=== PATIENT | male | born 1965 | race Caucasian/White ===

== ENCOUNTER 2023-01-31 12:06 | Emergency (ER) | payer MEDICAID, SELFPAY ==
[2023-01-31] VITALS (8 sets, daily range): BP systolic 113–144; BP diastolic 63–87; PULSE 52–79; RESP 17–18; TEMP 36.6–36.7; O2SAT 95–98; BMI 28.0
--- NOTE | 2023-01-31 12:46 | CT_ITS ---
FINAL REPORT TECHNIQUE: Axial CT images of the abdomen and pelvis were obtained after the administration of IV contrast. Coronal reformatted images were also obtained and reviewed. This study was performed with techniques to keep radiation doses as low as reasonably achievable (ALARA). Individualized dose reduction techniques using automated exposure control or adjustment of mA and/or kV according to the patient's size were employed. CLINICAL HISTORY: abd pain, distention COMPARISON: none FINDINGS: CT OF THE ABDOMEN AND PELVIS WITH CONTRAST Abdomen: The lung bases are clear. The heart is normal in size. There is fatty infiltration of the liver. The gallbladder is present. The spleen is unremarkable. No adrenal mass is present. The pancreas has an unremarkable appearance. There is mild bilateral hydronephrosis and hydroureter. The aorta is normal in caliber. There is no free fluid or adenopathy. No mass or abnormal fluid collection is seen. Pelvis: The appendix normal. The urinary bladder is diffusely distended and extends to the level of the umbilicus. There is diffuse bladder wall thickening, likely inflammatory. The prostate is diffusely enlarged measuring proximally 7 cm in transverse diameter. There is no evidence of mass or adenopathy. There is no evidence of bowel obstruction. There are small bilateral inguinal hernias containing fat. IMPRESSION: Prostate diffusely enlarged. Diffuse distention of the urinary bladder with bladder wall thickening which is likely inflammatory. Bilateral hydronephrosis and hydroureter. Fatty infiltration of the liver. Reviewed, Interpreted and Dictated by Neo Harmon III, MD Transcribed by Olga Conrad Authenticated and [facility]
[2023-01-31 13:18] LABS: Microscopic, Urine URINE MICROSCOPIC (MICROSCOPIC)
[2023-01-31 13:20] LABS: Appearance,Urine CLEAR (Clear); Bilirubin,Urine Negative (Negative); Blood, Urine 1+ (Negative); Color,Urine YELLOW (Yellow); Glucose,Urine (UA) 3+ (Negative); Ketones,Urine 1+ (Negative); Leukocyte Esterase,Urine Negative (Negative); Nitrate,Urine Negative (Negative); PH,Urine 5.5 (5.0-8.5); Protein,Urine Negative (Negative); Urobilinogen,Urine 0.2 EU/dl (0.2)
[2023-01-31 13:20] LABS: Basophils % 0.3 % (0.1-2.0); Eosinophils % 0.2 % (0.1-12.0); Hematocrit 46.3 % (42.0-52.0); Hemoglobin 15.1 g/dL (14.1-18.0); Lymphocytes # 0.9 K/mm3 (0.7-4.5); Lymphocytes % 9.7 % (10-50); Mean Corpuscular HGB Conc 32.7 g/dL (31.8-35.4); Mean Corpuscular Hemoglobin 29.7 pg (27.0-31.2); Mean Corpuscular Volume 90.8 fl (80-94); Mean Platelet Volume 10.9 fl (7.4-10.4); Monocytes # 0.5 K/mm3 (0.1-1.0); Monocytes % 4.9 % (1.7-9.3); Neutrophils # 8.1 K/mm3 (1.8-7.8); Neutrophils % 84.9 % (37.0-80.0); Platelet Count 205 K/mm3 (142-424); White Blood Count 9.5 K/mm3 (4.8-10.8)
[2023-01-31 13:25] LABS: Alanine Aminotransferase 41 U/L (12-78); Albumin Level 4.2 g/dl (3.5-5.0); Albumin/Globulin Ratio 1.3 (1.1-1.8); Alkaline Phosphatase 88 U/L (38-126); Anion Gap 19.5 mEq/L (5-15); Aspartate Amino Transferase 40 U/L (17-59); Bilirubin,Total 0.6 mg/dl (0.2-1.3); Blood Urea Nitrogen 26 mg/dl (9-20); Calcium 10.2 mg/dl (8.4-10.2); Carbon Dioxide 30 mmol/L (22.0-30.0); Chloride 89 mmol/L (98-107); Creatinine Clearance Estimated 79 mL/min (50-200); Estimated Glomerular Filt Rate 63 ml/min (>60); GFR (African American) 76 ML/MIN (>60); Globulin 3.3 g/dL (1.3-3.2); Potassium 4.5 mmoL/L (3.5-5.1); Sodium 134 mmol/L (136-145); Total Protein,Serum 7.5 g/dl (6.3-8.2)
[2023-01-31 13:26] LABS: Glucose 432 mg/dl (74-100)
--- NOTE | 2023-01-31 13:27 | PC.NURSE ---
MD & RN notified of critical lab results glucose [id number]
[2023-01-31 13:33] LABS: Bacteria,Urine Trace /lpf; Squamous Epithelial Cell,Urine Occasional #/hpf (0-5); WBC,Urine Occasional #/hpf (0-3)
[2023-01-31 13:37] LABS: Acetone, Serum (Rapid) None Detected (None Detect)
--- NOTE | 2023-01-31 13:57 | HMH.ITSTN ---
PATIENT INFORMED ME THAT HE HAD NOT BEEN GIVEN PO CONTRAST. I CALLED ER AND THEY TOLD ME TO GO AHEAD AND SCAN WITH IV ONLY
[2023-01-31 14:14] LABS: ABG HCO3 22.7 mmhg (22.0-26.0); ABG Oxygen Saturation 92 % (90-100); ABG PH 7.41 mmol/L (7.35-7.45); ABG PO2 63.7 mmhg (80-100); ABG TCO2 23.9 mmhg (23-27); Allen's Test Acceptable; Source Right Radial
--- NOTE | 2023-01-31 15:38 | HMH.EDGENADL ---
Discharge Plan Disposition Patient Disposition: Home, Self-Care Prescriptions Prescriptions: New ciprofloxacin HCl [Cipro] 500 mg tablet 500 mg PO BID Qty: 20 0RF No Action ciprofloxacin HCl [Cipro] 500 mg Tablet 500 mg PO BID tamsulosin [Flomax] 0.4 mg Capsule 0.4 mg PO HS atorvastatin 40 mg Tablet 40 mg PO HS lisinopril-hydrochlorothiazide 20-12.5 mg Tablet 2 tab PO DAILY metformin 1,000 mg Tablet 1,000 mg PO BID polyethylene glycol 3350 [Miralax] 17 gram/dose Powder 17 g PO DAILYP PRN (Reason: Constipation) Jardiance 25 mg Tablet 25 mg PO DAILY Referrals Follow up/Referrals: Kayla Monroy DO [Primary Care Provider] - See instructions Stan Daugherty [Referring] - See instructions Clinical Impressions Clinical Impression: Acute retention of urine, Hyperglycemia due to diabetes mellitus Instructions Patient Instructions: DI for Hyperglycemia -- Adult, DI for Urinary Retention in Men Print Language Print Language: Wallisian Discharge ED Provider: Matti Park Adult HPI General Chief complaint: Abdominal Pain Stated complaint: Possible prostate blockage Time Seen by Provider: 01/31/23 16:01 Mode of Arrival: Ambulatory Source of Information: Patient Limitations: No Limitations Description of Symptoms (Recalled from ER Triage Doc. by RN): c/o lower abdomen pain, nausea and no passing of gas that started yesterday, WAs seen at a physcian office last week for no BM for 2 weeks only passing gas, was given miralax, yesterday he had a large amout of diarrhea with no formed stool, after is when the symptoms started. History of Present Illness HPI narrative: Patient presents to the emergency department bilateral lower quadrant abdominal tenderness. Patient states that this has progressively worsened over the last week. He states that he is having decrease in bowel movements today. Denies any fever, chills, cough, congestion. Describes nausea without vomiting. States that he is having some difficulty urinating. Describes a history of enlarged prostate Related Data Home Medications Medication Instructions Recorded Confirmed atorvastatin 40 mg tablet 40 mg PO HS Cholesterol 01/31/23 01/31/23 ciprofloxacin HCl 500 mg tablet 500 mg PO BID UTI 01/31/23 01/31/23 (Cipro) empagliflozin 25 mg tablet 25 mg PO DAILY Diabetes 01/31/23 01/31/23 (Jardiance) lisinopril 20 2 tab PO DAILY High blood pressure 01/31/23 01/31/23 mg-hydrochlorothiazide 12.5 mg tablet metformin 1,000 mg tablet 1,000 mg PO BID Diabetes 01/31/23 01/31/23 polyethylene glycol 3350 17 17 g PO DAILYP PRN Constipation 01/31/23 01/31/23 gram/dose oral powder (Miralax) tamsulosin 0.4 mg capsule (Flomax) 0.4 mg PO HS Urinary retention 01/31/23 01/31/23 Previous Rx's Medication Instructions Recorded ciprofloxacin HCl 500 mg tablet 500 mg PO BID #20 tabs 01/31/23 (Cipro) Allergies Allergy/AdvReac Type Severity Reaction Status Date / Time codeine AdvReac Intermediate Rash Verified 01/31/23 13:08 [facility] Disclaimer: The information contained in this section may have been updated after the patient was seen, as this information can be updated by other users. Medical History Constipation Diabetes High cholesterol HTN (hypertension) Social History Smoking Status: Never smoker alcohol intake: never current occupational status: unemployed Travel in the last 8 weeks: None ROS Obtained: Yes All systems reviewed & no additional complaints except as documented Gastrointestinal Gastrointestingal: Reports abdominal pain and nausea Genitourinary Male Genitourinary: Reports difficulty urinating and Reports urinary urgency Physical Exam General General appearance: alert and in no apparent distress Head Head exam: atraumatic and normocephalic
[2023-01-31 15:52] LABS: POC Glucose,Bedside 371 (70-110)
--- NOTE | 2023-01-31 20:14 | PC.NURSE ---
received phone call from patient who stated he was concerned about the color of his urine since receiving his prescriptions earlier. discussed possible complications and advised patient to come in for re-evaluation if symptoms persisted and he was uncomfortable.
== END 2023-01-31 16:35 | disposition home or self-care (01) ==
PROVIDERS: Emergency Provider Emergency Medicine; PCP Family Medicine
DX: R33.9 Retention of urine, unspecified (principal); E11.65 Type 2 diabetes mellitus with hyperglycemia; R10.30 Lower abdominal pain, unspecified
CPT/HCPCS: 51702; 74177; 80053; 81001; 82009; 82803; 82962; 85025; 96361; 96374; 96375; 96376; 99285; J2405; Q9967

== ENCOUNTER 2023-02-20 02:07 | Emergency (ER) | payer MEDICAID, SELFPAY ==
[2023-02-20 02:09] VITALS: BP 155/73; PULSE 98; RESP 18; TEMP 36.4; O2SAT 99; BMI 28.2
--- NOTE | 2023-02-20 02:39 | HMH.EDUROGM ---
Discharge Plan Disposition Patient Disposition: Home, Self-Care Prescriptions Prescriptions: New ciprofloxacin HCl [Cipro] 500 mg tablet 500 mg PO BID Qty: 10 0RF No Action ciprofloxacin HCl [Cipro] 500 mg Tablet 500 mg PO BID tamsulosin [Flomax] 0.4 mg Capsule 0.4 mg PO HS atorvastatin 40 mg Tablet 40 mg PO HS lisinopril-hydrochlorothiazide 20-12.5 mg Tablet 2 tab PO DAILY metformin 1,000 mg Tablet 1,000 mg PO BID polyethylene glycol 3350 [Miralax] 17 gram/dose Powder 17 g PO DAILYP PRN (Reason: Constipation) Jardiance 25 mg Tablet 25 mg PO DAILY ciprofloxacin HCl [Cipro] 500 mg tablet 500 mg PO BID Qty: 20 0RF Referrals Follow up/Referrals: Kayla Monroy DO [Primary Care Provider] - See instructions Sarah (ED)Lonny MD [Emergency Provider] - See instructions Uche Velásquez MD [Referring] - See instructions Clinical Impressions Clinical Impression: Acute retention of urine Instructions Patient Instructions: How to Care for Your Martin Catheter -- Male Discharge ED Provider: Sarah (ED)Lonny Male Urogenital HPI General Chief complaint: Urogenital-Male Stated complaint: post op 02/15/23 unable to urinate Time Seen by Provider: 02/20/23 02:10 Mode of Arrival: Ambulatory Source of Information: Patient and Medical Record Limitations: No Limitations Description of Symptoms (Recalled from ER Triage Doc. by RN): pt reports recant bladder tumor removal procedure. yesterdday the pt was seen in the office and now pt is unable to void. pt requesrts a cath to relieve pressure in abdoman and lower back History of Present Illness HPI Narrative: recent urology procedure and saw dr velásquez today and martin removed but now unable to void Complaint: other (urinary retention) Onset (ago): hour(s) Duration: constant Severity: moderate recent surgery Reports denies other symptoms Related Data Home Medications Medication Instructions Recorded Confirmed atorvastatin 40 mg tablet 40 mg PO HS Cholesterol 01/31/23 01/31/23 ciprofloxacin HCl 500 mg tablet 500 mg PO BID UTI 01/31/23 01/31/23 (Cipro) empagliflozin 25 mg tablet 25 mg PO DAILY Diabetes 01/31/23 01/31/23 (Jardiance) lisinopril 20 2 tab PO DAILY High blood pressure 01/31/23 01/31/23 mg-hydrochlorothiazide 12.5 mg tablet metformin 1,000 mg tablet 1,000 mg PO BID Diabetes 01/31/23 01/31/23 polyethylene glycol 3350 17 17 g PO DAILYP PRN Constipation 01/31/23 01/31/23 gram/dose oral powder (Miralax) tamsulosin 0.4 mg capsule (Flomax) 0.4 mg PO HS Urinary retention 01/31/23 01/31/23 Previous Rx's Medication Instructions Recorded ciprofloxacin HCl 500 mg tablet 500 mg PO BID #20 tabs 01/31/23 (Cipro) ciprofloxacin HCl 500 mg tablet 500 mg PO BID #10 tabs 02/20/23 (Cipro) Allergies Allergy/AdvReac Type Severity Reaction Status Date / Time codeine AdvReac Intermediate Rash Verified 01/31/23 13:[address] [facility] Disclaimer: The information contained in this section may have been updated after the patient was seen, as this information can be updated by other users. Medical History Constipation Diabetes High cholesterol HTN (hypertension) Social History (Updated 01/31/23 @ 16:01 by Matti Park MD) Smoking Status: Never smoker alcohol intake: never current occupational status: unemployed Travel in the last 8 weeks: None ROS Obtained: Yes All systems reviewed & no additional complaints except as documented Physical Exam General General appearance: alert Head Head exam: normocephalic Eye Eye exam: Present PERRL and EOMI ENT ENT exam: Present mucous membranes moist Neck Neck exam: Present trachea midline Respiratory Respiratory exam: Absent respiratory distress Cardiovascular Cardiovascular exam: Present regular rate Abdominal Exam Abdominal exam: Present soft and other (distended
[2023-02-20 02:49] LABS: Microscopic, Urine URINE MICROSCOPIC (MICROSCOPIC)
[2023-02-20 02:50] LABS: Bilirubin,Urine Negative (Negative); Blood, Urine 3+ (Negative); Color,Urine YELLOW (Yellow); Glucose,Urine (UA) 3+ (Negative); Ketones,Urine 1+ (Negative); Leukocyte Esterase,Urine Negative (Negative); Nitrate,Urine Negative (Negative); Protein,Urine 2+ (Negative); Urobilinogen,Urine 0.2 EU/dl (0.2)
[2023-02-20 02:51] VITALS: BP 152/81; PULSE 87; RESP 16; TEMP 36.4; O2SAT 99
[2023-02-20 02:59] LABS: Appearance,Urine Slightly Cloudy (Clear)
[2023-02-20 03:07] LABS: Bacteria,Urine Trace /lpf
== END 2023-02-20 03:01 | disposition home or self-care (01) ==
PROVIDERS: Emergency Provider Emergency Medicine; PCP Family Medicine
DX: N99.89 Other postprocedural complications and disorders of genitourinary system (principal); R33.9 Retention of urine, unspecified; Y83.6 Removal of other organ (partial) (total) as the cause of abnormal reaction of the patient, or of later complication, without mention of misadventure at the time of the procedure; I10 Essential (primary) hypertension; E78.00 Pure hypercholesterolemia, unspecified; E11.9 Type 2 diabetes mellitus without complications
CPT/HCPCS: 51702; 81001; 99283; 99284

== ENCOUNTER 2023-02-25 15:58 | Emergency (ER) | payer MEDICAID, SELFPAY ==
[2023-02-25 16:00] VITALS: BP 114/75; PULSE 87; RESP 17; TEMP 36.7; O2SAT 97; BMI 28.2
[2023-02-25 16:33] LABS: Microscopic, Urine URINE MICROSCOPIC (MICROSCOPIC)
[2023-02-25 16:35] LABS: Appearance,Urine CLOUDY (Clear); Bilirubin,Urine Negative (Negative); Blood, Urine 3+ (Negative); Color,Urine RED (Yellow); Glucose,Urine (UA) 3+ (Negative); Ketones,Urine 1+ (Negative); Leukocyte Esterase,Urine 2+ (Negative); Nitrate,Urine POSITIVE (Negative); Protein,Urine 3+ (Negative)
[2023-02-25 16:48] LABS: Bacteria,Urine Trace /lpf; RBC,Urine TNTC #/hpf (0-3)
[2023-02-25 17:30] VITALS: BP 123/77; PULSE 76; RESP 18; O2SAT 97
--- NOTE | 2023-02-25 17:40 | PC.NURSE ---
Irrigated urinary catheter with 100 ml sterile water. Catheter draining to gravity. 200 ml of pink tinged urine emptied from catheter. Pt. tolerated procedure well. Instructed pt. to keep follow up with Dr. Velásquez on Saturday.
--- NOTE | 2023-02-25 17:45 | HMH.EDGENADL ---
Discharge Plan Disposition Patient Disposition: Home, Self-Care Condition: Fair Chief Complaint: Urogenital-Male Prescriptions Prescriptions: No Action tamsulosin [Flomax] 0.4 mg Capsule 0.4 mg PO HS atorvastatin 40 mg Tablet 40 mg PO HS lisinopril-hydrochlorothiazide 20-12.5 mg Tablet 2 tab PO DAILY metformin 1,000 mg Tablet 1,000 mg PO BID polyethylene glycol 3350 [Miralax] 17 gram/dose Powder 17 g PO DAILYP PRN (Reason: Constipation) Jardiance 25 mg Tablet 25 mg PO DAILY ciprofloxacin HCl [Cipro] 500 mg tablet 500 mg PO BID Referrals Follow up/Referrals: Kayla Monroy DO [Primary Care Provider] - See instructions Clinical Impressions Clinical Impression: Hematuria Instructions Patient Instructions: DI for Urinary Tract Infection (UTI) Discharge ED Provider: Quinton Agarwal General Adult HPI General Chief complaint: Urogenital-Male Stated complaint: passing blood through cathader, pain Time Seen by Provider: 02/25/23 17:49 Mode of Arrival: Ambulatory Source of Information: Patient Limitations: No Limitations Description of Symptoms (Recalled from ER Triage Doc. by RN): 57 M presents with burning, hematuria, and clots that are increasing in his catheter. He was seen here a few weeks ago with acute urinary retention, so a leg bag was placed and he was to follow-up with a urologist. He has had his catheter changed twice by urology and they are supposed to see them again on 02/27. Patient reports this new onset of burning and blood started this morning after he woke up. History of Present Illness HPI narrative: This is a 57-year-old white male who is 8 days status post urological procedure with a Fonseca catheter still in place patient said he got nervous today because he noticed there was blood clot coming from the catheter. No clots no abdominal pain no fevers or chills patient is on Cipro prophylactically. Patient denies any nausea or vomiting Related Data Home Medications Medication Instructions Recorded Confirmed atorvastatin 40 mg tablet 40 mg PO HS Cholesterol 01/31/23 02/25/23 empagliflozin 25 mg tablet 25 mg PO DAILY Diabetes 01/31/23 02/25/23 (Jardiance) lisinopril 20 2 tab PO DAILY High blood pressure 01/31/23 02/25/23 mg-hydrochlorothiazide 12.5 mg tablet metformin 1,000 mg tablet 1,000 mg PO BID Diabetes 01/31/23 02/25/23 polyethylene glycol 3350 17 17 g PO DAILYP PRN Constipation 01/31/23 02/25/23 gram/dose oral powder (Miralax) tamsulosin 0.4 mg capsule (Flomax) 0.4 mg PO HS Urinary retention 01/31/23 02/25/23 ciprofloxacin HCl 500 mg tablet 500 mg PO BID infection prevention 02/25/23 02/25/23 (Cipro) Allergies Allergy/AdvReac Type Severity Reaction Status Date / Time codeine AdvReac Intermediate Rash Verified 01/31/23 13:08 [facility] Disclaimer: The information contained in this section may have been updated after the patient was seen, as this information can be updated by other users. Medical History Constipation Diabetes High cholesterol HTN (hypertension) Social History (Updated 01/31/23 @ 16:01 by Matti Park MD) Smoking Status: Never smoker alcohol intake: never current occupational status: unemployed Travel in the last 8 weeks: None ROS Obtained: Yes All systems reviewed & no additional complaints except as documented Skin no rash or lesions HEENT no runny nose sore throat Pulmonary no cough or shortness of breath Cardiovascular no chest pain pressure heaviness GI no abdominal pain nausea or vomiting see HPI Musculoskeletal no neck or back pain Endocrine no polydipsia polyuria or polyphasia Psych no SI or HI The rest of the systems were reviewed and found to be negative Physical Exam Narrative Physical exam: Skin: Warm and dry HEENT: Normocephalic atraumatic extract muscles are intact pupils are equal and reactive to light
[2023-02-25 17:54] VITALS: BP 120/74; PULSE 76; RESP 16; TEMP 36.8; O2SAT 98
== END 2023-02-25 17:54 | disposition home or self-care (01) ==
LOC: ER 18:10
PROVIDERS: Emergency Provider Emergency Medicine; PCP Family Medicine
DX: R31.9 Hematuria, unspecified (principal); E11.9 Type 2 diabetes mellitus without complications; E78.00 Pure hypercholesterolemia, unspecified; I10 Essential (primary) hypertension; N99.89 Other postprocedural complications and disorders of genitourinary system
CPT/HCPCS: 81001; 87086; 99283

== ENCOUNTER 2023-02-27 19:45 | Emergency (ER) | payer MEDICAID, SELFPAY ==
[2023-02-27 19:46] VITALS: BP 151/92; PULSE 98; RESP 16; TEMP 37.1; O2SAT 98; BMI 27.4
--- NOTE | 2023-02-27 20:25 | HMH.EDUROGM ---
Discharge Plan Disposition Patient Disposition: Home, Self-Care Prescriptions Prescriptions: New phenazopyridine [Pyridium] 200 mg tablet 200 mg PO Q8H PRN (Reason: pain) Qty: 7 0RF No Action tamsulosin [Flomax] 0.4 mg Capsule 0.4 mg PO HS atorvastatin 40 mg Tablet 40 mg PO HS lisinopril-hydrochlorothiazide 20-12.5 mg Tablet 2 tab PO DAILY metformin 1,000 mg Tablet 1,000 mg PO BID polyethylene glycol 3350 [Miralax] 17 gram/dose Powder 17 g PO DAILYP PRN (Reason: Constipation) Jardiance 25 mg Tablet 25 mg PO DAILY ciprofloxacin HCl [Cipro] 500 mg tablet 500 mg PO BID Referrals Follow up/Referrals: Kayla Monroy DO [Primary Care Provider] - See instructions Clinical Impressions Clinical Impression: Urethral colic Instructions Patient Instructions: DI for Urinary Tract Infection (UTI), DI for Urinary Tract Infection in Children Discharge ED Provider: Sarah (ED)Lonny Male Urogenital HPI General Chief complaint: Urogenital-Male Stated complaint: pain after cathedar removal Time Seen by Provider: 02/27/23 20:26 Mode of Arrival: Ambulatory Source of Information: Patient, Spouse and Medical Record Limitations: No Limitations Description of Symptoms (Recalled from ER Triage Doc. by RN): pt had martin removed today at dr schneider office. pt c/o increasing uretha pain. pt states that he is voiding. History of Present Illness HPI Narrative: pt with pain after martin removed today - reports voiding - pt with reported pain with urination - no fever Complaint: other (post -martin pain) Onset (ago): hour(s) Duration: intermittent Severity: moderate Exacerbating factors: urination other (recent martin) Reports denies other symptoms Related Data Home Medications Medication Instructions Recorded Confirmed atorvastatin 40 mg tablet 40 mg PO HS Cholesterol 01/31/23 02/25/23 empagliflozin 25 mg tablet 25 mg PO DAILY Diabetes 01/31/23 02/25/23 (Jardiance) lisinopril 20 2 tab PO DAILY High blood pressure 01/31/23 02/25/23 mg-hydrochlorothiazide 12.5 mg tablet metformin 1,000 mg tablet 1,000 mg PO BID Diabetes 01/31/23 02/25/23 polyethylene glycol 3350 17 17 g PO DAILYP PRN Constipation 01/31/23 02/25/23 gram/dose oral powder (Miralax) tamsulosin 0.4 mg capsule (Flomax) 0.4 mg PO HS Urinary retention 01/31/23 02/25/23 ciprofloxacin HCl 500 mg tablet 500 mg PO BID infection prevention 02/25/23 02/25/23 (Cipro) Previous Rx's Medication Instructions Recorded phenazopyridine 200 mg tablet 200 mg PO Q8H PRN pain 6 doses #7 02/27/23 (Pyridium) tabs Allergies Allergy/AdvReac Type Severity Reaction Status Date / Time codeine AdvReac Intermediate Rash Verified 01/31/23 13:08 [facility] Disclaimer: The information contained in this section may have been updated after the patient was seen, as this information can be updated by other users. Medical History Constipation Diabetes High cholesterol HTN (hypertension) Social History (Updated 01/31/23 @ 16:01 by Matti Park MD) Smoking Status: Never smoker alcohol intake: never current occupational status: unemployed Travel in the last 8 weeks: None ROS Obtained: Yes All systems reviewed & no additional complaints except as documented Physical Exam General General appearance: alert Head Head exam: normocephalic Eye Eye exam: Present PERRL and EOMI ENT ENT exam: Present mucous membranes moist Neck Neck exam: Present trachea midline Respiratory Respiratory exam: Absent respiratory distress Cardiovascular Cardiovascular exam: Present regular rate Abdominal Exam Abdominal exam: Present soft Abdominal tenderness: Present suprapubic and mild Extremities Exam Extremities exam: Present full ROM Neurological Exam Neurological exam: Present alert and CN II-XII intact Skin Skin exam: Absent rash Medical Decision Ma
[2023-02-27 20:33] VITALS: BP 149/75; PULSE 89; RESP 16; TEMP 37.1; O2SAT 98
== END 2023-02-27 20:36 | disposition home or self-care (01) ==
PROVIDERS: Emergency Provider Emergency Medicine; PCP Family Medicine
DX: N36.9 Urethral disorder, unspecified (principal); R30.9 Painful micturition, unspecified; E11.9 Type 2 diabetes mellitus without complications; E78.00 Pure hypercholesterolemia, unspecified; I10 Essential (primary) hypertension
CPT/HCPCS: 99283; 99284

== ENCOUNTER 2023-03-02 13:40 | Observation (INO) | payer MEDICAID, SELFPAY ==
[2023-03-02] VITALS (7 sets, daily range): BP systolic 127–150; BP diastolic 71–85; PULSE 62–79; RESP 16–20; TEMP 36.4–36.7; O2SAT 97–98; BMI 27.4; BMI 26.5
--- NOTE | 2023-03-02 13:55 | XR_ITS ---
PROCEDURE INFORMATION: Exam: XR Complete Acute Abdomen Series Including Chest Exam date and time: 03/02/2023 1:54 PM Age: 57 years old Clinical indication: Constipation; Additional info: Constipation, eval for free air TECHNIQUE: Imaging protocol: Radiologic exam. Complete acute abdomen series, including 2 or more views of the abdomen and a single view chest. COMPARISON: CT ABDOMEN PELVIS W CON 01/31/2023 1:48 PM FINDINGS: Lungs: Normal. No consolidation. Pleural spaces: Normal. No pleural effusions. No pneumothorax. Heart/Mediastinum: Normal. No cardiomegaly. Gastrointestinal tract: Normal. No bowel dilation. No significant stool burden. Intraperitoneal space: Normal. No free air. No suspicous calcifications. Bones/joints: Normal. No acute fracture. Soft tissues: Normal. IMPRESSION: No acute findings.
--- NOTE | 2023-03-02 14:24 | HMH.EDGENADL ---
Discharge Plan Disposition Patient Disposition: Admitted Condition: Fair Chief Complaint: Abdominal Pain Prescriptions Prescriptions: No Action tamsulosin [Flomax] 0.4 mg Capsule 0.4 mg PO HS atorvastatin 40 mg Tablet 40 mg PO HS lisinopril-hydrochlorothiazide 20-12.5 mg Tablet 2 tab PO DAILY metformin 1,000 mg Tablet 1,000 mg PO BID polyethylene glycol 3350 [Miralax] 17 gram/dose Powder 17 g PO DAILYP PRN (Reason: Constipation) Jardiance 25 mg Tablet 25 mg PO DAILY phenazopyridine [Pyridium] 200 mg tablet 200 mg PO Q8H PRN (Reason: pain) Qty: 7 0RF ciprofloxacin HCl [Cipro] 500 mg tablet 500 mg PO BID Referrals Follow up/Referrals: Elsy Manuel PA [Primary Care Provider] - See instructions Clinical Impressions Clinical Impression: Constipation, Acute urinary retention, Diabetes mellitus with hyperglycemia Discharge ED Provider: Genesis Jane Adult HPI General Chief complaint: Abdominal Pain Stated complaint: constipated Time Seen by Provider: 03/02/23 13:42 Mode of Arrival: Ambulatory Source of Information: Patient Limitations: No Limitations Description of Symptoms (Recalled from ER Triage Doc. by RN): Presents to ED with complaints of constipation x4 days. OTC stool softer, miralax, and enema [employer] without any relief. Last BM Saturday morning. Patient reports he is able to pass gas. History of Present Illness HPI narrative: 57-year-old male presenting to the emergency department constipation. He has not had a bowel movement in 4 days. He feels the need to have a bowel movement, but is not able to. He denies any particular abdominal pain. He has occasional bloating, cramping. Constipation is quite atypical for him. He usually has a bowel movement daily. He has tried stool softeners and laxatives without relief. Constipation started after he received a dose of narcotic pain medication in the emergency department 5 days ago for bladder pain. He has a history of bladder cancer, had tumors removed by Dr. Velásquez. Currently does not need a urinary catheter. His urination has been normal for him. He is eating well, 3 meals daily. Drinking water to stay hydrated. Denies nausea or vomiting. Related Data Home Medications Medication Instructions Recorded Confirmed atorvastatin 40 mg tablet 40 mg PO HS Cholesterol 01/31/23 02/25/23 empagliflozin 25 mg tablet 25 mg PO DAILY Diabetes 01/31/23 02/25/23 (Jardiance) lisinopril 20 2 tab PO DAILY High blood pressure 01/31/23 02/25/23 mg-hydrochlorothiazide 12.5 mg tablet metformin 1,000 mg tablet 1,000 mg PO BID Diabetes 01/31/23 02/25/23 polyethylene glycol 3350 17 17 g PO DAILYP PRN Constipation 01/31/23 02/25/23 gram/dose oral powder (Miralax) tamsulosin 0.4 mg capsule (Flomax) 0.4 mg PO HS Urinary retention 01/31/23 02/25/23 ciprofloxacin HCl 500 mg tablet 500 mg PO BID infection prevention 02/25/23 02/25/23 (Cipro) Previous Rx's Medication Instructions Recorded phenazopyridine 200 mg tablet 200 mg PO Q8H PRN pain 6 doses #7 02/27/23 (Pyridium) tabs Allergies Allergy/AdvReac Type Severity Reaction Status Date / Time codeine AdvReac Intermediate Rash Verified 01/31/23 13:08 [facility] Disclaimer: The information contained in this section may have been updated after the patient was seen, as this information can be updated by other users. Medical History Constipation Diabetes High cholesterol HTN (hypertension) Social History (Updated 01/31/23 @ 16:01 by Matti Park MD) Smoking Status: Never smoker alcohol intake: never current occupational status: unemployed Travel in the last 8 weeks: None ROS Obtained: Yes All systems reviewed & no additional complaints except as documented Constitutional Constitutional: Denies anorexia, Denies fever(s) and Denies weakness Gastrointestinal Gastrointe
--- NOTE | 2023-03-02 14:57 | CT_ITS ---
PROCEDURE INFORMATION: Exam: CT Abdomen And Pelvis With Contrast Exam date and time: 03/02/2023 3:52 PM Age: 57 years old Clinical indication: Bloating and constipation; Additional info: Abd pain, constipation TECHNIQUE: Imaging protocol: Computed tomography of the abdomen and pelvis with contrast. Radiation optimization: All CT scans at this facility use at least one of these dose optimization techniques: automated exposure control; mA and/or kV adjustment per patient size (includes targeted exams where dose is matched to clinical indication); or iterative reconstruction. Contrast material: ISOVUE; Contrast volume: 75 ml; Contrast route: IV; REPORTING DATA: Count of CT and Cardiac NM exams in prior 12 months: This patient has received [address] and 0 known cardiac nuclear medicine studies in the 12 months prior to the current study. COMPARISON: CT ABDOMEN PELVIS W CON 01/31/2023 1:48 PM FINDINGS: Lungs: Lung bases are clear. Liver: There is fatty infiltration throughout the liver which is otherwise unremarkable. Gallbladder and bile ducts: Normal. No calcified stones. No ductal dilation. Pancreas: Unremarkable. Main pancreatic duct is not significantly dilated. Spleen: Normal. No splenomegaly. Adrenal glands: Normal. No mass. Kidneys and ureters: Normal. No hydronephrosis. Stomach and bowel: Majority the large bowel is mildly distended with stool likely reflecting some degree of constipation. Appendix: No evidence of acute appendicitis. Intraperitoneal space: Unremarkable. No free air. No significant fluid collection. Vasculature: Unremarkable. No abdominal aortic aneurysm. Lymph nodes: Unremarkable. No enlarged lymph nodes. Urinary bladder: See Reproductive finding. Reproductive: Mach prostate gland is moderately enlarged. Fonseca catheter balloon within the urinary bladder with mild diffuse thickening of the bladder wall on the current exam that should be correlated for possible cystitis. Bones/joints: Unremarkable. No acute fracture. Soft tissues: Unremarkable. IMPRESSION: 1. Large amount of stool throughout the colon likely reflecting some degree of constipation. 2. Moderate prostate enlargement. 3. Fonseca catheter balloon within the urinary bladder with mild thickening of the bladder wall. 4. Diffuse fatty infiltration of the liver.
--- NOTE | 2023-03-02 15:15 | PC.NURSE ---
Warm blanket and pillow provided. Pt updated on plan of care.
--- NOTE | 2023-03-02 15:19 | PC.NURSE ---
post void residual 1232ml. MD notified. MD to bedside. VO insertion of indwelling martin.
[2023-03-02 15:25] LABS: Basophils % 0.4 % (0.1-2.0); Eosinophils # 0.3 K/mm3 (0.0-0.4); Eosinophils % 2.7 % (0.1-12.0); Hematocrit 39.7 % (42.0-52.0); Lymphocytes # 1.2 K/mm3 (0.7-4.5); Lymphocytes % 12.8 % (10-50); Mean Corpuscular HGB Conc 32.8 g/dL (31.8-35.4); Mean Corpuscular Hemoglobin 29.4 pg (27.0-31.2); Mean Corpuscular Volume 89.4 fl (80-94); Mean Platelet Volume 11.9 fl (7.4-10.4); Monocytes # 0.6 K/mm3 (0.1-1.0); Monocytes % 6.8 % (1.7-9.3); Neutrophils % 77.2 % (37.0-80.0); Platelet Count 157 K/mm3 (142-424); Red Blood Count 4.44 M/mm3 (4.60-6.20); Red Cell Distribution Width 12.5 % (11.5-17.5)
[2023-03-02 15:27] LABS: Chloride 87 mmol/L (98-107); Sodium 127 mmol/L (136-145)
[2023-03-02 15:27] LABS: Microscopic, Urine URINE MICROSCOPIC (MICROSCOPIC)
[2023-03-02 15:28] LABS: Appearance,Urine CLEAR (Clear); Bilirubin,Urine Negative (Negative); Blood, Urine 3+ (Negative); Color,Urine ORANGE (Yellow); Glucose,Urine (UA) 3+ (Negative); Ketones,Urine Negative (Negative); Leukocyte Esterase,Urine Negative (Negative); Nitrate,Urine POSITIVE (Negative); PH,Urine 5.5 (5.0-8.5); Protein,Urine TRACE (Negative); Urobilinogen,Urine 0.2 EU/dl (0.2)
[2023-03-02 15:30] LABS: Blood Urea Nitrogen 55 mg/dl (9-20); Carbon Dioxide 28 mmol/L (22.0-30.0); Creatinine Clearance Estimated 64 mL/min (50-200); Estimated Glomerular Filt Rate 52 ml/min (>60); GFR (African American) 63 ML/MIN (>60)
[2023-03-02 15:31] LABS: Calcium 10.1 mg/dl (8.4-10.2); Lactic Acid 1.8 mmol/L (0.7-2.1)
[2023-03-02 15:35] LABS: Glucose 597 mg/dl (74-100)
[2023-03-02 15:51] LABS: RBC,Urine 20-50 #/hpf (0-3)
[2023-03-02 15:52] LABS: Bacteria,Urine 1+ /lpf
--- NOTE | 2023-03-02 16:14 | PC.NURSE ---
Fonseca dependent bag emptied
[2023-03-02 16:19] LABS: Acetone, Serum (Rapid) None Detected (None Detect)
--- NOTE | 2023-03-02 16:44 | PC.NURSE ---
Warm blanket provided.
[2023-03-02 17:01] LABS: VBG Base Excess 0.8 mmol/L (-2.4-2.3); VBG HCO3 26.3 mmol/L (23-30); VBG Oxygen Saturation 69.9 % (50-70); VBG PCO2 47.9 mmol/L (35-51); VBG PH 7.36 mmol/L (7.31-7.41); VBG Total CO2 27.7 mmol/L (23-27)
--- NOTE | 2023-03-02 17:54 | PC.NURSE ---
Pt passing flatus with small amount of stool (liquid). Pt ambulated back to room, no acute distress. Additional warm blankets provided. No further complaints. Friend at bedside.
[2023-03-02 18:10] LABS: Coronavirus 19, PCR Not Detected (NotDetected); Influenza A, PCR Not Detected (NotDetected); Influenza B, PCR Not Detected (NotDetected)
--- NOTE | 2023-03-02 18:10 | PC.NURSE ---
COVID SWAB OBTAINED AND SENT TO LAB
--- NOTE | 2023-03-02 18:40 | PC.NURSE ---
Addendum entered by Irina Styles RN 03/02/23 18:56: Correction LACEY ORDAZ Original Note: Report call to Wendy ORDAZ
--- NOTE | 2023-03-02 18:43 | PC.NURSE ---
Report received from ER. Clarification on orders for anion Gap and glucose of pt. ER MD stated that fluid resuscitation to be given then repeat labs.
--- NOTE | 2023-03-02 19:00 | EXP.HP ---
History of Present Illness *Admission Date: 03/02/23 *Reason for visit:: Urinary retention, abdominal discomfort *History of present illness: Patient with past medical history of bladder tumor status post cystoscopy/TURP 02/25/2023 presents with abdominal pain and distention. Patient states that urinary catheter was removed after surgery 02/25/2023. Denies intermittent caths at home. Patient had Fonseca catheter placed emergency with 1.4 L evacuated during ED visit. Patient states last bowel movement occurred on Saturday, was very little, and soft. present with patient and confirmed patient's story. States that Flomax stopped by urology after cystoscopy procedure at 02/25/2023. Denies fevers, chills, sick contacts, recent travel. Admits to [id number] diabetes and takes metformin at home at baseline. [facility] Disclaimer: The information contained in this section may have been updated after the patient was seen, as this information can be updated by other users. Medical History Constipation Diabetes High cholesterol HTN (hypertension) Social History (Updated 01/31/23 @ 16:01 by Matti Park MD) Smoking Status: Never smoker alcohol intake: never current occupational status: unemployed Travel in the last 8 weeks: None Review of Systems Constitutional Constitutional: Denies weakness *Musculoskeletal Musculoskeletal: Denies numbness and Denies tingling *Neurologic Neurologic: Denies numbness, Denies tingling and Denies weakness Meds Home Medications and Allergies Home Medications Medication Instructions Recorded Confirmed Type atorvastatin 40 mg tablet 40 mg PO HS Cholesterol 01/31/23 03/02/23 History empagliflozin 25 mg tablet 25 mg PO DAILY Diabetes 01/31/23 03/02/23 History (Jardiance) lisinopril 20 2 tab PO DAILY High blood pressure 01/31/23 03/02/23 History mg-hydrochlorothiazide 12.5 mg tablet metformin 1,000 mg tablet 1,000 mg PO BID Diabetes 01/31/23 03/02/23 History polyethylene glycol 3350 17 17 g PO DAILYP PRN Constipation 01/31/23 03/02/23 History gram/dose oral powder (Miralax) tamsulosin 0.4 mg capsule (Flomax) 0.4 mg PO HS Urinary retention 01/31/23 03/02/23 History phenazopyridine 200 mg tablet 200 mg PO Q8H PRN pain 6 doses #7 02/27/23 03/02/23 Rx (Pyridium) tabs New Prescriptions to Start Prescriptions: Allergies Allergy/AdvReac Type Severity Reaction Status Date / Time codeine AdvReac Intermediate Rash Verified 01/31/23 13:08 Exam Data for Last 24 hours Vital signs and Labs for Last 24 Hours: Temp Pulse Resp BP Pulse Ox 97.6 F 62 16 127/71 98 03/02/23 18:40 03/02/23 18:40 03/02/23 18:40 03/02/23 18:40 03/02/23 16:31 Laboratory Results - last 24 hr 03/02/23 13:13: Acetone Level None detected 03/02/23 14:11: Urine Color [place], Urine Appearance Clear, Urine pH 5.5, Ur Specific [place] 1.010, Urine Protein Trace, Urine Glucose (UA) 3+, Urine Ketones Negative, Urine Blood 3+, Urine Nitrate Positive, Urine Bilirubin Negative, Urine Urobilinogen 0.2, Ur Leukocyte Esterase Negative, Urine RBC 20-50, Urine WBC 3-5, Ur Squamous Epith Cells None, Urine Bacteria 1+ 03/02/23 15:20: WBC 9.0, RBC 4.44 L, Hgb 13.0 L, Hct 39.7 L, MCV 89.4, MCH 29.4, MCHC 32.8, RDW 12.5, Plt Count 157, MPV 11.9 H, Neut % (Auto) 77.2, Lymph % (Auto) 12.8, [place] % (Auto) 6.8, Eos % (Auto) 2.7, Baso % (Auto) 0.4, Neut # (Auto) 7.0, Lymph # (Auto) 1.2, [place] # (Auto) 0.6, Eos # (Auto) 0.3, Baso # (Auto) 0.0 03/02/23 15:20: Sodium 127 L, Potassium 4.0, Chloride 87 L, Carbon Dioxide 28, Anion Gap 16.0 H, BUN 55 H, Creatinine 1.40 H, Estimated Creat Clear 64, Estimated GFR 52 L, Est GFR ( Amer) 63, Glucose 597 H*, Calcium 10.1 03/02/23 15:20: Lactate 1.8 03/02/23 15:59: VBG pH 7.36, VBG pCO2 47.9, VBG pO2 38.0, VBG HCO3 26.3, VBG Total CO2 27.7 H, VBG O2 Saturation 69.9, VBG Base Excess 0.8 03/02/23 18:00: SARS-CoV-2
--- NOTE | 2023-03-02 19:19 | PC.NURSE ---
pt arrived to floor at this time
[2023-03-02 19:32] LABS: POC Glucose,Bedside 449 (70-110)
[2023-03-02 20:21] LABS: Chloride 92 mmol/L (98-107); Potassium 3.8 mmoL/L (3.5-5.1); Sodium 132 mmol/L (136-145)
[2023-03-02 20:24] LABS: Anion Gap 14.8 mEq/L (5-15); Blood Urea Nitrogen 45 mg/dl (9-20); Carbon Dioxide 29 mmol/L (22.0-30.0); Creatinine Clearance Estimated 75 mL/min (50-200); Estimated Glomerular Filt Rate 63 ml/min (>60); GFR (African American) 76 ML/MIN (>60); Glucose 383 mg/dl (74-100)
[2023-03-02 20:25] LABS: Calcium 9.9 mg/dl (8.4-10.2)
[2023-03-02 22:36] LABS: POC Glucose,Bedside 333 (70-110)
[2023-03-03 00:18] LABS: POC Glucose,Bedside 220 (70-110)
[2023-03-03 00:23] LABS: Anion Gap 12.1 mEq/L (5-15); Blood Urea Nitrogen 38 mg/dl (9-20); Carbon Dioxide 27 mmol/L (22.0-30.0); Chloride 99 mmol/L (98-107); Creatinine Clearance Estimated 97 mL/min (50-200); Potassium 3.1 mmoL/L (3.5-5.1); Sodium 135 mmol/L (136-145)
[2023-03-03 00:24] LABS: Calcium 9.7 mg/dl (8.4-10.2); Estimated Glomerular Filt Rate 87 ml/min (>60); GFR (African American) 106 ML/MIN (>60); Glucose 213 mg/dl (74-100)
--- NOTE | 2023-03-03 00:40 | PC.NURSE ---
AT 1900 RECEIVED VERBAL REPORT FROM Liam CORTEZ RN. 57 YO MALE TO BE ADMITTED FOR CONSTIPATION AND HYPERGLYCEMIA. PATIENT ARRIVED AT 1925 VIA STRETCHER. ORIENTED TO ROOM AND EQUIPEMENT. F/C TO [facility]. AT [place] BMP DRAWN AND POTASSIUM REPORT AT 0040 WAS 3.1. PATIENT ALSO C/O LEG CRAMPS. VASU MUSTAFA NOTIFIED AND AND TO ORDER ORAL POTASSIUM. PATIENT HAS HAD SEVERAL LIQUID STOOLS AFTER HIS INITIAL VERY LARGE FORMED BM.
[2023-03-03 00:46] LABS: Magnesium 1.8 mg/dl (1.6-2.3)
[2023-03-03 03:05] LABS: POC Glucose,Bedside 104 (70-110)
[2023-03-03 04:00] VITALS: BP 94/53; PULSE 77; RESP 20; TEMP 36.9; O2SAT 96; BMI 27.0
[2023-03-03 04:04] LABS: Chloride 98 mmol/L (98-107); Potassium 3.5 mmoL/L (3.5-5.1); Sodium 136 mmol/L (136-145)
[2023-03-03 04:07] LABS: Blood Urea Nitrogen 32 mg/dl (9-20); Creatinine Clearance Estimated 87 mL/min (50-200); Estimated Glomerular Filt Rate 77 ml/min (>60); GFR (African American) 94 ML/MIN (>60)
[2023-03-03 04:08] LABS: Calcium 9.5 mg/dl (8.4-10.2); Glucose 201 mg/dl (74-100)
[2023-03-03 04:51] LABS: Anion Gap 13.5 mEq/L (5-15); Carbon Dioxide 28 mmol/L (22.0-30.0)
[2023-03-03 05:59] LABS: POC Glucose,Bedside 305 (70-110)
[2023-03-03 06:53] LABS: Eosinophils # 0.2 K/mm3 (0.0-0.4); Platelet Count 151 K/mm3 (142-424); Red Cell Distribution Width 12.7 % (11.5-17.5)
[2023-03-03 07:07] LABS: Basophils % 0.5 % (0.1-2.0); Eosinophils % 3.5 % (0.1-12.0); Hematocrit 34.4 % (42.0-52.0); Lymphocytes # 0.9 K/mm3 (0.7-4.5); Lymphocytes % 15.6 % (10-50); Mean Corpuscular HGB Conc 33.2 g/dL (31.8-35.4); Mean Corpuscular Volume 87.4 fl (80-94); Mean Platelet Volume 11.6 fl (7.4-10.4); Monocytes # 0.3 K/mm3 (0.1-1.0); Neutrophils # 4.3 K/mm3 (1.8-7.8); Neutrophils % 74.5 % (37.0-80.0); Red Blood Count 3.93 M/mm3 (4.60-6.20); White Blood Count 5.8 K/mm3 (4.8-10.8)
[2023-03-03 07:08] LABS: Hemoglobin 11.4 g/dL (14.1-18.0)
[2023-03-03 07:17] LABS: Chloride 100 mmol/L (98-107)
[2023-03-03 07:18] LABS: Potassium 3.9 mmoL/L (3.5-5.1); Sodium 132 mmol/L (136-145)
[2023-03-03 07:21] LABS: Anion Gap 9.9 mEq/L (5-15); Blood Urea Nitrogen 31 mg/dl (9-20); Calcium 8.8 mg/dl (8.4-10.2); Carbon Dioxide 26 mmol/L (22.0-30.0); Creatinine Clearance Estimated 111 mL/min (50-200); Estimated Glomerular Filt Rate 100 ml/min (>60); GFR (African American) 121 ML/MIN (>60); Glucose 267 mg/dl (74-100)
[2023-03-03 07:53] VITALS: BP 114/62; PULSE 60; RESP 16; TEMP 36.7; O2SAT 96
[2023-03-03 08:21] LABS: Hemoglobin A1C 12.6 % (4.0-6.0)
--- NOTE | 2023-03-03 08:35 | XR_ITS ---
PROCEDURE INFORMATION: Exam: XR Abdomen Exam date and time: 03/03/2023 10:11 AM Age: 57 years old Clinical indication: Constipation; Additional info: Eval for resolved constipation and fecal impaction TECHNIQUE: Imaging protocol: Radiologic exam of the abdomen. Views: 2 Views. Upright and supine views. COMPARISON: CT ABDOMEN PELVIS W CON 03/02/2023 3:52 PM FINDINGS: Gastrointestinal tract: Some persistent fecal material in the right colon. No dilated bowel Intraperitoneal space: Normal. No free air. Bones/joints: Unremarkable for age. IMPRESSION: Some persistent fecal material in the right colon.
[2023-03-03 09:20] LABS: POC Glucose,Bedside 316 (70-110)
[2023-03-03 13:20] LABS: POC Glucose,Bedside 228 (70-110)
--- NOTE | 2023-03-03 14:01 | EXP.DC.SUM ---
General Admission date:: 03/02/23 Discharge date: 03/03/23 HPI HPI HPI: Patient with past medical history of bladder tumor status post cystoscopy/TURP 02/25/2023 presents with abdominal pain and distention. Patient states that urinary catheter was removed after surgery 02/25/2023. Denies intermittent caths at home. Patient had Fonseca catheter placed emergency with 1.4 L evacuated during ED visit. Patient states last bowel movement occurred on Saturday, was very little, and soft. present with patient and confirmed patient's story. States that Flomax stopped by urology after cystoscopy procedure at 02/25/2023. Denies fevers, chills, sick contacts, recent travel. Admits to [id number]-vgzlphhzh diabetes and takes metformin at home at baseline. Hospital Course Hospital Course Hospital Course: Patient with history of bladder cancer status post cystoscopy with biopsy and TURP 02/15/2023 presents with abdominal distention/pain. Patient rapidly diagnosed with abdominal distention secondary to constipation and urinary retention. Patient had Fonseca placed in emergency room, with over 3 L urine removed during hospitalization. Patient also had admission blood sugar 597 mg/dL, which was corrected by Dr. Howe over 19-hour interval during hospitalization. Patient given 8 units of regular IV insulin x1 after admission to medical floor, with blood sugars following from 597 to 104 over 7-hour interval. Patient also placed on high-dose sliding scale with every 4 hours Accu-Cheks. Patient admitted to being noncompliant with Jardiance medication as outpatient due to concerns about it worsening urinary retention. Patient states he was taking metformin as prescribed as outpatient. Admission hemoglobin A1c 12.6. Patient responded well to both long/short acting insulin given during hospitalization. Patient ultimately discharged on Lantus 20 units subcu every morning and sliding scale short acting insulin given 30 minutes before every meal and bedtime. Patient advised to follow-up with primary care physician, personal development educator, and guest relations coordinator closely as outpatient for improved glycemic control. Patient admitted to chronic Fonseca use prior to cystoscopy procedure 02/25/2023. Patient stated urologist was trying voiding trial explaining why Fonseca was removed after cystoscopy 02/15/2023 procedure. Patient ultimately discharged from hospital with Fonseca in place, and instructed to follow-up with urologist as outpatient to determine when Fonseca could be removed. Patient also restarted on Flomax therapy during hospitalization. Patient's constipation improved after enema x1, lactulose 20 g x 1, and MiraLAX 17 g by mouth twice daily given over 10-hour interval. Serial acute abdominal series showed resolving constipation pattern. Patient discharged home on as needed MiraLAX, and with instruction to follow-up with primary care physician for further constipation relief advised. Patient also discharged on FiberCon daily. Exam Data for Last 24 hours Vital signs and Labs for Last 24 Hours: Temp Pulse Resp BP Pulse Ox 98.0 F 60 16 114/62 96 03/03/23 07:53 03/03/23 07:53 03/03/23 07:53 03/03/23 07:53 03/03/23 07:53 Laboratory Results - last 24 hr 03/02/23 13:13: Acetone Level None detected 03/02/23 14:11: Urine Color [place], Urine Appearance Clear, Urine pH 5.5, Ur Specific [place] 1.010, Urine Protein Trace, Urine Glucose (UA) 3+, Urine Ketones Negative, Urine Blood 3+, Urine Nitrate Positive, Urine Bilirubin Negative, Urine Urobilinogen 0.2, Ur Leukocyte Esterase Negative, Urine RBC 20-50, Urine WBC 3-5, Ur Squamous Epith Cells None, Urine Bacteria 1+ 03/02/23 15:20: WBC 9.0, RBC 4.44 L, Hgb 13.0 L, Hct 39.7 L, MCV 89.4, MCH 29.4, MCHC 32.8, RDW 12.5, Plt Count 157, MPV 11.9 H, Neut % (Auto) 77.2, Lymph % (Auto) 12.8, [place] % (Auto) 6.8, Eos % (Auto) 2.7, Baso % (Auto) 0.4, Neut # (Auto) 7.0, Lymph # (Auto) 1.2, [place] # (Auto) 0.6, Eos # (Auto) 0.3, Baso # (Aut
[2023-03-03 20:34] LABS: POC Glucose,Bedside 247 (70-110)
--- NOTE | 2023-03-04 15:14 | CARE MANAGER ---
Contacted patient related to hospital discharge. He states he is doing well. He gets the rest of his medication today. He is aware of the changes and we clarified his insulin dosage. Patient has already made his follow up appointments.
== END 2023-03-03 15:46 | disposition home or self-care (01) ==
LOC: ER 18:10 → 2ND 18:41
PROVIDERS: Nurse Practitioner; Admitting Provider Internal Medicine; Emergency Provider Emergency Medicine; PCP Physician Assistant; Visit Provider Internal Medicine
DX: R33.8 Other retention of urine (principal); E11.65 Type 2 diabetes mellitus with hyperglycemia; K59.00 Constipation, unspecified; Z79.899 Other long term (current) drug therapy; Z79.84 Long term (current) use of oral hypoglycemic drugs; C67.9 Malignant neoplasm of bladder, unspecified
CPT/HCPCS: 36415; 51702; 74019; 74021; 74177; 80048; 81001; 82009; 82803; 82962; 83036; 83605; 83735; 85025; 87636; 99285; C9803; G0378; J3475; Q9967; U0003; U0005

== ENCOUNTER → 2023-03-07 12:00 | Outpatient (CLI) | payer MEDICAID, SELFPAY ==
[2023-03-07 12:44] LABS: Basophils % 0.7 % (0.1-2.0); Eosinophils # 0.3 K/mm3 (0.0-0.4); Eosinophils % 4.5 % (0.1-12.0); Hematocrit 40.9 % (42.0-52.0); Hemoglobin 13.6 g/dL (14.1-18.0); Lymphocytes # 1.4 K/mm3 (0.7-4.5); Lymphocytes % 23.5 % (10-50); Mean Corpuscular HGB Conc 33.2 g/dL (31.8-35.4); Mean Corpuscular Hemoglobin 29.3 pg (27.0-31.2); Mean Corpuscular Volume 88.4 fl (80-94); Monocytes # 0.5 K/mm3 (0.1-1.0); Monocytes % 8.5 % (1.7-9.3); Neutrophils # 3.7 K/mm3 (1.8-7.8); Neutrophils % 62.8 % (37.0-80.0); Platelet Count 205 K/mm3 (142-424); Red Blood Count 4.62 M/mm3 (4.60-6.20); Red Cell Distribution Width 12.5 % (11.5-17.5)
[2023-03-07 12:58] LABS: Alanine Aminotransferase 70 U/L (12-78); Albumin Level 3.9 g/dl (3.5-5.0); Albumin/Globulin Ratio 1.4 (1.1-1.8); Alkaline Phosphatase 142 U/L (38-126); Anion Gap 16.1 mEq/L (5-15); Aspartate Amino Transferase 58 U/L (17-59); Bilirubin,Total 0.4 mg/dl (0.2-1.3); Blood Urea Nitrogen 26 mg/dl (9-20); Calcium 9.3 mg/dl (8.4-10.2); Carbon Dioxide 27 mmol/L (22.0-30.0); Chloride 95 mmol/L (98-107); Chol/HDL Ratio 2.8 (1-3.5); Cholesterol 110 mg/dl (140-200); Estimated Glomerular Filt Rate 87 ml/min (>60); GFR (African American) 106 ML/MIN (>60); Globulin 2.8 g/dL (1.3-3.2); Glucose 358 mg/dl (74-100); HDL Cholesterol 40 mg/dl (40-60); Potassium 4.1 mmoL/L (3.5-5.1); Sodium 134 mmol/L (136-145); Total Protein,Serum 6.7 g/dl (6.3-8.2); Triglycerides 192 mg/dl (30-150); VLDL Cholesterol 38 mg/dL (0-40)
[2023-03-07 13:10] LABS: Direct LDL Cholesterol 48.42 mg/dL (100-129)
[2023-03-07 13:15] LABS: 25-OH Vitamin D, Total 35.5 ng/mL (30-100)
[2023-03-07 13:29] LABS: Prostate Specific Ag Screen 10.1 ng/ml (0.0-4.0); Thyroid Stimulating Hormone 2.36 uIU/mL (0.465-4.68)
[2023-03-07 13:42] LABS: Hemoglobin A1C 12.3 % (4.0-6.0)
== END ==
PROVIDERS: PCP Physician Assistant; Visit Provider Physician Assistant
DX: E11.65 Type 2 diabetes mellitus with hyperglycemia (principal); R33.8 Other retention of urine; Z79.4 Long term (current) use of insulin; Z85.51 Personal history of malignant neoplasm of bladder; Z12.5 Encounter for screening for malignant neoplasm of prostate; Z79.899 Other long term (current) drug therapy
CPT/HCPCS: 80053; 80061; 82306; 83036; 84443; 85025; G0103

== ENCOUNTER → 2023-03-11 23:38 | Outpatient (CLI) | payer MEDICAID, SELFPAY | PROVIDERS: PCP Physician Assistant; Visit Provider Physician Assistant | DX: R30.0 Dysuria (principal); B95.7 Other staphylococcus as the cause of diseases classified elsewhere | CPT/HCPCS: 87086; 87088; 87186 ==

== ENCOUNTER 2023-03-24 05:45 | Emergency (ER) | payer MEDICAID, SELFPAY ==
[2023-03-24 05:46] VITALS: BP 130/77; PULSE 61; RESP 19; TEMP 36.6; O2SAT 98; BMI 26.6
--- NOTE | 2023-03-24 06:35 | HMH.EDUROGM ---
Discharge Plan Disposition Patient Disposition: Home, Self-Care Chief Complaint: Urogenital-Male Prescriptions Prescriptions: No Action potassium chloride 20 mEq tablet,ER particles/crystals 20 meq PO DAILY Rx Instructions: x3 days phenazopyridine [Pyridium] 200 mg tablet 200 mg PO Q8H PRN (Reason: pain) Qty: 7 0RF atorvastatin 40 mg Tablet 40 mg PO HS lisinopril-hydrochlorothiazide 20-12.5 mg Tablet 2 tab PO DAILY insulin aspart U-100 [Novolog FlexPen U-100 Insulin] 100 unit/mL (3 mL) insulin pen 2 - 15 unit SQ ACHS Qty: 15 5RF Rx Instructions: Please check your blood sugar 30 minutes prior to eating 3 times a day. Please also check blood sugar before going to sleep. If blood sugar 151 to 200 mg/dL administer 2 units subcu short acting insulin If blood sugar 201 to 250 mg/dL administer 5 units subcu short acting insulin If blood sugar 251 to 300 mg/dL administer 8 units subcu short acting insulin If blood sugar 301 to 350 mg/dL administer 10 units subcu short acting insulin If blood sugar 351 to 400 mg/dL administer 12 units subcu short acting insulin If blood sugar over 400 mg/dL administer 12 units subcu short acting insulin and call doctor for further instructions. levofloxacin 500 mg tablet 500 mg PO DAILY tamsulosin [Flomax] 0.4 mg capsule 0.4 mg PO DAILY metformin 1,000 mg tablet 1,000 mg PO BID calcium polycarbophil [FiberCon] 625 mg tablet 625 mg PO DAILY insulin glargine [Lantus Solostar U-100 Insulin] 100 unit/mL (3 mL) insulin pen 20 unit SQ DAILY (DME) pen needle, diabetic [Comfort EZ Pen Flushing] 32 gauge x 3/16 needle See Rx Instructions .ROUTE Rx Instructions: As directed Linzess 145 mcg capsule 145 mcg PO DAILY Jardiance 25 mg tablet 25 mg PO DAILY Referrals Follow up/Referrals: Elsy Manuel PA [Primary Care Provider] - See instructions Uche Velásquez MD [Referring] - See instructions Clinical Impressions Clinical Impression: Complication of Martin catheter Instructions Patient Instructions: How to Care for Your Martin Catheter -- Male Discharge ED Provider: Sarah (ED)Lonny Male Urogenital HPI General Chief complaint: Urogenital-Male Stated complaint: Catheter issues Time Seen by Provider: 03/24/23 06:35 Mode of Arrival: Family Vehicle Source of Information: Patient Limitations: No Limitations Description of Symptoms (Recalled from ER Triage Doc. by RN): Pt c/o penile and uretheral pain from martin catheter. He had a TURP on Thursday 03/[address] Vel[facility]quez at [facility]. Reports he is supposed to keep the catheter in until his follow up to Tuesday 03/27. The martin cathether is patent of light pink urine. No clots present. Pt concerned that the pain is d/t the catheter begin too thick and not flexible . He has not attempted to call Dr. Velásquez or on-call Urology. History of Present Illness HPI Narrative: recent urology surg -pt has no vomiting and martin draining well MD Complaint: other (post -op martin ) Onset (ago): day(s) Severity: moderate Reports denies other symptoms Related Data Home Medications Medication Instructions Recorded Confirmed atorvastatin 40 mg tablet 40 mg PO HS Cholesterol 01/31/23 03/24/23 lisinopril 20 2 tab PO DAILY High blood pressure 01/31/23 03/24/23 mg-hydrochlorothiazide 12.5 mg tablet potassium chloride 20 mEq 20 meq PO DAILY Supplement 03/07/23 03/24/23 tablet,extended release(part/cryst) calcium polycarbophil 625 mg 625 mg PO DAILY Constipation 03/24/23 03/24/23 tablet (FiberCon) empagliflozin 25 mg tablet 25 mg PO DAILY Diabetes 03/24/23 03/24/23 (Jardiance) insulin glargine 100 unit/mL (3 20 unit SQ DAILY Diabetes 03/24/23 03/24/23 mL) subcutaneous pen (Lantus Solostar U-100 Insulin) levofloxacin 500 mg tablet 500 mg PO DAILY post op abx 03/24/23 03/24/23 linaclotide 145 mcg capsule 145 mcg PO DAILY jay
--- NOTE | 2023-03-24 06:37 | PC.NURSE ---
Dr. Smith at
[2023-03-24 06:57] VITALS: BP 128/78; PULSE 60; RESP 18; TEMP 36.7; O2SAT 98
== END 2023-03-24 07:10 | disposition home or self-care (01) ==
PROVIDERS: Emergency Provider Emergency Medicine; PCP Physician Assistant
DX: T83.84XA Pain due to genitourinary prosthetic devices, implants and grafts, initial encounter (principal); E11.9 Type 2 diabetes mellitus without complications; E78.00 Pure hypercholesterolemia, unspecified; I10 Essential (primary) hypertension; Z85.51 Personal history of malignant neoplasm of bladder
CPT/HCPCS: 99283

== ENCOUNTER → 2023-05-13 14:40 | Outpatient (CLI) | payer MEDICAID, SELFPAY ==
[2023-05-13 15:19] LABS: Hemoglobin A1C 11.9 % (4.0-6.0)
== END ==
PROVIDERS: PCP Physician Assistant; Visit Provider Physician Assistant
DX: E11.65 Type 2 diabetes mellitus with hyperglycemia (principal); Z79.4 Long term (current) use of insulin
CPT/HCPCS: 36415; 83036

== ENCOUNTER → 2023-08-27 18:17 | Outpatient (CLI) | payer MEDICAID, SELFPAY ==
[2023-08-27 15:06] LABS: Adenovirus,PCR Not Detected (NotDetected); Coronavirus 229E Not Detected (NotDetected); Coronavirus NL63 Not Detected (NotDetected); Coronavirus OC43 Not Detected (NotDetected); Coronovirus HKU1,PCR Not Detected (NotDetected); Human Metapneumovirus Not Detected (NotDetected); Influenza A, PCR Not Detected (NotDetected); Influenza AH1, 2009 Not Detected (NotDetected); Influenza AH1, PCR Not Detected (NotDetected); Influenza AH3,PCR Not Detected (NotDetected); Influenza B, PCR Not Detected (NotDetected); Parainfluenza 1, PCR Not Detected (NotDetected); Parainfluenza 2, PCR Not Detected (NotDetected); Parainfluenza 3, PCR Not Detected (NotDetected); Parainfluenza 4, PCR Not Detected (NotDetected); Respiratory Syncytial Virus Not Detected (NotDetected); Rhinovirus/Enterovirus Not Detected (NotDetected)
[2023-08-27 21:56] LABS: Coronavirus 19, PCR Detected (NotDetected)
== END ==
PROVIDERS: PCP Nurse Practitioner Family; Visit Provider Nurse Practitioner Family
DX: J06.9 Acute upper respiratory infection, unspecified (principal); U07.1 COVID-19
CPT/HCPCS: 87632; 87635

== ENCOUNTER 2023-09-19 08:12 | Day surgery (SDC) | payer MEDICAID, SELFPAY ==
[2023-09-17 14:24] VITALS: BMI 30.7
[2023-09-19] MEDS: LACTATED RINGERS 1000ML 1,000 ML 100 ML IV (08:18)
[2023-09-19 08:26] VITALS: BP 127/67; PULSE 74; RESP 20; TEMP 36.2; O2SAT 97
[2023-09-19 08:36] LABS: POC Glucose,Bedside 159 (70-110)
--- NOTE | 2023-09-19 09:21 | P.PNANES_ITS ---
[facility] Disclaimer: The information contained in this section may have been updated after the patient was seen, as this information can be updated by other users. Medical History Bladder CA in situ Bladder cancer Bladder cancer Constipation Constipation Diabetes Fonseca catheter in place High cholesterol HTN (hypertension) Surgical History History of prostate surgery Family History Grandmother Diabetes Family history of myocardial infarction Mother Diabetes Family history of myocardial infarction Father Diabetes Grandfather Diabetes Family history of myocardial infarction Social History Smoking Status: Never smoker alcohol intake: former substance use type: denies use current occupational status: unemployed and disabled Travel in the last 8 weeks: None caffeine: Yes [facility] Anesthesia Checklist Patient Identification Patient Identification: Arm Band Structural Data Admitted From: Home Planned Operative Procedure/s: EGD/Colonoscopy Consent for Planned Operative Procedure(s) Verified: Yes Verified Documents: Surgical Consent and History and Physical NPO Status Verified Time NPO: 00:00 Additional verifications Anesthesia Reactions: No Airway Assessment Mallampati Score:: Class II C-Spine Mobility Assessed: Yes TMJ Mobility Assessed: Yes Dentition: Good Dentition Neurological Assessment Level of Consciousness: Awake and Alert Anesthesia Plan Anesthesia Risk discussed: Yes Anesthesia Plan: Verified ASA Class: II Anesthesia Type: MAC
[2023-09-19 09:30] VITALS: O2SAT 98
--- NOTE | 2023-09-19 09:49 | HMH.SCOPE ---
Procedure: Date: 09/19/23 Patient Date of :: 1965 Procedure Performed:: EGD Indications:: Tarry Stools & GERD Performing Provider:: Suyapa Espinal MD Referring Provider:: Elma Espinal APRN Sedation:: Propofol Procedure:: The gastroscope was gently passed through the incisoral orifice into the oral cavity and under direct visualization the esophagus was intubated. The endoscope was passed down the esophagus, through the stomach, and into the duodenum. Color, texture, mucosa, and anatomy of the esophagus, stomach, and duodenum were carefully examined with the scope. Findings:: Oropharynx: normal Esophagus: normal EG Junction: intact at 40 cm Cardia: normal Fundus: normal Body: normal Antrum: normal Duodenal bulb: normal Duodenum (second and third portion): normal Impression: Normal EGD No evidence of ulcer disease or hiatus hernia Recommendations:: Follow up with PCP Complications:: None Estimated blood obtained (mL): 0 Colonoscopy Component Colonoscopy Component Was a colonoscopy performed during today's procedure?: No
[2023-09-19 09:50] VITALS: BP 84/52; PULSE 97; RESP 16; TEMP 36.1; O2SAT 99
--- NOTE | 2023-09-19 09:51 | HMH.SCOPE ---
Procedure: Date: 09/19/23 Patient Date of :: 1965 Procedure Performed:: Screening Colonoscopy Indications:: Screening and history of tarry stools Performing Provider:: Suyapa Espinal MD Referring Provider:: Elma Espinal APRN Sedation:: Propofol Procedure:: After placing the patient in the left lateral decubitus position, the colonoscopy was gently inserted into the rectum and under direct visualization advanced to the cecum which was identified by transillumination in the right lower quadrant, identification of the ileocecal valve, appendiceal orifice, and cecal strap. Color, texture, mucosa, and anatomy of the colon were carefully examined with the scope. Findings:: Anal canal: normal Rectum: normal Sigmoid colon: normal without polyps or inflammatory changes Descending colon: normal without polyps or inflammatory changes Splenic flexure: normal Transverse colon: normal without polyps or inflammatory changes Hepatic flexure: normal Ascending colon: normal without polyps or inflammatory changes Cecum: normal Terminal ileum: not visualized Impression: Normal colonoscopy Recommendations:: Follow up examination in about TEN years or so, sooner if clinically indicated. Complications:: None Estimated blood obtained (mL): 0 Colonoscopy Component Colonoscopy Component Was a colonoscopy performed during today's procedure?: Yes Recommended follow up colonoscopy of at least 10 years?: Yes
[2023-09-19 10:00] VITALS: BP 104/67; PULSE 75; RESP 16; O2SAT 96
[2023-09-19 10:10] VITALS: BP 128/51; PULSE 61; RESP 16; O2SAT 95
[2023-09-19 10:20] VITALS: BP 117/48; PULSE 61; RESP 16; TEMP 36.6; O2SAT 97
== END 2023-09-19 10:20 | disposition home or self-care (01) ==
PROVIDERS: PCP Nurse Practitioner Family; Visit Provider Internal Medicine Gastroenterology
PROC: 0DJ08ZZ Inspection of Upper Intestinal Tract, Via Natural or Artificial Opening Endoscopic (ICD-10-PCS; CPT 43235; principal; 2023-09-19 09:30)
DX: K21.9 Gastro-esophageal reflux disease without esophagitis (principal); K92.1 Melena; E11.9 Type 2 diabetes mellitus without complications
CPT/HCPCS: 43235; 45378; 82962

== ENCOUNTER 2023-12-11 12:43 | Outpatient (CLI) | payer MEDICAID, SELFPAY ==
[2023-12-12 10:59] LABS: PSA, Free 1.35 ng/mL; Prostate Specific Ag 6.9 ng/mL (0.0-4.0)
== END 2023-12-11 23:59 ==
LOC: LAB 12:44
PROVIDERS: PCP Physician Assistant; Visit Provider Urology
DX: Z85.51 Personal history of malignant neoplasm of bladder (principal)
CPT/HCPCS: 36415; 84153; 84154

== ENCOUNTER 2024-02-01 16:44 | Observation (INO) | payer MEDICAID, SELFPAY ==
[2024-02-01] VITALS (8 sets, daily range): BP systolic 104–138; BP diastolic 56–84; PULSE 80–112; RESP 20; TEMP 36.7–37.7; O2SAT 95–98; BMI 28.1
--- NOTE | 2024-02-01 17:03 | ECG_ITS ---
APPROVED REPORT Exam: Resting ECG HR:109 bpm ECG Measurements Heart Rate 109 AXES OR 152 P 31 QRSd 98 QRS -22 QT 301 T 1 QTc 365 Conclusion SINUS TACHYCARDIA INFERIOR MYOCARDIAL INFARCTION , PROBABLY OLD [40+ ms Q WAVE AND/OR ST/T ABNORMALITY IN II/aVF] ANTEROLATERAL MYOCARDIAL INFARCTION , OF INDETERMINATE AGE [40+ ms Q WAVE IN I/aVL/V3-V6] ABNORMAL ECG UNCONFIRMED REPORT Electronically signed by : ROSITA ZARATE, 02/02/2024 03:29:15
[2024-02-01 17:12] LABS: Coronavirus 19, PCR Not Detected (NotDetected); Influenza A, PCR Not Detected (NotDetected); Influenza B, PCR Not Detected (NotDetected)
[2024-02-01 17:12] LABS: Basophils % 0.8 % (0.1-2.0); Eosinophils # 0.1 K/mm3 (0.0-0.4); Eosinophils % 1.9 % (0.1-12.0); Hematocrit 48.7 % (42.0-52.0); Hemoglobin 15.9 g/dL (14.1-18.0); Lymphocytes # 0.4 K/mm3 (0.7-4.5); Lymphocytes % 7.7 % (10-50); Mean Corpuscular HGB Conc 32.6 g/dL (31.8-35.4); Mean Corpuscular Hemoglobin 30.1 pg (27.0-31.2); Mean Corpuscular Volume 92.4 fl (80-94); Mean Platelet Volume 11.5 fl (7.4-10.4); Monocytes # 0.3 K/mm3 (0.1-1.0); Monocytes % 6.3 % (1.7-9.3); Neutrophils # 3.8 K/mm3 (1.8-7.8); Neutrophils % 83.3 % (37.0-80.0); Platelet Count 111 K/mm3 (142-424); Red Blood Count 5.28 M/mm3 (4.60-6.20); Red Cell Distribution Width 13.5 % (11.5-17.5); White Blood Count 4.6 K/mm3 (4.8-10.8)
[2024-02-01 17:16] LABS: Chloride 96 mmol/L (98-107)
[2024-02-01 17:17] LABS: Potassium 3.7 mmoL/L (3.5-5.1); Sodium 132 mmol/L (136-145)
[2024-02-01 17:19] LABS: Alanine Aminotransferase 85 U/L (12-78); Albumin Level 4.6 g/dl (3.5-5.0); Albumin/Globulin Ratio 1.5 (1.1-1.8); Alkaline Phosphatase 97 U/L (38-126); Anion Gap 14.7 mEq/L (5-15); Aspartate Amino Transferase 76 U/L (17-59); Bilirubin,Total 0.6 mg/dl (0.2-1.3); Blood Urea Nitrogen 23 mg/dl (9-20); Carbon Dioxide 25 mmol/L (22.0-30.0); Creatinine Clearance Estimated 86 mL/min (50-200); Estimated Glomerular Filt Rate 69 ml/min (>60); GFR (African American) 83 ML/MIN (>60); Total Protein,Serum 7.6 g/dl (6.3-8.2)
[2024-02-01 17:20] LABS: Calcium 10.8 mg/dl (8.4-10.2); Glucose 333 mg/dl (74-100); Glucose,Fasting 333 mg/dl (74-100)
--- NOTE | 2024-02-01 17:22 | PC.NURSE ---
Dr. Bocanegra at [facility] for pt eval
--- NOTE | 2024-02-01 17:24 | CT_ITS ---
PROCEDURE INFORMATION: Exam: CT Abdomen And Pelvis With Contrast Exam date and time: 02/01/2024 5:51 PM Age: 58 years old Clinical indication: Abdominal pain; Additional info: Periumbilical abd pain, HX bladder cancer TECHNIQUE: Imaging protocol: Computed tomography of the abdomen and pelvis with contrast. 3D rendering (Not supervised by radiologist): MIP and/or 3D reconstructed images were created by the technologist. Radiation optimization: All CT scans at this facility use at least one of these dose optimization techniques: automated exposure control; mA and/or kV adjustment per patient size (includes targeted exams where dose is matched to clinical indication); or iterative reconstruction. Contrast material: ISOVUE; Contrast volume: 100 ml; Contrast route: IV; COMPARISON: CT ABDOMEN PELVIS W CON 02/03/2023 15:52 FINDINGS: Liver: Hepatic steatosis. Gallbladder and bile ducts: Normal. No calcified stones. No ductal dilation. Pancreas: Normal. No ductal dilation. Spleen: Normal. No splenomegaly. Adrenal glands: Normal. No mass. Kidneys and ureters: Low attenuation renal lesions measuring up to 7 mm in diameter are incompletely characterized, but are likely cysts. No followup imaging is warranted. Stomach and bowel: Nonspecific bowel wall thickening of portions of small bowel. Appendix: Unremarkable appendix. Intraperitoneal space: Unremarkable. No free air. No significant fluid collection. Vasculature: The arteries demonstrate mild atherosclerotic disease. Lymph nodes: Unremarkable. No enlarged lymph nodes. Urinary bladder: Mild nonspecific urinary bladder wall thickening. Reproductive: Moderate to marked prostate enlargement with a possible TURP defect. Bones/joints: Unremarkable. No acute fracture. Soft tissues: Unremarkable. Other findings: Please see separate report for CT chest. IMPRESSION: 1. Mild nonspecific urinary bladder wall thickening. Please exclude infection. 2. Nonspecific bowel wall thickening of portions of small bowel. Please exclude enteritis. 3. Hepatic steatosis. COMMENTS: Consistent with the [employer]'s Incidental Findings Committee white paper (J Am Denise Radiol 2018): Any incidental renal lesion less than 1 cm or classified as too small to characterize, or any incidental cystic renal lesion characterized as simple-appearing, is likely benign. No follow-up imaging is recommended for these lesions per consensus recommendations based on imaging criteria.
--- NOTE | 2024-02-01 17:24 | CT_ITS ---
PROCEDURE INFORMATION: Exam: CTA Chest With Contrast Exam date and time: 02/01/2024 5:51 PM Age: 58 years old Clinical indication: Other: Chest pain to back; Additional info: Cp to back, HX bladder cancer TECHNIQUE: Imaging protocol: Computed tomographic angiography of the chest with contrast. Exam focused on the arteries. 3D rendering (Not supervised by radiologist): MIP and/or 3D reconstructed images were created by the technologist. Radiation optimization: All CT scans at this facility use at least one of these dose optimization techniques: automated exposure control; mA and/or kV adjustment per patient size (includes targeted exams where dose is matched to clinical indication); or iterative reconstruction. Contrast material: ISOVUE; Contrast volume: 100 ml; Contrast route: INTRAVENOUS (IV); COMPARISON: CT ABDOMEN PELVIS W CON 01/02/2024 17:51 FINDINGS: Pulmonary arteries: Evaluation of the pulmonary arteries is limited to the segmental arterial level due to poor bolus timing and motion artifact. Aorta: Ectasia of the ascending aorta measuring 3.8 cm. The aorta demonstrates mild atherosclerotic disease. Lungs: There is a 9 mm left lower lobe pulmonary nodule on image 57 series 5. Pleural spaces: Unremarkable. No pneumothorax. No pleural effusion. Heart: Unremarkable. No cardiomegaly. No pericardial effusion. Lymph nodes: Unremarkable. No enlarged lymph nodes. Bones/joints: Unremarkable. No acute fracture. Soft tissues: Unremarkable. IMPRESSION: 1. Evaluation of the pulmonary arteries is limited to the segmental arterial level due to poor bolus timing and motion artifact. Within the limitations of the study, no large pulmonary emboli. Small and medium sized emboli cannot be excluded. 2. There is a 9 mm left lower lobe pulmonary nodule on image 57 series 5. For both low risk and high risk patients, consider CT Chest at 3 months, PET/CT, or biopsy. (Reference: Mandie) REFERENCES: Mandie Arvizu, et al. Guidelines for Management of Incidental Pulmonary Nodules Detected on CT Images: From the Fleischner Society 2017. Radiology. 2017;284(1):228-243.
[2024-02-01 17:26] LABS: Microscopic, Urine URINE MICROSCOPIC (MICROSCOPIC)
--- NOTE | 2024-02-01 17:26 | ED_ITS ---
Discharge Plan Disposition Patient Disposition: Admitted Prescriptions Prescriptions: No Action (DME) blood-glucose meter Kit See Rx Instructions .Route Qty: 1 0RF Rx Instructions: FS TID (DME) lancets [Acti-Drake Lancets] 28 gauge misc See Rx Instructions .Route Qty: 100 3RF Rx Instructions: FS TID metformin 1,000 mg tablet 1,000 mg PO BID Qty: 60 2RF triamcinolone acetonide 0.1 % cream 1 applic topical TID Qty: 80 0RF insulin glargine [Lantus Solostar U-100 Insulin] 100 unit/mL (3 mL) insulin pen 20 unit SQ DAILY Qty: 15 2RF lisinopril-hydrochlorothiazide 20-12.5 mg tablet 2 tab PO DAILY Qty: 90 2RF (DME) pen needle, diabetic [BD Millicent 2nd Gen Pen Needle] 32 gauge x 5/32 needle See Rx Instructions .ROUTE .COMPLEX Qty: 100 12RF Dose Instruction: USE DIRECTED Rx Instructions: USE DIRECTED atorvastatin 40 mg tablet See Rx Instructions .ROUTE .COMPLEX Qty: 90 1RF Dose Instruction: TAKE 1 TABLET BY MOUTH AT BEDTIME NIGHTLY FOR CHOLESTEROL Rx Instructions: TAKE 1 TABLET BY MOUTH AT BEDTIME NIGHTLY FOR CHOLESTEROL Referrals Follow up/Referrals: Elsy Manuel PA [Primary Care Provider] - See instructions Clinical Impressions Clinical Impression: Acute pancreatitis, Pulmonary nodule Discharge ED Provider: Nicolas Bocanegra General Adult HPI General Chief complaint: Weakness Stated complaint: upset stomach, h/a, weakness, dizzy, pain all over Time Seen by Provider: 02/01/24 16:48 Mode of Arrival: Ambulatory Source of Information: Patient Limitations: No Limitations Description of Symptoms (Recalled from ER Triage Doc. by RN): pt came in with several cc from dehydration, chest pain, and body aches History of Present Illness HPI narrative: Patient is a 58-year-old male with past medical history of BPH, bladder cancer status post surgical intervention and TURP x 3, hypertension, uncontrolled diabetes that is insulin-dependent who presents emergency department for evaluation of multiple complaints. Patient has global headache, body aches, chest pain radiating through to the back, abdominal discomfort over the last 24 hours. No gait difficulties, no focal weakness, no dysuria. No shortness of breath or cough. Due to persistent symptoms he presents here for continued evaluation. Related Data Previous Rx's Medication Instructions Recorded blood-glucose meter #1 ea 06/12/23 lancets 28 gauge (Acti-Drake #100 ea 06/12/23 Lancets) insulin glargine 100 unit/mL (3 20 unit (0.2 mL) SQ DAILY Diabetes 11/21/23 mL) subcutaneous pen (Lantus #15 mL Solostar U-100 Insulin) metformin 1,000 mg tablet 1,000 mg PO BID #60 tabs 01/03/24 triamcinolone acetonide 0.1 % 1 applic topical TID #80 grams 01/03/24 topical cream lisinopril 20 2 tab PO DAILY High blood pressure 01/13/24 mg-hydrochlorothiazide 12.5 mg #90 tabs tablet pen needle, diabetic 32 gauge x #100 ea 01/28/24 (BD Millicent 2nd Gen Pen Needle) atorvastatin 40 mg tablet See Rx Instructions .Route 01/29/24 .COMPLEX #90 tabs Allergies Allergy/AdvReac Type Severity Reaction Status Date / Time codeine AdvReac Intermediate Rash Verified 01/03/24 14:23 [facility] Disclaimer: The information contained in this section may have been updated after the patient was seen, as this information can be updated by other users. Medical History (Updated 02/01/24 @ 19:12 by Nicolas Bocanegra MD) Encounter for screening colonoscopy Viral upper respiratory tract infection Broken tooth Fonseca catheter in place Bladder cancer Bladder CA in situ Bladder cancer Constipation High cholesterol HTN (hypertension) Diabetes Constipation Surgical History History of prostate surgery Family History Grandmother Diabetes Family history of myocardial infarction Mother Diabetes Family history of myocardial infarction Father Diabetes Grandfather Diabetes Family history of myocardial infarction Social History Smoking Status: Never smoker alcohol intake: former substance use type: denies use current occupational status: unemployed and disabled Travel in the last 8 weeks: None caffeine: Yes ROS Obtained: Yes Systems reviewed as appropriate & no additional complaints except as documented Physical Exam General General appearance: alert and in no apparent distress Head Head exam: atraumatic and normocephalic Eye Eye exam: Present PERRL and EOMI ENT ENT exam: Present mucous membranes moist Neck Neck exam: Present normal inspection Chest Chest inspection: Present normal inspection and symmetric chest wall rise Respiratory Respiratory exam: Present normal lung sounds bilaterally; Absent respiratory distress Cardiovascular Cardiovascular exam: Present normal rhythm and tachycardia Abdominal Exam Abdominal exam: Present soft and tenderness (Mild, periumbilical) Extremities Exam Extremities exam: Present normal inspection Neurological Exam Neurological exam: Present alert; Absent motor sensory deficit Psychiatric Psychiatric exam: Present normal affect Skin Skin exam: Present warm and dry Medical Decision Making Eduardo Inquiry Pt receiving controlled substance: No Vital Signs: 02/01/24 16:45 02/01/24 17:00 02/01/24 17:30 Temperature 99.9 F H Temperature Source Oral Pulse Rate Pulse Rate [Right Radial] 112 H Respiratory Rate 20 Blood Pressure 129/73 116/69 Blood Pressure [Right Arm] 138/84 Blood Pressure Mean 91 84 Blood Pressure Mean [Right Arm] 102 02 Sat by Pulse Oximetry 95 Oxygen Delivery Method Room Air 02/01/24 18:00 02/01/24 18:30 02/01/24 19:00 Temperature Temperature Source Pulse Rate 91 H Pulse Rate [Right Radial] Respiratory Rate Blood Pressure 125/71 114/63 104/63 L Blood Pressure [Right Arm] Blood Pressure Mean 83 75 Blood Pressure Mean [Right Arm] 02 Sat by Pulse Oximetry 96 Oxygen Delivery Method 02/01/24 19:30 Temperature Temperature Source Pulse Rate 80 Pulse Rate [Right Radial] Respiratory Rate Blood Pressure 107/60 L Blood Pressure [Right Arm] Blood Pressure Mean Blood Pressure Mean [Right Arm] 02 Sat by Pulse Oximetry 96 Oxygen Delivery Method Lab Data Lab Results 02/01/24 16:20: Lipase 1709 H 02/01/24 17:01: SARS-CoV-2 (PCR) Not detected, Influenza A Untype (PCR) Not detected, Influenza Type B (PCR) Not detected 02/01/24 17:05: WBC 4.6 L, RBC 5.28, Hgb 15.9, Hct 48.7, MCV 92.4, MCH 30.1, MCHC 32.6, RDW 13.5, Plt Count 111 L, MPV 11.5 H, Neut % (Auto) 83.3 H, Lymph % (Auto) 7.7 L, [place] % (Auto) 6.3, Eos % (Auto) 1.9, Baso % (Auto) 0.8, Neut # (Auto) 3.8, Lymph # (Auto) 0.4 L, [place] # (Auto) 0.3, Eos # (Auto) 0.1, Baso # (Auto) 0.0, Sodium 132 L, Potassium 3.7, Chloride 96 L, Carbon Dioxide 25, Anion Gap 14.7, BUN 23 H, Creatinine 1.10, Estimated Creat Clear 86, Estimated GFR 69, Est GFR ( Amer) 83, Glucose 333 H, Fasting Glucose 333 H, Lactate 3.0 H, Calcium 10.8 H, Total Bilirubin 0.6, AST 76 H, ALT 85 H, Alkaline Phosphatase 97, Troponin I 0.02, Total Protein 7.6, Albumin 4.6, Globulin 3.0, Albumin/Globulin Ratio 1.5 02/01/24 17:20: Urine Color Yellow, Urine Appearance Clear, Urine pH 5.5, Ur Specific [place] 1.010, Urine Protein Negative, Urine Glucose (UA) 3+, Urine Ketones Trace, Urine Blood Negative, Urine Nitrate Negative, Urine Bilirubin Negative, Urine Urobilinogen 0.2, Ur Leukocyte Esterase Negative, Urine RBC None, Urine WBC None, Ur Squamous Epith Cells None, Urine Bacteria None 02/01/24 17:24: VBG pH 7.39, VBG pCO2 38.0, VBG pO2 40.8 H, VBG HCO3 22.5 L, VBG Total CO2 23.7, VBG O2 Saturation 74.8 H, VBG Base Excess -2.5 L, VBG Lactic Acid 2.9 H 02/01/24 17:05 02/01/24 17:05 Orders (Tests/Meds): ED MEDICATIONS Discontinued Medications Generic Name Dose Route Start Last Admin Trade Name Freq PRN Reason Stop Dose Admin Acetaminophen 1,000 mg 02/01/24 17:26 02/01/24 17:36 Acetaminophen 1,000mg/100ml Vial IV 02/01/24 17:27 1,000 mg ONCE ONE Administration Belladonna Alkaloids 60 ml 02/01/24 17:26 02/01/24 17:36 Belladonna Alkaloids 60 Ml Ml PO 02/01/24 17:27 60 ml ONCE ONE Administration Lactated Ringer's 1,980 mls @ 990 mls/hr 02/01/24 17:24 02/01/24 17:36 Lactated Ringer's 1000 Ml Bag 30 ml/kg infuse over 2 hr (1980 ml) 02/01/24 19:23 990 mls/hr IV Administration .Q2H ONE Iopamidol 100 ml 02/01/24 17:50 02/01/24 17:53 Iopamidol-370 (76%);100ml Bottle IV 02/01/24 17:51 100 ml ONCE ONE Administration Ondansetron HCl 4 mg 02/01/24 17:26 02/01/24 17:36 Ondansetron 4mg/2ml Vial IV 02/01/24 17:27 4 mg ONCE ONE Administration Sodium Chloride 50 ml 02/01/24 17:50 02/01/24 17:53 0.9 % Sodium Chloride 50 Ml Vial IV 02/01/24 17:51 50 ml ONCE ONE Administration Sodium Chloride 10 ml 02/01/24 17:50 02/01/24 17:53 Sodium Chloride 0.9% 10ml Syr (Rad Only) IV 02/01/24 17:51 10 ml ONCE ONE Administration ORDERS Category Date Time Status CT abdomen pelvis w con Stat Cat Scan 02/01/24 17:[address] angio chest - dissection Stat Cat Scan 02/01/24 17:24 Completed Complete Blood Count Auto Diff Stat Lab 02/01/24 17:05 Completed Comprehensive Metabolic Panel Stat Lab 02/01/24 17:05 Completed FBS [Glucose,Fasting] Stat Lab 02/01/24 17:05 Completed Lactic Acid Stat Lab 02/01/24 17:05 Completed Lipase Stat Lab 02/01/24 16:20 Completed Rapid PCR Covid and Flu A/B Stat Lab 02/01/24 17:01 Completed Troponin I Q3H Lab 02/01/24 20:15 Ordered Troponin I Q3H Lab 02/01/24 23:15 Ordered Troponin I Stat Lab 02/01/24 17:05 Completed UA [Urinalysis and Microscopic] Stat Lab 02/01/24 17:20 Completed Blood Culture Stat Micro 02/01/24 18:06 Received VBG [Venous Blood Gas] Stat RT 02/01/24 17:24 Completed ECG Data Tracing #1: Independently interpreted by me, rate is 109, rhythm is regular, no ST elevation in anatomical contiguous leads, QTc 365. Medical Decision Narrative: In summary patient is a 58-year-old male past medical history described above who presents to the emergency department for evaluation of multiple complaints including headache, chest pain, abdominal pain, body aches. Patient is hemodynamically stable nontoxic-appearing upon arrival, afebrile. Suspect headache patient has a nonfocal neurologic exam and it is global therefore workup with CT imaging was considered but will be deferred at this time. No concern for CVA currently. His history and physical is consistent with viral syndrome or systemic infection. Differential also includes ACS, recurrent malignancy in the abdomen and pelvis, among others. Will be conducted with broad hematologic labs, CTA chest, CT abdomen pelvis with IV contrast. Initial interventions include sepsis bolus fluids, IV Ofirmev. Initial workup reviewed by me, hematologic labs have compensated acid-base status with slightly elevated lactate, no critical electrolyte abnormality, glucose is 333 without evidence of diabetic ketoacidosis, mild transaminitis, normal bilirubin, lipase is 1709 consistent with pancreatitis, urinalysis interpreted by me and not consistent with infection, viral swab negative. CT imaging of abdomen pelvis shows no ductal dilatation, CTA chest no acute aortic disease, mild ectasia of aorta 3.8 cm, 9 mm incidental pulmonary nodule. Upon repeat evaluation patient was feeling well however has intermittent symptoms. Given this patient will benefit from slow progressive diet over the next 24 hours and observation for which the case was discussed with hospital medicine and they will admit the patient their service for continued evaluation at this time. Critical Care Critical Care Time Critical Care Time: No
[2024-02-01 17:31] LABS: Troponin I 0.02 ng/ml (0.00-0.034)
[2024-02-01 17:31] LABS: Appearance,Urine CLEAR (Clear); Bilirubin,Urine Negative (Negative); Blood, Urine Negative (Negative); Color,Urine YELLOW (Yellow); Glucose,Urine (UA) 3+ (Negative); Ketones,Urine TRACE (Negative); Leukocyte Esterase,Urine Negative (Negative); Nitrate,Urine Negative (Negative); PH,Urine 5.5 (5.0-8.5); Protein,Urine Negative (Negative); Urobilinogen,Urine 0.2 EU/dl (0.2)
[2024-02-01] MEDS: BELLADONNA ALKALOIDS 60 ML ML PO (17:36)
[2024-02-01] MEDS: LACTATED RINGERS 1000ML 1,980 ML 990 ML IV (17:36)
[2024-02-01] MEDS: ACETAMINOPHEN 1,000MG/100ML VIAL 1000 MG IV (17:36)
[2024-02-01] MEDS: ONDANSETRON 4MG/2ML VIAL 4 MG IV (17:36)
[2024-02-01 17:40] LABS: VBG Base Excess -2.5 mmol/L (-2.4-2.3); VBG HCO3 22.5 mmol/L (23-30); VBG Oxygen Saturation 74.8 % (50-70); VBG PH 7.39 mmol/L (7.31-7.41); VBG PO2 40.8 mmol/L (28-40); VBG Total CO2 23.7 mmol/L (23-27)
[2024-02-01 17:41] LABS: Lactate Venous 2.9 mmol/L (0.4-2.0)
[2024-02-01 17:46] LABS: Lipase 1709 U/L (23-300)
--- NOTE | 2024-02-01 17:46 | PC.NURSE ---
Avani from LAB called critical result of Lipase of 1708. Repeated and confirmed and Dr. Bocanegra notified.
[2024-02-01] MEDS: IOPAMIDOL-370 (76%);100ML BOTTLE 100 ML IV (17:53)
[2024-02-01] MEDS: 0.9 % SODIUM CHLORIDE 50 ML VIAL IV (17:53)
[2024-02-01] MEDS: SODIUM CHLORIDE 0.9% 10ML SYR (RAD ONLY) 10 ML IV (17:53)
--- NOTE | 2024-02-01 19:19 | PC.NURSE ---
gave pt water to drink per ER MD
--- NOTE | 2024-02-01 19:54 | EXP.HP ---
History of Present Illness *Admission Date: 02/01/24 *Reason for visit:: abd pain *History of present illness: This is a 58-year-old male with PMHx of BPH, bladder cancer status post surgical intervention and TURP x 3, hypertension, uncontrolled IDDM who presented emergency department for evaluation of multiple complaints. Patient has global headache, body aches, chest pain radiating through to the back, abdominal discomfort over the last 24 hours. Out the symptoms. abdominal pain to the upper quadrant with nauseas and food intolerance if the main complaint. No gait difficulties, no focal weakness, no dysuria. No shortness of breath or cough. Due to persistent symptoms he presents here for continued evaluation. Admitted for further management [facility] Disclaimer: The information contained in this section may have been updated after the patient was seen, as this information can be updated by other users. Medical History (Updated 02/02/24 @ 01:22 by Raman Maza APRN) Encounter for screening colonoscopy Viral upper respiratory tract infection Broken tooth Fonseca catheter in place Bladder cancer Bladder CA in situ Bladder cancer Constipation High cholesterol HTN (hypertension) Diabetes Constipation Surgical History History of prostate surgery Family History Grandmother Diabetes Family history of myocardial infarction Mother Diabetes Family history of myocardial infarction Father Diabetes Grandfather Diabetes Family history of myocardial infarction Social History (Updated 02/01/24 @ 22:01 by Kate Steve RN) Smoking Status: Never smoker alcohol intake: former substance use type: denies use current occupational status: employed Travel in the last 8 weeks: None caffeine: Yes Review of Systems Review of Systems Review of systems:: pertinent systems reviewed and negative unless documented below Meds Home Medications and Allergies Home Medications Medication Instructions Recorded Confirmed Type blood-glucose meter #1 ea 06/12/23 01/03/24 Rx lancets 28 gauge (Acti-Drake #100 ea 06/12/23 01/03/24 Rx Lancets) insulin glargine 100 unit/mL (3 20 unit (0.2 mL) SQ DAILY Diabetes 11/21/23 02/01/24 Rx mL) subcutaneous pen (Lantus #15 mL Solostar U-100 Insulin) metformin 1,000 mg tablet 1,000 mg PO BID #60 tabs 01/03/24 02/01/24 Rx lisinopril 20 2 tab PO DAILY High blood pressure 01/13/24 02/01/24 Rx mg-hydrochlorothiazide 12.5 mg #90 tabs tablet pen needle, diabetic 32 gauge x #100 ea 01/28/24 Rx 32 (BD Millicent 2nd Gen Pen Needle) atorvastatin 40 mg tablet 40 mg PO DAILY 02/01/24 02/01/24 History New Prescriptions to Start Prescriptions: Allergies Allergy/AdvReac Type Severity Reaction Status Date / Time codeine AdvReac Intermediate Rash Verified 01/03/24 14:23 Exam Data for Last 24 hours Vital signs and Labs for Last 24 Hours: Temp Pulse Resp BP Pulse Ox O2 Del Method 99.9 F H 80 20 107/60 L 96 Room Air 02/01/24 16:45 02/01/24 19:30 02/01/24 16:45 02/01/24 19:30 02/01/24 19:30 02/01/24 16:45 Laboratory Results - last 24 hr 02/01/24 16:20: Lipase 1709 H 02/01/24 17:01: SARS-CoV-2 (PCR) Not detected, Influenza A Untype (PCR) Not detected, Influenza Type B (PCR) Not detected 02/01/24 17:05: WBC 4.6 L, RBC 5.28, Hgb 15.9, Hct 48.7, MCV 92.4, MCH 30.1, MCHC 32.6, RDW 13.5, Plt Count 111 L, MPV 11.5 H, Neut % (Auto) 83.3 H, Lymph % (Auto) 7.7 L, [place] % (Auto) 6.3, Eos % (Auto) 1.9, Baso % (Auto) 0.8, Neut # (Auto) 3.8, Lymph # (Auto) 0.4 L, [place] # (Auto) 0.3, Eos # (Auto) 0.1, Baso # (Auto) 0.0, Sodium 132 L, Potassium 3.7, Chloride 96 L, Carbon Dioxide 25, Anion Gap 14.7, BUN 23 H, Creatinine 1.10, Estimated Creat Clear 86, Estimated GFR 69, Est GFR ( Amer) 83, Glucose 333 H, Fasting Glucose 333 H, Lactate 3.0 H, Calcium 10.8 H, Total Bilirubin 0.6, AST 76 H, ALT 85 H, Alkaline Phosphatase 97, Troponin I 0.02, Total Protein 7.6, Albumin 4.6, Globulin 3.0, Albumin/Globulin Ratio 1.5 02/01/24 17:20: Urine Color Yellow, Urine Appearance Clear, Urine pH 5.5, Ur Specific [place] 1.010, Urine Protein Negative, Urine Glucose (UA) 3+, Urine Ketones Trace, Urine Blood Negative, Urine Nitrate Negative, Urine Bilirubin Negative, Urine Urobilinogen 0.2, Ur Leukocyte Esterase Negative, Urine RBC None, Urine WBC None, Ur Squamous Epith Cells None, Urine Bacteria None 02/01/24 17:24: VBG pH 7.39, VBG pCO2 38.0, VBG pO2 40.8 H, VBG HCO3 22.5 L, VBG Total CO2 23.7, VBG O2 Saturation 74.8 H, VBG Base Excess -2.5 L, VBG Lactic Acid 2.9 H Temp Pulse Resp BP Pulse Ox 97.6 F 62 16 127/71 98 03/02/23 18:40 03/02/23 18:40 03/02/23 18:40 03/02/23 18:40 03/02/23 16:31 Laboratory Results - last 24 hr 03/02/23 13:13: Acetone Level None detected 03/02/23 14:11: Urine Color [facility], Urine Appearance Clear, Urine pH 5.5, Ur Specific [place] 1.010, Urine Protein Trace, Urine Glucose (UA) 3+, Urine Ketones Negative, Urine Blood 3+, Urine Nitrate Positive, Urine Bilirubin Negative, Urine Urobilinogen 0.2, Ur Leukocyte Esterase Negative, Urine RBC 20-50, Urine WBC 3-5, Ur Squamous Epith Cells None, Urine Bacteria 1+ 03/02/23 15:20: WBC 9.0, RBC 4.44 L, Hgb 13.0 L, Hct 39.7 L, MCV 89.4, MCH 29.4, MCHC 32.8, RDW 12.5, Plt Count 157, MPV 11.9 H, Neut % (Auto) 77.2, Lymph % (Auto) 12.8, [place] % (Auto) 6.8, Eos % (Auto) 2.7, Baso % (Auto) 0.4, Neut # (Auto) 7.0, Lymph # (Auto) 1.2, [place] # (Auto) 0.6, Eos # (Auto) 0.3, Baso # (Auto) 0.0 03/02/23 15:20: Sodium 127 L, Potassium 4.0, Chloride 87 L, Carbon Dioxide 28, Anion Gap 16.0 H, BUN 55 H, Creatinine 1.40 H, Estimated Creat Clear 64, Estimated GFR 52 L, Est GFR ( Amer) 63, Glucose 597 H*, Calcium 10.1 03/02/23 15:20: Lactate 1.8 03/02/23 15:59: VBG pH 7.36, VBG pCO2 47.9, VBG pO2 38.0, VBG HCO3 26.3, VBG Total CO2 27.7 H, VBG O2 Saturation 69.9, VBG Base Excess 0.8 03/02/23 18:00: SARS-CoV-2 (PCR) Not detected, Influenza A Untype (PCR) Not detected, Influenza Type B (PCR) Not detected I & O for Last 24 hours: Intake & Output 01/29/24 01/30/24 01/31/24 02/01/24 23:59 23:59 23:59 23:59 Weight 81.647 kg Intake & Output 02/27/23 02/28/23 03/01/23 03/02/23 23:59 23:59 23:59 23:59 Output Total 1500 / 1500 Balance -1500 / -1500 Weight 77.111 kg Constitutional Constitutional: mild distress and average body habitus *Routine HEENT Exam Head: Present normocephalic and atraumatic Eye: Present EOMI ENT: Present mucous membranes dry *Routine Respiratory Exam Respiratory: Present CTA bilaterally; Absent accessory muscle use *Routine Cardiovascular Exam Cardiovascular: Present RRR, Normal S1 and Normal S2 *Routine Abdominal Exam Abdominal: Present soft, distended and guarding; Absent rebound *Routine Rectal Exam Rectal:: deferred *Routine Genitalia Exam Genitalia:: deferred *Routine Extremities Exam Extremities: Present full ROM *Routine Skin Exam Skin: Present intact and normal turgor *Routine Neurological Exam Neurological: Present alert and oriented X3 H&P: Result Imaging and Cardiology EKG: Status: image reviewed by me, Preliminary report and final report CT scan - abdomen: Status: image reviewed by me, Preliminary report and final report CT scan - chest: Status: image reviewed by me, Preliminary report and final report Assessment and Plan *Assessment and plan (1) Acute pancreatitis: Status: Acute Qualifiers: Acute pancreatitis complication: no infection or necrosis Pancreatitis type: unspecified pancreatitis type Qualified Code(s): K85.90 - Acute pancreatitis without necrosis or infection, unspecified Category: Medical Code(s): K85.90 - Acute pancreatitis without necrosis or infection, unspecified (2) Uncontrolled diabetes mellitus: Status: Acute Qualifiers: Diabetes mellitus type: type 2 Glycemic state: with hyperglycemia Qualified Code(s): E11.65 - Type 2 diabetes mellitus with hyperglycemia Category: Medical (3) History of prostate surgery: Status: Acute Category: Surgical Code(s): Z98.890 - Other specified postprocedural states (4) HTN (hypertension): Status: Acute Qualifiers: Hypertension type: unspecified Qualified Code(s): I10 - Essential (primary) hypertension Category: Medical Code(s): I10 - Essential (primary) hypertension (5) BPH (benign prostatic hyperplasia): Status: Chronic Qualifiers: Lower urinary tract symptom detail: urinary retention Lower urinary tract symptom presence: symptoms present Qualified Code(s): N40.1 - Benign prostatic hyperplasia with lower urinary tract symptoms; R33.8 - Other retention of urine Category: Medical Code(s): N40.0 - Benign prostatic hyperplasia without lower urinary tract symptoms (6) Pulmonary nodule: Status: Acute Category: Medical Code(s): R91.1 - Solitary pulmonary nodule (7) History of bladder cancer: Status: Acute Category: Medical Code(s): Z85.51 - Personal history of malignant neoplasm of bladder Plan 58-year-old male with PMHx of BPH, bladder cancer status post surgical intervention and TURP x 3, hypertension, uncontrolled IDDM who presented emergency department for evaluation along with other generalized symptoms. Initial work up showed hematologic labs slightly elevated lactate, no critical electrolyte abnormality, glucose is 333 without evidence of diabetic ketoacidosis, mild transaminitis, normal bilirubin, lipase is 1709 consistent with pancreatitis. CTA of abd/pelvis and chest non conclusive. ED requested admission. case discussed. Agreed for admission. Plan as follow: -Acute pancreatitis likely secondary to uncontrolled insulin-dependent diabetes: CT of the abdomen reviewed. No obstruction or perforation Process picture of infection etiology. Admit patient for continued monitoring Continue IV hydration Repeat a.m. monitor daily CMP. Advance diet as tolerated Optimize insulin regimen On home Lantus 22 units Sliding scale Accu-Chek before meals Diabetes diet -Other findings: CT of the abdomen and chest revealed bronchial thickening. Clinical correlation from previous history of bladder cancer Does not seem to have urinary infection Pulmonary nodule. CT recommended for follow-up. Patient made aware. Recommended for outpatient follow-up -Other chronic conditions hypertension, hyperlipidemia, BPH Reconcile resume home meds Lovenox for DVT prophylaxis. On Protonix Full code
--- NOTE | 2024-02-01 20:22 | PC.NURSE ---
called report to [facility] on 2nd floor and answered all questions
[2024-02-01 21:06] LABS: Reflex Lactic Add Lactic Reflex
[2024-02-01] MEDS: 0.9 % SODIUM CHLORIDE 1000ML 1,000 ML 100 ML IV (21:36)
[2024-02-01] MEDS: ENOXAPARIN 40MG/0.4ML SYRINGE 40 MG SQ (21:36)
[2024-02-01] MEDS: PANTOPRAZOLE 40MG TABLET 40 MG PO (21:37)
[2024-02-01] MEDS: humaLOG 100 UNITS/ML 3ML VIAL (SSI) SQ (21:37)
[2024-02-01 21:38] LABS: Troponin I 0.02 ng/ml (0.00-0.034)
[2024-02-01 21:47] LABS: Lactic Acid Follow Up (RFLX 1) 2.7 mmol/L (0.7-2.1)
[2024-02-01 23:34] LABS: Reflex Lactic (2 hrs) Add Lactic Reflex
[2024-02-01 23:44] LABS: Troponin I 0.03 ng/ml (0.00-0.034)
[2024-02-01 23:47] LABS: Lactic Acid Follow up (RFLX 2) 2.3 mmol/L (0.7-2.1)
[2024-02-02 03:26] LABS: POC Glucose,Bedside 210 (70-110)
[2024-02-02 04:00] VITALS: BP 113/59; PULSE 71; RESP 18; TEMP 37.6; O2SAT 94; BMI 29.5
[2024-02-02] MEDS: humaLOG 100 UNITS/ML 3ML VIAL (SSI) SQ ×4 (05:34→21:03)
[2024-02-02 06:44] LABS: Basophils # 0.1 K/mm3 (0-0.2); Basophils % 1.8 % (0.1-2.0); Eosinophils % 0.7 % (0.1-12.0); Hematocrit 41.3 % (42.0-52.0); Lymphocytes # 0.4 K/mm3 (0.7-4.5); Lymphocytes % 11.6 % (10-50); Mean Corpuscular HGB Conc 33.3 g/dL (31.8-35.4); Mean Corpuscular Hemoglobin 30.4 pg (27.0-31.2); Mean Corpuscular Volume 91.2 fl (80-94); Mean Platelet Volume 11.8 fl (7.4-10.4); Monocytes # 0.4 K/mm3 (0.1-1.0); Monocytes % 13.2 % (1.7-9.3); Neutrophils # 2.2 K/mm3 (1.8-7.8); Neutrophils % 72.7 % (37.0-80.0); Platelet Count 87 K/mm3 (142-424); Red Blood Count 4.53 M/mm3 (4.60-6.20); Red Cell Distribution Width 13.3 % (11.5-17.5)
[2024-02-02 06:52] LABS: Alanine Aminotransferase 63 U/L (12-78); Albumin Level 3.4 g/dl (3.5-5.0); Albumin/Globulin Ratio 1.5 (1.1-1.8); Alkaline Phosphatase 53 U/L (38-126); Anion Gap 11.5 mEq/L (5-15); Aspartate Amino Transferase 59 U/L (17-59); Bilirubin,Total 0.6 mg/dl (0.2-1.3); Blood Urea Nitrogen 15 mg/dl (9-20); Carbon Dioxide 25 mmol/L (22.0-30.0); Chloride 98 mmol/L (98-107); Creatinine Clearance Estimated 109 mL/min (50-200); Estimated Glomerular Filt Rate 87 ml/min (>60); GFR (African American) 105 ML/MIN (>60); Globulin 2.3 g/dL (1.3-3.2); Glucose 176 mg/dl (74-100); Magnesium 1.4 mg/dl (1.6-2.3); Potassium 3.5 mmoL/L (3.5-5.1); Sodium 131 mmol/L (136-145); Total Protein,Serum 5.7 g/dl (6.3-8.2)
[2024-02-02 06:53] LABS: POC Glucose,Bedside 179 (70-110)
[2024-02-02 07:21] LABS: Hemoglobin 13.8 g/dL (14.1-18.0)
[2024-02-02 07:22] VITALS: BP 110/63; PULSE 69; RESP 17; TEMP 36.6; O2SAT 94
[2024-02-02] MEDS: hydroCHLOROthiazide 12.5MG CAPSULE 12.5 MG PO (09:36)
[2024-02-02] MEDS: ENOXAPARIN 40MG/0.4ML SYRINGE 40 MG SQ (09:36)
[2024-02-02] MEDS: LISINOPRIL 20MG TABLET 20 MG PO (09:37)
[2024-02-02] MEDS: PANTOPRAZOLE 40MG TABLET 40 MG PO (09:37)
[2024-02-02] MEDS: ACETAMINOPHEN 325MG TAB 650 MG PO ×2 (11:12→23:51)
[2024-02-02 11:25] LABS: POC Glucose,Bedside 161 (70-110)
[2024-02-02] MEDS: 0.9 % SODIUM CHLORIDE 1000ML 1,000 ML 100 ML IV ×2 (12:20→23:51)
[2024-02-02 16:00] VITALS: BP 108/63; PULSE 69; RESP 16; TEMP 36.6; O2SAT 96
--- NOTE | 2024-02-02 16:25 | EXP.PN ---
Subjective *Date: 02/02/24 *Time: 16:25 Interval history: seen at bedsidem denied abdominal pain, chest pain, SOB Exam Data for Last 24 hours Vital signs and Labs for Last 24 Hours: Temp Pulse Resp BP Pulse Ox O2 Del Method 98 F 69 16 108/63 L 96 Room Air 02/02/24 16:00 02/02/24 16:00 02/02/24 16:00 02/02/24 16:00 02/02/24 16:00 02/02/24 07:22 Laboratory Results - last 24 hr 02/01/24 16:20: Lipase 1709 H 02/01/24 17:01: SARS-CoV-2 (PCR) Not detected, Influenza A Untype (PCR) Not detected, Influenza Type B (PCR) Not detected 02/01/24 17:05: WBC 4.6 L, RBC 5.28, Hgb 15.9, Hct 48.7, MCV 92.4, MCH 30.1, MCHC 32.6, RDW 13.5, Plt Count 111 L, MPV 11.5 H, Neut % (Auto) 83.3 H, Lymph % (Auto) 7.7 L, [place] % (Auto) 6.3, Eos % (Auto) 1.9, Baso % (Auto) 0.8, Neut # (Auto) 3.8, Lymph # (Auto) 0.4 L, [place] # (Auto) 0.3, Eos # (Auto) 0.1, Baso # (Auto) 0.0, Sodium 132 L, Potassium 3.7, Chloride 96 L, Carbon Dioxide 25, Anion Gap 14.7, BUN 23 H, Creatinine 1.10, Estimated Creat Clear 86, Estimated GFR 69, Est GFR ( Amer) 83, Glucose 333 H, Fasting Glucose 333 H, Lactate 3.0 H, Calcium 10.8 H, Total Bilirubin 0.6, AST 76 H, ALT 85 H, Alkaline Phosphatase 97, Troponin I 0.02, Total Protein 7.6, Albumin 4.6, Globulin 3.0, Albumin/Globulin Ratio 1.5 02/01/24 17:20: Urine Color Yellow, Urine Appearance Clear, Urine pH 5.5, Ur Specific [place] 1.010, Urine Protein Negative, Urine Glucose (UA) 3+, Urine Ketones Trace, Urine Blood Negative, Urine Nitrate Negative, Urine Bilirubin Negative, Urine Urobilinogen 0.2, Ur Leukocyte Esterase Negative, Urine RBC None, Urine WBC None, Ur Squamous Epith Cells None, Urine Bacteria None 02/01/24 17:24: VBG pH 7.39, VBG pCO2 38.0, VBG pO2 40.8 H, VBG HCO3 22.5 L, VBG Total CO2 23.7, VBG O2 Saturation 74.8 H, VBG Base Excess -2.5 L, VBG Lactic Acid 2.9 H 02/01/24 20:50: Troponin I 0.02 02/01/24 21:25: Lactate 2.7 H 02/01/24 21:35: POC Glucose 210 H 02/01/24 23:15: Lactate 2.3 H, Troponin I 0.03 02/02/24 05:33: POC Glucose 179 H 02/02/24 06:25: WBC 3.0 L D, RBC 4.53 L, Hgb 13.8 L D, Hct 41.3 L, MCV 91.2, MCH 30.4, MCHC 33.3, RDW 13.3, Plt Count 87 L, MPV 11.8 H, Neut % (Auto) 72.7, Lymph % (Auto) 11.6, [place] % (Auto) 13.2 H, Eos % (Auto) 0.7, Baso % (Auto) 1.8, Neut # (Auto) 2.2, Lymph # (Auto) 0.4 L, [place] # (Auto) 0.4, Eos # (Auto) 0.0, Baso # (Auto) 0.1, Sodium 131 L, Potassium 3.5, Chloride 98, Carbon Dioxide 25, Anion Gap 11.5, BUN 15 D, Creatinine 0.90, Estimated Creat Clear 109, Estimated GFR 87, Est GFR ( Amer) 105 D, Glucose 176 H D, Calcium 9.0, Magnesium 1.4 L, Total Bilirubin 0.6, AST 59, ALT 63 D, Alkaline Phosphatase 53, Total Protein 5.7 L, Albumin 3.4 L D, Globulin 2.3, Albumin/Globulin Ratio 1.5 02/02/24 11:14: POC Glucose 161 H I & O for Last 24 hours: Intake & Output 01/30/24 01/31/24 02/01/24 02/02/24 23:59 23:59 23:59 23:59 Intake Total 813 / 813 Output Total 250 / 250 Balance 563 / 563 Weight 81.647 kg 85.185 kg Constitutional Constitutional: no acute distress *Routine HEENT Exam Head: Present normocephalic Eye: Present EOMI and PERRL ENT: Present mucous membranes moist *Routine Neck Exam Neck: Present supple; Absent lymphadenopathy *Routine Respiratory Exam Respiratory: Present CTA bilaterally *Routine Cardiovascular Exam Cardiovascular: Present RRR *Routine Abdominal Exam Abdominal: Present soft and normoactive bowel sounds; Absent tenderness *Routine Extremities Exam Extremities: Absent cyanosis, clubbing or edema *Routine Skin Exam Skin: Present warm; Absent rash *Routine Neurological Exam Neurological: Present alert and oriented X3 Assessment and Plan *Assessment and plan (1) Acute pancreatitis: Status: Acute Qualifiers: Acute pancreatitis complication: no infection or necrosis Pancreatitis type: unspecified pancreatitis type Qualified Code(s): K85.90 - Acute pancreatitis without necrosis or infection, unspecified Category: Medical Code(s): K85.90 - Acute pancreatitis without necrosis or infection, unspecified (2) Uncontrolled diabetes mellitus: Status: Acute Qualifiers: Diabetes mellitus type: type 2 Glycemic state: with hyperglycemia Qualified Code(s): E11.65 - Type 2 diabetes mellitus with hyperglycemia Category: Medical (3) History of prostate surgery: Status: Acute Category: Surgical Code(s): Z98.890 - Other specified postprocedural states (4) HTN (hypertension): Status: Acute Qualifiers: Hypertension type: unspecified Qualified Code(s): I10 - Essential (primary) hypertension Category: Medical Code(s): I10 - Essential (primary) hypertension (5) BPH (benign prostatic hyperplasia): Status: Chronic Qualifiers: Lower urinary tract symptom presence: symptoms present Lower urinary tract symptom detail: urinary retention Qualified Code(s): N40.1 - Benign prostatic hyperplasia with lower urinary tract symptoms; R33.8 - Other retention of urine Category: Medical Code(s): N40.0 - Benign prostatic hyperplasia without lower urinary tract symptoms (6) Pulmonary nodule: Status: Acute Category: Medical Code(s): R91.1 - Solitary pulmonary nodule (7) History of bladder cancer: Status: Acute Category: Medical Code(s): Z85.51 - Personal history of malignant neoplasm of bladder Plan 58-year-old male with PMHx of BPH, bladder cancer status post surgical intervention and TURP x 3, hypertension, uncontrolled IDDM who presented emergency department for evaluation along with other generalized symptoms. Initial work up showed hematologic labs slightly elevated lactate, no critical electrolyte abnormality, glucose is 333 without evidence of diabetic ketoacidosis, mild transaminitis, normal bilirubin, lipase is 1709 consistent with pancreatitis. CTA of abd/pelvis and chest non conclusive. ED requested admission. case discussed. Agreed for admission. Plan as follow: -Acute pancreatitis likely secondary to uncontrolled insulin-dependent diabetes: CT of the abdomen reviewed. No obstruction or perforation Continue IV hydration Advance diet as tolerated Optimize insulin regimen On home Lantus 22 units Sliding scale Accu-Chek before meals Diabetes diet -Other findings: CT of the abdomen and chest revealed bronchial thickening. Clinical correlation from previous history of bladder cancer Does not seem to have urinary infection Pulmonary nodule. CT recommended for follow-up. Patient made aware. Recommended for outpatient follow-up -Other chronic conditions hypertension, hyperlipidemia, BPH Reconcile resume home meds Lovenox for DVT prophylaxis. On Protonix Full code advance diet as tolerated, likely dc 1-2 days
[2024-02-02 17:00] LABS: POC Glucose,Bedside 256 (70-110)
--- NOTE | 2024-02-02 17:48 | PC.NURSE ---
pt a&ox4 and vss. Patient had 1 time c/o pain that was releived with tylenol. Patient tolerating a liquid diet at this time.
[2024-02-02 20:00] VITALS: BP 120/72; PULSE 54; RESP 18; TEMP 37; O2SAT 99
[2024-02-02] MEDS: INSULIN GLARGINE 100 UNITS/ML 3ML FLEXPEN 20 UNIT SQ (21:04)
[2024-02-03 04:00] VITALS: BP 99/52; PULSE 54; RESP 16; TEMP 37.1; O2SAT 97; BMI 29.7
[2024-02-03 06:02] VITALS: BP 96/56; PULSE 86
--- NOTE | 2024-02-03 06:07 | PC.NURSE ---
Alert and oriented. Pt has complained of headache one time, treated per mar. ACHS FS. Pt has had no other complaints. Independent in the room. Call light in reach.
[2024-02-03 07:31] VITALS: BP 109/61; PULSE 55; RESP 13; TEMP 36.4; O2SAT 98
[2024-02-03] MEDS: PANTOPRAZOLE 40MG TABLET 40 MG PO (09:47)
[2024-02-03] MEDS: hydroCHLOROthiazide 12.5MG CAPSULE 12.5 MG PO (09:47)
[2024-02-03] MEDS: LISINOPRIL 20MG TABLET 20 MG PO (09:47)
[2024-02-03] MEDS: ENOXAPARIN 40MG/0.4ML SYRINGE 40 MG SQ (09:47)
--- NOTE | 2024-02-03 10:23 | PC.NURSE ---
respiratory helped her to bedside commode
--- NOTE | 2024-02-03 11:01 | PC.NURSE ---
disregard note sent previously
--- NOTE | 2024-02-03 14:09 | PC.NURSE ---
Notified Dr Hough that patient tolerated a regular diet for lunch and would like to be discharged home
[2024-02-03 15:23] VITALS: BP 115/67; PULSE 60; RESP 20; TEMP 36.7; O2SAT 96
--- NOTE | 2024-02-03 15:42 | P.DS_ITS ---
General Admission date:: 02/01/24 Discharge date: 02/03/24 HPI HPI HPI: This is a 58-year-old male with PMHx of BPH, bladder cancer status post surgical intervention and TURP x 3, hypertension, uncontrolled IDDM who presented emergency department for evaluation of multiple complaints. Patient has global headache, body aches, chest pain radiating through to the back, abdominal discomfort over the last 24 hours. Out the symptoms. abdominal pain to the upper quadrant with nauseas and food intolerance if the main complaint. No gait difficulties, no focal weakness, no dysuria. No shortness of breath or cough. Due to persistent symptoms he presents here for continued evaluation. Admitted for further management Hospital Course Hospital Course Hospital Course: 58-year-old male with PMHx of BPH, bladder cancer status post surgical intervention and TURP x 3, hypertension, uncontrolled IDDM who presented e mergency department for evaluation along with other generalized symptoms. Initial work up showed hematologic labs slightly elevated lactate, no critical electrolyte abnormality, glucose is 333 without evidence of diabetic ketoacidosis, mild transaminitis, normal bilirubin, lipase is 1709 consistent with pancreatitis. CTA of abd/pelvis and chest non conclusive. ED requested admission. case discussed. Agreed for admission. Plan as follow: -Acute pancreatitis likely secondary to uncontrolled insulin-dependent diabetes: resolved, tolerating diet, no comaplains of pain at discharge, patient wishes to be dishcarged marlo. patient denied any needs for pain medications at dischrged, patient counselled on Dietary restrictions and follow up appointments. He agrees with the discharge plan total time spent 38 mins Exam Data for Last 24 hours Vital signs and Labs for Last 24 Hours: Temp Pulse Resp BP Pulse Ox O2 Del Method 98.0 F 60 20 115/67 96 Room Air 02/03/24 15:23 02/03/24 15:23 02/03/24 15:23 02/03/24 15:23 02/03/24 15:23 02/03/24 15:23 Laboratory Results - last 24 hr 02/02/24 16:53: POC Glucose 256 H I & O for Last 24 hours: Intake & Output 01/31/24 02/01/24 02/02/24 02/03/24 23:59 23:59 23:59 23:59 Intake Total 1053 / 1053 2247 / 2247 Output Total 251 / 251 1050 / 1050 Balance 802 / 802 1197 / 1197 Weight 81.647 kg 85.185 kg 85.91 kg Constitutional Constitutional: no acute distress *Routine HEENT Exam Head: Present normocephalic Eye: Present EOMI and PERRL ENT: Present mucous membranes moist *Routine Neck Exam Neck: Present supple; Absent lymphadenopathy *Routine Respiratory Exam Respiratory: Present CTA bilaterally *Routine Cardiovascular Exam Cardiovascular: Present RRR *Routine Abdominal Exam Abdominal: Present soft and normoactive bowel sounds; Absent tenderness *Routine Extremities Exam Extremities: Absent cyanosis, clubbing or edema *Routine Skin Exam Skin: Present warm; Absent rash *Routine Neurological Exam Neurological: Present alert and oriented X3 Results Data Completed and Pending Labs on day of discharge: Labs from last 24 hours 02/02/24 16:53 POC Glucose 256 H DS: Diagnosis Discharge Diagnosis (1) Acute pancreatitis: Status: Acute Code(s): K85.90 - Acute pancreatitis without necrosis or infection, unspecified Qualifiers: Acute pancreatitis complication: no infection or necrosis Pancreatitis type: unspecified pancreatitis type Qualified Code(s): K85.90 - Acute pancreatitis without necrosis or infection, unspecified (2) Uncontrolled diabetes mellitus: Status: Acute Qualifiers: Diabetes mellitus type: type 2 Glycemic state: with hyperglycemia Qualified Code(s): E11.65 - Type 2 diabetes mellitus with hyperglycemia (3) History of prostate surgery: Status: Acute Code(s): Z98.890 - Other specified postprocedural states (4) HTN (hypertension): Status: Acute Code(s): I10 - Essential (primary) hypertension Qualifiers: Hypertension type: unspecified Qualified Code(s): I10 - Essential (primary) hypertension (5) BPH (benign prostatic hyperplasia): Status: Chronic Code(s): N40.0 - Benign prostatic hyperplasia without lower urinary tract symptoms Qualifiers: Lower urinary tract symptom presence: symptoms present Lower urinary tract symptom detail: urinary retention Qualified Code(s): N40.1 - Benign prostatic hyperplasia with lower urinary tract symptoms; R33.8 - Other retention of urine (6) Pulmonary nodule: Status: Acute Code(s): R91.1 - Solitary pulmonary nodule (7) History of bladder cancer: Status: Acute Code(s): Z85.51 - Personal history of malignant neoplasm of bladder Meds Home Medications and Allergies Home Medications Medication Instructions Recorded Confirmed Type insulin glargine 100 unit/mL (3 20 unit (0.2 mL) SQ DAILY Diabetes 11/21/23 02/01/24 Rx mL) subcutaneous pen (Lantus #15 mL Solostar U-100 Insulin) metformin 1,000 mg tablet 1,000 mg PO BID #60 tabs 01/03/24 02/01/24 Rx lisinopril 20 2 tab PO DAILY High blood pressure 01/13/24 02/01/24 Rx mg-hydrochlorothiazide 12.5 mg #90 tabs tablet atorvastatin 40 mg tablet 40 mg PO HS 02/01/24 02/02/24 History New Prescriptions to Start Prescriptions: Allergies Allergy/AdvReac Type Severity Reaction Status Date / Time codeine AdvReac Intermediate Rash Verified 01/03/24 14:23 Discharge Plan Disposition Patient Disposition: Home, Self-Care Condition: Good Follow up Plan Follow up with: Elsy Manuel PA [Primary Care Provider] - 02/12/24 1:45 pm Prescriptions/Medication Reconciliation: Continued metformin 1,000 mg tablet 1,000 mg PO BID Qty: 60 2RF insulin glargine [Lantus Solostar U-100 Insulin] 100 unit/mL (3 mL) insulin pen 20 unit SQ DAILY Qty: 15 2RF lisinopril-hydrochlorothiazide 20-12.5 mg tablet 2 tab PO DAILY Qty: 90 2RF atorvastatin 40 mg tablet 40 mg PO HS Problem Reconciliation Problems Reviewed?: Yes Patient Discharge Instructions ACTIVITY: Ambulate as tolerated DIET: continue same diet Patient Instructions: Acute Pancreatitis, DI for Pancreatitis Providers Primary Care Provider: Elsy Manuel Admit Provider: Valerie Hough Attending Provider: Valerie Hough
--- NOTE | 2024-02-04 15:17 | CARE MANAGER ---
Contacted patient related to hospital discharge. He states that he is holding his Metformin because it upset his stomach. He discussed this with Elsy's office this morning. He does check his blood sugar and also uses insulin. We discussed an appropriate diet for pancreatitis and patient seems to be doing better. Denies any other questions or concerns at this time. ORLIN Das
== END 2024-02-03 16:10 | disposition home or self-care (01) ==
LOC: ER 19:12 → 2ND 20:29
PROVIDERS: Nurse Practitioner Family; Admitting Provider Internal Medicine; Emergency Provider Emergency Medicine; PCP Physician Assistant; Visit Provider Internal Medicine
DX: K85.90 Acute pancreatitis without necrosis or infection, unspecified (principal); Z79.84 Long term (current) use of oral hypoglycemic drugs; Z79.4 Long term (current) use of insulin; E11.65 Type 2 diabetes mellitus with hyperglycemia; I10 Essential (primary) hypertension; N40.1 Benign prostatic hyperplasia with lower urinary tract symptoms; R33.8 Other retention of urine; Z85.51 Personal history of malignant neoplasm of bladder; E78.00 Pure hypercholesterolemia, unspecified
CPT/HCPCS: 36415; 71275; 74177; 80053; 81001; 82803; 82947; 82962; 83605; 83690; 83735; 84484; 85025; 87040; 87636; 93005; 99285; G0378; J0131; J2405; Q9967

== ENCOUNTER 2024-04-01 21:14 | Emergency (ER) | payer MEDICAID, SELFPAY ==
[2024-04-01 21:16] VITALS: BP 128/77; PULSE 70; RESP 16; TEMP 36.4; O2SAT 96; BMI 29.0
--- NOTE | 2024-04-01 21:30 | PC.NURSE ---
in room for lac repair at this time.
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
[2024-04-01] MEDS: TET/DIPHTH/PERT-ADULT 0.5ML SYRINGE 0.5 ML IM (21:37)
[2024-04-01 21:54] VITALS: BP 116/69; PULSE 68; RESP 20; TEMP 36.6; O2SAT 96
== END 2024-04-01 21:57 | disposition home or self-care (01) ==
PROVIDERS: Emergency Provider Student in an Organized Health Care Education/Training Program; PCP Physician Assistant
DX: S01.112A Laceration without foreign body of left eyelid and periocular area, initial encounter (principal); W20.8XXA Other cause of strike by thrown, projected or falling object, initial encounter; Z23 Encounter for immunization
CPT/HCPCS: 12011; 90471; 90715; 99283

== ENCOUNTER 2024-06-30 16:30 | Outpatient (CLI) | payer MEDICAID, SELFPAY ==
--- OUTSIDE RECORDS SUMMARY | 2024-06-30 16:33 | XMS_ITS | Clinical Summary ---
Author Organization [facility] Address [address] [place] [address] Phone Care Team Providers Care Filler Shredder Helper Name Role Phone Julia KERR, Giovani Unavailable [phone] Reason for Visit and Chief Complaint The Chief Complaint is: left knee pain Problems Includes: Problems addressed during this encounter and other active Problems Current Visit Onset Date Resolved Date Provider Viviana anders Status Joint Pain in the Left Knee 05/19/2024 Giovani Dumont MD Active Last Documented On 9:52AM ; [facility] Plan of Treatment We discussed treatment patient we would like to try a steroid injection need to be careful about his blood sugar and we will check the carefully take extra medication if needed he would be a good candidate for Orthovisc or LAGUERRE injection we are going to obtain a pre authorization for this as well any understands that he likely we will need knee replacement in the future he is only 58 now but we can give him a couple of years of relief with nonsurgical treatment that would be great but not guaranteed he understands that these treatments are 100% predictable by think about 50% chance we would give him some relief for a period of time Risks and benefits of the injection were outlined to the patient. They wish to proceed. The left knee was prepped with alcohol. I injected 1 cc of Celestone and 4 cc of 1% lidocaine into the joint. He tolerated this well. The needle was withdrawn and a Band-Aid was placed inside of the injection. - Last Documented On 05/20/2024 7:14AM ; [facility] Future Appointments Date Time Location Provi lobo Follow Up 07/14/2024 10:15AM [facility] ZENA Dumont MD Last Documented On 4 1:08PM ; [facility] Instructions to patient Lose weight Last Documented On 4 9:54AM ; [facility] Assessments Includes: Assessments from this encounter Findings - Overweight - Last Documented On 05/20/2024 7:14AM ; [facility] Advanced osteoarthritis history of previous ACL tear left knee - Last Documented On 05/20/2024 7:14AM ; [facility] Instructions Includes: Instructions from this encounter Instructions to patient Lose weight Last Documented On 4 9:54AM ; [facility] Medical Equipment - Implanted Devices Includes: Current Devices No Medical Equipment Recorded Medications Includes: Medications discussed during this encounter and other current Medications Current Medications (continue as prescribed) Polyethylene Glycol 3350 17 GM/SCOOP Oral Powder 05/10/2024 Provider: Henna Baldwin APRN Diagnosis: Last Documented On 4 9:52AM By Kayla Vasquez ; [facility] Atorvastatin Calcium 40 MG Oral Tablet 05/04/2024 Pr ovider: William Zarate APRN Diagnosis: Last Documented On 4 9:52AM By Kayla Vasquez ; [facility] Atorvastatin Calcium 40 MG Oral Tablet 05/04/2024 Pr ovider: William Zarate APRN Diagnosis: Last Documented On 4 9:52AM By Kayla Vasquez ; [facility] Lantus SoloStar 100 UNIT/ML Subcutaneous Solutio n Pen-injector 05/04/2024 Provider: Diagnosis: Last Documented On 4 9:52AM By Kayla Vasquez ; [facility] Lantus SoloStar 100 UNIT/ML Subcutaneous Solutio n Pen-injector 05/04/2024 Provider: Diagnosis: Last Documented On 4 9:52AM By Kayla Vasquez ; [facility] OneTouch Delica Plus [id number] Miscellaneous Provider: Diagnosis: Last Documented On 4 9:52AM By Kayla Vasquez ; [facility] OneTouch Verio Flex System w/Device Kit 04/16/2024 Emi macder: Diagnosis: Last Documented On 4 9:52AM By Kayla Vasquez ; [facility] Lisinopril-hydroCHLOROthiazide 20-12.5 MG Oral Tablet 04/10/2024 Provider: Diagnosis: Last Documented On 4 9:52AM By Kayla Vasquez ; [facility] Lisinopril-hydroCHLOROthiazide 20-12.5 MG Oral Tablet 04/10/2024 Provider: Diagnosis: Last Documented On 4 9:52AM By Kayla Vasquez ; [facility] glipiZIDE ER 10 MG Oral Tablet Extended Release 24 Cherelle r 03/09/2024 Provider: Diagnosis: Last Documented On 4 9:52AM By Kayla Vasquez ; [facility] NovoLOG FlexPen ReliOn 100 U NIT/ML Subcutaneous Solution Pen-injector 03/09/2024 Provider: Diagnosis: Last Documented On 4 9:52AM By Kayla Vasquez ; [facility] NovoLOG FlexPen ReliOn 100 U NIT/ML Subcutaneous Solution Pen-injector 03/09/2024 Provider: Diagnosis: Last Documented On 4 9:52AM By Kayla Vasquez ; [facility] Medications Administered Includes: Administered Medications from this encounter No Administered Medications Recorded Vital Signs Includes: Vital Signs from this encounter Vital Name 05/19/2024 09:53A Height (in) 67 Weight (lb) 180 Body Mass Index 28.2 Body Surface Area 1.9 Note: bna Last Documented: On 05/19/2024 9:54AM ; [facility] Results Includes: Results discussed during this encounter No Results Recorded For Specified Dates History of Present Illness Includes: History of Present Illness from this encounter FRANCISCO J Goode is a 58 year old male. 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 he also likes to play basketball and exercise pain has been getting worse stiffness worse in the left knee and has been using [id number] medications but these are not really providing relief enough to continue his activity level he would desire he is interested in further treatment for the left knee today Social History Description 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 Last Documented On 4 7:14AM ; [facility] Smoking Status Unknown Procedures and Surgical History Includes: Procedures from this encounter Procedures Code Diagnosis Performing Provider Service Location Service Date DRAIN/INJECT, JOINT/BURSA (LEFT) Unilateral primary osteoarthritis, left knee [facility] 05/19/2024 Last Documented On 4 9:45PM ; [facility] Injection, betamethasone acetate 6mg per cc and betamethason [id number] Unilateral primary osteoarthritis, left knee Giovani Dumont MD [facility] 05/19/2024 Last Documented On 4 9:45PM ; [facility] Medical History Includes: Medical History addressed during this encounter Description Last Updated History of depression 05/19/2024 Last Documented On 4 7:14AM ; [facility] History of diabetes mellitus 05/19/2024 Last Documented On 4 7:14AM ; [facility] History of Fractures 05/19/2024 Last Documented On 4 7:14AM ; [facility] History of History of Cancer 05/19/2024 Last Documented On 4 7:14AM ; [facility] History of Irregular Heartbeat 4 Last Documented On 4 7:14AM ; [facility] Recent immunization for flu 05/19/2024 Last Documented On 4 7:14AM ; [facility] Family History Includes: Family History addressed during this encounter Description Last Updated Maternal grandfather's history of diabet es mellitus 05/19/2024 Last Documented On 4 7:14AM ; [facility] Maternal grandfather's history of family history of cancer 05/19/2024 Last Documented On 4 7:14AM ; [facility] Maternal grandfather's history of Stroke / Seizures 05/19/2024 Last Documented On 4 7:14AM ; [facility] Maternal grandmother's history of diabet es mellitus 05/19/2024 Last Documented On 4 7:14AM ; [facility] Maternal grandmother's history of family history of cancer 05/19/2024 Last Documented On 4 7:14AM ; [facility] Maternal grandmother's history of Stroke / Seizures 05/19/2024 Last Documented On 4 7:14AM ; [facility] Maternal history of diabetes mellitus Last Documented On 4 7:14AM ; [facility] Maternal history of family history of ca ncer 05/19/2024 Last Documented On 4 7:14AM ; [facility] Maternal history of Stroke / Seizures Last Documented On 4 7:14AM ; [facility] Paternal history of diabetes mellitus Last Documented On 4 7:14AM ; [facility] Paternal history of family history of ca ncer 05/19/2024 Last Documented On 4 7:14AM ; [facility] Review of Systems Includes: Review of Systems from this encounter Systemic: No symptoms. Otolaryngeal: Hearing loss. Psychological: Anxiety and depression. Mental Status Includes: Mental Status from this encounter Description Anxiety Functional Status Includes: Functional Status from this encounter No Functional Status Recorded Physical Exam Includes: Physical Exam from this encounter Allergies Includes: Active Allergies No Known Allergies Encounters Encounter Provider Location Date Check-In Time Check-Out Time Diagnosis Physician Specified Giovani Dumont MD [facility] 05/19/20 24 9:48AM 10:06AM Overweight Insurance Includes: Active Insurance Policies Plan Name Member ID Group # Subscriber Relationship Effect becca Dates 1 - Passport [facility] [id number] Hi Goode Self Clinical Notes Includes: Clinical Notes from this encounter * Progress note Date Encounter Last Documented by 05/19/2024 Physician Specified Last documen christina on 05/20/2024; 7:14 AM, Giovani Dumont MD; [facility] Active Problems & Conditions - Joint Pain in the Left Knee Chief Complaint The Chief Complaint is: Left knee pain. Referred Here Referred by. History of Present Illness Hi Goode is a 58 year old male. 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 he also likes to play basketball and exercise pain has been getting worse stiffness worse in the left knee and has been using [id number] medications but these are not really providing relief enough to continue his activity level he would desire he is interested in further treatment for the left knee today Current Medication - Atorvastatin Calcium 40 MG Oral Tablet 90 days, 0 refills - Atorvastatin Calcium 40 MG Oral Tablet 90 days, 0 refills - glipiZIDE ER 10 MG Oral Tablet Extended Release 24 Hour 90 days, 0 refills - Lantus SoloStar 100 UNIT/ML Subcutaneous Solution Pen-injector 75 days, 0 refills - Lantus SoloStar 100 UNIT/ML Subcutaneous Solution Pen-injector 75 days, 0 refills - Lisinopril-hydroCHLOROthiazide 20-12.5 MG Oral Tablet 45 days, 0 refills - Lisinopril-hydroCHLOROthiazide 20-12.5 MG Oral Tablet 45 days, 0 refills - NovoLOG FlexPen ReliOn 100 UNIT/ML Subcutaneous Solution Pen-injector 34 days, 0 refills - NovoLOG FlexPen ReliOn 100 UNIT/ML Subcutaneous Solution Pen-injector 34 days, 0 refills - OneTouch Delica Plus [id number] Miscellaneous 50 days, 0 refills - OneTouch Verio Flex System w/Device Kit w/Device 365 days, 0 refills - Polyethylene Glycol 3350 17 GM/SCOOP Oral Powder 30 days, 0 refills Past Medical/Surgical History Reported: History of Fractures. Immunization History: Recent immunization for flu. Diagnoses: History of Cancer Irregular Heartbeat. Diabetes mellitus. 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 Allergies - No Known Allergies Family History Paternal: Cancer Diabetes mellitus Maternal: Cancer Stroke / Seizures Diabetes mellitus Maternal grandfather's: Cancer Stroke / Seizures Diabetes mellitus Maternal grandmother's: Cancer Stroke / Seizures Diabetes mellitus Review Of Systems Systemic: No symptoms. Otolaryngeal: Hearing loss. Psychological: Anxiety and depression. Physical Findings - Vitals taken 05/19/2024 09:53 am bna Height 67 in 60 - 80 Weight 180 lbs 125 - 225 Body Mass Index 28.2 kg/m2 Body Surface Area 1.9 m2 Left knee shows mild valgus deformity with 10 degree flexion contracture flexion is 125 with good stability varus valgus anterior drawer testing trace effusion tenderness over the lateral joint line primarily mild crepitation of the patellofemoral joint as well Antalgic gait is present due to left knee pain Tests Patient brings an MRI for review shows advanced degenerative changes about the lateral compartment grade 3 and 4 with patellofemoral advanced changes relative sparing of the medial compartment degenerative meniscus tears noted about the lateral meniscus and ACL deficiency also noted left knee Assessment - Overweight Advanced osteoarthritis history of previous ACL tear left knee Counseling/Education - Tobacco non-user - Use of tobacco assessment performed - Lose weight Plan We discussed treatment patient we would like to try a steroid injection need to be careful about his blood sugar and we will check the carefully take extra medication if needed he would be a good candidate for Orthovisc or LAGUERRE injection we are going to obtain a pre authorization for this as well any understands that he likely we will need knee replacement in the future he is only 58 now but we can give him a couple of years of relief with nonsurgical treatment that would be great but not guaranteed he understands that these treatments are 100% predictable by think about 50% chance we would give him some relief for a period of time Risks and benefits of the injection were outlined to the patient. They wish to proceed. The left knee was prepped with alcohol. I injected 1 cc of Celestone and 4 cc of 1% lidocaine into the joint. He tolerated this well. The needle was withdrawn and a Band-Aid was placed inside of the injection.
--- OUTSIDE RECORDS SUMMARY | 2024-06-30 16:33 | XMS_ITS | Continuity of Care Document ---
Author Organization [facility] Phone Care Team Providers Care Railway Signalling Engineer Name Role Phone DECLINED, PCP Primary Care Unavailable CHAN ALLEN Unavailable Unavailable CHAN ALLEN Primary Attending Unavailabl e CHAN ALLEN Admitting Unavailable ALLERGIES AND ADVERSE REACTIONS ALLERGIES AND ADVERSE REACTIONS Code System Allergy Substance Adverse Reaction Date Reaction (Severity) Comment Status Reported By Updated By 2670 RXNorm CODEINE Rash (Severe) active TY [id number] on April 11, 2023 3:17:34 PM [facility] RESULTS Patient: JAMISON Contreras Date of : 1965 6 LABORATORY RESULTS Information is not available LABORATORY NARRATIVE RESULTS Information is not available RADIOLOGY RESULTS ORDER 100: MRI EXTREM LWR ANTHONY INT LT WO (LOINC: 13323-9) ORDER DATE: May 01, 2024 11:52:00 AM [facility] PERFORMING LAB: [address] [id number] Final Result Date: April 12:55:[address] [place] [address] Name: CHINA SWIFT Exam Date: 05/01/2024 : 1965 Age 58 years Gender: M Physician: CHAN ALLEN Facility: [facility] Facility HSV: Outpatient Exam: MRI EXTREM LWR JOINT LT WO MR LOWER EXTREMITY JOINT WITHOUT IV CONTRAST LEFT: 05/01/2024 7:55 AM CDT HISTORY: Pain. COMPARISON: None. TECHNIQUE: Axial, sagittal, and coronal images of the left knee were performed without contrast. FINDINGS: MENISCI: Advanced truncation and deformity of the body of the lateral meniscus. Less prominent truncation of the anterior posterior horns. Mild degenerative truncation of the medial meniscus without definitive tear. ACL: No intact fibers identified. PCL: Intact. MCL: Intact. LCL: Intact. EXTENSOR MECHANISM: Intact. ARTICULAR CARTILAGE: There complete erosion of the articular cartilage of much of the lateral knee, less prominent changes involving the medial knee and trochlea. OSSEOUS STRUCTURES: Mild subarticular degenerative changes involving the lateral knee and midline trochlea. JOINT: A small joint effusion is noted. Loose bodies involving the posterior lateral joint line largest measuring 1.4 cm. Few loose bodies involving the anterior lateral joint line as well, largest measuring 1 cm. SOFT TISSUES: A small popliteal cyst is seen in the semimembranosus/gastrocnemius bursa. There are loose bodies within the Lynch's cyst, largest measuring 1 cm. IMPRESSION: 1. Advanced degenerative changes involving the lateral knee and less prominent changes involving the medial knee and trochlea. 2. Advanced truncation and deformity of the body of the lateral meniscus. Less prominent truncation of the anterior and posterior horns. No defined tear. 3. Chronic ACL tear. 4. Joint effusion and loose bodies. 5. Lynch's cyst. Electronically signed by: August Daniels MD 05/03/2024 02:08 PM EDT Dictated By: August Daniels Transcribed By: Transcribed On: 05/01/2024 8:55 AM Electronically signed by: August Daniels 05/01/2024 Thank you for referring CHINA SWIFT to [facility]. Legally authenticated by CHARLENE ORDONEZ MD 2024-05-01 08:55:00 PATHOLOGY NARRATIVE RESULTS Information is not available MICROBIOLOGY RESULTS No Micro Labs/Results Exist for Patient BLOOD ADMIN RESULTS Information is not available MEDICATIONS HOME MEDICATIONS Status RXNORM NDC Medication Dose Route Frequency Dates Comments Reported By Updated By Drug Treatment Unknown DISCHARGE MEDICATIONS Status RXNORM NDC Medication Dose Route Frequency Dates Comments Physician Updated By No Discharge Medication Info rmation Available INPATIENT MEDICATIONS Status RXNORM NDC Medication Dose Route Frequency Rat e Quantity Dates Comments Physician Updated By No Inpatient Medication Info rmation Available SOCIAL HISTORY SOCIAL HISTORY SNOMED-CT Social History Element Description Effective Dates Offered Cessation Comment UpdatedBy [id number] Historical Tobacco smoking status Never Smoked [id number] on April 10, 2023 6:38:19 PM [facility] SOCIAL HISTORY - Gender Sex: Male SOCIAL HISTORY - Status : status i nformation is not available Intention in Next Year: intention information is not available SOCIAL HISTORY - Sexual Behavior Sexual Orientation Gender Identity SNOMED-CT Description SNO MED -CT Description Activity Level No of Partners Partner Type UpdatedBy Information is not available HEALTH CONCERNS Problems Concern Status Health Concern problem infor mation not available. Smoking Status Status Years Used Consumed packs p er day Health Concern smoking histo ry information not available. Family History Concern Status Health Concern family histor y information not available. ENCOUNTERS ENCOUNTER INFORMATION Reason for Visit Not Specified Admission May 01, 2024 11:38:[address] [address] Discharge May 01, 2024 11:38:00 AM [facility] DISCHARGED TO HOME OR SELF CARE ENCOUNTER DIAGNOSES Notes information is not lois ilable. Code System Diagnosis Onset Date Diagnosis information is not available. ABSTRACT DIAGNOSES Code System Diagnosis Updated By M25.562 ICD10 PAIN IN LEFT KNEE [id number] on May 05, 2024 6:31:20 AM [facility] S83.512A ICD10 SPRAIN OF ANTERI OR CRUCIATE LIGAMENT OF LEFT KNEE, INITIAL ENCOUNTER [id number] on May 05, 2024 6:31:20 AM [facility] M17.12 ICD10 UNILATERAL PRIMA RY OSTEOARTHRITIS, LEFT KNEE [id number] on May 05, 2024 6:31:20 AM [facility] M21.962 ICD10 UNSPECIFIED ACQU IRED DEFORMITY OF LEFT LOWER LEG [id number] on May 05, 2024 6:31:20 AM [facility] M25.462 ICD10 EFFUSION, LEFT KNEE [id number] on May 05, 2024 6:31:20 AM [facility] M71.22 ICD10 SYNOVIAL CYST OF POPLITEAL SPACE [LYNCH], LEFT KNEE [id number] on May 05, 2024 6:31:20 AM [facility] M25.562 ICD10 PAIN IN LEFT KNEE [id number] on May 05, 2024 6:31:20 AM [facility] X58.XXXA ICD10 EXPOSURE TO OTHE R SPECIFIED FACTORS, INITIAL ENCOUNTER [id number] on May 05, 2024 6:31:20 AM [facility] CARE TEAM Care Railway Signalling Engineer Role PCP DECLINED Primary Care CHAN ALLEN Referring CHAN ALLEN Primary Attending CHAN ALLEN Admitting CARE TEAM CARE regional account manager Role on Team Status Start Date End Date Update d By DECLINED PCP PCP normal April 28, 2024 6:01:37 PM UTC May 01, 2024 11:38:00 AM UTC [id number] on April 28, 2024 6:01:37 PM UTC ALEJANDRO CHAN S Referring normal April 6:01:37 PM UTC May 01, 2024 11:38:00 AM UTC [id number] on April 28, 2024 6:01:37 PM UTC ALEJANDRO CHAN S Attending normal April 6:01:37 PM UTC May 01, 2024 11:38:00 AM UTC [id number] on April 28, 2024 6:01:37 PM UTC ALEJANDRO CHAN S Admitting normal April 6:01:37 PM UTC May 01, 2024 11:38:00 AM UTC [id number] on April 28, 2024 6:01:37 PM UTC
--- OUTSIDE RECORDS SUMMARY | 2024-06-30 16:33 | XMS_ITS ---
Care Plan - [facility], [facility] Created on: June 30, 2024 Hi Goode : 1965 Sex: Male Author Organization [facility] Address [address] [place] [address] Phone Care Team Providers Care Manufacturing Engineer Machining Name Role Phone Giovani Dumont MD Unavailable [phone]
--- OUTSIDE RECORDS SUMMARY | 2024-06-30 16:33 | XMS_ITS | Continuity of Care Document ---
Author Organization [facility] Phone Care Team Providers Care Brand Attendant Name Role Phone DECLINED, PCP Primary Care Unavailable CHAN ALLEN S Unavailable Unavailable WOOLDANIA CASTLEITY S Primary Attending Unavailabl e WOOLCHAN CASTLE S Admitting Unavailable ALLERGIES AND ADVERSE REACTIONS ALLERGIES AND ADVERSE REACTIONS Code System Allergy Substance Adverse Reaction Date Reaction (Severity) Comment Status Reported By Updated By [id number] RXNorm CODEINE Rash (Severe) active TY [id number] on April 11, 2023 3:17:34 PM [facility] T[facility]MENT [facility] DISCHARGE MEDICATIONS Status RXNORM Medication Dose Route Frequency Dates Comments U pdated By Patient discharge medication information is not available. PATIENT OPEN ORDERS Code System Description Frequency Occurrences Priority [place] [id number] [facility] Lower extremity joint - left MRI WO contrast ONE TIME 0 Routine May 01, 2024 11:50:0 0 AM [facility] ALEJANDRO NAJERAITY S [id number] on May 01, 2024 11:52:00 AM [facility] SCHEDULED PROCEDURES Code System Description Status Scheduled Date Upd ated By Patient scheduled procedure information is not available. MEDICATIONS HOME MEDICATIONS Status RXNORM NDC Medication [...] Description Effective Dates Offered Cessation Comment UpdatedBy [id number] Historical Tobacco smoking status Never Smoked [id number] on April 10, 2023 6:38:19 PM [facility] SOCIAL HISTORY - Gender Sex: [...] Specified Ad[facility] May [facility] 11[facility]38[facility] [address] Discharge May 01, 2024 11:38:00 AM [facility] DISCHARGED TO HOME OR SELF CARE ENCOUNTER DIAGNOSES Notes information is not lois ilable. Code System Diagnosis Onset Date Diagnosis information is not available. ABSTRACT DIAGNOSES Code System Diagnosis Updated By M25.562 ICD10 PAIN IN LEFT KNEE [id number] on April 28, 2024 6:01:36 PM [facility] CARE TEAM Care Brand Attendant Role PCP DECLINED Primary Care CHAN ALLEN Referring CHAN ALLEN Primary Attending CHAN ALLEN Admitting CARE TEAM CARE talend etl developer Role on Team Status Start Date End Date Update d By DECLINED PCP PCP normal April 28, 2024 6:01:37 PM [place] May 01, 2024 11:38:00 AM [place] [id number] on April 28, 2024 6:01:37 PM [place] ALEJANDRO CHAN S Referring normal April 6:01:37 PM [place] May 01, 2024 11:38:00 AM [place] [id number] on April 28, 2024 6:01:37 PM [facility] WOOLUMS CHAN S Attending normal April 6:01:37 PM [place] May 01, 2024 11:38:00 AM [place] [id number] on April 28, 2024 6:01:37 PM [facility] KIRKUMS CHAN S Admitting normal April 6:01:37 PM [place] May 01, 2024 11:38:00 AM [place] [id number] on April 28, 2024 6:01:37 PM [place]
--- OUTSIDE RECORDS SUMMARY | 2024-06-30 16:33 | XMS_ITS ---
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 Instructions to patient Lose weight Last Documented On 4 9:54AM ; [facility] Assessments Includes: Assessments for all patient encounters Findings Encounter Date Overweight Physician Specified with Giovani Dumont MD 05/19/2024 Last Documented On 4 7:14AM ; [facility] Instructions Includes: Instructions for all patient encounters Instructions to patient Lose weight Last Documented On 4 9:54AM ; [facility] Medical Equipment - Implanted Devices Includes: Current and historical Devices No Medical Equipment Recorded Medications Includes: Current and historical Medications Current Medications (continue as prescribed) Polyethylene Glycol 3350 17 GM/SCOOP Oral Powder 05/10/2024 Provider: Henna Baldwin APRN Diagnosis: Last Documented On 4 9:52AM By Kayla Vasquez ; [facility] Atorvastatin Calcium 40 MG Oral Tablet 05/04/2024 Pr ovider: William Zarate APRN Diagnosis: Last Documented On 4 9:52AM By Kayla Vasquez ; [facility] Atorvastatin Calcium 40 MG Oral Tablet 05/04/2024 Pr ovider: William Zarate APRN Diagnosis: Last Documented On 4 9:52AM By Kayla Vasquez ; [facility] Lantus SoloStar 100 UNIT/ML Subcutaneous Solutio n Pen-injector 05/04/2024 Provider: Diagnosis: Last Documented On 4 9:52AM By Kayla Vasquez ; [facility] Lantus SoloStar 100 UNIT/ML Subcutaneous Solutio n Pen-injector 05/04/2024 Provider: Diagnosis: Last Documented On 4 9:52AM By Kayla Vasquez ; [facility] OneTouch Delica Plus [id number] Miscellaneous Provider: Diagnosis: Last Documented On 4 9:52AM By Kayla Vasquez ; [facility] OneTouch Verio Flex System w/Device Kit 04/16/2024 Emi macder: Diagnosis: Last Documented On 4 9:52AM By Kayla Vasquez ; [facility] Lisinopril-hydroCHLOROthiazide 20-12.5 MG Oral Tablet 04/10/2024 Provider: Diagnosis: Last Documented On 4 9:52AM By Kayla Vasquez ; [facility] Lisinopril-hydroCHLOROthiazide 20-12.5 MG Oral Tablet 04/10/2024 Provider: Diagnosis: Last Documented On 4 9:52AM By Kayla Vasquez ; [facility] glipiZIDE ER 10 MG Oral Tablet Extended Release 24 Cherelle r 03/09/2024 Provider: Diagnosis: Last Documented On 4 9:52AM By Kayla Vasquez ; [facility] NovoLOG FlexPen ReliOn 100 U NIT/ML Subcutaneous Solution Pen-injector 03/09/2024 Provider: Diagnosis: Last Documented On 4 9:52AM By Kayla Vasquez ; [facility] NovoLOG FlexPen ReliOn 100 U NIT/ML Subcutaneous Solution Pen-injector 03/09/2024 Provider: Diagnosis: Last Documented On 4 9:52AM By Kayla Vasquez ; [facility] Medications Administered Includes: Administered Medications in patient's chart No Administered Medications Recorded Vital Signs Includes: Vital Signs from 06/30/2023 through 06/30/2024 Vital Name 05/19/2024 09:53A Height (in) 67 Weight (lb) 180 Body Mass Index 28.2 Body Surface Area 1.9 Note: bna Last Documented: On 05/19/2024 9:54AM ; [facility] Results Includes: Results from 06/30/2023 through 06/30/2024 No Results Recorded For Specified Dates History of Present Illness History of Present Illness not supported for this document type No History of Present Illness Recorded 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 Last Documented On 4 7:14AM ; [facility] Smoking Status Unknown Procedures and Surgical History Includes: Procedures from 06/30/2023 through 06/30/2024 Procedures Code Diagnosis Performing Provider Service Location Service Date DRAIN/INJECT, JOINT/BURSA (LEFT) Unilateral primary oste[facility], [facility] Last Documented On 4 9:45PM ; [facility] Injection, betamethasone acetate 6mg per cc and betamethason [id number] Unilateral primary osteoarthritis, left [facility] Last Documented On 4 9:45PM ; [facility] Medical History Includes: Medical History in patient's chart Description Last Updated History of depression 05/19/2024 Last Documented On 4 7:14AM ; [facility] History of diabetes mellitus 05/19/2024 Last Documented On 4 7:14AM ; [facility] History of Fractures 05/19/2024 Last Documented On 4 7:14AM ; [facility] History of History of Cancer 05/19/2024 Last Documented On 4 7:14AM ; [facility] History of Irregular Heartbeat 4 Last Documented On 4 7:14AM ; [facility] Recent immunization for flu 05/19/2024 Last Documented On 4 7:14AM ; [facility] Family History Includes: Family History in patient's chart Description Last Updated Maternal grandfather's history of diabet es mellitus 05/19/2024 Last Documented On 4 7:14AM ; [facility] Maternal grandfather's history of family history of cancer 05/19/2024 Last Documented On 4 7:14AM ; [facility] Maternal grandfather's history of Stroke / Seizures 05/19/2024 Last Documented On 4 7:14AM ; [facility] Maternal grandmother's history of diabet es mellitus 05/19/2024 Last Documented On 4 7:14AM ; [facility] Maternal grandmother's history of family history of cancer 05/19/2024 Last Documented On 4 7:14AM ; [facility] Maternal grandmother's history of Stroke / Seizures 05/19/2024 Last Documented On 4 7:14AM ; [facility] Maternal history of diabetes mellitus Last Documented On 4 7:14AM ; [facility] Maternal history of family history of ca ncer 05/19/2024 Last Documented On 4 7:14AM ; [facility] Maternal history of Stroke / Seizures Last Documented On 4 7:14AM ; [facility] Paternal history of diabetes mellitus Last Documented On 4 7:14AM ; [facility] Paternal history of family history of ca ncer 05/19/2024 Last Documented On 4 7:14AM ; [facility] Review of Systems Review of Systems not supported for this document type No Review of Systems Recorded Mental Status Description Anxiety Functional Status No Functional Status Recorded Physical Exam Physical Exam not supported for this document type No Physical Exam Recorded Allergies Includes: Active, inactive, and resolved Allergies No Known Allergies Encounters Includes: Encounters from 06/30/2023 through 06/30/2024 Encounter Provider Location Date Check-In Time Check-Out Time Diagnosis Physician Specified Giovani Dumont MD [facility] 05/19/20 24 9:48AM 10:06AM Overweight Insurance Includes: Active Insurance Policies Plan Name Member ID Group # Subscriber Relationship Effect becca Dates 1 - [employer] [id number] [place] Self Clinical Notes Includes: Signed Clinical Notes starting from 08/30/2022 * Progress note Date Encounter Last Documented by 05/19/2024 Physician Specified Aakash juan manuelkathy vasquez on 05/20/2024; 7:14 AM, Giovani Dumont MD; [facility] Active Problems & Conditions - Joint Pain [...] the left knee and has been using [id number] medications but these are not really providing [...] days, 0 refills - OneTouch Delica Plus [id number] Miscellaneous 50 days, 0 refills - OneTouch Verio Flex System w/Device Kit w/Device 365 days, 0 refills - Polyethylene Glycol 3350 17 GM/SCOOP Oral Powder 30 days, 0 refills Past Medical/Surgical History Reported: History of Fractures. Immunization History: Recent immunization for flu. Diagnoses: History of Cancer Irregular Heartbeat. Diabetes mellitus. 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 Allergies - No Known Allergies Family History [...]
[2024-07-02 08:23] LABS: PSA, Free 1.34 ng/mL; Prostate Specific Ag 6.2 ng/mL (0.0-4.0)
== END 2024-06-30 23:59 | disposition home or self-care (01) ==
LOC: LAB 16:31
PROVIDERS: Physician Assistant Medical; PCP Family Medicine; Visit Provider Urology
DX: C60.1 Malignant neoplasm of glans penis (principal)
CPT/HCPCS: 36415; 84153; 84154

== ENCOUNTER 2024-11-15 04:55 | Emergency (ER) | payer MEDICAID, SELFPAY ==
[2024-11-15 04:57] VITALS: BP 133/80; PULSE 70; RESP 14; TEMP 36.6; O2SAT 95; BMI 29.0
--- NOTE | 2024-11-15 05:02 | HMH.EDGENADL ---
Discharge Plan Disposition Patient Disposition: Home, Self-Care Prescriptions Prescriptions: No Action bupropion HCl [Wellbutrin SR] 150 mg tablet sustained-release 12 hr 150 mg PO DAILY Qty: 30 2RF insulin glargine [Lantus Solostar U-100 Insulin] 100 unit/mL (3 mL) insulin pen 20 unit SQ DAILY Qty: 15 2RF insulin aspart U-100 [Novolog FlexPen U-100 Insulin] 100 unit/mL (3 mL) insulin pen 2 - 15 unit SQ ACHS Qty: 15 5RF Rx Instructions: Please check your blood sugar 30 minutes prior to eating 3 times a day. Please also check blood sugar before going to sleep. If blood sugar 151 to 200 mg/dL administer 2 units subcu short acting insulin If blood sugar 201 to 250 mg/dL administer 5 units subcu short acting insulin If blood sugar 251 to 300 mg/dL administer 8 units subcu short acting insulin If blood sugar 301 to 350 mg/dL administer 10 units subcu short acting insulin If blood sugar 351 to 400 mg/dL administer 12 units subcu short acting insulin If blood sugar over 400 mg/dL administer 12 units subcu short acting insulin and call doctor for further instructions. glipizide 10 mg tablet extended release 24hr 10 mg PO DAILY Qty: 90 3RF lisinopril-hydrochlorothiazide 20-12.5 mg tablet 2 tab PO DAILY Qty: 90 2RF (DME) Accu-Chek Guide test strips Strip See Rx Instructions .ROUTE .MEDSUPPLY Qty: 50 2RF Rx Instructions: Test blood sugar 2x a day. (DME) lancets [Accu-Chek Softclix Lancets] Misc See Rx Instructions .ROUTE .MEDSUPPLY Qty: 100 2RF Rx Instructions: As directed (DME) blood-glucose meter [Accu-Chek Guide Glucose Meter] Misc See Rx Instructions .ROUTE .MEDSUPPLY Qty: 1 0RF Rx Instructions: As directed atorvastatin 40 mg tablet 40 mg PO HS Qty: 90 1RF Referrals Follow up/Referrals: Iraida Reese APRN [Primary Care Provider] - See instructions Activity Restrictions/Add. Instructions Additional Instructions/Restrictions: Recommend following up with your urologist as discussed. If you develop signs of urinary retention, recommend repeat evaluation. We will call if your urine is positive for infection on culture. Clinical Impressions Clinical Impression: Hematuria, History of bladder cancer, History of prostate surgery Instructions Patient Instructions: DI for Urinary Tract Infection (UTI), DI for Urinary Tract Infection in Children Print Language Print Language: German Discharge ED Provider: Aba Garcia General Adult HPI General Chief complaint: Urogenital-Male Stated complaint: blood in urine Time Seen by Provider: 11/15/24 04:55 History of Present Illness HPI narrative: 59-year-old male with history of bladder cancer status postsurgical resection and multiple TURPs 2 years ago presents for hematuria. He has been noticing it for a few days on and off. He reports some spasmy pain in his bladder. He reports intermittently passing clots. He denies any urinary retention. Denies any fever at home. Denies any flank pain or other systemic symptoms. No history of urinary infections. Related Data Previous Rx's ?Medication ?Instructions ?Recorded glipizide 10 mg tablet, extended 10 mg PO DAILY #90 tabs 03/09/24 release 24 hr insulin aspart U-100 100 unit/mL 2 - 15 unit (0.02 - 0.15 mL) SQ 03/09/24 (3 mL) subcutaneous pen (Novolog ACHS hyperglycemia #15 mL FlexPen U-100 Insulin aspart) blood sugar diagnostic (Accu-Chek #50 ea 04/16/24 Guide test strips) blood-glucose meter (Accu-Chek #1 ea 04/16/24 Guide Glucose Meter) lancets (Accu-Chek Softclix #100 ea 04/16/24 Lancets) lisinopril 20 2 tab PO DAILY High blood pressure 08/04/24 mg-hydrochlorothiazide 12.5 mg #90 tabs tablet atorvastatin 40 mg tablet 40 mg PO HS #90 tabs 08/21/24 bupropion HCl 150 mg tablet,12 hr 150 mg PO DAILY #30 ea 09/04/24 sustained-release (Wellbutrin SR) insulin glargine 100 unit/mL (3 20 unit (0.2 mL) SQ DAILY Diabetes 09/04/24 mL) subcutaneous pen (Lantus #15 mL Solostar U-100 Insulin) Allergies Allergy/AdvReac Type Severity Reaction Status Date / Time codeine AdvReac Intermediate Rash Verified 09/04/24 10:20 PFSH [facility] Disclaimer: The information contained in this section may have been updated after the patient was seen, as this information can be updated by other users. Medical History Encounter for screening colonoscopy Viral upper respiratory tract infection Broken tooth Fonseca catheter in place Bladder cancer Bladder CA in situ Bladder cancer Constipation High cholesterol HTN (hypertension) Diabetes Constipation Surgical History History of prostate surgery Family History Grandmother Diabetes Family history of myocardial infarction Mother Diabetes Family history of myocardial infarction Father Diabetes Grandfather Diabetes Family history of myocardial infarction Social History Smoking Status: Never smoker alcohol intake: former substance use type: denies use current occupational status: employed Travel in the last 8 weeks: None caffeine: Yes Have you lived/traveled outside [place] in past 30 days?: No Contact w/someone who lives/traveled outside [place] past 30 days?: No Exposure to someone with infectious disease in past 14 days?: No Do you have a fever (greater than 100.4 F or 38 C)?: No Have you tested positive for COVID-19: No Exposed to someone with COVID-19 in past 14 days?: No Do you have a sore throat?: No Do you have a cough?: No Do you have any weakness?: No Do you have any diarrhea?: No Are you experiencing any unusual bleeding?: No Do you have any muscle aches/pain?: No Do you have any abdominal pain?: No Are you experiencing loss of taste or smell?: No Other Medical History Have you received the Flu Vaccine for this season: No Have you received the Pneumonia Vaccine: No ROS Obtained: Yes All systems reviewed & no additional complaints except as documented Physical Exam General General appearance: alert and in no apparent distress Head Head exam: atraumatic and normocephalic Eye Eye exam: Present normal appearance, PERRL and EOMI ENT ENT exam: Present normal oropharynx and normal external ear exam Neck Neck exam: Present normal inspection and full ROM Chest Chest inspection: Present normal inspection and symmetric chest wall rise; Absent tenderness Respiratory Respiratory exam: Present normal lung sounds bilaterally; Absent respiratory distress Cardiovascular Cardiovascular exam: Present regular rate and normal rhythm Abdominal Exam Abdominal exam: Present soft; Absent distention, tenderness or guarding Extremities Exam Extremities exam: Present normal inspection; Absent edema or joint swelling Back Exam Back exam: Present normal inspection; Absent tenderness Neurological Exam Neurological exam: Present alert and oriented X3; Absent motor sensory deficit Psychiatric Psychiatric exam: Present normal affect and normal mood Skin Skin exam: Present warm, dry and normal color Lymphatic Lymphatic Findings: no adenopathy Medical Decision Making Medical Records Medical records reviewed: Yes I reviewed the patient's medical records. Screening: Per USPSTF and CDC recommendations, given the prevalence of disease in our region, it is our hospital?s policy to screen for HIV and viral Hepatitis for all patients aged 18 and over and those with ongoing risk factors. Deuardo Inquiry Pt receiving controlled substance: No Eduardo was queried for this patient: No Vital Signs: 11/15/24 04:57 Temperature 98 F Temperature Source Oral Pulse Rate [Radial] 70 Respiratory Rate 14 Blood Pressure [Right Arm] 133/80 Blood Pressure Mean [Right Arm] 97 02 Sat by Pulse Oximetry 95 Oxygen Delivery Method Room Air Lab Data Lab results reviewed: Yes I reviewed the patient's lab results. Lab Results 11/15/24 05:08: Urine Color Other, Urine Appearance Sl cloudy, Urine pH 6.0, Ur Specific [place] 1.025, Urine Protein Trace, Urine Glucose (UA) 3+, Urine Ketones Negative, Urine Blood 3+ A, Urine Nitrate Negative, Urine Bilirubin Negative, Urine Urobilinogen 0.2, Ur Leukocyte Esterase Negative, Urine RBC 20-50, Urine WBC None, Ur Squamous Epith Cells Occasional, Urine Bacteria Trace Orders (Tests/Meds): ORDERS Category Date Time Status UA [Urinalysis and Microscopic] Stat Lab 11/15/24 05:08 Completed Medical Decision Narrative: 59-year-old male with history of bladder cancer status post surgery couple years ago presents for gross hematuria. History was obtained via interactive discussion with patient, chart review. On arrival, patient is [afebrile, hemodynamically stable, satting appropriately, alert, oriented x4, GCS 15], moving all extremities spontaneously. Full physical exam performed and significant for no flank tenderness, no significant pelvic tenderness or fullness Differential includes but is not limited to hemorrhagic cystitis, hematuria secondary to recurrent bladder cancer, kidney stone, urinary retention coagulopathy. Workup initiated including urinalysis. On re-evaluation, patient [remains afebrile, HD stable.] Laboratory workup independently interpreted by me and significant for 20-50 RBCs in the urine, and trace bacteria. No WBCs, negative nitrite. On my independent rotation does not appear consistent with acute urinary tract infection. Blood work and CT imaging was considered, but deemed unnecessary due to no flank pain or systemic symptoms. Given patient history, exam and workup, patient's presentation most likely represents gross hematuria, may be secondary to recurrent bladder cancer. Does not appear consistent with acute infection or urinary retention at this time. Interactive discussion was had with patient regarding his presentation. He he is going to call and follow-up with his urologist as soon as possible. Patient discharged in stable condition. We will call if his culture is positive. Procedures Risk/Benefits of Procedure(s) Were Explained: Yes Critical Care Critical Care Time Critical Care Time: No
[2024-11-15 05:08] VITALS: RESP 14; O2SAT 98
[2024-11-15 05:17] LABS: Microscopic, Urine URINE MICROSCOPIC (MICROSCOPIC)
[2024-11-15 05:24] LABS: Appearance,Urine SL CLOUDY (Clear); Bilirubin,Urine Negative (Negative); Blood, Urine 3+ (Negative); Color,Urine OTHER (Yellow); Glucose,Urine (UA) 3+ (Negative); Ketones,Urine Negative (Negative); Leukocyte Esterase,Urine Negative (Negative); Nitrate,Urine Negative (Negative); Protein,Urine TRACE (Negative); Specific Gravity, Urine 1.025 (1.005-1.030); Urobilinogen,Urine 0.2 EU/dl (0.2)
[2024-11-15 05:48] LABS: Bacteria,Urine Trace /lpf; RBC,Urine 20-50 #/hpf (0-3); Squamous Epithelial Cell,Urine Occasional #/hpf (0-5)
--- NOTE | 2024-11-15 05:57 | PC.NURSE ---
provider at the bedside.
[2024-11-15 06:02] VITALS: BP 111/62; PULSE 78; RESP 16; TEMP 36.6; O2SAT 98
== END 2024-11-15 06:04 | disposition home or self-care (01) ==
PROVIDERS: Emergency Provider Emergency Medicine; PCP Family Medicine
DX: R31.0 Gross hematuria (principal); R31.9 Hematuria, unspecified; N32.89 Other specified disorders of bladder; Z98.890 Other specified postprocedural states; Z85.51 Personal history of malignant neoplasm of bladder
CPT/HCPCS: 81001; 99283

== ENCOUNTER 2024-12-14 15:11 | Outpatient (CLI) | payer MEDICAID, SELFPAY ==
[2024-12-14 18:53] LABS: Creatinine,Urine Random 74 mg/dL (Not Estab.)
[2024-12-14 19:08] LABS: Microalbumin/Creatinine Ratio 150.1
[2024-12-14 19:09] LABS: Hemoglobin A1C 13.1 % (4.0-6.0)
[2024-12-14 19:10] LABS: Basophils # 0.1 K/mm3 (0-0.2); Basophils % 0.8 % (0.1-2.0); Eosinophils # 0.2 K/mm3 (0.0-0.4); Eosinophils % 2.8 % (0.1-12.0); Hematocrit 46.5 % (42.0-52.0); Hemoglobin 16.3 g/dL (14.1-18.0); Lymphocytes # 1.4 K/mm3 (0.7-4.5); Lymphocytes % 22.6 % (10-50); Mean Corpuscular HGB Conc 35.1 g/dL (31.8-35.4); Mean Corpuscular Hemoglobin 29.5 pg (27.0-31.2); Mean Corpuscular Volume 84.2 fl (80-94); Mean Platelet Volume 13.5 fl (7.4-10.4); Monocytes # 0.7 K/mm3 (0.1-1.0); Monocytes % 11.3 % (1.7-9.3); Neutrophils # 3.8 K/mm3 (1.8-7.8); Neutrophils % 62.5 % (37.0-80.0); Platelet Count 155 K/mm3 (142-424); Red Blood Count 5.52 M/mm3 (4.60-6.20); Red Cell Distribution Width 11.5 % (11.5-17.5); White Blood Count 6.1 K/mm3 (4.8-10.8)
[2024-12-14 20:56] LABS: Alanine Aminotransferase 74 U/L (12-78); Albumin Level 4.4 g/dl (3.5-5.0); Albumin/Globulin Ratio 1.6 (1.1-1.8); Alkaline Phosphatase 119 U/L (38-126); Anion Gap 17.2 mEq/L (5-15); Aspartate Amino Transferase 44 U/L (17-59); Bilirubin,Total 0.5 mg/dl (0.2-1.3); Blood Urea Nitrogen 30 mg/dl (9-20); Calcium 10.8 mg/dl (8.4-10.2); Carbon Dioxide 25 mmol/L (22.0-30.0); Chloride 97 mmol/L (98-107); Chol/HDL Ratio 3.2 (1-3.5); Cholesterol 156 mg/dl (140-200); Estimated Glomerular Filt Rate 77 ml/min (>60); GFR (African American) 93 ML/MIN (>60); Globulin 2.7 g/dL (1.3-3.2); Glucose 312 mg/dl (74-100); HDL Cholesterol 49 mg/dl (40-60); Potassium 4.2 mmoL/L (3.5-5.1); Sodium 135 mmol/L (136-145); Total Protein,Serum 7.1 g/dl (6.3-8.2); Triglycerides 296 mg/dl (30-150); VLDL Cholesterol 59 mg/dL (0-40)
[2024-12-14 21:08] LABS: Direct LDL Cholesterol 66.18 mg/dL (100-129)
[2024-12-14 21:12] LABS: 25-OH Vitamin D, Total 29.5 ng/mL (30-100)
[2024-12-14 21:29] LABS: Prostate Specific Ag Screen 5.7 ng/ml (0.0-4.0); Thyroid Stimulating Hormone 1.77 uIU/mL (0.465-4.68)
== END 2024-12-14 23:59 | disposition home or self-care (01) ==
LOC: LAB.DROPOF 12-15 13:33
PROVIDERS: PCP Family Medicine; Visit Provider Family Medicine
DX: E11.65 Type 2 diabetes mellitus with hyperglycemia (principal); I10 Essential (primary) hypertension; E78.00 Pure hypercholesterolemia, unspecified; Z98.890 Other specified postprocedural states
CPT/HCPCS: 80053; 80061; 82043; 82306; 82570; 83036; 84443; 85025; G0103

== ENCOUNTER 2025-01-29 13:36 | Outpatient (CLI) | payer MEDICAID, SELFPAY ==
[2025-01-29 19:07] LABS: Alanine Aminotransferase 56 U/L (12-78); Albumin Level 4.1 g/dl (3.5-5.0); Albumin/Globulin Ratio 1.9 (1.1-1.8); Alkaline Phosphatase 97 U/L (38-126); Anion Gap 9.8 mEq/L (5-15); Aspartate Amino Transferase 30 U/L (17-59); Bilirubin,Total 0.5 mg/dl (0.2-1.3); Blood Urea Nitrogen 27 mg/dl (9-20); Calcium 9.9 mg/dl (8.4-10.2); Carbon Dioxide 26 mmol/L (22.0-30.0); Chloride 102 mmol/L (98-107); Estimated Glomerular Filt Rate 77 ml/min (>60); GFR (African American) 93 ML/MIN (>60); Globulin 2.2 g/dL (1.3-3.2); Glucose 189 mg/dl (74-100); Potassium 3.8 mmoL/L (3.5-5.1); Sodium 134 mmol/L (136-145); Total Protein,Serum 6.3 g/dl (6.3-8.2)
--- OUTSIDE RECORDS SUMMARY | 2025-02-01 13:38 | XMS_ITS | Continuity of Care Document ---
Author Organization [facility] Address [address] [place] [address] Care Team Providers Care Computer Forwarding System Markup Clerk Name Role Phone AVERY MAYNARD Primary Care Provider [phone] Assessment No assessment recorded. Plan of Treatment Reminders Order Date Submit Date Provider Last Modified By Organization Details Last Modified Time Details Appointments PROC 025 09:45AM Uche Velásquez Jr, MD Not available Not available Not available Lab None record ed. Referral None record ed. Procedures None record ed. Surgeries None record ed. Imaging None record ed. Medication Orders None record ed. Patient TargetsNo targets recorded. Patient InstructionsNo instructions recorded. Reason for Referral None Reported. Problems Name Problem SNOMED Code Status Onset Date Resolution Date Notes Provider Name and Address Organization Details Recorded Time Hypertensive disorder 03849624 Active 2022 Not Available [facility] 3 14:10:26 Diabetes mellitus 58840334 Active 2022 Not Available [facility] 3 14:10:26 Hyperglycemia 89311267 Active 2022 Not Available [facility] 3 14:10:26 Arthritis 5434976 Active 2022 Not Available [facility] 3 14:10:26 Benign prostatic hyperplasia with outflow obstruction 251162331 [facility] [place] 3 09:53:36 Lesion of urinary bladder 637462798 Active Not Available [facility] 3 14:10:26 Problem Notes None recorded. Procedures Surgical History Date Name Laterality Status Provider Name and Address Organization Details Recorded Time 5 Bladder Irrigation completed Uche Velásquez Jr, MD [address], [address], [place], [address], [place] [facility] [place] & [place] 11/20/2024 10:15:28 5 Cystoscopy-Male completed Uche Velásquez Jr, MD [address] [place] [address] Drive, [address], [place], [address], [place] [facility] [place] 11/17/2024 09:44:31 4 Cystoscopy-Male completed Uche Velásquez Jr, MD [address] [place] [address] Drive, [address], [place], [address], [place] [facility] [place] & [place] 07/08/2024 12:17:31 4 Cystoscopy-Male completed Uche Velásquez Jr, MD [address] [place] [address] Drive, [address], [place], [address], [place] [facility] [place] 12/25/2023 13:37:32 4 Cystoscopy-Male completed Uche Velásquez Jr, MD [address] [place] [address] Drive, [address], [place], [address], [place] [facility] & [place] 11/14/2023 18:57:36 3 Cystoscopy-Male completed Uche Velásquez Jr, MD [address] [place] [address] Drive, [address], [place], [address], [place] [facility] & [place] 07/05/2023 15:30:28 3 Cystoscopy-Male completed Uche Velásquez Jr, MD [address] [place] [address] Drive, [address], [place], [address], [place] [facility] [place] & [place] 03/15/2023 12:36:52 3 Cystoscopy-Male completed Uche Velásquez Jr, MD [address] [place] [address] Drive, [address], [place], [address], [place] [facility] & [place] 02/07/2023 16:55:17 3 Cancer Surgery completed April Wylie [place] [facility] & [place] 2023 11:41:08 3 Prostate Surgery completed April Wylie [facility] & [place] 2023 11:41:08 3 [facility]ck [facility] [place] 2023 11:41:08 Imaging Results None recorded. Procedure Notes None recorded. Medical Equipment None Reported. Allergies Allergen ID Allergen Name Allergen Category Reaction Reaction Severity Criticality Documentation Date Start Date Code Code System Note Provider Name and Address Organization Details Recorded Time 64863 codeine medicatio n Not available Not available Not available 02/06/2023 2670 RxNorm Other react ions and sever ities : 'Adve rse react ion to subst ance' . Marti Head evelio [facility] & [place] 3 09:53:26 Medications Name Sig Start Date Stop Date Status Note LastModified by Organization Details LastModified Time acetaminoph en 500mg tab TAKE 1 TABLET BY MOUTH EVERY 6 HOURS FOR AT LEAST 3 DAYS active Not Available Not Available No t Available amoxicillin 500 mg capsule TAKE 1 CAPSULE BY MOUTH THREE TIMES DAILY FOR 10 DAYS active Not Available Not Available No t Available Flomax 0.4 mg capsule 0.4 mg by oral route. 04/22 completed Not Available Not Available Not Available cefazolin 1 gram solution for injection 1 g by injection route. 03/23 completed Not Available Not Available Not Available atorvastati n 40 mg tablet TAKE 1 TABLET BY MOUTH AT BEDTIME NIGHTLY active Not Available Not Available No t Available metformin 500 mg tablet 1000 mg by oral route. active Not Available Not Available No t Available Xylocaine-M PF 20 mg/mL (2 %) injection solution 5 mL by injection route. 02/15 completed Not Available Not Available Not Available bupropion HCl SR 150 mg tablet,12 hr sustained-r elease TAKE ONE TABLET BY MOUTH EVERY DAY active Not Available Not Available No t Available lisinopril 20 mg-hydrochl orothiazide 12.5 mg tablet TAKE TWO TABLETS BY MOUTH EVERY DAY FOR HIGH BLOOD PRESSURE active Not Available Not Available No t Available azithromyci n 250 mg tablet TAKE 2 TABLETS BY MOUTH ON DAY 1, AND THEN TAKE 1 TABLET BY MOUTH ONCE A DAY ON DAY 2 THROUGH DAY 5 active Not Available Not Available No t Available benzonatate 200 mg capsule TAKE 1 CAPSULE BY MOUTH THREE TIMES DAILY NEEDED FOR COUGH FOR 10 DAYS active Not Available Not Available No t Available hydrocodone 5 mg-acetamin ophen 325 mg tablet 1 tablet by oral route. 03/23 completed Not Available Not Available Not Available minocycline 100 mg capsule 1 capsule by oral route. 04/22 completed Not Available Not Available Not Available glipizide ER 10 mg tablet, extended release 24 hr TAKE 1 TABLET BY MOUTH ONCE DAILY active Not Available Not Available No t Available Diprivan 10 mg/mL intravenous emulsion 200 mg by intraven. route. 02/15 completed Not Available Not Available Not Available FreeStyle Lancets 28 gauge USE 1 LANCET TO CHECK GLUCOSE THREE TIMES DAILY active Not Available Not Available No t Available phenazopyri dine 200 mg tablet TAKE 1 TABLET BY MOUTH EVERY 8 HOURS NEEDED FOR PAIN 04/22 completed Not Available Not Available Not Available lisinopril 20 mg tablet 20 mg by oral route. 03/23 completed Not Available Not Available Not Available prednisone 20 mg tablet TAKE 1 TABLET BY MOUTH TWICE DAILY FOR 5 DAYS active Not Available Not Available No t Available sodium chloride 0.45 % intravenous solution 1000 mL by intraven. route. 03/23 completed Not Available Not Available Not Available ciprofloxac in 500 mg tablet 500 mg by oral route. 04/22 completed Not Available Not Available Not Available triamcinolo ne acetonide 0.1 % topical cream APPLY TOPICALLY TO THE AFFECTED AREA(S) THREE TIMES DAILY active Not Available Not Available No t Available ketorolac 30 mg/mL (1 mL) injection solution 30 mg by injection route. 02/15 completed Not Available Not Available Not Available hydralazine 20 mg/mL injection solution 10 mg by injection route. 02/16 completed Not Available Not Available Not Available oxycodone-a cetaminophe n 5 mg-325 mg tablet TAKE 1 TABLET BY MOUTH EVERY 8 HOURS NEEDED FOR 3 DAYS 04/22 completed Not Available Not Available Not Available alprazolam 0.5 mg tablet 0.5 mg by oral route. 02/16 completed Not Available Not Available Not Available potassium chloride ER 20 mEq tablet,exte nded release(par t/cryst) TAKE 2 TABLETS BY MOUTH DAILY FOR 3 DAYS 04/22 completed Not Available Not Available Not Available famotidine 20 mg tablet 20 mg by oral route. 02/16 completed Not Available Not Available Not Available levothyroxi ne 50 mcg tablet active Not Available Not Available Not Available hydrocodone 7.5 mg-acetamin ophen 325 mg tablet 1 tablet by oral route. 03/22 completed Not Available Not Available Not Available Humulin R Regular U-100 Insulin 100 unit/mL injection solution 1 unt by injection route. 03/22 completed Not Available Not Available Not Available metformin 1,000 mg tablet TAKE ONE TABLET BY MOUTH TWICE DAILY active Not Available Not Available No t Available promethazin e 25 mg/mL injection solution 12.5 mg by injection route. 02/16 completed Not Available Not Available Not Available Precedex 100 mcg/mL intravenous solution 200 microgram s by intraven. route. 02/15 completed Not Available Not Available Not Available fentanyl (PF) 50 mcg/mL injection solution 100 microgram s by injection route. 03/22 completed Not Available Not Available Not Available Mapap (acetaminop hen) 325 mg tablet 650 mg by oral route. 04/22 completed Not Available Not Available Not Available hydrochloro thiazide 25 mg tablet 12.5 mg by oral route. 03/23 completed Not Available Not Available Not Available mupirocin 2 % topical ointment APPLY SMALL AMOUNT OF OINTMENT TOPICALLY TWICE DAILY FOR 7 DAYS 04/22 completed Not Available Not Available Not Available sodium chloride 0.9 % intravenous solution 1000 mL by intraven. route. 02/16 completed Not Available Not Available Not Available dexamethaso ne sodium phosphate 4 mg/mL injection solution 4 mg by injection route. 02/15 completed Not Available Not Available Not Available ibuprofen 600 mg tablet TAKE 1 TABLET BY MOUTH EVERY 6 HOURS WITH FOOD FOR AT LEAST 3 DAYS active Not Available Not Available No t Available polyethylen e glycol 3350 17 gram/dose oral powder MIX 17 GRAMS OF POWDER IN 8 OUNCES OF LIQUID AND DRINK ONCE DAILY active Not Available Not Available No t Available levofloxaci n 500 mg tablet TAKE 1 TABLET BY MOUTH THE DAY BEFORE PROCEDURE , 1 TABLET THE DAY OF, AND 1 TABLET THE DAY AFTER active Not Available Not Available No t Available cefdinir 300 mg capsule TAKE 1 CAPSULE BY MOUTH TWICE DAILY active Not Available Not Available No t Available metformin ER 500 mg tablet,exte nded release 24 hr TAKE 2 TABLETS BY MOUTH ONCE DAILY ONCE DAILY active Not Available Not Available No t Available finasteride 5 mg tablet TAKE 1 TABLET BY MOUTH ONCE DAILY active Not Available Not Available No t Available buspirone 15 mg tablet Take 1 tablet twice a day by oral route. active Not Available Not Available No t Available midazolam 1 mg/mL injection solution 2 mg by injection route. 02/15 completed Not Available Not Available Not Available dextrose 50 % in water (D50W) intravenous syringe 25 mL by intraven. route. 03/23 completed Not Available Not Available Not Available sodium chloride 0.9 % (flush) injection syringe 10 mL by injection route. 03/23 completed Not Available Not Available Not Available hydromorpho ne 1 mg/mL injection syringe 1 mg by injection route. 02/15 completed Not Available Not Available Not Available Novolog FlexPen U-100 Insulin aspart 100 unit/mL (3 mL) subcutaneou s INJECT SUBCUTANE OUSLY DIRECTED active Not Available Not Available No t Available sodium chloride 0.9 % intravenous piggyback 100 mL by intraven. route. 03/23 completed Not Available Not Available Not Available Demerol (PF) 25 mg/mL injection syringe 12.5 mg by injection route. 02/16 completed Not Available Not Available Not Available Novolog FlexPen U-100 Insulin as needed up to 15 units 2022 active Not Available Not Available Not Avai lable Fiber Therapy active Not Available Not Available Not Available Januvia 100 mg tablet TAKE 1 TABLET BY MOUTH ONCE DAILY FOR 90 DAYS active Not Available Not Available No t Available ondansetron HCl (PF) 4 mg/2 mL injection solution 4 mg by injection route. 03/23 completed Not Available Not Available Not Available FreeStyle Lite Meter kit USE 1 TO CHECK GLUCOSE THREE TIMES DAILY active Not Available Not Available No t Available Lantus Solostar U-100 Insulin 100 unit/mL (3 mL) subcutaneou s pen INJECT 20 UNITS SUBCUTANE OUSLY EVERY DAY FOR diabetes active Not Available Not Available No t Available Lantus Solostar U-100 Insulin 1 once a day 20 units active Not Available Not Available No t Available Humalog KwikPen (U-100) Insulin 100 unit/mL subcutaneou s 1 unt by sub-q route. 03/23 completed Not Available Not Available Not Available lidocaine 2 % mucosal jelly in applicator 10 mL by mucous mem route. 02/15 completed Not Available Not Available Not Available BD Ultra-Fine Millicent Pen Needle 32 gauge x USE DIRECTED active Not Available Not Available No t Available OneTouch Verio test strips USE TO TEST BLOOD SUGAR TWICE DAILY FOR DIABETES active Not Available Not Available No t Available polyethylen e glycol (bulk) active Not Available Not Available Not Available Linzess 145 mcg capsule TAKE 1 CAPSULE BY MOUTH ONCE DAILY FOR DIARRHEA active Not Available Not Available No t Available morphine 10 mg/mL intravenous syringe 5 mg by intraven. route. 02/15 completed Not Available Not Available Not Available OneTouch Verio Flex Meter USE DIRECTED active Not Available Not Available No t Available hydromorpho ne 1 mg/mL injection solution 0.5 mg by injection route. 02/16 completed Not Available Not Available Not Available OneTouch Delica Plus Lancet 33 gauge USE DIRECTED TWICE DAILY active Not Available Not Available No t Available Tab-A-Radha 400 mcg tablet 1 tablet by oral route. 04/22 completed Not Available Not Available Not Available insulin glargine-yf gn (U-100) 100 unit/mL (3 mL) subcutaneou s pen 10 unts by sub-q route. 03/23 completed Not Available Not Available Not Available Ozempic 0.25 mg or 0.5 mg (2 mg/3 mL) subcutaneou s pen injector INJECT 0.25mg SUBCUTANE OUSLY WEEKLY FOR 4 WEEKS active Not Available Not Available No t Available Clenpiq 10 mg-3.5 gram-12 gram/175 mL oral solution TAKE 175ML BY MOUTH AT 5-9PM THE EVENING BEFORE COLONOSCO PY, TAKE THE 2ND DOSE OF 175ML THE NEXT DAY APPROXIMA TELY 5 HOURS BEFORE COLONOSCO PY active Not Available Not Available No t Available Vitals Date Recorded Body height Body mass index (BMI) Body weight Body temperature Provider Name and Address Organization Details Last Updated DateTime 12/22/2024 167.64 cm 24.2 kg/m2 18816.86 g 98.1 [degF] Matthew Neumann [facility] & [place] 12/22/2024 09:12:50 Social History Question Answer Notes LastModified by [email or web address] Details LastModified Time Tobacco Smoking Status Never Smoker Harriet Ho fraser, [facility] & [place] 02/06/2023 14:23:05 Do You Have An Advance Directive? No [email or web address] Information not available 05/02/2023 Are You Blind Or Do You Have Difficulty Seeing? Yes [email or web address] Information not available 05/02/2023 What Was The Date Of Your Most Recent Tobacco Screening? 11/20/2024 [email or web address] Information not available 11/20/2024 Are You Passively Exposed To Smoke? No Information not available 05/02/2023 How Much Tobacco Do You Smoke? No Information not available 05/02/2023 How Many Years Have You Smoked Tobacco? 0 [email or web address] Information not available 11/16/2024 Sex: Unknown Functional Status Question Answer Note LastModified by Organizat ion Details LastModified Time Do you use any illicit or recreational drugs? No [email or web address] Information not available 05/02/2023 What is your level of alcohol consumption? None Information not available 05/02/2023 Do you or have you ever used smokeless tobacco? Never used smokeless tobacco [email or web address] Information not available 05/02/2023 What is your exercise level? None [email or web address] Information not available 05/02/2023 Mental Status Question Answer Note LastModified by Organization D etails LastModified Time Do you feel stressed (tense, restless, nervous, or anxious, or unable to sleep at night)? [id number] [email or web address] Information not available 05/02/2023 Family History Relationship Description Onset Age of this Age Resolved Age Notes LastModified by Organization Details LastModified Time Mother Acute stroke [place] [id number] Not lois ilable 12/22/2024 09:03:09 Mother Disorder of endocrine system pt. added direct ly (04/22) [email or web address] Not available 04/22/2023 10:19:17 Mother Myocardial infarction pt. added direct ly (04/22) [email or web address] Not available 04/22/2023 10:19:35 Mother Hypertensive disorder pt. added direct ly (04/22) [email or web address] Not available 04/22/2023 10:20:01 Mother Cerebrovascu lar accident pt. added direct ly (04/22) [email or web address] Not available 04/22/2023 10:20:32 Mother Hypercholest erolemia pt. added direct ly (04/22) [email or web address] Not available 04/22/2023 10:20:52 Father Multiple organ failure [place] [id number] Not available 12/22 09:03:09 Father Disorder of endocrine system pt. added direct ly (04/22) [email or web address] Not available 04/22/2023 10:19:17 Father Hypertensive disorder pt. added direct ly (04/22) [email or web address] Not available 04/22/2023 10:20:01 Father Hypercholest erolemia pt. added direct ly (04/22) [email or web address] Not available 04/22/2023 10:20:52 Maternal Grandmother Disorder of endocrine system pt. added direct ly (04/22) [email or web address] Not available 04/22/2023 10:19:17 Maternal Grandmother Myocardial infarction pt. added direct ly (04/22) [email or web address] Not available 04/22/2023 10:19:35 Maternal Grandmother Hypertensive disorder pt. added direct ly (04/22) [email or web address] Not available 04/22/2023 10:20:01 Maternal Grandmother Cerebrovascu lar accident pt. added direct ly (04/22) [email or web address] Not available 04/22/2023 10:20:32 Maternal Grandmother Hypercholest erolemia pt. added direct ly (04/22) [email or web address] Not available 04/22/2023 10:20:52 Maternal Grandfather Hypertensive disorder pt. added direct ly (04/22) [email or web address] Not available 04/22/2023 10:20:01 Maternal Grandfather Cerebrovascu lar accident pt. added direct ly (04/22) [email or web address] Not available 04/22/2023 10:20:32 Medical History Condition Response Ear or Hearing Problems Y Kidney or Bladder Problems Y Diabetes Y Vision or Eye Problems Y Arthritis Y High Cholesterol Y Hypertension Y Past Encounters Encounter ID Performer Location Encounter Start Date Encounter Closed Date Diagnosis/Indication Diagnosis SNOMED-CT Code Diagnosis ICD10 Code Diagnosis Note [id number] Stan Daugherty M.D [facility] [address] [place] [address] 12/22/2024 09:03:05 12/22/2024 09:34:32 Yaya hematuria 535418858 R31.0 patient is doing well after his procedure 12/17/2024 .His catheter was removed and he voided successful ly.I have advised him to keep return to clinic in about 3-[address] Velásquez for surveillan ce cystoscopy . I have also advised him that I will be in the office until about 430 today if he is unable to void. Health Concerns Section Related Observation LastModified by Organization Detai ls LastModified Time None Recorded Concern Status LastModified by Organization Details LastModified Time None Recorded Payers Encounter Date Sequence Insurance Name Policy Number Policy Veloz Covered Member ID Veloz Member ID Guarantor Name 12/22/2024 1 [employer] (MEDICAID REPLACEMENT - HMO) Hi Goode [id number] Hi Goode Notes Date Note Type Note Provider Name and Address Organization Details Recorded Time 12/22/2024 text/html Patient presents today to have Fonseca catheter removed. He has a history of bladder cancer as well as prostate cancer for which he is currently undergoing active surveillance. 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 This was done 12/17/2024. Today he presents with a Fonseca catheter in place. He has no specific complaints. His bladder was filled with 200 mL of sterile water. His Fonseca catheter was removed. He voided spontaneously with blood-tinged Irrigation. Stan Daugherty M.D [address] [place] [address], [address], [place], [address], [place] - [facility] - [place] & [place] 12/22/2024 14:16:34
--- OUTSIDE RECORDS SUMMARY | 2025-02-01 13:38 | XMS_ITS | Data Portability ---
Author Organization [facility] [place] Address [address] [place] [address] Care Team Providers Care Regulatory Leader Name Role Phone AVERY MAYNARD Primary Care Provider Assessment No assessment recorded. Plan of Treatment Reminders Order Date Submit Date Provider Last Modified By Organization Details Last Modified Time Details Appointments PROC 15 2024 09:45A M Uche Velásquez Jr, MD Not available Not available Not available Lab PSA, total + free, serum or plasma 2024 025 [email or web address] [facility] (Laboratory), [address] [place], [address], 12/01/2024 14:05:59 urinalysi s, dipstick 2024 025 [email or web address] [facility], [address] [place] [address], [address], 11/20/2024 08:43:08 PSA, total + free, serum or plasma 2023 025 [email or web address] [facility] (Laboratory), [address] [place], [address], 12/28/2024 03:25:12 PSA, serum or plasma 2023 024 [facility] (Lab), [address] [place] [address]y [address], [place], [address], 01/01/2024 07:47:38 Referral None recorded. Procedures None recorded. Surgeries None recorded. Imaging None recorded. Medication Orders None recorded. Patient TargetsNo targets recorded. Patient InstructionsNo instructions recorded. Reason for Referral None Reported. Results Created Date Observation Date Name Description Value Unit Range Abnormal Flag Note LastModifiedBy Organization Detail LastModifiedTime 11/17/1911/16/2024 urina lysis , dipst ick Leukocytes (reference range) negati ve Not Available [address], [address], 11/16/2024 16:12:18 11/17/19 25 11/16/2024 urina lysis , dipst ick Nitrite (reference range:) negati ve Not Available [address], [address], 11/16/2024 16:12:18 11/17/19 25 11/16/2024 urina lysis , dipst ick Urobilinogen (reference range) 0.2 Not Available [address], [address], 11/16/2024 16:12:18 11/17/19 25 11/16/2024 urina lysis , dipst ick Protein (reference range) negati ve Not Available [address], [address], 11/16/2024 16:12:18 11/17/19 25 11/16/2024 urina lysis , dipst ick pH (reference range 5-8.5) 5.5 Not Available [address], [address], 11/16/2024 16:12:18 11/17/19 25 11/16/2024 urina lysis , dipst ick Blood (reference range:) large Not Available [address], [address], 11/16/2024 16:12:18 11/17/19 25 11/16/2024 urina lysis , dipst ick Specific Rozet (reference range) 1.015 Not Available [facility] [address] [place] [address], [address], 11/16/2024 16:12:18 11/17/19 25 11/16/2024 urina lysis , dipst ick Ketone (reference range) negati ve Not Available [facility] [address] [place] [address], [address], 11/16/2024 16:12:18 11/17/19 25 11/16/2024 urina lysis , dipst ick Bilirubin (reference range) negati ve Not Available [address], [address], 11/16/2024 16:12:18 11/17/19 25 11/16/2024 urina lysis , dipst ick Glucose (reference range) 1000 Not Available [address], [address], 11/16/2024 16:12:18 11/17/19 25 11/16/2024 urina lysis , dipst ick Color (reference range: yellow-brown ) Red Not Available [address], [address], 11/16/2024 16:12:18 11/21/19 25 11/20/2024 PSA, TOTAL (REFL EX TO FREE) note Unles s other owens noted testi ng perfo rmed at: [facility] [address] [place] [address] Mark mace MD Not Available [facility] (Pre-Op Clinic) [address] [place], [address], 11/22/2024 09:12:07 11/21/19 25 11/22/2024 PSA, TOTAL (REFL EX TO FREE) prostate specific Ag, serum 22.3 NG/mL 0.0-4. 0 high Rex ECLIA metho dolog y. . Accor ding to the Ameri can Urolo gical Assoc iatio n, Serum PSA shoul d decre ase and remai n at undet ectab le level s after radic al prost atect armando. The AUA defin es bioch emica l recur rence as an initi al PSA value 0.2 ng/mL or great er follo wed by a subse quent confi rmato ry PSA value 0.2 ng/mL or great er. Value s obtai nav with diffe rent assay metho ds or kits canno t be used inter alvarez eably . Resul ts canno t be inter prete d as absol dolores evide nce of the prese nce or absen ce of leidy gardner se. Not Available [facility] (Pre-Op Clinic) [address] [place] [address] [place], [address], 11/22/2024 09:12:07 11/21/1911/22/2024 PSA, TOTAL (REFL EX TO FREE) reflex criteria Commen t . The perce nt free PSA is perfo rmed on a refle x basis only when the total PSA is betwe en 4.0 and 10.0 ng/mL . Perfo rmed at: - [facility] [address] [place], [place] [id number] Lab Direc tor: Floyd otto PhD, Phone : [phone] Not Available [facility] (Pre-Op Clinic) [address] [place] [address] [place], [address], 11/22/2024 09:12:07 Result Notes None recorded. Problems Name Problem SNOMED Code Status Onset Date Resolution Date Notes Provider Name and Address Organization Details Recorded Time Hypertensive disorder 98589001 Active 2022 Not Available [facility] 3 14:10:26 Diabetes mellitus 28444477 Active 2022 Not Available [facility] 3 14:10:26 Hyperglycemia 54969610 Active 2022 Not Available [facility] 3 14:10:26 Arthritis 1101021 Active 2022 Not Available [facility] 3 14:10:26 Benign prostatic hyperplasia with outflow obstruction 932705228 Active Marti fraser, [place] - [facility] - [facility] [place] 3 09:53:36 Lesion of urinary bladder 991553928 Active Not Available [facility] 3 14:10:26 Problem Notes None recorded. Procedures Surgical History Date Name Laterality Status Provider Name and Address Organization Details Recorded Time 5 Bladder Irrigation completed Uche Velásquez Jr, MD [address], [address], [place], [address], [place] - [facility] - [facility] [place] 11/20/2024 10:15:28 5 Cystoscopy-Male completed Uche Velásquez Jr, MD [address], [address], [place], [address], [place] [facility] - [facility] & [place] 11/17/2024 09:44:31 4 Cystoscopy-Male completed Uche Velásquez Jr, MD [address], [address], [place], [address], [place] [facility] - [facility] [place] 07/08/2024 12:17:31 4 Cystoscopy-Male completed Uche Velásquez Jr, MD [address], [address], [place], [address], [place] [facility] - [facility] & [place] 12/25/2023 13:37:32 4 Cystoscopy-Male completed Uche Velásquez Jr, MD [address], [address], [place], [address], [place] [facility] - [facility] & [place] 11/14/2023 18:57:36 3 Cystoscopy-Male completed Uche Velásquez Jr, MD [address], [address], [place], [address], [place] [facility] - [facility] & [place] 07/05/2023 15:30:28 3 Cystoscopy-Male completed Uche Velásquez Jr, MD [address], [address], [place], [address], [facility] & [place] 03/15/2023 12:36:52 3 Cystoscopy-Male completed Uche Velásquez Jr, MD [address] [place] [address], [address], [place], [address], [facility] & [place] 02/07/2023 16:55:17 3 [facility] [place] 2023 11:41:08 [address] [facility] & [place] 2023 11:41:08 3 Head or Neck Surgery completed [facility] & [place] 2023 11:41:08 Imaging Results None recorded. Procedure Notes None recorded. Medical Equipment None Reported. Allergies Allergen ID Allergen Name Allergen Category Reaction Reaction Severity Criticality Documentation Date Start Date Code Code System Note Provider Name and Address Organization Details Recorded Time 95439 codeine medicatio n Not available Not available Not available 02/06/2023 2670 RxNorm Other react ions and sever ities : 'Adve rse react ion to subst ance' . Marti fraser, [facility] & [place] 3 09:53:26 Medications Name Sig Start Date [...] and Address Organization Details Last Updated DateTime 12/25/2023 167.64 cm 24.2 kg/m2 64906.86 g 97.5 [degF] Harrietsally Teague [place] - [facility] & [place] 12/25/2023 13:02:54 Date Recorded Body height Body mass index (BMI) Body weight Provider Name and Address Organization Details Last Updated DateTime 07/08/2024 167.64 cm 24.2 kg/m2 75233.86 g [facility] & [place] 07/08/2024 11:09:06 Date Recorded Body height Body mass index (BMI) Body weight Body temperature Provider Name and Address Organization Details Last Updated DateTime 11/16/2024 167.64 cm 24.2 kg/m2 23049.86 g 98.1 [degF] Matthew Neumann [place] - [place] [facility] & [place] 11/16/2024 14:39:00 Date Recorded Body height Body mass index (BMI) Body weight Body temperature Provider Name and Address Organization Details Last Updated DateTime 11/20/2024 167.64 cm 24.2 kg/m2 86563.86 g 98.1 [degF] Barbra Akbar [facility] & [place] 11/20/2024 08:39:01 Date Recorded Body height Body mass index (BMI) Body weight Body temperature Provider Name and Address Organization Details Last Updated DateTime 12/22/2024 167.64 cm 24.2 kg/m2 89074.86 g 98.1 [degF] Matthew Neumann [facility] & [place] 12/22/2024 09:12:50 Social History Question Answer Notes LastModified by [employer] Details LastModified Time Tobacco Smoking Status Never Smoker [email or web address] [place] 02/06/2023 14:23:05 Do You Have An Advance Directive? No Information not available 05/02/2023 Are You Blind Or Do You Have Difficulty Seeing? Yes [email or web address] Information not available 05/02/2023 What Was The Date Of Your Most Recent Tobacco Screening? 11/20/2024 [email or web address] Information not available 11/20/2024 Are You Passively Exposed To Smoke? No [email or web address] Information not available 05/02/2023 How Much Tobacco Do You Smoke? No [email or web address] Information not available 05/02/2023 How Many Years Have You Smoked Tobacco? 0 [email or web address] Information not available 11/16/2024 Sex: Unknown Functional Status Question Answer Note LastModified by Organizat ion Details LastModified Time Do you use any illicit or recreational drugs? No [email or web address] Information not available 05/02/2023 What is your level of alcohol consumption? None [email or web address] Information not available 05/02/2023 Do you or have you ever used smokeless tobacco? Never used smokeless tobacco [email or web address] Information not available 05/02/2023 What is your exercise level? None [email or web address] Information not available 05/02/2023 Mental Status Question Answer Note LastModified by Organization D etails LastModified Time Do you feel stressed (tense, restless, nervous, or anxious, or unable to sleep at night)? [id number] [email or web address] Information not available 05/02/2023 Family History Relationship Description Onset Age of this Age Resolved Age Notes LastModified by Organization Details LastModified Time Mother Acute stroke [email or web address] [id number] Not lois ilable 12/22/2024 09:03:09 Mother Disorder [...] available 04/22/2023 10:20:52 Father Multiple organ failure [email or web address] [address] Not available 12/22 09:03:09 Father Disorder of [...] available 04/22/2023 10:20:32 Medical History Condition Response Diabetes Y Vision or Eye Problems Y Arthritis Y Ear or Hearing Problems Y High Cholesterol Y Kidney or Bladder Problems Y Hypertension Y Past Encounters Encounter ID Performer Location Encounter Start Date Encounter Closed Date Diagnosis/Indication Diagnosis SNOMED-CT Code Diagnosis ICD10 Code Diagnosis Note [id number] Uche Velásquez Jr, MD [facility] [address] [address] 02/06/2023 14:02:19 02/06/2023 15:07:06 Incomplete emptying of urinary bladder due to benign prostatic hypertrophy 3188415378 51461 N40.1 patient with recent urinary retention. His risk factors include associated constipati on and cold and sinus medication s. His constipati on has resolved and he is weaning off of the cold and sinus medication s. Voiding trial was performed today and we were only able to get 100 cc into his bladder and he was able to void out about 20 cc. He was allowed to go home. I would like to see him back tomorrow in follow-up. He will continue the Flomax and antibiotic . Bilateral hydronephrosis 50409275 N13.30 patient with bilateral hydronephr osis and hydrourete r on recent CT scan. This is likely due to bladder outlet obstructio n. His creatinine was normal at 1.2. Prostate s pecific antigen above reference range 916760035 R97.20 PSA drawn during episode of retention was elevated at 11.2. This is not surprising repeat a CT scan once his current symptoms have resolved. [id number] Uche Velásquez Jr, MD [facility] [address] [place] [address] 02/07/2023 07:57:25 02/07/2023 08:58:04 Incomplete emptying of urinary bladder due to benign prostatic hypertrophy 3705364984 85326 N40.1 patient with recent urinary retention. His risk factors include associated constipati on and cold and sinus medication s. His constipati on has resolved and he is weaning off of the cold and sinus medication s. Voiding trial was performed today and we were only able to get 100 cc into his bladder and he was able to void out about 20 cc. He was allowed to go home. patient then returned to the emergency room last evening and [facility] Fonseca catheter was replaced. He returns today and cystoscopy was performed showing a large amount of bladder tumors as well as prostate enlargemen t. We discussed the findings and will proceed with TURBT. Malignant neoplasm of urinary bladder 714281011 C67.9 patient with recent urinary retention. Cystoscopy today shows large amount of multifocal bladder tumors present. Previous CT scan has shown prostate enlargemen t with bladder wall thickening well as bilateral hydrourete ronephrosi s. Bladder tumors may be causing the hydronephr osis as well as the bladder outlet obstructio n. We discussed trans urethral resection bladder tumors set this up at his earliest convenienc e. Patient has an extensive amount of tumor in his bladder. [id number] Uche Velásquez Jr, MD [facility] [address] [place] [address], [place] [address] 02/19/2023 11:33:32 02/19/2023 11:55:55 Malignant neoplasm of urinary bladder 595054407 C67.9 recent cystoscopy at the time of his TURBT showed that the bladder tumors were not as extensive as thought on his flexible cystoscopy . There was a lot bullous edematous changes around the bladder neck and these were resected. The pathology showed low-grade noninvasiv e cancer. Patient was reassured and we will set him up for surveillan ce cystoscopy in 3-4 months. Benign pro static hyperplasia with outflow obstruction 971168814 N40.1 patient with recent urinary retention. He underwent a TURP last week and a voiding trial was performed today. 250 cc of water placed into the bladder through the Fonseca and the catheter removed. Patient was able to void 100 cc with a decent stream. We discussed pushing fluids and restrictin g any strenuous activity. See back in 1 month with a bladder scan. Bilateral hydronephrosis 40814099 N13.30 patient with bilateral hydronephr osis and hydrourete r on recent CT scan. This is likely due to bladder outlet obstructio n. His creatinine was normal at 1.2. will repeat a scan at follow-up to determine improvemen t. [id number] Uche Velásquez Jr, MD [facility] [address] [address] 02/27/2023 09:45:40 02/27/2023 11:22:56 Benign prostatic hyperplasia with outflow obstruction 886554927 N40.1 patient with recent urinary retention. patient underwent a TURP 2 weeks ago. Voiding trial performed last week he was discharged home without his Fonseca but he had gross hematuria with clots that evening in his Fonseca catheter was replaced in the emergency room. His urine has cleared and another voiding trial was performed today. 250 cc placed into his bladder in the catheter removed. He was able to void 100 cc of clear urine. We will see him back in 2 weeks with a bladder scan. Malignant neoplasm of urinary bladder 202271816 C67.9 recent cystoscopy at the time of his TURBT showed that the bladder tumors were not as extensive as thought on his flexible cystoscopy . There was a lot bullous edematous changes around the bladder neck and these were resected. The pathology showed low-grade noninvasiv e cancer. Patient was reassured and we will set him up for surveillan ce cystoscopy in 3-4 months. Bilateral hydronephrosis 92765868 N13.30 patient with bilateral hydronephr osis and hydrourete r on recent CT scan. This is likely due to bladder outlet obstructio n. His creatinine was normal at 1.2. will repeat a scan in future to determine improvemen t. Yaya hematuria 37344070 5 R31.0 gross hematuria noted after his Fonseca catheter was removed last week. This necessitat ed an ER visit and Fonseca replacemen t. Urine is clear today and voiding trial performed. [id number] Uche Velásquez Jr, MD [facility] [address] [address] 03/15/2023 11:15:43 03/15/2023 12:17:48 Benign prostatic hyperplasia with outflow obstruction 601794053 N40.1 patient with recent urinary retention. patient underwent a TURP 4 weeks ago. He is had some recurrent urinary retention. Bladder scan today shows a residual of 673 cc. Cystoscopy was performed showing persistent bilobar hyperplasi a. His bladder was emptied and patient instructed on how to do intermitte nt self catheteriz ation. I recommende d proceeding with a TURP of residual tissue. We will set this up at his earliest convenien e. History of malignant neoplasm of bladder 685472186 Z85.51 patient with history of low-grade bladder cancer. Today cystoscopy showed no evidence of recurrence . Bilateral hydronephrosis 32640858 N13.30 patient with bilateral hydronephr osis and hydrourete r on previous CT scan. This is likely due to bladder outlet obstructio n. His creatinine was normal at 1.2. will repeat a scan in future to determine improvemen t. [id number] Giuliano Pereira MD [facility] [address] [place], [place] [address]y[place] [address] 03/11/2023 10:26:17 03/11/2023 14:03:19 Dermoid cyst of head 913002098 D36.7 [id number] Uche Velásquez Jr, MD [facility] [address] [address] 03/27/2023 09:09:49 03/27/2023 09:49:38 Benign prostatic hyperplasia with outflow obstruction 872936561 N40.1 patient with recent urinary retention. patient underwent a re-resecti on of his prostatic adenoma last week. Voiding trial was performed today and 350 cc was instilled into his bladder and he was able to void 200. Is to push fluids at home and restrict any strenuous activities . We will see him back in 1 month with a bladder scan. TUR specimen showed 3 of 81 chips with Dominic's 3+4 prostate cancer. Carcinoma of prostate 25 6178366 C61 TURP specimen shows 3 of 81 chips present with Wingo's 3+4=7 prostate cancer. We discussed that this is a low percentage of prostate cancer and watchful waiting recommende d for now. I will see him back with a PSA after his prostate has healed from the TURP. History of malignant neoplasm of bladder 635718010 Z85.51 patient with history of bladder cancer is low-grade. Repeat cystoscopy in 3 months. [id number] Giuliano Pereira MD [facility] [address] [place], [place] [address] [address] 04/25/2023 08:51:19 04/29/2023 15:52:17 [id number] Uche Vel[facility]quez Jr[facility] MD [facility] [address] [address] 2023 11:35:36 2023 12:04:26 Benign prostatic hyperplasia with outflow obstruction 440115017 N40.1 Patient is status post TURP is now voiding much better. He is happy with his current state of urination. He is off of Flomax. His bladder scan today shows a residual of 81 cc. Carcinoma of prostate 25 4056829 C61 TURP specimen shows 3 of 81 chips present with Wingo's 3+4=7 prostate cancer. We discussed that this is a low percentage of prostate cancer and watchful waiting recommende d for now. I will see him back with a PSA after his prostate has healed from the TURP. we will consider prostate biopsy if PSA is elevated. History of malignant neoplasm of bladder 190247866 Z85.51 patient with history of bladder cancer is low-grade. Repeat cystoscopy in 1 months. [id number] Giuliano Pereira MD [facility] [address] [place] [address] 8 05/02/2023 08:53:56 05/03/2023 11:02:43 Postoperative visit [id number] Z09 [id number] Giuliano Pereira MD [facility] [place] [address] 8 05/16/2023 09:27:20 05/16/2023 20:32:34 Postoperative visit 857302123 Z09 [id number] Uche Velásquez Jr, MD [address] [address] 07/05/2023 12:51:34 07/05/2023 13:30:22 Carcinoma of prostate 721323174 C61 TURP specimen shows 3 of 81 chips present with Wingo's 3+4=7 prostate cancer. PSA to be performed today. If it is significan tly elevated we discussed prostate biopsy. History of malignant neoplasm of bladder 160896765 Z85.51 patient with history of bladder cancer is low-grade. surveillan ce cystoscopy today showed no recurrence s. We will repeat in 3 months. [id number] Uche Velásquez Jr, MD [facility] [address] [address] 10/09/2023 13:27:50 10/09/2023 14:07:02 History of malignant neoplasm of bladder 049925186 Z85.51 patient with history of bladder cancer is low-grade. surveillan ce cystoscopy today showed no recurrence s. We will repeat in 3 months. Carcinoma of prostate 25 2579579 C61 TURP specimen shows 3 of 81 chips present with Dominic's 3+4=7 prostate cancer. Prostate bx 08/06 showed no cancer. PSA in 3 months. Benign pro static hyperplasia with outflow obstruction 306738139 N40.1 Patient is status post TURP is now voiding much better. He is happy with his current state of urination. He is off of Flomax. [id number] Uche Velásquez Jr, MD [facility] [address] [address] 12/25/2023 12:58:40 12/25/2023 13:36:08 Carcinoma of prostate 348099289 C61 TURP specimen shows 3 of 81 chips present with Wingo's 3+4=7 prostate cancer. Prostate bx 07/2023 showed no cancer. PSA in 3 months. Benign pro static hyperplasia without outflow obstruction 844574626 N40.0 patient with history of BPH with obstructio n. He underwent a TURP in February 2023 and is voiding well. History of malignant neoplasm of bladder 264990997 Z85.51 patient with history of bladder cancer is low-grade. surveillan ce cystoscopy today showed no recurrence s. We will repeat in 6 months. Prostate s pecific antigen above reference range 056331340 R97.20 patient is recent PSA was 6.9 with a free PSA putting him at a 23% chance of prostate cancer. Previous PSAs were 8.2, 10.1 and 12. PSA continues to decrease. Does have a history of stage TA 1 prostate cancer. Prostate biopsy in July 2023 showed no cancer. We will continue to monitor. [id number] Uche Velásquez Jr, MD [facility] [address] [address] 07/08/2024 11:00:54 07/08/2024 11:22:35 Prostate specific antigen above reference range 260659321 R97.20 Patient with history of elevated PSA. His most recent PSA was 6.2. Previous PSAs of 6.23 November 2023 10.1 in January 2023. Patient does have history of stage T1a prostate cancer. We continue to monitor. Biopsy after his TURP showed no evidence of cancer. Benign pro static hyperplasia without outflow obstruction 284155488 N40.0 patient with history of BPH with obstructio n. He underwent a TURP in February 2023 and is voiding well. History of malignant neoplasm of bladder 949758143 Z85.51 patient with history of bladder cancer is low-grade. surveillan ce cystoscopy today showed no recurrence s. We will repeat in 6 months. Carcinoma of prostate 25 8329802 C61 TURP specimen shows 3 of 81 chips present with Dominic's 3+4=7 prostate cancer. Prostate bx 07/2023 showed no cancer. PSA last week was 6.2. This is lower than previous PSAs. His prostate is large and likely cause with elevation. Will continue to monitor. [id number] Uche Velásquez Jr, MD [facility] [address] [place] [address] 11/16/2024 14:33:27 11/16/2024 16:25:10 Blood in urine [id number] R31.9 59-year-ol d white male with one-week history of gross hematuria. Cystoscopy today reveals a bleeding vessel at 9:00 a.m. position in the prostatic urethra neck. Fonseca catheter was placed to tamponade the bleeding. Discussed proceeding with cystoscopy and fulguratio n under general anesthesia . Cause of the bleeding likely from increased Valsalva from recent workouts. Prostate s pecific antigen above reference range [id number] R97.20 Patient with history of elevated PSA. His most recent PSA was 6.2. Previous PSAs of 6.23 November 2023 10.1 in January 2023. Patient does have history of stage T1a prostate cancer. We continue to monitor. Biopsy after his TURP showed no evidence of cancer. Benign pro static hyperplasia without outflow obstruction [id number] N40.0 patient with history of BPH with obstructio n. He underwent a TURP in February 2023 and is voiding well. Carcinoma of prostate 25 [id number] C61 TURP specimen shows 3 of 81 chips present with Dominic's 3+4=7 prostate cancer. Prostate bx 07/2023 showed no cancer. PSA in June was 6.2. This is lower than previous PSAs. His prostate is large and likely cause of the elevation. Will continue to monitor. History of malignant neoplasm of bladder [id number] Z85.51 patient with history of bladder cancer is low-grade. surveillan ce cystoscopy today showed no recurrence s. We will repeat in 6 months. [id number] Uche Velásquez Jr, MD [facility] [address] [facility] [place], [place] [address] 11/20/2024 08:27:39 11/20/2024 09:53:00 Prostate specific antigen above reference range [id number] R97.20 Patient with history of elevated PSA. His most recent PSA was 6.2 on 06/2024. Previous PSAs of 6.23 November 2023 10.1 in January 2023. Patient does have history of stage T1a prostate cancer. We continue to monitor. Biopsy after his TURP showed no evidence of cancer. We will repeat PSA today. Yaya hematuria [id number] R31.0 patient with recent gross hematuria noted to have a bleeding blood vessel with the 9 o'clock position near the bladder neck. He underwent cystoscopy and fulguratio n of that vessel as well as other friable prostatic vessels. He returns today for a voiding trial he was able void very well after his bladder was filled and the catheter removed. Patient is to refrain from strenuous activities for awhile. His job does require some heavy lifting and he was also been working out with heavy weights. Benign pro static hyperplasia without outflow obstruction [id number] N40.0 patient with history of BPH with obstructio n. He underwent a TURP in February 2023 and is voiding well. Carcinoma of prostate 25 [id number] C61 TURP specimen shows 3 of 81 chips present with Dominic's 3+4=7 prostate cancer. Prostate bx 07/2023 showed no cancer. PSA in June was 6.2. This is lower than previous PSAs. His prostate is large and likely cause of the elevation. recheck PSA today History of malignant neoplasm of bladder [id number] Z85.51 patient with history of bladder cancer is low-grade. recent cystoscopy showed no recurrence s. We will repeat in 6 months. [id number] Stan Daugherty M.D [facility] [address] [facility] [place] [address] 12/22/2024 09:03:05 12/22/2024 09:34:32 Yaya hematuria [id number] R31.0 patient is doing well after his [...] by Organization Details LastModified Time None Recorded Advance Directives Directive N: Payers Insurance Date Sequence Insurance Name Policy Number Policy Veloz Covered Member ID Veloz Member ID Guarantor Name 11/20/2024 2 [place]ID-[facility] [id number] - FFS/TRADITION AL [place] [id number] 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 02/07/2023 1 [facility]SE[facility] PA[facility]* [facility] 03/04/2023 1 [employer] ([place]MO) Hi Goode [id number] [facility] 11/20/2024 [place] [id number] - FFS/TRADITION [place] Hi Goode [id number] [facility] Notes Date Note Type Note Provider Name and Address Organization Details Recorded Time 12/25/2023 text/html patient is a 58-year-old white male with history of BPH, stage TA 1 prostate cancer, history of bladder cancer and elevated PSA. He returns today for routine surveillance cystoscopy. He denies any lower urinary tract symptoms or gross hematuria. He underwent a TURP in February 2023. Feels like he is voiding well. Prostate cancer grade 3 +4 was found at the time his TURP. His PSA was 10.1 at the time of his TURP. He would decreased to 8.2 in June and is down to 6.9 as of November 2023. His free PSA is 19.6 which puts him at a 17% risk of prostate cancer. He did undergo a secondary prostate biopsy in July 2023 when his gland measured 67 cc. Biopsy showed no evidence of cancer. Uche Velásquez Jr, MD [address], [address], [place], [address], [facility] & [place] 12/25/2023 13:40:45 07/08/2024 text/html Patient is a 59-year-old white male with a history of stage T1 a prostate cancer found at the time of TURP In February 2023. Patient also with history of bladder cancer status post TURBT in February 2023. Patient returns today in routine follow-up for surveillance cystoscopy. States he is voiding well denies any hematuria. At time of his TURP there were 3 of 81 chips that were positive for Wingo grade 3 + 4 prostate cancer. His PSA was 10.1 at the time of his TURP. Most recent PSA was 6.2 in June 2024. Patient did undergo a 2nd prostate biopsy July 2023 which showed no evidence of cancer. His prostate was measured at 67 cc at that time. Uche Velásquez Jr, MD [address], [address], [place], [address], [facility] & [place] 07/08/2024 12:20:21 11/16/2024 text/html 59-year-old whit e male with a history of low-grade bladder cancer as well as T1 A prostate cancer returns today with recurrent gross hematuria. States some intermittent blood in his urine the past couple weeks. States he has began a workout routine and has increased his workouts torque with pretty heavy weights in the last few weeks. Patient had a TURP in February 2023 with 3 of 81 chips positive for Dominic grade 3 + 4 prostate cancer. PSA was 10.1 at the time of his TURP in his most recent was 6.2 in June 2024.His most recent cystoscopy for surveillance was in June 2024 and showed no evidence of recurrent bladder cancer at that time. Uche Velásquez Jr, MD [address], [address], [place], [address], [facility] & [place] 01/13/2025 11:23:24 11/20/2024 text/html 59-year-old whit e male with recent gross hematuria noted to have a bleeding blood vessel at the 9 o'clock position near the bladder neck. He underwent cystoscopy with fulguration of the bleeding blood vessel as well as other friable vessels in the prostatic urethra. His Fonseca catheter was replaced and returns today for a voiding trial. He denies any hematuria at home.Patient also with a history of elevated PSA and stage T1a prostate cancer found at the time of the TURP. Three of 81 chips were involved. His last PSA was 6.2 in June 2024.Patient also with history of bladder cancer and no evidence of recurrent bladder cancer noted recent cystoscopy. Uche Velásquez Jr, MD [address] [place] [address], [address], [place], [address], [facility] & [place] 11/20/2024 10:19:39 12/22/2024 text/html Patient presents today to have [...] spontaneously with blood-tinged Irrigation. Stan Daugherty M.D [address] [place] [address], [address], [place], [address], [facility] & [place] 12/22/2024 14:16:34
== END 2025-01-29 23:59 | disposition home or self-care (01) ==
LOC: LAB.DROPOF 02-01 13:37
PROVIDERS: PCP Family Medicine; Visit Provider Family Medicine
DX: Z00.00 Encounter for general adult medical examination without abnormal findings (principal)
CPT/HCPCS: 80053

== ENCOUNTER 2025-03-08 02:19 | Emergency (ER) | payer MEDICAID, SELFPAY ==
--- NOTE | 2025-03-08 02:37 | CT_ITS ---
PROCEDURE INFORMATION: Exam: CT Abdomen And Pelvis With Contrast Exam date and time: 03/08/2025 3:18 AM Age: 59 years old Clinical indication: Abdominal pain; Other: Lower; Additional info: Acute lower abd pain, HX prostate cancer TECHNIQUE: Imaging protocol: Computed tomography of the abdomen and pelvis with contrast. Radiation optimization: All CT scans at this facility use at least one of these dose optimization techniques: automated exposure control; mA and/or kV adjustment per patient size (includes targeted exams where dose is matched to clinical indication); or iterative reconstruction. Contrast material: ISOVUE; Contrast volume: 75 ml; Contrast route: IV; COMPARISON: CT ABDOMEN PELVIS W CON 02/01/2024 5:51 PM FINDINGS: Liver: Normal. No mass. Gallbladder and biliary ducts: Normal. No calcified stones. No ductal dilation. Pancreas: Normal. No ductal dilation. Spleen: Normal. No splenomegaly. Adrenal glands: Normal. No mass. Kidneys and ureters: Normal. No hydronephrosis. Stomach and bowel: Fluid-filled colon and to a lesser extent small bowel suggesting enteritis. Appendix: No evidence of appendicitis. Intraperitoneal space: Unremarkable. No free air. No significant fluid collection. Vasculature: Unremarkable. No abdominal aortic aneurysm. Lymph nodes: Unremarkable. No enlarged lymph nodes. Urinary bladder: Unremarkable as visualized. Reproductive: Enlarged prostate gland presumably status post TURP. Bones/joints: Unremarkable. No acute fracture. Soft tissues: Unremarkable. IMPRESSION: Fluid-filled colon and to a lesser extent small bowel suggesting enteritis.
--- NOTE | 2025-03-08 02:39 | ED_ITS ---
Discharge Plan Disposition Patient Disposition: Home, Self-Care Prescriptions Prescriptions: No Action atorvastatin 40 mg tablet 40 mg PO HS Qty: 90 1RF insulin aspart U-100 [Novolog FlexPen U-100 Insulin] 100 unit/mL (3 mL) insulin pen 2 - 15 unit SQ ACHS Qty: 15 5RF Rx Instructions: Please check your blood sugar 30 minutes prior to eating 3 times a day. Please also check blood sugar before going to sleep. If blood sugar 151 to 200 mg/dL administer 2 units subcu short acting insulin If blood sugar 201 to 250 mg/dL administer 5 units subcu short acting insulin If blood sugar 251 to 300 mg/dL administer 8 units subcu short acting insulin If blood sugar 301 to 350 mg/dL administer 10 units subcu short acting insulin If blood sugar 351 to 400 mg/dL administer 12 units subcu short acting insulin If blood sugar over 400 mg/dL administer 12 units subcu short acting insulin and call doctor for further instructions. insulin glargine [Lantus Solostar U-100 Insulin] 100 unit/mL (3 mL) insulin pen 20 unit SQ DAILY Qty: 15 2RF lisinopril-hydrochlorothiazide 20-12.5 mg tablet 2 tab PO DAILY Qty: 90 2RF finasteride 5 mg tablet 5 mg PO Patient Comments: TAKE 1 TABLET BY MOUTH ONCE DAILY bupropion HCl 150 mg tablet sustained-release 12 hr 150 mg .ROUTE BID Qty: 60 2RF Rx Instructions: 150 mg twice a day; glipizide 10 mg tablet extended release 24hr See Rx Instructions .ROUTE BID Qty: 60 2RF Dose Instruction: Take 1 tablet by mouth once daily Rx Instructions: Take 1 tablet by mouth once daily twice a day; Ozempic 0.25 mg or 0.5 mg (2 mg/3 mL) pen injector 0.5 mg SQ WEEKLY Qty: 3 4RF Rx Instructions: for 4 weeks (DME) lancets [Accu-Chek Softclix Lancets] Misc See Rx Instructions .ROUTE .MEDSUPPLY Qty: 100 2RF Rx Instructions: As directed (DME) blood-glucose meter [Accu-Chek Guide Glucose Meter] Misc See Rx Instructions .ROUTE .MEDSUPPLY Qty: 1 0RF Rx Instructions: As directed (DME) Accu-Chek Guide test strips Strip See Rx Instructions .ROUTE .MEDSUPPLY Qty: 50 2RF Rx Instructions: Test blood sugar 2x a day. (DME) pen needle, diabetic 32 gauge x /32 needle See Rx Instructions .ROUTE .MEDSUPPLY Qty: 1200 0RF Rx Instructions: As directed Referrals Follow up/Referrals: Iraida Reese APRN [Primary Care Provider, Family Practice] - See instructions Activity Restrictions/Add. Instructions Additional Instructions/Restrictions: Please follow-up with your primary care provider. Please return to the emergency department if you develop any new or worsening symptoms or become concerned for your health. Consider using suppositories, enemas and zrgz-dyy-ohtgyjw MiraLAX to maintain daily soft stools. Clinical Impressions Clinical Impression: Constipation, History of prostate surgery, Abdominal pain Instructions Patient Instructions: DI for Acute Abdominal Pain Print Language Print Language: Turkish Discharge ED Provider: Aba Garcia General Adult HPI General Chief complaint: Abdominal Pain Stated complaint: Unable to pee and painful,vomitino bowel movements Time Seen by Provider: 03/08/25 02:25 History of Present Illness HPI narrative: 59-year-old male with history of diabetes, prostate surgery status post multiple TURPs and bladder surgery in presents for lower abdominal pain. He reports this started suddenly about an hour and a half ago. Reports his last bowel movement was a couple of days ago but he does not feel constipated. Reports no dysuria but reports that he is only peeing a little bit at a time. Denies any recent fever or illness. Reports vomiting as well. Nuys abdominal pain chest pain shortness of breath. Denies any intra-abdominal surgeries. Related Data Home Medications ?Medication ?Instructions ?Recorded ?Confirmed finasteride 5 mg tablet 5 mg PO 01/29/25 03/05/25 Previous Rx's ?Medication ?Instructions ?Recorded blood-glucose meter (Accu-Chek #1 ea 04/16/24 Guide Glucose Meter) lancets (Accu-Chek Softclix #100 ea 04/16/24 Lancets) atorvastatin 40 mg tablet 40 mg PO HS #90 tabs 5 insulin aspart U-100 100 unit/mL 2 - 15 unit (0.02 - 0 .15 mL) SQ 12/14/24 (3 mL) subcutaneous pen (Novolog ACHS hyperglycemia #1 5 mL FlexPen U-100 Insulin aspart) insulin glargine 100 unit/mL (3 20 unit (0.2 mL) SQ DA DASHAWN Diabetes 12/14/24 mL) subcutaneous pen (Lantus #15 mL Solostar U-100 Insulin) lisinopril 20 2 tab PO DAILY High blood pr essure 12/14/24 mg-hydrochlorothiazide 12.5 mg #90 tabs tablet blood sugar diagnostic (Accu-Chek #50 ea 12/25/24 Guide test strips) pen needle, diabetic 32 gauge x #1,200 ea 01/28/25 bupropion HCl 150 mg tablet,12 hr 150 mg .Route BID #6 0 ea 03/05/25 sustained-release glipizide 10 mg tablet, extended See Rx Instructions . Route BID #60 03/05/25 release 24 hr tabs semaglutide 0.25 mg or 0.5 mg (2 0.5 mg (0.736 mL) SQ WEEKLY #3 mL 03/05/25 mg/3 mL) subcutaneous pen injector (Ozempic) Allergies Allergy/AdvReac Type Severity Reaction Status Date / Time codeine AdvReac Intermediate Rash Verified 03/05/25 13:07 [facility] Disclaimer: The information contained in this section may have been updated after the patient was seen, as this information can be updated by other users. Medical History Contact dermatitis and eczema Acute pancreatitis Eyelid laceration, left Encounter for screening colonoscopy Viral upper respiratory tract infection Broken tooth Fonseca catheter in place Bladder cancer Bladder CA in situ Bladder cancer Constipation High cholesterol HTN (hypertension) Diabetes Constipation Surgical History History of prostate surgery Family History Grandmother Diabetes Family history of myocardial infarction Mother Diabetes Family history of myocardial infarction Father Diabetes Grandfather Diabetes Family history of myocardial infarction Social History Smoking Status: Never smoker alcohol intake: former substance use type: denies use current occupational status: employed Travel in the last 8 weeks?: None caffeine: Yes Have you lived/traveled outside US in past 30 days?: No Contact w/someone who lives/traveled outside US past 30 days?: No Exposure to someone with infectious disease in past 14 days?: No Do you have a fever (greater than 100.4 F or 38 C)?: No Have you tested positive for COVID-19?: No Exposed to someone with COVID-19 in past 14 days?: No Do you have a sore throat?: No Do you have a cough?: No Do you have any weakness?: No Do you have any diarrhea?: No Are you experiencing any unusual bleeding?: No Do you have any muscle aches/pain?: Yes Do you have any abdominal pain?: No Are you experiencing loss of taste or smell?: No Other Medical History Have you received the Flu Vaccine for this season: No Have you received the Pneumonia Vaccine: No ROS Obtained: Yes All systems reviewed & no additional complaints except as documented Physical Exam General General appearance: alert and in no apparent distress Head Head exam: atraumatic and normocephalic Eye Eye exam: Present normal appearance, PERRL and EOMI ENT ENT exam: Present normal oropharynx and normal external ear exam Neck Neck exam: Present normal inspection and full ROM Chest Chest inspection: Present normal inspection and symmetric chest wall rise; Absent tenderness Respiratory Respiratory exam: Present normal lung sounds bilaterally; Absent respiratory distress Cardiovascular Cardiovascular exam: Present regular rate and normal rhythm Abdominal Exam Abdominal exam: Present soft; Absent distention, tenderness or guarding Extremities Exam Extremities exam: Present normal inspection; Absent edema or joint swelling Back Exam Back exam: Present normal inspection; Absent tenderness Neurological Exam Neurological exam: Present alert and oriented X3; Absent motor sensory deficit Psychiatric Psychiatric exam: Present normal affect and normal mood Skin Skin exam: Present warm, dry and normal color Lymphatic Lymphatic Findings: no adenopathy Medical Decision Making Medical Records Medical records reviewed: Yes I reviewed the patient's medical records. Screening: Per USPSTF and CDC recommendations, given the prevalence of disease in our region, it is our hospital?s policy to screen for HIV and viral Hepatitis for all patients aged 18 and over and those with ongoing risk factors. Eduardo Inquiry Pt receiving controlled substance: No Eduardo was queried for this patient: No Vital Signs: 03/08/25 02:45 03/08/25 04:05 Temperature 98.0 F 98.0 F Temperature Source Oral Oral Pulse Rate 57 L Pulse Rate [Right Radial] 65 Respiratory Rate 20 15 Blood Pressure 117/73 Blood Pressure [Right Arm] 104/74 L Blood Pressure Mean [Right Arm] 84 Blood Pressure Source Automatic Cuff Blood Pressure Source [Right Arm] Automatic Cuff Blood Pressure Position Sitting Blood Pressure Position [Right Arm] Sitting 02 Sat by Pulse Oximetry 97 Oxygen Delivery Method Room Air Room Air Lab Data Lab results reviewed: Yes I reviewed the patient's lab results. Lab Results 03/08/25 02:41: WBC 11.8 H, RBC 5.34, Hgb 15.9, Hct 46.3, MCV 86.7, MCH 29.8, MCHC 34.3, RDW 12.3, Plt Count 176, MPV 13.1 H, Neut % (Auto) 62.7, Lymph % (Auto) 23.8, [place] % (Auto) 11.2 H, Eos % (Auto) 1.4, Baso % (Auto) 0.6, Neut # (Auto) 7.4, Lymph # (Auto) 2.8, [place] # (Auto) 1.3 H, Eos # (Auto) 0.2, Baso # (Auto) 0.1, Sodium 135 L, Potassium 4.0, Chloride 100, Carbon Dioxide 20 L, A nion Gap 19.0 H, BUN 22 H, Creatinine 1.10, Estimated Creat Clear 92, Estimated GFR 69, Est GFR ( Amer) 83, Glucose 201 H, Calcium 10.8 H, Total Bilirubin 0.4, AST 46, ALT 56, Alkaline Phosphatase 96, Total Protein 7.5, Albumin 4.7, Globulin 2.8, Albumin/Globulin Ratio 1.7, Lipase 144, HCV Ab FLACO w/Rflx PCR Qn Negative, HIV Ag/Ab Combo Qual Negative 03/08/25 02:41 03/08/25 02:41 Orders (Tests/Meds): ED MEDICATIONS Discontinued Medications Generic Name Dose Route Start Last Admin Trade Name Freq PRN Reason Stop Dose Admin Acetaminophen 1,000 mg 03/08/25 02:37 03/08/25 02:40 Acetaminophen 1,000mg/100ml Vial IV 03/08/25 02:38 1,000 mg ONCE ONE Administration Lactated Ringer's 1,000 mls @ 999 mls/hr 03/08/25 02:45 03/08/25 02:49 Lactated Ringer's 1000 Ml Bag IV 03/08/25 03:45 999 mls/hr .Q1H1M YUMI Administration Iopamidol 75 ml 03/08/25 03:17 03/08/25 03:20 Iopamidol-370 (76%);100ml Bottle IV 03/08/25 03:18 75 ml ONCE ONE Administration Ketorolac Tromethamine 30 mg 03/08/25 02:38 03/08/25 02:40 Ketorolac 30mg/Ml Vial IV 03/08/25 02:39 30 mg ONCE ONE Administration Ondansetron HCl 4 mg 03/08/25 02:38 03/08/25 02:40 Ondansetron 4mg/2ml Vial IV 03/08/25 02:39 4 mg ONCE ONE Administration Sodium Chloride 10 ml 03/08/25 03:17 03/08/25 03:20 Sodium Chloride 0.9% 10ml Syr (Rad Only) IV 03/08/25 03:18 10 ml ONCE ONE Administration ORDERS Category Date Time Status CT abdomen pelvis w con Stat Cat Scan 03/08/25 02:37 Completed CBC w/Auto Diff [Complete Blood Count Auto Diff] Stat Lab 03/08/25 02:41 Completed CMP [Comprehensive Metabolic Panel] Stat Lab 03/08/25 02:41 Completed HIV Combo Stat Lab 03/08/25 02:41 Completed Hepatitis C Ab Qual. W/ RFX Stat Lab 03/08/25 02:41 Completed Lipase Stat Lab 03/08/25 02:41 Completed Medical Decision Narrative: 59-year-old male with history of prostate cancer presents for acute severe lower abdominal pain, vomiting. History was obtained via interactive discussion with patient, chart review. On arrival, patient is [afebrile, hemodynamically stable, satting appropriately, alert, oriented x4, GCS 15], moving all extremities spontaneously. Full physical exam performed and significant for significant lower abdominal tenderness Differential includes but is not limited to UTI, kidney stone colitis, diverticulitis, bowel perforation, complication of prostate cancer, constipation. Patient was given Tylenol Toradol Zofran fluids for symptomatic management and correction of underlying abnormalities. Workup initiated including CBC CMP lipase UA CT abdomen pelvis with IV contrast.. On re-evaluation, patient [remains afebrile, HD stable.] Laboratory workup independently interpreted by me and significant for minimal leukocytosis, mildly elevated anion gap.. Imaging independently interpreted by me and significant for large sigmoid colonic stool burden with fluid in the colon. See radiology read for full review of final results. On reassessment, patient had a very large bowel movement and reports essentially complete resolution in symptoms. Given patient history, exam and workup, patient's presentation most likely represents constipation, likely secondary to Ozempic use. After discussion was had with patient regarding his presentation. Patient was discharged in stable condition with return precautions. Procedures Risk/Benefits of Procedure(s) Were Explained: Yes Critical Care Critical Care Time Critical Care Time: No
[2025-03-08] MEDS: KETOROLAC 30MG/ML VIAL 30 MG IV (02:40)
[2025-03-08] MEDS: ONDANSETRON 4MG/2ML VIAL 4 MG IV (02:40)
[2025-03-08] MEDS: ACETAMINOPHEN 1,000MG/100ML VIAL 1000 MG IV (02:40)
--- OUTSIDE RECORDS SUMMARY | 2025-03-08 02:41 | XMS_ITS | Clinical Summary ---
Author Organization Healthcare Address [facility] [place] [address] Care Team Providers Care Drywall Foreman Name Role Phone Justin Morales MD Primary Care Provider [phone] Social History Tobacco Use Types Packs/Day Years Used Date Smoking Tobacco: Never Alcohol Use Standard Drinks/Week Comments No 0 (1 standard drink = 0.6 oz pur e alcohol) Sex and Gender Information Value Date Recorded Sex Assigned at Not on file Legal Sex Male 6:50 PM EDT Gender Identity Not on file Sexual Orientation Not on file Last Filed Vital Signs Vital Sign Reading Time Taken Comments Blood Pressure 139/91 12/05/2017 3:02 PM EDT Pulse 61 12/05/2017 3:02 PM EDT Temperature - - Respiratory Rate - - Oxygen Saturation - - Inhaled Oxygen Concentration - - Weight 93 kg (205 lb 0.1 oz) 12/05/2017 3:02 PM EDT Height 167.6 cm (5' 6 ) 12/05/2017 3:02 PM EDT Body Mass Index 33.09 12/05/2017 3:02 PM EDT Plan of Treatment Health Maintenance Due Date Last Done Comments [facility]-Depression Screening 1966 [facility]-Infant/Child/Adol SDOH Screenings 1966 [facility]- SDOH Screenings 1984 [facility]-Adult SDOH Screenings 1984 CT Colonography 2011 Colonoscopy 2011 FIT-DNA 2011 FIT 2011 FOBT 2011 Sigmoidoscopy 2011 [facility]-Colorectal Cancer Screening 2011 [facility]-Hepatitis B Vaccines (3 of 3 - Hep B Twinrix 3-dose series) 08/02/2018 03/02/2018, 12/31/2017 [facility]-Pneumococcal Vaccine: 50 + Years (2 of 2 - PCV) 09/07/2021 09/07/2020 [id number] Vaccine (3 - season) 2024 07/21/2021, 06/22/2021 [facility]-Influenza Vaccine (Seaso n Ended) 2025 06/22/2021, 09/19/2020, 06/23/2019 [facility]-DTaP,Tdap,and Td Vaccine s (3 - Td or Tdap) 09/07/2030 09/07/2020, 08/29/2016 [facility]-Hepatitis A Vaccines Aged Out 018, 12/31/2017 No longer eligible based on patient's age to complete this topic [facility]-Zoster Vaccines Completed 03/02/2018, 12/31/2017 HPV Vaccines Aged Out No longer eligi ble based on patient's age to complete this topic [facility]-HIB Vaccines Aged Out No longer e ligible based on patient's age to complete this topic [facility]-IPV Vaccines Aged Out No longer e ligible based on patient's age to complete this topic [facility]-Rotavirus Vaccines Aged Out No lo nger eligible based on patient's age to complete this topic Care Teams Drywall Foreman Relationship Specialty Start Date End Date Justin Morales MD [address] [place] [address] PCP - General 01/27/21
--- OUTSIDE RECORDS SUMMARY | 2025-03-08 02:41 | XMS_ITS | Encounter Summary ---
Author Organization Healthcare Address [address] [place] [address] Care Team Providers Care Fruit Harvester Name Role Phone Justin Morales MD Primary Care Provider Encounter Details Date Type Department Care Team (Late st Contact Info) Description 01/31/2023 Community [facility] [address] [place] [address] Kayla Monroy DO [address] [place] [address] Increased prostate specific antigen (PSA) velocity (Primary Dx) Social History Tobacco Use Types Packs/Day Years Used Date Smoking Tobacco: Never Alcohol Use Standard Drinks/Week Comments No 0 (1 standard drink = 0.6 oz pur e alcohol) Sex and Gender Information Value Date Recorded Sex Assigned at Not on file Legal Sex Male 6:50 PM EDT Gender Identity Not on file Sexual Orientation Not on file documented as of this encounter Plan of Treatment Not on file documented as of this encounter Visit Diagnoses Diagnosis Increased prostate specific antigen (PSA) velocity- Primary documented in this encounter Care Teams Fruit Harvester Relationship Specialty Start Date End Date Justin Morales MD [address] [place] [address] PCP - General 01/27/21 documented as of this encounter
--- OUTSIDE RECORDS SUMMARY | 2025-03-08 02:41 | XMS_ITS | Data Portability ---
Author Organization [facility] & [facility] Medicine and Peds [place] Address [address] [place] [address] Care Team Providers Care Clay Modeler Name Role Phone AVERY MAYNARD Primary Care Provider [phone] Assessment No assessment recorded. Plan of Treatment Reminders Order Date Submit Date Provider Last Modified By Organization Details Last Modified Time Details Appointments PROC 2024 09:45A M Uche Velásquez Jr, MD Not available Not available Not available Lab PSA, total + free, serum or plasma 2024 025 [email or web address] [facility] (Laboratory), [address] [place], [address], 12/01/2024 14:05:59 urinalysi s, dipstick 2024 025 [email or web address] [facility], [address] [place] [address], [address], 11/20/2024 08:43:08 PSA, total + free, serum or plasma 2023 025 [facility] [address] [place], [address], 12/28/2024 03:25:12 PSA, serum or plasma 2023 024 [email or web address] [facility] (Lab), [address] [place], [place] [address]y [address], [place], [address], 01/01/2024 07:47:38 Referral None recorded. Procedures None recorded. Surgeries None recorded. Imaging None recorded. Medication Orders None recorded. Patient TargetsNo targets recorded. Patient InstructionsNo instructions recorded. Reason for Referral None Reported. Results Created Date Observation Date Name Description Value Unit Range Abnormal Flag Note LastModifiedBy Organization Detail LastModifiedTime 11/17/1911/16/2024 urina lysis , dipst ick Leukocytes (reference range) negati ve Not Available [facility] [address] [place] [address], [address], 11/16/2024 16:12:18 11/17/19 25 11/16/2024 urina lysis , dipst ick Nitrite (reference range:) negati ve Not Available [address], [address], 11/16/2024 16:12:18 11/17/19 25 11/16/2024 urina lysis , dipst ick Urobilinogen (reference range) 0.2 Not Available [address], [address], 11/16/2024 16:12:18 11/17/19 25 11/16/2024 urina lysis , dipst ick Protein (reference range) negati ve Not Available [address], [address], 11/16/2024 16:12:18 11/17/19 25 11/16/2024 urina lysis , dipst ick pH (reference range 5-8.5) 5.5 Not Available [address], [address], 11/16/2024 16:12:18 11/17/19 25 11/16/2024 urina lysis , dipst ick Blood (reference range:) large Not Available [address], [address], 11/16/2024 16:12:18 11/17/19 25 11/16/2024 urina lysis , dipst ick Specific [place] (reference range) 1.015 Not Available [facility] [address] [place] [address], [address], 11/16/2024 16:12:18 11/17/19 25 11/16/2024 urina lysis , dipst ick Ketone (reference range) negati ve Not Available [facility] [address] [place] [address], [address], 11/16/2024 16:12:18 11/17/19 25 11/16/2024 urina lysis , dipst ick Bilirubin (reference range) negati ve Not Available [address], [address], 11/16/2024 16:12:18 11/17/19 25 11/16/2024 urina lysis , dipst ick Glucose (reference range) 1000 Not Available [address], [address], 11/16/2024 16:12:18 11/17/19 25 11/16/2024 urina lysis , dipst ick Color (reference range: yellow-brown ) Red Not Available [address], [address], 11/16/2024 16:12:18 11/21/19 25 11/20/2024 PSA, TOTAL (REFL EX TO FREE) note Unles s other owens noted testi ng perfo [facility]med at: [facility] [address] [place] [address] Mark mace MD Not Available [facility] (Pre-Op Clinic) [address] [place] [address] [place], [address], 11/22/2024 09:12:07 11/21/19 25 11/22/2024 PSA, TOTAL [...] ce of leidy gardner se. Not Available [facility] (Pre-Op Clinic) [address] [place] [address] [place], [address], 11/22/2024 09:12:07 11/21/1911/22/2024 PSA, TOTAL (REFL EX TO FREE) reflex criteria Commen t . The perce nt free PSA is perfo rmed on a refle x basis only when the total PSA is betwe en 4.0 and 10.0 ng/mL . Perfo rmed at: - [facility] [address] [id number] [facility] Lab Direc tor: Floyd otto PhD, Phone : [phone] Not Available [facility] (Pre-Op Clinic) [address] [place] [address] [place], [address], 11/22/2024 09:12:07 Result Notes None recorded. Problems Name Problem SNOMED Code Status Onset Date Resolution Date Notes Provider Name and Address Organization Details Recorded Time Hypertensive disorder 19891315 Active 2022 Not Available [facility] 3 14:10:26 Diabetes mellitus 50961369 Active 2022 Not Available [facility] 14:10:26 Hyperglycemia 54727233 Active 2022 Not Available [facility] 3 14:10:26 Arthritis 5692472 Active 2022 Not Available [facility] 3 14:10:26 Benign prostatic hyperplasia with outflow obstruction 897590284 Active Marti fraser, [place] - [facility] - [place] & [place] 3 09:53:36 Lesion of urinary bladder 120454531 Active Not Available [facility] 3 14:10:26 Problem Notes None recorded. Procedures Surgical History Date Name Laterality Status Provider Name and Address Organization Details Recorded Time 5 Bladder Irrigation completed Uche Velásquez Jr, MD [address], [address], [place], [address], [place] [facility] [place] 11/20/2024 10:15:28 5 Cystoscopy-Male completed Uche Velásquez Jr, MD [address], [address], [place], [address], [place] [facility] [place] 11/17/2024 09:44:31 4 Cystoscopy-Male completed Uche Velásquez Jr, MD [address], [address], [place], [address], [place] [facility] [place] 07/08/2024 12:17:31 4 Cystoscopy-Male completed Uche Velásquez Jr, MD [address], [address], [place], [address], [place] [facility] [place] 12/25/2023 13:37:32 4 Cystoscopy-Male completed Uche Velásquez Jr, MD [address], [address], [place], [address], [place] [facility] [place] 11/14/2023 18:57:36 3 Cystoscopy-Male completed Uche Velásquez Jr, MD [address], [address], [place], [address], [place] [facility] [place] 07/05/2023 15:30:28 3 Cystoscopy-Male completed Uche Velásquez Jr, MD [address], [address], [place], [address], [facility] & [place] 03/15/2023 12:36:52 3 Cystoscopy-Male completed Uche Velásquez Jr, MD [address], [address], [place], [address], [facility] & [place] 02/07/2023 16:55:17 3 Cancer [facility] [place] [facility] [place] 2023 11:41:08 3 Prostate Surgery completed [facility] & [place] 2023 11:41:08 3 Head or Neck Surgery completed [facility] & [place] 2023 11:41:08 Imaging Results None recorded. Procedure Notes None recorded. Medical Equipment None Reported. Allergies Allergen ID Allergen Name Allergen Category Reaction Reaction Severity Criticality Documentation Date Start Date Code Code System Note Provider Name and Address Organization Details Recorded Time 24762 codeine medicatio n Not available Not available Not available 02/06/2023 2670 RxNorm Other react ions and sever ities : 'Adve rse react ion to subst ance' . Marti fraser, [facility] & [place] 3 09:53:26 Medications Name Sig Start Date [...] Ultra-Fine Millicent Pen Needle 32 gauge x /32 USE DIRECTED active Not Available Not Available [...] Updated DateTime 11/16/2024 167.64 cm 24.2 kg/m2 73529.86 g 98.1 [degF] Matthew OLSON [facility] 11/16/2024 14:39:00 Date Recorded Body height Body mass index (BMI) Body weight Body temperature Provider Name and Address Organization Details Last Updated DateTime 11/20/2024 167.64 cm 24.2 kg/m2 94323.86 g 98.1 [degF] Barbra Sipple RAFAEL - W[facility] & [place] 11/20/2024 08:39:01 Date Recorded Body height Body mass index (BMI) Body weight Body temperature Provider Name and Address Organization Details Last Updated DateTime 12/22/2024 167.64 cm 24.2 kg/m2 40317.86 g 98.1 [degF] Matthew Bennett [facility] & [place] 12/22/2024 09:12:50 Date Recorded Body height Body mass index (BMI) Body weight Body temperature Provider Name and Address Organization Details Last Updated DateTime 12/25/2023 167.64 cm 24.2 kg/m2 40229.86 g 97.5 [degF] Harriet Teague [facility] & [place] 12/25/2023 13:02:54 Date Recorded Body height Body mass index (BMI) Body weight Provider Name and Address Organization Details Last Updated DateTime 07/08/2024 167.64 cm 24.2 kg/m2 36945.86 g April Wylie [facility] & [place] 07/08/2024 11:09:06 Social History Question Answer Notes LastModified by Organizat ion Details LastModified Time Tobacco Smoking Status [facility]oker [facility] [place] 02/06/2023 14:23:05 Do You Have An Advance Directive? No [email or web address] Information not available 05/02/2023 Are You Blind Or Do You Have Difficulty Seeing? Yes [email or web address] Information not available 05/02/2023 What Was The Date Of Your Most Recent Tobacco Screening? 11/20/2024 [email or web address] Information not available 11/20/2024 Are You Passively Exposed To Smoke? No [email or web address] Information not available 05/02/2023 How Much Tobacco Do You Smoke? No [email or web address] Information not available 05/02/2023 How Many Years Have You Smoked Tobacco? 0 [email or web address] Information not available 11/16/2024 Sex: Unknown Functional Status Question Answer Note LastModified by Organizat ion Details LastModified Time Do you use any illicit or recreational drugs? No [email or web address] Information not available 05/02/2023 What is your level of alcohol consumption? None [email or web address] Information not available 05/02/2023 Do you or have you ever used smokeless tobacco? Never used smokeless tobacco [email or web address] Information not available 05/02/2023 What is your exercise level? None [email or web address] Information not available 05/02/2023 Mental Status Question Answer Note LastModified by Organization D etails LastModified Time Do you feel stressed (tense, restless, nervous, or anxious, or unable to sleep at night)? [id number] [email or web address] Information not available 05/02/2023 Family History Relationship Description Onset Age of this Age Resolved Age Notes LastModified by Organization Details LastModified Time Mother Acute stroke [place] [id number] Not lois ilable 12/22/2024 09:03:09 Mother Disorder [...] available 04/22/2023 10:20:52 Father Multiple organ failure [place] [id number] Not available 12/22 09:03:09 Father Disorder of [...] SNOMED-CT Code Diagnosis ICD10 Code Diagnosis Note [id number] Uche Velásquez Jr, MD [facility] [address] [address] 02/06/2023 14:02:19 02/06/2023 15:07:06 Incomplete emptying of urinary bladder due to benign prostatic hypertrophy 2531113517 15339 N40.1 patient with recent urinary retention. His [...] the Flomax and antibiotic . Bilateral hydronephrosis 22270059 N13.30 patient with bilateral hydronephr osis and hydrourete r on recent CT scan. This is likely due to bladder outlet obstructio n. His creatinine was normal at 1.2. Prostate s pecific antigen above reference range 882943028 R97.20 PSA drawn during episode of retention was elevated at 11.2. This is not surprising repeat a CT scan once his current symptoms have resolved. [id number] Uche Velásquez Jr, MD [facility] [address] [place] [address] 02/07/2023 07:57:25 02/07/2023 08:58:04 Incomplete emptying of urinary bladder due to benign prostatic hypertrophy 3723561836 67683 N40.1 patient with recent urinary retention. His [...] to the emergency room last evening and [facility] Fonseca catheter was replaced. He returns today and cystoscopy was performed showing a large amount of bladder tumors as well as prostate enlargemen t. We discussed the findings and will proceed with TURBT. Malignant neoplasm of urinary bladder 765825687 C67.9 patient with recent urinary retention. Cystoscopy [...] extensive amount of tumor in his bladder. [id number] Uche Velásquez Jr, MD [facility] [address] [place] [address] 02/19/2023 11:33:32 02/19/2023 11:55:55 Malignant neoplasm of urinary bladder 829341649 C67.9 recent cystoscopy at the time of [...] Benign pro static hyperplasia with outflow obstruction 587785061 N40.1 patient with recent urinary retention. He [...] month with a bladder scan. Bilateral hydronephrosis 31389668 N13.30 patient with bilateral hydronephr osis and hydrourete r on recent CT scan. This is likely due to bladder outlet obstructio n. His creatinine was normal at 1.2. will repeat a scan at follow-up to determine improvemen t. [id number] Uche Velásquez Jr, MD [facility] [address] [address] 02/27/2023 09:45:40 02/27/2023 11:22:56 Benign prostatic hyperplasia with outflow obstruction 690038835 N40.1 patient with recent urinary retention. patient [...] bladder scan. Malignant neoplasm of urinary bladder 331304021 C67.9 recent cystoscopy at the time of [...] ce cystoscopy in 3-4 months. Bilateral hydronephrosis 68454615 N13.30 patient with bilateral hydronephr osis and hydrourete r on recent CT scan. This is likely due to bladder outlet obstructio n. His creatinine was normal at 1.2. will repeat a scan in future to determine improvemen t. Yaya hematuria 59760299 5 R31.0 gross hematuria noted after his Fonseca catheter was removed last week. This necessitat ed an ER visit and Fonseca replacemen t. Urine is clear today and voiding trial performed. [id number] Uche Velásquez Jr, MD [facility] [address] [address] 03/15/2023 11:15:43 03/15/2023 12:17:48 Benign prostatic hyperplasia with outflow obstruction 447016234 N40.1 patient with recent urinary retention. patient [...] will set this up at his earliest convenienc e. History of malignant neoplasm of bladder 063347149 Z85.51 patient with history of low-grade bladder cancer. Today cystoscopy showed no evidence of recurrence . Bilateral hydronephrosis 79499238 N13.30 patient with bilateral hydronephr osis and hydrourete r on previous CT scan. This is likely due to bladder outlet obstructio n. His creatinine was normal at 1.2. will repeat a scan in future to determine improvemen t. [id number] Giuliano Pereira MD [facility] [address] [place] [address] [place] [address] 03/11/2023 10:26:17 03/11/2023 14:03:19 Dermoid cyst of head 786707780 D36.7 [id number] Uche Velásquez Jr, MD [facility] [address] [address] 03/27/2023 09:09:49 03/27/2023 09:49:38 Benign prostatic hyperplasia with outflow obstruction 706905862 N40.1 patient with recent urinary retention. patient [...] 3+4 prostate cancer. Carcinoma of prostate 25 4087545 C61 TURP specimen shows 3 of 81 chips present with Weir's 3+4=7 prostate cancer. We discussed that this is a low percentage of prostate cancer and watchful waiting recommende d for now. I will see him back with a PSA after his prostate has healed from the TURP. History of malignant neoplasm of bladder 718082449 Z85.51 patient with history of bladder cancer is low-grade. Repeat cystoscopy in 3 months. [id number] Giuliano Pereira MD [facility] [address] [place], [place] [address]y[place] [address] 04/25/2023 08:51:19 04/29/2023 15:52:17 [id number] Uche Velásquez Jr, MD [facility] [address] [address] 2023 11:35:36 2023 12:04:26 Benign prostatic hyperplasia with outflow obstruction 121787819 N40.1 Patient is status post TURP is now voiding much better. He is happy with his current state of urination. He is off of Flomax. His bladder scan today shows a residual of 81 cc. Carcinoma of prostate 25 4821630 C61 TURP specimen shows 3 of 81 chips present with Weir's 3+4=7 prostate cancer. We discussed that this is a low percentage of prostate cancer and watchful waiting recommende d for now. I will see him back with a PSA after his prostate has healed from the TURP. we will consider prostate biopsy if PSA is elevated. History of malignant neoplasm of bladder 562466577 Z85.51 patient with history of bladder cancer is low-grade. Repeat cystoscopy in 1 months. [id number] Giuliano Pereira MD [facility] [address] [place] [address] 05/02/2023 08:53:56 05/03/2023 11:02:43 Postoperative visit 255960006 Z09 [id number] [place] [address] 05/16/2023 09:27:20 05/16/2023 20:32:34 Postoperative visit 124656375 Z09 [id number] Uche Velásquez Jr, MD [address] [address] 07/05/2023 12:51:34 07/05/2023 13:30:22 Carcinoma of prostate 600394525 C61 TURP specimen shows 3 of 81 chips present with Dominic's 3+4=7 prostate cancer. PSA to be performed today. If it is significan tly elevated we discussed prostate biopsy. History of malignant neoplasm of bladder 000228652 Z85.51 patient with history of bladder cancer is low-grade. surveillan ce cystoscopy today showed no recurrence s. We will repeat in 3 months. [id number] Uche Velásquez Jr, MD [facility] [address] [address] 10/09/2023 13:27:50 10/09/2023 14:07:02 History of malignant neoplasm of bladder 983168269 Z85.51 patient with history of bladder cancer is low-grade. surveillan ce cystoscopy today showed no recurrence s. We will repeat in 3 months. Carcinoma of prostate 25 4319428 C61 TURP specimen shows 3 of 81 chips present with Weir's 3+4=7 prostate cancer. Prostate bx 08/06 showed no cancer. PSA in 3 months. Benign pro static hyperplasia with outflow obstruction 616651514 N40.1 Patient is status post TURP is now voiding much better. He is happy with his current state of urination. He is off of Flomax. [id number] Uche Velásquez Jr, MD [facility] [address] [address] 12/25/2023 12:58:40 12/25/2023 13:36:08 Carcinoma of prostate 365207983 C61 TURP specimen shows 3 of 81 chips present with Dominic's 3+4=7 prostate cancer. Prostate bx 07/2023 showed no cancer. PSA in 3 months. Benign pro static hyperplasia without outflow obstruction 207870346 N40.0 patient with history of BPH with obstructio n. He underwent a TURP in February 2023 and is voiding well. History of malignant neoplasm of bladder 908566505 Z85.51 patient with history of bladder cancer is low-grade. surveillan ce cystoscopy today showed no recurrence s. We will repeat in 6 months. Prostate s pecific antigen above reference range 781978905 R97.20 patient is recent PSA was 6.9 with a free PSA putting him at a 23% chance of prostate cancer. Previous PSAs were 8.2, 10.1 and 12. PSA continues to decrease. Does have a history of stage TA 1 prostate cancer. Prostate biopsy in July 2023 showed no cancer. We will continue to monitor. [id number] Uche Velásquez Jr, MD [facility] [address] [address] 07/08/2024 11:00:54 07/08/2024 11:22:35 Prostate specific antigen above reference range 334240277 R97.20 Patient with history of elevated PSA. His most recent PSA was 6.2. Previous PSAs of 6.23 November 2023 10.1 in January 2023. Patient does have history of stage T1a prostate cancer. We continue to monitor. Biopsy after his TURP showed no evidence of cancer. Benign pro static hyperplasia without outflow obstruction 438289130 N40.0 patient with history of BPH with obstructio n. He underwent a TURP in February 2023 and is voiding well. History of malignant neoplasm of bladder 370750167 Z85.51 patient with history of bladder cancer is low-grade. surveillan ce cystoscopy today showed no recurrence s. We will repeat in 6 months. Carcinoma of prostate 25 1013383 C61 TURP specimen shows 3 of 81 chips present with Dominic's 3+4=7 prostate cancer. Prostate bx 07/2023 showed no cancer. PSA last week was 6.2. This is lower than previous PSAs. His prostate is large and likely cause with elevation. Will continue to monitor. [id number] Uche Velásquez Jr, MD [facility] [place] [address] 11/16/2024 14:33:27 11/16/2024 16:25:10 Blood in urine 57316512 R31.9 59-year-ol d white male with one-week history of gross hematuria. Cystoscopy today reveals a bleeding vessel at 9:00 a.m. position in the prostatic urethra neck. Fonseca catheter was placed to tamponade the bleeding. Discussed proceeding with cystoscopy and fulguratio n under general anesthesia . Cause of the bleeding likely from increased Valsalva from recent workouts. Prostate s pecific antigen above reference range 100402873 R97.20 Patient with history of elevated PSA. His most recent PSA was 6.2. Previous PSAs of 6.23 November 2023 10.1 in January 2023. Patient does have history of stage T1a prostate cancer. We continue to monitor. Biopsy after his TURP showed no evidence of cancer. Benign pro static hyperplasia without outflow obstruction 598614185 N40.0 patient with history of BPH with obstructio n. He underwent a TURP in February 2023 and is voiding well. Carcinoma of prostate 25 4987018 C61 TURP specimen shows 3 of 81 chips present with Dominic's 3+4=7 prostate cancer. Prostate bx 07/2023 showed no cancer. PSA in June was 6.2. This is lower than previous PSAs. His prostate is large and likely cause of the elevation. Will continue to monitor. History of malignant neoplasm of bladder 090380606 Z85.51 patient with history of bladder cancer is low-grade. surveillan ce cystoscopy today showed no recurrence s. We will repeat in 6 months. [id number] Uche Velásquez Jr, MD [facility] [place] [address] 11/20/2024 08:27:39 11/20/2024 09:53:00 Prostate specific antigen above reference range 427483602 R97.20 Patient with history of elevated PSA. His most recent PSA was 6.2 on 06/2024. Previous PSAs of 6.23 November 2023 10.1 in January 2023. Patient does have history of stage T1a prostate cancer. We continue to monitor. Biopsy after his TURP showed no evidence of cancer. We will repeat PSA today. Yaya hematuria 33312468 5 R31.0 patient with recent gross hematuria [...] Benign pro static hyperplasia without outflow obstruction 533641868 N40.0 patient with history of BPH with obstructio n. He underwent a TURP in February 2023 and is voiding well. Carcinoma of prostate 25 5201440 C61 TURP specimen shows 3 of 81 chips present with Dominic's 3+4=7 prostate cancer. Prostate bx 07/2023 showed no cancer. PSA in June was 6.2. This is lower than previous PSAs. His prostate is large and likely cause of the elevation. recheck PSA today History of malignant neoplasm of bladder 202353110 Z85.51 patient with history of bladder cancer is low-grade. recent cystoscopy showed no recurrence s. We will repeat in 6 months. 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 Uche Velásquez Jr, MD [address], [address], [place], [address], [facility] & [place] 12/25/2023 13:40:45 07/08/2024 text/html Patient is a [...] of 81 chips that were positive for Dominic grade 3 + 4 prostate cancer. His PSA was 10.1 at the time of his TURP. Most recent PSA was 6.2 in June 2024. Patient did undergo a 2nd prostate biopsy July 2023 which showed no evidence of cancer. His prostate was measured at 67 cc at that time. Uche Velásquez Jr, MD [address], [address], [place], [address], [facility] [place] 07/08/2024 12:20:21 11/16/2024 text/html 59-year-old whit e [...] Jr, MD [address], [address], [place], [address], [facility] [place] 01/13/2025 11:23:24 11/20/2024 text/html 59-year-old whit e [...] noted recent cystoscopy. Uche Velásquez Jr, MD [address] [place] [address], [address], [place], [address], [facility] [place] 11/20/2024 10:19:39 12/22/2024 text/html Patient presents today [...] spontaneously with blood-tinged Irrigation. Stan Daugherty M.D [address] [place] [address], [address], [place], [address], [facility] [place] 12/22/2024 14:16:34
[2025-03-08 02:45] VITALS: BP 104/74; PULSE 65; RESP 20; TEMP 36.7; O2SAT 97; BMI 31.4
[2025-03-08] MEDS: LACTATED RINGERS 1000ML 1,000 ML 999 ML IV (02:49)
[2025-03-08 03:03] LABS: Albumin Level 4.7 g/dl (3.5-5.0); Chloride 100 mmol/L (98-107); Sodium 135 mmol/L (136-145)
[2025-03-08 03:06] LABS: Alanine Aminotransferase 56 U/L (12-78); Albumin/Globulin Ratio 1.7 (1.1-1.8); Alkaline Phosphatase 96 U/L (38-126); Aspartate Amino Transferase 46 U/L (17-59); Bilirubin,Total 0.4 mg/dl (0.2-1.3); Blood Urea Nitrogen 22 mg/dl (9-20); Calcium 10.8 mg/dl (8.4-10.2); Carbon Dioxide 20 mmol/L (22.0-30.0); Creatinine Clearance Estimated 92 mL/min (50-200); Estimated Glomerular Filt Rate 69 ml/min (>60); GFR (African American) 83 ML/MIN (>60); Globulin 2.8 g/dL (1.3-3.2); Glucose 201 mg/dl (74-100); Lipase 144 U/L (23-300); Total Protein,Serum 7.5 g/dl (6.3-8.2)
--- NOTE | 2025-03-08 03:12 | PC.NURSE ---
PT transported to CT via wheelchair by radiology staff.
[2025-03-08] MEDS: IOPAMIDOL-370 (76%);100ML BOTTLE 75 ML IV (03:20)
[2025-03-08] MEDS: SODIUM CHLORIDE 0.9% 10ML SYR (RAD ONLY) 10 ML IV (03:20)
[2025-03-08 03:42] LABS: Basophils # 0.1 K/mm3 (0-0.2); Basophils % 0.6 % (0.1-2.0); Eosinophils # 0.2 Kmm3 (0.0-0.4); Eosinophils % 1.4 % (0.1-12.0); Hematocrit 46.3 % (42.0-52.0); Hemoglobin 15.9 g/dL (14.1-18.0); Immature Granulocytes # 0.04 10^3uL; Immature Granulocytes % 0.3 %; Lymphocytes # 2.8 K/mm3 (0.7-4.5); Lymphocytes % 23.8 % (10-50); Mean Corpuscular HGB Conc 34.3 g/dL (31.8-35.4); Mean Corpuscular Hemoglobin 29.8 pg (27.0-31.2); Mean Corpuscular Volume 86.7 fl (80-94); Mean Platelet Volume 13.1 fl (7.4-10.4); Monocytes # 1.3 K/mm3 (0.1-1.0); Monocytes % 11.2 % (1.7-9.3); Neutrophils # 7.4 K/mm3 (1.8-7.8); Neutrophils % 62.7 % (37.0-80.0); Nucleated Red Blood Cells # 0 10^3/uL; Nucleated Red Blood Cells % 0 %; Platelet Count 176 K/mm3 (142-424); Red Blood Count 5.34 M/mm3 (4.60-6.20); Red Cell Distribution Width 12.3 % (11.5-17.5); Red Cell Distribution Width-SD 38.2 fL; White Blood Count 11.8 K/mm3 (4.8-10.8)
[2025-03-08 03:47] LABS: HIV Combo NEGATIVE (Negative)
[2025-03-08 03:55] LABS: Hepatitis C Ab Qual. W/ RFX NEGATIVE (Negative)
[2025-03-08 04:05] VITALS: BP 117/73; PULSE 57; RESP 15; TEMP 36.7; O2SAT 98
== END 2025-03-08 04:06 | disposition home or self-care (01) ==
PROVIDERS: Emergency Provider Emergency Medicine; PCP Family Medicine
DX: R10.30 Lower abdominal pain, unspecified (principal); K59.00 Constipation, unspecified; Z98.890 Other specified postprocedural states
CPT/HCPCS: 74177; 80053; 83690; 85025; 86803; 87389; 96361; 96374; 96375; 99284; J0131; J1885; J2405; J7120; Q9967

== ENCOUNTER 2025-03-09 14:52 | Emergency (ER) | payer MEDICAID, SELFPAY ==
[2025-03-09 15:26] VITALS: BP 121/61; PULSE 90; RESP 20; TEMP 37; O2SAT 98; BMI 31.4
--- OUTSIDE RECORDS SUMMARY | 2025-03-09 15:32 | XMS_ITS | Clinical Summary ---
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
--- OUTSIDE RECORDS SUMMARY | 2025-03-09 15:32 | XMS_ITS | Encounter Summary ---
Author Organization Healthcare Address [address] [place] [address] Care Team Providers Care Rebeamer Name Role Phone Justin Morales MD Primary Care Provider [phone] Encounter Details Date Type Department Care Team (Late st Contact Info) Description 01/31/2023 [facility] [address] [place] [address] Kayla Monroy DO [address] [place] [address] Increased prostate specific antigen (PSA) velocity (Primary [...] Primary documented in this encounter Care Teams Rebeamer Relationship Specialty Start Date End Date Justin Morales MD [address] [address] PCP - General 01/27/21 documented as of this encounter
--- OUTSIDE RECORDS SUMMARY | 2025-03-09 15:32 | XMS_ITS | Data Portability ---
Author Organization [facility] & [facility] [place] Address [address] [place] [address] Care Team Providers Care Roll Finisher Name Role Phone AVERY MAYNARD Primary Care Provider [phone] Assessment No assessment recorded. Plan of Treatment Reminders Order Date Submit Date Provider Last Modified By Organization Details Last Modified Time Details Appointments PROC 2024 09:45A M Uche Velásquez Jr, MD Not available Not available Not available Lab PSA, total + free, serum or plasma 2024 025 [email or web address] [facility] (Laboratory), [address] [place], [address], 12/01/2024 14:05:59 [email or web address] s, dipstick 2024 025 [email or web address] [facility], [address] [place] [address], [address], 11/20/2024 08:43:08 PSA, total + free, serum or plasma 2023 025 [facility] [address] [place], [address], 12/28/2024 03:25:12 PSA, serum or plasma 2023 024 [email or web address] [facility] (Lab), [address] [place] [address]y [address], [place], [address], 01/01/2024 07:47:38 Referral None recorded. Procedures None recorded. Surgeries None recorded. Imaging None recorded. Medication Orders None recorded. Patient TargetsNo targets recorded. Patient InstructionsNo instructions recorded. Reason for Referral None Reported. Results Created Date Observation Date Name Description Value Unit Range Abnormal Flag Note LastModifiedBy Organization Detail LastModifiedTime 11/17/1911/16/2024 urina lysis , dipst ick Leukocytes (reference range) negati ve Not Available [facility] [address] [place] [address], [address], 11/16/2024 16:12:18 11/17/19 25 11/16/2024 urina lysis , dipst ick Nitrite (reference range:) negati ve Not Available [address], [address], 11/16/2024 16:12:18 11/17/19 25 11/16/2024 urina lysis , dipst ick Urobilinogen (reference range) 0.2 Not Available [address], [address], 11/16/2024 16:12:18 11/17/19 25 11/16/2024 urina lysis , dipst ick Protein (reference range) negati ve Not Available [address], [address], 11/16/2024 16:12:18 11/17/19 25 11/16/2024 urina lysis , dipst ick pH (reference range 5-8.5) 5.5 Not Available [address], [address], 11/16/2024 16:12:18 11/17/19 25 11/16/2024 urina lysis , dipst ick Blood (reference range:) large Not Available [address], [address], 11/16/2024 16:12:18 11/17/19 25 11/16/2024 urina lysis , dipst ick Specific [place] (reference range) 1.015 Not Available [facility] [address] [place] [address], [address], 11/16/2024 16:12:18 11/17/19 25 11/16/2024 urina lysis , dipst ick Ketone (reference range) negati ve Not Available [facility] [address] [place] [address], [address], 11/16/2024 16:12:18 11/17/19 25 11/16/2024 urina lysis , dipst ick Bilirubin (reference range) negati ve Not Available [address], [address], 11/16/2024 16:12:18 11/17/19 25 11/16/2024 urina lysis , dipst ick Glucose (reference range) 1000 Not Available [address], [address], 11/16/2024 16:12:18 11/17/19 25 11/16/2024 urina lysis , dipst ick Color (reference range: yellow-brown ) Red Not Available [address], [address], 11/16/2024 16:12:18 11/21/19 25 11/20/2024 PSA, TOTAL (REFL EX TO FREE) note Unles s other owens noted testi ng perfo rmed at: [facility] [address] [place] [address] Mark mace MD Not Available [facility] (Pre-Op Clinic) [address] [place] [address] [place], [address], 11/22/2024 09:12:07 11/21/19 25 11/22/2024 PSA, TOTAL [...] ce of leidy gardner se. Not Available [facility] (Pre-Op Clinic) [address] [place] [address] [place], [address], 11/22/2024 09:12:07 11/21/1911/22/2024 PSA, TOTAL (REFL EX TO FREE) reflex criteria Commen t . The perce nt free PSA is perfo rmed on a refle x basis only when the total PSA is betwe en 4.0 and 10.0 ng/mL . Perfo rmed at: - [facility] [address] [id number] [facility] Lab Direc tor: Floyd otto PhD, Phone : [phone] Not Available [facility] (Pre-Op Clinic) [address] [place] [address] [place], [address], 11/22/2024 09:12:07 Result Notes None recorded. Problems Name Problem SNOMED Code Status Onset Date Resolution Date Notes Provider Name and Address Organization Details Recorded Time Hypertensive disorder 68506540 Active 2022 Not Available [facility] 3 14:10:26 Diabetes mellitus 28012989 Active 2022 Not Available [facility] 3 14:10:26 Hyperglycemia 49835103 Active 2022 Not Available [facility] 3 14:10:26 Arthritis 5419437 Active 2022 Not Available [facility] 3 14:10:26 Benign prostatic hyperplasia with outflow obstruction 712051096 Active Marti fraser, [place] - [facility] - [place] & [place] 3 09:53:36 Lesion of urinary bladder 569503049 Active Not Available [facility] 3 14:10:26 Problem Notes None recorded. Procedures Surgical History Date Name Laterality Status Provider Name and Address Organization Details Recorded Time 5 Bladder Irrigation completed Uche Velásquez Jr, MD [address], [address], [place], [address], [place] - [facility] [place] & [place] 11/20/2024 10:15:28 5 Cystoscopy-Male completed Uche Velásquez Jr, MD [address], [address], [place], [address], [place] [facility] [place] & [place] 11/17/2024 09:44:31 4 Cystoscopy-Male completed Uche Velásquez Jr, MD [address], [address], [place], [address], [place] [facility] [place] & [place] 07/08/2024 12:17:31 4 Cystoscopy-Male completed Uche Velásquez Jr, MD [address], [address], [place], [address], [place] [facility] [place] & [place] 12/25/2023 13:37:32 4 Cystoscopy-Male completed Uche Velásquez Jr, MD [address], [address], [place], [address], [place] [facility] [place] & [place] 11/14/2023 18:57:36 3 Cystoscopy-Male completed Uche Velásquez Jr, MD [address], [address], [place], [address], [place] [facility] [place] & [place] 07/05/2023 15:30:28 3 Cystoscopy-Male completed Uche Velásquez Jr, MD [address], [address], [place], [address], [facility] & [place] 03/15/2023 12:36:52 3 Cystoscopy-Male completed Uche Velásquez Jr, MD [address], [address], [place], [address], [facility] & [place] 02/07/2023 16:55:17 3 [facility] [place] 2023 11:41:08 3 Prostate Surgery completed [facility] & [place] 2023 11:41:08 3 Head or Neck Surgery completed [facility] & [place] 2023 11:41:08 Imaging Results None recorded. Procedure Notes None recorded. Medical Equipment None Reported. Allergies Allergen ID Allergen Name Allergen Category Reaction Reaction Severity Criticality Documentation Date Start Date Code Code System Note Provider Name and Address Organization Details Recorded Time 28246 codeine medicatio n Not available Not available Not available 02/06/2023 2670 RxNorm Other react ions and sever ities : 'Adve rse react ion to subst ance' . Marti fraser, [facility] & [place] 3 09:53:26 Medications Name Sig Start Date [...] Updated DateTime 11/16/2024 167.64 cm 24.2 kg/m2 84620.86 g 98.1 [degF] Matthew OLSON [facility] 11/16/2024 14:39:00 Date Recorded Body height Body mass index (BMI) Body weight Body temperature Provider Name and Address Organization Details Last Updated DateTime 11/20/2024 167.64 cm 24.2 kg/m2 78122.86 g 98.1 [degF] Barbra Sipple RAFAEL - W[facility] & [place] 11/20/2024 08:39:01 Date Recorded Body height Body mass index (BMI) Body weight Body temperature Provider Name and Address Organization Details Last Updated DateTime 12/22/2024 167.64 cm 24.2 kg/m2 73655.86 g 98.1 [degF] Matthew Bennett [facility] & [place] 12/22/2024 09:12:50 Date Recorded Body height Body mass index (BMI) Body weight Body temperature Provider Name and Address Organization Details Last Updated DateTime 12/25/2023 167.64 cm 24.2 kg/m2 61920.86 g 97.5 [degF] Harriet Teague [facility] & [place] 12/25/2023 13:02:54 Date Recorded Body height Body mass index (BMI) Body weight Provider Name and Address Organization Details Last Updated DateTime 07/08/2024 167.64 cm 24.2 kg/m2 63208.86 g April Wylie [facility] & [place] 07/08/2024 11:09:06 Social History Question Answer Notes LastModified by Organizat ion Details LastModified Time Tobacco Smoking Status Never [facility]oker [facility] [place] 02/06/2023 14:23:05 Do You Have An Advance Directive? No [email or web address] Information not available 05/02/2023 Are You Blind Or Do You Have Difficulty Seeing? Yes [email or web address] Information not available 05/02/2023 What Was The Date Of Your Most Recent Tobacco Screening? 11/20/2024 [email or web address] Information not available 11/20/2024 Are You Passively Exposed To Smoke? No [email or web address] Information not available 05/02/2023 How Much Tobacco Do You Smoke? No [email or web address] Information not available 05/02/2023 How Many Years Have You Smoked Tobacco? 0 [email or web address] Information not available 11/16/2024 Sex: Unknown Functional Status Question Answer Note LastModified by Organizat ion Details LastModified Time Do you use any illicit or recreational drugs? No [email or web address] Information not available 05/02/2023 What is your level of alcohol consumption? None [email or web address] Information not available 05/02/2023 Do you or have you ever used smokeless tobacco? Never used smokeless tobacco [email or web address] Information not available 05/02/2023 What is your exercise level? None [email or web address] Information not available 05/02/2023 Mental Status Question Answer Note LastModified by Organization D etails LastModified Time Do you feel stressed (tense, restless, nervous, or anxious, or unable to sleep at night)? [id number] [email or web address] Information not available 05/02/2023 Family History Relationship Description Onset Age of this Age Resolved Age Notes LastModified by Organization Details LastModified Time Mother Acute stroke [email or web address] Not lois ilable 12/22/2024 09:03:09 Mother Disorder [...] available 04/22/2023 10:20:52 Father Multiple organ failure [email or web address] Not available 12/22 09:03:09 Father Disorder of [...] available 04/22/2023 10:20:32 Medical History Condition Response Vision or Eye Problems Y Arthritis Y High Cholesterol Y Ear or Hearing Problems Y Kidney or Bladder Problems Y Diabetes Y Hypertension Y Past Encounters Encounter ID Performer Location Encounter Start Date Encounter Closed Date Diagnosis/Indication Diagnosis SNOMED-CT Code Diagnosis ICD10 Code Diagnosis Note [id number] Uche Velásquez Jr, MD [facility] [address] [address] 02/06/2023 14:02:19 02/06/2023 15:07:06 Incomplete emptying of urinary bladder due to benign prostatic hypertrophy 3157364277 74868 N40.1 patient with recent urinary retention. His [...] the Flomax and antibiotic . Bilateral hydronephrosis 56503937 N13.30 patient with bilateral hydronephr osis and hydrourete r on recent CT scan. This is likely due to bladder outlet obstructio n. His creatinine was normal at 1.2. Prostate s pecific antigen above reference range 314452040 R97.20 PSA drawn during episode of retention was elevated at 11.2. This is not surprising repeat a CT scan once his current symptoms have resolved. [id number] Uche Velásquez Jr, MD [facility] [address] [place] [address] 02/07/2023 07:57:25 02/07/2023 08:58:04 Incomplete emptying of urinary bladder due to benign prostatic hypertrophy 7944114001 68886 N40.1 patient with recent urinary retention. His [...] to the emergency room last evening and [facility] Fonseca catheter was replaced. He returns today and cystoscopy was performed showing a large amount of bladder tumors as well as prostate enlargemen t. We discussed the findings and will proceed with TURBT. Malignant neoplasm of urinary bladder 654804635 C67.9 patient with recent urinary retention. Cystoscopy [...] extensive amount of tumor in his bladder. [id number] Uche Velásquez Jr, MD [facility] [address] [place] [address] 02/19/2023 11:33:32 02/19/2023 11:55:55 Malignant neoplasm of urinary bladder 104571569 C67.9 recent cystoscopy at the time of [...] Benign pro static hyperplasia with outflow obstruction 041573980 N40.1 patient with recent urinary retention. He [...] month with a bladder scan. Bilateral hydronephrosis 91575635 N13.30 patient with bilateral hydronephr osis and hydrourete r on recent CT scan. This is likely due to bladder outlet obstructio n. His creatinine was normal at 1.2. will repeat a scan at follow-up to determine improvemen t. [id number] Uche Velásquez Jr, MD [facility] [address] [address] 02/27/2023 09:45:40 02/27/2023 11:22:56 Benign prostatic hyperplasia with outflow obstruction 897407038 N40.1 patient with recent urinary retention. patient [...] bladder scan. Malignant neoplasm of urinary bladder 445797249 C67.9 recent cystoscopy at the time of [...] ce cystoscopy in 3-4 months. Bilateral hydronephrosis 85844388 N13.30 patient with bilateral hydronephr osis and hydrourete r on recent CT scan. This is likely due to bladder outlet obstructio n. His creatinine was normal at 1.2. will repeat a scan in future to determine improvemen t. Yaya hematuria 78563419 5 R31.0 gross hematuria noted after his Fonseca catheter was removed last week. This necessitat ed an ER visit and Fonseca replacemen t. Urine is clear today and voiding trial performed. [id number] Uche Velásquez Jr, MD [facility] [address] [address] 03/15/2023 11:15:43 03/15/2023 12:17:48 Benign prostatic hyperplasia with outflow obstruction 801624091 N40.1 patient with recent urinary retention. patient [...] e. History of malignant neoplasm of bladder 748080458 Z85.51 patient with history of low-grade bladder cancer. Today cystoscopy showed no evidence of recurrence . Bilateral hydronephrosis 65259112 N13.30 patient with bilateral hydronephr osis and hydrourete r on previous CT scan. This is likely due to bladder outlet obstructio n. His creatinine was normal at 1.2. will repeat a scan in future to determine improvemen t. [id number] Giuliano Pereira MD [facility] [address] [place] [address] [place] [address] 03/11/2023 10:26:17 03/11/2023 14:03:19 Dermoid cyst of head 988571707 D36.7 [id number] Uche Velásquez Jr, MD [facility] [address] [address] 03/27/2023 09:09:49 03/27/2023 09:49:38 Benign prostatic hyperplasia with outflow obstruction 401522950 N40.1 patient with recent urinary retention. patient [...] 3+4 prostate cancer. Carcinoma of prostate 25 0263198 C61 TURP specimen shows 3 of 81 chips present with [place]'s 3+4=7 prostate cancer. We discussed that this is a low percentage of prostate cancer and watchful waiting recommende d for now. I will see him back with a PSA after his prostate has healed from the TURP. History of malignant neoplasm of bladder 211496095 Z85.51 patient with history of bladder cancer is low-grade. Repeat cystoscopy in 3 months. [id number] Giuliano Pereira MD [facility] [address] [place], [place] [address]y[place] [address] 04/25/2023 08:51:19 04/29/2023 15:52:17 [id number] Uche Velásquez Jr, MD [facility] [address] [address] 2023 11:35:36 2023 12:04:26 Benign prostatic hyperplasia with outflow obstruction 651217518 N40.1 Patient is status post TURP is now voiding much better. He is happy with his current state of urination. He is off of Flomax. His bladder scan today shows a residual of 81 cc. Carcinoma of prostate 25 6759035 C61 TURP specimen shows 3 of 81 chips present with [place]'s 3+4=7 prostate cancer. We discussed that this is a low percentage of prostate cancer and watchful waiting recommende d for now. I will see him back with a PSA after his prostate has healed from the TURP. we will consider prostate biopsy if PSA is elevated. History of malignant neoplasm of bladder 294001108 Z85.51 patient with history of bladder cancer is low-grade. Repeat cystoscopy in 1 months. [id number] Giuliano Pereira MD [facility] [address] [place] [address] 05/02/2023 08:53:56 05/03/2023 11:02:43 Postoperative visit [id number] Z09 [id number] [place] [address] 05/16/2023 09:27:20 05/16/2023 20:32:34 Postoperative visit 036275195 Z09 [id number] Uche Velásquez Jr, MD [address] [address] 07/05/2023 12:51:34 07/05/2023 13:30:22 Carcinoma of prostate 273379038 C61 TURP specimen shows 3 of 81 chips present with [place]'s 3+4=7 prostate cancer. PSA to be performed today. If it is significan tly elevated we discussed prostate biopsy. History of malignant neoplasm of bladder 226423998 Z85.51 patient with history of bladder cancer is low-grade. surveillan ce cystoscopy today showed no recurrence s. We will repeat in 3 months. [id number] Uche Velásquez Jr, MD [facility] [address] [address] 10/09/2023 13:27:50 10/09/2023 14:07:02 History of malignant neoplasm of bladder 398100859 Z85.51 patient with history of bladder cancer is low-grade. surveillan ce cystoscopy today showed no recurrence s. We will repeat in 3 months. Carcinoma of prostate 25 3223032 C61 TURP specimen shows 3 of 81 chips present with [place]'s 3+4=7 prostate cancer. Prostate bx 08/06 showed no cancer. PSA in 3 months. Benign pro static hyperplasia with outflow obstruction 326890664 N40.1 Patient is status post TURP is now voiding much better. He is happy with his current state of urination. He is off of Flomax. [id number] Uche Velásquez Jr, MD [facility] [address] [address] 12/25/2023 12:58:40 12/25/2023 13:36:08 Carcinoma of prostate 281241633 C61 TURP specimen shows 3 of 81 chips present with Dominic's 3+4=7 prostate cancer. Prostate bx 07/2023 showed no cancer. PSA in 3 months. Benign pro static hyperplasia without outflow obstruction 728035411 N40.0 patient with history of BPH with obstructio n. He underwent a TURP in February 2023 and is voiding well. History of malignant neoplasm of bladder 471860532 Z85.51 patient with history of bladder cancer is low-grade. surveillan ce cystoscopy today showed no recurrence s. We will repeat in 6 months. Prostate s pecific antigen above reference range 562505539 R97.20 patient is recent PSA was 6.9 with a free PSA putting him at a 23% chance of prostate cancer. Previous PSAs were 8.2, 10.1 and 12. PSA continues to decrease. Does have a history of stage TA 1 prostate cancer. Prostate biopsy in July 2023 showed no cancer. We will continue to monitor. [id number] Uche Velásquez Jr, MD [facility] [address] [address] 07/08/2024 11:00:54 07/08/2024 11:22:35 Prostate specific antigen above reference range 739154779 R97.20 Patient with history of elevated PSA. His most recent PSA was 6.2. Previous PSAs of 6.23 November 2023 10.1 in January 2023. Patient does have history of stage T1a prostate cancer. We continue to monitor. Biopsy after his TURP showed no evidence of cancer. Benign pro static hyperplasia without outflow obstruction 766560693 N40.0 patient with history of BPH with obstructio n. He underwent a TURP in February 2023 and is voiding well. History of malignant neoplasm of bladder 061024961 Z85.51 patient with history of bladder cancer is low-grade. surveillan ce cystoscopy today showed no recurrence s. We will repeat in 6 months. Carcinoma of prostate 25 8909170 C61 TURP specimen shows 3 of 81 chips present with [place]'s 3+4=7 prostate cancer. Prostate bx 07/2023 showed no cancer. PSA last week was 6.2. This is lower than previous PSAs. His prostate is large and likely cause with elevation. Will continue to monitor. [id number] Uche Velásquez Jr, MD [facility] [place] [address] 11/16/2024 14:33:27 11/16/2024 16:25:10 Blood in urine 82942017 R31.9 59-year-ol d white male with one-week history of gross hematuria. Cystoscopy today reveals a bleeding vessel at 9:00 a.m. position in the prostatic urethra neck. Fonseca catheter was placed to tamponade the bleeding. Discussed proceeding with cystoscopy and fulguratio n under general anesthesia . Cause of the bleeding likely from increased Valsalva from recent workouts. Prostate s pecific antigen above reference range 822132802 R97.20 Patient with history of elevated PSA. His most recent PSA was 6.2. Previous PSAs of 6.23 November 2023 10.1 in January 2023. Patient does have history of stage T1a prostate cancer. We continue to monitor. Biopsy after his TURP showed no evidence of cancer. Benign pro static hyperplasia without outflow obstruction 568192127 N40.0 patient with history of BPH with obstructio n. He underwent a TURP in February 2023 and is voiding well. Carcinoma of prostate 25 6793360 C61 TURP specimen shows 3 of 81 chips present with [place]ic's 3+4=7 prostate cancer. Prostate bx 07/2023 showed no cancer. PSA in June was 6.2. This is lower than previous PSAs. His prostate is large and likely cause of the elevation. Will continue to monitor. History of malignant neoplasm of bladder 766567762 Z85.51 patient with history of bladder cancer is low-grade. surveillan ce cystoscopy today showed no recurrence s. We will repeat in 6 months. [id number] Uche Velásquez Jr, MD [facility] [place] [address] 11/20/2024 08:27:39 11/20/2024 09:53:00 Prostate specific antigen above reference range 008677871 R97.20 Patient with history of elevated PSA. His most recent PSA was 6.2 on 06/2024. Previous PSAs of 6.23 November 2023 10.1 in January 2023. Patient does have history of stage T1a prostate cancer. We continue to monitor. Biopsy after his TURP showed no evidence of cancer. We will repeat PSA today. Yaya hematuria 46234459 5 R31.0 patient with recent gross hematuria [...] Benign pro static hyperplasia without outflow obstruction 694628502 N40.0 patient with history of BPH with obstructio n. He underwent a TURP in February 2023 and is voiding well. Carcinoma of prostate 25 4163870 C61 TURP specimen shows 3 of 81 chips present with [place]'s 3+4=7 prostate cancer. Prostate bx 07/2023 showed no cancer. PSA in June was 6.2. This is lower than previous PSAs. His prostate is large and likely cause of the elevation. recheck PSA today History of malignant neoplasm of bladder 319334038 Z85.51 patient with history of bladder cancer is low-grade. recent cystoscopy showed no recurrence s. We will repeat in 6 months. [id number] Stan Daugherty M.D [facility] [address] 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 Uche Velásquez Jr, MD [address], [address], [place], [address], [facility] & [place] 12/25/2023 13:40:45 07/08/2024 text/html Patient is a [...] that time. Uche Velásquez Jr, MD [address], [address], [place], [address], [facility] & [place] 07/08/2024 12:20:21 11/16/2024 text/html 59-year-old whit e [...] Jr, MD [address], [address], [place], [address], [facility] & [place] 01/13/2025 11:23:24 11/20/2024 text/html 59-year-old whit e [...] noted recent cystoscopy. Uche Velásquez Jr, MD [address] [place] [address], [address], [place], [address], [facility] & [place] 11/20/2024 10:19:39 12/22/2024 text/html Patient presents today [...] spontaneously with blood-tinged Irrigation. Stan Daugherty M.D [address] [place] [address], [address], [place], [address], [facility] & [place] 12/22/2024 14:16:34
--- NOTE | 2025-03-09 15:42 | ED_ITS ---
<Statement entered by Nicolas Bocanegra MD - 03/09/25 19:09> I was consulted by the BANG, and we discussed the complexity of the problems being addressed. I approved the treatment and management plan for this patient's care in the emergency department, thus performing a substantive portion of the medical decision making. Nicolas Bocanegra MD Discharge Plan Disposition Patient Disposition: Home, Self-Care Condition: Good Prescriptions Prescriptions: No Action atorvastatin 40 mg tablet 40 mg PO HS Qty: 90 1RF insulin aspart U-100 [Novolog FlexPen U-100 Insulin] 100 unit/mL (3 mL) insulin pen 2 - 15 unit SQ ACHS Qty: 15 5RF Rx Instructions: Please check your blood sugar 30 minutes prior to eating 3 times a day. Please also check blood sugar before going to sleep. If blood sugar 151 to 200 mg/dL administer 2 units subcu short acting insulin If blood sugar 201 to 250 mg/dL administer 5 units subcu short acting insulin If blood sugar 251 to 300 mg/dL administer 8 units subcu short acting insulin If blood sugar 301 to 350 mg/dL administer 10 units subcu short acting insulin If blood sugar 351 to 400 mg/dL administer 12 units subcu short acting i nsulin If blood sugar over 400 mg/dL administer 12 units subcu short acting insulin and call doctor for further instructions. insulin glargine [Lantus Solostar U-100 Insulin] 100 unit/mL (3 mL) insulin pen 20 unit SQ DAILY Qty: 15 2RF lisinopril-hydrochlorothiazide 20-12.5 mg tablet 2 tab PO DAILY Qty: 90 2RF finasteride 5 mg tablet 5 mg PO Patient Comments: TAKE 1 TABLET BY MOUTH ONCE DAILY bupropion HCl 150 mg tablet sustained-release 12 hr 150 mg .ROUTE BID Qty: 60 2RF Rx Instructions: 150 mg twice a day; glipizide 10 mg tablet extended release 24hr See Rx Instructions .ROUTE BID Qty: 60 2RF Dose Instruction: Take 1 tablet by mouth once daily Rx Instructions: Take 1 tablet by mouth once daily twice a day; Ozempic 0.25 mg or 0.5 mg (2 mg/3 mL) pen injector 0.5 mg SQ WEEKLY Qty: 3 4RF Rx Instructions: for 4 weeks (DME) lancets [Accu-Chek Softclix Lancets] Misc See Rx Instructions .ROUTE .MEDSUPPLY Qty: 100 2RF Rx Instructions: As directed (DME) blood-glucose meter [Accu-Chek Guide Glucose Meter] Misc See Rx Instructions .ROUTE .MEDSUPPLY Qty: 1 0RF Rx Instructions: As directed (DME) Accu-Chek Guide test strips Strip See Rx Instructions .ROUTE .MEDSUPPLY Qty: 50 2RF Rx Instructions: Test blood sugar 2x a day. (DME) pen needle, diabetic 32 gauge x 5/32 needle See Rx Instructions .ROUTE .MEDSUPPLY Qty: 1200 0RF Rx Instructions: As directed Referrals Follow up/Referrals: Iraida Reese APRN [Primary Care Provider, Family Practice] - See instructions Diego Guevara II, MD [Staff Physician, Gastroenterology] - See instructions Activity Restrictions/Add. Instructions Additional Instructions/Restrictions: As we discussed you need to take 10 capfuls of MiraLAX in 32 ounce of water and/or Gatorade per the sheet that I gave you. If you do not have success with that you may try 1 at home enema. If you have any increasing pain intractable nausea vomiting return to the emergency department. I am referring you to gastroenterology for ongoing management care. Clinical Impressions Clinical Impression: Constipation Instructions Patient Instructions: DI for Acute Abdominal Pain Print Language Print Language: [place] Discharge ED Provider: Nicolas Bocanegra General Adult HPI General Chief complaint: Abdominal Pain Stated complaint: constipation Time Seen by Provider: 03/09/25 15:42 Mode of Arrival: Ambulatory Source of Information: Patient Description of Symptoms (Recalled from ER Triage Doc. by RN): Patient presents to ED with lower left abd pain that started 03/08/25 morning. Patient was seen in the ED 03/08 around 02:00am for constipation. Patient was able to have x1 bowel movement. patient states pain has increased and unable to have another bowel movement. Patient denies fevers at home. History of Present Illness HPI narrative: Patient presents for abdominal discomfort. Patient was seen and examined yesterday for this and was found to have a fairly large sigmoid stool burden with liquid stool in the remainder of his colon. No other acute processes were found. Patient has been on Ozempic for approximately 2 months as well as having type 2 diabetes mellitus. Patient's Ozempic dose as well as his diabetic medications were all recently increased. Patient was deemed safe to go home with instructions for MiraLAX disimpaction. Patient had a bowel movement in the emergency department prior to discharge. He denies inability to tolerate oral intake he reports some nausea but no vomiting diarrhea fever chills hemoptysis hematochezia melena hematemesis hematuria dysuria. Related Data Home Medications ?Medication ?Instructions ?Recorded ?Confirmed finasteride 5 mg tablet 5 mg PO 01/29/25 03/05/25 Previous Rx's ?Medication ?Instructions ?Recorded blood-glucose meter (Accu-Chek #1 ea 04/16/24 Guide Glucose Meter) lancets (Accu-Chek Softclix #100 ea 04/16/24 Lancets) atorvastatin 40 mg tablet 40 mg PO HS #90 tabs 5 insulin aspart U-100 100 unit/mL 2 - 15 unit (0.02 - 0 .15 mL) SQ 12/14/24 (3 mL) subcutaneous pen (Novolog ACHS hyperglycemia #1 5 mL FlexPen U-100 Insulin aspart) insulin glargine 100 unit/mL (3 20 unit (0.2 mL) SQ DA DASHAWN Diabetes 12/14/24 mL) subcutaneous pen (Lantus #15 mL Solostar U-100 Insulin) lisinopril 20 2 tab PO DAILY High blood pr essure 12/14/24 mg-hydrochlorothiazide 12.5 mg #90 tabs tablet blood sugar diagnostic (Accu-Chek #50 ea 12/25/24 Guide test strips) pen needle, diabetic 32 gauge x #1,200 ea 01/28/25/32 bupropion HCl 150 mg tablet,12 hr 150 mg .Route BID #6 0 ea 03/05/25 sustained-release glipizide 10 mg tablet, extended See Rx Instructions . Route BID #60 03/05/25 release 24 hr tabs semaglutide 0.25 mg or 0.5 mg (2 0.5 mg (0.736 mL) SQ WEEKLY #3 mL 03/05/25 mg/3 mL) subcutaneous pen injector (Ozempic) Allergies Allergy/AdvReac Type Severity Reaction Status Date / Time codeine AdvReac Intermediate Rash Verified 03/05/25 13:07 [facility] Disclaimer: The information contained in this section may have been updated after the patient was seen, as this information can be updated by other users. Medical History Contact dermatitis and eczema Acute pancreatitis Eyelid laceration, left Encounter for screening colonoscopy Viral upper respiratory tract infection Broken tooth Fonseca catheter in place Bladder cancer Bladder CA in situ Bladder cancer Constipation High cholesterol HTN (hypertension) Diabetes Constipation Surgical History History of prostate surgery Family History Grandmother Diabetes Family history of myocardial infarction Mother Diabetes Family history of myocardial infarction Father Diabetes Grandfather Diabetes Family history of myocardial infarction Social History Smoking Status: Never smoker alcohol intake: former substance use type: denies use current occupational status: employed Travel in the last 8 weeks?: None caffeine: Yes Have you lived/traveled outside US in past 30 days?: No Contact w/someone who lives/traveled outside US past 30 days?: No Exposure to someone with infectious disease in past 14 days?: No Do you have a fever (greater than 100.4 F or 38 C)?: No Have you tested positive for COVID-19?: No Exposed to someone with COVID-19 in past 14 days?: No Do you have a sore throat?: No Do you have a cough?: No Do you have any weakness?: No Do you have any diarrhea?: No Are you experiencing any unusual bleeding?: No Do you have any muscle aches/pain?: No Do you have any abdominal pain?: No Are you experiencing loss of taste or smell?: No Other Medical History Have you received the Flu Vaccine for this season: No Have you received the Pneumonia Vaccine: No ROS Obtained: Yes Systems reviewed as appropriate & no additional complaints except as documented Physical Exam General General appearance: alert and in no apparent distress Respiratory Respiratory exam: Present normal lung sounds bilaterally Cardiovascular Cardiovascular exam: Present regular rate Neurological Exam Neurological exam: Present alert and oriented X3 Medical Decision Making Medical Records Medical records reviewed: Yes I reviewed the patient's medical records. Screening: Per USPSTF and CDC recommendations, given the prevalence of disease in our region, it is our hospital?s policy to screen for HIV and viral Hepatitis for all patients aged 18 and over and those with ongoing risk factors. Eduardo Inquiry Pt receiving controlled substance: No Vital Signs: 03/09/25 15:26 03/09/25 16:14 Temperature 98.6 F 98.7 F Temperature Source Oral Oral Pulse Rate 84 Pulse Rate [Right Brachial] 90 Respiratory Rate 20 20 Blood Pressure 118/64 Blood Pressure [Right Arm] 121/61 Blood Pressure Mean [Right Arm] 81 Blood Pressure Source Automatic Cuff Blood Pressure Source [Right Arm] Automatic Cuff Blood Pressure Position Sitting Blood Pressure Position [Right Arm] Sitting 02 Sat by Pulse Oximetry 98 Oxygen Delivery Method Room Air Room Air Lab Data Lab results reviewed: Yes I reviewed the patient's lab results. Medical Decision Narrative: In summary patient is a 59-year-old male who presents to the emergency department for evaluation of abdominal pain/cramping. Patient is hemodynamically stable with blood pressure 121/61 pulse 90 respiratory rate 20 temperature is 98.6 O2 sats 90% on room air upon arrival. Physical exam is remarkable for mild abdominal discomfort on palpation but there is no rebound or guarding or rigidity. Bowel sounds normal active.. Differential diagnosis includes constipation versus gastroenteritis etc. Initial workup was considered however patient had a full extensive workup less than 24 hours ago and he has no new symptoms thus further workup deferred. Initial interventions were considered however patient has no nausea no vomiting no fever thus interventions are deferred. I had an interactive and shared decision-making discussion with the patient regarding what he did in the 24 hours and attempts to follow the disimpaction instructions. Patient states that he drank 216 ounce bottles of water that had 1 cap of MiraLAX split between the 2. He did not have any further bowel movements since going home. I have been gave him the disimpaction sheet and went over the actual procedure to drink 10 capfuls of MiraLAX in 32 ounces of water all at 1 time. I have instructed the patient that should that not be successful that he may need to see gastroenterology for further workup. Via patient directed decision making discharge patient was comfortable with no further ALVARADO and going home to try the disimpaction method with close follow-up with his PCP and referral to GI if necessary. Patient was given strict return precautions and patient verbalized understanding. Critical Care Critical Care Time Critical Care Time: No
[2025-03-09 16:14] VITALS: BP 118/64; PULSE 84; RESP 20; TEMP 37.1; O2SAT 99
== END 2025-03-09 16:16 | disposition home or self-care (01) ==
PROVIDERS: Emergency Provider Emergency Medicine; PCP Family Medicine
DX: R10.32 Left lower quadrant pain (principal); K59.00 Constipation, unspecified
CPT/HCPCS: 99283

== ENCOUNTER 2025-04-30 10:33 | Emergency (ER) | payer MEDICAID, SELFPAY ==
[2025-04-30] VITALS (8 sets, daily range): BP systolic 98–156; BP diastolic 57–81; PULSE 67–85; RESP 15–20; TEMP 36.4–36.7; O2SAT 96–98; BMI 29.8
--- OUTSIDE RECORDS SUMMARY | 2025-04-30 10:41 | XMS_ITS | Encounter Summary ---
Author Organization Healthcare Address [address] [facility] [facility] [place] [address] Care Team Providers Care Pelt Dropper Name Role Phone Justin Morales MD Primary Care Provider [phone] Encounter Details Date Type Department Care Team (Late st Contact Info) Description 01/31/2023 Community [facility] [address] [place] [address] Kayla Monroy DO [address] [place] [address] Increased prostate specific antigen (PSA) velocity (Primary [...] Primary documented in this encounter Care Teams Pelt Dropper Relationship Specialty Start Date End Date Justin Morales MD [address] [facility] [place] [address] PCP - General 01/27/21 documented as of this encounter
--- OUTSIDE RECORDS SUMMARY | 2025-04-30 10:41 | XMS_ITS | Clinical Summary ---
Author Organization Healthcare Address [facility] [place] [address] Care Team Providers Care Face Boss Name Role Phone Justin Morales MD Primary Care Provider [phone] Social History Tobacco Use Types Packs/Day Years [...] (2 of 2 - PCV) 09/07/2021 09/07/2020 [id number] Vaccine (3 - season) 2024 07/21/2021, 06/22/2021 [facility]-Influenza Vaccine (#1) 05/17/202506/22, 09/19/2020, 06/23/2019 [facility]-DTaP,Tdap,and Td Vaccine s (3 [...] age to complete this topic Care Teams Face Boss Relationship Specialty Start Date End Date Justin Morales MD [address] [place] [address] PCP - General 01/27/21
--- NOTE | 2025-04-30 10:42 | ECG_ITS ---
APPROVED REPORT Exam: Resting ECG HR:80 bpm ECG Measurements Heart Rate 80 AXES AZ 186 P 49 QRSd 96 QRS -40 QT 367 T 16 QTc 403 Conclusion SINUS RHYTHM LEFT AXIS DEVIATION [QRS AXIS < -30] INFERIOR MYOCARDIAL INFARCTION , PROBABLY OLD [40+ ms Q WAVE AND/OR ST/T ABNORMALITY IN II/aVF] ANTEROLATERAL MYOCARDIAL INFARCTION , OF INDETERMINATE AGE [40+ ms Q WAVE IN I/aVL/V3-V6] ABNORMAL ECG UNCONFIRMED REPORT Electronically signed by : ROSITA ZARATE, 05/01/2025 06:55:24
[2025-04-30 11:17] LABS: Hematocrit 41.9 % (42.0-52.0); Hemoglobin 14.4 g/dL (14.1-18.0); Immature Granulocytes % 0.3 %; Mean Corpuscular HGB Conc 34.4 g/dL (31.8-35.4); Mean Corpuscular Hemoglobin 30.4 pg (27.0-31.2); Mean Corpuscular Volume 88.4 fl (80-94); Nucleated Red Blood Cells % 0 %; Platelet Count 192 K/mm3 (142-424); Red Blood Count 4.74 M/mm3 (4.60-6.20); Red Cell Distribution Width-SD 42.0 fL; White Blood Count 6.3 K/mm3 (4.8-10.8)
[2025-04-30 11:18] LABS: Albumin Level 4.6 g/dl (3.5-5.0); Chloride 104 mmol/L (98-107)
[2025-04-30 11:19] LABS: Potassium 3.7 mmoL/L (3.5-5.1); Sodium 134 mmol/L (136-145)
[2025-04-30 11:21] LABS: Alanine Aminotransferase 42 U/L (12-78); Aspartate Amino Transferase 45 U/L (17-59); Blood Urea Nitrogen 40 mg/dl (9-20); Creatinine Clearance Estimated 64 mL/min (50-200); Creatinine,Serum 1.50 mg/dl (0.66-1.25); Estimated Glomerular Filt Rate 48 ml/min (>60); GFR (African American) 58 ML/MIN (>60)
[2025-04-30 11:22] LABS: Albumin/Globulin Ratio 1.8 (1.1-1.8); Alkaline Phosphatase 75 U/L (38-126); Anion Gap 16.7 mEq/L (5-15); Bilirubin,Total 0.8 mg/dl (0.2-1.3); Calcium 9.4 mg/dl (8.4-10.2); Carbon Dioxide 17 mmol/L (22.0-30.0); Globulin 2.6 g/dL (1.3-3.2); Glucose 199 mg/dl (74-100); Magnesium 1.6 mg/dl (1.6-2.3); Total Protein,Serum 7.2 g/dl (6.3-8.2)
[2025-04-30 11:36] LABS: Troponin I < 0.01 ng/ml (0.00-0.034)
[2025-04-30] MEDS: 0.9 % SODIUM CHLORIDE 1000ML 1,000 ML 999 ML IV (11:39)
[2025-04-30] MEDS: ONDANSETRON 4MG/2ML VIAL 4 MG IV (11:39)
[2025-04-30 11:53] LABS: Thyroid Stimulating Hormone 0.53 uIU/mL (0.465-4.68)
--- NOTE | 2025-04-30 13:00 | HMH.EDGENADL ---
Discharge Plan Disposition Patient Disposition: Home, Self-Care Condition: Good Prescriptions Prescriptions: No Action bupropion HCl 150 mg tablet sustained-release 12 hr 150 mg .ROUTE BID Qty: 60 2RF Rx Instructions: 150 mg twice a day; insulin glargine [Lantus Solostar U-100 Insulin] 100 unit/mL (3 mL) insulin pen 25 unit SQ DAILY Qty: 15 2RF (DME) lancets [Accu-Chek Softclix Lancets] Misc See Rx Instructions .ROUTE .MEDSUPPLY Qty: 100 2RF Rx Instructions: As directed (DME) blood-glucose meter [Accu-Chek Guide Glucose Meter] Misc See Rx Instructions .ROUTE .MEDSUPPLY Qty: 1 0RF Rx Instructions: As directed (DME) Accu-Chek Guide test strips Strip See Rx Instructions .ROUTE .MEDSUPPLY Qty: 50 2RF Rx Instructions: Test blood sugar 2x a day. (DME) pen needle, diabetic 32 gauge x 5/32 needle See Rx Instructions .ROUTE .MEDSUPPLY Qty: 1200 0RF Rx Instructions: As directed glipizide 10 mg tablet extended release 24hr See Rx Instructions .ROUTE BID Qty: 60 2RF Dose Instruction: Take 1 tablet by mouth once daily Rx Instructions: Take 1 tablet by mouth once daily twice a day; lisinopril-hydrochlorothiazide 20-12.5 mg tablet See Rx Instructions .ROUTE .COMPLEX Qty: 90 2RF Dose Instruction: TAKE TWO TABLETS BY MOUTH EVERY DAY FOR HIGH BLOOD PRESSURE Rx Instructions: TAKE TWO TABLETS BY MOUTH EVERY DAY FOR HIGH BLOOD PRESSURE finasteride 5 mg tablet 5 mg PO DAILY Qty: 90 1RF atorvastatin 40 mg tablet 40 mg PO HS Qty: 90 1RF Ozempic 0.25 mg or 0.5 mg (2 mg/3 mL) pen injector 0.5 mg SQ WEEKLY Qty: 3 4RF Rx Instructions: for 4 weeks insulin aspart U-100 [Novolog FlexPen U-100 Insulin] 100 unit/mL (3 mL) insulin pen 2 - 15 unit SQ ACHS Qty: 15 5RF Rx Instructions: Please check your blood sugar 30 minutes prior to eating 3 times a day. Please also check blood sugar before going to sleep. If blood sugar 151 to 200 mg/dL administer 2 units subcu short acting insulin If blood sugar 201 to 250 mg/dL administer 5 units subcu short acting insulin If blood sugar 251 to 300 mg/dL administer 8 units subcu short acting insulin If blood sugar 301 to 350 mg/dL administer 10 units subcu short acting insulin If blood sugar 351 to 400 mg/dL administer 15 units subcu short acting insulin If blood sugar over 400 mg/dL administer 15 units subcu short acting insulin and call doctor for further instructions. max daily 45 units Referrals Follow up/Referrals: Iraida Reese APRN [Primary Care Provider, Family Practice] - See instructions Activity Restrictions/Add. Instructions Additional Instructions/Restrictions: Follow-up with your primary care provider in 1 week to get repeat labs drawn to evaluate and make sure that your creatinine improves. Return to the emergency department for any acute worsening chest pain, weakness, lightheadedness or if you have any other acute concerns. Clinical Impressions Clinical Impression: Light-headedness, WU (acute kidney injury) Stand Alone Forms Stand Alone Forms: Work/School Release Instructions Patient Instructions: DI for Dizziness-Nonvertigo, DI for Acute Kidney Injury Print Language Print Language: [place] Discharge ED Provider: Amisha German Adult HPI General Chief complaint: Dizziness Stated complaint: dizzy,heart racing,diarrhea,nauseated Time Seen by Provider: 04/30/25 11:04 Mode of Arrival: Ambulatory Source of Information: Patient Description of Symptoms (Recalled from ER Triage Doc. by RN): pt presents to the ED with dizziness x2 days. pt reports that he was helping his friend move stuff yesterday when he started to have heart racing and shortness of breath that lasted for a few minutes. pt has had a loss of appeite over the past week. pt has had nausea everytime he tries to eat. pt states that he has had watery diarrhea that started this morning. History of Present Illness HPI narrative: Patient is a 69-year-old gentleman with a past medical history of diabetes who presented to the emergency department with prerenal state 2 days. Patient reports his dizziness as lightheadedness. Patient states that he had a moment of heart racing which only lasted for a few minutes. Patient states he never had chest pain. Patient denies any shortness of breath. Patient is a report having some diarrhea that started today. Patient has not had any recent admissions to the hospital. Patient has not been on any recent antibiotics. Patient denies any abdominal pain. Patient denies any fevers. Related Data Previous Rx's ?Medication ?Instructions ?Recorded blood-glucose meter (Accu-Chek #1 ea 04/16/24 Guide Glucose Meter) lancets (Accu-Chek Softclix #100 ea 04/16/24 Lancets) blood sugar diagnostic (Accu-Chek #50 ea 12/25/24 Guide test strips) pen needle, diabetic 32 gauge x #1,200 ea 01/28/25 bupropion HCl 150 mg tablet,12 hr 150 mg .Route BID #60 ea 03/05/25 sustained-release insulin glargine 100 unit/mL (3 25 unit (0.25 mL) SQ DAILY 03/17/25 mL) subcutaneous pen (Lantus Diabetes #15 mL Solostar U-100 Insulin) glipizide 10 mg tablet, extended See Rx Instructions .Route BID #60 04/15/25 release 24 hr tabs atorvastatin 40 mg tablet 40 mg PO HS #90 tabs 04/26/25 finasteride 5 mg tablet 5 mg PO DAILY #90 tabs 04/26/25 insulin aspart U-100 100 unit/mL 2 - 15 unit (0.02 - 0.15 mL) SQ 04/26/25 (3 mL) subcutaneous pen (Novolog ACHS hyperglycemia #15 mL FlexPen U-100 Insulin aspart) lisinopril 20 See Rx Instructions .Route 04/26/25 mg-hydrochlorothiazide 12.5 mg .COMPLEX #90 tabs tablet semaglutide 0.25 mg or 0.5 mg (2 0.5 mg (0.736 mL) SQ WEEKLY #3 mL 04/26/25 mg/3 mL) subcutaneous pen injector (Ozempic) Allergies Allergy/AdvReac Type Severity Reaction Status Date / Time codeine AdvReac Intermediate Rash Verified 03/17/25 13:38 [facility] Disclaimer: The information contained in this section may have been updated after the patient was seen, as this information can be updated by other users. Medical History Contact dermatitis and eczema Acute pancreatitis Eyelid laceration, left Encounter for screening colonoscopy Viral upper respiratory tract infection Broken tooth Fonseca catheter in place Bladder cancer Bladder CA in situ Bladder cancer Constipation High cholesterol HTN (hypertension) Diabetes Constipation Surgical History History of prostate surgery Family History Grandmother Diabetes Family history of myocardial infarction Mother Diabetes Family history of myocardial infarction Father Diabetes Grandfather Diabetes Family history of myocardial infarction Social History Smoking Status: Never smoker alcohol intake: former substance use type: denies use current occupational status: employed Travel in the last 8 weeks?: None caffeine: Yes Have you lived/traveled outside US in past 30 days?: No Contact w/someone who lives/traveled outside US past 30 days?: No Exposure to someone with infectious disease in past 14 days?: No Do you have a fever (greater than 100.4 F or 38 C)?: No Have you tested positive for COVID-19?: No Exposed to someone with COVID-19 in past 14 days?: No Do you have a sore throat?: No Do you have a cough?: No Do you have any weakness?: No Do you have any diarrhea?: No Are you experiencing any unusual bleeding?: No Do you have any muscle aches/pain?: No Do you have any abdominal pain?: No Are you experiencing loss of taste or smell?: No Other Medical History Have you received the Flu Vaccine for this season: No Have you received the Pneumonia Vaccine: No ROS Obtained: Yes All systems reviewed & no additional complaints except as documented and Yes Systems reviewed as appropriate & no additional complaints except as documented Physical Exam General General appearance: alert and in no apparent distress Head Head exam: atraumatic, normocephalic and normal inspection Eye Eye exam: Present normal appearance, PERRL and EOMI; Absent scleral icterus ENT ENT exam: Present normal exam and normal external ear exam Neck Neck exam: Present normal inspection and full ROM Chest Chest inspection: Present normal inspection and symmetric chest wall rise Respiratory Respiratory exam: Present normal lung sounds bilaterally; Absent respiratory distress or wheezes Cardiovascular Cardiovascular exam: Present regular rate, normal rhythm and normal heart sounds Abdominal Exam Abdominal exam: Present soft and distention; Absent tenderness, guarding or rebound Extremities Exam Extremities exam: Present normal inspection and full ROM Back Exam Back exam: Present normal inspection and full ROM Neurological Exam Neurological exam: Present alert and oriented X3 Psychiatric Psychiatric exam: Present normal affect and normal mood Skin Skin exam: Present warm and dry Medical Decision Making Medical Records Screening: Per USPSTF and CDC recommendations, given the prevalence of disease in our region, it is our hospital?s policy to screen for HIV and viral Hepatitis for all patients aged 18 and over and those with ongoing risk factors. Eduardo Inquiry Pt receiving controlled substance: No Vital Signs: 04/30/25 10:44 04/30/25 10:53 04/30/25 11:01 Temperature 97.6 F 97.6 F Temperature Source Oral Oral Pulse Rate 85 74 Pulse Rate [Right] 85 Respiratory Rate 16 16 18 Blood Pressure 156/81 H 108/60 L Blood Pressure [Right Arm] 156/81 H Blood Pressure Mean [Right Arm] 106 Blood Pressure Source Automatic Cuff Blood Pressure Source [Right Arm] Automatic Cuff Blood Pressure Position Supine Blood Pressure Position [Right Arm] Supine 02 Sat by Pulse Oximetry 97 97 96 Oxygen Delivery Method Room Air Room Air 04/30/25 11:30 04/30/25 12:01 04/30/25 12:30 Temperature Temperature Source Pulse Rate 70 Pulse Rate [Right] Respiratory Rate 15 20 20 Blood Pressure 98/67 L 125/57 L 109/61 L Blood Pressure [Right Arm] Blood Pressure Mean [Right Arm] Blood Pressure Source Blood Pressure Source [Right Arm] Blood Pressure Position Blood Pressure Position [Right Arm] 02 Sat by Pulse Oximetry 96 96 Oxygen Delivery Method 04/30/25 13:00 04/30/25 14:58 Temperature 98.0 F Temperature Source Oral Pulse Rate 67 Pulse Rate [Right] Respiratory Rate 18 16 Blood Pressure 100/58 L 103/68 L Blood Pressure [Right Arm] Blood Pressure Mean [Right Arm] Blood Pressure Source Automatic Cuff Blood Pressure Source [Right Arm] Blood Pressure Position Blood Pressure Position [Right Arm] 02 Sat by Pulse Oximetry Oxygen Delivery Method Room Air Lab Data Lab results reviewed: Yes I reviewed the patient's lab results. Lab Results 04/30/25 10:46: WBC 6.3, RBC 4.74, Hgb 14.4, Hct 41.9 L, MCV 88.4, MCH 30.4, MCHC 34.4, RDW 12.9, Plt Count 192, MPV 12.7 H, Neut % (Auto) 69.2, Lymph % (Auto) 16.0, [place] % (Auto) 11.8 H, Eos % (Auto) 2.5, Baso % (Auto) 0.2, Neut # (Auto) 4.4, Lymph # (Auto) 1.0, [place] # (Auto) 0.8, Eos # (Auto) 0.2, Baso # (Auto) 0.0, Sodium 134 L, Potassium 3.7, Chloride 104, Carbon Dioxide 17 L, Anion Gap 16.7 H, BUN 40 H, Creatinine 1.50 H, Estimated Creat Clear 64, Estimated GFR 48 L, Est GFR ( Amer) 58 L, Glucose 199 H, Calcium 9.4, Magnesium 1.6, Total Bilirubin 0.8, AST 45, ALT 42, Alkaline Phosphatase 75, Troponin I < 0.01, Total Protein 7.2, Albumin 4.6, Globulin 2.6, Albumin/Globulin Ratio 1.8, Lipase 117, TSH 0.53, Free T4 1.18 04/30/25 13:49: Troponin I 0.01 04/30/25 10:46 04/30/25 10:46 Orders (Tests/Meds): ED MEDICATIONS Discontinued Medications Generic Name Dose Route Start Last Admin Trade Name Freq PRN Reason Stop Dose Admin Sodium Chloride 1,000 mls @ 999 mls/hr 04/30/25 11:11 04/30/25 11:39 Sod Chlor 0.9% 1000ml Bag IV 04/30/25 12:11 999 mls/hr .Q1H1M ONE Administration Ondansetron HCl 4 mg 04/30/25 11:11 04/30/25 11:39 Ondansetron 4mg/2ml Vial IV 04/30/25 11:12 4 mg ONCE ONE Administration ORDERS Category Date Time Status CBC w/Auto Diff [Complete Blood Count Auto Diff] Stat Lab 04/30/25 10:46 Completed CMP [Comprehensive Metabolic Panel] Stat Lab 04/30/25 10:46 Completed Free T4 (Free Thyroxine) Stat Lab 04/30/25 10:46 Completed Lipase Stat Lab 04/30/25 10:46 Completed MAG [Magnesium] Stat Lab 04/30/25 10:46 Completed TSH [Thyroid Stimulating Hormone] Stat Lab 04/30/25 10:46 Completed Trop I [Troponin I] Stat Lab 04/30/25 10:46 Completed Troponin I Q3H Lab 04/30/25 13:49 Completed Medical Decision Narrative: Patient is an otherwise healthy 59-year-old gentleman with a past medical history of diabetes referred to the emergency department with lightheadedness for 2 days. On arrival, patient was hemodynamically stable with unremarkable vital signs. Differential includes but not limited to: Dehydration, electrolyte abnormalities, ACS/PA, arrhythmia, amonst others. Patient's labs were reviewed and interpreted by myself: CBC showed mild leukocytosis, hemoglobin stable. CMP showed mildly elevated creatinine of 1.5 from baseline of 1.0. Patient had a mild anion gap elevation at 16. Patient's thyroid studies were unremarkable. Initial troponin less than 0.01, second troponin 0.01. Patient's EKG was reviewed and interpreted by myself and showed normal sinus rhythm at [address] or T wave changes concerning for ischemia. Patient was given IV fluids in the emergency department, and on repeat evaluation, patient was able to ambulate without difficulties. Patient reported no further lightheadedness at this time. Given patient's otherwise unremarkable workup I felt the patient was appropriate for discharge home. Return precautions were discussed. Patient was recommended to follow-up with his pharmacy provider to get repeat labs given his elevated creatinine today. Critical Care Critical Care Time Critical Care Time: No
[2025-04-30 13:12] LABS: Lipase 117 U/L (23-300)
[2025-04-30 13:27] LABS: Free T4 (Free Thyroxine) 1.18 ng/dl (0.78-2.19)
[2025-04-30 14:33] LABS: Troponin I 0.01 ng/ml (0.00-0.034)
== END 2025-04-30 15:07 | disposition home or self-care (01) ==
PROVIDERS: Emergency Provider Student in an Organized Health Care Education/Training Program; PCP Family Medicine
DX: R42 Dizziness and giddiness (principal); R11.0 Nausea; N17.9 Acute kidney failure, unspecified
CPT/HCPCS: 80053; 83690; 83735; 84439; 84443; 84484; 85025; 93005; 96361; 96374; 99284; J2405; J7030

== ENCOUNTER 2025-05-13 09:44 | Outpatient (CLI) | payer MEDICAID, SELFPAY ==
--- OUTSIDE RECORDS SUMMARY | 2025-05-13 09:51 | XMS_ITS | Encounter Summary ---
Author Organization Healthcare Address [address] [place] [address] Care Team Providers Care Batch Freezer Operator Name Role Phone Justin Morales MD Primary Care Provider [phone] Encounter Details Date Type Department Care Team (Late st Contact Info) Description 01/31/2023 Community [facility] [address] [place] [address] Kayla Monroy DO [address] [place] [address] Increased prostate specific antigen (PSA) velocity (Primary [...] Primary documented in this encounter Care Teams Batch Freezer Operator Relationship Specialty Start Date End Date Justin Morales MD [address] [facility] [place] [address] PCP - General 01/27/21 documented as of this encounter
--- OUTSIDE RECORDS SUMMARY | 2025-05-13 09:51 | XMS_ITS | Clinical Summary ---
Author Organization Healthcare Address [facility] [place] [address] Care Team Providers Care Programmer Analyst Consultant Name Role Phone Justin Morales MD Primary Care Provider [phone] Social History Tobacco Use Types Packs/Day Years [...] (2 of 2 - PCV) 09/07/2021 09/07/2020 [id number] Vaccine (3 - season) 2024 07/21/2021, 06/22/2021 [...] age to complete this topic Care Teams Programmer Analyst Consultant Relationship Specialty Start Date End Date Justin Morales MD [address] [place] [address] PCP - General 01/27/21
[2025-05-13 11:06] LABS: Chloride 103 mmol/L (98-107); Sodium 138 mmol/L (136-145)
[2025-05-13 11:07] LABS: Potassium 3.3 mmoL/L (3.5-5.1)
[2025-05-13 11:09] LABS: Anion Gap 8.3 mEq/L (5-15); Blood Urea Nitrogen 20 mg/dl (9-20); Carbon Dioxide 30 mmol/L (22.0-30.0); Creatinine,Serum 1.10 mg/dl (0.66-1.25); Estimated Glomerular Filt Rate 69 ml/min (>60); GFR (African American) 83 ML/MIN (>60)
[2025-05-13 11:10] LABS: Calcium 9.2 mg/dl (8.4-10.2); Glucose 216 mg/dl (74-100)
== END 2025-05-13 23:59 | disposition home or self-care (01) ==
LOC: LAB 09:44
PROVIDERS: PCP Family Medicine; Visit Provider Family Medicine
DX: N17.9 Acute kidney failure, unspecified (principal)
CPT/HCPCS: 36415; 80048

== ENCOUNTER 2025-07-08 20:05 | Emergency (ER) | payer MEDICAID, SELFPAY ==
--- OUTSIDE RECORDS SUMMARY | 2025-07-08 07:02 | XMS_ITS | Continuity of Care Document ---
Author Organization [facility] Phone Care Team Providers Care Sap Payroll Consultant Name Role Phone TAMICA KHAN JR Unavailable [phone] DECLINED, PCP Primary Care Unavailable TAMICA KHAN JR Primary Attending TAMICA KHAN JR Admitting ALLERGIES AND ADVERSE REACTIONS ALLERGIES AND ADVERSE REACTIONS Code System Allergy Substance Adverse Reaction Date Reaction (Severity) Comment Status Reported By Updated By [id number] RXNorm CODEINE Rash (Severe) active TY [id number] on April 11, 2023 3:17:34 PM [facility] RESULTS Patient: JAMISON Contreras Date of : 1965 5 LABORATORY RESULTS ORDER 100: PROSTATE SPECIFIC AG PSA (LOINC: 2857-1) ORDER DATE: July 07, 2025 7:36:00 PM [facility] Specimen Source: Serum/Plasm a Specimen Type: Acellular blo od (serum or plasma) specimen PERFORMING LAB: [address] [id number] Result Comment: Final Result Date: July 07, 2025 8:15:00 PM [facility] (TECH: [facility]) LOINC TEST FLAG RESULT REFERENCE RANGE UPDA JOHN BY [id number] Prostate specific Ag [Mass/volume] in Serum or Plasma H 4.51 ng/mL 0.0 ng/mL - 4.0 ng/mL June 8:15:00 PM [facility] (TECH: [facility]) LABORATORY NARRATIVE RESULTS Information is not available RADIOLOGY RESULTS Information is not available PATHOLOGY NARRATIVE RESULTS Information is not available MICROBIOLOGY RESULTS No Micro Labs/Results Exist for Patient BLOOD ADMIN RESULTS Information is not available MEDICATIONS HOME MEDICATIONS Status RXNORM NDC Medication Dose Route Frequency Dates Comments Reported By Updated By Drug Treatment Unknown DISCHARGE MEDICATIONS Status RXNORM NDC Medication Dose Route Frequency Dates Dis pense Data Comments Physician Updated By No Discharge Medication Info rmation Available INPATIENT MEDICATIONS Status RXNORM NDC Medication Dose Route Frequency Rat e Quantity Dates Indication Dispense Data Comments Physician Updated By No Inpatient Medication Info rmation Available SOCIAL HISTORY SOCIAL HISTORY - Smoking Status SNOMED-CT Social History Element Description Effective Dates Offered Cessation Comment Updated By [id number] Historical Tobacco smoking status Never Smoked [id number] on April 10, 2023 6:38:19 PM [facility] SOCIAL HISTORY - Gender Sex: Male SOCIAL HISTORY - Status : status i nformation is not available Intention in Next Year: intention information is not available SOCIAL HISTORY - Assessments Code System Description Status Date Value of Assessment Updated By Comment Assessment Information is no t available SOCIAL HISTORY - [place] Affiliation [place] information is not av ailable SOCIAL HISTORY - Legal Sex Legal Sex information is not available SOCIAL HISTORY - Sexual Behavior Sexual Orientation Gender Identity SNOMED-CT Description SNO MED -CT Description Activity Level No of Partners Partner Type UpdatedBy Information is not available SOCIAL HISTORY - Occupation Occupation information is no t available HEALTH CONCERNS Problems Concern Status Health Concern problem infor mation not available. Smoking Status Status Years Used Consumed packs p er day Health Concern smoking histo ry information not available. Family History Concern Status Health Concern family histor y information not available. ENCOUNTERS ENCOUNTER INFORMATION Reason for Visit R97.20 Admission July 07, 2025 7:35:[address] [address] Discharge July 07, 2025 8:35:00 PM [facility] DISCHARGED TO HOME OR SELF CARE ENCOUNTER DIAGNOSES Notes information is not lois ilable. Code System Diagnosis Onset Date Diagnosis information is not available. ABSTRACT DIAGNOSES Code System Diagnosis Updated By Abatement Date Abstract Diagnosis informati on is not available. CARE TEAM Care Sap Payroll Consultant Role TAMICA KHAN Referring PCP DECLINED Primary Care TAMICA KHAN Primary Attending TAMICA KHAN Admitting CARE TEAM CARE cooker syrup Role on Team Location Telecom Status Start Date End Michi e Updated By BILL Arriola JR, MD Referring normal July 07, 2025 4:00:00 AM [facility] July 07, 2025 8:35:00 PM [facility] [id number] on July 08, 2025 10:15:02 AM [facility] BILL Arriola JR, MD Attending normal July 07, 2025 4:00:00 AM [facility] July 07, 2025 8:35:00 PM [facility] [id number] on July 08, 2025 10:15:02 AM [facility] BILL Arriola JR, MD Admitting normal July 07, 2025 4:00:00 AM [facility] July 07, 2025 8:35:00 PM [facility] [id number] on July 08, 2025 10:15:02 AM [facility] DECLINED PCP PCP normal July 07, 2025 7:36:04 PM [facility] July 07, 2025 8:35:00 PM [facility] [id number] on July 08, 2025 10:15:02 AM [facility]
[2025-07-08 20:15] VITALS: BP 155/85; PULSE 75; RESP 16; TEMP 36.7; O2SAT 95; BMI 30.7
--- OUTSIDE RECORDS SUMMARY | 2025-07-08 20:17 | XMS_ITS | Data Portability ---
Author Organization [facility] [place] Address [address] [place] [address] Care Team Providers Care Freezer Operator Name Role Phone AVERY MAYNARD Primary Care Provider [phone] Assessment No assessment recorded. Plan of Treatment Reminders Order Date Submit Date Provider Last Modified By Organization Details Last Modified Time Details Appointments PROC 15 2025 10:00A M Uche Velásquez Jr, MD Not available Not available Not available Lab urinalysi s, dipstick [address] [address], [address], 07/08/2025 13:11:38 PSA, total + free, serum or plasma [address] (Laboratory), [address], [place], [address], 07/08/2025 13:11:38 PSA, total + free, serum or plasma [address] (Laboratory), [address], [place], [address], 12/01/2024 14:05:59 urinalysi s, dipstick [address] Urology, [address] [place], [address], 11/20/2024 08:43:08 PSA, total + free, serum or plasma 2023 025 [facility] (Laboratory), [address] [facility], [place], [address], 12/28/2024 03:25:12 Referral None recorded. Procedures None recorded. Surgeries None recorded. Imaging None recorded. Medication Orders finasteri de 5 mg tablet 2024 0[address] [facility] [place] [address] Pharmacy 591, [address], [address], 07/07/2025 13:25:48 Patient TargetsNo targets recorded. Patient InstructionsNo instructions recorded. Reason for Referral None Reported. Results Created Date Observation Date Name Description Value Unit Range Abnormal Flag Note LastModifiedBy Organization Detail LastModifiedTime 11/17/1911/16/2024 urina lysis , dipst ick Leukocytes (reference range) negati ve Not Available [facility] [address] [place] [address], [address], 11/16/2024 16:12:18 11/17/19 25 11/16/2024 urina lysis , dipst ick Nitrite (reference range:) negati ve Not Available [facility] [address] [place] [address], [address], 11/16/2024 16:12:18 11/17/19 25 11/16/2024 urina lysis , dipst ick Urobilinogen (reference range) 0.2 Not Available [facility] [address] [place] [address], [address], 11/16/2024 16:12:18 11/17/19 25 11/16/2024 urina lysis , dipst ick Protein (reference range) negati ve Not Available [facility] [address] [place] [address], [address], 11/16/2024 16:12:18 11/17/19 25 11/16/2024 urina lysis , dipst ick pH (reference range 5-8.5) 5.5 Not Available [address], [address], 11/16/2024 16:12:18 11/17/19 25 11/16/2024 urina lysis , dipst ick Blood (reference range:) large Not Available [address], [address], 11/16/2024 16:12:18 11/17/19 25 11/16/2024 urina lysis , dipst ick Specific Lincoln (reference range) 1.015 Not Available [address], [address], 11/16/2024 16:12:18 11/17/19 25 11/16/2024 urina lysis , dipst ick Ketone (reference range) negati ve Not Available [address], [address], 11/16/2024 16:12:18 11/17/19 25 11/16/2024 urina lysis , dipst ick Bilirubin (reference range) negati ve Not Available [address], [address], 11/16/2024 16:12:18 11/17/19 25 11/16/2024 urina lysis , dipst ick Glucose (reference range) 1000 Not Available [address], [address], 11/16/2024 16:12:18 11/17/19 25 11/16/2024 urina lysis , dipst ick Color (reference range: yellow-brown ) Red Not Available [address], [address], 11/16/2024 16:12:18 11/21/19 25 11/20/2024 PSA, TOTAL (REFL EX TO FREE) note Unles s other owens noted testi ng [facility] at: [facility] [address] [place] [address] Mark mace MD Not Available [facility] (Pre-Op [facility]) [address] [place] [address] [place], [address], 11/22/2024 09:12:07 11/21/1911/22/2024 PSA, TOTAL (REFL EX TO FREE) prostate [...] or kits canno t be used inter alvraez so . Resul ts canno t be inter prete d as absol dolores evide nce of the prese nce or absen ce of leidy gardner se. Not Available [place] [facility] (Pre-Op Clinic) [address] [place] [address] [place], [address], 11/22/2024 09:12:07 11/21/1911/22/2024 PSA, TOTAL (REFL EX TO FREE) reflex criteria Commen t . The perce nt free PSA is perfo rmed on a refle x basis only when the total PSA is betwe en 4.0 and 10.0 ng/mL . Perfo rmed at: [facility] [address], [place] [address] [facility] Lab Direc tor: Floyd otto PhD, Phone : [phone] Not Available [place] [facility] (Pre-Op Clinic) [address] [place] [address] [place], [address], 11/22/2024 09:12:07 07/07/2007/07/2025 urina lysis , dipst ick Leukocytes (reference range) negati ve Not Available [address], [address], 07/07/2025 11:08:28 07/07/2007/07/2025 urina lysis , dipst ick Nitrite (reference range:) negati ve Not Available [address], [address], 07/07/2025 11:08:28 07/07/2007/07/2025 urina lysis , dipst ick Urobilinogen (reference range) 0.2 Not Available [address], [address], 07/07/2025 11:08:28 07/07/2007/07/2025 urina lysis , dipst ick Protein (reference range) negati ve Not Available [address], [address], 07/07/2025 11:08:28 07/07/2007/07/2025 urina lysis , dipst ick pH (reference range 5-8.5) 5.5 Not Available [address], [address], 07/07/2025 11:08:28 07/07/2007/07/2025 urina lysis , dipst ick Blood (reference range:) negati ve Not Available [address], [address], 07/07/2025 11:08:28 07/07/20 25 07/07/2025 urina lysis , dipst ick Specific Lincoln (reference range) 1.025 Not Available [address], [address], 07/07/2025 11:08:28 07/07/2007/07/2025 urina lysis , dipst ick Ketone (reference range) trace Not Available [address], [address], 07/07/2025 11:08:28 07/07/2007/07/2025 urina lysis , dipst ick Bilirubin (reference range) negati ve Not Available [address], [address], 07/07/2025 11:08:28 07/07/2007/07/2025 urina lysis , dipst ick Glucose (reference range) 250 Not Available [address], [address], 07/07/2025 11:08:28 Result Notes None recorded. Problems Name Problem SNOMED Code Status Onset Date Resolution Date Notes Provider Name and Address Organization Details Recorded Time Benign prostatic hyperplasia with outflow obstruction 409284863 Active Marti fraser [facility] 3 09:53:36 Lesion of urinary bladder 090166412 Active Not Available [facility] 3 14:10:26 Hypertensive disorder 79978072 Active 2022 Not Available [facility] 3 14:10:26 Diabetes mellitus 04876773 Active 2022 Not Available [facility] 3 14:10:26 Hyperglycemia 64309114 Active 2022 Not Available [facility] 14:10:26 Arthritis 8100401 Active 2022 Not Available [facility] 14:10:26 Problem Notes None recorded. Procedures Surgical History Date Name Laterality Status Provider Name and Address Organization Details Recorded Time 5 Cystoscopy-Male completed Uche Velásquez Jr, MD [address], [address], [place], [address], [place] [facility] [place] & [place] 07/07/2025 13:21:33 5 Bladder Irrigation completed Uche Velásquez Jr, MD [address], [address], [place], [address], [place] [facility] [place] 11/20/2024 10:15:28 5 Cystoscopy-Male completed Uche Velásquez Jr, MD [facility] [address], [address], [place], [address], [place] [facility] [place] 11/17/2024 09:44:31 4 Cystoscopy-Male completed Uche Velásquez Jr, MD [address] [place] [address] Drive, [address], [place], [address], [place] [facility] [place] 07/08/2024 12:17:31 4 Cystoscopy-Male completed Uche Velásquez Jr, MD [facility] [address], [address], [place], [address], [place] [facility] [place] 12/25/2023 13:37:32 4 Cystoscopy-Male completed Uche Velásquez Jr, MD [address] [place] [address] Drive, [address], [place], [address], [place] [facility] [place] 11/14/2023 18:57:36 3 Cystoscopy-Male completed Uche Velásquez Jr, MD [facility] [address], [address], [place], [address], [place] [facility] [place] 07/05/2023 15:30:28 3 Cystoscopy-Male completed Uche Velásquez Jr, MD [facility] [address], [address], [place], [address], [place] [facility] [place] 03/15/2023 12:36:52 3 Cystoscopy-Male completed Uche Velásquez Jr, MD [address] [place] [address] Drive, [address], [place], [address], [place] [facility] [place] 02/07/2023 16:55:17 3 Cancer Surgery completed April Arellanot RAFAEL [facility] & [place] 2023 11:41:08 3 Prostate Surgery completed April Arellanot RAFA[facility] & [place] 2023 11:41:08 3 Head or Neck Surgery completed April Bardalesgett [facility]FA[facility] & [place] 2023 11:41:08 Imaging Results None recorded. Procedure Notes None recorded. Medical Equipment None Reported. Allergies Allergen ID Allergen Name Allergen Category Reaction Reaction Severity Criticality Documentation Date Start Date Code Code System Note Provider Name and Address Organization Details Recorded Time 16780 codeine medicatio n Not available Not available Not available 02/06/2023 2670 RxNorm Other react ions and sever ities : 'Adve rse react ion to subst ance' . [facility] Medications Name Sig Start Date Stop Date Status Note LastModified by Organization Details LastModified Time acetaminoph en 500mg tab TAKE 1 TABLET BY MOUTH EVERY 6 HOURS FOR AT LEAST 3 DAYS 07/07 completed Not Available Not Available Not Available amoxicillin 500 mg capsule TAKE 1 CAPSULE BY MOUTH THREE TIMES DAILY FOR 10 DAYS 07/07 completed Not Available Not Available Not Available Flomax 0.4 mg capsule 0.4 mg by oral route. 04/22 completed Not Available Not Available Not Available cefazolin 1 gram solution for injection 1 g by injection route. 03/23 completed Not Available Not Available Not Available atorvastati n 40 mg tablet TAKE ONE TABLET BY MOUTH EVERY DAY AT BEDTIME active Not Available Not Available No t Available metformin 500 mg tablet Take 1000 mg by oral route. 07/07 completed Not Available Not Available Not Available Xylocaine-M PF 20 mg/mL (2 %) injection solution 5 mL by injection route. 02/15 completed Not Available Not Available Not Available bupropion HCl SR 150 mg tablet,12 hr sustained-r elease TAKE ONE TABLET BY MOUTH TWICE DAILY [...] DAY ON DAY 2 THROUGH DAY 5 07/07 completed Not Available Not Available Not Available benzonatate 200 mg capsule TAKE 1 [...] mg tablet, extended release 24 hr TAKE ONE TABLET BY MOUTH TWICE DAILY [...] BY MOUTH TWICE DAILY FOR 5 DAYS 07/07 completed Not Available Not Available Not Available sodium chloride 0.45 % intravenous solution 1000 mL by intraven. route. 03/23 completed Not Available Not Available Not Available ciprofloxac in 500 mg tablet 500 mg by oral route. 04/22 completed Not Available Not Available Not Available Wellbutrin SR 100 mg tablet, 12 hr sustained-r elease Take 1 tablet every day by oral route. active Not Available Not Available No t Available triamcinolo ne acetonide 0.1 % topical cream APPLY TOPICALLY TO THE AFFECTED AREA(S) THREE TIMES DAILY 07/07 completed Not Available Not Available Not Available ketorolac 30 mg/mL (1 mL) injection [...] TAKE ONE TABLET BY MOUTH TWICE DAILY 07/07 completed Not Available Not Available Not Available promethazin e 25 mg/mL injection solution [...] OUNCES OF LIQUID AND DRINK ONCE DAILY 07/07 completed Not Available Not Available Not Available levofloxaci n 500 mg tablet TAKE 1 TABLET BY MOUTH THE DAY BEFORE PROCEDURE , 1 TABLET THE DAY OF, AND 1 TABLET THE DAY AFTER 07/07 completed Not Available Not Available Not Available cefdinir 300 mg capsule TAKE 1 CAPSULE BY MOUTH TWICE DAILY 07/07 completed Not Available Not Available Not Available metformin ER 500 mg tablet,exte nded release 24 hr TAKE 2 TABLETS BY MOUTH ONCE DAILY ONCE DAILY 07/07 completed Not Available Not Available Not Available finasteride 5 mg tablet Take 1 tablet every day by oral route. 2024 active Not Available Not Available Not Avai lable buspirone 15 mg tablet Take 1 tablet [...] Not Available Not Available Not Available insulin aspart (U-100) 100 unit/mL (3 mL) subcutaneou s pen INJECT SUBCUTANE OUSLY PER SLIDING SCALE DIRECTION S BEFORE MEALS AND AT BEDTIME MAX DAILY DOSE 45 UNITS active Not Available Not Available No t [...] BY MOUTH ONCE DAILY FOR 90 DAYS 07/07 completed Not Available Not Available Not Available ondansetron HCl (PF) 4 mg/2 mL injection solution 4 mg by injection route. 03/23 completed Not Available Not Available Not Available FreeStyle Lite Meter kit USE 1 TO CHECK GLUCOSE THREE TIMES DAILY active Not Available Not Available No t Available Lantus Solostar U-100 Insulin 100 unit/mL (3 mL) subcutaneou s pen INJECT 25 UNITS SUBCUTANE OUSLY EVERY DAY FOR DIABETES active Not Available Not Available [...] Available Not Available Not Available OneTouch Verio test strips USE TO TEST BLOOD SUGAR TWICE DAILY FOR DIABETES active Not Available Not Available No t Available polyethylen e glycol (bulk) 07/07 completed Not Available Not Available Not Available Linzess [...] mg/3 mL) subcutaneou s pen injector INJECT 0.5mg SUBCUTANE OUSLY ONCE WEEKLY 07/07 completed Not Available Not Available Not Available Clenpiq 10 mg-3.5 gram-12 gram/175 mL oral solution TAKE 175ML BY MOUTH AT 5-9PM THE EVENING BEFORE COLONOSCO PY, TAKE THE 2ND DOSE OF 175ML THE NEXT DAY APPROXIMA TELY 5 HOURS BEFORE COLONOSCO PY active Not Available Not Available No t Available Millicent Pen Needle 32 gauge x 32 USE DIRECTED active Not Available Not Available No t Available Vitals Date Recorded Body height Body mass index (BMI) Body weight Body temperature Provider Name and Address Organization Details Last Updated DateTime 11/16/2024 167.64 cm 24.2 kg/m2 04158.86 g 98.1 [degF] Matthew Neumann [facility] & [place] 11/16/2024 14:39:00 Date Recorded Body height Body mass index (BMI) Body weight Body temperature Provider Name and Address Organization Details Last Updated DateTime 11/20/2024 167.64 cm 24.2 kg/m2 00062.86 g 98.1 [degF] Barbra Patiñosara [place] - [facility] & [place] 11/20/2024 08:39:01 Date Recorded Body height Body mass index (BMI) Body weight Body temperature Provider Name and Address Organization Details Last Updated DateTime 12/22/2024 167.64 cm 24.2 kg/m2 29986.86 g 98.1 [degF] Matthew Neumann [place] - [facility] & [place] 12/22/2024 09:12:50 Date Recorded Body height Body mass index (BMI) Body weight Provider Name and Address Organization Details Last Updated DateTime 07/07/2025 167.64 cm 24.2 kg/m2 99003.86 g Laurita Rubin [place] - [facility] & [place] 07/07/2025 10:55:40 Date Recorded Body height Body mass index (BMI) Body weight Provider Name and Address Organization Details Last Updated DateTime 07/08/2024 167.64 cm 24.2 kg/m2 18305.86 g April Wylie [facility] & [place] 07/08/2024 11:09:06 Social History Question Answer Notes LastModified by [employer] Details LastModified Time Tobacco Smoking Status Never Smoker Harriet Ho evelio, [facility] & [place] 02/06/2023 14:23:05 Do You Have An Advance Directive? No [email or web address] Information not available 05/02/2023 Are You Blind Or Do You Have Difficulty Seeing? Yes [email or web address] Information not available 05/02/2023 What Was The Date Of Your Most Recent Tobacco Screening? 11/20/2024 [email or web address] Information not available 11/20/2024 Are You Passively Exposed To Smoke? No [email or web address] Information not available 05/02/2023 How Much Tobacco Do You Smoke? No [email or web address] Information not available 05/02/2023 How Many Years Have You Smoked Tobacco? 0 [email or web address] Information not available 11/16/2024 Sex: Unknown Functional Status Question Answer Note LastModified by Organizat ion Details LastModified Time Do you use any illicit or recreational drugs? No Information not available 05/02/2023 What is your level of alcohol consumption? None [email or web address] Information not available 05/02/2023 Do you or have you ever used smokeless tobacco? Never used smokeless tobacco [email or web address] Information not available 05/02/2023 What is your exercise level? None [email or web address] Information not available 05/02/2023 Mental Status Question Answer Note LastModified by Organization D etails LastModified Time Do you feel stressed (tense, restless, nervous, or anxious, or unable to sleep at night)? [id number] [email or web address] Information not available 05/02/2023 Family History Relationship Description Onset Age of this Age Resolved Age Notes LastModified by Organization Details LastModified Time Mother [email or web address] Not lois ilable 12/22/2024 09:03:09 Mother Disorder [...] available 04/22/2023 10:20:52 Father Multiple organ failure [email or web address] Not available 12/22 09:03:09 Father Disorder of [...] Diagnosis SNOMED-CT Code Diagnosis ICD10 Code Diagnosis IMO Codes Diagnosis Note [id number] Uche Velásquez Jr, MD [facility] [address] [address] 02/06/2023 14:02:19 02/06/2023 15:07:06 Incomplete emptying of urinary bladder due to benign prostatic hypertrophy 0389811982 73161 N40.1 patient with recent urinary retention. His [...] the Flomax and antibiotic . Bilateral hydronephrosis 92078433 N13.30 patient with bilateral hydronephr osis and hydrourete r on recent CT scan. This is likely due to bladder outlet obstructio n. His creatinine was normal at 1.2. Prostate s pecific antigen above reference range 335644782 R97.20 PSA drawn during episode of retention was elevated at 11.2. This is not surprising repeat a CT scan once his current symptoms have resolved. [id number] Uche Velásquez Jr, MD [facility] [place] [address] 02/07/2023 07:57:25 02/07/2023 08:58:04 Incomplete emptying of urinary bladder due to benign prostatic hypertrophy 0289668032 51577 N40.1 patient with recent urinary retention. His [...] to the emergency room last evening and [employer] Fonseca catheter was replaced. He returns today and cystoscopy was performed showing a large amount of bladder tumors as well as prostate enlargemen t. We discussed the findings and will proceed with TURBT. Malignant neoplasm of urinary bladder 788220387 C67.9 patient with recent urinary retention. Cystoscopy [...] extensive amount of tumor in his bladder. [id number] Uche Velásquez Jr, MD [facility] [address] [place] [address] 02/19/2023 11:33:32 02/19/2023 11:55:55 Malignant neoplasm of urinary bladder 512457897 C67.9 recent cystoscopy at the time of [...] Benign pro static hyperplasia with outflow obstruction 541542454 N40.1 patient with recent urinary retention. He [...] month with a bladder scan. Bilateral hydronephrosis 75171436 N13.30 patient with bilateral hydronephr osis and hydrourete r on recent CT scan. This is likely due to bladder outlet obstructio n. His creatinine was normal at 1.2. will repeat a scan at follow-up to determine improvemen t. [id number] Uche Velásquez Jr, MD [facility] [address] [address] 02/27/2023 09:45:40 02/27/2023 11:22:56 Benign prostatic hyperplasia with outflow obstruction 329110867 N40.1 patient with recent urinary retention. patient [...] bladder scan. Malignant neoplasm of urinary bladder 145703873 C67.9 recent cystoscopy at the time of [...] ce cystoscopy in 3-4 months. Bilateral hydronephrosis 04247446 N13.30 patient with bilateral hydronephr osis and hydrourete r on recent CT scan. This is likely due to bladder outlet obstructio n. His creatinine was normal at 1.2. will repeat a scan in future to determine improvemen t. Yaya hematuria 98585976 5 R31.0 gross hematuria noted after his Fonseca catheter was removed last week. This necessitat ed an ER visit and Fonseca replacemen t. Urine is clear today and voiding trial performed. [id number] Uche Velásquez Jr, MD [facility] [address] [address] 03/15/2023 11:15:43 03/15/2023 12:17:48 Benign prostatic hyperplasia with outflow obstruction 388867634 N40.1 patient with recent urinary retention. patient [...] at his earliest convenien e. History of primary malignant neoplasm of urinary bladder 039260755 Z85.51 patient with history of low-grade bladder cancer. Today cystoscopy showed no evidence of recurrence . Bilateral hydronephrosis 46286503 N13.30 patient with bilateral hydronephr osis and hydrourete r on previous CT scan. This is likely due to bladder outlet obstructio n. His creatinine was normal at 1.2. will repeat a scan in future to determine improvemen t. [id number] Giuliano Pereira MD [address] [address] 03/11/2023 10:26:17 03/11/2023 14:03:19 Dermoid cyst of head 066291958 D36.7 [id number] Uche Velásquez Jr, MD [facility] [place] [address] [place] [address] 03/27/2023 09:09:49 03/27/2023 09:49:38 Benign prostatic hyperplasia with outflow obstruction 560300366 N40.1 patient with recent urinary retention. patient [...] specimen showed 3 of 81 chips with Panaca's 3+4 prostate cancer. Carcinoma of prostate 25 1951676 C61 TURP specimen shows 3 of 81 chips present with Panaca's 3+4=7 prostate cancer. We discussed that this is a low percentage of prostate cancer and watchful waiting recommende d for now. I will see him back with a PSA after his prostate has healed from the TURP. History of primary malignant neoplasm of urinary bladder 239999431 Z85.51 patient with history of bladder cancer is low-grade. Repeat cystoscopy in 3 months. [id number] Giuliano Pereira MD [facility] [address] [place], [place] [address] [address] 04/25/2023 08:51:19 04/29/2023 15:52:17 [id number] Uche Velásquez Jr, MD [facility] [address] [address] 2023 11:35:36 2023 12:04:26 Benign prostatic hyperplasia with outflow obstruction 403650073 N40.1 Patient is status post TURP is now voiding much better. He is happy with his current state of urination. He is off of Flomax. His bladder scan today shows a residual of 81 cc. Carcinoma of prostate 25 2025691 C61 TURP specimen shows 3 of 81 chips present with Panaca's 3+4=7 prostate cancer. We discussed that this is a low percentage of prostate cancer and watchful waiting recommende d for now. I will see him back with a PSA after his prostate has healed from the TURP. we will consider prostate biopsy if PSA is elevated. History of primary malignant neoplasm of urinary bladder 802891445 Z85.51 patient with history of bladder cancer is low-grade. Repeat cystoscopy in 1 months. [id number] Giuliano Pereira MD [facility] [address] [place], [place] [address]ani [place] [address] 05/02/2023 08:53:56 05/03/2023 11:02:43 Postoperative visit 147635639 Z09 [id number] Giuliano Pereira MD [facility] [address] [place], [place] [address] [address] 05/16/2023 09:27:20 05/16/2023 20:32:34 Postoperative visit 237906427 Z09 [id number] Uche Velásquez Jr, MD [facility] [address] [address] 07/05/2023 12:51:34 07/05/2023 13:30:22 Carcinoma of prostate 246876377 C61 TURP specimen shows 3 of 81 chips present with Dominic's 3+4=7 prostate cancer. PSA to be performed today. If it is significan tly elevated we discussed prostate biopsy. History of primary malignant neoplasm of urinary bladder 969236316 Z85.51 patient with history of bladder cancer is low-grade. surveillan ce cystoscopy today showed no recurrence s. We will repeat in 3 months. [id number] Uhce Velásquez Jr, MD [facility] [address] [address] 10/09/2023 13:27:50 10/09/2023 14:07:02 History of primary malignant neoplasm of urinary bladder 022112198 Z85.51 patient with history of bladder cancer is low-grade. surveillan ce cystoscopy today showed no recurrence s. We will repeat in 3 months. Carcinoma of prostate 25 2210558 C61 TURP specimen shows 3 of 81 chips present with Panaca's 3+4=7 prostate cancer. Prostate bx 08/06 showed no cancer. PSA in 3 months. Benign pro static hyperplasia with outflow obstruction [id number] N40.1 Patient is status post TURP is now voiding much better. He is happy with his current state of urination. He is off of Flomax. [id number] Uche Velásquez Jr, MD [address] [address] 12/25/2023 12:58:40 12/25/2023 13:36:08 Carcinoma of prostate 642133668 C61 TURP specimen shows 3 of 81 chips present with Panaca's 3+4=7 prostate cancer. Prostate bx 07/2023 showed no cancer. PSA in 3 months. Benign pro static hyperplasia without outflow obstruction 506304310 N40.0 patient with history of BPH with obstructio n. He underwent a TURP in February 2023 and is voiding well. History of primary malignant neoplasm of urinary bladder 019153777 Z85.51 patient with history of bladder cancer is low-grade. surveillan ce cystoscopy today showed no recurrence s. We will repeat in 6 months. Prostate s pecific antigen above reference range 873442690 R97.20 patient is recent PSA was 6.9 with a free PSA putting him at a 23% chance of prostate cancer. Previous PSAs were 8.2, 10.1 and 12. PSA continues to decrease. Does have a history of stage TA 1 prostate cancer. Prostate biopsy in July 2023 showed no cancer. We will continue to monitor. [id number] Uche Velásquez Jr, MD [facility] [address] [address] 07/08/2024 11:00:54 07/08/2024 11:22:35 Prostate specific antigen above reference range 289918538 R97.20 Patient with history of elevated PSA. His most recent PSA was 6.2. Previous PSAs of 6.23 November 2023 10.1 in January 2023. Patient does have history of stage T1a prostate cancer. We continue to monitor. Biopsy after his TURP showed no evidence of cancer. Benign pro static hyperplasia without outflow obstruction 488950356 N40.0 patient with history of BPH with obstructio n. He underwent a TURP in February 2023 and is voiding well. History of primary malignant neoplasm of urinary bladder 187742620 Z85.51 patient with history of bladder cancer is low-grade. surveillan ce cystoscopy today showed no recurrence s. We will repeat in 6 months. Carcinoma of prostate 25 7850586 C61 TURP specimen shows 3 of 81 chips present with Panaca's 3+4=7 prostate cancer. Prostate bx 07/2023 showed no cancer. PSA last week was 6.2. This is lower than previous PSAs. His prostate is large and likely cause with elevation. Will continue to monitor. [id number] Uche Velásquez Jr, MD [facility] [place] [address] 11/16/2024 14:33:27 11/16/2024 16:25:10 Blood in urine 50031814 R31.9 59-year-ol d white male with one-week history of gross hematuria. Cystoscopy today reveals a bleeding vessel at 9:00 a.m. position in the prostatic urethra neck. Fonseca catheter was placed to tamponade the bleeding. Discussed proceeding with cystoscopy and fulguratio n under general anesthesia . Cause of the bleeding likely from increased Valsalva from recent workouts. Prostate s pecific antigen above reference range 624172406 R97.20 Patient with history of elevated PSA. His most recent PSA was 6.2. Previous PSAs of 6.23 November 2023 10.1 in January 2023. Patient does have history of stage T1a prostate cancer. We continue to monitor. Biopsy after his TURP showed no evidence of cancer. Benign pro static hyperplasia without outflow obstruction 912149286 N40.0 patient with history of BPH with obstructio n. He underwent a TURP in February 2023 and is voiding well. Carcinoma of prostate 25 2815572 C61 TURP specimen shows 3 of 81 chips present with Panaca's 3+4=7 prostate cancer. Prostate bx 07/2023 showed no cancer. PSA in June was 6.2. This is lower than previous PSAs. His prostate is large and likely cause of the elevation. Will continue to monitor. History of primary malignant neoplasm of urinary bladder 311001902 Z85.51 patient with history of bladder cancer is low-grade. surveillan ce cystoscopy today showed no recurrence s. We will repeat in 6 months. [id number] Uche Velásquez Jr, MD [facility] [address] [place] [address] 11/20/2024 08:27:39 11/20/2024 09:53:00 Prostate specific antigen above reference range 327879593 R97.20 Patient with history of elevated PSA. His most recent PSA was 6.2 on 06/2024. Previous PSAs of 6.23 November 2023 10.1 in January 2023. Patient does have history of stage T1a prostate cancer. We continue to monitor. Biopsy after his TURP showed no evidence of cancer. We will repeat PSA today. Yaya hematuria 89850372 5 R31.0 patient with recent gross hematuria [...] Benign pro static hyperplasia without outflow obstruction 408145113 N40.0 patient with history of BPH with obstructio n. He underwent a TURP in February 2023 and is voiding well. Carcinoma of prostate 25 0136674 C61 TURP specimen shows 3 of 81 chips present with Dominic's 3+4=7 prostate cancer. Prostate bx 07/2023 showed no cancer. PSA in June was 6.2. This is lower than previous PSAs. His prostate is large and likely cause of the elevation. recheck PSA today History of primary malignant neoplasm of urinary bladder [id number] Z85.51 patient with history of bladder cancer is low-grade. recent cystoscopy showed no recurrence s. We will repeat in 6 months. [id number] Stan Daugherty M.D [facility] [place] [address] 12/22/2024 09:03:05 12/22/2024 09:34:32 Yaya hematuria 786313896 R31.0 [id number] patient is doing well after his procedure 12/17/2024 .His catheter was removed and he voided successful ly.I have advised him to keep return to clinic in about 3-[address] Velásquez for surveillan ce cystoscopy . I have also advised him that I will be in the office until about 430 today if he is unable to void. [id number] Uche Velásquez Jr, MD [facility] [place] [address] [place] [address] 07/07/2025 10:40:06 07/07/2025 11:09:20 Prostate specific antigen above reference range 183657693 R97.20 [id number] Patient with history of elevated PSA. His most recent PSA was 22 in November 2024. This was thought to be due to some prostatic irritation at the. He did undergo 2 cystoscopi es and fulguratio n of prostate after that. Previous PSAs of 6.23 November 2023 10.1 in January 2023. Patient does have history of stage T1a prostate cancer. We continue to monitor. Biopsy after his TURP showed no evidence of cancer. We will repeat PSA today. History of malignant neoplasm 393054372 Z85.51 [id number] patient with history of bladder cancer is low-grade. recent cystoscopy showed no recurrence s. We will repeat in 6 months. Cystoscopy today shows no evidence of recurrent bladder tumors. Patient reassured and we will repeat in 6 months. Benign pro static hyperplasia with outflow obstruction 588716972 N40.1 N13.8 [id number] Patient is status post TURP is now voiding much better. He is happy with his current state of urination. He is off of Flomax. Cystoscopy today showed evidence of a very large prostate. There was a TUR defect present. There is still some bilobar hyperplasi a present. The prostatic varices have resolved. Yaya hematuria 5 R31.0 [id number] patient with recent gross hematuria noted to have a bleeding blood vessel with the 9 o'clock position near the bladder neck. He underwent cystoscopy and fulguratio n of that vessel as well as other friable prostatic vessels. No further bleeding is noted. He is now on finasterid e. Cystoscopy today shows resolution of the previously noted friability of prostate. Health Concerns Section Related Observation LastModified by Organization Detai ls LastModified Time None Recorded Concern Status LastModified by Organization Details LastModified Time None Recorded Advance Directives Directive N: Payers Insurance Date Sequence Insurance Name Policy Number Policy Veloz Covered Member ID Veloz Member ID Guarantor Name 11/20/2024 2 MEDICAID-[facility] [employer] CHOICES - FFS/TRADITION AL Hi Goode [id number] Hi Goode 07/04/2025 1 [employer] (MEDICAID REPLACEMENT - HMO) Hi Goode [id number] Hi Goode 02/07/2023 1 *SELF PAY* Da mary ellen Goode 03/04/2023 1 [employer] (HMO[place] Hi Goode [id number] Hi Goode 11/20/2024 MED[place]ID-[place] [facility] [employer] CHOICES - FFS/TRADITION [place] Hi Goode [id number] Hi Goode Notes Date Note Type Note Provider Name and Address Organization Details Recorded Time 07/08/2024 text/html ROS as noted in the HPI Patient is a 59-year-old white male with [...] at that time. Uche Velásquez Jr, MD [address] [place] [address], [address], [place], [address], [facility] & [place] 07/08/2024 12:20:21 11/16/2024 text/html [facility] 59-year-old white male with a history of low-grade bladder [...] with 3 of 81 chips positive for Panaca grade 3 + 4 prostate cancer. PSA was 10.1 at the time of his TURP in his most recent was 6.2 in June 2024.His most recent cystoscopy for surveillance was in June 2024 and showed no evidence of recurrent bladder cancer at that time. Uche Velásquez Jr, MD [address] [place] [address], [address], [place], [address], [facility] & [place] 01/13/2025 11:23:24 11/20/2024 text/html [facility] 59-year-old white male with recent gross hematuria noted to [...] noted recent cystoscopy. Uche Velásquez Jr, MD [address], [address], [place], [address], [facility] & [place] 11/20/2024 10:19:39 12/22/2024 text/html Patient presents today [...] spontaneously with blood-tinged Irrigation. Stan Daugherty M.D [address] [place] [address], [address], [place], [address], [facility] & [place] 12/22/2024 14:16:34 07/07/2025 text/html ROS as noted in the HPI Patient is 60-year-old white male with history of prostate cancer and bladder cancer. His prostate cancer was found at the time of his TURP. He was found to have a very large prostate and underwent resection. Earlier this year he underwent fulguration of a very friable prostatic mucosa was placed on finasteride at that time. He denies any further hematuria. His urinalysis today shows no evidence of microscopic hematuria. His PSA has been elevated in the past in his most recent 1 was 22. Previous PSAs were around 6. The recent elevation is thought to be secondary to some prostatic irritation.Patholog y from his bladder cancer has been low-grade noninvasive. He returns today for surveillance cystoscopy. He denies any hematuria. Uche Velásquez Jr, MD [address] [place] [address], [address], [place], [address], [facility] & [place] 07/07/2025 13:26:48
--- OUTSIDE RECORDS SUMMARY | 2025-07-08 20:17 | XMS_ITS | Continuity of Care Document ---
Author Organization [place] - NT [facility] Address [address] [place] [address] Care Team Providers Care Lawn Caretaker Name Role Phone AVERY MAYNARD Primary Care Provider Assessment No assessment recorded. Plan of Treatment Reminders Order Date Submit Date Provider Last Modified By Organization Details Last Modified Time Details Appointments PROC 15 2025 10:00A M Uche Velásquez Jr, MD Not available Not available Not available Lab urinalysi s, dipstick [address], [address] [place] [address], [address], 07/08/2025 13:11:38 PSA, total + free, serum or plasma [address] (Laboratory), [address] [place] [address], [address], 07/08/2025 13:11:38 Referral None recorded. Procedures None recorded. Surgeries None recorded. Imaging None recorded. Medication Orders finasteri de 5 mg tablet [address] [facility], [address] [place] [address], [address], 07/07/2025 13:25:48 Patient TargetsNo targets recorded. Patient InstructionsNo instructions recorded. Reason for Referral None Reported. Results Created Date Observation Date Name Description Value Unit Range Abnormal Flag Note LastModifiedBy Organization Detail LastModifiedTime 07/07/2007/07/2025 urina lysis , dipst ick Leukocytes (reference range) negati ve Not Available [address], [address], 07/07/2025 11:08:28 07/07/2007/07/2025 urina lysis , dipst ick Nitrite (reference range:) negati ve Not Available [address], [address], 07/07/2025 11:08:28 07/07/2007/07/2025 urina lysis , dipst ick Urobilinogen (reference range) 0.2 Not Available [address], [address], 07/07/2025 11:08:28 07/07/2007/07/2025 urina lysis , dipst ick Protein (reference range) negati ve Not Available [address], [address], 07/07/2025 11:08:28 07/07/2007/07/2025 urina lysis , dipst ick pH (reference range 5-8.5) 5.5 Not Available [address], [address], 07/07/2025 11:08:28 07/07/2007/07/2025 urina lysis , dipst ick Blood (reference range:) negati ve Not Available [address], [address], 07/07/2025 11:08:28 07/07/2007/07/2025 urina lysis , dipst ick Specific [place] (reference range) 1.025 Not Available [address], [address], 07/07/2025 11:08:28 07/07/20 25 07/07/2025 urina lysis , dipst ick Ketone (reference range) trace Not Available [address], [address], 07/07/2025 11:08:28 07/07/20 25 07/07/2025 urina lysis , dipst ick Bilirubin (reference range) negati ve Not Available [facility] [address], [address], 07/07/2025 11:08:28 07/07/2007/07/2025 urina lysis , dipst ick Glucose (reference range) 250 Not Available [address], [address], 07/07/2025 11:08:28 Result Notes None recorded. Problems Name Problem SNOMED Code Status Onset Date Resolution Date Notes Provider Name and Address Organization Details Recorded Time Benign prostatic hyperplasia with outflow obstruction 959339528 Active Marti fraser, [place] - [place] [facility] & [place] 3 09:53:36 Lesion of urinary bladder 270039374 Active Not Available [facility] 3 14:10:26 Hypertensive disorder 71017436 Active 2022 Not Available [facility] 3 14:10:26 Diabetes mellitus 89709507 Active 2022 Not Available [facility] 3 14:10:26 Hyperglycemia 84773757 Active 2022 Not Available [facility] 3 14:10:26 Arthritis 3911783 Active 2022 Not Available [facility] 3 14:10:26 Problem Notes None recorded. Procedures Surgical History Date Name Laterality Status Provider Name and Address Organization Details Recorded Time 5 Cystoscopy-Male completed Uche Velásquez Jr, MD [address] [place] [address] Drive, [address], [place], [address], [facility] - NT [facility] & [place] 07/07/2025 13:21:33 5 Bladder Irrigation completed Uche Velásquez Jr, MD [address], [address], [place], [address], [place] - [facility] & [place] 11/20/2024 10:15:28 5 Cystoscopy-Male completed Uche Velásquez Jr, MD [address], [address], [place], [address], [place] - [facility] & [place] 11/17/2024 09:44:31 4 Cystoscopy-Male completed Uche Velásquez Jr, MD [address], [address], [place], [address], [place] - [facility] & [place] 07/08/2024 12:17:31 4 Cystoscopy-Male completed Uche Velásquez Jr, MD [facility] [address], [address], [place], [address], [place] - [facility] & [place] 12/25/2023 13:37:32 4 Cystoscopy-Male completed Uche Velásquez Jr, MD [address], [address], [place], [address], [place] - [facility] - [facility] & [place] 11/14/2023 18:57:36 3 Cystoscopy-Male completed Uche Velásquez Jr, MD [address], [address], [place], [address], [place] - [facility] & [place] 07/05/2023 15:30:28 3 Cystoscopy-Male completed Uche Velásquez Jr, MD [facility] [address], [address], [place], [address], [place] - [facility] & [place] 03/15/2023 12:36:52 3 Cystoscopy-Male completed Uche Vleásquez Jr, MD [address], [address], [place], [address], [place] - [facility] & [place] 02/07/2023 16:55:17 3 Cancer Surgery completed April Wylie [place] - [facility] - [place] & [place] 2023 11:41:08 3 Prostate Surgery completed April HALL [facility] & [place] 2023 11:41:08 3 Head or Neck Surgery completed April HALL [facility] & [place] 2023 11:41:08 Imaging Results None recorded. Procedure Notes None recorded. Medical Equipment None Reported. Allergies Allergen ID Allergen Name Allergen Category Reaction Reaction Severity Criticality Documentation Date Start Date Code Code System Note Provider Name and Address Organization Details Recorded Time 04723 codeine medicatio n Not available Not available Not available 02/06/2023 2670 RxNorm Other react ions and sever ities : 'Adve rse react ion to subst ance' . Marti fraser, [facility] & [place] 3 09:53:26 Medications Name Sig Start Date [...] Updated DateTime 07/07/2025 167.64 cm 24.2 kg/m2 54842.86 g Laurita Rubin [facility] & [place] 07/07/2025 10:55:40 Social History Question Answer Notes LastModified by Organizat ion Details LastModified Time Tobacco Smoking Status Never Smoker Harriet Ho fraser, [facility] & [place] 02/06/2023 14:23:05 Do You Have An Advance Directive? No [email or web address] Information not available 05/02/2023 Are You Blind Or Do You Have Difficulty Seeing? Yes [email or web address] Information not available 05/02/2023 What Was The Date Of Your Most Recent Tobacco Screening? 11/20/2024 [email or web address] Information not available 11/20/2024 Are You Passively Exposed To Smoke? No [email or web address] Information not available 05/02/2023 How Much Tobacco Do You Smoke? No Information not available 05/02/2023 How Many Years Have You Smoked Tobacco? 0 [email or web address] Information not available 11/16/2024 Sex: Unknown Functional Status Question Answer Note LastModified by Organizat ion Details LastModified Time Do you use any illicit or recreational drugs? No [email or web address] Information not available 05/02/2023 What is your level of alcohol consumption? None Information not available 05/02/2023 Do you or have you ever used smokeless tobacco? Never used smokeless tobacco [email or web address] Information not available 05/02/2023 What is your exercise level? None [email or web address] Information not available 05/02/2023 Mental Status Question Answer Note LastModified by Organization D etails LastModified Time Do you feel stressed (tense, restless, nervous, or anxious, or unable to sleep at night)? [id number] [email or web address] Information not available 05/02/2023 Family History Relationship Description Onset Age of this Age Resolved Age Notes LastModified by Organization Details LastModified Time Mother Acute stroke [place] [id number] Not lois ilable 12/22/2024 09:03:09 Mother Disorder [...] available 04/22/2023 10:20:52 Father Multiple organ failure [email or web address] Not available 12/22 09:03:09 Father Disorder [...] ICD10 Code Diagnosis IMO Codes Diagnosis Note [id number] Uche Velásquez Jr, MD [facility] [address] [address] 07/07/2025 10:40:06 07/07/2025 11:09:20 Prostate specific antigen above reference range 466623388 R97.20 25107 Patient with history of elevated PSA. His [...] repeat PSA today. History of malignant neoplasm 329221787 Z85.51 [id number] patient with history of bladder cancer is low-grade. recent cystoscopy showed no recurrence s. We will repeat in 6 months. Cystoscopy today shows no evidence of recurrent bladder tumors. Patient reassured and we will repeat in 6 months. Benign pro static hyperplasia with outflow obstruction 166528017 N40.1 N13.8 [id number] Patient is status post TURP is now voiding much better. He is happy with his current state of urination. He is off of Flomax. Cystoscopy today showed evidence of a very large prostate. There was a TUR defect present. There is still some bilobar hyperplasi a present. The prostatic varices have resolved. Yaya hematuria 13422077 5 R31.0 467658 patient with recent gross hematuria noted to [...] Member ID Veloz Member ID Guarantor Name 07/07/2025 1 [employer] (MEDICAID REPLACEMENT - HMO) Hi Goode [id number] Hi Goode Notes Date Note Type Note Provider Name and Address Organization Details Recorded Time 07/07/2025 text/html ROS as noted in the [...] past in his most recent 1 was . Previous PSAs were around 6. The recent elevation is thought to be secondary to some prostatic irritation.Patholo gy from his bladder cancer has been low-grade noninvasive. He returns today for surveillance cystoscopy. He denies any hematuria. Uche Velásquez Jr, MD [address] [place] [address], [address], [place], [address], [facility] - [place] & [place] 07/07/2025 13:26:48
--- OUTSIDE RECORDS SUMMARY | 2025-07-08 20:18 | XMS_ITS | Encounter Summary ---
Author Organization Healthcare Address [address] [place] [address] Care Team Providers Care Net Application Support Specialist Name Role Phone Justin Morales MD Primary Care Provider [phone] Encounter Details Date Type Department Care Team (Late st Contact Info) Description 01/31/2023 [facility] [address] [place] [address] Kayla Monroy DO [address] [place] [address] Increased prostate specific antigen (PSA) velocity (Primary [...] Primary documented in this encounter Care Teams Net Application Support Specialist Relationship Specialty Start Date End Date Justin Morales MD [address] [facility] [place] [address] PCP - General 01/27/21 documented as of this encounter
--- OUTSIDE RECORDS SUMMARY | 2025-07-08 20:18 | XMS_ITS | Clinical Summary ---
Author Organization Healthcare Address [facility] [place] [address] Care Team Providers Care Glass Designer Name Role Phone Justin Morales MD Primary Care Provider [phone] Social History Tobacco Use Types Packs/Day Years [...] Date Last Done Comments [facility]-Depression Screening 1966 [facility]-/Child/Adol SDOH Screenings 1966 [facility]- SDOH Screenings 1984 [facility]-Adult SDOH Screenings 1984 CT Colonography 2011 Colonoscopy 2011 FIT-DNA 2011 FIT 2011 FOBT 2011 Sigmoidoscopy 2011 [facility]-Colorectal Cancer Screening 2011 [facility]-Hepatitis B Vaccines (3 of 3 - Hep B Twinrix 3-dose series) 08/02/2018 03/02/2018, 12/31/2017 [facility]-Pneumococcal Vaccine: 50 + Years (2 of 2 - PCV) 09/07/2021 09/07/2020 [id number] Vaccine (3 - season) 2025 07/21/2021, 06/22/2021 [facility]-Influenza Vaccine (#1) 05/17/202506/22, 09/19/2020, [...] age to complete this topic Care Teams Glass Designer Relationship Specialty Start Date End Date Justin Morales MD [address] [place] [address] PCP - General 01/27/21
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
--- NOTE | 2025-07-08 20:53 | CT_ITS ---
PROCEDURE INFORMATION: Exam: CT Cervical Spine Without Contrast Exam date and time: 07/08/2025 9:14 PM Age: 60 years old Clinical indication: Neck pain; Additional info: Midline spinal tenderness TECHNIQUE: Imaging protocol: Computed tomography of the cervical spine without contrast. Radiation optimization: All CT scans at this facility use at least one of these dose optimization techniques: automated exposure control; mA and/or kV adjustment per patient size (includes targeted exams where dose is matched to clinical indication); or iterative reconstruction. COMPARISON: CT CERVICAL SPINE WO CON 07/08/2025 9:14 PM FINDINGS: Bones: Cervical vertebrae normal in height. No acute fracture. Mild levoconvex curvature. Maintained craniocervical junction. Multilevel degenerative changes. No severe neural foraminal narrowing or spinal canal stenosis. Lungs: Lung apices are normal. Soft tissues: Unremarkable. IMPRESSION: No acute osseous findings.
--- NOTE | 2025-07-08 20:55 | XR_ITS ---
PROCEDURE INFORMATION: Exam: XR Chest Exam date and time: 07/08/2025 9:14 PM Age: 60 years old Clinical indication: Pain; Chest pressure; Additional info: Tenderness TECHNIQUE: Imaging protocol: Radiologic exam of the chest. Views: 1 view. COMPARISON: CT ANGIO CHEST 02/01/2024 5:51 PM FINDINGS: Lungs: Unremarkable. No consolidation. Pleural spaces: Unremarkable. No pleural effusion. No pneumothorax. Heart/Mediastinum: Unremarkable. No cardiomegaly. Bones/joints: Unremarkable. IMPRESSION: No acute findings.
--- NOTE | 2025-07-08 20:55 | XR_ITS ---
PROCEDURE INFORMATION: Exam: XR Left Shoulder Exam date and time: 07/08/2025 9:14 PM Age: 60 years old Clinical indication: Pain; Shoulder; Left; Additional info: Left shoulder tenderness TECHNIQUE: Imaging protocol: Radiologic exam of the left shoulder. Views: 2 or more views. COMPARISON: CR XR SHOULDER LT MIN 2V 07/08/2025 9:14 PM FINDINGS: Bones/joints: Calcific tendinitis in the bicipital groove. Soft tissues: Normal. IMPRESSION: Calcific tendinitis in the bicipital groove.
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
[2025-07-08 21:00] VITALS: BP 121/60; PULSE 71; O2SAT 96
[2025-07-08 21:30] VITALS: BP 129/70; PULSE 65; O2SAT 96
[2025-07-08] MEDS: ACETAMINOPHEN 500MG TAB 1000 MG PO (22:01)
[2025-07-08] MEDS: IBUPROFEN 400 MG TABLET 800 MG PO (22:01)
--- NOTE | 2025-07-08 22:04 | PC.NURSE ---
pt refusing muscle relaxer that was ordered stating I'm afraid I wont be able to wake up in the morning
[2025-07-08 23:22] VITALS: BP 135/64; PULSE 67; RESP 16; TEMP 36.6; O2SAT 100
== END 2025-07-08 23:23 | disposition home or self-care (01) ==
PROVIDERS: Emergency Provider Student in an Organized Health Care Education/Training Program; PCP Family Medicine
DX: M25.512 Pain in left shoulder (principal); S40.012A Contusion of left shoulder, initial encounter; M54.2 Cervicalgia; M25.531 Pain in right wrist; M25.532 Pain in left wrist; Y04.8XXA Assault by other bodily force, initial encounter
CPT/HCPCS: 70450; 71045; 72125; 73030; 99283; 99285

== ENCOUNTER 2025-07-20 06:09 | Day surgery (SDC) | payer MEDICAID, SELFPAY ==
[2025-07-19 14:07] VITALS: BMI 29.7
[2025-07-20 06:36] VITALS: BP 104/61; PULSE 66; RESP 16; TEMP 36.8; O2SAT 94
[2025-07-20 06:38] LABS: POC Glucose,Bedside 332 gm/dL (70-110)
[2025-07-20] MEDS: LIDOCAINE 1% 20ML MDV 20 ML (07:12)
--- NOTE | 2025-07-20 07:27 | EXP.OP.NOTE ---
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 His left anterior shoulder region was prepped and draped in a sterile fashion. After infiltration with local anesthetic an elliptical incision was made around the lesion. The lesion was excised in toto and passed off for pathologic evaluation. Thermal cautery was utilized to achieve hemostasis. Skin was reapproximated with interrupted 4-0 nylon in an interrupted mattress fashion. Dressings were applied and the patient was discharged home in stable condition. Condition: stable Disposition: no change Specimens:: Left anterior shoulder skin neoplasm Complications:: No immediate
[2025-07-20 07:28] VITALS: BP 130/70; PULSE 65; RESP 16; TEMP 36.3; O2SAT 99
[2025-07-20 07:42] VITALS: BP 130/70; PULSE 65; RESP 16; TEMP 36.3; O2SAT 99
== END 2025-07-20 07:34 | disposition home or self-care (01) ==
PROVIDERS: PCP Family Medicine; Visit Provider Surgery
PROC: (CPT 11401; principal; 2025-07-20 07:00)
DX: L82.0 Inflamed seborrheic keratosis (principal); I10 Essential (primary) hypertension; E78.5 Hyperlipidemia, unspecified; E11.9 Type 2 diabetes mellitus without complications; Z79.84 Long term (current) use of oral hypoglycemic drugs; Z79.4 Long term (current) use of insulin; Z88.6 Allergy status to analgesic agent
CPT/HCPCS: 11401; 82962; J2003

== ENCOUNTER 2025-08-06 21:36 | Emergency (ER) | payer MEDICAID, SELFPAY ==
--- OUTSIDE RECORDS SUMMARY | 2025-08-06 21:50 | XMS_ITS | Clinical Summary ---
Author Organization Healthcare Address [facility] [place] [address] Care Team Providers Care Traffic Operations Engineer Name Role Phone Justin Morales MD Primary Care Provider [phone] Social History Tobacco Use Types Packs/Day Years [...] (2 of 2 - PCV) 09/07/2021 09/07/2020 [id number] Vaccine (3 - season) 2025 07/21/2021, 06/22/2021 [...] age to complete this topic Care Teams Traffic Operations Engineer Relationship Specialty Start Date End Date Justin Morales MD [address] [place] [address] PCP - General 01/27/21
--- OUTSIDE RECORDS SUMMARY | 2025-08-06 21:50 | XMS_ITS | Encounter Summary ---
Author Organization Healthcare Address [address] [place] [address] Care Team Providers Care Environmental Technical Officer Name Role Phone Justin Morales MD Primary Care Provider [phone] Encounter Details Date Type Department Care Team (Late st Contact Info) Description 01/31/2023 Community [facility] [address] [place] [address] Kayla Monroy DO [address] [place] [address] Increased prostate specific antigen (PSA) velocity (Primary [...] Primary documented in this encounter Care Teams Environmental Technical Officer Relationship Specialty Start Date End Date Justin Morales MD [address] [place] [address] PCP - General 01/27/21 documented as of this encounter
[2025-08-06 22:00] VITALS: BP 117/78; PULSE 76; RESP 18; TEMP 36.4; O2SAT 98; BMI 29.7
[2025-08-06 22:08] VITALS: BP 117/78; PULSE 76; RESP 18; TEMP 36.5; O2SAT 98
--- NOTE | 2025-08-06 22:17 | XR_ITS ---
PROCEDURE INFORMATION: Exam: XR Left Foot Exam date and time: 08/06/2025 10:21 PM Age: 60 years old Clinical indication: Injury or trauma; Other: Stepped on a nail; Other: Pain TECHNIQUE: Imaging protocol: Radiologic exam of the left foot. Views: 3 or more views. COMPARISON: No relevant prior studies available. FINDINGS: Bones/joints: No acute fracture identified. No radiopaque foreign body visible. Soft tissues: See Bones/joints finding. IMPRESSION: No acute findings.
[2025-08-06] MEDS: TET/DIPHTH/PERT-ADULT 0.5ML SYRINGE 0.5 ML IM (22:36)
--- NOTE | 2025-08-06 22:54 | ED_ITS ---
Discharge Plan Disposition Patient Disposition: Xfer Short-Term Hosp Condition: Fair Prescriptions Prescriptions: No Action insulin glargine [Lantus Solostar U-100 Insulin] 100 unit/mL (3 mL) insulin pen 25 unit SQ DAILY Qty: 15 2RF bupropion HCl 150 mg tablet sustained-release 12 hr 150 mg .ROUTE ONCE Rx Instructions: 150 mg once; (DME) lancets [Accu-Chek Softclix Lancets] Misc See Rx Instructions .ROUTE .MEDSUPPLY Qty: 100 2RF Rx Instructions: As directed (DME) blood-glucose meter [Accu-Chek Guide Glucose Meter] Misc See Rx Instructions .ROUTE .MEDSUPPLY Qty: 1 0RF Rx Instructions: As directed (DME) Accu-Chek Guide test strips Strip See Rx Instructions .ROUTE .MEDSUPPLY Qty: 50 2RF Rx Instructions: Test blood sugar 2x a day. (DME) pen needle, diabetic 32 gauge x 5/32 needle See Rx Instructions .ROUTE .MEDSUPPLY Qty: 1200 0RF Rx Instructions: As directed glipizide 10 mg tablet extended release 24hr See Rx Instructions .ROUTE BID Qty: 60 2RF Dose Instruction: Take 1 tablet by mouth once daily Rx Instructions: Take 1 tablet by mouth once daily twice a day; lisinopril-hydrochlorothiazide 20-12.5 mg tablet See Rx Instructions .ROUTE .COMPLEX Qty: 90 2RF Dose Instruction: TAKE TWO TABLETS BY MOUTH EVERY DAY FOR HIGH BLOOD PRESSURE Rx Instructions: TAKE TWO TABLETS BY MOUTH EVERY DAY FOR HIGH BLOOD PRESSURE insulin aspart U-100 [Novolog FlexPen U-100 Insulin] 100 unit/mL (3 mL) insulin pen 2 - 15 unit SQ ACHS Qty: 15 5RF Rx Instructions: Please check your blood sugar 30 minutes prior to eating 3 times a day. Please also check blood sugar before going to sleep. If blood sugar 151 to 200 mg/dL administer 2 units subcu short acting insulin If blood sugar 201 to 250 mg/dL administer 5 units subcu short acting insulin If blood sugar 251 to 300 mg/dL administer 8 units subcu short acting insulin If blood sugar 301 to 350 mg/dL administer 10 units subcu short acting insulin If blood sugar 351 to 400 mg/dL administer 15 units subcu short acting insulin If blood sugar over 400 mg/dL administer 15 units subcu short acting insulin and call doctor for further instructions. max daily 45 units atorvastatin 40 mg tablet 40 mg PO HS Qty: 90 1RF Referrals Follow up/Referrals: Iraida Reese APRN [Primary Care Provider, Family Practice] - See instructions Clinical Impressions Clinical Impression: Puncture wound of fourth toe of left foot, Cellulitis, Osteomyelitis Print Language Print Language: [place]raini Discharge ED Provider: Cayden Feldman General Adult HPI <Cayden Feldman DO - Last Filed: 08/07/25 01:44> General Chief complaint: Extremity Injury, Lower Stated complaint: AO 08/05 Stepped on nail/Left Foot Time Seen by Provider: 08/06/25 22:42 Mode of Arrival: Ambulatory Source of Information: Patient Description of Symptoms (Recalled from ER Triage Doc. by RN): Patient states yestrday he stepped on a nichole nail, states about a quarter inch was stuck in his fourth toe. states he just pulled it out, states he got the bleeding controlled and has been washing it. wound covered by bandaid. states he cannot take the pain, so he came to the ER. on examination, patient has a approxamitly 15mm hole, with vtissue showing on the fourth toe, patient has redness and swelling on the affected area, as well as the top of the foot. History of Present Illness HPI narrative: This is a 60-year-old male patient, with past medical history of hypertension, hyperlipidemia, and diabetes, who is presenting to the emergency department today for evaluation of left foot pain. Patient states that yesterday he was walking and a nail went through the bottom of his shoe and into the fourth toe of his left foot. He states that this morning he woke up with diffuse erythema of the fourth toe with erythema extending up the dorsal aspect of the midfoot and up to the proximal aspect of the lower leg to the level of the knee. He states that he has had chills throughout the day but he has not had any overt fevers. Related Data Home Medications ?Medication ?Instructions ?Recorded ?Confirmed bupropion HCl 150 mg tablet,12 hr 150 mg .Route ONCE 1 07/28/25 sustained-release Previous Rx's ?Medication ?Instructions ?Recorded blood-glucose meter (Accu-Chek #1 ea 04/16/24 Guide Glucose Meter) lancets (Accu-Chek Softclix #100 ea 04/16/24 Lancets) blood sugar diagnostic (Accu-Chek #50 ea 12/25/24 Guide test strips) pen needle, diabetic 32 gauge x #1,200 ea 01/28/25 insulin glargine 100 unit/mL (3 25 unit (0.25 mL) SQ D AILY 03/17/25 mL) subcutaneous pen (Lantus Diabetes #15 mL Solostar U-100 Insulin) glipizide 10 mg tablet, extended See Rx Instructions . Route BID #60 04/15/25 release 24 hr tabs insulin aspart U-100 100 unit/mL 2 - 15 unit (0.02 - 0 .15 mL) SQ 04/26/25 (3 mL) subcutaneous pen (Novolog ACHS hyperglycemia #1 5 mL FlexPen U-100 Insulin aspart) lisinopril 20 See Rx Instructions .Route 0 04/26/25 mg-hydrochlorothiazide 12.5 mg .COMPLEX #90 tabs tablet atorvastatin 40 mg tablet 40 mg PO HS #90 tabs 5 Allergies Allergy/AdvReac Type Severity Reaction Status Date / Time codeine AdvReac Intermediate Rash Verified 07/28/25 13:38 [facility] <Cayden Feldman DO - Last Filed: 08/07/25 01:44> [facility] Disclaimer: The information contained in this section may have been updated after the patient was seen, as this information can be updated by other users. Medical History Contact dermatitis and eczema Acute pancreatitis Eyelid laceration, left Encounter for screening colonoscopy Viral upper respiratory tract infection Broken tooth Fonseca catheter in place Bladder cancer Bladder CA in situ Bladder cancer Constipation High cholesterol HTN (hypertension) Diabetes Constipation Surgical History History of colonoscopy History of prostate surgery Family History Grandmother Diabetes Family history of myocardial infarction Mother Diabetes Family history of myocardial infarction Father Diabetes Grandfather Diabetes Family history of myocardial infarction Social History Smoking Status: Never smoker alcohol intake: never substance use type: denies use current occupational status: employed Travel in the last 8 weeks?: None caffeine: Yes Have you lived/traveled outside [place] in past 30 days?: No Contact w/someone who lives/traveled outside US past 30 days?: No Exposure to someone with infectious disease in past 14 days?: No Do you have a fever (greater than 100.4 F or 38 C)?: No Have you tested positive for COVID-19?: No Exposed to someone with COVID-19 in past 14 days?: No Do you have a sore throat?: No Do you have a cough?: No Do you have any weakness?: No Do you have any diarrhea?: No Are you experiencing any unusual bleeding?: No Do you have any muscle aches/pain?: No Do you have any abdominal pain?: No Are you experiencing loss of taste or smell?: No Other Medical History Have you received the Flu Vaccine for this season: No Have you received the Pneumonia Vaccine: Yes <Cayden Feldman DO - Last Filed: 08/07/25 01:44> ROS Obtained: Yes Systems reviewed as appropriate & no additional complaints except as documented Physical Exam <Cayden Feldman DO - Last Filed: 08/07/25 01:44> General General appearance: other (See MDM) Respiratory Respiratory exam: Present other (See MDM) Cardiovascular Cardiovascular exam: Present other (See MDM) Neurological Exam Neurological exam: Present other (See MDM) Medical Decision Making <Cayden Feldman DO - Last Filed: 08/07/25 01:44> Medical Records Medical records reviewed: Yes I reviewed the patient's medical records. Screening: Per USPSTF and CDC recommendations, given the prevalence of disease in our region, it is our hospital?s policy to screen for HIV and viral Hepatitis for all patients aged 18 and over and those with ongoing risk factors. Eduardo Inquiry Pt receiving controlled substance: No Eduardo was queried for this patient: No Vital Signs: 08/06/25 22:00 08/06/25 22:08 Temperature 97.6 F 97.7 F Temperature Source Oral Oral Pulse Rate 76 Pulse Rate [Left] 76 Respiratory Rate 18 18 Blood Pressure 117/78 Blood Pressure [Right Arm] 117/78 Blood Pressure Mean [Right Arm] 91 02 Sat by Pulse Oximetry 98 98 Oxygen Delivery Method Room Air Room Air Lab Data Lab Results 08/06/25 23:11: WBC 10.0, RBC 4.90, Hgb 14.4, Hct 42.3, MCV 86.3, MCH 29.4, MCHC 34.0, RDW 11.6, Plt Count 142, MPV 12.8 H, Neut % (Auto) 77.9, Lymph % (Auto) 10.2, [place] % (Auto) 11.0 H, Eos % (Auto) 0.5, Baso % (Auto) 0.2, Neut # (Auto) 7.8, Lymph # (Auto) 1.0, [place] # (Auto) 1.1 H, Eos # (Auto) 0.1, Baso # (Auto) 0.0, ESR 22 H, Sodium 128 L, Potassium 4.0, Chloride 96 L, Carbon Dioxide 25, Anion Gap 11.0, BUN 20, Creatinine 1.20, Estimated Creat Clear 81, Estimated GFR 62, Est GFR ( Amer) 75, Glucose 319 H, Calcium 10.1, Total Bilirubin 0.8, AST 35, ALT 51, Alkaline Phosphatase 80, C-Reactive Protein 110.1 H, Total Protein 7.3, Albumin 4.4, Globulin 2.9, Albumin/Globulin Ratio 1.5 08/06/25 23:11 08/06/25 23:11 Orders (Tests/Meds): ED MEDICATIONS Generic Name Dose Route Start Last Admin Trade Name Freq PRN Reason Stop Dose Admin Levofloxacin/Dextrose 750 mg in 150 mls @ 100 mls/hr 08/06/25 23:15 08/07/25 02:03 Levofloxacin 750mg/150ml Premix IV 08/16/25 23:14 Infused Q24H YUMI Infusion Clindamycin Phosphate 900 mg in 50 mls @ 100 mls/hr 08/07/25 02:30 08/07/25 02:04 Clindamycin 900mg/50ml D5w Premix IV 08/17/25 02:29 100 mls/hr Q8H YUMI Administration Sodium Chloride 10 ml 08/06/25 23:55 08/06/25 23:56 Sodium Chloride 0.9% 10ml Syr (Rad Only) IV 09/05/25 23:54 10 ml NEEDED PRN Administration Maintain IV Site Discontinued Medications Generic Name Dose Route Start Last Admin Trade Name Freq PRN Reason Stop Dose Admin Iopamidol 120 ml 08/06/25 23:55 08/06/25 23:56 Iopamidol-370 (76%);100ml Bottle IV 08/06/25 23:56 120 ml ONCE ONE Administration Tetanus/Reduced Diphtheria/Acell Pertussis 0.5 ml 08/06/25 22:18 08/06/25 22:36 Tet/Diphth/Pert-Adult 0.5ml Syringe IM 08/06/25 22:19 0.5 ml .ONCE ONE Administration ORDERS Category Date Time Status CT LLE w/ con Stat Cat Scan 08/06/25 23:02 Completed Foot XR left minimum 3 views [XR foot LT min 3V] Stat Exams 08/06/25 22:17 Completed CBC w/Auto Diff [Complete Blood Count Auto Diff] Stat Lab 08/06/25 23:11 Completed CMP [Comprehensive Metabolic Panel] Stat Lab 08/06/25 23:11 Completed CRP [C-Reactive Protein] Stat Lab 08/06/25 23:11 Completed ESR [Erythrocyte Sedimentation Rate] Stat Lab 08/06/25 23:11 Completed Lactate Venous Stat Lab 08/06/25 23:15 Ordered Blood Culture Stat Micro 08/06/25 23:23 Received Medical Decision Narrative: In summary, this a 60-year-old male patient who is presenting to the emergency department today for evaluation of his foot after stepping on a nail yesterday and having the nail penetrate the sole of the shoe and the plantar aspect of the fourth toe of the left foot. The patient's comorbidities include hypertension, high cholesterol, and diabetes. On initial evaluation of the patient they were resting comfortably in no acute distress and nontoxic in appearance. They are hemodynamically stable, saturating well room air, and are neurologically intact. On physical examination the patient has an open wound to the plantar aspect of the fourth toe of the left foot. The fourth toe is diffusely edematous and erythematous. There is erythema extending from the toe throughout the entirety of the dorsal aspect of the left foot. This erythema streaks in a spiraling fashion up the left leg to the level of the knee. There is diffuse warmth throughout the leg and the foot. Differential diagnosis includes cellulitis, deep space infection, tenosynovitis, necrotizing fasciitis, among others Workup was initiated with hematologic labs as well as blood cultures, lactate, CRP and sed rate. We have also obtained a CT scan of the entire left leg. Labs were personally interpreted by me and demonstrate no evidence of leukocytosis. No anemia. He is hyponatremic with a sodium of 128 and is also hypochloremic with a chloride of 96. His CRP is elevated markedly at 110. I have empirically treated the patient with Levaquin given that this nail penetrated the bottom of his shoe making him at risk for Pseudomonas in the setting of his diabetes. At the time of shift change CT scan of the left lower extremity was pending. This case was handed off to the oncoming provider who will follow-up on this and disposition the patient appropriately <Bria Coy MD - Last Filed: 08/07/25 02:24> Vital Signs: 08/06/25 22:00 08/06/25 22:08 Temperature 97.6 F 97.7 F Temperature Source Oral Oral Pulse Rate 76 Pulse Rate [Left] 76 Respiratory Rate 18 18 Blood Pressure 117/78 Blood Pressure [Right Arm] 117/78 Blood Pressure Mean [Right Arm] 91 02 Sat by Pulse Oximetry 98 98 Oxygen Delivery Method Room Air Room Air Lab Data Lab Results 08/06/25 23:11: WBC 10.0, RBC 4.90, Hgb 14.4, Hct 42.3, MCV 86.3, MCH 29.4, MCHC 34.0, RDW 11.6, Plt Count 142, MPV 12.8 H, Neut % (Auto) 77.9, Lymph % (Auto) 10.2, [place] % (Auto) 11.0 H, Eos % (Auto) 0.5, Baso % (Auto) 0.2, Neut # (Auto) 7.8, Lymph # (Auto) 1.0, [place] # (Auto) 1.1 H, Eos # (Auto) 0.1, Baso # (Auto) 0.0, ESR 22 H, Sodium 128 L, Potassium 4.0, Chloride 96 L, Carbon Dioxide 25, Anion Gap 11.0, BUN 20, Creatinine 1.20, Estimated Creat Clear 81, Estimated GFR 62, Est GFR ( Amer) 75, Glucose 319 H, Calcium 10.1, Total Bilirubin 0.8, AST 35, ALT 51, Alkaline Phosphatase 80, C-Reactive Protein 110.1 H, Total Protein 7.3, Albumin 4.4, Globulin 2.9, Albumin/Globulin Ratio 1.5 Orders (Tests/Meds): ED MEDICATIONS Generic Name Dose Route Start Last Admin Trade Name Freq PRN Reason Stop Dose Admin Levofloxacin/Dextrose 750 mg in 150 mls @ 100 mls/hr 08/06/25 23:15 08/07/25 02:03 Levofloxacin 750mg/150ml Premix IV 08/16/25 23:14 Infused Q24H [facility]UMI Infusion Clindamycin Phosphate 900 mg in 50 mls @ 100 mls/hr 08/07/25 02:30 08/07/25 02:04 Clindamycin 900mg/50ml D5w Premix IV 08/17/25 02:29 100 mls/hr Q8H YUMI Administration Sodium Chloride 10 ml 08/06/25 23:55 08/06/25 23:56 Sodium Chloride 0.9% 10ml Syr (Rad Only) IV 09/05/25 23:54 10 ml NEEDED PRN Administration Maintain IV Site Discontinued Medications Generic Name Dose Route Start Last Admin Trade Name Freq PRN Reason Stop Dose Admin Iopamidol 120 ml 08/06/25 23:55 08/06/25 23:56 Iopamidol-370 (76%);100ml Bottle IV 08/06/25 23:56 120 ml ONCE ONE Administration Tetanus/Reduced Diphtheria/Acell Pertussis 0.5 ml 08/06/25 22:18 08/06/25 22:36 Tet/Diphth/Pert-Adult 0.5ml Syringe IM 08/06/25 22:19 0.5 ml .ONCE ONE Administration ORDERS Category Date Time Status CT LLE w/ con Stat Cat Scan 08/06/25 23:02 Completed Foot XR left minimum 3 views [XR foot LT min 3V] Stat Exams 08/06/25 22:17 Completed CBC w/Auto Diff [Complete Blood Count Auto Diff] Stat Lab 08/06/25 23:11 Completed CMP [Comprehensive Metabolic Panel] Stat Lab 08/06/25 23:11 Completed CRP [C-Reactive Protein] Stat Lab 08/06/25 23:11 Completed ESR [Erythrocyte Sedimentation Rate] Stat Lab 08/06/25 23:11 Completed Lactate Venous Stat Lab 08/06/25 23:15 Ordered Blood Culture Stat Micro 08/06/25 23:23 Received Medical Decision Narrative: In summary, this a 60-year-old male patient who is presenting to the emergency department today for evaluation of his foot after stepping on a nail yesterday and having the nail penetrate the sole of the shoe and the plantar aspect of the fourth toe of the left foot. The patient's comorbidities include hypertension, high cholesterol, and diabetes. On initial evaluation of the patient they were resting comfortably in no acute distress and nontoxic in appearance. They are hemodynamically stable, saturating well room air, and are neurologically intact. On physical examination the patient has an open wound to the plantar aspect of the fourth toe of the left foot. The fourth toe is diffusely edematous and erythematous. There is erythema extending from the toe throughout the entirety of the dorsal aspect of the left foot. This erythema streaks in a spiraling fashion up the left leg to the level of the knee. There is diffuse warmth throughout the leg and the foot. Differential diagnosis includes cellulitis, deep space infection, tenosynovitis, necrotizing fasciitis, among others Workup was initiated with hematologic labs as well as blood cultures, lactate, CRP and sed rate. We have also obtained a CT scan of the entire left leg. Labs were personally interpreted by me and demonstrate no evidence of leukocytosis. No anemia. He is hyponatremic with a sodium of 128 and is also hypochloremic with a chloride of 96. His CRP is elevated markedly at 110. I have empirically treated the patient with Levaquin given that this nail penetrated the bottom of his shoe making him at risk for Pseudomonas in the setting of his diabetes. At the time of shift change CT scan of the left lower extremity was pending. This case was handed off to the oncoming provider who will follow-up on this and disposition the patient appropriately Coy: Upon my assumption of care patient is stable and resting comfortably. I agree with the assessment and plan from Dr. Feldman. CT left lower extremity was personally interpreted and I do not appreciate extensive gas in the tissue, but I received a phone call from the reading radiologist that there is a foci of likely osteomyelitis in the left fourth toe and she also reports there are a few small foci of air more proximally in the toe. She reports that necrotizing infection cannot be ruled out and recommends MRI. With this read, we called pharmacy and added clindamycin to the patient's antibiotic regimen for toxin coverage. He has already received levofloxacin. I recommended transfer to higher level of care to the patient and he is agreeable to this. I reached out to and spoke with Dr. Ma in the transfer center. We reviewed this case including patient's history, presentation, the rapid progression of streaking up the leg, and the concern for possible foci of air, possible necrotizing infection. She graciously accepted this patient for ER to ER transfer to [facility]. Patient was reassessed immediately prior to transfer, he remains GCS 15, hemodynamically stable, afebrile. He is appropriate for transfer and was transferred in stable condition by ambulance Critical Care <Cayden Feldman DO - Last Filed: 08/07/25 01:44> Critical Care Time Critical Care Time: No
--- NOTE | 2025-08-06 23:02 | CT_ITS ---
PROCEDURE INFORMATION: Exam: CT Left Lower Extremity With Contrast, Leg Exam date and time: 08/06/2025 11:51 PM Age: 60 years old Clinical indication: Injury or trauma; Other: Stepped on nail; Other: Expanding infection 4th toe up to knee; Puncture; Toes; Left fourth toe; Foreign body involvement not specified TECHNIQUE: Imaging protocol: CT of the left lower extremity with intravenous contrast was performed. Exam focused on the lower leg. Radiation optimization: All CT scans at this facility use at least one of these dose optimization techniques: automated exposure control; mA and/or kV adjustment per patient size (includes targeted exams where dose is matched to clinical indication); or iterative reconstruction. Contrast material: ISO 370; Contrast volume: 120 ml; Contrast route: INTRAVENOUS (IV); COMPARISON: CT LLE W/ CON 08/06/2025 11:51 PM FINDINGS: Bones/joints: There is a small suprapatellar joint effusion which shows mild wall thickening suggesting mildly complex fluid. Correlate clinically. Can not entirely exclude infection in the appropriate clinical setting. [id number] osteoarthritic degenerative changes involving the knee with marginal osteophytes involving the patellofemoral joint space. There is mild narrowing of the lateral femorotibial joint space with subchondral sclerosis and marginal osteophytes. There is sharpening of the tibial spines. A few small well corticated ossific densities adjacent to the lateral femoral tibial joint space likely reflect sequela of remote injury. [id number] marginal osteophytes also involve the medial femorotibial joint space. Mild subchondral cystic degenerative changes are present in the tibial plateau. No evidence of acute fracture or dislocation. Mild osteoarthritic degenerative changes involve the tibiotalar joint with mild joint space narrowing and marginal osteophytes. There are a few small well corticated ossific densities adjacent to the distal fibula which may reflect sequela of remote injury. Best seen on thin collimation series 12 images [id number] is suggestion of a subtle rounded ovoid lucency measuring approximately 3.7 mm involving the 4th middle phalanx. Findings are suspicious for a possible subtle area of bony erosive change/osteomyelitis given the clinical history. There are few small linear and punctate lucencies involving the slightly more proximal adjacent soft tissues of the 4th digit seen on series 12, images [id number] suspicious for small areas of subcutaneous emphysema. No additional areas of subcutaneous emphysema identified. No additional areas of osseous erosion. Soft tissues: There is soft tissue thickening and increased density involving the 4th digit likely reflecting edema/inflammation/cellulitis, and consistent with the clinical history. There is mild fat stranding involving the soft tissues of the plantar hindfoot which may reflect edema/inflammation/cellulitis. There is low-density soft tissue thickening involving the lateral aspect of the midfoot which may reflect soft tissue edema. No large focal fluid collections are identified to indicate abscess Vasculature: There are a few benign phleboliths in the pelvis. Other findings: Study quality is limited due to the large [id number]. IMPRESSION: 1. Subtle rounded ovoid lucency measuring approximately 3.7 mm involving the 4th middle phalanx suspicious for an area of bony erosive change/osteomyelitis given the clinical history. Recommend dedicated MR for further evaluation. 2. Soft tissue thickening and heterogeneity involving the soft tissues of the 4th digit suggesting edema/inflammation/cellulitis. A few small linear and rounded lucencies involving the slightly more proximal soft tissues of the 4th digit suggest tiny areas of subcutaneous emphysema and raise the question of cellulitis/necrotizing fasciitis in the correct clinical setting. Recommend dedicated MR for further evaluation. Fragment prompt orthopedic consultation. 3. Small mildly complex suprapatellar joint effusion. 4. [id number] osteoarthritis involving the knee and ankle. THIS REPORT CONTAINS FINDINGS THAT MAY BE CRITICAL TO PATIENT CARE. The findings were verbally communicated via telephone conference with DR COLMENARES at 1:54 AM EST on 08/07/2025. The findings were acknowledged and understood.
[2025-08-06] MEDS: LEVOFLOXACIN/D5W 750 MG/150 ML 750 MG/150 ML PIGGYBACK 100 MG IV (23:24)
[2025-08-06 23:32] LABS: Hematocrit 42.3 % (42.0-52.0); Hemoglobin 14.4 g/dL (14.1-18.0); Immature Granulocytes % 0.2 %; Mean Corpuscular HGB Conc 34.0 g/dL (31.8-35.4); Mean Corpuscular Hemoglobin 29.4 pg (27.0-31.2); Mean Corpuscular Volume 86.3 fl (80-94); Nucleated Red Blood Cells % 0 %; Platelet Count 142 K/mm3 (142-424); Red Blood Count 4.90 M/mm3 (4.60-6.20); Red Cell Distribution Width-SD 36.0 fL; White Blood Count 10.0 K/mm3 (4.8-10.8)
[2025-08-06 23:34] LABS: Alanine Aminotransferase 51 U/L (12-78); Albumin Level 4.4 g/dl (3.5-5.0); Albumin/Globulin Ratio 1.5 (1.1-1.8); Alkaline Phosphatase 80 U/L (38-126); Anion Gap 11.0 mEq/L (5-15); Aspartate Amino Transferase 35 U/L (17-59); Bilirubin,Total 0.8 mg/dl (0.2-1.3); Blood Urea Nitrogen 20 mg/dl (9-20); Calcium 10.1 mg/dl (8.4-10.2); Carbon Dioxide 25 mmol/L (22.0-30.0); Chloride 96 mmol/L (98-107); Creatinine Clearance Estimated 81 mL/min (50-200); Creatinine,Serum 1.20 mg/dl (0.66-1.25); Estimated Glomerular Filt Rate 62 ml/min (>60); GFR (African American) 75 ML/MIN (>60); Globulin 2.9 g/dL (1.3-3.2); Glucose 319 mg/dl (74-100); Potassium 4.0 mmoL/L (3.5-5.1); Sodium 128 mmol/L (136-145); Total Protein,Serum 7.3 g/dl (6.3-8.2)
[2025-08-06 23:39] LABS: C-Reactive Protein 110.1 mg/L (0-4)
[2025-08-06] MEDS: SODIUM CHLORIDE 0.9% 10ML SYR (RAD ONLY) 10 ML IV (23:56)
[2025-08-06] MEDS: IOPAMIDOL-370 (76%);100ML BOTTLE 120 ML IV (23:56)
[2025-08-07] MEDS: CLINDAMYCIN PHOSPHATE/D5W 900 MG/50 ML PIGGYBACK 100 MG IV (02:04)
[2025-08-07 04:11] VITALS: BP 134/78; PULSE 71; RESP 20; TEMP 36.6; O2SAT 98
== END 2025-08-07 04:11 | disposition short-term general hospital (02) ==
PROVIDERS: Emergency Provider Student in an Organized Health Care Education/Training Program; PCP Family Medicine
DX: M86.172 Other acute osteomyelitis, left ankle and foot (principal); L03.116 Cellulitis of left lower limb; S91.135A Puncture wound without foreign body of left lesser toe(s) without damage to nail, initial encounter; E11.65 Type 2 diabetes mellitus with hyperglycemia; E87.1 Hypo-osmolality and hyponatremia; I10 Essential (primary) hypertension; E78.5 Hyperlipidemia, unspecified; W45.0XXA Nail entering through skin, initial encounter; Z79.4 Long term (current) use of insulin
CPT/HCPCS: 73630; 73701; 80053; 85025; 85651; 86140; 87040; 90471; 90715; 96365; 96366; 99285; J0736; J1956; Q9967

== ENCOUNTER 2025-08-23 20:07 | Emergency (ER) | payer MEDICAID, SELFPAY ==
--- OUTSIDE RECORDS SUMMARY | 2025-08-07 05:18 | XMS_ITS | Encounter Summary ---
Author Organization Healthcare Address [address] [place] [address] Care Team Providers Care Tail Sawyer Name Role Phone Iraida Reese APRN Primary Care Provider [phone] Reason for Referral * Consultation (Routine) - Authorized Specialty Diagnoses / Procedures Referred By Contact Referred To Contact Vascular Surgery / [facility] Diagnoses Cellulitis and abscess of toe of left foot Andie Moyer MD [address] [address] Phone: tel: fax: Andie Moyer MD [address] [address] Phone: tel: fax: Referral ID Status Reason Start Date Expiration Date Visits Requested Visits Authorized [id number] Authorized Specialty Services Required 08/16/2025 02/15/2027 1 1 Reason for Visit * Reason Comments Foot Infection * Auth/Cert (Routine) Specialty Diagnoses / Procedures Referred By Contibis t Referred To Contact Diagnoses Cellulitis and abscess of toe of left foot necrotizing fasciitis of left foot Oriana Castelan MD [address] [place] [address] Phone: tel: fax: [facility] Inpatient [address] [place] [address] Referral ID Status Reason Start Date Expiration Date Visits Re quested Visits Authorized [id number] 1 1 Encounter Details Date Type Department Care Team (Latest Contact Info) Description 08/07/2025 5:18 AM EST - 08/16/2025 5:03 PM [facility] Hospital Encounter [facility] Inpatient [address] [place] [address] Zay Dave MD [address] [place] [address] Oriana Castelan MD [address] [place] [address] Fabienne Palm MD [address] [place] [address] Uche Fonseca MD [address] [place] [address] Cellulitis and abscess of toe [...] any time in the past 12 [facility], were you homeless or living in a retirement (including now)? No 08/09/[address] [facility] Utilities Answer Date Recorded In the [...] 11:10 AM EST Respiratory Rate 18 08/16/2025 3:1 6 AM EST Oxygen Saturation 96% 08/16/2025 11: 10 AM EST Inhaled Oxygen Concentration - - Weight 80.2 kg (176 lb 12.9 oz) 08/16/2025 5:38 AM EST Height 170.2 cm (5' 7 ) 08/07/2025 5:18 AM EST Body Mass Index 27.69 08/08/2025 8:19 AM EST documented in this encounter Functional Status * Question Answer Date of Assessment Author Precautions Environmental surveillance 08/16/2025 8:0 0 AM EST Marina Madison RN * Are you deaf or do you have serious difficulty hearing? Answer Date of Assessment Author No 08/16/2025 2:53 PM EST Marina Madison RN * Are you blind or do [...] 08/16/2025 2:53 PM Marina Velázquez RN * Question Answer Date of Assessment Author Precautions Environmental surveillance 08/16/2025 8:0 0 AM Marina Velázquez RN * Calculated C-SSRS Risk Score (Lifetime/Recent) Answer Date of Assessment Author No Risk Indicated 08/16/2025 8:00 AM Marina Velázquez RN * Question Answer Date of Assessment Author 1. Wish to be (Past 1 Month) No 025 8:00 AM Marina Velázquez RN 2. Non-Specific Active Suici ramsey Thoughts (Past 1 Month) No 08/16/2025 8:00 AM Madisyn Velázquez RN 6. Suicidal Behavior (Lifetime) No 8:00 AM Marina Velázquez RN documented as of this encounter Mental Status * Question Answer Entry Date Author Precautions Environmental surveillance 08/16/2025 8:0 0 AM Marina Velázquez RN * Because of a physical, mental, or emotional condition, do you have serious difficulty concentrating, remembering, or making decisions? (5 years old or older) Answer Entry Date Author No 08/16/2025 2:53 PM Marina Velázquez RN documented in this encounter Medications at Time [...] three times daily 300 each 11 08/16/2025 lisinopril-hydro CHLOROthiazide 20-12.5 MG tablet Take 2 tablets by mouth daily. multivitamin (Theragran-M) tablet Take 1 tablet by mouth daily. pen needle, diabetic 31G X 5 MM misc Use as directed with insulin pen. 100 each 11 08/16/2025 pen needle, diabetic 31G X 5 MM misc Use as directed with insulin pen. 100 each 11 08/16/2025 cefadroxil (Duricef) 500 MG capsuleIndicatio ns:Cellulitis and abscess of toe of left foot Take 1 capsule by mouth 2 times a day for 2 days. 4 capsule 08/16/2025 5 ibuprofen 400 MG tablet Take 1 tablet by mouth every 8 hours as needed for moderate pain for up to 5 days. 08/16/2025 5 documented as of this encounter Miscellaneous Notes * Progress Notes - Consuelo Solano RN [...] Activity Management: activity adjusted per tolerance Taken 08/15/2025 2220 by Amisha Velásquez RN Pressure Reduction Techniques: frequent weight shift encouraged * Progress Notes - Amisha Chang RN - 08/16/2025 2:10 PM EST Case Management Discharge Note Hi Goode 60 y.o. male CSN: [id number] Admission: 08/07/2025 5:18 AM Primary Problem: Cellulitis and abscess of toe of left foot Patient medically ready for discharge. Patient to discharge home with family to transport. Patient to follow up with wound care clinic. Primary Cook Boat: Primary Caregiver: Self Assistance Available at Discharge: [...] insurance) Follow-up: Andie Moyer MD [address] [facility] [address] [facility] [id number] Iraida Reese, CHAKA [address] [facility] [address] Schedule an appointment as soon as possible for a visit Bria Coy MD [address] [phone] All follow up provided in AVS. Discharge [...] PCP name and Address: Iraida Reese APRN [address] [place] [address] / [place] [address] Referring provider name and address: Bria Coy MD [address] [place] [address] Chief Concern, Brief History of Present Illness, [...] Your Medications These medications were sent to [facility] [place], [place] - [address] [facility] [address] Alcoh-Wipe sheet Blood Glucose Monitoring Suppl device [...] Center 08/31/2025 11:20 AM Renea Li PA [facility] Test Results Pending At Discharge [...] to 7 days of antibiotics after amputation. Vasc surgery rec'd: - Recommend WTD dressing changes [...] Proscar 5 mg daily Monitor UOP Notify of hematuria or no UOP for 6 hrs * Consults - Margaret Steve, RN - 08/16/2025 12:00 PM ESTAssociated Order(s): IP CONSULT TO DIABETIC EDUCATION Adult Diabetes Education Team Note Hi Goode 60 y.o. male CSN: [id number] This is a 60 y.o. male patient was admitted to [facility] with the diagnosis of Cellulitis, Dm education [...] Images were obtained for surgical purposes. See Xenos Elebill S's surgical note in the patient's chart for the findings. Micro: 08/07/25: Blood culture: no growth at day 3 08/07/2025 HIV fay negative 08/07/2025 HCV fay negative Antibiotics: Vancomycin:08/08/25-present Zosyn:08/07/25-present Assessment: Hi Goode is a 60 y.o. male with history of insulin-dependent T2DM, HTN, and HLD who presented to [facility] on 08/07/25 as a transfer from [facility] with a left 4th toe puncture wound of two days duration. 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 Pt reports he removed nail andcleaned wound. He developed pain/swelling of L 4th toe 08/06/2025 and seen at [facility] where he was given Levofloxacin and Clindamycin, [...] Oral q6h PRN Mery Garcia PA 1,000 mgat 08/14/252015 atorvastatin (Lipitor) tablet 40 mg 40 mg Oral Nightly Mery Garcia PA 40 mg at 08/15/252111 buPROPion SR (Wellbutrin SR) 12 hr tablet 150 mg 150 mg Oral Daily Mery Garcia PA 150 mg at 08/15/25 08 ceFAZolin (Ancef) injection 2 g 2 g Intravenous q8h Uche Fonseca MD 2 g at 08/16/25 0551 cholecalciferol (Vitamin D-3) tablet 1,000 Units 1,000 Units Oral Daily Mery Garcia PA1,000 Units at 08/15/25 0803 glucose (Glutose) 40 % oral gel 15-30 [...] Daily Fabienne Palm MD 250 mg at 08/15/25 08 finasteride (Proscar) tablet 5 mg 5 mg Oral Daily Mery Garcia PA 5 mg at 08/15/25 08 hydroCHLOROthiazide (HYDRODiuril) tablet 25 mg 25 mg Oral Daily Mery Garcia PA 25 mg at 08/15/25 08 ibuprofen tablet 400 mg 400 mg Oral [...] Daily Fabienne Palm MD 17 g at 804 sodium chloride [...] Fall Risk Flowsheets (Taken 08/14/20252103 by Tamara Lou, ORLIN) Safety Promotion/Fall Prevention: activity supervised fall prevention [...] Care Review Outcome: Ongoing, Progressing Flowsheets (Taken 08/14/2025703 by Matilde Ornelas, RN) Progress: improving Plan of Care Reviewed With: [...] to 7 days of antibiotics after amputation. [facility] surgery rec'd: - Recommend WTD dressing changes [...] Intervention: Maintain Blood Pressure Management Flowsheets (Taken 08/14/2025 07) Medication Review/Management: medications reviewed Goal: Maintenance of Osteoarthritis Symptom Control Outcome: Ongoing, Progressing Intervention: Maintain Osteoarthritis Symptom Control Flowsheets (Taken 08/14/2025 07) Activity Management: up ad jw Adaptive Equipment Use: used independently Assistive Device Utilized: crutches Medication Review/Management: medications reviewed Goal: Bariatric Home Regimen Maintained Outcome: Ongoing, Progressing Intervention: Maintain and Manage Postbariatric Surgery Care Flowsheets (Taken 08/14/2025 07) Medication Review/Management: medications reviewed Goal: Maintenance of [...] and vancomycin and starting cefazolin. PT/OT consulted Vasc surgery rec'd: - Recommend WTD dressing changes [...] Care Review Outcome: Ongoing, Progressing Flowsheets (Taken 08/13/2025 1035) Progress: improving Plan of Care Reviewed With: patient Goal: Patient-Specific Goal (Individualized) Outcome: Ongoing, Progressing Flowsheets (Taken 08/13/2025 0800) Patient/Family-Specific Goals (Include Timeframe): Pt will be [...] maintained Intervention: Prevent Skin Injury Flowsheets (Taken 08/13/2025 103) Body Position: heels elevated Skin Protection: protective footwear used transparent dressing maintained Intervention: Prevent and Manage VTE (Venous Thromboembolism) Risk Flowsheets (Taken 08/13/2025 1035) VTE Prevention/Management: previous patient education reinforced Intervention: Prevent Infection Flowsheets (Taken 08/13/2025 103) Infection Prevention: cohorting utilized environmental surveillance performed equipment surfaces disinfected hand hygiene promoted personal protective equipment utilized rest/sleep promoted single patient room provided Goal: Optimal Comfort and Wellbeing Outcome: Ongoing, Progressing Problem: Pain Acute Goal: Optimal Pain Control and Function Outcome: Ongoing, Progressing Intervention: Optimize Psychosocial Wellbeing Flowsheets (Taken 08/13/2025 103) Supportive Measures: active listening utilized counseling provided decision-making supported goal-setting facilitated guided imagery facilitated mindfulness techniques promoted positive reinforcement provided problem-solving facilitated relaxation techniques promoted self-care encouraged self-reflection promoted self-responsibility promoted verbalization of feelings encouraged Diversional Activities: television Spiritual Activities Assistance: affirmation provided personal rituals encouraged spiritual support provided Intervention: Prevent or Manage Pain Flowsheets (Taken 08/13/2025 103) Sensory Stimulation Regulation: television on quiet environment promoted Bowel Elimination Promotion: adequate fluid intake promoted Sleep/Rest Enhancement: consistent schedule promoted natural light exposure provided regular sleep/rest pattern promoted relaxation techniques promoted Medication Review/Management: medications reviewed Problem: Skin or Soft Tissue Infection Goal: Absence of Infection Signs and Symptoms Outcome: Ongoing, Progressing Intervention: Minimize and Manage Infection Progression Flowsheets (Taken 08/13/2025 1035) Infection Management: aseptic technique maintained Infection Prevention: cohorting utilized environmental surveillance performed equipment surfaces disinfected hand hygiene promoted personal protective equipment utilized rest/sleep promoted single patient room provided Isolation Precautions: precautions maintained protective Problem: Wound Goal: Optimal Wound Healing Outcome: Ongoing, Progressing Intervention: Promote Wound Healing Flowsheets (Taken 08/13/2025 1035) Sleep/Rest Enhancement: consistent schedule promoted natural light [...] Identify and Manage Contributors Flowsheets (Taken 08/13/2025 1035) Medication Review/Management: medications reviewed Self-Care Promotion: independence [...] Care Review Outcome: Ongoing, Progressing Flowsheets (Taken 08/13/2025 0450) Progress: improving Outcome Evaluation: Patient will ambute [...] Monitor Pain and Promote Comfort Flowsheets (Taken 08/13/2025 0450) Pain Management Interventions: medication (see MAR) care clustered diversional activity provided pain management plan reviewed with patient/caregiver pillow support provided Intervention: Provide Person-Centered Care Flowsheets (Taken 08/13/2025 045) Trust Relationship/Rapport: care explained choices provided questions [...] admission Level of Mobility: Ambulatory- community Mobility [place]: Independent gait without device History of Falls: [...] Mobility Exam: Supine to Sit Level of [place]: Modified [place] Physical/Nonphysical Assist: HOB elevated Bed Mobility Exam: Sit to Supine Level of [place]: Modified independence Physical/Nonphysical Assist: HOB elevated Transfers Transfer Exam: Sit to stand Level of [place]: Stand-by assist Physical/Nonphysical Assist: Verbal Cues, Minimal cues Assistive Device: Crutches, axillary Transfer Exam: Stand to Sit Level of [place]: Stand-by assist Physical/Nonphysical Assist: Verbal Cues, Minimal [...] provided. Standardized Assessments Standardized Assessments Standardized Assessments: [facility] 6-Clicks Mobility Assessment [facility] 6-Clicks Mobility Assessment Difficulty patient has turning [...] 3-5 steps with a railing?: A little [facility] 6-Clicks Mobility Assessment Total : 23 No [...] from the original note were not included. [facility] Department of Surgery Division of Vascular Surgery [...] 1859 08/11/25 1900 - 08/12/25 0659 08/12/25 0700 - 08/12/25 1323 Patient has no LDAs [...] (in remission), and depression who presented to [facility] with left fourth toe wound after stepping [...] (Individualized) Outcome: Ongoing, Progressing Flowsheets (Taken 08/12/2025 0858) Patient/Family-Specific Goals (Include Timeframe): pt will remain [...] Monitor Pain and Promote Comfort Flowsheets (Taken 08/12/2025 0904) Pain Management Interventions: medication (see MAR) position [...] Review Outcome: Ongoing, Progressing Flowsheets (Taken 08/12/2025 0401) Progress: improving Outcome Evaluation: PT A&Ox4, VSS [...] and Manage Fall Risk Flowsheets (Taken 08/12/2025 040) Safety Promotion/Fall Prevention: safety round/check completed Intervention: [...] Progressing Intervention: Optimize Psychosocial Wellbeing Flowsheets (Taken 08/12/2025400) Supportive Measures: active listening utilized Diversional Activities: television Spiritual Activities Assistance: affirmation provided Intervention: Develop Pain Management Plan Flowsheets (Taken 08/12/2025400) Pain Management Interventions: pain management plan reviewed [...] Minimize and Manage Infection Progression Flowsheets (Taken 08/12/2025400) Infection Management: aseptic technique maintained Fever Reduction/Comfort [...] PM EST Operative Note Date: 08/11/25 Location: [place] Name: Hi Goode, : 1965, Diagnoses: Pre-op Diagnosis Cellulitis and abscess of toe of left foot Post-op Diagnosis Cellulitis and abscess of toe of left foot Procedure(s): Left 4th toe amputation. Attending Surgeon(s): * Andie Moyer - Primary Order Tracer(s): * Aakash Frausto MD - Resident - [...] [facility] on 08/07/25 as a transfer from [facility] with a left 4th toe puncture wound of two days duration. 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 Pt reports he removed nail andcleaned wound. He developed pain/swelling of L 4th toe 08/06/2025 and seen at [facility] where he was given Levofloxacin and Clindamycin, [...] Mery Garcia PA 5 mg at 08/11/25 0824 hydroCHLOROthiazide (HYDRODiuril) tablet 25 mg 25 mg Oral Daily Mery Garcia PA 25 mg at 08/11/25 0824 ibuprofen tablet 400 mg 400 mg Oral [...] Daily Mery Garcia PA 40 mg at 08/11/25 08 melatonin tablet 3 mg 3 mg Oral Nightly PRN Mery Garcia PA meropenem (Merrem) 2 g in sodium chloride 0.9 % 100 mL IVPB 2 g Intravenous q8h Uche Fonseca MD 50 mL/hr at 08/11/25 0845 2 g at 08/11/25 0845 multivitamin (Theragran-M) tablet 1 tablet 1 tablet Oral Daily Mery Garcia PA 1 tabletat 08/11/25 0824 polyethylene glycol (Miralax) packet 17 g 17 g Oral Daily Fabienne Palm MD 17 g at 824 sodium chloride [...] 08/11/25 1227 ondansetron (Zofran) injection Intravenous PRN uLcia Reed CRNA, DNP 4 mg at 08/11/25 1301 phenylephrine in NS (Ric-Synephrine) 100 mcg/mL prefilled syringe Intravenous PRN Lucia Reed CRNA, DNP 100 mcg at 08/11/25 1303 propofol [...] injury was at suburban construction site in [facility]. Also has cats at home, potential for [...] Note Hi Goode 60 y.o. male CSN: [id number] Admission: 08/07/2025 5:18 AM Primary Problem: Cellulitis [...] VTE (Venous Thromboembolism) Risk Flowsheets (Taken 08/11/2025 1101) VTE Prevention/Management: education provided Intervention: Prevent Infection Flowsheets (Taken 08/11/2025 1101) Infection Prevention: rest/sleep promoted single patient room provided hand hygiene promoted Goal: Optimal Comfort and Wellbeing Outcome: Ongoing, Progressing Intervention: Monitor Pain and Promote Comfort Flowsheets (Taken 08/11/2025 08) Pain Management Interventions: declines diversional activity provided emotional support position adjusted pillow support provided Intervention: Provide Person-Centered Care Flowsheets (Taken 08/11/2025 1101) Trust Relationship/Rapport: care explained choices provided emotional [...] Prevent or Manage Pain Flowsheets (Taken 08/11/2025 1101) Sensory Stimulation Regulation: quiet environment promoted care clustered Bowel Elimination Promotion: privacy promoted ambulation promoted Sleep/Rest Enhancement: relaxation techniques promoted consistent schedule promoted Medication Review/Management: medications reviewed Problem: Skin or Soft Tissue Infection Goal: Absence of Infection Signs and Symptoms Outcome: Ongoing, Progressing Intervention: Minimize and Manage Infection Progression Flowsheets Taken 08/11/2025 110 Infection Management: aseptic technique maintained Fever Reduction/Comfort Measures: lightweight bedding lightweight clothing Infection Prevention: rest/sleep promoted single patient room provided hand hygiene promoted Taken 08/11/2025 0800 Isolation Precautions: protective precautions maintained Intervention: Provide Meticulous Infection Site Care Flowsheets (Taken 08/11/2025 110) Topical Inflammation Care: (Site assessed) other (see [...] Note Hi Goode 60 y.o. male CSN: [id number] Room/Bed OR/- Nutrition evaluation type: screen Reason [...] (98.6 ??F) Oxygen Therapy: None (Room air) [place] Coma Scale Score: 15 Garry Scale Score: [...] (Calculated): 27.65 Weight Evaluation: Overweight (BMI 25-29.9) Lynn Body Weight (kg): 67.2 Percent Lynn Body Weight: 118 Estimated Needs: Metabolic Cart Study Results: Current Nutrition Intake: Diet Order: Adult Diet Diet Texture: Regular Adult Carbohydrate Restriction: Consistent CHO 2 (3720-5756 Mundo, 80 g/meal) Percent Meals Eaten (%): 100% 08/11: Pt NPO today Diet Experience and Nutrition History: Diet Education Provided: Will monitor Pertinent home medications: atorvastatin, bupropion, vitamin D3, finasteride, glipizide, insulin, lisinopril-hydrochlorothiazide, MVI Lutheran needs: Nutrition Focused Physical Exam: Unable to [...] from the original note were not included. [facility] Department of Surgery Division of Vascular Surgery [...] remission), and depression who presented to the [facility] on 08/07/2025 with left fourth toe [...] History Administered Date(s) Administered Moderna COVID-19 Vaccine (Psychiatric Rn) 12+ years 06/22/2021, 07/21/2021, 01/25/2022 Moderna COVID-19 [...] (in remission), and depression who presented to [facility] with left fourth toe wound after stepping [...] meals Fabienne Palm MD 4 Units at 08/10/251634 insulin lispro (Admelog) injection - Correction - [...] Illicits: denies Lives: RAFAEL Pollock 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 REVIEW OF SYSTEMS 14 point review of [...] off Cody Ledezma MD PGY-3, Orthopaedic Surgery [facility] Orthopaedic Trauma Service Pager: [phone] Orthopaedic Recon/Spine/Foot and Ankle Service Pager: [phone] [1] Past Medical History: Diagnosis Date Essential [...] Oral, Daily, Mery Garcia PA,150 mg at 08/10/25835 cholecalciferol (Vitamin D-3) tablet 1,000 Units, 1,000 Units, Oral, Daily, Mery Garcia PA, 1,000 Units at 08/10/25835 glucose (Glutose) 40 % [...] Daily, Mery Garcia PA, 5 mg at 6 hydroCHLOROthiazide (HYDRODiuril) tablet 25 mg, 25 mg, Oral, Daily, Mery Garcia PA, 25mg at 08/10/25835 ibuprofen tablet 400 mg, 400 mg, Oral, q6h PRN, Mery Garcia PA insulin glargine-yfgn 100 UNIT/ML injection 20 Units, 20 Units, Subcutaneous, BID, Fabienne Palm MD, 20 Units at 08/10/25829 insulin lispro (Admelog) 100 units/mL injection - Correction - Resistant Dose, 0-10 Units, Subcutaneous, TID with meals, Fabienne Palm MD, 4 Units at 08/10/25 163 insulin lispro (Admelog) injection - Correction - Nighttime Dose, 0-3 Units, Subcutaneous, Twice atnight, Fabienne Palm MD, 1 Units at 08/09/25 2118 Insulin Lispro [...] at 08/10/25 1714, 1,250 mg at 08/10/25 171 [3] Allergies Allergen Reactions Codeine Itching [4] [...] with who does not drive. Cousin, Sabina ([phone]) who can provide with transportation to hospital for OPAT evaluation on Saturday 12/ PM. OPAT NN will continue to follow. Consuelo Solano RN 08/10/2025 * Progress Notes - Raymond Morris MD - 08/10/2025 4:43 PM EST Images from the original note were not included. [facility] Department of Surgery Division of Acute Care [...] Edited by: Raymond Morris MD at 08/10/2025 3813 Review of Systems: Relevant review of systems [...] 7 days Lab Units 08/09/25 0230 08/08/25 01108/07/25 0642 HEMOGLOBIN g/dL 14.4 13.4* 14.3 HEMATOCRIT % 43.0 39.8* 41.2 INR Results from last 7 days Lab Units 08/07/25 0642 INR 1.1 Cr Results from last 7 days Lab Units 08/09/2522908/08/2511408/07/25 0642 CREATININE mg/dL 1.18 1.45* 1.04 Lactate [...] Edited by: Raymond Morris MD at 08/10/2025 0838 Dispo: The EGS team is available for questions or concerns Ralph Morris MD General Surgery, PGY 2 Pager: [phone] Cosigned by Carli Murrell MD at 08/16/2025 [...] Monitor Pain and Promote Comfort Flowsheets (Taken 08/10/2025 153) Pain Management Interventions: rest Intervention: Provide Person-Centered Care Flowsheets (Taken 08/10/2025 153) Trust Relationship/Rapport: care explained choices provided emotional support provided empathic listening provided questions answered thoughts/feelings acknowledged reassurance provided questions encouraged Problem: Pain Acute Goal: Optimal Pain Control and Function Outcome: Ongoing, Progressing Intervention: Optimize Psychosocial Wellbeing Flowsheets (Taken 08/10/20251536) Supportive Measures: active listening utilized relaxation techniques promoted verbalization of feelings encouraged Diversional Activities: smartphone tablet Spiritual Activities Assistance: affirmation provided hope instilled Intervention: Develop Pain Management Plan Flowsheets (Taken 08/10/2025 1537) Pain Management Interventions: rest Intervention: Prevent or Manage Pain Flowsheets (Taken 08/10/2025 1537) Sensory Stimulation Regulation: quiet environment promoted Complementary Therapy: other (see comments) Bowel Elimination Promotion: adequate fluid intake promoted ambulation promoted Sleep/Rest Enhancement: relaxation techniques promoted consistent schedule promoted Medication Review/Management: medications reviewed dosing adjusted Problem: Skin or Soft Tissue Infection Goal: Absence of Infection Signs and Symptoms Outcome: Ongoing, Progressing Intervention: Minimize and Manage Infection Progression Flowsheets (Taken 08/10/2025 153) Infection Management: aseptic technique maintained cultures obtained [...] Meticulous Infection Site Care Flowsheets (Taken 08/10/2025 153) Topical Inflammation Care: other (see comments) Note: [...] fay negative Antibiotics: Vancomycin:08/08/25-present Zosyn:08/07/25-present Assessment: Hi oGode is a 60 y.o. male with history of insulin-dependent T2DM, HTN, and HLD who presented to [facility] on 08/07/25 as a transfer from [facility] with a left 4th toe puncture wound of two days duration. 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 Pt reports he removed nail andcleaned wound. He developed pain/swelling of L 4th toe 08/06/2025 and seen at [facility] where he was given Levofloxacin and Clindamycin, [...] mL 250 mL Intravenous q15 min PRN eMry Garcia PA Or glucagon (human recombinant) injection [...] Daily Fabienne Palm MD 17 g at 0 sodium chloride 0.9 % flush 10 mL [...] injury was at suburban construction site in [facility]. Also has cats at home, potential for [...] Review Outcome: Ongoing, Progressing Flowsheets (Taken 08/10/2025 0537) Progress: improving Outcome Evaluation: POC reviewed with [...] completed Intervention: Prevent Skin Injury Flowsheets (Taken 08/10/2025536) Body Position: weight shifting Skin Protection: transparent dressing maintained Intervention: Prevent and Manage VTE (Venous Thromboembolism) Risk Flowsheets (Taken 08/10/2025536) VTE Prevention/Management: education provided Intervention: Prevent Infection [...] - 08/09/2025 5:45 PM EST LATE ENTRY [facility] [...] meals, Fabienne Palm MD, 10 Units at 08/09/251244 insulin lispro (Admelog) injection - Correction - [...] Garcia PA, Last Rate: 36.7 mL/hr at 08/09/251245, 3.375 g at 08/09/251245 polyethylene glycol (Miralax) packet 17 g, 17 g, Oral, Daily, Fabienne Palm MD, 17 g at 08/09/25 09 [COMPLETED] Insert peripheral IV, , , Once [...] L 4th toe 08/06/2025 and seen at [facility]. Pt rx'ed on Levofloxacin and Clindamycin, tetanus [...] Re: antibiotics: For now, while inpatient at [facility], pending the above: Continue empiric, broad spectrum [...] Note Hi Goode 60 y.o. male CSN: [id number] Admission: 08/07/2025 5:18 AM Primary Problem: Cellulitis and abscess of toe of left foot Vise Hand reviewed chart and spoke with patient at bedside to complete this Initial Case Management Assessment. PCP: Iraida Reese APRN Emergency Contact: No emergency contact information on file. Insurance: Primary Visit Coverage Payer Plan Sponsor Code Group Number Group Name [employer]ICA[employer] MOLINA [employer]ICAID Primary Visit Coverage Subscriber Subscriber ID Subscriber Name Subscriber SSN Subscriber Address [id number] Hi Goode [id number] [address] [place] [address] Patient information: Primary Caregiver: Self Support System: Immediate family Daily Living Activities: Functional Status: Independent Living Arrangements: Spouse/Significant other Type of Residence: Private residence, Multi Level ([address]) [address] [address] Smoker in the Home?: No Current DME: [...] Dialysis Services: None Living Will/Advance Directive/Power of Electrical Calibrator /Guardian: Advance Directive: Patient does not have [...] Psychosocial Wellbeing Flowsheets (Taken 08/08/20252210 by Maximo Escamilla RN) Supportive Measures: active listening utilized decision-making supported [...] emergency contact information on file. [facility] Palm [facility] This dictation was prepared using voice [...] Oral, Daily, Mery Garcia PA,150 mg at 11/24/25 0917 cholecalciferol (Vitamin D-3) tablet 1,000 Units, 1,000 [...] meals, Mery Garcia PA, 5 Units at 08/09/25 1818 lisinopril tablet 40 mg, 40 mg, Oral, Daily, Mery Garcia PA, 40 mg at 08/09/25 0917 melatonin tablet 3 mg, 3 mg, Oral, [...] at 08/09/25 1853, 1,250 mg at 08/09/25 185 [2] Allergies Allergen Reactions Codeine Itching * Care Plan - Maximo Escamilla RN - 08/08/2025 10:14 PM EST Problem: Adult Inpatient Plan of Care Goal: Plan of Care Review Outcome: Ongoing, Progressing Flowsheets (Taken 08/08/20252210) Progress: improving Plan of Care Reviewed With: [...] Intervention: Prevent Skin Injury Flowsheets (Taken 08/08/2025 151) Skin Protection: protective footwear used Intervention: Prevent [...] Intervention: Provide Person-Centered Care Flowsheets (Taken 08/08/2025 151) Trust Relationship/Rapport: care explained choices provided reassurance [...] Intervention: Develop Pain Management Plan Flowsheets (Taken 08/08/20251514) Pain Management Interventions: quiet environment facilitated relaxation techniques promoted Intervention: Prevent or Manage Pain Flowsheets Taken 08/08/20251514 by Olga Tomlin, RN Sensory Stimulation Regulation: [...] Daily, Mery Garcia PA, 40 mg at 08/08/25 0805 melatonin tablet 3 mg, 3 mg, Oral, Nightly PRN, Mery Garcia PA multivitamin (Theragran-M) tablet 1 tablet, 1 tablet, Oral, Daily, Mery Garcia PA, 1 tablet at 08/08/25 0805 piperacillin-tazobactam (Zosyn) 3.375 g in sodium chloride 0.9% 100 mL IVPB (vial adapter required), 3.375 g, Intravenous, q6h, Mery Garcia PA, Last Rate: 36.7 mL/hr at 08/08/25 0801, 3.375 g at 08/08/25 0801 polyethylene glycol (Miralax) packet 17 g, 17 [...] will continue to follow. Submitted by: Amada Escobar PharmD 08/07/2025 7:14 PM * Consults - Yuliet [...] T2DM, HTN, and HLD who presented to [facility] on 08/07/25 as a transfer from [facility] with a left 4th toe puncture wound of two days duration. ID team were consulted to provide recommendations on antibiotics andfurther workup for puncture wound. Mr. Goode presented to [facility] on the evening of 08/06/25 after stepping on a nail that went through his left shoe on 08/05/25 while helping a friend replace windows. He removed the nail and washed out the wound with peroxide but soon developed worsened pain and chills with streaking on Saturday, 08/06. At [facility] he was started on levaquin and clindamycin, [...] above history. 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 The following complex inpatient infectious disease services were performed today: Complex antimicrobial therapy counseling and treatment * H&P - Mery Garcia PA - 08/07/2025 1:34 PM ESTAssociated Order(s): Consult to [facility] Images from the original note were not included. Consult to [facility] Consult performed by: Mery Garcia PA Consult ordered by: Zay Dave MD Reason for consult: Admission Subjective Chief complaint Left foot pain after stepping on a nail two days ago. History Of Present Illness Hi Gooed is a 60 y.o. male with PMH of insulin-dependent DM type II, HTN, and HLD, who presented 08/07/25 in transfer from [facility] with a left 4th toe puncture wound [...] Linked Group Acknowledged MERY GARCIA 08/07/25 1332 Sequential compression device Until discontinued Comments: SCDs must be in place and turned on EXCEPT when ACTIVELY ambulating. Acknowledged MERY GARCIA 08/07/25 1332 Okay To Give Nicotine Replacement Until discontinued Acknowledged MERY GARCIA T 08/07/25 1332 Adult diet Diet texture: Regular; Carbohydrate restriction: Consistent Carb 2 (80 gm max/meal) Diet effective now Acknowledged MERY GARCIA 08/07/25 1332 Full code Continuous Acknowledged MERY GRACIA 08/07/25 1332 Admit to inpatient Once Completed MERY GARCIA 08/07/25 1332 Mobility Orders Until discontinued Acknowledged MERY GARCIA 08/07/25 1332 Notify physician (specify parameters) Until discontinued Acknowledged MERY GARCIA 08/07/25 1332 Insert peripheral IV Once Placed in And Linked Group Completed MERY GARCIA 08/07/25 1332 Saline lock IV Once Placed in And Linked Group Completed MERY GARCIA 08/07/25 1002 Consult to [facility] Medicine [facility] Once Specialty: Internal Medicine Provider: (Not yet assigned) ALIS Montague 08/07/25 1002 ED to floor bed request Once Completed ALIS REILLY 08/07/25 0810 Consult to Emergency General Surgery Once Provider: (Not yet assigned) ALIS Montague 08/07/25 0626 Hepatitis C Antibody - ED Once Final result ALIS REILLY 08/07/25 06 ED Protocol - HIV 1/2 Antibody/Antigen Screen Once Final result ALIS REILLY 08/07/25 06 ED HIV 1/2 Antibody/Antigen Screen w/Reflex to HIV 1/2 Differentiation PROCEDURE ONCE Final result ALIS REILLY 08/07/25 06 CBC w/diff STAT Final result ALIS REILLY [...] 08/07/25625 Sed rate, automated STAT Final result ALIS REILLY ED Course as of 08/07/251827 Sat Aug [...] None Disposition Admit Admitting/Attending Physician: ORIANA CASTELAN [[id number]] Provider Care Team: EZE MINER 7 [[id number]] Are they the primary team?: [...] AM EST Patient arrives via EMS from [facility] for possible nec fasc in left 4th toe. Patient stepped on nail on . A&Ox4 on arrival. documented in this encounter Plan of Treatment Upcoming Encounters Date Type Department Care Team (Late st Contact Info) Description 08/31/2025 11:20 AM EST Office Visit [facility] [address] [place] [address] Renea Li, ILEANA [address] [place] [address] Pending Results Name Type Priority Associated Diagnoses Date /Time AFB Culture, Non Respiratory Source and Acid Fast Stain Microbiology Routine Cellulitis and abscess of toe of left foot 08/11/2025 1:00 PM EST Fungal Culture, Tissue and BACILIO Microbiology Routine Cellulitis and abscess of toe of left foot 08/11/2025 1:00 PM EST AFB Culture, Non Respiratory Source and Acid Fast Stain Microbiology Routine Cellulitis and abscess of toe of left foot 08/11/2025 1:02 PM EST Fungal Culture, Tissue and BACILIO Microbiology Routine Cellulitis and abscess of toe [...] - 99 mg/dL 08/16/2025 4:20 PM EST [facility] Comment:Accuracy of a glucos e result [...] for testing. Comment 08/16/2025 4:20 PM EST [facility] Contract Sheltered Workshop Supervisor ID Carmen Reyes 4:20 PM EST [facility] Device ID [id number] 08/16/2025 4:20 PM EST [facility] Specimen Type POC Capillary 08/16/2025 4:20 PM EST [facility] Blood Capillary blood specimen / Unknown 08/16/2025 4:18 PM EST 08/16/2025 4:20 PM EST Uche Fonseca MD LAB POINT OF CARE TE ST DOCKED DEVICE UNSOLICITED RESULTS Final Result Performing Organization Address [facility] Co de Phone Number [facility] [address] [place] [address] * (ABNORMAL) POCT glucose meter (08/16/2025 11:12 AM EST) [facility] POCT Glucose 269(H) 74 - 99 mg/dL [...] 08/16/2025 11:13 AM EST [facility] Contract Sheltered Workshop Supervisor ID Carmen Reyes 11:13 AM EST [facility] Device ID [id number] 08/16/2025 11:13 AM EST [facility] Specimen Type POC Capillary 08/16/2025 11:13 AM EST [facility] Blood Capillary blood specimen / Unknown 08/16/2025 11:12 AM EST 08/16/2025 11:13 AM EST Uche Fonseca MD LAB POINT OF CARE TE ST DOCKED DEVICE UNSOLICITED RESULTS Final Result Performing Organization Address [facility] Co de Phone Number [facility] [address] [place] [address] * (ABNORMAL) POCT glucose meter (08/16/2025 8:02 AM EST) [facility] POCT Glucose 182(H) 74 - 99 mg/dL [...] 08/16/2025 8:03 AM EST [facility] Contract Sheltered Workshop Supervisor ID Carmen Reyes 8:03 AM EST [facility] Device ID [id number] 08/16/2025 8:03 AM EST [facility] Specimen Type POC Capillary 08/16/2025 8:03 AM EST [facility] Blood Capillary blood specimen / Unknown 08/16/2025 8:02 AM EST 08/16/2025 8:03 AM EST Uche Fonseca MD LAB POINT OF CARE TE ST DOCKED DEVICE UNSOLICITED RESULTS Final [facility] [address] [place] [address] * Phosphorus, Plasma (08/16/2025 2:57 AM EST) Phosphorus, Plasma 2.6 2.5 - 4.5 mg/dL 08/16/2025 3:36 AM EST [facility] Blood Venous blood specimen / Unknown Venipuncture / Unknown 08/16/2025 2:57 AM EST 08/16/2025 3:05 AM EST Fabienne Palm MD LAB BLOOD ORDERABLES [place] [address] * Magnesium, Plasma (08/16/2025 2:57 AM EST) Magnesium, Plasma 2.1 1.9 - 2.4 mg/dL 08/16/2025 3:36 AM EST [facility] Blood Venous blood specimen / Unknown Venipuncture / Unknown 08/16/2025 2:57 AM EST 08/16/2025 3:05 AM EST us Fabienne Palm MD LAB BLOOD ORDERABLES [place] [address] * (ABNORMAL) Comprehensive metabolic panel (08/16/2025 2:57 AM EST) Glucose, Plasma 198(H) 74 - 99 mg/dL 08/16/2025 3:36 AM [facility] BUN, Plasma 30(H) 7 - 21 mg/dL 08/16/2025 3:36 AM [facility] Creatinine, Plasma 1.03 0.70 - 1.20 mg/dL 08/16/2025 3:36 AM [facility] BUN/Creatinine Ratio 29 08/16/2025 3:36 AM [facility] Sodium, Plasma 133(L) 136 - 145 mmol/L 08/16/2025 3:36 AM [facility] Potassium, Plasma 4.1 3.6 - 4.9 mmol/L 08/16/2025 3:36 AM [facility] Chloride, Plasma 100 97 - 107 mmol/L 08/16/2025 3:36 AM [facility] CO2, Plasma 22 22 - 29 mmol/L 08/16/2025 3:36 AM [facility] Anion Gap 11 6 - 16 mmol/L 08/16/2025 3:36 AM [facility] Total Calcium, Plasma 9.5 8.9 - 10.2 mg/dL 08/16/2025 3:36 AM [facility] Total Protein 6.4 6.3 - 7.9 g/dL 08/16/2025 3:36 AM [facility] Albumin, Plasma 3.3(L) 3.5 - 5.2 g/dL 08/16/2025 3:36 AM [facility] AST, Plasma 57(H) 10 - 50 U/L 08/16/2025 3:36 AM [facility] ALT, Plasma 55(H) 10 - 50 U/L 08/16/2025 3:36 AM [facility] Alkaline Phosphatase, Plasma 90 40 - 115 U/L 08/16/2025 3:36 AM [facility] Total Bilirubin, Plasma <0.2(L) 0.2 - 1.1 mg/dL 08/16/2025 3:36 AM [facility] eGFRcr 83.7 mL/min/1.7 3m*2 08/16/2025 3:36 AM [facility] Comment:Reported eGFRcr in m L/min/1.73m2 is based the CKD-EPI 2020 equation that does not use a race coefficient. Blood Venous blood specimen / Unknown Venipuncture / Unknown 08/16/2025 2:57 AM EST 08/16/2025 3:05 AM EST Mery TEJEDA LAB BLOOD ORDERABLES F inal Result [facility] [address] [place] [address] * (ABNORMAL) CBC and differential (08/16/2025 2:57 AM EST) WBC Count 6.91 3.70 - 10.30 10*3/uL LAB HEMATOLOGY METHOD 08/16/2025 3:17 AM EST [facility] RBC Count 4.69 4.60 - 6.10 10*6/uL LAB HEMATOLOGY METHOD 08/16/2025 3:17 AM EST [facility] HGB 13.7 13.7 - 17.5 g/dL LAB HEMATOLOGY METHOD 08/16/2025 3:17 AM EST [facility] HCT 40.1 40.0 - 51.0 % LAB HEMATOLOGY METHOD 08/16/2025 3:17 AM EST [facility] Platelet Count 214 155 - 369 10*3/uL LAB HEMATOLOGY METHOD 08/16/2025 3:17 AM EST [facility] MCV 86 79 - 98 fL LAB HEMATOLOGY METHOD 08/16/2025 3:17 AM EST [facility] MCH 29.2 26.0 - 32.0 pg LAB HEMATOLOGY METHOD 08/16/2025 3:17 AM EST [facility] MCHC 34.2 30.7 - 35.5 g/dL LAB HEMATOLOGY METHOD 08/16/2025 3:17 AM EST [facility] RDW 11.4(L) 11.5 - 14.5 % LAB HEMATOLOGY METHOD 08/16/2025 3:17 AM EST [facility] MPV 11.8 8.8 - 12.5 fL LAB HEMATOLOGY METHOD 08/16/2025 3:17 AM EST [facility] nRBC 0.0 <=0.0 per 100 WBCs LAB HEMATOLOGY METHOD 08/16/2025 3:17 AM EST [facility] Differential Type Automated LAB HEMATOLOGY METHOD 08/16/2025 3:17 AM EST [facility] Neutrophils % 59 % LAB HEMATOLOGY METHOD 08/16/2025 3:17 AM EST [facility] Lymphocytes % 24 % LAB HEMATOLOGY METHOD 08/16/2025 3:17 AM EST [facility] Monocytes % 11 % LAB HEMATOLOGY METHOD 08/16/2025 3:17 AM EST [facility] Eosinophils % 4 % LAB HEMATOLOGY METHOD 08/16/2025 3:17 AM EST [facility] Basophils % 1 % LAB HEMATOLOGY METHOD 08/16/2025 3:17 AM EST [facility] Immature Granulocytes % 1 % LAB HEMATOLOGY METHOD 08/16/2025 3:17 AM EST [facility] Neutrophils Absolute 4.13 1.60 - 6.10 10*3/uL LAB HEMATOLOGY METHOD 08/16/2025 3:17 AM EST [facility] Lymphocytes Absolute 1.66 1.20 - 3.90 10*3/uL LAB HEMATOLOGY METHOD 08/16/2025 3:17 AM EST [facility] Monocytes Absolute 0.75 0.30 - 0.90 10*3/uL LAB HEMATOLOGY METHOD 08/16/2025 3:17 AM EST [facility] Eosinophils Absolute 0.25 0.00 - 0.50 10*3/uL LAB HEMATOLOGY METHOD 08/16/2025 3:17 AM EST [facility] Basophils Absolute 0.08 0.00 - 0.10 10*3/uL LAB HEMATOLOGY METHOD 08/16/2025 3:17 AM EST [facility] Immature Granulocytes Absolute 0.04 0.00 - 0.06 10*3/uL LAB HEMATOLOGY METHOD 08/16/2025 3:17 AM EST [facility] Blood Venous blood specimen / Unknown Venipuncture / Unknown 08/16/2025 2:57 AM EST 08/16/2025 3:06 AM EST [facility] - 08/16/2025 3:17 AM EST Therapeutic decision making should be based on absolute values, rather than percentages. us Mery TEJEDA LAB BLOOD ORDERABLES F inal Result [facility] [address] [place] [address] * (ABNORMAL) C-Reactive Protein, Plasma (08/16/2025 2:57 AM EST) [facility] CRP, Plasma 8.6(H) <=8.0 mg/L 08/16/2025 3:36 AM EST [facility] Blood Venous blood specimen / Unknown Venipuncture / Unknown 08/16/2025 2:57 AM EST 08/16/2025 3:05 AM EST Narrative [facility] - 08/16/2025 3:36 AM EST This CRP test is appropriate for assessment of infection, systemic inflammation and/or tissue injury. To assess cardiovascular disease risk order high sensitivity CRP (CRPH). us Mery TEJEDA LAB BLOOD ORDERABLES F inal Result [facility] [address] [place] [address] * (ABNORMAL) POCT glucose meter (08/15/2025 7:29 PM EST) [facility] POCT Glucose 260(H) 74 - 99 mg/dL 08/15/2025 7:30 PM EST [facility] Comment:Accuracy of a glucos e result [...] for testing. Comment 08/15/2025 7:30 PM EST [facility] Contract Sheltered Workshop Supervisor ID Carmen 08/15/2025 7:30 PM EST [facility] Device ID [id number] 08/15/2025 7:30 PM EST [facility] Specimen Type POC Capillary 08/15/2025 7:30 PM EST [facility] Blood Capillary blood specimen / Unknown 08/15/2025 7:29 PM EST 08/15/2025 7:30 PM EST us Uche Fonseca MD LAB POINT OF CARE TE ST DOCKED DEVICE UNSOLICITED RESULTS Final Result Performing Organization Address City/[facility]/ZIP Co de Phone Number [facility] [address] [place] [address] * (ABNORMAL) POCT glucose meter (08/15/2025 4:03 PM EST) [facility] POCT Glucose 195(H) 74 - 99 mg/dL [...] testing. Comment 08/15/2025 4:05 PM EST [facility] Contract Sheltered Workshop Supervisor ID Mare Dunne 08/15/2025 4:05 PM EST [facility] Device ID [id number] 08/15/2025 4:05 PM EST [facility] Specimen Type POC Capillary 08/15/2025 4:05 PM EST [facility] Blood Capillary blood specimen / Unknown 08/15/2025 4:03 PM EST 08/15/2025 4:05 PM EST Uche Fonseca MD LAB POINT OF CARE TE ST DOCKED DEVICE UNSOLICITED RESULTS Final Result Performing Organization Address [facility] Co de Phone Number [facility] [address] [place] [address] * (ABNORMAL) POCT glucose meter (08/15/2025 11:00 AM EST) [facility] POCT Glucose 224(H) 74 - 99 mg/dL [...] 08/15/2025 11:01 AM EST [facility] Contract Sheltered Workshop Supervisor ID Mare Dunne 08/15/2025 11:01 AM EST [facility] Device ID [id number] 08/15/2025 11:01 AM EST [facility] Specimen Type POC Capillary 08/15/2025 11:01 AM EST [facility] Blood Capillary blood specimen / Unknown 08/15/2025 11:00 AM EST 08/15/2025 11:01 AM EST Uche Fonseca MD LAB POINT OF CARE TE ST DOCKED DEVICE UNSOLICITED RESULTS Final Result Performing Organization Address City/[facility] de Phone Number [facility] [address] [place] [address] * (ABNORMAL) POCT glucose meter (08/15/2025 7:14 [...] testing. Comment 08/15/2025 7:16 AM EST [facility] Contract Sheltered Workshop Supervisor ID Mare Dunne 08/15/2025 7:16 AM EST [facility] Device ID [id number] 08/15/2025 7:16 AM EST [facility] Specimen Type POC Capillary 08/15/2025 7:16 AM EST [facility] Blood Capillary blood specimen / Unknown 08/15/2025 7:14 AM EST 08/15/2025 7:16 AM EST Uche Fonseca MD LAB POINT OF CARE TE ST DOCKED DEVICE UNSOLICITED RESULTS Final Result Performing Organization Address [facility] Phone Number [facility] [address] [place] [address] * (ABNORMAL) POCT glucose meter (08/15/2025 3:10 [...] for testing. Comment 08/15/2025 3:12 AM EST [facility] Contract Sheltered Workshop Supervisor ID Willian Hicks 3:12 AM EST [facility] Device ID [id number] 08/15/2025 3:12 AM EST [facility] Specimen Type POC Capillary 08/15/2025 3:12 AM EST [facility] Blood Capillary blood specimen / Unknown 08/15/2025 3:10 AM EST 08/15/2025 3:12 AM EST Uche Fonseca MD LAB POINT OF CARE TE ST DOCKED DEVICE UNSOLICITED RESULTS Final Result Performing Organization Address City/[facility]/ZIP Co de Phone Number [facility] [address] [place] [address] * Phosphorus, Plasma (08/15/2025 1:24 AM EST) Phosphorus, Plasma 3.2 2.5 - 4.5 mg/dL 08/15/2025 1:57 AM EST [facility] Blood Venous blood specimen / Unknown Venipuncture / Unknown 08/15/2025 1:24 AM EST 08/15/2025 1:28 AM EST Fabienne Palm MD LAB BLOOD ORDERABLES Coleen l Result [facility] [address] [place] [address] * Magnesium, Plasma (08/15/2025 1:24 AM EST) Magnesium, Plasma 2.0 1.9 - 2.4 mg/dL 08/15/2025 1:57 AM EST [facility] Blood Venous blood specimen / Unknown Venipuncture / Unknown 08/15/2025 1:24 AM EST 08/15/2025 1:28 AM EST us Fabienne Palm MD LAB BLOOD ORDERABLES Coleen santizo Result [facility] [address] [place] [address] * (ABNORMAL) Basic metabolic panel (08/15/2025 1:24 AM EST) Glucose, Plasma 255(H) 74 - 99 mg/dL 08/15/2025 1:57 AM EST [facility] BUN, Plasma 35(H) 7 - 21 mg/dL 08/15/2025 1:57 AM EST [facility] Creatinine, Plasma 1.21(H) 0.70 - 1.20 mg/dL 08/15/2025 1:57 AM EST [facility] BUN/Creatinine Ratio 29 08/15/2025 1:57 AM EST [facility] Sodium, Plasma 134(L) 136 - 145 mmol/L 08/15/2025 1:57 AM EST [facility] Potassium, Plasma 4.6 3.6 - 4.9 mmol/L 08/15/2025 1:57 AM EST [facility] Chloride, Plasma 99 97 - 107 mmol/L 08/15/2025 1:57 AM EST [facility] CO2, Plasma 22 22 - 29 mmol/L 08/15/2025 1:57 AM EST [facility] Anion Gap 13 6 - 16 mmol/L 08/15/2025 1:57 AM EST [facility] Total Calcium, Plasma 9.3 8.9 - 10.2 mg/dL 08/15/2025 1:57 AM EST [facility] eGFRcr 69.0 mL/min/1.7 3m*2 08/15/2025 1:57 AM EST [facility] Comment:Reported eGFRcr in m L/min/1.73m2 is based the CKD-EPI 2020 equation that does not use a race coefficient. Blood Venous blood specimen / Unknown Venipuncture / Unknown 08/15/2025 1:24 AM EST 08/15/2025 1:28 AM EST us Uche Fonseca MD LAB BLOOD ORDERABLES Final Re sult [facility] [address] [place] [address] * (ABNORMAL) POCT glucose meter (08/14/2025 7:54 PM EST) Pathologist [facility] POCT Glucose 310(H) 74 - 99 mg/dL [...] for testing. Comment 08/14/2025 7:55 PM EST [facility] [employer] Supervisor ID Willian Hicks 7:55 PM EST [facility] Device ID [id number] 08/14/2025 7:55 PM EST [facility] Specimen Type POC Capillary 08/14/2025 7:55 PM EST [facility] Blood Capillary blood specimen / Unknown 08/14/2025 7:54 PM EST 08/14/2025 7:55 PM EST Uche Fonseca MD LAB POINT OF CARE TE ST DOCKED DEVICE UNSOLICITED RESULTS Final Result Performing Organization Address [facility]/ZIP Co de Phone Number [facility] [address] [place] [address] * (ABNORMAL) POCT glucose meter (08/14/2025 4:06 PM EST) [facility] POCT Glucose 284(H) 74 - 99 mg/dL [...] 08/14/2025 4:08 PM EST [facility] Contract Shel[employer] Supervisor ID Joey Rutledge 08/14/2025 4:08 PM EST [facility] Device ID [id number] 08/14/2025 4:08 PM EST [facility] Specimen Type POC Capillary 08/14/2025 4:08 PM EST [facility] Blood Capillary blood specimen / Unknown 08/14/2025 4:06 PM EST 08/14/2025 4:08 PM EST Uche Fonseca MD LAB POINT OF CARE TE ST DOCKED DEVICE UNSOLICITED RESULTS Final Result Performing Organization Address City/[facility] Co de Phone Number [facility] [address] [place] [address] * (ABNORMAL) POCT glucose meter (08/14/2025 11:10 AM EST) POCT Glucose 245(H) 74 - 99 mg/dL 08/14/2025 11:12 AM EST [facility] Comment:Accuracy of a glucos e result [...] for testing. Comment 08/14/2025 11:12 AM EST [facility] [employer] Supervisor ID Joey Rutledge 08/14/2025 11:12 AM EST [facility] Device ID [id number] 08/14/2025 11:12 AM EST [facility] Specimen Type POC Capillary 08/14/2025 11:12 AM EST [facility] Blood Capillary blood specimen / Unknown 08/14/2025 11:10 AM EST 08/14/2025 11:12 AM EST Uche Fonseca MD LAB POINT OF CARE TE ST DOCKED DEVICE UNSOLICITED RESULTS Final Result Performing Organization Address City/[facility] Co de Phone Number [facility] [address] [place] [address] * (ABNORMAL) POCT glucose meter (08/14/2025 7:13 AM EST) POCT Glucose 206(H) 74 - 99 mg/dL 08/14/2025 7:15 AM EST [facility] Comment:Accuracy of [...] Comment 08/14/2025 7:15 AM EST [facility] Contract Sheltered Workshop Supervisor ID Joey Rutledge 08/14/2025 7:15 AM EST [facility] Device ID [id number] 08/14/2025 7:15 AM EST [facility] Specimen Type POC Capillary 08/14/2025 7:15 AM EST [facility] Blood Capillary blood specimen / Unknown 08/14/2025 7:13 AM EST 08/14/2025 7:15 AM EST Uche Fonseca MD LAB POINT OF CARE TE ST DOCKED DEVICE UNSOLICITED RESULTS Final Result Performing Organization Address City/[facility]/ZIP Co de Phone Number [facility] [address] [place] [address] * (ABNORMAL) Phosphorus, Plasma (08/14/2025 3:18 AM EST) Phosphorus, Plasma 2.4(L) 2.5 - 4.5 mg/dL 08/14/2025 3:53 AM EST [facility] Blood Venous blood specimen / Unknown Venipuncture / Unknown 08/14/2025 3:18 AM EST 08/14/2025 3:23 AM EST Fabienne Palm MD LAB BLOOD ORDERABLES Coleen l Result [facility] [address] [place] [address] * Magnesium, Plasma (08/14/2025 3:18 AM EST) Magnesium, Plasma 2.0 1.9 - 2.4 mg/dL 08/14/2025 3:53 AM EST [facility] Blood Venous blood specimen / Unknown Venipuncture / Unknown 08/14/2025 3:18 AM EST 08/14/2025 3:23 AM EST us Fabienne Palm MD LAB BLOOD ORDERABLES Coleen santizo Result [facility] [address] [place] [address] * (ABNORMAL) Basic metabolic panel (08/14/2025 3:18 AM EST) Glucose, Plasma 195(H) 74 - 99 mg/dL 08/14/2025 3:53 AM EST [facility] BUN, Plasma 24(H) 7 - 21 mg/dL 08/14/2025 3:53 AM EST [facility] Creatinine, Plasma 1.15 0.70 - 1.20 mg/dL 08/14/2025 3:53 AM EST [facility] BUN/Creatinine Ratio 21 08/14/2025 3:53 AM EST [facility] Sodium, Plasma 133(L) 136 - 145 mmol/L 08/14/2025 3:53 AM EST [facility] Potassium, Plasma 4.1 3.6 - 4.9 mmol/L 08/14/2025 3:53 AM EST [facility] Chloride, Plasma 99 97 - 107 mmol/L 08/14/2025 3:53 AM EST [facility] CO2, Plasma 23 22 - 29 mmol/L 08/14/2025 3:53 AM EST [facility] Anion Gap 11 6 - 16 mmol/L 08/14/2025 3:53 AM EST [facility] Total Calcium, Plasma 9.8 8.9 - 10.2 mg/dL 08/14/2025 3:53 AM EST [facility] eGFRcr 73.3 mL/min/1.7 3m*2 08/14/2025 3:53 AM EST [facility] Comment:Reported eGFRcr in m L/min/1.73m2 is based the CKD-EPI 2020 equation that does not use a race coefficient. Blood Venous blood specimen / Unknown Venipuncture / Unknown 08/14/2025 3:18 AM EST 08/14/2025 3:23 AM EST Uche Fonseca MD LAB BLOOD ORDERABLES Final Re sult [facility] [address] [place] [address] * (ABNORMAL) POCT glucose meter (08/14/2025 3:09 AM EST) POCT Glucose 215(H) 74 - 99 mg/dL 08/14/2025 3:21 AM EST [facility] Comment:Accuracy of a glucos e [...] for testing. Comment 08/14/2025 3:21 AM EST [facility] [employer] Supervisor ID Garry Gonzales 08/14/2025 3:21 AM EST [facility] Device ID [id number] 08/14/2025 3:21 AM EST [facility] Specimen Type POC Capillary 08/14/2025 3:21 AM EST [facility] Blood Capillary blood specimen / Unknown 08/14/2025 3:09 AM EST 08/14/2025 3:21 AM EST Uche Fonseca MD LAB POINT OF CARE TE ST DOCKED DEVICE UNSOLICITED RESULTS Final Result Performing Organization Address City/[facility]/ZIP Co de Phone Number [facility] [address] [place] [address] * (ABNORMAL) POCT glucose meter (08/13/2025 8:10 PM EST) POCT Glucose 257(H) 74 - 99 mg/dL 08/13/2025 8:16 PM EST [facility] Comment:Accuracy of [...] Comment 08/13/2025 8:16 PM EST [facility] Contract Sheltered Workshop Supervisor ID Garry Gonzales 08/13/2025 8:16 PM EST [facility] Device ID [id number] 08/13/2025 8:16 PM EST [facility] Specimen Type POC Capillary 08/13/2025 8:16 PM EST [facility] Blood Capillary blood specimen / Unknown 08/13/2025 8:10 PM EST 08/13/2025 8:16 PM EST Uche Fonseca MD LAB POINT OF CARE TE ST DOCKED DEVICE UNSOLICITED RESULTS Final Result Performing Organization Address City/[facility] Co de Phone Number [facility] [address] [place] [address] * (ABNORMAL) POCT glucose meter (08/13/2025 4:05 [...] Comment 08/13/2025 4:06 PM EST [facility] Contract Sheltered Workshop Supervisor ID Amisha Lomas 08/13/2025 4:06 PM EST [facility] Device ID [id number] 08/13/2025 4:06 PM EST [facility] Specimen Type POC Capillary 08/13/2025 4:06 PM EST [facility] Blood Capillary blood specimen / Unknown 08/13/2025 4:05 PM EST 08/13/2025 4:06 PM EST Uche Fonseca MD LAB POINT OF CARE TE ST DOCKED DEVICE UNSOLICITED RESULTS Final Result Performing Organization Address City/[facility] Co de Phone Number [facility] [address] [place] [address] * (ABNORMAL) POCT glucose meter (08/13/2025 11:50 AM EST) POCT Glucose 252(H) 74 - 99 mg/dL 08/13/2025 11:52 AM EST [facility] Comment:Accuracy of a glucos e [...] for testing. Comment 08/13/2025 11:52 AM EST [facility] Contract [employer]tered [employer] Supervisor ID Amisha Lomas 08/13/2025 11:52 AM EST [facility] Device ID [id number] 08/13/2025 11:52 AM EST [facility] Specimen Type POC Capillary 08/13/2025 11:52 AM EST [facility] Blood Capillary blood specimen / Unknown 08/13/2025 11:50 AM EST 08/13/2025 11:52 AM EST Uche Fonseca MD LAB POINT OF CARE TE ST DOCKED DEVICE UNSOLICITED RESULTS Final Result Performing Organization Address [facility] de Phone Number [facility] [address] [place] [address] * Vancomycin, Peak, Plasma Please draw ~2 hours after 0600 dose of vancomycin finishes infusing. Consider obtaining level via peripheral stick. If peripheral stick is not feasible, please ensure that line is flushed well prior to drawing level. Than... (08/13/2025 9:12 AM EST) Vancomycin, Peak, Plasma 33.3 20.0 - 40.0 ug/mL 08/13/2025 9:44 AM EST [facility] Blood Venous blood specimen / Unknown Venipuncture / Unknown 08/13/2025 9:12 AM EST 08/13/2025 9:16 AM EST Narrative [facility] - 08/13/2025 9:44 AM EST Therapeutic Peak level: 20-40ug/mL Supra-therapeutic Peak level: >40 ug/mL Uche Fonseca MD LAB BLOOD ORDERABLES Final Re sult Performing Organization Address [facility]/ZIP Co de Phone Number [facility] [address] [place] [address] * (ABNORMAL) POCT glucose meter (08/13/2025 7:29 AM EST) [facility] POCT Glucose 218(H) 74 - 99 mg/dL 08/13/2025 7:30 AM EST [facility] Comment:Accuracy of a glucos e [...] Comment 08/13/2025 7:30 AM EST [facility] Contract Sheltered Workshop Supervisor ID Amisha Lomas 08/13/2025 7:30 AM EST [facility] Device ID [id number] 08/13/2025 7:30 AM EST [facility] Specimen Type POC Capillary 08/13/2025 7:30 AM EST [facility] Blood Capillary blood specimen / Unknown 08/13/2025 7:29 AM EST 08/13/2025 7:30 AM EST Uche Fonseca MD LAB POINT OF CARE TE ST DOCKED DEVICE UNSOLICITED RESULTS Final Result Performing Organization Address City/[facility]/ZIP Co de Phone Number [facility] [address] [place] [address] * Lavender Top (08/13/2025 5:39 AM EST) [facility] Extra Hold for add-ons 08/13/2025 8:01 AM EST [facility] Comment:Auto resulted. Blood Venous blood specimen / Unknown 08/13/2025 5:39 AM EST 08/13/2025 5:44 AM EST Uche Fonseca MD LAB BLOOD ORDERABLES Final Re sult [facility] [address] [place] [address] * (ABNORMAL) Phosphorus, Plasma (08/13/2025 5:39 AM EST) [facility] Phosphorus, Plasma 2.0(L) 2.5 - 4.5 mg/dL 08/13/2025 6:15 AM EST [facility] Blood Venous blood specimen / Unknown Venipuncture / Unknown 08/13/2025 5:39 AM EST 08/13/2025 5:46 AM EST us Fabienne Palm MD LAB BLOOD ORDERABLES Coleen l Result Performing Organization Address City/[facility]/ZIP Co de Phone Number [facility] [address] [place] [address] * Magnesium, Plasma (08/13/2025 5:39 AM EST) Magnesium, Plasma 2.1 1.9 - 2.4 mg/dL 08/13/2025 6:15 AM EST [facility] Blood Venous blood specimen / Unknown Venipuncture / Unknown 08/13/2025 5:39 AM EST 08/13/2025 5:46 AM EST us Fabienne Palm MD LAB BLOOD ORDERABLES Coleen l Result Performing Organization Address City/[facility] Co de Phone Number [facility] [address] [place] [address] * Vancomycin, Trough, Plasma Please draw ~30 minutes prior to dose due at 0600 on 08/13. Please do NOT hold dose awaiting level to return. Consider obtaining level via peripheral stick. If peripheral stick is not feasible, please ensure that line i... (08/13/2025 5:39 AM EST) Vancomycin, Trough, Plasma 13.7 10.0 - 20.0 ug/mL 08/13/2025 6:15 AM EST [facility] Blood Venous blood specimen / Unknown Venipuncture / Unknown 08/13/2025 5:39 AM EST 08/13/2025 5:46 AM EST Narrative [facility] - 08/13/2025 6:15 AM EST Therapeutic Trough level: 10-20ug/mL Supra-therapeutic Trough level: >20 ug/mL us Uche Fonseca MD LAB BLOOD ORDERABLES Final Re sult Performing Organization Address City/[facility]/ZIP Co de Phone Number [facility] [address] [place] [address] * (ABNORMAL) Basic metabolic panel (08/13/2025 5:39 AM EST) Glucose, Plasma 188(H) 74 - 99 mg/dL 08/13/2025 6:15 AM EST [facility] BUN, Plasma 22(H) 7 - 21 mg/dL 08/13/2025 6:15 AM EST [facility] Creatinine, Plasma 1.08 0.70 - 1.20 mg/dL 08/13/2025 6:15 AM EST [facility] BUN/Creatinine Ratio 20 08/13/2025 6:15 AM EST [facility] Sodium, Plasma 136 136 - 145 mmol/L 08/13/2025 6:15 AM EST [facility] Potassium, Plasma 4.7 3.6 - 4.9 mmol/L 08/13/2025 6:15 AM EST [facility] Chloride, Plasma 102 97 - 107 mmol/L 08/13/2025 6:15 AM EST [facility] CO2, Plasma 24 22 - 29 mmol/L 08/13/2025 6:15 AM EST [facility] Anion Gap 10 6 - 16 mmol/L 08/13/2025 6:15 AM EST [facility] Total Calcium, Plasma 9.7 8.9 - 10.2 mg/dL 08/13/2025 6:15 AM EST [facility] eGFRcr 79.1 mL/min/1.7 3m*2 08/13/2025 6:15 AM EST [facility] Comment:Reported eGFRcr in m L/min/1.73m2 is based the CKD-EPI 2020 equation that does not use a race coefficient. Blood Venous blood specimen / Unknown Venipuncture / Unknown 08/13/2025 5:39 AM EST 08/13/2025 5:46 AM EST Uche Fonseca MD LAB BLOOD ORDERABLES Final Re sult Performing Organization Address City/[facility]/ZIP Co de Phone Number [facility] [address] [place] [address] * (ABNORMAL) POCT glucose meter (08/12/2025 7:44 PM EST) [facility] POCT Glucose 195(H) 74 - 99 mg/dL [...] for testing. Comment 08/12/2025 7:46 PM EST [facility] [employer] Supervisor ID Ana Ramirez [phone] 7:46 PM EST [facility] Device ID [id number] 08/12/2025 7:46 PM EST [facility] Specimen Type POC Capillary 08/12/2025 7:46 PM EST [facility] Blood Capillary blood specimen / Unknown 08/12/2025 7:44 PM EST 08/12/2025 7:46 PM EST Uche Fonseca MD LAB POINT OF CARE TE ST DOCKED DEVICE UNSOLICITED RESULTS Final Result [facility] [address] [place] [address] * (ABNORMAL) POCT glucose meter (08/12/2025 4:06 PM EST) [facility] POCT Glucose 236(H) 74 - 99 mg/dL [...] 08/12/2025 4:07 PM EST [facility] Contract Sheltered Workshop Supervisor ID Solo Boyd 08/12/2025 4:07 PM EST [facility] Device ID [id number] 08/12/2025 4:07 PM EST [facility] Specimen Type POC Capillary 08/12/2025 4:07 PM EST [facility] Blood Capillary blood specimen / Unknown 08/12/2025 4:06 PM EST 08/12/2025 4:07 PM EST Uche Fonseca MD LAB POINT OF CARE TE ST DOCKED DEVICE UNSOLICITED RESULTS Final Result Performing Organization Address City/[facility]/ZIP Co de Phone Number [facility] [address] [place] [address] * (ABNORMAL) POCT glucose meter (08/12/2025 11:02 [...] 08/12/2025 11:03 AM EST [facility] Contract Sheltered Workshop Supervisor ID Boyd, Taha 08/12/2025 11:03 AM EST [facility] Device ID [id number] 08/12/2025 11:03 AM EST [facility] Specimen Type POC Capillary 08/12/2025 11:03 AM EST [facility] Blood Capillary blood specimen / Unknown 08/12/2025 11:02 AM EST 08/12/2025 11:03 AM EST Uche Fonseca MD LAB POINT OF CARE TE ST DOCKED DEVICE UNSOLICITED RESULTS Final Result [facility] [address] [place] [address] * (ABNORMAL) POCT glucose meter (08/12/2025 7:14 [...] Comment 08/12/2025 7:16 AM EST [facility] Contract Sheltered Workshop Supervisor ID Solo Boyd 08/12/2025 7:16 AM EST [facility] Device ID [id number] 08/12/2025 7:16 AM EST [facility] Specimen Type POC Capillary 08/12/2025 7:16 AM EST [facility] Blood Capillary blood specimen / Unknown 08/12/2025 7:14 AM EST 08/12/2025 7:16 AM EST us Uche Fonseca MD LAB POINT OF CARE TE ST DOCKED DEVICE UNSOLICITED RESULTS Final Result Performing Organization Address City/[facility] Co de Phone Number [facility] [address] [place] [address] * Phosphorus, Plasma (08/12/2025 3:09 AM EST) Phosphorus, Plasma 2.7 2.5 - 4.5 mg/dL 08/12/2025 3:45 AM EST [facility] Blood Venous blood specimen / Unknown Venipuncture / Unknown 08/12/2025 3:09 AM EST 08/12/2025 3:15 AM EST us Fabienne Palm MD LAB BLOOD ORDERABLES Coleen l Result [facility] [address] [place] [address] * Magnesium, Plasma (08/12/2025 3:09 AM EST) Magnesium, Plasma 2.0 1.9 - 2.4 mg/dL 08/12/2025 3:45 AM EST [facility] Blood Venous blood specimen / Unknown Venipuncture / Unknown 08/12/2025 3:09 AM EST 08/12/2025 3:15 AM EST us Fabienne Palm MD LAB BLOOD ORDERABLES Coleen santizo Result [facility] [address] [place] [address] * (ABNORMAL) Comprehensive metabolic panel (08/12/2025 3:09 AM EST) Glucose, Plasma 231(H) 74 - 99 mg/dL 08/12/2025 3:45 AM EST [facility] BUN, Plasma 24(H) 7 - 21 mg/dL 08/12/2025 3:45 AM EST [facility] Creatinine, Plasma 1.21(H) 0.70 - 1.20 mg/dL 08/12/2025 3:45 AM EST [facility] BUN/Creatinine Ratio 20 08/12/2025 3:45 AM EST [facility] Sodium, Plasma 135(L) 136 - 145 mmol/L 08/12/2025 3:45 AM EST [facility] Potassium, Plasma 4.3 3.6 - 4.9 mmol/L 08/12/2025 3:45 AM EST [facility] Chloride, Plasma 102 97 - 107 mmol/L 08/12/2025 3:45 AM EST [facility] CO2, Plasma 22 22 - 29 mmol/L 08/12/2025 3:45 AM EST [facility] Anion Gap 11 6 - 16 mmol/L 08/12/2025 3:45 AM EST [facility] Total Calcium, Plasma 9.1 8.9 - 10.2 mg/dL 08/12/2025 3:45 AM EST [facility] Total Protein 6.1(L) 6.3 - 7.9 g/dL 08/12/2025 3:45 AM EST [facility] Albumin, Plasma 3.1(L) 3.5 - 5.2 g/dL 08/12/2025 3:45 AM EST [facility] AST, Plasma 17 10 - 50 U/L 08/12/2025 3:45 AM EST [facility] ALT, Plasma 28 10 - 50 U/L 08/12/2025 3:45 AM EST [facility] Alkaline Phosphatase, Plasma 66 40 - 115 U/L 08/12/2025 3:45 AM EST [facility] Total Bilirubin, Plasma 0.3 0.2 - 1.1 mg/dL 08/12/2025 3:45 AM EST [facility] eGFRcr 69.0 mL/min/1.7 3m*2 08/12/2025 3:45 AM EST [facility] Comment:Reported eGFRcr in m L/min/1.73m2 is based the CKD-EPI 2020 equation that does not use a race coefficient. Blood Venous blood specimen / Unknown Venipuncture / Unknown 08/12/2025 3:09 AM EST 08/12/2025 3:15 AM EST us Mery TEJEDA LAB BLOOD ORDERABLES F inal Result [facility] [address] [place] [address] * (ABNORMAL) CBC and differential (08/12/2025 3:09 AM EST) WBC Count 6.41 3.70 - 10.30 10*3/uL LAB HEMATOLOGY METHOD 08/12/2025 3:36 AM EST [facility] RBC Count 4.48(L) 4.60 - 6.10 10*6/uL LAB HEMATOLOGY METHOD 08/12/2025 3:36 AM EST [facility] HGB 13.1(L) 13.7 - 17.5 g/dL LAB HEMATOLOGY METHOD 08/12/2025 3:36 AM EST [facility] HCT 38.6(L) 40.0 - 51.0 % LAB HEMATOLOGY METHOD 08/12/2025 3:36 AM EST [facility] Platelet Count 171 155 - 369 10*3/uL LAB HEMATOLOGY METHOD 08/12/2025 3:36 AM EST [facility] MCV 86 79 - 98 fL LAB HEMATOLOGY METHOD 08/12/2025 3:36 AM EST [facility] MCH 29.2 26.0 - 32.0 pg LAB HEMATOLOGY METHOD 08/12/2025 3:36 AM EST [facility] MCHC 33.9 30.7 - 35.5 g/dL LAB HEMATOLOGY METHOD 08/12/2025 3:36 AM EST [facility] RDW 11.5 11.5 - 14.5 % LAB HEMATOLOGY METHOD 08/12/2025 3:36 AM [facility] MPV 11.9 8.8 - 12.5 fL LAB HEMATOLOGY METHOD 08/12/2025 3:36 AM [facility] nRBC 0.0 <=0.0 per 100 WBCs LAB HEMATOLOGY METHOD 08/12/2025 3:36 AM [facility] Differential Type Automated LAB HEMATOLOGY METHOD 08/12/2025 3:36 AM [facility] Neutrophils % 62 % LAB HEMATOLOGY METHOD 08/12/2025 3:36 AM [facility] Lymphocytes % 21 % LAB HEMATOLOGY METHOD 08/12/2025 3:36 AM [facility] Monocytes % 13 % LAB HEMATOLOGY METHOD 08/12/2025 3:36 AM [facility] Eosinophils % 3 % LAB HEMATOLOGY METHOD 08/12/2025 3:36 AM [facility] Basophils % 1 % LAB HEMATOLOGY METHOD 08/12/2025 3:36 AM [facility] Immature Granulocytes % 0 % LAB HEMATOLOGY METHOD 08/12/2025 3:36 AM [facility] Neutrophils Absolute 3.97 1.60 - 6.10 10*3/uL LAB HEMATOLOGY METHOD 08/12/2025 3:36 AM [facility] Lymphocytes Absolute 1.33 1.20 - 3.90 10*3/uL LAB HEMATOLOGY METHOD 08/12/2025 3:36 AM [facility] Monocytes Absolute 0.83 0.30 - 0.90 10*3/uL LAB HEMATOLOGY METHOD 08/12/2025 3:36 AM [facility] Eosinophils Absolute 0.21 0.00 - 0.50 10*3/uL LAB HEMATOLOGY METHOD 08/12/2025 3:36 AM [facility] Basophils Absolute 0.05 0.00 - 0.10 10*3/uL LAB HEMATOLOGY METHOD 08/12/2025 3:36 AM [facility] Immature Granulocytes Absolute 0.02 0.00 - 0.06 10*3/uL LAB HEMATOLOGY METHOD 08/12/2025 3:36 AM [facility] Blood Venous blood specimen / Unknown Venipuncture / Unknown 08/12/2025 3:09 AM EST 08/12/2025 3:15 AM EST Narrative [facility] - 08/12/2025 3:36 AM EST Therapeutic decision making should be based on absolute values, rather than percentages. us Mery TEJEDA LAB BLOOD ORDERABLES F inal Result Performing Organization Address City/[facility]/ZIP Co de Phone Number [facility] [address] [place] [address] * (ABNORMAL) POCT glucose meter (08/11/2025 9:41 [...] for testing. Comment 08/11/2025 9:43 PM EST [facility] Contract Sheltered Workshop Supervisor ID Coreen Buckley 08/11/2025 9:43 PM EST [facility] Device ID [id number] 08/11/2025 9:43 PM EST [facility] Specimen Type POC Capillary 08/11/2025 9:43 PM EST [facility] Blood Capillary blood specimen / Unknown 08/11/2025 9:41 PM EST 08/11/2025 9:43 PM EST us Uche Fonseca MD LAB POINT OF CARE TE ST DOCKED DEVICE UNSOLICITED RESULTS Final Result Performing Organization Address City/[facility]/ZIP Co de Phone Number [facility] [address] [place] [address] * (ABNORMAL) POCT glucose meter (08/11/2025 7:37 PM EST) POCT Glucose 240(H) 74 - 99 mg/dL 08/11/2025 7:38 PM EST [facility] Comment:Accuracy of [...] for testing. Comment 08/11/2025 7:38 PM EST [facility] Contract Sheltered Workshop Supervisor ID Coreen Buckley 08/11/2025 7:38 PM EST [facility] Device ID [id number] 08/11/2025 7:38 PM EST [facility] Specimen Type POC Capillary 08/11/2025 7:38 PM EST [facility] Blood Capillary blood specimen / Unknown 08/11/2025 7:37 PM EST 08/11/2025 7:38 PM EST Uche Fonseca MD LAB POINT OF CARE TE ST DOCKED DEVICE UNSOLICITED RESULTS Final Result Performing Organization Address City/[facility]/ZIP Co de Phone Number HEALTHCARE LAB [address] [place] [address] * (ABNORMAL) POCT glucose meter (08/11/2025 4:03 PM EST) [facility] POCT Glucose 195(H) 74 - 99 mg/dL 08/11/2025 4:05 PM EST [facility] Comment:Accuracy [...] for testing. Comment 08/11/2025 4:05 PM EST [facility] Contract Sheltered Workshop Supervisor ID Joey Rutledge 08/11/2025 4:05 PM EST [facility] Device ID [id number] 08/11/2025 4:05 PM EST [facility] Specimen Type POC Capillary 08/11/2025 4:05 PM EST [facility] Blood Capillary blood specimen / Unknown 08/11/2025 4:03 PM EST 08/11/2025 4:05 PM EST us Uche Fonseca MD LAB POINT OF CARE TE ST DOCKED DEVICE UNSOLICITED RESULTS Final Result [facility] [address] [place] [address] * [place] Less than 1 Hour Intraoperative (08/11/2025 1:30 PM EST) Narrative IMAGING - 08/11/2025 8:16 PM EST Images were obtained for surgical purposes. See Andie Moyer's surgical note in the patient's chart for the findings. Andie Moyer MD IMG FLUOROSCOPY PROCEDURE S Final Result Performing Organization Address City/[facility] Co de Phone Number IMAGING * [...] Comment 08/11/2025 1:19 PM EST [facility]ALTHCARE LAB Contract Sheltered Workshop Supervisor ID AhMaritza bey 08/11/2025 1:19 PM EST [facility]ALTH[facility]ARE LAB Device ID [id number] 08/11/2025 1:19 PM EST [facility]ALTH[facility]ARE LAB Specimen Type POC Capillary 08/11/2025 1:19 PM EST [facility] Blood Capillary blood specimen / Unknown 08/11/2025 1:17 PM EST 08/11/2025 1:19 PM EST us Uche Fonseca MD LAB POINT OF CARE TE ST DOCKED DEVICE UNSOLICITED RESULTS Final Result Performing Organization Address City/[facility]/ZIP Co de Phone Number [facility] [address] [place] [address] * (ABNORMAL) Bone Culture and Gram Stain (08/11/2025 1:02 PM EST) Culture Light Growth 08/13/2025 1:45 PM EST [facility] Culture Staphylococcus aureus(A) 08/13/2025 1:45 PM EST [facility] Comment: For susceptibility results refer to: - [facility]-[id number] The organism value for this result has been updated. These results have been appended to the previously preliminary verified report. Gram Stain Result No polymorphonuclear leukocytes seen 08/13/2025 1:45 PM EST [facility] Gram Stain Result No organisms seen 08/13/2025 1:45 PM EST [facility] Bone Structure of toe of left foot / Unknown 08/11/2025 1:02 PM EST 08/11/2025 1:38 PM EST Comment:Pre-op diagnosis: Cellulitis and abscess of toe of left foot [L03.032, L02.612] Andie Moyer MD LAB MICROBIOLOGY - GENERA L ORDERABLES Final Result Performing Organization Address [facility] Co de Phone Number [facility] [address] [place] [address] * Anaerobic Culture (08/11/2025 1:02 PM EST) Culture No anaerobes isolated 08/15/2025 11:08 AM EST [facility] Bone Structure of toe of left foot / Unknown 08/11/2025 1:02 PM EST 08/11/2025 1:38 PM EST Comment:Pre-op diagnosis: Cellulitis and abscess of toe of left foot [L03.032, L02.612] [employer]combill Moyer MD LAB MICROBIOLOGY - GENERA L ORDERABLES Final Result Performing Organization Address City/[facility]/ZIP Co de Phone Number [facility] [address] [place] [address] * (ABNORMAL) Bone Culture and Gram Stain (08/11/2025 1:00 PM EST) Culture Moderate Growth 12:51 PM EST [facility] Culture Staphylococcus aureus(A) TOMMIE 08/14/2025 12:51 PM EST [facility] Comment:The organism value f or this result has been updated. These results have been appended to the previously preliminary verified report. Gram Stain Result Few Polymorphonuclear leukocytes(A) 08/14/2025 12:51 PM EST [facility] Gram Stain Result Few Gram positive cocci in pairs(A) 08/14/2025 12:51 PM EST [facility] Bone Structure of toe of left [...] Staphylococcus aureus Vancomycin TOMMIE <=0.5 ug/ml: Susceptible us Andie Moyer MD LAB MICROBIOLOGY - GENERA L ORDERABLES Final Result [facility] [address] [place] [address] * Anaerobic Culture (08/11/2025 1:00 PM EST) Culture Mixed aerobic and anaerobic carmine 08/15/2025 11:08 AM EST [facility] Bone Structure of toe of left foot / Unknown 08/11/2025 1:00 PM EST 08/11/2025 1:39 PM EST Comment:Pre-op diagnosis: Cellulitis and abscess of toe of left foot [L03.032, L02.612] us Andie Moyer MD LAB MICROBIOLOGY - GENERA L ORDERABLES Final Result [facility] [address] [place] [address] * Surgical Pathology Exam (08/11/2025 12:57 PM EST) Case Report Surgical Pathology Case: [id number] Authorizing Provider: Andie Moyer MD Collected: 08/11/2025 1257 Ordering Location: [facility] OPERATING ROOM Received: 08/11/2025 1317 Pathologist: Diana King MD Specimen: Toe, Left, 4th Left Toe 08/16/2025 12:51 PM EST [facility] Final Diagnosis A. 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 - NO ACUTE OSTEOMYELITIS IDENTIFIED 08/16/2025 12:51 PM EST [facility] at 1251 EST Clinical Information Cellulitis and abscess of toe of left foot [L03.032, L02.612] 08/16/2025 12:51 PM EST [facility] Gross Description A. 4TH LEFT TOE [...] resection margin is a roughened cut surface. [employer] Specialist sections are submitted in cassettes A1-A3 as follows: A1: Skin resection margin. A2: Roughened bone resection margin, submitted for decal. A3: Full-thickness cross section of ulceration with underlying bone, submitted for decal. Amisha Awad Jose Alberto 08/16/2025 12:51 PM EST [facility] Bone Structure of toe of left foot / Unknown 08/11/2025 12:57 PM EST 08/11/2025 1:17 PM EST Comment:Pre-op diagnosis: Cellulitis and abscess of toe of left foot [L03.032, L02.612] us Andie Moyer MD LAB PATHOLOGY ORDERABLES Final Result [facility] [address] [place] [address] * (ABNORMAL) POCT glucose meter (08/11/2025 11:42 AM EST) Pathologist [facility] POCT Glucose 177(H) 74 - 99 mg/dL 08/11/2025 11:44 AM EST [facility] Comment:Accuracy of [...] for testing. Comment 08/11/2025 11:44 AM EST [facility] Contract Sheltered Workshop Supervisor ID DavidNidia Amber 025 11:44 AM EST [facility] Device ID [id number] 08/11/2025 11:44 AM EST [facility] Specimen Type POC Capillary 08/11/2025 11:44 AM EST [facility] Blood Capillary blood specimen / Unknown 08/11/2025 11:42 AM EST 08/11/2025 11:44 AM EST Uche Fonseca MD LAB POINT OF CARE TE ST DOCKED DEVICE UNSOLICITED RESULTS Final Result Performing Organization Address [facility] Co de Phone Number [facility] [address] [place] [address] * (ABNORMAL) POCT glucose meter (08/11/2025 7:39 AM EST) [facility] POCT Glucose 226(H) 74 - 99 mg/dL 08/11/2025 7:41 AM EST [facility] Comment:Accuracy of [...] for testing. Comment 08/11/2025 7:41 AM EST [facility] Contract Sheltered Workshop Supervisor ID Joey Rutledge 08/11/2025 7:41 AM EST [facility] Device ID [id number] 08/11/2025 7:41 AM EST [facility]ALTHCARE LAB Specimen Type POC Capillary 08/11/2025 7:41 AM EST [facility] Blood Capillary blood specimen / Unknown 08/11/2025 7:39 AM EST 08/11/2025 7:41 AM EST Uche Fonseca MD LAB POINT OF CARE TE ST DOCKED DEVICE UNSOLICITED RESULTS Final Result Performing Organization Address City/[facility]/ZIP Co de Phone Number [facility] [address] [place] [address] * (ABNORMAL) Sedimentation Rate, Automated (08/11/2025 3:30 AM EST) Sedimentation Rate 58(H) <20 mm/hr 2024 4:54 AM EST [facility] Blood Venous blood specimen / Unknown Venipuncture / Unknown 08/11/2025 3:30 AM EST 08/11/2025 4:19 AM EST Uche Fonseca MD LAB BLOOD ORDERABLES Final Re sult Performing Organization Address City/[facility]/[place] [address] * Phosphorus, Plasma (08/11/2025 3:30 AM EST) Phosphorus, Plasma 2.7 2.5 - 4.5 mg/dL 08/11/2025 4:58 AM EST [facility] Blood Venous blood specimen / Unknown Venipuncture / Unknown 08/11/2025 3:30 AM EST 08/11/2025 4:17 AM EST Fabienne Palm MD LAB BLOOD ORDERABLES Coleen l Result Performing Organization Address City/[facility]/[place] [address] * (ABNORMAL) Magnesium, Plasma (08/11/2025 3:30 AM EST) Magnesium, Plasma 1.8(L) 1.9 - 2.4 mg/dL 08/11/2025 4:58 AM EST [facility] Blood Venous blood specimen / Unknown Venipuncture / Unknown 08/11/2025 3:30 AM EST 08/11/2025 4:17 AM EST us Fabienne Palm MD LAB BLOOD ORDERABLES oCleen santizo Result [facility] [address] [place] [address] * CBC and differential (08/11/2025 3:30 AM EST) WBC Count 8.04 3.70 - 10.30 10*3/uL LAB HEMATOLOGY METHOD 08/11/2025 4:27 AM EST [facility] RBC Count 4.75 4.60 - 6.10 10*6/uL LAB HEMATOLOGY METHOD 08/11/2025 4:27 AM EST [facility] HGB 14.0 13.7 - 17.5 g/dL LAB HEMATOLOGY METHOD 08/11/2025 4:27 AM EST [facility] HCT 40.7 40.0 - 51.0 % LAB HEMATOLOGY METHOD 08/11/2025 4:27 AM EST [facility] Platelet Count 176 155 - 369 10*3/uL LAB HEMATOLOGY METHOD 08/11/2025 4:27 AM EST [facility] MCV 86 79 - 98 fL LAB HEMATOLOGY METHOD 08/11/2025 4:27 AM EST [facility] MCH 29.5 26.0 - 32.0 pg LAB HEMATOLOGY METHOD 08/11/2025 4:27 AM EST [facility] MCHC 34.4 30.7 - 35.5 g/dL LAB HEMATOLOGY METHOD 08/11/2025 4:27 AM EST [facility] RDW 11.6 11.5 - 14.5 % LAB HEMATOLOGY METHOD 08/11/2025 4:27 AM EST [facility] MPV 12.5 8.8 - 12.5 fL LAB HEMATOLOGY METHOD 08/11/2025 4:27 AM EST [facility] nRBC 0.0 <=0.0 per 100 WBCs LAB HEMATOLOGY METHOD 08/11/2025 4:27 AM EST [facility] Differential Type Automated LAB HEMATOLOGY METHOD 08/11/2025 4:27 AM EST [facility] Neutrophils % 69 % LAB HEMATOLOGY METHOD 08/11/2025 4:27 AM EST [facility] Lymphocytes % 15 % LAB HEMATOLOGY METHOD 08/11/2025 4:27 AM EST [facility] Monocytes % 10 % LAB HEMATOLOGY METHOD 08/11/2025 4:27 AM EST [facility] Eosinophils % 4 % LAB HEMATOLOGY METHOD 08/11/2025 4:27 AM EST [facility] Basophils % 1 % LAB HEMATOLOGY METHOD 08/11/2025 4:27 AM EST [facility] Immature Granulocytes % 1 % LAB HEMATOLOGY METHOD 08/11/2025 4:27 AM EST [facility] Neutrophils Absolute 5.60 1.60 - 6.10 10*3/uL LAB HEMATOLOGY METHOD 08/11/2025 4:27 AM EST [facility] Lymphocytes Absolute 1.22 1.20 - 3.90 10*3/uL LAB HEMATOLOGY METHOD 08/11/2025 4:27 AM EST [facility] Monocytes Absolute 0.84 0.30 - 0.90 10*3/uL LAB HEMATOLOGY METHOD 08/11/2025 4:27 AM EST [facility] Eosinophils Absolute 0.29 0.00 - 0.50 10*3/uL LAB HEMATOLOGY METHOD 08/11/2025 4:27 AM EST [facility] Basophils Absolute 0.05 0.00 - 0.10 10*3/uL LAB HEMATOLOGY METHOD 08/11/2025 4:27 AM EST [facility] Immature Granulocytes Absolute 0.04 0.00 - 0.06 10*3/uL LAB HEMATOLOGY METHOD 08/11/2025 4:27 AM EST [facility] Blood Venous blood specimen / Unknown Venipuncture / Unknown 08/11/2025 3:30 AM EST 08/11/2025 4:19 AM EST [facility] - 08/11/2025 4:27 AM EST Therapeutic decision making should be based on absolute values, rather than percentages. us Uche Fonseca MD LAB BLOOD ORDERABLES Final Re sult [facility] [address] [place] [address] * (ABNORMAL) Basic metabolic panel (08/11/2025 3:30 AM EST) Glucose, Plasma 205(H) 74 - 99 mg/dL 08/11/2025 4:58 AM EST [facility] BUN, Plasma 19 7 - 21 mg/dL 08/11/2025 4:58 AM EST [facility] Creatinine, Plasma 1.03 0.70 - 1.20 mg/dL 08/11/2025 4:58 AM EST [facility] BUN/Creatinine Ratio 18 08/11/2025 4:58 AM EST [facility] Sodium, Plasma 134(L) 136 - 145 mmol/L 08/11/2025 4:58 AM EST [facility] Potassium, Plasma 4.1 3.6 - 4.9 mmol/L 08/11/2025 4:58 AM EST [facility] Chloride, Plasma 100 97 - 107 mmol/L 08/11/2025 4:58 AM EST [facility] CO2, Plasma 22 22 - 29 mmol/L 08/11/2025 4:58 AM EST [facility] Anion Gap 12 6 - 16 mmol/L 08/11/2025 4:58 AM EST [facility] Total Calcium, Plasma 9.5 8.9 - 10.2 mg/dL 08/11/2025 4:58 AM EST [facility] eGFRcr 83.7 mL/min/1.7 3m*2 08/11/2025 4:58 AM EST [facility] Comment:Reported eGFRcr in m L/min/1.73m2 is based the CKD-EPI 2020 equation that does not use a race coefficient. Blood Venous blood specimen / Unknown Venipuncture / Unknown 08/11/2025 3:30 AM EST 08/11/2025 4:17 AM EST Uche Fonseca MD LAB BLOOD ORDERABLES Final Re sult [facility] [address] [place] [address] * (ABNORMAL) POCT glucose meter (08/10/2025 7:27 PM EST) [facility] POCT Glucose 215(H) 74 - 99 mg/dL 08/10/2025 7:33 PM EST [facility] Comment:Accuracy of [...] 08/10/2025 7:33 PM EST [facility] Contract Sheltered Workshop Supervisor ID Chapin Steve 08/10/2025 7:33 PM EST [facility] LAB Device ID [id number] 08/10/2025 7:33 PM EST [facility] Specimen Type POC Capillary 08/10/2025 7:33 PM EST [facility] Blood Capillary blood specimen / Unknown 08/10/2025 7:27 PM EST 08/10/2025 7:33 PM EST Uche Fonseca MD LAB POINT OF CARE TE ST DOCKED DEVICE UNSOLICITED RESULTS Final Result Performing Organization Address City/State/[facility] Co de Phone Number [facility] [address] [place] [address] * (ABNORMAL) POCT glucose meter (08/10/2025 4:15 PM EST) [facility] POCT Glucose 237(H) 74 - 99 mg/dL [...] 08/10/2025 4:18 PM EST [facility] Contract Sheltered Workshop Supervisor ID Chapin Steve 08/10/2025 4:18 PM EST [facility] Device ID [id number] 08/10/2025 4:18 PM EST [facility] Specimen Type POC Capillary 08/10/2025 4:18 PM EST [facility] Blood Capillary blood specimen / Unknown 08/10/2025 4:15 PM EST 08/10/2025 4:18 PM EST Uche Fonseca MD LAB POINT OF CARE TE ST DOCKED DEVICE UNSOLICITED RESULTS Final Result Performing Organization Address [facility] de Phone Number [facility] [address] [place] [address] * (ABNORMAL) POCT glucose meter (08/10/2025 11:13 AM EST) POCT Glucose 323(H) 74 - 99 mg/dL 08/10/2025 11:18 AM EST [facility] Comment:Accuracy of [...] for testing. Comment 08/10/2025 11:18 AM EST [facility] Contract Sheltered Workshop Supervisor ID Alba Doan 08/10/2025 11:18 AM EST [facility] Device ID [id number] 08/10/2025 11:18 AM EST [facility] Specimen Type POC Capillary 08/10/2025 11:18 AM EST [facility] Blood Capillary blood specimen / Unknown 08/10/2025 11:13 AM EST 08/10/2025 11:18 AM EST Uche Fonseca MD LAB POINT OF CARE TE ST DOCKED DEVICE UNSOLICITED RESULTS Final Result Performing Organization Address [facility] de Phone Number [facility] [address] [place] [address] * (ABNORMAL) POCT glucose meter (08/10/2025 7:34 AM EST) POCT Glucose 176(H) 74 - 99 mg/dL [...] for testing. Comment 08/10/2025 7:39 AM EST [facility] Contract Sheltered Workshop Supervisor ID Alba Doan 08/10/2025 7:39 AM EST [facility] Device ID [id number] 08/10/2025 7:39 AM EST [facility] Specimen Type POC Capillary 08/10/2025 7:39 AM EST [facility] Blood Capillary blood specimen / Unknown 08/10/2025 7:34 AM EST 08/10/2025 7:39 AM EST Uche Fonseca MD LAB POINT OF CARE TE ST DOCKED DEVICE UNSOLICITED RESULTS Final Result Performing Organization Address City/[facility] Co de Phone Number [facility] [address] [place] [address] * (ABNORMAL) C-reactive protein (08/10/2025 3:22 AM EST) Pathologist [facility] CRP, Plasma 52.4(H) <=8.0 mg/L 08/11/2025 3:21 AM EST [facility] Blood Venous blood specimen / Unknown Venipuncture / Unknown 08/10/2025 3:22 AM EST 08/10/2025 3:29 AM EST Narrative [facility] - 08/11/2025 3:21 AM EST This CRP test is appropriate for assessment of infection, systemic inflammation and/or tissue injury. To assess cardiovascular disease risk order high sensitivity CRP (CRPH). Uche Fonseca MD LAB BLOOD ORDERABLES Final Re sult [facility] [address] [place] [address] * Vitamin D 25 Hydroxy (08/10/2025 3:22 AM EST) Vitamin D 25 Hydroxy 78.2 20.0 - 80.0 ng/mL 08/10/2025 8:08 AM EST [facility] Blood Venous blood specimen / Unknown Venipuncture / Unknown 08/10/2025 3:22 AM EST 08/10/2025 3:29 AM EST Narrative [facility] - 08/10/2025 8:08 AM EST Testing performed on [employer], standardized against NIST SRM [id number]. When testing [...] ORDERABLES Coleen l Result Performing Organization Address City/[facility]/ZIP Co de Phone Number [facility] [address] [place] [address] * Phosphorus, Plasma (08/10/2025 3:22 AM EST) Phosphorus, Plasma 3.4 2.5 - 4.5 mg/dL 08/10/2025 3:55 AM EST [facility] Blood Venous blood specimen / Unknown Venipuncture / Unknown 08/10/2025 3:22 AM EST 08/10/2025 3:29 AM EST us Fabienne Palm MD LAB BLOOD ORDERABLES Coleen l Result Performing Organization Address City/[facility]/ZIP Co de Phone Number [facility] [address] [place] [address] * Magnesium, Plasma (08/10/2025 3:22 AM EST) Magnesium, Plasma 1.9 1.9 - 2.4 mg/dL 08/10/2025 3:55 AM EST [facility] Blood Venous blood specimen / Unknown Venipuncture / Unknown 08/10/2025 3:22 AM EST 08/10/2025 3:29 AM EST us Fabienne Palm MD LAB BLOOD ORDERABLES Coleen l Result [facility] [address] [place] [address] * (ABNORMAL) POCT glucose meter (08/10/2025 3:13 AM EST) [facility] POCT Glucose 173(H) 74 - 99 mg/dL 08/10/2025 3:15 AM EST [facility] Comment:Accuracy of [...] for testing. Comment 08/10/2025 3:15 AM EST [facility] Contract Sheltered Workshop Supervisor ID ManasYobany alves 08/10/2025 3:15 AM EST [facility] Device ID [id number] 08/10/2025 3:15 AM EST [facility] Specimen Type POC Capillary 08/10/2025 3:15 AM EST [facility] Blood Capillary blood specimen / Unknown 08/10/2025 3:13 AM EST 08/10/2025 3:15 AM EST Fabienne Palm MD LAB POINT OF CARE TEST DOCKED DEVICE UNSOLICITED RESULTS Final Result Performing Organization Address [facility] Co de Phone Number [facility] [address] [place] [address] * (ABNORMAL) POCT glucose meter (08/09/2025 9:11 PM EST) [facility] POCT Glucose 251(H) 74 - 99 mg/dL 08/09/2025 9:12 PM EST [facility] Comment:Accuracy of [...] for testing. Comment 08/09/2025 9:12 PM EST [facility] Contract Sheltered Workshop Supervisor ID Yobany Carr 08/09/2025 9:12 PM EST [facility] Device ID [id number] 08/09/2025 9:12 PM EST [facility] Specimen Type POC Capillary 08/09/2025 9:12 PM EST [facility] Blood Capillary blood specimen / Unknown 08/09/2025 9:11 PM EST 08/09/2025 9:12 PM EST us Fabienne Palm MD LAB POINT OF CARE TEST DOCKED DEVICE UNSOLICITED RESULTS Final Result Performing Organization Address City/[facility] Co de Phone Number [facility] [address] [place] [address] * (ABNORMAL) POCT glucose meter (08/09/2025 5:01 PM EST) POCT Glucose 272(H) 74 - 99 mg/dL 08/09/2025 5:03 PM EST [facility] Comment:Accuracy of a [...] for testing. Comment 08/09/2025 5:03 PM EST [facility] Contract Sheltered Workshop Supervisor ID Winnie Stringer 08/09/2025 5:03 PM EST [facility] Device ID [id number] 08/09/2025 5:03 PM EST [facility] Specimen Type POC Capillary 08/09/2025 5:03 PM EST [facility] Blood Capillary blood specimen / Unknown 08/09/2025 5:01 PM EST 08/09/2025 5:03 PM EST us Fabienne Palm MD LAB POINT OF CARE TEST DOCKED DEVICE UNSOLICITED RESULTS Final Result Performing Organization Address City/[facility] Co de Phone Number [facility] [address] [place] [address] * Vancomycin, Peak, Plasma Please draw ~2 hours after 0900 08/09 dose of vancomycin finishes infusing. Consider obtaining level via peripheral stick. If peripheral stick is not feasible, please ensure that line is flushed well prior to drawing level... (08/09/2025 12:49 PM EST) Pathologist [facility] Vancomycin, Peak, Plasma 20.0 20.0 - 40.0 ug/mL 08/09/2025 1:46 PM EST [facility] Blood Venous blood specimen / Unknown Venipuncture / Unknown 08/09/2025 12:49 PM EST 08/09/2025 1:11 PM EST Narrative [facility] - 08/09/2025 1:46 PM EST Therapeutic Peak level: 20-40ug/mL Supra-therapeutic Peak level: >40 ug/mL us Oriana Castelan MD LAB BLOOD ORDERABLES Final R esult Performing Organization Address City/[facility]/ZIP Co de Phone Number [address] [address] * (ABNORMAL) POCT glucose meter (08/09/2025 11:54 AM EST) [facility] POCT Glucose 395(H) 74 - 99 mg/dL 08/09/2025 11:56 AM EST [facility] Comment:Accuracy of a glucos e result [...] for testing. Comment 08/09/2025 11:56 AM EST [facility] Contract Sheltered Workshop Supervisor ID Winnie Stringer 08/09/2025 11:56 AM EST [facility] Device ID [id number] 08/09/2025 11:56 AM EST [facility] Specimen Type POC Capillary 08/09/2025 11:56 AM EST [facility] Blood Capillary blood specimen / Unknown 08/09/2025 11:54 AM EST 08/09/2025 11:56 AM EST us Fabienne Palm MD LAB POINT OF CARE TEST DOCKED DEVICE UNSOLICITED RESULTS Final Result Performing Organization Address City/[facility]/ZIP Co de Phone Number [facility] [address] [place] [address] * (ABNORMAL) Vancomycin, Trough, Plasma Please draw ~30 minutes prior to dose due at 0830 on 08/09. Please do NOT hold dose awaiting level to return. Consider obtaining level via peripheral stick. If peripheral stick is not feasible, please ensure that line i... (08/09/2025 8:30 AM EST) Vancomycin, Trough, Plasma 8.2(L) 10.0 - 20.0 ug/mL 08/09/2025 10:45 AM EST [facility] Blood Venous blood specimen / Unknown Venipuncture / Unknown 08/09/2025 8:30 AM EST 08/09/2025 10:15 AM EST Narrative [facility] - 08/09/2025 10:45 AM EST Therapeutic Trough level: 10-20ug/mL Supra-therapeutic Trough level: >20 ug/mL us Oriana Castelan MD LAB BLOOD ORDERABLES Final R esult [facility] [address] [place] [address] * (ABNORMAL) POCT glucose meter (08/09/2025 7:38 AM EST) [facility] POCT Glucose 245(H) 74 - 99 mg/dL 08/09/2025 7:39 AM EST [facility] Comment:Accuracy [...] for testing. Comment 08/09/2025 7:39 AM EST [facility] Contract Sheltered [employer] Supervisor ID Winnie Stringer 08/09/2025 7:39 AM EST [facility] Device ID [id number] 08/09/2025 7:39 AM EST [facility] Specimen Type POC Capillary 08/09/2025 7:39 AM EST [facility] Blood Capillary blood specimen / Unknown 08/09/2025 7:38 AM EST 08/09/2025 7:39 AM EST us Oriana Castelan MD LAB POINT OF CARE TE ST DOCKED DEVICE UNSOLICITED RESULTS Final Result Performing Organization Address City/[facility] Co de Phone Number [facility] [address] [place] [address] * (ABNORMAL) POCT glucose meter (08/09/2025 3:42 AM EST) POCT Glucose 232(H) 74 - 99 mg/dL 08/09/2025 3:45 AM EST [facility] Comment:Accuracy of a glucos e [...] for testing. Comment 08/09/2025 3:45 AM EST [facility] Contract Sheltered Workshop Supervisor ID Janene Bush 3:45 AM EST [facility] Device ID [id number] 08/09/2025 3:45 AM EST [facility] Specimen Type POC Capillary 08/09/2025 3:45 AM EST [facility] Blood Capillary blood specimen / Unknown 08/09/2025 3:42 AM EST 08/09/2025 3:45 AM EST Oriana Castelan MD LAB POINT OF CARE TE ST DOCKED DEVICE UNSOLICITED RESULTS Final Result Performing Organization Address [facility] Co de Phone Number [facility] [address] [place] [address] * Phosphorus, Plasma (08/09/2025 2:30 AM EST) [facility] Phosphorus, Plasma 3.2 2.5 - 4.5 mg/dL 08/09/2025 3:14 AM EST [facility] Blood Venous blood specimen / Unknown Venipuncture / Unknown 08/09/2025 2:30 AM EST 08/09/2025 2:44 AM EST Fabienne Palm MD LAB BLOOD ORDERABLES Coleen l Result [facility] [address] [place] [address] * (ABNORMAL) Magnesium, Plasma (08/09/2025 2:30 AM EST) Magnesium, Plasma 1.8(L) 1.9 - 2.4 mg/dL 08/09/2025 3:14 AM EST [facility] Blood Venous blood specimen / Unknown Venipuncture / Unknown 08/09/2025 2:30 AM EST 08/09/2025 2:44 AM EST us Fabienne Palm MD LAB BLOOD ORDERABLES Coleen l Result [facility] [address] [place] [address] * (ABNORMAL) Comprehensive metabolic panel (08/09/2025 2:30 AM EST) Glucose, Plasma 226(H) 74 - 99 mg/dL 08/09/2025 3:14 AM EST [facility] BUN, Plasma 22(H) 7 - 21 mg/dL 08/09/2025 3:14 AM EST [facility] Creatinine, Plasma 1.18 0.70 - 1.20 mg/dL 08/09/2025 3:14 AM EST [facility] BUN/Creatinine Ratio 19 08/09/2025 3:14 AM EST [facility] Sodium, Plasma 133(L) 136 - 145 mmol/L 08/09/2025 3:14 AM EST [facility] Potassium, Plasma 4.5 3.6 - 4.9 mmol/L 08/09/2025 3:14 AM EST [facility] Chloride, Plasma 99 97 - 107 mmol/L 08/09/2025 3:14 AM EST [facility] CO2, Plasma 24 22 - 29 mmol/L 08/09/2025 3:14 AM EST [facility] Anion Gap 10 6 - 16 mmol/L 08/09/2025 3:14 AM EST [facility] Total Calcium, Plasma 9.9 8.9 - 10.2 mg/dL 08/09/2025 3:14 AM EST [facility] Total Protein 7.1 6.3 - 7.9 g/dL 08/09/2025 3:14 AM EST [facility] Albumin, Plasma 3.6 3.5 - 5.2 g/dL 08/09/2025 3:14 AM EST [facility] AST, Plasma 29 10 - 50 U/L 08/09/2025 3:14 AM EST [facility] Comment:Hemolyzed, result ma y be falsely increased. ALT, Plasma 37 10 - 50 U/L 08/09/2025 3:14 AM EST [facility] Alkaline Phosphatase, Plasma 75 40 - 115 U/L 08/09/2025 3:14 AM EST [facility] Total Bilirubin, Plasma 0.4 0.2 - 1.1 mg/dL 08/09/2025 3:14 AM EST [facility] eGFRcr 71.1 mL/min/1.7 3m*2 08/09/2025 3:14 AM EST [facility] Comment:Reported eGFRcr in m L/min/1.73m2 is based the CKD-EPI 2020 equation that does not use a race coefficient. Blood Venous blood specimen / Unknown Venipuncture / Unknown 08/09/2025 2:30 AM EST 08/09/2025 2:44 AM EST Mery TEJEDA LAB BLOOD ORDERABLES F inal Result [facility] [address] [place] [address] * (ABNORMAL) CBC and differential (08/09/2025 2:30 AM EST) WBC Count 8.34 3.70 - 10.30 10*3/uL LAB HEMATOLOGY METHOD 08/09/2025 2:50 AM EST [facility] RBC Count 4.90 4.60 - 6.10 10*6/uL LAB HEMATOLOGY METHOD 08/09/2025 2:50 AM EST [facility] HGB 14.4 13.7 - 17.5 g/dL LAB HEMATOLOGY METHOD 08/09/2025 2:50 AM EST [facility] HCT 43.0 40.0 - 51.0 % LAB HEMATOLOGY METHOD 08/09/2025 2:50 AM EST [facility] Platelet Count 159 155 - 369 10*3/uL LAB HEMATOLOGY METHOD 08/09/2025 2:50 AM EST [facility] MCV 88 79 - 98 fL LAB HEMATOLOGY METHOD 08/09/2025 2:50 AM EST [facility] MCH 29.4 26.0 - 32.0 pg LAB HEMATOLOGY METHOD 08/09/2025 2:50 AM EST [facility] MCHC 33.5 30.7 - 35.5 g/dL LAB HEMATOLOGY METHOD 08/09/2025 2:50 AM EST [facility] RDW 11.7 11.5 - 14.5 % LAB HEMATOLOGY METHOD 08/09/2025 2:50 AM EST [facility] MPV 12.7(H) 8.8 - 12.5 fL LAB HEMATOLOGY METHOD 08/09/2025 2:50 AM EST [facility] nRBC 0.0 <=0.0 per 100 WBCs LAB HEMATOLOGY METHOD 08/09/2025 2:50 AM EST [facility] Differential Type Automated LAB HEMATOLOGY METHOD 08/09/2025 2:50 AM [facility] Neutrophils % 72 % LAB HEMATOLOGY METHOD 08/09/2025 2:50 AM [facility] Lymphocytes % 13 % LAB HEMATOLOGY METHOD 08/09/2025 2:50 AM [facility] Monocytes % 10 % LAB HEMATOLOGY METHOD 08/09/2025 2:50 AM [facility] Eosinophils % 3 % LAB HEMATOLOGY METHOD 08/09/2025 2:50 AM EST [facility] Basophils % 1 % LAB HEMATOLOGY METHOD 08/09/2025 2:50 AM EST [facility] Immature Granulocytes % 1 % LAB HEMATOLOGY METHOD 08/09/2025 2:50 AM [facility] Neutrophils Absolute 6.04 1.60 - 6.10 10*3/uL LAB HEMATOLOGY METHOD 08/09/2025 2:50 AM EST [facility] Lymphocytes Absolute 1.06(L) 1.20 - 3.90 10*3/uL LAB HEMATOLOGY METHOD 08/09/2025 2:50 AM EST [facility] Monocytes Absolute 0.87 0.30 - 0.90 10*3/uL LAB HEMATOLOGY METHOD 08/09/2025 2:50 AM EST [facility] Eosinophils Absolute 0.28 0.00 - 0.50 10*3/uL LAB HEMATOLOGY METHOD 08/09/2025 2:50 AM EST [facility] Basophils Absolute 0.05 0.00 - 0.10 10*3/uL LAB HEMATOLOGY METHOD 08/09/2025 2:50 AM EST [facility] Immature Granulocytes Absolute 0.04 0.00 - 0.06 10*3/uL LAB HEMATOLOGY METHOD 08/09/2025 2:50 AM EST [facility] Blood Venous blood specimen / Unknown Venipuncture / Unknown 08/09/2025 2:30 AM EST 08/09/2025 2:44 AM EST Narrative [facility] - 08/09/2025 2:50 AM EST Therapeutic decision making should be based on absolute values, rather than percentages. Mery Garcia LA LAB BLOOD ORDERABLES F inal Result Performing Organization Address [facility] Co de Phone Number [facility] [address] [place] [address] * (ABNORMAL) C-Reactive Protein, Plasma (08/09/2025 2:30 AM EST) CRP, Plasma 91.2(H) <=8.0 mg/L 08/09/2025 3:14 AM EST [facility] Blood Venous blood specimen / Unknown Venipuncture / Unknown 08/09/2025 2:30 AM EST 08/09/2025 2:44 AM EST Narrative [facility] - 08/09/2025 3:14 AM EST This CRP test is appropriate for assessment of infection, systemic inflammation and/or tissue injury. To assess cardiovascular disease risk order high sensitivity CRP (CRPH). Mery Garcia LA LAB BLOOD ORDERABLES F inal Result Performing Organization Address City/[facility]/ZIP Co de Phone Number [facility] [address] [place] [address] * Vitamin D 1,25 dihydroxy (08/09/2025 2:30 AM EST) VITAMIN D, 1, 25-DIHYDROXY 44.9 19.9 - 79.3 pg/mL 08/12/2025 8:43 AM EST [facility] Blood Venous blood specimen / Unknown Venipuncture / Unknown 08/09/2025 2:30 AM EST 08/09/2025 2:44 AM EST us Fabienne Palm MD LAB BLOOD ORDERABLES Coleen sukhdev Result Performing Organization Address City/State/[facility] Co de Phone Number [facility] [address] [place] [address] * MR Foot Left w and wo [...] multiecho sequences were obtained utilizing T1 and [id number] with and without the administration of intravenous [...] POCT glucose meter (08/08/2025 8:32 PM EST) POCT Glucose 286(H) 74 - 99 mg/dL 08/08/2025 8:34 PM EST [facility] Comment:Accuracy of a glucos e result [...] for testing. Comment 08/08/2025 8:34 PM EST [facility] Contract Sheltered Workshop Supervisor ID Janene Bush 8:34 PM EST [facility] Device ID [id number] 08/08/2025 8:34 PM EST [facility] Specimen Type POC Capillary 08/08/2025 8:34 PM EST [facility] Blood Capillary blood specimen / Unknown 08/08/2025 8:32 PM EST 08/08/2025 8:34 PM EST us Oriana Castelan MD LAB POINT OF CARE TE ST DOCKED DEVICE UNSOLICITED RESULTS Final Result [facility] [address] [place] [address] * (ABNORMAL) POCT glucose meter (08/08/2025 4:11 PM EST) POCT Glucose 211(H) 74 - 99 mg/dL 08/08/2025 4:13 PM EST [facility] Comment:Accuracy of a glucos e result [...] for testing. Comment 08/08/2025 4:13 PM EST [facility] Contract Sheltered Workshop Supervisor ID Veronica Red 025 4:13 PM EST [facility] Device ID [id number] 08/08/2025 4:13 PM EST [facility] Specimen Type POC Capillary 08/08/2025 4:13 PM EST [facility] Blood Capillary blood specimen / Unknown 08/08/2025 4:11 PM EST 08/08/2025 4:13 PM EST us Oriana Castelan MD LAB POINT OF CARE TE ST DOCKED DEVICE UNSOLICITED RESULTS Final Result Performing Organization Address City/State/[facility] Co de Phone Number [facility] [address] [place] [address] * (ABNORMAL) POCT glucose meter (08/08/2025 11:21 AM EST) POCT Glucose 242(H) 74 - 99 mg/dL 08/08/2025 11:24 AM EST [facility] Comment:Accuracy of a glucos e [...] for testing. Comment 08/08/2025 11:24 AM EST [facility] Contract Sheltered Workshop Supervisor ID Veronica Red 025 11:24 AM EST [facility] Device ID [id number] 08/08/2025 11:24 AM EST [facility] Specimen Type POC Capillary 08/08/2025 11:24 AM EST [facility] Blood Capillary blood specimen / Unknown 08/08/2025 11:21 AM EST 08/08/2025 11:24 AM EST us Oriana Castelan MD LAB POINT OF CARE TE ST DOCKED DEVICE UNSOLICITED RESULTS Final Result Performing Organization Address City/[facility] Co de Phone Number [facility] [address] [place] [address] * (ABNORMAL) POCT glucose meter (08/08/2025 8:07 AM EST) Pathologist [facility] POCT Glucose 359(H) 74 - 99 mg/dL 08/08/2025 8:08 AM EST [facility] Comment:Accuracy of [...] for testing. Comment 08/08/2025 8:08 AM EST [facility] Contract Sheltered Workshop Supervisor ID Veronica Red 025 8:08 AM EST [facility] Device ID [id number] 08/08/2025 8:08 AM EST [facility] Specimen Type POC Capillary 08/08/2025 8:08 AM EST [facility] Blood Capillary blood specimen / Unknown 08/08/2025 8:07 AM EST 08/08/2025 8:08 AM EST Oriana Castelan MD LAB POINT OF CARE TE ST DOCKED DEVICE UNSOLICITED RESULTS Final Result Performing Organization Address [facility] Co de Phone Number [facility] [address] [place] [address] * (ABNORMAL) POCT glucose meter (08/08/2025 3:48 AM EST) Pathologist [facility] POCT Glucose 277(H) 74 - 99 mg/dL 08/08/2025 3:50 AM EST [facility] Comment:Accuracy of [...] 08/08/2025 3:50 AM EST [facility] Contract Sheltered Workshop Supervisor ID Marilu Hernandez 3:50 AM EST [facility] Device ID [id number] 08/08/2025 3:50 AM EST [facility] Specimen Type POC Capillary 08/08/2025 3:50 AM EST [facility] Blood Capillary blood specimen / Unknown 08/08/2025 3:48 AM EST 08/08/2025 3:50 AM EST Oriana Castelan MD LAB POINT OF CARE TE ST DOCKED DEVICE UNSOLICITED RESULTS Final Result [facility] [address] [place] [address] * (ABNORMAL) Basic metabolic panel (08/08/2025 1:15 AM EST) Glucose, Plasma 268(H) 74 - 99 mg/dL 08/08/2025 1:54 AM EST [facility] BUN, Plasma 27(H) 7 - 21 mg/dL 08/08/2025 1:54 AM EST [facility] Creatinine, Plasma 1.45(H) 0.70 - 1.20 mg/dL 08/08/2025 1:54 AM EST [facility] BUN/Creatinine Ratio 19 08/08/2025 1:54 AM EST [facility] Sodium, Plasma 133(L) 136 - 145 mmol/L 08/08/2025 1:54 AM EST [facility] Potassium, Plasma 4.3 3.6 - 4.9 mmol/L 08/08/2025 1:54 AM EST [facility] Chloride, Plasma 99 97 - 107 mmol/L 08/08/2025 1:54 AM EST [facility] CO2, Plasma 25 22 - 29 mmol/L 08/08/2025 1:54 AM EST [facility] Anion Gap 9 6 - 16 mmol/L 08/08/2025 1:54 AM EST [facility] Total Calcium, Plasma 9.3 8.9 - 10.2 mg/dL 08/08/2025 1:54 AM EST [facility] eGFRcr 55.5 mL/min/1.7 3m*2 08/08/2025 1:54 AM EST [facility] Comment:Reported eGFRcr in m L/min/1.73m2 is based the CKD-EPI 2020 equation that does not use a race coefficient. Blood Venous blood specimen / Unknown Venipuncture / Unknown 08/08/2025 1:15 AM EST 08/08/2025 1:23 AM EST us Mery TEJEDA LAB BLOOD ORDERABLES F inal Result [facility] [address] [place] [address] * (ABNORMAL) CBC and Differential (08/08/2025 1:15 AM EST) WBC Count 9.46 3.70 - 10.30 10*3/uL LAB HEMATOLOGY METHOD 08/08/2025 1:30 AM EST [facility] RBC Count 4.49(L) 4.60 - 6.10 10*6/uL LAB HEMATOLOGY METHOD 08/08/2025 1:30 AM EST [facility] HGB 13.4(L) 13.7 - 17.5 g/dL LAB HEMATOLOGY METHOD 08/08/2025 1:30 AM EST [facility] HCT 39.8(L) 40.0 - 51.0 % LAB HEMATOLOGY METHOD 08/08/2025 1:30 AM EST [facility] Platelet Count 138(L) 155 - 369 10*3/uL LAB HEMATOLOGY METHOD 08/08/2025 1:30 AM EST [facility] MCV 89 79 - 98 fL LAB HEMATOLOGY METHOD 08/08/2025 1:30 AM EST [facility] MCH 29.8 26.0 - 32.0 pg LAB HEMATOLOGY METHOD 08/08/2025 1:30 AM EST [facility] MCHC 33.7 30.7 - 35.5 g/dL LAB HEMATOLOGY METHOD 08/08/2025 1:30 AM EST [facility] RDW 11.7 11.5 - 14.5 % LAB HEMATOLOGY METHOD 08/08/2025 1:30 AM EST [facility] MPV 12.6(H) 8.8 - 12.5 fL LAB HEMATOLOGY METHOD 08/08/2025 1:30 AM EST [facility] nRBC 0.0 <=0.0 per 100 WBCs LAB HEMATOLOGY METHOD 08/08/2025 1:30 AM EST [facility] Differential Type Automated LAB HEMATOLOGY METHOD 08/08/2025 1:30 AM [facility] Neutrophils % 79 % LAB HEMATOLOGY METHOD 08/08/2025 1:30 AM [facility] Lymphocytes % 9 % LAB HEMATOLOGY METHOD 08/08/2025 1:30 AM EST [facility] Monocytes % 10 % LAB HEMATOLOGY METHOD 08/08/2025 1:30 AM EST [facility] Eosinophils % 2 % LAB HEMATOLOGY METHOD 08/08/2025 1:30 AM EST [facility] Basophils % 0 % LAB HEMATOLOGY METHOD 08/08/2025 1:30 AM EST [facility] Immature Granulocytes % 0 % LAB HEMATOLOGY METHOD 08/08/2025 1:30 AM EST [facility] Neutrophils Absolute 7.42(H) 1.60 - 6.10 10*3/uL LAB HEMATOLOGY METHOD 08/08/2025 1:30 AM EST [facility] Lymphocytes Absolute 0.80(L) 1.20 - 3.90 10*3/uL LAB HEMATOLOGY METHOD 08/08/2025 1:30 AM EST [facility] Monocytes Absolute 0.96(H) 0.30 - 0.90 10*3/uL LAB HEMATOLOGY METHOD 08/08/2025 1:30 AM [facility] Eosinophils Absolute 0.21 0.00 - 0.50 10*3/uL LAB HEMATOLOGY METHOD 08/08/2025 1:30 AM EST [facility] Basophils Absolute 0.04 0.00 - 0.10 10*3/uL LAB HEMATOLOGY METHOD 08/08/2025 1:30 AM EST [facility] Immature Granulocytes Absolute 0.03 0.00 - 0.06 10*3/uL LAB HEMATOLOGY METHOD 08/08/2025 1:30 AM [facility] Blood Venous blood specimen / Unknown Venipuncture / Unknown 08/08/2025 1:15 AM EST 08/08/2025 1:23 AM EST [facility] - 08/08/2025 1:30 AM EST Therapeutic decision making should be based on absolute values, rather than percentages. us Mery TEJEDA LAB BLOOD ORDERABLES F inal Result [facility] [address] [place] [address] * (ABNORMAL) POCT glucose meter (08/07/2025 8:55 PM EST) POCT Glucose 305(H) 74 - 99 mg/dL 08/07/2025 8:56 PM EST [facility] Comment:Accuracy of a [...] for testing. Comment 08/07/2025 8:56 PM EST [facility] Contract Sheltered Workshop Supervisor ID Marilu Hernandez 8:56 PM EST [facility] Device ID [id number] 08/07/2025 8:56 PM EST [facility] Specimen Type POC Capillary 08/07/2025 8:56 PM EST [facility] Blood Capillary blood specimen / Unknown 08/07/2025 8:55 PM EST 08/07/2025 8:56 PM EST Oriana Castelan MD LAB POINT OF CARE TE ST DOCKED DEVICE UNSOLICITED RESULTS Final Result Performing Organization Address City/[facility]/ZIP Co de Phone Number [facility] [address] [place] [address] * (ABNORMAL) POCT glucose meter (08/07/2025 4:34 PM EST) POCT Glucose 357(H) 74 - 99 mg/dL 08/07/2025 4:37 PM EST [facility] Comment:Accuracy of a [...] for testing. Comment 08/07/2025 4:37 PM EST [facility] Contract Sheltered Workshop Supervisor ID Avani Alicia 4:37 PM EST [facility] Device ID [id number] 08/07/2025 4:37 PM EST [facility] Specimen Type POC Capillary 08/07/2025 4:37 PM EST [facility] Blood Capillary blood specimen / Unknown 08/07/2025 4:34 PM EST 08/07/2025 4:37 PM EST us Oriana Castelan MD LAB POINT OF CARE TE ST DOCKED DEVICE UNSOLICITED RESULTS Final Result [facility] [address] [place] [address] * Blood Culture (Aerobic/Anaerobet Set) (08/07/2025 7:16 AM EST) Culture No growth at day 5 08/12/2025 9:01 AM EST [facility] Blood Structure of part of right upper limb / Unknown Venipuncture / Unknown 08/07/2025 7:16 AM EST 08/07/2025 8:30 AM EST Narrative [facility] - 08/12/2025 9:01 AM EST Low blood volume submitted, results may be compromised us Luis Cody MD LAB MICROBIOLOGY - [facility] Final Result [facility] [address] [place] [address] * (ABNORMAL) Hemoglobin A1c (08/07/2025 6:42 AM EST) Hemoglobin A1c 9.5(H) <5.7 % 08/07/2025 3:41 PM EST [facility] Blood Venous blood specimen / Unknown Venipuncture / Unknown 08/07/2025 6:42 AM EST 08/07/2025 7:06 AM EST Narrative [facility] - 08/07/2025 3:41 PM EST [facility] Interpretive Data: Diagnosis of Diabetes: Diabetic > or = 6.5% Pre-diabetic 5.7 to 6.4% Non-diabetic < or = 5.6% Glycemic Targets for Type I and Type II Diabetics: Non- Adults <7.0% Adults <6.0% Children and Adolescents <7.5% Source: [place] [employer]. Standards of medical care in diabetes,2017. Diabetes Care.2017:40 (suppl 1):S1-S135. Mery TEJEDA LAB BLOOD ORDERABLES F inal Result Performing Organization Address City/[facility]/ZIP Co de Phone Number [facility] [address] [place] [address] * ED HIV 1/2 Antibody/Antigen Screen w/Reflex to HIV 1/2 Differentiation (08/07/2025 6:42 AM EST) Pathologist [facility] HIV 1 & 2 Antibody/Antigen Screen Non Reactive Non Reactive 08/07/2025 7:42 AM EST [facility] Comment:Screening for HIV 1 & 2 antibodies, and P24 antigen is NONREACTIVE. No confirmatory testing is required. Blood Venous blood specimen / Unknown Venipuncture / Unknown 08/07/2025 6:42 AM EST 08/07/2025 7:03 AM EST Luis Cody MD LAB BLOOD ORDERABLES Final Resu lt Performing Organization Address [facility] Co de Phone Number [facility] [address] [place] [address] * Hepatitis C Antibody - ED (08/07/2025 6:42 AM EST) Pathologist [facility] Hepatitis C Antibody Negative Negative 08/07/2025 7:43 AM EST [facility] Blood Venous blood specimen / Unknown Venipuncture / Unknown 08/07/2025 6:42 AM EST 08/07/2025 7:03 AM EST Luis Cody MD LAB BLOOD ORDERABLES Final Resu lt Performing Organization Address City/[facility]/ZIP Co de Phone Number [facility] [address] [place] [address] * (ABNORMAL) Sed rate, automated (08/07/2025 6:42 AM EST) Sedimentation Rate 28(H) <20 mm/hr 2024 7:44 AM EST [facility] Blood Venous blood specimen / Unknown Venipuncture / Unknown 08/07/2025 6:42 AM EST 08/07/2025 7:06 AM EST us Luis Cody MD LAB BLOOD ORDERABLES Final Resu lt Performing Organization Address [facility] Co de Phone Number [facility] [address] [place] [address] * (ABNORMAL) C-Reactive protein (08/07/2025 6:42 AM EST) CRP, Plasma 178.0(H) <=8.0 mg/L 08/07/2025 7:29 AM EST [facility] Blood Venous blood specimen / Unknown Venipuncture / Unknown 08/07/2025 6:42 AM EST 08/07/2025 7:06 AM EST Narrative [facility] - 08/07/2025 7:29 AM EST This CRP test is appropriate for assessment of infection, systemic inflammation and/or tissue injury. To assess cardiovascular disease risk order high sensitivity CRP (CRPH). us Luis Cody MD LAB BLOOD ORDERABLES Final Resu lt Performing Organization Address [facility] Co de Phone Number [facility] [address] [place] [address] * Lactic acid, venous (08/07/2025 6:42 AM EST) Lactate, Venous, Whole Blood 1.0 0.5 - 2.2 mmol/L LAB HEMATOLOGY METHOD 08/07/2025 6:54 AM EST [facility] Blood Venous blood specimen / Unknown Venipuncture / Unknown 08/07/2025 6:42 AM EST 08/07/2025 6:53 AM EST us Luis Cody MD LAB BLOOD ORDERABLES Final Resu lt Performing Organization Address City/[facility] Co de Phone Number [facility] [address] [place] [address] * Type and screen (08/07/2025 6:42 AM EST) ABO/Rh O Positive 08/07/2025 6:54 AM EST [facility] Antibody Screen Negative 08/07/2025 6:54 AM EST [facility] Specimen Expiration 08/10/2025 23:59 08/07/2025 6:54 AM EST [facility] Blood Venous blood specimen / Unknown Venipuncture / Unknown 08/07/2025 6:42 AM EST 08/07/2025 6:54 AM EST us Luis Cody MD LAB BLOOD BANK TEST ORDERABLES Final Result Performing Organization Address City/[facility]/ZIP Co de Phone Number [facility] [address] [place] [address], * Blood Culture (Aerobic/Anaerobet Set) (08/07/2025 6:42 AM EST) Culture No growth at day 5 08/12/2025 8:01 AM EST [facility] Blood Venous blood specimen / Unknown Venipuncture / Unknown 08/07/2025 6:42 AM EST 08/07/2025 7:38 AM EST us Luis Cody MD LAB MICROBIOLOGY - [facility] Final Result [facility] [address] [place] [address] * (ABNORMAL) CMP (08/07/2025 6:42 AM EST) Glucose, Plasma 248(H) 74 - 99 mg/dL 08/07/2025 7:29 AM EST [facility] BUN, Plasma 17 7 - 21 mg/dL 08/07/2025 7:29 AM EST [facility] Creatinine, Plasma 1.04 0.70 - 1.20 mg/dL 08/07/2025 7:29 AM EST [facility] BUN/Creatinine Ratio 16 08/07/2025 7:29 AM EST [facility] Sodium, Plasma 131(L) 136 - 145 mmol/L 08/07/2025 7:29 AM EST [facility] Potassium, Plasma 4.3 3.6 - 4.9 mmol/L 08/07/2025 7:29 AM EST [facility] Chloride, Plasma 98 97 - 107 mmol/L 08/07/2025 7:29 AM EST [facility] CO2, Plasma 23 22 - 29 mmol/L 08/07/2025 7:29 AM EST [facility] Anion Gap 10 6 - 16 mmol/L 08/07/2025 7:29 AM EST [facility] Total Calcium, Plasma 10.0 8.9 - 10.2 mg/dL 08/07/2025 7:29 AM EST [facility] Total Protein 7.0 6.3 - 7.9 g/dL 08/07/2025 7:29 AM EST [facility] Albumin, Plasma 3.8 3.5 - 5.2 g/dL 08/07/2025 7:29 AM EST [facility] AST, Plasma 20 10 - 50 U/L 08/07/2025 7:29 AM EST [facility] ALT, Plasma 34 10 - 50 U/L 08/07/2025 7:29 AM EST [facility] Alkaline Phosphatase, Plasma 75 40 - 115 U/L 08/07/2025 7:29 AM EST [facility] Total Bilirubin, Plasma 0.7 0.2 - 1.1 mg/dL 08/07/2025 7:29 AM EST [facility] eGFRcr 82.7 mL/min/1.7 3m*2 08/07/2025 7:29 AM EST [facility] Comment:Reported eGFRcr in m L/min/1.73m2 is based the CKD-EPI 2020 equation that does not use a race coefficient. Blood Venous blood specimen / Unknown Venipuncture / Unknown 08/07/2025 6:42 AM EST 08/07/2025 7:06 AM EST us Luis Cody MD LAB BLOOD ORDERABLES Final Resu lt [facility] [address] [place] [address] * (ABNORMAL) PT-INR (08/07/2025 6:42 AM EST) Prothrombin Time 14.7(H) 12.0 - 14.3 sec LAB COAGULATION METHOD 08/07/2025 7:45 AM EST [facility] INR 1.1 0.9 - 1.1 LAB COAGULATION METHOD 08/07/2025 7:45 AM EST [facility] Blood Venous blood specimen / Unknown Venipuncture / Unknown 08/07/2025 6:42 AM EST 08/07/2025 7:02 AM EST Narrative [facility] - 08/07/2025 7:45 AM EST OPTIMAL INR RANGES FOR PATIENT ON ORAL ANTICOAGULANT THERAPY Prevention of venous thromboembolism INR 2.0 to 3.0 In patients with heart disease: Atrial fibrillation INR 2.0 to 3.0 Valvular heart disease INR 2.0 to 3.0 Tissue heart valves INR 2.0 to 3.0 Mechanical prosthetic valves INR 2.5 to 3.5 Prevention of recurrent [place] INR 2.5 to 3.5 us Luis Cody MD LAB BLOOD ORDERABLES Final Resu lt [facility] [address] [place] [address] * (ABNORMAL) CBC w/diff (08/07/2025 6:42 AM EST) WBC Count 10.01 3.70 - 10.30 10*3/uL LAB HEMATOLOGY METHOD 08/07/2025 7:22 AM EST [facility] RBC Count 4.81 4.60 - 6.10 10*6/uL LAB HEMATOLOGY METHOD 08/07/2025 7:22 AM EST [facility] HGB 14.3 13.7 - 17.5 g/dL LAB HEMATOLOGY METHOD 08/07/2025 7:22 AM EST [facility] HCT 41.2 40.0 - 51.0 % LAB HEMATOLOGY METHOD 08/07/2025 7:22 AM EST [facility] Platelet Count 132(L) 155 - 369 10*3/uL LAB HEMATOLOGY METHOD 08/07/2025 7:22 AM EST [facility] MCV 86 79 - 98 fL LAB HEMATOLOGY METHOD 08/07/2025 7:22 AM [facility] MCH 29.7 26.0 - 32.0 pg LAB HEMATOLOGY METHOD 08/07/2025 7:22 AM [facility] MCHC 34.7 30.7 - 35.5 g/dL LAB HEMATOLOGY METHOD 08/07/2025 7:22 AM [facility] RDW 11.9 11.5 - 14.5 % LAB HEMATOLOGY METHOD 08/07/2025 7:22 AM [facility] MPV 13.0(H) 8.8 - 12.5 fL LAB HEMATOLOGY METHOD 08/07/2025 7:22 AM [facility] nRBC 0.0 <=0.0 per 100 WBCs LAB HEMATOLOGY METHOD 08/07/2025 7:22 AM [facility] Differential Type Automated LAB HEMATOLOGY METHOD 08/07/2025 7:22 AM [facility] Neutrophils % 74 % LAB HEMATOLOGY METHOD 08/07/2025 7:22 AM [facility] Lymphocytes % 11 % LAB HEMATOLOGY METHOD 08/07/2025 7:22 AM [facility] Monocytes % 13 % LAB HEMATOLOGY METHOD 08/07/2025 7:22 AM [facility] Eosinophils % 1 % LAB HEMATOLOGY METHOD 08/07/2025 7:22 AM [facility] Basophils % 0 % LAB HEMATOLOGY METHOD 08/07/2025 7:22 AM [facility] Immature Granulocytes % 1 % LAB HEMATOLOGY METHOD 08/07/2025 7:22 AM [facility] Neutrophils Absolute 7.45(H) 1.60 - 6.10 10*3/uL LAB HEMATOLOGY METHOD 08/07/2025 7:22 AM [facility] Lymphocytes Absolute 1.14(L) 1.20 - 3.90 10*3/uL LAB HEMATOLOGY METHOD 08/07/2025 7:22 AM [facility] Monocytes Absolute 1.27(H) 0.30 - 0.90 10*3/uL LAB HEMATOLOGY METHOD 08/07/2025 7:22 AM [facility] Eosinophils Absolute 0.06 0.00 - 0.50 10*3/uL LAB HEMATOLOGY METHOD 08/07/2025 7:22 AM [facility] Basophils Absolute 0.04 0.00 - 0.10 10*3/uL LAB HEMATOLOGY METHOD 08/07/2025 7:22 AM EST [facility] Immature Granulocytes Absolute 0.05 0.00 - 0.06 10*3/uL LAB HEMATOLOGY METHOD 08/07/2025 7:22 AM EST [facility] Blood Venous blood specimen / Unknown Venipuncture / Unknown 08/07/2025 6:42 AM EST 08/07/2025 7:06 AM EST Narrative [facility] - 08/07/2025 7:22 AM EST Therapeutic decision making should be based on absolute values, rather than percentages. us Luis Cody MD LAB BLOOD ORDERABLES Final Resu lt [facility] [address] [place] [address] * EKG now - STAT (adult) (08/07/2025 6:35 AM EST) EKG DIAGNOSIS CLASS Abnormal MUSE ECG Ventricular Rate 72 BPM MUSE ECG Atrial Rate 72 BPM MUSE ECG MI Interval 178 ms MUSE ECG QRSD Interval 90 ms MUSE ECG QT Interval 358 ms MUSE ECG QTC Interval 392 ms MUSE ECG P [place] 31 degrees MUSE ECG R [place] -14 degrees MUSE ECG T Wave [place] 43 degrees MUSE ECG Diagnosis Normal sinus [...] Luis Cody MD ECG ORDERABLES Final Result MUSE ECG documented in this encounter Visit [...] 1329, Until 08/16/25 at 1903, Routine, Mild + Pain > or =1: CPOT, DVPRS, FLACC, PAINAD, NPASS, NRS, Gandhi-Lynch Faces; > or =2: NIPS , headaches, fever Given 08/14/2025 8:16 PM EST [...] dose, Starting on 08/09/25 at 0059, Until Sat08/09/25 at 0129, Routine, Imaging Protocol Orders Given [...] 1329, Until 08/16/25 at 1903, Routine, Mild + Pain > or =1: CPOT, DVPRS, FLACC, PAINAD, NPASS, NRS, Gandhi-Lynch Faces; > or =2: NIPS Given 08/14/2025 8:16 PM EST 400 mg Given 08/14/2025 10:33 AM EST 400 [...] 1330, Until Sat08/16/25 at 1903, Routine, sleep Given 08/14/2025 8:16 PM EST 3 mg Given 08/11/2025 8:53 PM EST 3 mg meropenem (Merrem) 2 g in sodium chloride 0.9 % 100 mL IVPB 2 g, Intravenous, Every 8 hours, First dose on Sat08/10/25 at 1645, Until Discontinued, at 50 mL/hr, [...] on Sat08/08/25 at 1215, Until Discontinued, Routine Given 08/16/2025 [...] Until Sat08/16/25 at 1903, Routine, line care sodium chloride 0.9 % flush 10 mL 10 mL, Intravenous, Every 12 hours, First dose on Sat08/11/25 at 1230, Until Discontinued, Routine, Holding - [...] Chou LPN) 1007 (Given - Provider: Marina Madison RN) ceFAZolin (Ancef) injection 2 g 2 g, Intravenous, Every 8 hours, First dose on Sat08/13/25 at 1400, Until Discontinued, Routine 0532 (Given - Provider: Gucci Abel RN)1419 (Given - Provider: Matilde Ornelas RN)2258 (Given - Provider: Tamara Lou RN) 0632 (Given - Provider: Tamara Lou RN)1346 (Given - Provider: Olga Tomlin RN)2112 (Given - Provider: Amisha Velásquez RN) 0551 (Given - Provider: Amisha Velásquez RN)1238 (Given - Provider: Marina Madison, ORLIN) cholecalciferol [...] 0802 (Given - Provider: Matilde Ornelas RN) 08 (Given - Provider: Meena Chou LPN) 1008 (Given - Provider: Marina Madison RN) hydroCHLOROthiazide (HYDRODiuril) tablet 25 mg 25 mg, Oral, Daily, First dose on 08/07/25 at 1455, Until Discontinued, Routine 0802 (Given - Provider: Matilde Ornelas RN) 08 (Given - Provider: Meena Chou LPN) 1008 (Given - Provider: Marina Madison RN) insulin glargine-yfgn 100 UNIT/ML injection 20 Units 20 Units, Subcutaneous, 2 times daily, First dose (after last modification) on 08/09/25 at 2100, Until Discontinued, Routine 0803 (Given - Provider: Matilde Ornelas RN)2010 (Given - Provider: Tamara Lou RN) 0801 (Given - Provider: Meena Chou LPN)2111 (Given - Provider: Amisha Velásquez RN) 1010 [...] nightly (2100 & 0300), First dose on Sat08/07/25 at 2100, Until Discontinued, Routine 031 (Not Given - Provider: Gucci Abel RN - Reason: Order parameters not met)2011 (Given - Provider: Tamara Lou RN) 301 (Given - Provider: Tamara Lou RN)2112 (Given - Provider: Amisha Velásquez, ORLIN) 356 (Not Given - Provider: Amisha Velásquez RN - Reason: Order parameters not met) Insulin Lispro (Admelog, HumaLOG) 100 UNIT/ML injection 8 Units 8 Units, Subcutaneous, 3 times daily with meals, First dose (after last modification) on Sat08/10/25 at 1730, Until Discontinued, Routine 0803 (Given - Provider: Matilde Onrelas RN)1154 (Given - Provider: Matilde Ornelas RN)1652 [...] 1008 (Given - Provider: Marina Madison, ORLIN) polyethylene glycol (Miralax) packet 17 g 17 g, Oral, Daily, First dose on 08/08/25 at 1215, Until Discontinued, Routine 0802 (Given - Provider: Matilde Ornelas RN) 0804 (Given - Provider: Meena Chou LPN) 1009 (Given - Provider: Marina Madison RN) senna (Senokot) tablet 17.2 mg (COMPLETED) 17.2 mg, Oral, Once, 1 dose, On 08/15/25 at 0145, Routine 0104 (Given - Provider: Tamara Lou RN) sodium chloride 0.9 % flush 10 mL(Linked Group 1) 10 mL, Intravenous, Every 12 hours, First dose on 08/07/25 at 1335, Until Discontinued, Routine 1249 (Given - Provider: Matilde Ornelas RN)2023 (Given - Provider: Tamara Lou RN) 0051 (Given - Provider: Tamara Lou RN)1402 (Given - Provider: Olga Tomlin RN) 0037 (Not Given - Provider: Amisha Velásquez RN - Reason: Order parameters not met)1238 (Given - Provider: Marina Madison RN) PRN Medication Order 08/14/2025 08/15/2025 08/16/2025 acetaminophen (Tylenol) tablet 1,000 mg 1,000 mg, Oral, Every 6 hours PRN, Starting on 08/07/25 at 1329, Until 08/16/25 at 1903, Routine, Mild + Pain > or =1: CPOT, DVPRS, FLACC, PAINAD, NPASS, NRS, Gandhi-Lynch Faces; > or =2: NIPS , headaches, fever 1035 (Canceled Entry - Provider: [...] 08/07/25 at 1449, Until Sat08/16/25 at 1903, Administer over 15 Minutes, Routine, PRN low blood sugar BG =/<50 mg/dL glucagon (human recombinant) injection 1 mg(Linked Group 2) 1 mg, Intramuscular, Every 15 min PRN, Starting on 08/07/25 at 1449, Until Sat08/16/25 at 1903, Routine, low blood sugar per [...] PRN, Starting on 08/07/25 at 1329, Until Sat08/16/25 at 1903, Routine, Mild + Pain > or =1: CPOT, DVPRS, FLACC, PAINAD, NPASS, NRS, Gandhi-Lynch Faces; > or =2: NIPS 1033 (Given - Provider: Klarissa Whitehead RN)2016 (Given - Provider: Tamara Lou, RN) melatonin tablet 3 mg 3 mg, Oral, [...] Until Sat08/16/25 at 1903, Routine, line care Group 2: [...] 08/07/25 at 1449, Until Sat08/16/25 at 1903, Administer over 15 Minutes, Routine, low blood sugar BG 51-89 mg/dL Or dextrose 10 % (D10W) bolus 250 mLJump to med 250 mL, Intravenous, Every 15 min PRN, Starting on 08/07/25 at 1449, Until Sat08/16/25 at 1903, Administer over 15 Minutes, Routine, PRN low blood sugar BG =/<50 mg/dL Or glucagon (human recombinant) injection 1 mgJump to med 1 mg, Intramuscular, Every 15 min PRN, Starting on 08/07/25 at 1449, Until Sat08/16/25 at 1903, Routine, low blood sugar per Hypoglycemia Prevention and Treatment protocol documented in this encounter Additional Health Concerns Assessment Noted Time A Body Mass Index follow-up plan has been documented for the patient 08/16/2025 2:54 PM EST documented as of this encounter Care Teams Tail Sawyer Relationship Specialty Start Date End Date Iraida Reese APRN [address] [place] [address] PCP - General 08/07/25 documented as of this encounter
--- OUTSIDE RECORDS SUMMARY | 2025-08-11 12:00 | XMS_ITS | Encounter Summary ---
Author Organization Healthcare Address [address] [place] [address] Care Team Providers Care Sales Order Specialist Name Role Phone Iraida Reese APRN Primary Care Provider [phone] Reason for Visit * Reason Comments Foot Infection * Auth/Cert (Routine) Specialty Diagnoses / Procedures Referred By Darrell lin Referred To Contact Diagnoses Cellulitis and abscess of toe of left foot necrotizing fasciitis of left foot Oriana Castelan MD [address] [place] [address] Phone: tel: fax: PAV A Inpatient [address] [place] [address] Referral ID Status Reason Start Date Expiration Date Visits Re quested Visits Authorized [id number] 1 1 Encounter Details Date Type Department Care Team (Late st Contact Info) Description 08/11/2025 12:00 PM EST - 08/11/2025 1:30 PM EST Surgery PAV A OPERATING ROOM [address] [place] [id number] Andie Moyer MD [address] [address] AMPUTATION,TOE Surgery Details Date/Time Status Location OR Service Patient Class Case Class Case Type Trauma Case? 08/11/2025 12:00 PM Posted BUZZ OR PAVA OR 16 Vascular Surgery Inpatient [...] any time in the past 12 m [facility], were you homeless or living in a group home (including now)? No 08/09/2025 [facility] Utilities Answer Date Recorded In the past [...] Answer Date of Assessment Author Precautions Environmental surveillance;Fall risk 08/11/2025 1:15 PM EST Vidhya Magdaleno RN * Are you deaf or do [...] 2:53 PM EST Marina Madison RN * Question Answer Date of Assessment Author Precautions Environmental surveillance;Fall risk 08/11/2025 1:15 PM EST Vidhya Magdaleno RN * Calculated C-SSRS Risk Score (Lifetime/Recent) Answer Date of Assessment Author No Risk Indicated 08/10/2025 8:00 PM EST Liam Vaz RN * Question Answer Date of Assessment Author 1. Wish to be (Past 1 Month) No 8:00 PM EST Kayla Vaz RN 2. Non-Specific Active Suici ramsey Thoughts (Past 1 Month) No 08/10/2025 8:00 PM Kayla Preston, RN 6. Suicidal Behavior (Lifetime) No 8:00 PM Kayla Preston, RN documented as of this encounter Mental Status * Question Answer Entry Date Author Precautions Environmental surveillance;Fall risk 08/11/2025 1:15 PM Vidhya Pino, RN * Because of a physical, mental, [...] Miscellaneous Notes * Progress Notes - Consuelo Solano, RN [...] Pain and Promote Comfort Flowsheets (Taken 08/16/2025 0803) Pain Management Interventions: medication (see MAR) Problem: [...] Healing Flowsheets (Taken 08/15/2025 2220 by Amisha Velásquez RN) Sleep/Rest Enhancement: awakenings [...] Note Hi Goode 60 y.o. male CSN: [id number] Admission: 08/07/2025 5:18 AM Primary Problem: Cellulitis and abscess of toe of left foot Patient medically ready for discharge. Patient to discharge home with family to transport. Patient to follow up with wound care clinic. Primary Spanish Speaking Babysitter: Primary Caregiver: Self Assistance Available at Discharge: [...] insurance) Follow-up: Andie Moyer MD [address] [facility] [address] [facility] [address] Iraida Reese APRN [address] [place], [place] [id number] Schedule an appointment as soon as possible for a visit Coy, Bria Clark MD [address] [place] [address] [place] [phone] All follow up provided in AVS. Discharge [...] PCP name and Address: Iraida Reese APRN [address] [place] [address] / [place] [address] Referring provider name and address: Bria Coy MD [address] [place] [address] [place] [address] Chief Concern, Brief History of Present Illness, [...] Your Medications These medications were sent to [facility] [place], [place] - [address] [facility] [address] Alcoh-Wipe sheet Blood Glucose Monitoring Suppl device [...] Center 08/31/2025 11:20 AM Renea Li PA [facility] Test Results Pending At Discharge Pending Labs [...] Note Hi Goode 60 y.o. male CSN: [id number] This is a 60 y.o. male patient was admitted to [facility] with the diagnosis of Cellulitis, Dm education [...] education completion. Education Time 60 minutes Margaret Steve, RN * Progress Notes - Jessica Dunne [...] Buzz on 08/07/25 as a transfer from [facility] with a left 4th toe puncture wound of two days duration. 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 Pt reports he removed nail andcleaned wound. He developed pain/swelling of L 4th toe 08/06/2025 and seen at [facility] where he was given Levofloxacin and [...] Daily Mery Garcia PA 40 mg at 08/15/25 08 melatonin tablet 3 mg 3 mg Oral Nightly PRN Mery Garcia PA 3 mg at 08/14/252015 multivitamin (Theragran-M) tablet 1 tablet 1 tablet Oral Daily Mery Garcia PA 1 tabletat 08/15/25 0801 polyethylene glycol (Miralax) packet 17 g [...] Progressing Intervention: Optimize Skin Protection Flowsheets (Taken 08/15/20250) Activity Management: activity adjusted per tolerance Pressure [...] Progressing Flowsheets (Taken 08/14/2025 07 by Matilde Ornelas RN) Progress: improving Plan [...] reach Intervention: Promote Injury-Free Environment Flowsheets (Taken 08/14/2025 0704) Safety Promotion/Fall Prevention: activity supervised * Care [...] and vancomycin and starting cefazolin. PT/OT consulted Vas surgery rec'd: - Recommend WTD dressing [...] Intervention: Prevent Skin Injury Flowsheets (Taken 08/13/2025 1035) Body Position: heels elevated Skin Protection: protective footwear used transparent dressing maintained Intervention: Prevent and Manage VTE (Venous Thromboembolism) Risk Flowsheets (Taken 08/13/2025 103) VTE Prevention/Management: previous patient education reinforced Intervention: [...] Intervention: Identify and Manage Contributors Flowsheets (Taken 08/13/20251034) Medication Review/Management: medications reviewed Self-Care Promotion: independence [...] Intervention: Provide Person-Centered Care Flowsheets (Taken 08/13/2025 0457) Trust Relationship/Rapport: care explained choices provided questions [...] admission Level of Mobility: Ambulatory- community Mobility [place]: Independent gait without device History of Falls: [...] Mobility Exam: Supine to Sit Level of Wellesley: Modified [place] Physical/Nonphysical Assist: [facility] elevated Bed Mobility Exam: Sit to Supine Level of [place]: Modified independence Physical/Nonphysical Assist: [facility] elevated Transfers Transfer Exam: Sit to stand Level of [place]: Stand-by assist Physical/Nonphysical Assist: Verbal Cues, Minimal cues Assistive Device: Crutches, axillary Transfer Exam: Stand to Sit Level of Wellesley: Stand-by assist Physical/Nonphysical Assist: Verbal Cues, Minimal [...] provided. Standardized Assessments Standardized Assessments Standardized Assessments: [facility] 6-Clicks Mobility Assessment [facility] 6-Clicks Mobility Assessment Difficulty patient has [...] 3-5 steps with a railing?: A little [facility] 6-Clicks Mobility Assessment Total : 23 [...] from the original note were not included. [facility] Department of Surgery Division of [...] (in remission), and depression who presented to [facility] with left fourth toe wound [...] PM EST Operative Note Date: 08/11/25 Location: [facility] OR Name: Hi Goode, : 1965, Diagnoses: Pre-op Diagnosis Cellulitis and abscess of toe of left foot Post-op Diagnosis Cellulitis and abscess of toe of left foot Procedure(s): Left 4th toe amputation. Attending Surgeon(s): * Andie Moyer - Primary Landfill Gas Collection Operator(s): * Aakash Frausto MD - Resident - [...] T2DM, HTN, and HLD who [facility] as a transfer from [facility] with a left 4th toe puncture wound of two days duration. 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 Pt reports he removed nail andcleaned wound. He developed pain/swelling of L 4th toe 08/06/2025 and seen at [facility] where he was given Levofloxacin and [...] meals Fabienne Palm MD 4 Units at 08/11/25 0825 insulin lispro (Admelog) injection - Correction - [...] injury was at suburban construction site in [facility]. Also has cats at home, [...] Note Hi Goode 60 y.o. male CSN: [id number] Admission: 08/07/2025 5:18 AM Primary Problem: Cellulitis [...] Minimize and Manage Infection Progression Flowsheets Taken 08/11/20251100 Infection Management: aseptic technique maintained Fever Reduction/Comfort [...] Note Hi Goode 60 y.o. male CSN: [id number] Room/Bed OR/- Nutrition evaluation type: screen Reason [...] (98.6 ??F) Oxygen Therapy: None (Room air) [place] Coma Scale Score: 15 Garry Scale Score: [...] (Calculated): 27.65 Weight Evaluation: Overweight (BMI 25-29.9) Wasta Body Weight (kg): 67.2 Percent Wasta Body Weight: 118 Estimated Needs: Metabolic Cart Study Results: Current Nutrition Intake: Diet Order: Adult Diet Diet Texture: Regular Adult Carbohydrate Restriction: Consistent CHO 2 (0977-2880 Mundo, 80 g/meal) Percent Meals Eaten (%): 100% 08/11: Pt NPO today Diet Experience and Nutrition History: Diet Education Provided: Will monitor Pertinent home medications: atorvastatin, bupropion, vitamin D3, finasteride, glipizide, insulin, lisinopril-hydrochlorothiazide, MVI Religion needs: Nutrition Focused Physical Exam: Unable to [...] and skin integrity. Acuity Level: 1 Mikki Poli Martin, RD, LD [1] Past Medical History: [...] from the original note were not included. [facility] Department of Surgery Division of Vascular Surgery [...] remission), and depression who [facility] on 08/07[facility]2025 with left fourth toe wound. [...] History Administered Date(s) Administered Moderna COVID-19 Vaccine (Nnp) 12+ years 06/22/2021, 07/21/2021, 01/25/2022 Moderna COVID-19 [...] (in remission), and depression who presented to [facility] with left fourth toe wound [...] Daily Mery Garcia PA 150 mg at 08/10/2536 cholecalciferol (Vitamin D-3) tablet 1,000 Units 1,000 [...] and plan as documented. 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 REVIEW OF SYSTEMS 14 point [...] off Cody Ledezma MD PGY-3, Orthopaedic Surgery [facility] Orthopaedic Trauma Service Pager: [phone] Orthopaedic Recon/Spine/Foot and Ankle Service Pager: [phone] [1] Past Medical History: Diagnosis Date Essential [...] Uche Fonseca MD, 8 Units at 08/10/25 163 lisinopril tablet 40 mg, 40 mg, Oral, Daily, Mery Garcia PA, 40 mg at 08/10/25829 melatonin tablet 3 mg, 3 mg, Oral, Nightly PRN, Mery Garcia PA meropenem (Merrem) 2 g in sodium chloride 0.9 % 100 mL IVPB, 2 g, Intravenous, q8h, Uche Fonseca MD, Last Rate: 50 mL/hr at 08/10/25 163, 2 g at 08/10/25 163 multivitamin (Theragran-M) tablet 1 tablet, 1 tablet, [...] with who does not drive. Cousin, Sabina ([phone]) who can provide with transportation to hospital for OPAT evaluation on Saturday 12/2 PM. OPAT NN will continue to follow. Consuelo Solano RN 08/10/2025 * Progress Notes - Raymond Morris MD - 08/10/2025 4:43 PM EST Images from the original note were not included. [facility] Department of Surgery Division of Acute Care [...] Edited by: Raymond Morris MD at 08/10/2025 2729 Review of Systems: Relevant review of systems [...] Edited by: Raymond Morris MD at 08/10/2025 2787 Dispo: The EGS team is available for questions or concerns Ralph Morris MD General Surgery, PGY 2 Pager: [phone] Cosigned by Carli Murrell MD at 08/16/2025 [...] Manage VTE (Venous Thromboembolism) Risk Flowsheets (Taken 08/10/20251536) VTE Prevention/Management: education provided medication Intervention: Prevent Infection Flowsheets (Taken 08/10/20251536) Infection Prevention: environmental surveillance performed equipment surfaces disinfected hand hygiene promoted single patient room provided rest/sleep promoted personal protective equipment utilized Goal: Optimal Comfort and Wellbeing Outcome: Ongoing, Progressing Intervention: Monitor Pain and Promote Comfort Flowsheets (Taken 08/10/20251536) Pain Management Interventions: rest Intervention: Provide Person-Centered Care Flowsheets (Taken 08/10/20251536) Trust Relationship/Rapport: care explained choices provided emotional [...] Intervention: Prevent or Manage Pain Flowsheets (Taken 08/10/20251536) Sensory Stimulation Regulation: quiet environment promoted Complementary [...] Buzz on 08/07/25 as a transfer from [facility] with a left 4th toe puncture wound of two days duration. 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 Pt reports he removed nail andcleaned wound. He developed pain/swelling of L 4th toe 08/06/2025 and seen at [facility] where he was given Levofloxacin and [...] mealsMery Garcia PA 5 Units at 08/10/25 114 lisinopril tablet 40 mg 40 mg Oral [...] injury was at suburban construction site in [facility]. Also has cats at home, [...] Develop Pain Management Plan Flowsheets (Taken 08/10/2025 05) Pain Management Interventions: medication (see MAR) Intervention: [...] Daily, Mery Garcia PA, 5 mg at 8 hydroCHLOROthiazide (HYDRODiuril) tablet 25 mg, 25 mg, [...] Mery Garcia PA, 5 Units at 08/09/25 124 lisinopril tablet 40 mg, 40 mg, Oral, [...] EHR 08/07/2025 BLD - NGTD 08/07/2025 HIV fya negative 08/07/2025 HCV fay negative STUDIES: STUDIES [...] including DM; peripheral neuropathy. Pt works delivering [employer], glass, and on 08/05/2025 stepped on nichole or homewrap nail, whichpunctured through shoe and LEFT 4th toe. Pt reports he removed nail and cleaned wound. Pt developedpain/swelling of L 4th toe 08/06/2025 and seen at [facility]. Pt rx'ed on Levofloxacin and Clindamycin, [...] Re: antibiotics: For now, while inpatient at [facility], pending the above: Continue empiric, [...] Note Hi Goode 60 y.o. male CSN: [id number] Admission: 08/07/2025 5:18 AM Primary Problem: Cellulitis and abscess of toe of left foot Chief Innovation Officer reviewed chart and spoke with patient at bedside to complete this Initial Case Management Assessment. PCP: Iraida Reese APRN Emergency Contact: No emergency contact information on file. Insurance: Primary Visit Coverage Payer Plan Sponsor Code Group Number Group Name PAS[employer]ORT MEDICAID MICHAEL PASSPORT MICHAEL MEDICAID Primary Visit Coverage Subscriber Subscriber ID Subscriber Name Subscriber SSN Subscriber Address [id number] Hi Goode [id number] [address] [place] [address] Patient information: Primary Caregiver: Self Support System: Immediate family Daily Living Activities: Functional Status: Independent Living Arrangements: Spouse/Significant other Type of Residence: Private residence, Multi Level ([address]) [address] [place] [address] Smoker in the Home?: No Current DME: [...] Dialysis Services: None Living Will/Advance Directive/Power of Dog Boarder /Guardian: Advance Directive: Patient does not have [...] Intervention: Prevent Skin Injury Flowsheets Taken 08/09/2025 08 by Mckenzie Ashford RN Body Position: weight [...] Manage Pain Flowsheets Taken 08/08/20252210 by Maximo Escamilla, RN Sensory Stimulation Regulation: care clustered quiet [...] Hi Goode PCP: Iraida Reese, CHAKA Date: 08/09/2025 Day of admission: 2 Subjective [...] emergency contact information on file. Fabienne Palm [facility] This dictation was prepared using voice [...] Daily, Fabienne Palm MD, 250 mg at 08/09/25 0917 finasteride (Proscar) tablet 5 mg, 5 mg, [...] 0-10 Units, Subcutaneous, TID with meals, Fabienne Plam MD, 6 Units at 08/09/251818 insulin lispro [...] at 08/09/25 1246, 3.375 g at 08/09/25 124 polyethylene glycol (Miralax) packet 17 g, 17 [...] Prevent or Manage Pain Flowsheets Taken 08/08/2025 151 by Olga Tomlin, RN Sensory Stimulation Regulation: [...] Mery Garcia PA, 40 mg at 08/08/25 08 melatonin tablet 3 mg, 3 mg, Oral, Nightly PRN, Mery Garcia PA multivitamin (Theragran-M) tablet 1 tablet, 1 tablet, Oral, Daily, Mery Garcia PA, 1 tablet at 08/08/25804 piperacillin-tazobactam (Zosyn) 3.375 g in sodium chloride 0.9% 100 mL IVPB (vial adapter required), 3.375 g, Intravenous, q6h, Mery Garcia PA, Last Rate: 36.7 mL/hr at 08/08/25 08, 3.375 g at 08/08/25 0801 polyethylene glycol [...] medications reviewed * Progress Notes - Amada Escobar PharmD - 08/07/2025 7:15 PM EST Pharmacokinetic [...] T2DM, HTN, and HLD who presented to [facility] on 08/07/25 as a transfer from [facility] with a left 4th toe puncture wound of two days duration. ID team were consulted to provide recommendations on antibiotics andfurther workup for puncture wound. Mr. Goode presented to [facility] on the evening of 08/06/25 after stepping on a nail that went through his left shoe on 08/05/25 while helping a friend replace windows. He removed the nail and washed out the wound with peroxide but soon developed worsened pain and chills with streaking on Saturday, 08/06. At [facility] he was started on levaquin and [...] above history. 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 The following complex inpatient infectious disease services were performed today: Complex antimicrobial therapy counseling and treatment * H&P - Mery Garcia PA - 08/07/2025 1:34 PM ESTAssociated Order(s): [facility] Images from the original note were not included. Consult to [facility] Consult performed by: Mery Garcia PA Consult ordered by: Zay Dave MD Reason for consult: Admission Subjective Chief complaint Left foot pain after stepping on a nail two days ago. History Of Present Illness Hi Goode is a 60 y.o. male with PMH of insulin-dependent DM type II, HTN, and HLD, who presented 08/07/25 in transfer from [facility] with a left 4th toe puncture [...] discussed with Dr. Conroy, Attending Physician Bernice Grmialdo MD [1] No family history on file. [...] Nicotine Replacement Until discontinued Acknowledged MERY GARCIA 08/07/25 1332 Adult diet Diet texture: Regular; [...] And Linked Group Completed MERY GARCIA 08/07/25 133 Saline lock IV Once Placed in And Linked Group Completed MERY GARCIA 08/07/25 1002 Consult to [facility] Once Specialty: Internal Medicine Provider: (Not yet [...] [facility] ED Course as of 08/07/25 182 Sat Aug 07, 2025 06 Upon initial [...] None Disposition Admit Admitting/Attending Physician: ORIANA CASTELAN [[id number]] Provider Care Team: BUZZ 7 [190] Are [...] AM EST Patient arrives via EMS from [facility] for possible nec fasc in left 4th toe. Patient stepped on nail on . A&Ox4 on arrival. documented in this encounter Plan of Treatment Upcoming Encounters Date Type Department Care Team (Late st Contact Info) Description 08/31/2025 11:20 AM EST Office Visit [facility] [address] [place] [address] Renea Li, [place] [address] [place] [address] Pending Results Name Type Priority Associated Diagnoses [...] POCT glucose meter (08/16/2025 4:18 PM EST) [facility] POCT Glucose 123(H) 74 - 99 mg/dL [...] for testing. Comment 08/16/2025 4:20 PM EST [facility] Personal Financial Representative ID Carmen Reyes 4:20 PM EST [facility] Device ID [id number] 08/16/2025 4:20 PM EST [facility] Specimen Type POC Capillary 08/16/2025 4:20 PM EST [facility] Blood Capillary blood specimen / Unknown 08/16/2025 4:18 PM EST 08/16/2025 4:20 PM EST Uche Fonseca MD LAB POINT OF CARE TE ST DOCKED DEVICE UNSOLICITED RESULTS Final Result Performing Organization Address City/State/[facility] Co de Phone Number [facility] [address] [place] [address] * (ABNORMAL) POCT glucose meter (08/16/2025 11:12 AM EST) [facility] POCT Glucose 269(H) 74 - 99 mg/dL 08/16/2025 11:13 AM EST [facility] Comment:Accuracy of a glucos e result [...] 08/16/2025 11:13 AM EST [facility] Personal Financial Representative ID Carmen Reyes 11:13 AM EST [facility] Device ID [id number] 08/16/2025 11:13 AM EST [facility] Specimen Type POC Capillary 08/16/2025 11:13 AM EST [facility] Blood Capillary blood specimen / Unknown 08/16/2025 11:12 AM EST 08/16/2025 11:13 AM EST Uche Fonseca MD LAB POINT OF CARE TE ST DOCKED DEVICE UNSOLICITED RESULTS Final Result Performing Organization Address [facility] Co de Phone Number [facility] [address] [place] [address] * (ABNORMAL) POCT glucose meter (08/16/2025 8:02 AM EST) POCT Glucose 182(H) 74 - 99 mg/dL 08/16/2025 8:03 AM EST [facility] Comment:Accuracy of a [...] for testing. Comment 08/16/2025 8:03 AM EST [facility] Personal Financial Representative ID Carmen eRyes 8:03 AM EST [facility] Device ID [id number] 08/16/2025 8:03 AM EST [facility] Specimen Type POC Capillary 08/16/2025 8:03 AM EST [facility] Blood Capillary blood specimen / Unknown 08/16/2025 8:02 AM EST 08/16/2025 8:03 AM EST Uche Fonseca MD LAB POINT OF CARE TE ST DOCKED DEVICE UNSOLICITED RESULTS Final Result Performing Organization Address City/[facility] Co de Phone Number [facility] [address] [place] [address] * Phosphorus, Plasma (08/16/2025 2:57 AM EST) Pathologist [facility] Phosphorus, Plasma 2.6 2.5 - 4.5 mg/dL 08/16/2025 3:36 AM EST [facility] Blood Venous blood specimen / Unknown Venipuncture / Unknown 08/16/2025 2:57 AM EST 08/16/2025 3:05 AM EST us Fabienne Palm MD LAB BLOOD ORDERABLES Coleen l Result [facility] [address] [place] [address] * Magnesium, Plasma (08/16/2025 2:57 AM EST) Magnesium, Plasma 2.1 1.9 - 2.4 mg/dL 08/16/2025 3:36 AM EST [facility] Blood Venous blood specimen / Unknown Venipuncture / Unknown 08/16/2025 2:57 AM EST 08/16/2025 3:05 AM EST us Fabienne Palm MD LAB BLOOD ORDERABLES Coleen l Result Performing Organization Address [facility]/ZIP Co de Phone Number [facility] [address] [place] [address] * (ABNORMAL) Comprehensive metabolic panel (08/16/2025 2:57 AM EST) Glucose, Plasma 198(H) 74 - 99 mg/dL 08/16/2025 3:36 AM EST [facility] BUN, Plasma 30(H) 7 - 21 mg/dL 08/16/2025 3:36 AM EST [facility] Creatinine, Plasma 1.03 0.70 - 1.20 mg/dL 08/16/2025 3:36 AM EST [facility] BUN/Creatinine Ratio 29 08/16/2025 3:36 AM EST [facility] Sodium, Plasma 133(L) 136 - 145 mmol/L 08/16/2025 3:36 AM EST [facility] Potassium, Plasma 4.1 3.6 - 4.9 mmol/L 08/16/2025 3:36 AM EST [facility] Chloride, Plasma 100 97 - 107 mmol/L 08/16/2025 3:36 AM EST [facility] CO2, Plasma 22 22 - 29 mmol/L 08/16/2025 3:36 AM EST [facility] Anion Gap 11 6 - 16 mmol/L 08/16/2025 3:36 AM EST [facility] Total Calcium, Plasma 9.5 8.9 - 10.2 mg/dL 08/16/2025 3:36 AM EST [facility] Total Protein 6.4 6.3 - 7.9 g/dL 08/16/2025 3:36 AM EST [facility] Albumin, Plasma 3.3(L) 3.5 - 5.2 g/dL 08/16/2025 3:36 AM EST [facility] AST, Plasma 57(H) 10 - 50 U/L 08/16/2025 3:36 AM EST [facility] ALT, Plasma 55(H) 10 - 50 U/L 08/16/2025 3:36 AM EST [facility] Alkaline Phosphatase, Plasma 90 40 - 115 U/L 08/16/2025 3:36 AM EST [facility] Total Bilirubin, Plasma <0.2(L) 0.2 - 1.1 mg/dL 08/16/2025 3:36 AM EST [facility] eGFRcr 83.7 mL/min/1.7 3m*2 08/16/2025 3:36 AM EST [facility] Comment:Reported eGFRcr in m L/min/1.73m2 is based the CKD-EPI 2020 equation that does not use a race coefficient. Blood Venous blood specimen / Unknown Venipuncture / Unknown 08/16/2025 2:57 AM EST 08/16/2025 3:05 AM EST us Mery TEJEDA LAB BLOOD ORDERABLES F inal Result [facility] [address] [place] [address] * (ABNORMAL) CBC and differential (08/16/2025 2:57 AM EST) WBC Count 6.91 3.70 - 10.30 10*3/uL LAB HEMATOLOGY METHOD 08/16/2025 3:17 AM EST [facility] RBC Count 4.69 4.60 - 6.10 10*6/uL LAB HEMATOLOGY METHOD 08/16/2025 3:17 AM EST [facility] HGB 13.7 13.7 - 17.5 g/dL LAB HEMATOLOGY METHOD 08/16/2025 3:17 AM [facility] HCT 40.1 40.0 - 51.0 % LAB HEMATOLOGY METHOD 08/16/2025 3:17 AM [facility] Platelet Count 214 155 - 369 10*3/uL LAB HEMATOLOGY METHOD 08/16/2025 3:17 AM [facility] MCV 86 79 - 98 fL LAB HEMATOLOGY METHOD 08/16/2025 3:17 AM [facility] MCH 29.2 26.0 - 32.0 pg LAB HEMATOLOGY METHOD 08/16/2025 3:17 AM [facility] MCHC 34.2 30.7 - 35.5 g/dL LAB HEMATOLOGY METHOD 08/16/2025 3:17 AM [facility] RDW 11.4(L) 11.5 - 14.5 % LAB HEMATOLOGY METHOD 08/16/2025 3:17 AM [facility] MPV 11.8 8.8 - 12.5 fL LAB HEMATOLOGY METHOD 08/16/2025 3:17 AM [facility] nRBC 0.0 <=0.0 per 100 WBCs LAB HEMATOLOGY METHOD 08/16/2025 3:17 AM [facility] Differential Type Automated LAB HEMATOLOGY METHOD 08/16/2025 3:17 AM [facility] Neutrophils % 59 % LAB HEMATOLOGY METHOD 08/16/2025 3:17 AM [facility] Lymphocytes % 24 % LAB HEMATOLOGY METHOD 08/16/2025 3:17 AM [facility] Monocytes % 11 % LAB HEMATOLOGY METHOD 08/16/2025 3:17 AM [facility] Eosinophils % 4 % LAB HEMATOLOGY METHOD 08/16/2025 3:17 AM [facility] Basophils % 1 % LAB HEMATOLOGY METHOD 08/16/2025 3:17 AM [facility] Immature Granulocytes % 1 % LAB HEMATOLOGY METHOD 08/16/2025 3:17 AM [facility] Neutrophils Absolute 4.13 1.60 - 6.10 10*3/uL LAB HEMATOLOGY METHOD 08/16/2025 3:17 AM [facility] Lymphocytes Absolute 1.66 1.20 - 3.90 10*3/uL LAB HEMATOLOGY METHOD 08/16/2025 3:17 AM [facility] Monocytes Absolute 0.75 0.30 - 0.90 10*3/uL LAB HEMATOLOGY METHOD 08/16/2025 3:17 AM EST [facility] Eosinophils Absolute 0.25 0.00 - 0.50 10*3/uL LAB HEMATOLOGY METHOD 08/16/2025 3:17 AM EST [facility] Basophils Absolute 0.08 0.00 - 0.10 10*3/uL LAB HEMATOLOGY METHOD 08/16/2025 3:17 AM EST [facility] Immature Granulocytes Absolute 0.04 0.00 - 0.06 10*3/uL LAB HEMATOLOGY METHOD 08/16/2025 3:17 AM EST [facility] Blood Venous blood specimen / Unknown Venipuncture / Unknown 08/16/2025 2:57 AM EST 08/16/2025 3:06 AM EST Narrative [facility] - 08/16/2025 3:17 AM EST Therapeutic decision making should be based on absolute values, rather than percentages. [employer] LAB BLOOD ORDERABLES F inal Result Performing Organization Address City/[facility]/ZIP Co de Phone Number [facility] [address] [place] [address] * (ABNORMAL) C-Reactive Protein, Plasma (08/16/2025 2:57 AM EST) CRP, Plasma 8.6(H) <=8.0 mg/L 08/16/2025 3:36 AM EST [facility] Blood Venous blood specimen / Unknown Venipuncture / Unknown 08/16/2025 2:57 AM EST 08/16/2025 3:05 AM EST Narrative [facility] - 08/16/2025 3:36 AM EST This CRP test is appropriate for assessment of infection, systemic inflammation and/or tissue injury. To assess cardiovascular disease risk order high sensitivity CRP (CRPH). [employer] LAB BLOOD ORDERABLES F inal Result Performing Organization Address City/[facility]/ZIP Co de Phone Number [facility] [address] [place] [address] * (ABNORMAL) POCT glucose meter (08/15/2025 7:29 PM EST) Pathologist [facility] [place] POCT Glucose 260(H) 74 - 99 mg/dL [...] for testing. Comment 08/15/2025 7:30 PM EST [facility] Personal Financial Representative ID Carmen 08/15/2025 7:30 PM EST [facility] Device ID [id number] 08/15/2025 7:30 PM EST [facility] Specimen Type POC Capillary 08/15/2025 7:30 PM EST [facility] Blood Capillary blood specimen / Unknown 08/15/2025 7:29 PM EST 08/15/2025 7:30 PM EST Uche Fonseca MD LAB POINT OF CARE TE ST DOCKED DEVICE UNSOLICITED RESULTS Final Result Performing Organization Address City/State/[facility] de Phone Number [facility] [address] [place] [address] * (ABNORMAL) POCT glucose meter (08/15/2025 4:03 PM EST) [facility] POCT Glucose 195(H) 74 - 99 [...] 08/15/2025 4:05 PM EST [facility] Personal Financial Representative ID Mare Dunne 08/15/2025 4:05 PM EST [facility] Device ID [id number] 08/15/2025 4:05 PM EST [facility] Specimen Type POC Capillary 08/15/2025 4:05 PM EST [facility] Blood Capillary blood specimen / Unknown 08/15/2025 4:03 PM EST 08/15/2025 4:05 PM EST Uche Fonseca MD LAB POINT OF CARE TE ST DOCKED DEVICE UNSOLICITED RESULTS Final Result Performing Organization Address [facility] de Phone Number [facility] [address] [place] [address] * (ABNORMAL) POCT glucose meter (08/15/2025 11:00 [...] 08/15/2025 11:01 AM EST [facility] Personal Financial Representative ID Mare Dunne 08/15/2025 11:01 AM EST [facility] Device ID [id number] 08/15/2025 11:01 AM EST [facility] Specimen Type POC Capillary 08/15/2025 11:01 AM EST [facility] Blood Capillary blood specimen / Unknown 08/15/2025 11:00 AM EST 08/15/2025 11:01 AM EST Uche Fonseca MD LAB POINT OF CARE TE ST DOCKED DEVICE UNSOLICITED RESULTS Final Result Performing Organization Address City/[facility] Co de Phone Number [facility] [address] [place] [address] * (ABNORMAL) POCT glucose meter (08/15/2025 7:14 [...] 08/15/2025 7:16 AM EST [facility] Personal Financial Representative ID Mare Dunne 08/15/2025 7:16 AM EST [facility] Device ID [id number] 08/15/2025 7:16 AM EST [facility] Specimen Type POC Capillary 08/15/2025 7:16 AM EST [facility] Blood Capillary blood specimen / Unknown 08/15/2025 7:14 AM EST 08/15/2025 7:16 AM EST us Uche Fonseca MD LAB POINT OF CARE TE ST DOCKED DEVICE UNSOLICITED RESULTS Final Result Performing Organization Address City/[facility] Co de Phone Number [facility] [address] [place] [address] * (ABNORMAL) POCT glucose meter (08/15/2025 3:10 AM EST) [facility] Signature POCT Glucose 242(H) 74 - 99 mg/dL 08/15/2025 3:12 AM EST [facility] Comment:Accuracy of a glucos e result [...] for testing. Comment 08/15/2025 3:12 AM EST [facility] Personal Financial Representative ID Willian Hicks 3:12 AM EST [facility] Device ID [id number] 08/15/2025 3:12 AM EST [facility] Specimen Type POC Capillary 08/15/2025 3:12 AM EST [facility] Blood Capillary blood specimen / Unknown 08/15/2025 3:10 AM EST 08/15/2025 3:12 AM EST us Uche Fonseca MD LAB POINT OF CARE TE ST DOCKED DEVICE UNSOLICITED RESULTS Final Result Performing Organization Address City/[facility]/ZIP Co de Phone Number [facility] [address] [place] [address] * Phosphorus, Plasma (08/15/2025 1:24 AM EST) Phosphorus, Plasma 3.2 2.5 - 4.5 mg/dL 08/15/2025 1:57 AM EST [facility] Blood Venous blood specimen / Unknown Venipuncture / Unknown 08/15/2025 1:24 AM EST 08/15/2025 1:28 AM EST us Fabienne Palm MD LAB BLOOD ORDERABLES Coleen l Result [facility] [address] [place] [address] * Magnesium, Plasma (08/15/2025 1:24 AM EST) Magnesium, Plasma 2.0 1.9 - 2.4 mg/dL 08/15/2025 1:57 AM EST [facility] Blood Venous blood specimen / Unknown Venipuncture / Unknown 08/15/2025 1:24 AM EST 08/15/2025 1:28 AM EST us Fabienne Palm MD LAB BLOOD ORDERABLES Coleen l Result [facility] [address] [place] [address] * (ABNORMAL) Basic metabolic panel (08/15/2025 1:24 AM EST) Glucose, Plasma 255(H) 74 - 99 mg/dL 08/15/2025 1:57 AM EST [facility] BUN, Plasma 35(H) 7 - 21 mg/dL 08/15/2025 1:57 AM EST [facility] Creatinine, Plasma 1.21(H) 0.70 - 1.20 mg/dL 08/15/2025 1:57 AM EST [facility] BUN/Creatinine Ratio 29 08/15/2025 1:57 AM EST [facility] Sodium, Plasma 134(L) 136 - 145 mmol/L 08/15/2025 1:57 AM EST [facility] Potassium, Plasma 4.6 3.6 - 4.9 mmol/L 08/15/2025 1:57 AM EST [facility] Chloride, Plasma 99 97 - 107 mmol/L 08/15/2025 1:57 AM EST [facility] CO2, Plasma 22 22 - 29 mmol/L 08/15/2025 1:57 AM EST [facility] Anion Gap 13 6 - 16 mmol/L 08/15/2025 1:57 AM EST [facility] Total Calcium, Plasma 9.3 8.9 - 10.2 mg/dL 08/15/2025 1:57 AM EST [facility] eGFRcr 69.0 mL/min/1.7 3m*2 08/15/2025 1:57 AM EST [facility] Comment:Reported eGFRcr in m L/min/1.73m2 is based the CKD-EPI 2020 equation that does not use a race coefficient. Blood Venous blood specimen / Unknown Venipuncture / Unknown 08/15/2025 1:24 AM EST 08/15/2025 1:28 AM EST Uche Fonseca MD LAB BLOOD ORDERABLES Final Re sult [facility] [address] [place] [id number] * (ABNORMAL) POCT glucose meter (08/14/2025 7:54 PM EST) POCT Glucose 310(H) 74 - 99 mg/dL 08/14/2025 7:55 PM EST [facility] Comment:Accuracy of a glucos e result [...] for testing. Comment 08/14/2025 7:55 PM EST [facility] Personal Financial Representative ID Willian Hicks 7:55 PM EST [facility] Device ID [id number] 08/14/2025 7:55 PM EST [facility] Specimen Type POC Capillary 08/14/2025 7:55 PM EST [facility] Blood Capillary blood specimen / Unknown 08/14/2025 7:54 PM EST 08/14/2025 7:55 PM EST Uche Fonseca MD LAB POINT OF CARE TE ST DOCKED DEVICE UNSOLICITED RESULTS Final Result Performing Organization Address [facility] Co de Phone Number [facility] [address] [place] [address] * (ABNORMAL) POCT glucose meter (08/14/2025 4:06 [...] for testing. Comment 08/14/2025 4:08 PM EST [facility] Personal Financial Representative ID Joey Rutledge 08/14/2025 4:08 PM EST [facility] Device ID [id number] 08/14/2025 4:08 PM EST [facility] Specimen Type POC Capillary 08/14/2025 4:08 PM EST [facility] Blood Capillary blood specimen / Unknown 08/14/2025 4:06 PM EST 08/14/2025 4:08 PM EST Uche Fonseca MD LAB POINT OF CARE TE ST DOCKED DEVICE UNSOLICITED RESULTS Final Result Performing Organization Address City/[facility]/ZIP Co de Phone Number [facility] [address] [place] [address] * (ABNORMAL) POCT glucose meter (08/14/2025 11:10 [...] 08/14/2025 11:12 AM EST [facility] Personal Financial Representative ID Joey Rutledge 08/14/2025 11:12 AM EST [facility] Device ID [id number] 08/14/2025 11:12 AM EST [facility] Specimen Type POC Capillary 08/14/2025 11:12 AM EST [facility] Blood Capillary blood specimen / Unknown 08/14/2025 11:10 AM EST 08/14/2025 11:12 AM EST us Uche Fonseca MD LAB POINT OF CARE TE ST DOCKED DEVICE UNSOLICITED RESULTS Final Result Performing Organization Address [facility] Co de Phone Number [facility] [address] [place] [address] * (ABNORMAL) POCT glucose meter (08/14/2025 7:13 AM EST) [facility] POCT Glucose 206(H) 74 - 99 mg/dL 08/14/2025 7:15 AM EST [facility] Comment:Accuracy of a glucos e result [...] 08/14/2025 7:15 AM EST [facility] Personal Financial Representative ID Joey Rutledge 08/14/2025 7:15 AM EST [facility] Device ID [id number] 08/14/2025 7:15 AM EST [facility] Specimen Type POC Capillary 08/14/2025 7:15 AM EST [facility] Blood Capillary blood specimen / Unknown 08/14/2025 7:13 AM EST 08/14/2025 7:15 AM EST us Uche Fonseca MD LAB POINT OF CARE TE ST DOCKED DEVICE UNSOLICITED RESULTS Final Result Performing Organization Address City/[facility]/ZIP Co de Phone Number [facility] [address] [place] [address] * (ABNORMAL) Phosphorus, Plasma (08/14/2025 3:18 AM EST) Phosphorus, Plasma 2.4(L) 2.5 - 4.5 mg/dL 08/14/2025 3:53 AM EST [facility] Blood Venous blood specimen / Unknown Venipuncture / Unknown 08/14/2025 3:18 AM EST 08/14/2025 3:23 AM EST us Fabienne Palm MD LAB BLOOD ORDERABLES Coleen l Result [facility] [address] [place] [address] * Magnesium, Plasma (08/14/2025 3:18 AM EST) Magnesium, Plasma 2.0 1.9 - 2.4 mg/dL 08/14/2025 3:53 AM EST [facility] Blood Venous blood specimen / Unknown Venipuncture / Unknown 08/14/2025 3:18 AM EST 08/14/2025 3:23 AM EST us Fabienne Palm MD LAB BLOOD ORDERABLES Coleen l Result [facility] [address] [place] [address] * (ABNORMAL) Basic metabolic panel (08/14/2025 3:18 AM EST) Glucose, Plasma 195(H) 74 - 99 mg/dL 08/14/2025 3:53 AM EST [facility] BUN, Plasma 24(H) 7 - 21 mg/dL 08/14/2025 3:53 AM EST [facility] Creatinine, Plasma 1.15 0.70 - 1.20 mg/dL 08/14/2025 3:53 AM EST [facility] BUN/Creatinine Ratio 21 08/14/2025 3:53 AM EST [facility] Sodium, Plasma 133(L) 136 - 145 mmol/L 08/14/2025 3:53 AM EST [facility] Potassium, Plasma 4.1 3.6 - 4.9 mmol/L 08/14/2025 3:53 AM EST [facility] Chloride, Plasma 99 97 - 107 mmol/L 08/14/2025 3:53 AM EST [facility] CO2, Plasma 23 22 - 29 mmol/L 08/14/2025 3:53 AM EST [facility] Anion Gap 11 6 - 16 mmol/L 08/14/2025 3:53 AM EST [facility] Total Calcium, Plasma 9.8 8.9 - 10.2 mg/dL 08/14/2025 3:53 AM EST [facility] eGFRcr 73.3 mL/min/1.7 3m*2 08/14/2025 3:53 AM EST [facility] Comment:Reported eGFRcr in m L/min/1.73m2 is based the CKD-EPI 2020 equation that does not use a race coefficient. Blood Venous blood specimen / Unknown Venipuncture / Unknown 08/14/2025 3:18 AM EST 08/14/2025 3:23 AM EST Uche Fonseca MD LAB BLOOD ORDERABLES Final Re sult [facility] [address] [place] [address] * (ABNORMAL) POCT glucose meter (08/14/2025 3:09 AM EST) POCT Glucose 215(H) 74 - 99 mg/dL 08/14/2025 3:21 AM EST [facility] Comment:Accuracy of a glucos e result [...] for testing. Comment 08/14/2025 3:21 AM EST [facility] Personal Financial Representative ID Garry Gonzales 08/14/2025 3:21 AM EST [facility] Device ID [id number] 08/14/2025 3:21 AM EST [facility] Specimen Type POC Capillary 08/14/2025 3:21 AM EST [facility] Blood Capillary blood specimen / Unknown 08/14/2025 3:09 AM EST 08/14/2025 3:21 AM EST Uche Fonseca MD LAB POINT OF CARE TE ST DOCKED DEVICE UNSOLICITED RESULTS Final Result Performing Organization Address City/[facility]/ZIP Co de Phone Number [facility] [address] [place] [address] * (ABNORMAL) POCT glucose meter (08/13/2025 8:10 [...] Comment 08/13/2025 8:16 PM EST [facility] Personal Financial Representative ID Garry Gonzales 08/13/2025 8:16 PM EST [facility] Device ID [id number] 08/13/2025 8:16 PM EST [facility] Specimen Type POC Capillary 08/13/2025 8:16 PM EST [facility] Blood Capillary blood specimen / Unknown 08/13/2025 8:10 PM EST 08/13/2025 8:16 PM EST Uche Fonseca MD LAB POINT OF CARE TE ST DOCKED DEVICE UNSOLICITED RESULTS Final Result [facility] [address] [place] [address] * (ABNORMAL) POCT glucose meter (08/13/2025 4:05 [...] 08/13/2025 4:06 PM EST [facility] Personal Financial Representative ID Amisha Lomas 08/13/2025 4:06 PM EST [facility] Device ID [id number] 08/13/2025 4:06 PM EST [facility] Specimen Type POC Capillary 08/13/2025 4:06 PM EST [facility] Blood Capillary blood specimen / Unknown 08/13/2025 4:05 PM EST 08/13/2025 4:06 PM EST Uche Fonseca MD LAB POINT OF CARE TE ST DOCKED DEVICE UNSOLICITED RESULTS Final Result Performing Organization Address City/[facility]/ZIP Co de Phone Number [facility] [address] [place] [address] * (ABNORMAL) POCT glucose meter (08/13/2025 11:50 AM EST) [facility] POCT Glucose 252(H) 74 - 99 mg/dL 08/13/2025 11:52 AM EST [facility] Comment:Accuracy of [...] 08/13/2025 11:52 AM EST [facility] Personal Financial Representative ID Amisha Lomas 08/13/2025 11:52 AM EST [facility] Device ID [id number] 08/13/2025 11:52 AM EST [facility] Specimen Type POC Capillary 08/13/2025 11:52 AM EST [facility] Blood Capillary blood specimen / Unknown 08/13/2025 11:50 AM EST 08/13/2025 11:52 AM EST us Uche Fonseca MD LAB POINT OF CARE TE ST DOCKED DEVICE UNSOLICITED RESULTS Final Result [facility] [address] [place] [address] * Vancomycin, Peak, Plasma Please draw ~2 hours after 0600 dose of vancomycin finishes infusing. Consider obtaining level via peripheral stick. If peripheral stick is not feasible, please ensure that line is flushed well prior to drawing level. Than... (08/13/2025 9:12 AM EST) [facility] Vancomycin, Peak, Plasma 33.3 20.0 - 40.0 ug/mL 08/13/2025 9:44 AM EST [facility] Blood Venous blood specimen / Unknown Venipuncture / Unknown 08/13/2025 9:12 AM EST 08/13/2025 9:16 AM EST Narrative [facility] - 08/13/2025 9:44 AM EST Therapeutic Peak level: 20-40ug/mL Supra-therapeutic Peak level: >40 ug/mL Uche Fonseca MD LAB BLOOD ORDERABLES Final Re sult Performing Organization Address [facility] Co de Phone Number [facility] [address] [place] [address] * (ABNORMAL) POCT glucose meter (08/13/2025 7:29 AM EST) [facility] POCT Glucose 218(H) 74 - 99 mg/dL 08/13/2025 7:30 AM EST [facility] Comment:Accuracy of a [...] Comment 08/13/2025 7:30 AM EST [facility] Personal Financial Representative ID Amisha Lomas 08/13/2025 7:30 AM EST [facility] Device ID [id number] 08/13/2025 7:30 AM EST [facility] Specimen Type POC Capillary 08/13/2025 7:30 AM EST [facility] Blood Capillary blood specimen / Unknown 08/13/2025 7:29 AM EST 08/13/2025 7:30 AM EST us Uche Fonseca MD LAB POINT OF CARE TE ST DOCKED DEVICE UNSOLICITED RESULTS Final Result Performing Organization Address City/[facility]/ZIP Co de Phone Number [facility] [address] [place] [address] * Lavender Top (08/13/2025 5:39 AM EST) Extra Hold for add-ons 08/13/2025 8:01 AM EST [facility] Comment:Auto resulted. Blood Venous blood specimen / Unknown 08/13/2025 5:39 AM EST 08/13/2025 5:44 AM EST us Uche Fonseca MD LAB BLOOD ORDERABLES Final Re sult Performing Organization Address [facility] Co de Phone Number [facility] [address] [place] [address] * (ABNORMAL) Phosphorus, Plasma (08/13/2025 5:39 AM EST) Phosphorus, Plasma 2.0(L) 2.5 - 4.5 mg/dL 08/13/2025 6:15 AM EST [facility] Blood Venous blood specimen / Unknown Venipuncture / Unknown 08/13/2025 5:39 AM EST 08/13/2025 5:46 AM EST us Fabienne Palm MD LAB BLOOD ORDERABLES Coleen l Result [facility] [address] [place] [address] * Magnesium, Plasma (08/13/2025 5:39 AM EST) Magnesium, Plasma 2.1 1.9 - 2.4 mg/dL 08/13/2025 6:15 AM EST [facility] Blood Venous blood specimen / Unknown Venipuncture / Unknown 08/13/2025 5:39 AM EST 08/13/2025 5:46 AM EST us Fabienne Palm MD LAB BLOOD ORDERABLES Coleen l Result [facility] [address] [place] [address] * Vancomycin, Trough, Plasma Please draw ~30 minutes prior to dose due at 0600 on 08/13. Please do NOT hold dose awaiting level to return. Consider obtaining level via peripheral stick. If peripheral stick is not feasible, please ensure that line i... (08/13/2025 5:39 AM EST) Pathologist [facility] [place] Vancomycin, Trough, Plasma 13.7 10.0 - 20.0 ug/mL 08/13/2025 6:15 AM EST [facility] Blood Venous blood specimen / Unknown Venipuncture / Unknown 08/13/2025 5:39 AM EST 08/13/2025 5:46 AM EST Narrative [facility] - 08/13/2025 6:15 AM EST Therapeutic Trough level: 10-20ug/mL Supra-therapeutic Trough level: >20 ug/mL Uche Fonseca MD LAB BLOOD ORDERABLES Final Re sult Performing Organization Address City/[facility]/ZIP Co de Phone Number [facility] [address] [place] [address] * (ABNORMAL) Basic metabolic panel (08/13/2025 5:39 AM EST) Pathologist [facility], [place] Glucose, Plasma 188(H) 74 - 99 mg/dL 08/13/2025 6:15 AM EST [facility] BUN, Plasma 22(H) 7 - 21 mg/dL 08/13/2025 6:15 AM EST [facility] Creatinine, Plasma 1.08 0.70 - 1.20 mg/dL 08/13/2025 6:15 AM EST [facility] BUN/Creatinine Ratio 20 08/13/2025 6:15 AM EST [facility] Sodium, Plasma 136 136 - 145 mmol/L 08/13/2025 6:15 AM EST [facility] Potassium, Plasma 4.7 3.6 - 4.9 mmol/L 08/13/2025 6:15 AM EST [facility] Chloride, Plasma 102 97 - 107 mmol/L 08/13/2025 6:15 AM EST [facility] CO2, Plasma 24 22 - 29 mmol/L 08/13/2025 6:15 AM EST [facility] Anion Gap 10 6 - 16 mmol/L 08/13/2025 6:15 AM EST [facility] Total Calcium, Plasma 9.7 8.9 - 10.2 mg/dL 08/13/2025 6:15 AM EST [facility] eGFRcr 79.1 mL/min/1.7 3m*2 08/13/2025 6:15 AM EST [facility] Comment:Reported eGFRcr in m L/min/1.73m2 is based the CKD-EPI 2020 equation that does not use a race coefficient. Blood Venous blood specimen / Unknown Venipuncture / Unknown 08/13/2025 5:39 AM EST 08/13/2025 5:46 AM EST Uche Fonseca MD LAB BLOOD ORDERABLES Final Re sult [facility] [address] [place] [address] * (ABNORMAL) POCT glucose meter (08/12/2025 7:44 [...] Comment 08/12/2025 7:46 PM EST [facility] Personal Financial Representative ID Ana Ramirez 025 7:46 PM EST [facility] Device ID [id number] 08/12/2025 7:46 PM EST [facility] Specimen Type POC Capillary 08/12/2025 7:46 PM EST [facility] Blood Capillary blood specimen / Unknown 08/12/2025 7:44 PM EST 08/12/2025 7:46 PM EST Uche Fonseca MD LAB POINT OF CARE TE ST DOCKED DEVICE UNSOLICITED RESULTS Final Result Performing Organization Address City/[facility] Co de Phone Number [facility] [address] [place] [address] * (ABNORMAL) POCT glucose meter (08/12/2025 4:06 [...] for testing. Comment 08/12/2025 4:07 PM EST [facility] Personal Financial Representative ID Solo Boyd 08/12/2025 4:07 PM EST [facility] Device ID [id number] 08/12/2025 4:07 PM EST [facility] Specimen Type POC Capillary 08/12/2025 4:07 PM EST [facility] Blood Capillary blood specimen / Unknown 08/12/2025 4:06 PM EST 08/12/2025 4:07 PM EST Uche Fonseca MD LAB POINT OF CARE TE ST DOCKED DEVICE UNSOLICITED RESULTS Final Result Performing Organization Address City/[facility] Co de Phone Number [facility] [address] [place] [address] * (ABNORMAL) POCT glucose meter (08/12/2025 11:02 [...] 08/12/2025 11:03 AM EST [facility] Personal Financial Representative ID Solo Boyd 08/12/2025 11:03 AM EST [facility] Device ID [id number] 08/12/2025 11:03 AM EST [facility] Specimen Type POC Capillary 08/12/2025 11:03 AM EST [facility] Blood Capillary blood specimen / Unknown 08/12/2025 11:02 AM EST 08/12/2025 11:03 AM EST Uche Fonseca MD LAB POINT OF CARE TE ST DOCKED DEVICE UNSOLICITED RESULTS Final Result Performing Organization Address City/[facility] Co de Phone Number [facility] [address] [place] [address] * (ABNORMAL) POCT glucose meter (08/12/2025 7:14 AM EST) POCT Glucose 185(H) 74 - 99 mg/dL 08/12/2025 7:16 AM EST [facility] Comment:Accuracy of a glucos e result [...] for testing. Comment 08/12/2025 7:16 AM EST [facility] Personal Financial Representative ID Solo Boyd 08/12/2025 7:16 AM EST [facility] Device ID [id number] 08/12/2025 7:16 AM EST [facility] Specimen Type POC Capillary 08/12/2025 7:16 AM EST [facility] Blood Capillary blood specimen / Unknown 08/12/2025 7:14 AM EST 08/12/2025 7:16 AM EST Uche Fonseca MD LAB POINT OF CARE TE ST DOCKED DEVICE UNSOLICITED RESULTS Final Result Performing Organization Address City/[facility]/ZIP Co de Phone Number [facility] [address] [place] [address] * Phosphorus, Plasma (08/12/2025 3:09 AM EST) Phosphorus, Plasma 2.7 2.5 - 4.5 mg/dL 08/12/2025 3:45 AM EST [facility] Blood Venous blood specimen / Unknown Venipuncture / Unknown 08/12/2025 3:09 AM EST 08/12/2025 3:15 AM EST us Fabienne Palm MD LAB BLOOD ORDERABLES Coleen l Result Performing Organization Address City/[facility]/ZIP Co de Phone Number [facility] [address] [place] [address] * Magnesium, Plasma (08/12/2025 3:09 AM EST) Magnesium, Plasma 2.0 1.9 - 2.4 mg/dL 08/12/2025 3:45 AM EST [facility] Blood Venous blood specimen / Unknown Venipuncture / Unknown 08/12/2025 3:09 AM EST 08/12/2025 3:15 AM EST us Fabienne Palm MD LAB BLOOD ORDERABLES Coleen l Result Performing Organization Address City/[facility] Co de Phone Number [facility] [address] [place] [address] * (ABNORMAL) Comprehensive metabolic panel (08/12/2025 3:09 AM EST) Glucose, Plasma 231(H) 74 - 99 mg/dL 08/12/2025 3:45 AM EST [facility] BUN, Plasma 24(H) 7 - 21 mg/dL 08/12/2025 3:45 AM EST [facility] Creatinine, Plasma 1.21(H) 0.70 - 1.20 mg/dL 08/12/2025 3:45 AM EST [facility] BUN/Creatinine Ratio 20 08/12/2025 3:45 AM EST [facility] Sodium, Plasma 135(L) 136 - 145 mmol/L 08/12/2025 3:45 AM EST [facility] Potassium, Plasma 4.3 3.6 - 4.9 mmol/L 08/12/2025 3:45 AM EST [facility] Chloride, Plasma 102 97 - 107 mmol/L 08/12/2025 3:45 AM EST [facility] CO2, Plasma 22 22 - 29 mmol/L 08/12/2025 3:45 AM EST [facility] Anion Gap 11 6 - 16 mmol/L 08/12/2025 3:45 AM EST [facility] Total Calcium, Plasma 9.1 8.9 - 10.2 mg/dL 08/12/2025 3:45 AM EST [facility] Total Protein 6.1(L) 6.3 - 7.9 g/dL 08/12/2025 3:45 AM EST [facility] Albumin, Plasma 3.1(L) 3.5 - 5.2 g/dL 08/12/2025 3:45 AM EST [facility] AST, Plasma 17 10 - 50 U/L 08/12/2025 3:45 AM EST [facility] ALT, Plasma 28 10 - 50 U/L 08/12/2025 3:45 AM EST [facility] Alkaline Phosphatase, Plasma 66 40 - 115 U/L 08/12/2025 3:45 AM EST [facility] Total Bilirubin, Plasma 0.3 0.2 - 1.1 mg/dL 08/12/2025 3:45 AM EST [facility] eGFRcr 69.0 mL/min/1.7 3m*2 08/12/2025 3:45 AM EST [facility] Comment:Reported eGFRcr in m L/min/1.73m2 is based the CKD-EPI 2020 equation that does not use a race coefficient. Blood Venous blood specimen / Unknown Venipuncture / Unknown 08/12/2025 3:09 AM EST 08/12/2025 3:15 AM EST us Mery TEJEDA LAB BLOOD ORDERABLES F inal Result [facility] [address] [place] [address] * (ABNORMAL) CBC and differential (08/12/2025 3:09 AM EST) WBC Count 6.41 3.70 - 10.30 10*3/uL LAB HEMATOLOGY METHOD 08/12/2025 3:36 AM EST [facility] RBC Count 4.48(L) 4.60 - 6.10 10*6/uL LAB HEMATOLOGY METHOD 08/12/2025 3:36 AM EST [facility] HGB 13.1(L) 13.7 - 17.5 g/dL LAB HEMATOLOGY METHOD 08/12/2025 3:36 AM EST [facility] HCT 38.6(L) 40.0 - 51.0 % LAB HEMATOLOGY METHOD 08/12/2025 3:36 AM EST [facility] Platelet Count 171 155 - 369 10*3/uL LAB HEMATOLOGY METHOD 08/12/2025 3:36 AM EST [facility] MCV 86 79 - 98 fL LAB HEMATOLOGY METHOD 08/12/2025 3:36 AM [facility] MCH 29.2 26.0 - 32.0 pg LAB HEMATOLOGY METHOD 08/12/2025 3:36 AM EST [facility] MCHC 33.9 30.7 - 35.5 g/dL LAB HEMATOLOGY METHOD 08/12/2025 3:36 AM [facility] RDW 11.5 11.5 - 14.5 % LAB HEMATOLOGY METHOD 08/12/2025 3:36 AM [facility] MPV 11.9 8.8 - 12.5 fL LAB HEMATOLOGY METHOD 08/12/2025 3:36 AM [facility] nRBC 0.0 <=0.0 per 100 WBCs LAB HEMATOLOGY METHOD 08/12/2025 3:36 AM EST [facility] Differential Type Automated LAB HEMATOLOGY METHOD 08/12/2025 3:36 AM [facility] Neutrophils % 62 % LAB HEMATOLOGY METHOD 08/12/2025 3:36 AM EST [facility] Lymphocytes % 21 % LAB HEMATOLOGY METHOD 08/12/2025 3:36 AM EST [facility] Monocytes % 13 % LAB HEMATOLOGY METHOD 08/12/2025 3:36 AM [facility] Eosinophils % 3 % LAB HEMATOLOGY METHOD 08/12/2025 3:36 AM EST [facility] Basophils % 1 % LAB HEMATOLOGY METHOD 08/12/2025 3:36 AM EST [facility] Immature Granulocytes % 0 % LAB HEMATOLOGY METHOD 08/12/2025 3:36 AM EST [facility] Neutrophils Absolute 3.97 1.60 - 6.10 10*3/uL LAB HEMATOLOGY METHOD 08/12/2025 3:36 AM EST [facility] Lymphocytes Absolute 1.33 1.20 - 3.90 10*3/uL LAB HEMATOLOGY METHOD 08/12/2025 3:36 AM EST [facility] Monocytes Absolute 0.83 0.30 - 0.90 10*3/uL LAB HEMATOLOGY METHOD 08/12/2025 3:36 AM EST [facility] Eosinophils Absolute 0.21 0.00 - 0.50 10*3/uL LAB HEMATOLOGY METHOD 08/12/2025 3:36 AM EST [facility] Basophils Absolute 0.05 0.00 - 0.10 10*3/uL LAB HEMATOLOGY METHOD 08/12/2025 3:36 AM EST [facility] Immature Granulocytes Absolute 0.02 0.00 - 0.06 10*3/uL LAB HEMATOLOGY METHOD 08/12/2025 3:36 AM EST [facility] Blood Venous blood specimen / Unknown Venipuncture / Unknown 08/12/2025 3:09 AM EST 08/12/2025 3:15 AM EST Narrative [facility] - 08/12/2025 3:36 AM EST Therapeutic decision making should be based on absolute values, rather than percentages. Mery TEJEDA LAB BLOOD ORDERABLES F inal Result [facility] [address] [place] [address] * (ABNORMAL) POCT glucose meter (08/11/2025 9:41 PM EST) POCT Glucose 230(H) 74 - 99 mg/dL 08/11/2025 9:43 PM EST [facility] Comment:Accuracy of a glucos e result [...] for testing. Comment 08/11/2025 9:43 PM EST [facility] Personal Financial Representative ID Coreen Buckley 08/11/2025 9:43 PM EST [facility] Device ID [id number] 08/11/2025 9:43 PM EST [facility] Specimen Type POC Capillary 08/11/2025 9:43 PM EST [facility] Blood Capillary blood specimen / Unknown 08/11/2025 9:41 PM EST 08/11/2025 9:43 PM EST Uche Fonseca MD LAB POINT OF CARE TE ST DOCKED DEVICE UNSOLICITED RESULTS Final Result Performing Organization Address City/[facility]/ZIP Co de Phone Number [facility] [address] [place] [address] * (ABNORMAL) POCT glucose meter (08/11/2025 7:37 PM EST) [facility] POCT Glucose 240(H) 74 - 99 mg/dL [...] Comment 08/11/2025 7:38 PM EST [facility] Personal Financial Representative ID Coreen Buckley 08/11/2025 7:38 PM EST [facility] Device ID [id number] 08/11/2025 7:38 PM EST [facility] Specimen Type POC Capillary 08/11/2025 7:38 PM EST [facility] Blood Capillary blood specimen / Unknown 08/11/2025 7:37 PM EST 08/11/2025 7:38 PM EST Uche Fonseca MD LAB POINT OF CARE TE ST DOCKED DEVICE UNSOLICITED RESULTS Final Result Performing Organization Address City/[facility]/ZIP Co de Phone Number [facility] [address] [place] [address] * (ABNORMAL) POCT glucose meter (08/11/2025 4:03 [...] Comment 08/11/2025 4:05 PM EST [facility] Personal Financial Representative ID Joey Rutledge 08/11/2025 4:05 PM EST [facility] Device ID [id number] 08/11/2025 4:05 PM EST [facility] Specimen Type POC Capillary 08/11/2025 4:05 PM EST [facility] Blood Capillary blood specimen / Unknown 08/11/2025 4:03 PM EST 08/11/2025 4:05 PM EST Uche Fonseca MD LAB POINT OF CARE TE ST DOCKED DEVICE UNSOLICITED RESULTS Final Result [facility] [address] [place] [address] * [place] Less than 1 Hour Intraoperative [...] for testing. Comment 08/11/2025 1:19 PM EST [facility] Personal Financial Representative ID Maritza Dominguez 08/11/2025 1:19 PM EST [facility] Device ID [id number] 08/11/2025 1:19 PM EST [facility] Specimen Type POC Capillary 08/11/2025 1:19 PM EST [facility] Blood Capillary blood specimen / Unknown 08/11/2025 1:17 PM EST 08/11/2025 1:19 PM EST Uche Fonseca MD LAB POINT OF CARE TE ST DOCKED DEVICE UNSOLICITED RESULTS Final Result Performing Organization Address [facility] Co de Phone Number [facility] [address] [place] [address] * (ABNORMAL) Bone Culture and Gram Stain (08/11/2025 1:02 PM EST) Culture Light Growth 08/13/2025 1:45 PM EST [facility] Culture Staphylococcus aureus(A) 08/13/2025 1:45 PM EST [facility] Comment: For susceptibility results refer to: - [facility]-[id number] The organism value for this result has been updated. These results have been appended to the previously preliminary verified report. Gram Stain Result No polymorphonuclear leukocytes seen 08/13/2025 1:45 PM EST [facility] Gram Stain Result No organisms seen 08/13/2025 1:45 PM EST [facility] Bone Structure of toe of left foot / Unknown 08/11/2025 1:02 PM EST 08/11/2025 1:38 PM EST Comment:Pre-op diagnosis: Cellulitis and abscess of toe of left foot [L03.032, L02.612] Andie Moyer MD LAB MICROBIOLOGY - GENERA L ORDERABLES Final Result Performing Organization Address City/[facility]/ZIP Co de Phone Number [facility] [address] [place] [address] * Anaerobic Culture (08/11/2025 1:02 PM EST) Culture No anaerobes isolated 08/15/2025 11:08 AM EST [facility] Bone Structure of toe of left foot / Unknown 08/11/2025 1:02 PM EST 08/11/2025 1:38 PM EST Comment:Pre-op diagnosis: Cellulitis and abscess of toe of left foot [L03.032, L02.612] Andie Moyer MD LAB MICROBIOLOGY - GENERA L ORDERABLES Final Result [facility] [address] [place] [address] * (ABNORMAL) Bone Culture and Gram Stain (08/11/2025 1:00 PM EST) Culture Moderate Growth 12:51 PM EST [facility] Culture Staphylococcus aureus(A) TOMMIE 08/14/2025 12:51 PM EST [facility] Comment:The organism value f or this result has been updated. These results have been appended to the previously preliminary verified report. Gram Stain Result Few Polymorphonuclear leukocytes(A) 08/14/2025 12:51 PM EST [facility] Gram Stain Result Few Gram positive cocci in pairs(A) 08/14/2025 12:51 PM EST [facility] Bone Structure of toe of left [...] Final Result Performing Organization Address [facility] Co de Phone Number [facility] [address] [place] [address] * Anaerobic Culture (08/11/2025 1:00 PM EST) Culture Mixed aerobic and anaerobic carmine 08/15/2025 11:08 AM EST [facility] Bone Structure of toe of left foot / Unknown 08/11/2025 1:00 PM EST 08/11/2025 1:39 PM EST Comment:Pre-op diagnosis: Cellulitis and abscess of toe of left foot [L03.032, L02.612] Andie Moyer MD LAB MICROBIOLOGY - GENERA L ORDERABLES Final Result Performing Organization Address [facility] Co de Phone Number [facility] [address] [place] [address] * Surgical Pathology Exam (08/11/2025 12:57 PM EST) Case Report Surgical Pathology Case: [id number] Authorizing Provider: Andie Moyer MD Collected: 08/11/2025 1257 Ordering Location: [facility] A OPERATING ROOM Received: 08/11/2025 1317 Pathologist: Diana King MD Specimen: Toe, Left, 4th Left Toe 08/16/2025 12:51 PM EST [facility] Final Diagnosis A. 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 - NO ACUTE OSTEOMYELITIS IDENTIFIED 08/16/2025 12:51 PM EST [facility] at 1251 EST Clinical Information Cellulitis and abscess of toe of left foot [L03.032, L02.612] 08/16/2025 12:51 PM EST [facility] Gross Description A. 4TH LEFT TOE [...] resection margin is a roughened cut surface. [employer] sections are submitted in cassettes A1-A3 as follows: A1: Skin resection margin. A2: Roughened bone resection margin, submitted for decal. A3: Full-thickness cross section of ulceration with underlying bone, submitted for decal. Amisha Awad Jose Alberto 08/16/2025 12:51 PM EST [facility] Bone Structure of toe of left foot / Unknown 08/11/2025 12:57 PM EST 08/11/2025 1:17 PM EST Comment:Pre-op diagnosis: Cellulitis and abscess of toe of left foot [L03.032, L02.612] Andie Moyer MD LAB PATHOLOGY ORDERABLES Final Result [facility] [address] [place] [address] * (ABNORMAL) POCT glucose meter (08/11/2025 11:42 AM EST) POCT Glucose 177(H) 74 - 99 mg/dL 08/11/2025 11:44 AM EST [facility] Comment:Accuracy of a glucos e result [...] for testing. Comment 08/11/2025 11:44 AM EST [facility] Personal Financial Representative ID Nidia Hernandez 025 11:44 AM EST [facility] Device ID [id number] 08/11/2025 11:44 AM EST [facility] Specimen Type POC Capillary 08/11/2025 11:44 AM EST [facility] Blood Capillary blood specimen / Unknown 08/11/2025 11:42 AM EST 08/11/2025 11:44 AM EST Uche Fonseca MD LAB POINT OF CARE TE ST DOCKED DEVICE UNSOLICITED RESULTS Final Result Performing Organization Address [facility] de Phone Number [facility] [address] [place] [address] * (ABNORMAL) POCT glucose meter (08/11/2025 7:39 AM EST) Pathologist [facility] [place] POCT Glucose 226(H) 74 - 99 mg/dL [...] Comment 08/11/2025 7:41 AM EST [facility] Personal Financial Representative ID Joey Rutledge 08/11/2025 7:41 AM EST [facility] Device ID [id number] 08/11/2025 7:41 AM EST [facility] Specimen Type POC Capillary 08/11/2025 7:41 AM EST [facility] Blood Capillary blood specimen / Unknown 08/11/2025 7:39 AM EST 08/11/2025 7:41 AM EST Uche Fonseca MD LAB POINT OF CARE TE ST DOCKED DEVICE UNSOLICITED RESULTS Final Result Performing Organization Address [facility] Co de Phone Number [facility] [address] [place] [address] * (ABNORMAL) Sedimentation Rate, Automated (08/11/2025 3:30 AM EST) Pathologist [facility] [place] Sedimentation Rate 58(H) <20 mm/hr 2024 4:54 AM EST [facility] Blood Venous blood specimen / Unknown Venipuncture / Unknown 08/11/2025 3:30 AM EST 08/11/2025 4:19 AM EST Uche Fonseca MD LAB BLOOD ORDERABLES Final Re sult Performing Organization Address City/[facility]/ZIP Co de Phone Number [facility] [address] [place] [address] * Phosphorus, Plasma (08/11/2025 3:30 AM EST) Phosphorus, Plasma 2.7 2.5 - 4.5 mg/dL 08/11/2025 4:58 AM EST [facility] Blood Venous blood specimen / Unknown Venipuncture / Unknown 08/11/2025 3:30 AM EST 08/11/2025 4:17 AM EST us Fabeinne Palm MD LAB BLOOD ORDERABLES Coleen l Result Performing Organization Address [facility] Co de Phone Number [facility] [address] [place] [address] * (ABNORMAL) Magnesium, Plasma (08/11/2025 3:30 AM EST) Magnesium, Plasma 1.8(L) 1.9 - 2.4 mg/dL 08/11/2025 4:58 AM EST [facility] Blood Venous blood specimen / Unknown Venipuncture / Unknown 08/11/2025 3:30 AM EST 08/11/2025 4:17 AM EST us Fabienne Palm MD LAB BLOOD ORDERABLES Coleen l Result Performing Organization Address City/[facility]/ZIP Co de Phone Number [facility] [address] [place] [address] * CBC and differential (08/11/2025 3:30 AM EST) WBC Count 8.04 3.70 - 10.30 10*3/uL LAB HEMATOLOGY METHOD 08/11/2025 4:27 AM EST [facility] RBC Count 4.75 4.60 - 6.10 10*6/uL LAB HEMATOLOGY METHOD 08/11/2025 4:27 AM EST [facility] HGB 14.0 13.7 - 17.5 g/dL LAB HEMATOLOGY METHOD 08/11/2025 4:27 AM [facility] HCT 40.7 40.0 - 51.0 % LAB HEMATOLOGY METHOD 08/11/2025 4:27 AM EST [facility] Platelet Count 176 155 - 369 10*3/uL LAB HEMATOLOGY METHOD 08/11/2025 4:27 AM [facility] MCV 86 79 - 98 fL LAB HEMATOLOGY METHOD 08/11/2025 4:27 AM EST [facility] MCH 29.5 26.0 - 32.0 pg LAB HEMATOLOGY METHOD 08/11/2025 4:27 AM EST [facility] MCHC 34.4 30.7 - 35.5 g/dL LAB HEMATOLOGY METHOD 08/11/2025 4:27 AM [facility] RDW 11.6 11.5 - 14.5 % LAB HEMATOLOGY METHOD 08/11/2025 4:27 AM [facility] MPV 12.5 8.8 - 12.5 fL LAB HEMATOLOGY METHOD 08/11/2025 4:27 AM [facility] nRBC 0.0 <=0.0 per 100 WBCs LAB HEMATOLOGY METHOD 08/11/2025 4:27 AM [facility] Differential Type Automated LAB HEMATOLOGY METHOD 08/11/2025 4:27 AM [facility] Neutrophils % 69 % LAB HEMATOLOGY METHOD 08/11/2025 4:27 AM [facility] Lymphocytes % 15 % LAB HEMATOLOGY METHOD 08/11/2025 4:27 AM [facility] Monocytes % 10 % LAB HEMATOLOGY METHOD 08/11/2025 4:27 AM [facility] Eosinophils % 4 % LAB HEMATOLOGY METHOD 08/11/2025 4:27 AM [facility] Basophils % 1 % LAB HEMATOLOGY METHOD 08/11/2025 4:27 AM [facility] Immature Granulocytes % 1 % LAB HEMATOLOGY METHOD 08/11/2025 4:27 AM [facility] Neutrophils Absolute 5.60 1.60 - 6.10 10*3/uL LAB HEMATOLOGY METHOD 08/11/2025 4:27 AM [facility] Lymphocytes Absolute 1.22 1.20 - 3.90 10*3/uL LAB HEMATOLOGY METHOD 08/11/2025 4:27 AM EST [facility] Monocytes Absolute 0.84 0.30 - 0.90 10*3/uL LAB HEMATOLOGY METHOD 08/11/2025 4:27 AM EST [facility] Eosinophils Absolute 0.29 0.00 - 0.50 10*3/uL LAB HEMATOLOGY METHOD 08/11/2025 4:27 AM EST [facility] Basophils Absolute 0.05 0.00 - 0.10 10*3/uL LAB HEMATOLOGY METHOD 08/11/2025 4:27 AM EST [facility] Immature Granulocytes Absolute 0.04 0.00 - 0.06 10*3/uL LAB HEMATOLOGY METHOD 08/11/2025 4:27 AM EST [facility] Blood Venous blood specimen / Unknown Venipuncture / Unknown 08/11/2025 3:30 AM EST 08/11/2025 4:19 AM EST Narrative [facility] - 08/11/2025 4:27 AM EST Therapeutic decision making should be based on absolute values, rather than percentages. Uche Fonseca MD LAB BLOOD ORDERABLES Final Re sult [facility] [address] [place] [address] * (ABNORMAL) Basic metabolic panel (08/11/2025 3:30 AM EST) Glucose, Plasma 205(H) 74 - 99 mg/dL 08/11/2025 4:58 AM EST [facility] BUN, Plasma 19 7 - 21 mg/dL 08/11/2025 4:58 AM EST [facility] Creatinine, Plasma 1.03 0.70 - 1.20 mg/dL 08/11/2025 4:58 AM EST [facility] BUN/Creatinine Ratio 18 08/11/2025 4:58 AM EST [facility] Sodium, Plasma 134(L) 136 - 145 mmol/L 08/11/2025 4:58 AM EST [facility] Potassium, Plasma 4.1 3.6 - 4.9 mmol/L 08/11/2025 4:58 AM EST [facility] Chloride, Plasma 100 97 - 107 mmol/L 08/11/2025 4:58 AM EST [facility] CO2, Plasma 22 22 - 29 mmol/L 08/11/2025 4:58 AM EST [facility] Anion Gap 12 6 - 16 mmol/L 08/11/2025 4:58 AM EST [facility] Total Calcium, Plasma 9.5 8.9 - 10.2 mg/dL 08/11/2025 4:58 AM EST [facility] eGFRcr 83.7 mL/min/1.7 3m*2 08/11/2025 4:58 AM EST [facility] Comment:Reported eGFRcr in m L/min/1.73m2 is based the CKD-EPI 2020 equation that does not use a race coefficient. Blood Venous blood specimen / Unknown Venipuncture / Unknown 08/11/2025 3:30 AM EST 08/11/2025 4:17 AM EST Uche Fonseca MD LAB BLOOD ORDERABLES Final Re sult [facility] [address] [place] [address] * (ABNORMAL) POCT glucose meter (08/10/2025 7:27 PM EST) POCT Glucose 215(H) 74 - 99 mg/dL 08/10/2025 7:33 PM EST [facility] Comment:Accuracy of a glucos e result [...] for testing. Comment 08/10/2025 7:33 PM EST [facility] Personal Financial Representative ID [employer] 08/10/2025 7:33 PM EST [facility] Device ID [id number] 08/10/2025 7:33 PM EST [facility] Specimen Type POC Capillary 08/10/2025 7:33 PM EST [facility] Blood Capillary blood specimen / Unknown 08/10/2025 7:27 PM EST 08/10/2025 7:33 PM EST Uche Fonseca MD LAB POINT OF CARE TE ST DOCKED DEVICE UNSOLICITED RESULTS Final Result Performing Organization Address City/[facility]/ZIP Co de Phone Number [facility] [address] [place] [address] * (ABNORMAL) POCT glucose meter (08/10/2025 4:15 PM EST) POCT Glucose 237(H) 74 - 99 mg/dL [...] for testing. Comment 08/10/2025 4:18 PM EST [facility] Personal Financial Representative ID Chapin Steve 08/10/2025 4:18 PM EST [facility] Device ID [id number] 08/10/2025 4:18 PM EST [facility] Specimen Type POC Capillary 08/10/2025 4:18 PM EST [facility] Blood Capillary blood specimen / Unknown 08/10/2025 4:15 PM EST 08/10/2025 4:18 PM EST Uche Fonseca MD LAB POINT OF CARE TE ST DOCKED DEVICE UNSOLICITED RESULTS Final Result Performing Organization Address [facility] de Phone Number [facility] [address] [place] [address] * (ABNORMAL) POCT glucose meter (08/10/2025 11:13 [...] 08/10/2025 11:18 AM EST [facility] Personal Financial Representative ID Alba Doan 08/10/2025 11:18 AM EST [facility] Device ID [id number] 08/10/2025 11:18 AM EST [facility] Specimen Type POC Capillary 08/10/2025 11:18 AM EST [facility] Blood Capillary blood specimen / Unknown 08/10/2025 11:13 AM EST 08/10/2025 11:18 AM EST Uche Fonseca MD LAB POINT OF CARE TE ST DOCKED DEVICE UNSOLICITED RESULTS Final Result Performing Organization Address City/[facility] Co de Phone Number [facility] [address] [place] [address] * (ABNORMAL) POCT glucose meter (08/10/2025 7:34 AM EST) [facility] POCT Glucose 176(H) 74 - 99 [...] 08/10/2025 7:39 AM EST [facility] Personal Financial Representative ID Alba Doan 08/10/2025 7:39 AM EST [facility] Device ID [id number] 08/10/2025 7:39 AM EST [facility] Specimen Type POC Capillary 08/10/2025 7:39 AM EST [facility] Blood Capillary blood specimen / Unknown 08/10/2025 7:34 AM EST 08/10/2025 7:39 AM EST Uche Fonseca MD LAB POINT OF CARE TE ST DOCKED DEVICE UNSOLICITED RESULTS Final Result Performing Organization Address City/[facility] Co de Phone Number [facility] [address] [place] [address] * (ABNORMAL) C-reactive protein (08/10/2025 3:22 AM EST) [facility] CRP, Plasma 52.4(H) <=8.0 mg/L 08/11/2025 3:21 AM EST [facility] Blood Venous blood specimen / Unknown Venipuncture / Unknown 08/10/2025 3:22 AM EST 08/10/2025 3:29 AM EST Narrative [facility] - 08/11/2025 3:21 AM EST This CRP test is appropriate for assessment of infection, systemic inflammation and/or tissue injury. To assess cardiovascular disease risk order high sensitivity CRP (CRPH). Uche Fonseca MD LAB BLOOD ORDERABLES Final Re sult Performing Organization Address [facility]/ZIP Co de Phone Number [facility] [address] [place] [address] * Vitamin D 25 Hydroxy (08/10/2025 3:22 AM EST) Vitamin D 25 Hydroxy 78.2 20.0 - 80.0 ng/mL 08/10/2025 8:08 AM EST [facility] Blood Venous blood specimen / Unknown Venipuncture / Unknown 08/10/2025 3:22 AM EST 08/10/2025 3:29 AM EST Narrative [facility] - 08/10/2025 8:08 AM EST Testing performed on [employer], standardized against NIST SRM 2972. When testing [...] to 80 ng/mL Possible toxicity: >100 ng/mL Fabienne Palm MD LAB BLOOD ORDERABLES Coleen l Result Performing Organization Address [facility]/ZIP Co de Phone Number [facility] [address] [place] [address] * Phosphorus, Plasma (08/10/2025 3:22 AM EST) Phosphorus, Plasma 3.4 2.5 - 4.5 mg/dL 08/10/2025 3:55 AM EST [facility] Blood Venous blood specimen / Unknown Venipuncture / Unknown 08/10/2025 3:22 AM EST 08/10/2025 3:29 AM EST us Fabienne Palm MD LAB BLOOD ORDERABLES Coleen l Result Performing Organization Address City/[facility]/ZIP Co de Phone Number [facility] [address] [place] [address] * Magnesium, Plasma (08/10/2025 3:22 AM EST) Pathologist [facility] [place] Magnesium, Plasma 1.9 1.9 - 2.4 mg/dL 08/10/2025 3:55 AM EST [facility] Blood Venous blood specimen / Unknown Venipuncture / Unknown 08/10/2025 3:22 AM EST 08/10/2025 3:29 AM EST us Fabienne Palm MD LAB BLOOD ORDERABLES Coleen l Result Performing Organization Address City/[facility] [place] [address] * (ABNORMAL) POCT glucose meter (08/10/2025 3:13 AM EST) [facility] POCT Glucose 173(H) 74 - 99 mg/dL 08/10/2025 3:15 AM EST [facility] Comment:Accuracy of a [...] 08/10/2025 3:15 AM EST [facility] Personal Financial Representative ID Manasgiselaraul Yobany 08/10/2025 3:15 AM EST [facility] Device ID [id number] 08/10/2025 3:15 AM EST [facility] Specimen Type POC Capillary 08/10/2025 3:15 AM EST [facility] Blood Capillary blood specimen / Unknown 08/10/2025 3:13 AM EST 08/10/2025 3:15 AM EST us Fabienne Palm MD LAB POINT OF CARE TEST DOCKED DEVICE UNSOLICITED RESULTS Final Result Performing Organization Address [facility] de Phone Number [facility] [address] [place] [address] * (ABNORMAL) POCT glucose meter (08/09/2025 9:11 PM EST) [facility] POCT Glucose 251(H) 74 - 99 [...] for testing. Comment 08/09/2025 9:12 PM EST [facility] Personal Financial Representative ID Yobany Carr 08/09/2025 9:12 PM EST [facility] Device ID [id number] 08/09/2025 9:12 PM EST [facility] Specimen Type POC Capillary 08/09/2025 9:12 PM EST [facility] Blood Capillary blood specimen / Unknown 08/09/2025 9:11 PM EST 08/09/2025 9:12 PM EST us Fabienne Palm MD LAB POINT OF CARE TEST DOCKED DEVICE UNSOLICITED RESULTS Final Result Performing Organization Address City/[facility] de Phone Number [facility] [address] [place] [address] * (ABNORMAL) POCT glucose meter (08/09/2025 5:01 PM EST) [facility] POCT Glucose 272(H) 74 - 99 [...] Comment 08/09/2025 5:03 PM EST [facility] Personal Financial Representative ID Winnie Stringer 08/09/2025 5:03 PM EST [facility] LAB Device ID [id number] 08/09/2025 5:03 PM EST [facility] Specimen Type POC Capillary 08/09/2025 5:03 PM EST [facility] Blood Capillary blood specimen / Unknown 08/09/2025 5:01 PM EST 08/09/2025 5:03 PM EST us Fabienne Palm MD LAB POINT OF CARE TEST DOCKED DEVICE UNSOLICITED RESULTS Final Result Performing Organization Address City/[facility]/ZIP Co de Phone Number [facility] [address] [place] [address] * Vancomycin, Peak, Plasma Please draw ~2 hours after 0900 08/09 dose of vancomycin finishes infusing. Consider obtaining level via peripheral stick. If peripheral stick is not feasible, please ensure that line is flushed well prior to drawing level... (08/09/2025 12:49 PM EST) Vancomycin, Peak, Plasma 20.0 20.0 - 40.0 ug/mL 08/09/2025 1:46 PM EST [facility] Blood Venous blood specimen / Unknown Venipuncture / Unknown 08/09/2025 12:49 PM EST 08/09/2025 1:11 PM EST Narrative [facility] - 08/09/2025 1:46 PM EST Therapeutic Peak level: 20-40ug/mL Supra-therapeutic Peak level: >40 ug/mL us Oriana Castelan MD LAB BLOOD ORDERABLES Final R esult [facility] [address] [place] [address] * (ABNORMAL) POCT glucose meter (08/09/2025 11:54 AM EST) POCT Glucose 395(H) 74 - 99 mg/dL 08/09/2025 11:56 AM EST [facility] Comment:Accuracy of [...] for testing. Comment 08/09/2025 11:56 AM EST [facility] Personal Financial Representative ID Winnie Stringer 08/09/2025 11:56 AM EST [facility] Device ID [id number] 08/09/2025 11:56 AM EST [facility] Specimen Type POC Capillary 08/09/2025 11:56 AM EST [facility] Blood Capillary blood specimen / Unknown 08/09/2025 11:54 AM EST 08/09/2025 11:56 AM EST Fabienne Palm MD LAB POINT OF CARE TEST DOCKED DEVICE UNSOLICITED RESULTS Final Result Performing Organization Address [facility] Co de Phone Number [facility] [address] [place] [address] * (ABNORMAL) Vancomycin, Trough, Plasma Please draw ~30 minutes prior to dose due at 0830 on 08/09. Please do NOT hold dose awaiting level to return. Consider obtaining level via peripheral stick. If peripheral stick is not feasible, please ensure that line i... (08/09/2025 8:30 AM EST) Vancomycin, Trough, Plasma 8.2(L) 10.0 - 20.0 ug/mL 08/09/2025 10:45 AM EST [facility] Blood Venous blood specimen / Unknown Venipuncture / Unknown 08/09/2025 8:30 AM EST 08/09/2025 10:15 AM EST Narrative [facility] - 08/09/2025 10:45 AM EST Therapeutic Trough level: 10-20ug/mL Supra-therapeutic Trough level: >20 ug/mL us Oriana Castelan MD LAB BLOOD ORDERABLES Final R esult Performing Organization Address [facility] Co de Phone Number [facility] [address] [place] [address] * (ABNORMAL) POCT glucose meter (08/09/2025 7:38 [...] for testing. Comment 08/09/2025 7:39 AM EST [facility] Personal Financial Representative ID Winnie Stringer 08/09/2025 7:39 AM EST [facility] Device ID [id number] 08/09/2025 7:39 AM EST [facility] Specimen Type POC Capillary 08/09/2025 7:39 AM EST [facility] Blood Capillary blood specimen / Unknown 08/09/2025 7:38 AM EST 08/09/2025 7:39 AM EST Oriana Castelan MD LAB POINT OF CARE TE ST DOCKED DEVICE UNSOLICITED RESULTS Final Result [facility] [address] [place] [address] * (ABNORMAL) POCT glucose meter (08/09/2025 3:42 AM EST) [facility] POCT Glucose 232(H) 74 - 99 mg/dL 08/09/2025 3:45 AM EST [facility] Comment:Accuracy of a glucos e result [...] for testing. Comment 08/09/2025 3:45 AM EST [facility] Personal Financial Representative ID Janene Bush 3:45 AM EST [facility] Device ID [id number] 08/09/2025 3:45 AM EST [facility] Specimen Type POC Capillary 08/09/2025 3:45 AM EST [facility] Blood Capillary blood specimen / Unknown 08/09/2025 3:42 AM EST 08/09/2025 3:45 AM EST us Oriana Castelan MD LAB POINT OF CARE TE ST DOCKED DEVICE UNSOLICITED RESULTS Final Result Performing Organization Address City/[facility]/ZIP Co de Phone Number [facility] [address] [place] [address] * Phosphorus, Plasma (08/09/2025 2:30 AM EST) Phosphorus, Plasma 3.2 2.5 - 4.5 mg/dL 08/09/2025 3:14 AM EST [facility] Blood Venous blood specimen / Unknown Venipuncture / Unknown 08/09/2025 2:30 AM EST 08/09/2025 2:44 AM EST us Fabienne Palm MD LAB BLOOD ORDERABLES Coleen l Result Performing Organization Address City/[facility]/ZIP Co de Phone Number [facility] [address] [place] [address] * (ABNORMAL) Magnesium, Plasma (08/09/2025 2:30 AM EST) Magnesium, Plasma 1.8(L) 1.9 - 2.4 mg/dL 08/09/2025 3:14 AM EST [facility] Blood Venous blood specimen / Unknown Venipuncture / Unknown 08/09/2025 2:30 AM EST 08/09/2025 2:44 AM EST us Fabienne Palm MD LAB BLOOD ORDERABLES Coleen l Result Performing Organization Address City/[facility]/ZIP Co de Phone Number [facility] [address] [place] [address] * (ABNORMAL) Comprehensive metabolic panel (08/09/2025 2:30 AM EST) Glucose, Plasma 226(H) 74 - 99 mg/dL 08/09/2025 3:14 AM EST [facility] BUN, Plasma 22(H) 7 - 21 mg/dL 08/09/2025 3:14 AM [facility] Creatinine, Plasma 1.18 0.70 - 1.20 mg/dL 08/09/2025 3:14 AM [facility] BUN/Creatinine Ratio 19 08/09/2025 3:14 AM [facility] Sodium, Plasma 133(L) 136 - 145 mmol/L 08/09/2025 3:14 AM [facility] Potassium, Plasma 4.5 3.6 - 4.9 mmol/L 08/09/2025 3:14 AM [facility] Chloride, Plasma 99 97 - 107 mmol/L 08/09/2025 3:14 AM [facility] CO2, Plasma 24 22 - 29 mmol/L 08/09/2025 3:14 AM [facility] Anion Gap 10 6 - 16 mmol/L 08/09/2025 3:14 AM [facility] Total Calcium, Plasma 9.9 8.9 - 10.2 mg/dL 08/09/2025 3:14 AM [facility] Total Protein 7.1 6.3 - 7.9 g/dL 08/09/2025 3:14 AM [facility] Albumin, Plasma 3.6 3.5 - 5.2 g/dL 08/09/2025 3:14 AM [facility] AST, Plasma 29 10 - 50 U/L 08/09/2025 3:14 AM [facility] Comment:Hemolyzed, result ma y be falsely increased. ALT, Plasma 37 10 - 50 U/L 08/09/2025 3:14 AM [facility] Alkaline Phosphatase, Plasma 75 40 - 115 U/L 08/09/2025 3:14 AM [facility] Total Bilirubin, Plasma 0.4 0.2 - 1.1 mg/dL 08/09/2025 3:14 AM [facility] eGFRcr 71.1 mL/min/1.7 3m*2 08/09/2025 3:14 AM [facility] Comment:Reported eGFRcr in m L/min/1.73m2 is based the CKD-EPI 2020 equation that does not use a race coefficient. Blood Venous blood specimen / Unknown Venipuncture / Unknown 08/09/2025 2:30 AM EST 08/09/2025 2:44 AM EST [facility] TEJEDA LAB BLOOD ORDERABLES F inal Result [facility] [address] [place] [address] * (ABNORMAL) CBC and differential (08/09/2025 2:30 AM EST) Pathologist [facility] [place] WBC Count 8.34 3.70 - 10.30 10*3/uL LAB HEMATOLOGY METHOD 08/09/2025 2:50 AM EST [facility] RBC Count 4.90 4.60 - 6.10 10*6/uL LAB HEMATOLOGY METHOD 08/09/2025 2:50 AM EST [facility] HGB 14.4 13.7 - 17.5 g/dL LAB HEMATOLOGY METHOD 08/09/2025 2:50 AM EST [facility] HCT 43.0 40.0 - 51.0 % LAB HEMATOLOGY METHOD 08/09/2025 2:50 AM EST [facility] Platelet Count 159 155 - 369 10*3/uL LAB HEMATOLOGY METHOD 08/09/2025 2:50 AM EST [facility] MCV 88 79 - 98 fL LAB HEMATOLOGY METHOD 08/09/2025 2:50 AM EST [facility] MCH 29.4 26.0 - 32.0 pg LAB HEMATOLOGY METHOD 08/09/2025 2:50 AM EST [facility] MCHC 33.5 30.7 - 35.5 g/dL LAB HEMATOLOGY METHOD 08/09/2025 2:50 AM EST [facility] RDW 11.7 11.5 - 14.5 % LAB HEMATOLOGY METHOD 08/09/2025 2:50 AM EST [facility] MPV 12.7(H) 8.8 - 12.5 fL LAB HEMATOLOGY METHOD 08/09/2025 2:50 AM EST [facility] nRBC 0.0 <=0.0 per 100 WBCs LAB HEMATOLOGY METHOD 08/09/2025 2:50 AM EST [facility] Differential Type Automated LAB HEMATOLOGY METHOD 08/09/2025 2:50 AM EST [facility] Neutrophils % 72 % LAB HEMATOLOGY METHOD 08/09/2025 2:50 AM EST [facility] Lymphocytes % 13 % LAB HEMATOLOGY METHOD 08/09/2025 2:50 AM EST [facility] Monocytes % 10 % LAB HEMATOLOGY METHOD 08/09/2025 2:50 AM EST [facility] Eosinophils % 3 % LAB HEMATOLOGY METHOD 08/09/2025 2:50 AM EST [facility] Basophils % 1 % LAB HEMATOLOGY METHOD 08/09/2025 2:50 AM EST [facility] Immature Granulocytes % 1 % LAB HEMATOLOGY METHOD 08/09/2025 2:50 AM EST [facility] Neutrophils Absolute 6.04 1.60 - 6.10 10*3/uL LAB HEMATOLOGY METHOD 08/09/2025 2:50 AM EST [facility] Lymphocytes Absolute 1.06(L) 1.20 - 3.90 10*3/uL LAB HEMATOLOGY METHOD 08/09/2025 2:50 AM EST [facility] Monocytes Absolute 0.87 0.30 - 0.90 10*3/uL LAB HEMATOLOGY METHOD 08/09/2025 2:50 AM EST [facility] Eosinophils Absolute 0.28 0.00 - 0.50 10*3/uL LAB HEMATOLOGY METHOD 08/09/2025 2:50 AM EST [facility] Basophils Absolute 0.05 0.00 - 0.10 10*3/uL LAB HEMATOLOGY METHOD 08/09/2025 2:50 AM EST [facility] Immature Granulocytes Absolute 0.04 0.00 - 0.06 10*3/uL LAB HEMATOLOGY METHOD 08/09/2025 2:50 AM EST [facility] Blood Venous blood specimen / Unknown Venipuncture / Unknown 08/09/2025 2:30 AM EST 08/09/2025 2:44 AM EST [facility] - 08/09/2025 2:50 AM EST Therapeutic decision making should be based on absolute values, rather than percentages. us Mery TEJEDA LAB BLOOD ORDERABLES F inal Result [facility] [address] [place] [address] * (ABNORMAL) C-Reactive Protein, Plasma (08/09/2025 2:30 AM EST) CRP, Plasma 91.2(H) <=8.0 mg/L 08/09/2025 3:14 AM EST [facility] Blood Venous blood specimen / Unknown Venipuncture / Unknown 08/09/2025 2:30 AM EST 08/09/2025 2:44 AM EST Narrative [facility] - 08/09/2025 3:14 AM EST This CRP test is appropriate for assessment of infection, systemic inflammation and/or tissue injury. To assess cardiovascular disease risk order high sensitivity CRP (CRPH). us Mery TEJEDA LAB BLOOD ORDERABLES F inal Result Performing Organization Address City/[facility]/ZIP Co de Phone Number [facility] [address] [place] [address] * Vitamin D 1,25 dihydroxy (08/09/2025 2:30 AM EST) VITAMIN D, 1, 25-DIHYDROXY 44.9 19.9 - 79.3 pg/mL 08/12/2025 8:43 AM EST [facility] Blood Venous blood specimen / Unknown Venipuncture / Unknown 08/09/2025 2:30 AM EST 08/09/2025 2:44 AM EST us Fabienne Palm MD LAB BLOOD ORDERABLES Coleen l Result Performing Organization Address City/[facility]/ZIP Co de Phone Number [facility] [address] [place] [address] * MR Foot Left w and wo [...] multiecho sequences were obtained utilizing T1 and [id number] with and without the administration of intravenous [...] - 99 mg/dL 08/08/2025 8:34 PM EST [facility] Comment:Accuracy of a glucos e result [...] for testing. Comment 08/08/2025 8:34 PM EST [facility] Personal Financial Representative ID Janene Bush 8:34 PM EST [facility]ALTH[facility]ARE LAB Device ID [id number] 08/08/2025 8:34 PM EST [facility] Specimen Type POC Capillary 08/08/2025 8:34 PM EST [facility] Blood Capillary blood specimen / Unknown 08/08/2025 8:32 PM EST 08/08/2025 8:34 PM EST Oriana Castelan MD LAB POINT OF CARE TE ST DOCKED DEVICE UNSOLICITED RESULTS Final Result Performing Organization Address City/[facility] Co de Phone Number [facility] [address] [place] [address] * (ABNORMAL) POCT glucose meter (08/08/2025 4:11 PM EST) POCT Glucose 211(H) 74 - 99 mg/dL 08/08/2025 4:13 PM EST [facility] Comment:Accuracy of a glucos e result [...] Comment 08/08/2025 4:13 PM EST [facility] Personal Financial Representative ID Veronica Red 025 4:13 PM EST [facility] LAB Device ID [id number] 08/08/2025 4:13 PM EST [facility] Specimen Type POC Capillary 08/08/2025 4:13 PM EST [facility] Blood Capillary blood specimen / Unknown 08/08/2025 4:11 PM EST 08/08/2025 4:13 PM EST us Oriana Castelan MD LAB POINT OF CARE TE ST DOCKED DEVICE UNSOLICITED RESULTS Final Result Performing Organization Address City/[facility]/ZIP Co de Phone Number [facility] [address] [place] [address] * (ABNORMAL) POCT glucose meter (08/08/2025 11:21 [...] for testing. Comment 08/08/2025 11:24 AM EST [facility] Personal Financial Representative ID Veronica Red 025 11:24 AM EST [facility] Device ID [id number] 08/08/2025 11:24 AM EST [facility] Specimen Type POC Capillary 08/08/2025 11:24 AM EST [facility] Blood Capillary blood specimen / Unknown 08/08/2025 11:21 AM EST 08/08/2025 11:24 AM EST Oriana Castelan MD LAB POINT OF CARE TE ST DOCKED DEVICE UNSOLICITED RESULTS Final Result Performing Organization Address City/State/[facility] de Phone Number [facility] [address] [place] [address] * (ABNORMAL) POCT glucose meter (08/08/2025 8:07 AM EST) Pathologist [facility] [place] POCT Glucose 359(H) 74 - 99 mg/dL 08/08/2025 8:08 AM EST [facility] Comment:Accuracy of a glucos e result [...] for testing. Comment 08/08/2025 8:08 AM EST [facility] Personal Financial Representative ID Veronica Red 025 8:08 AM EST [facility] Device ID [id number] 08/08/2025 8:08 AM EST [facility] Specimen Type POC Capillary 08/08/2025 8:08 AM EST [facility] Blood Capillary blood specimen / Unknown 08/08/2025 8:07 AM EST 08/08/2025 8:08 AM EST Oriana Castelan MD LAB POINT OF CARE TE ST DOCKED DEVICE UNSOLICITED RESULTS Final Result Performing Organization Address [facility] Co de Phone Number [facility] [address] [place] [address] * (ABNORMAL) POCT glucose meter (08/08/2025 3:48 AM EST) POCT Glucose 277(H) 74 - 99 mg/dL 08/08/2025 3:50 AM EST [facility] Comment:Accuracy of a glucos e result [...] for testing. Comment 08/08/2025 3:50 AM EST [facility] Personal Financial Representative ID Marilu Hernandez 3:50 AM EST [facility] Device ID [id number] 08/08/2025 3:50 AM EST [facility] Specimen Type POC Capillary 08/08/2025 3:50 AM EST [facility] Blood Capillary blood specimen / Unknown 08/08/2025 3:48 AM EST 08/08/2025 3:50 AM EST Oriana Castelan MD LAB POINT OF CARE TE ST DOCKED DEVICE UNSOLICITED RESULTS Final Result Performing Organization Address City/[facility] Co de Phone Number [facility] [address] [place] [address] * (ABNORMAL) Basic metabolic panel (08/08/2025 1:15 AM EST) Glucose, Plasma 268(H) 74 - 99 mg/dL 08/08/2025 1:54 AM EST [facility] BUN, Plasma 27(H) 7 - 21 mg/dL 08/08/2025 1:54 AM EST [facility] Creatinine, Plasma 1.45(H) 0.70 - 1.20 mg/dL 08/08/2025 1:54 AM EST [facility] BUN/Creatinine Ratio 19 08/08/2025 1:54 AM EST [facility] Sodium, Plasma 133(L) 136 - 145 mmol/L 08/08/2025 1:54 AM EST [facility] Potassium, Plasma 4.3 3.6 - 4.9 mmol/L 08/08/2025 1:54 AM EST [facility] Chloride, Plasma 99 97 - 107 mmol/L 08/08/2025 1:54 AM EST [facility] CO2, Plasma 25 22 - 29 mmol/L 08/08/2025 1:54 AM EST [facility] Anion Gap 9 6 - 16 mmol/L 08/08/2025 1:54 AM EST [facility] Total Calcium, Plasma 9.3 8.9 - 10.2 mg/dL 08/08/2025 1:54 AM EST [facility] eGFRcr 55.5 mL/min/1.7 3m*2 08/08/2025 1:54 AM EST [facility] Comment:Reported eGFRcr in m L/min/1.73m2 is based the CKD-EPI 2020 equation that does not use a race coefficient. Blood Venous blood specimen / Unknown Venipuncture / Unknown 08/08/2025 1:15 AM EST 08/08/2025 1:23 AM EST Mery TEJEDA LAB BLOOD ORDERABLES F inal Result [facility] [address] [place] [address] * (ABNORMAL) CBC and Differential (08/08/2025 1:15 AM EST) WBC Count 9.46 3.70 - 10.30 10*3/uL LAB HEMATOLOGY METHOD 08/08/2025 1:30 AM EST [facility] RBC Count 4.49(L) 4.60 - 6.10 10*6/uL LAB HEMATOLOGY METHOD 08/08/2025 1:30 AM EST [facility] HGB 13.4(L) 13.7 - 17.5 g/dL LAB HEMATOLOGY METHOD 08/08/2025 1:30 AM EST [facility] HCT 39.8(L) 40.0 - 51.0 % LAB HEMATOLOGY METHOD 08/08/2025 1:30 AM [facility] Platelet Count 138(L) 155 - 369 10*3/uL LAB HEMATOLOGY METHOD 08/08/2025 1:30 AM [facility] MCV 89 79 - 98 fL LAB HEMATOLOGY METHOD 08/08/2025 1:30 AM EST [facility] MCH 29.8 26.0 - 32.0 pg LAB HEMATOLOGY METHOD 08/08/2025 1:30 AM [facility] MCHC 33.7 30.7 - 35.5 g/dL LAB HEMATOLOGY METHOD 08/08/2025 1:30 AM [facility] RDW 11.7 11.5 - 14.5 % LAB HEMATOLOGY METHOD 08/08/2025 1:30 AM [facility] MPV 12.6(H) 8.8 - 12.5 fL LAB HEMATOLOGY METHOD 08/08/2025 1:30 AM [facility] nRBC 0.0 <=0.0 per 100 WBCs LAB HEMATOLOGY METHOD 08/08/2025 1:30 AM [facility] Differential Type Automated LAB HEMATOLOGY METHOD 08/08/2025 1:30 AM [facility] Neutrophils % 79 % LAB HEMATOLOGY METHOD 08/08/2025 1:30 AM [facility] Lymphocytes % 9 % LAB HEMATOLOGY METHOD 08/08/2025 1:30 AM [facility] Monocytes % 10 % LAB HEMATOLOGY METHOD 08/08/2025 1:30 AM [facility] Eosinophils % 2 % LAB HEMATOLOGY METHOD 08/08/2025 1:30 AM [facility] Basophils % 0 % LAB HEMATOLOGY METHOD 08/08/2025 1:30 AM [facility] Immature Granulocytes % 0 % LAB HEMATOLOGY METHOD 08/08/2025 1:30 AM [facility] Neutrophils Absolute 7.42(H) 1.60 - 6.10 10*3/uL LAB HEMATOLOGY METHOD 08/08/2025 1:30 AM [facility] Lymphocytes Absolute 0.80(L) 1.20 - 3.90 10*3/uL LAB HEMATOLOGY METHOD 08/08/2025 1:30 AM EST [facility] Monocytes Absolute 0.96(H) 0.30 - 0.90 10*3/uL LAB HEMATOLOGY METHOD 08/08/2025 1:30 AM EST [facility] Eosinophils Absolute 0.21 0.00 - 0.50 10*3/uL LAB HEMATOLOGY METHOD 08/08/2025 1:30 AM EST [facility] Basophils Absolute 0.04 0.00 - 0.10 10*3/uL LAB HEMATOLOGY METHOD 08/08/2025 1:30 AM EST [facility] Immature Granulocytes Absolute 0.03 0.00 - 0.06 10*3/uL LAB HEMATOLOGY METHOD 08/08/2025 1:30 AM EST [facility] Blood Venous blood specimen / Unknown Venipuncture / Unknown 08/08/2025 1:15 AM EST 08/08/2025 1:23 AM EST Narrative [facility] - 08/08/2025 1:30 AM EST Therapeutic decision making should be based on absolute values, rather than percentages. Mery TEJEDA LAB BLOOD ORDERABLES F inal Result [facility] [address] [place] [address] * (ABNORMAL) POCT glucose meter (08/07/2025 8:55 PM EST) POCT Glucose 305(H) 74 - 99 mg/dL 08/07/2025 8:56 PM EST [facility] Comment:Accuracy of a glucos e result [...] for testing. Comment 08/07/2025 8:56 PM EST [facility] Personal Financial Representative ID Marilu Hernandez 8:56 PM EST [facility] Device ID [id number] 08/07/2025 8:56 PM EST [facility] Specimen Type POC Capillary 08/07/2025 8:56 PM EST [facility] Blood Capillary blood specimen / Unknown 08/07/2025 8:55 PM EST 08/07/2025 8:56 PM EST Result [facility] Oriana Castelan MD LAB POINT OF CARE TE ST DOCKED DEVICE UNSOLICITED RESULTS Final Result Performing Organization Address City/[facility]/ZIP Co de Phone Number [facility] [address] [place] [address] * (ABNORMAL) POCT glucose meter (08/07/2025 4:34 PM EST) POCT Glucose 357(H) 74 - 99 mg/dL 08/07/2025 4:37 PM EST [facility] Comment:Accuracy of a glucos e result [...] Comment 08/07/2025 4:37 PM EST [facility] Personal Financial Representative ID Avani Alicia 4:37 PM EST [facility] Device ID [id number] 08/07/2025 4:37 PM EST [facility] Specimen Type POC Capillary 08/07/2025 4:37 PM EST [facility] Blood Capillary blood specimen / Unknown 08/07/2025 4:34 PM EST 08/07/2025 4:37 PM EST Oriana Castelan MD LAB POINT OF CARE TE ST DOCKED DEVICE UNSOLICITED RESULTS Final Result Performing Organization Address City/[facility]/ZIP Co de Phone Number [facility] [address] [place] [address] * Blood Culture (Aerobic/Anaerobet Set) (08/07/2025 7:16 AM EST) Culture No growth at day 5 08/12/2025 9:01 AM EST [facility] Blood Structure of part of right upper limb / Unknown Venipuncture / Unknown 08/07/2025 7:16 AM EST 08/07/2025 8:30 AM EST Narrative [facility] - 08/12/2025 9:01 AM EST Low blood volume submitted, results may be compromised us Luis Cody MD LAB MICROBIOLOGY - GENERAL ORDJunior MAURIBETH Final Result Performing Organization Address [facility]/ZIP Co de Phone Number [facility] [address] [place] [address] * (ABNORMAL) Hemoglobin A1c (08/07/2025 6:42 AM EST) Hemoglobin A1c 9.5(H) <5.7 % 08/07/2025 3:41 PM EST [facility] Blood Venous blood specimen / Unknown Venipuncture / Unknown 08/07/2025 6:42 AM EST 08/07/2025 7:06 AM EST Narrative [facility] - 08/07/2025 3:41 PM EST [facility] Interpretive Data: Diagnosis of Diabetes: Diabetic > or = 6.5% Pre-diabetic 5.7 to 6.4% Non-diabetic < or = 5.6% Glycemic Targets for Type I and Type II Diabetics: Non- Adults <7.0% Adults <6.0% Children and Adolescents <7.5% Source: [place] [employer]. Standards of medical care in diabetes,2017. Diabetes Care.2017:40 (suppl 1):S1-S135. us Mery TEJEDA LAB BLOOD ORDERABLES F inal Result Performing Organization Address City/[facility]/ZIP Co de Phone Number [facility] [address] [place] [address] * ED HIV 1/2 Antibody/Antigen Screen w/Reflex to HIV 1/2 Differentiation (08/07/2025 6:42 AM EST) HIV 1 & 2 Antibody/Antigen Screen Non Reactive Non Reactive 08/07/2025 7:42 AM EST [facility] Comment:Screening for HIV 1 & 2 antibodies, and P24 antigen is NONREACTIVE. No confirmatory testing is required. Blood Venous blood specimen / Unknown Venipuncture / Unknown 08/07/2025 6:42 AM EST 08/07/2025 7:03 AM EST us Luis Cody MD LAB BLOOD ORDERABLES Final Resu lt Performing Organization Address City/[facility]/ZIP Co de Phone Number [facility] [address] [place] [address] * Hepatitis C Antibody - ED (08/07/2025 6:42 AM EST) Hepatitis C Antibody Negative Negative 08/07/2025 7:43 AM EST [facility] Blood Venous blood specimen / Unknown Venipuncture / Unknown 08/07/2025 6:42 AM EST 08/07/2025 7:03 AM EST us Luis Cody MD LAB BLOOD ORDERABLES Final Resu lt Performing Organization Address City/[facility] Co de Phone Number [facility] [address] [place] [address] * (ABNORMAL) Sed rate, automated (08/07/2025 6:42 AM EST) Sedimentation Rate 28(H) <20 mm/hr 2024 7:44 AM EST [facility] Blood Venous blood specimen / Unknown Venipuncture / Unknown 08/07/2025 6:42 AM EST 08/07/2025 7:06 AM EST us Luis Cody MD LAB BLOOD ORDERABLES Final Resu lt Performing Organization Address City/[facility]/ZIP Co de Phone Number [facility] [address] [place] [address] * (ABNORMAL) C-Reactive protein (08/07/2025 6:42 AM EST) CRP, Plasma 178.0(H) <=8.0 mg/L 08/07/2025 7:29 AM EST [facility] Blood Venous blood specimen / Unknown Venipuncture / Unknown 08/07/2025 6:42 AM EST 08/07/2025 7:06 AM EST Narrative [facility] - 08/07/2025 7:29 AM EST This CRP test is appropriate for assessment of infection, systemic inflammation and/or tissue injury. To assess cardiovascular disease risk order high sensitivity CRP (CRPH). us Luis Cody MD LAB BLOOD ORDERABLES Final Resu lt Performing Organization Address City/[facility]/ZIP Co de Phone Number [facility] [address] [place] [address] * Lactic acid, venous (08/07/2025 6:42 AM EST) Lactate, Venous, Whole Blood 1.0 0.5 - 2.2 mmol/L LAB HEMATOLOGY METHOD 08/07/2025 6:54 AM EST [facility] Blood Venous blood specimen / Unknown Venipuncture / Unknown 08/07/2025 6:42 AM EST 08/07/2025 6:53 AM EST us Luis Cody MD LAB BLOOD ORDERABLES Final Resu lt Performing Organization Address [facility]/ZIP Co de Phone Number [facility] [address] [place] [address] * Type and screen (08/07/2025 6:42 AM [...] TEST ORDERABLES Final Result Performing Organization Address City/[facility]/ZIP Co de Phone Number BLOOD BANK [address] [place] [address], * Blood Culture (Aerobic/Anaerobet Set) (08/07/2025 6:42 AM EST) Culture No growth at day 5 08/12/2025 8:01 AM EST [facility] Blood Venous blood specimen / Unknown Venipuncture / Unknown 08/07/2025 6:42 AM EST 08/07/2025 7:38 AM EST us Luis Cody MD LAB MICROBIOLOGY - GENERAL ANITA PICHARDO Final Result [facility] [address] [place] [address] * (ABNORMAL) CMP (08/07/2025 6:42 AM EST) Glucose, Plasma 248(H) 74 - 99 mg/dL 08/07/2025 7:29 AM EST [facility] BUN, Plasma 17 7 - 21 mg/dL 08/07/2025 7:29 AM EST [facility] Creatinine, Plasma 1.04 0.70 - 1.20 mg/dL 08/07/2025 7:29 AM EST [facility] BUN/Creatinine Ratio 16 08/07/2025 7:29 AM EST [facility] Sodium, Plasma 131(L) 136 - 145 mmol/L 08/07/2025 7:29 AM EST [facility] Potassium, Plasma 4.3 3.6 - 4.9 mmol/L 08/07/2025 7:29 AM EST [facility] Chloride, Plasma 98 97 - 107 mmol/L 08/07/2025 7:29 AM EST [facility] CO2, Plasma 23 22 - 29 mmol/L 08/07/2025 7:29 AM EST [facility] Anion Gap 10 6 - 16 mmol/L 08/07/2025 7:29 AM EST [facility] Total Calcium, Plasma 10.0 8.9 - 10.2 mg/dL 08/07/2025 7:29 AM EST [facility] Total Protein 7.0 6.3 - 7.9 g/dL 08/07/2025 7:29 AM EST [facility] Albumin, Plasma 3.8 3.5 - 5.2 g/dL 08/07/2025 7:29 AM EST [facility] AST, Plasma 20 10 - 50 U/L 08/07/2025 7:29 AM EST [facility] ALT, Plasma 34 10 - 50 U/L 08/07/2025 7:29 AM EST [facility] Alkaline Phosphatase, Plasma 75 40 - 115 U/L 08/07/2025 7:29 AM EST [facility] Total Bilirubin, Plasma 0.7 0.2 - 1.1 mg/dL 08/07/2025 7:29 AM EST [facility] eGFRcr 82.7 mL/min/1.7 3m*2 08/07/2025 7:29 AM EST [facility] Comment:Reported eGFRcr in m L/min/1.73m2 is based the CKD-EPI 2020 equation that does not use a race coefficient. Blood Venous blood specimen / Unknown Venipuncture / Unknown 08/07/2025 6:42 AM EST 08/07/2025 7:06 AM EST us Lusi Cody MD LAB BLOOD ORDERABLES Final Resu lt [facility] [address] [place] [address] * (ABNORMAL) PT-INR (08/07/2025 6:42 AM EST) Prothrombin Time 14.7(H) 12.0 - 14.3 sec LAB COAGULATION METHOD 08/07/2025 7:45 AM EST [facility] INR 1.1 0.9 - 1.1 LAB COAGULATION METHOD 08/07/2025 7:45 AM EST [facility] Blood Venous blood specimen / Unknown Venipuncture / Unknown 08/07/2025 6:42 AM EST 08/07/2025 7:02 AM EST Narrative [facility] - 08/07/2025 7:45 AM EST OPTIMAL [...] MD LAB BLOOD ORDERABLES Final Resu lt [facility] [address] [place] [address] * (ABNORMAL) CBC w/diff (08/07/2025 6:42 AM EST) WBC Count 10.01 3.70 - 10.30 10*3/uL LAB HEMATOLOGY METHOD 08/07/2025 7:22 AM EST [facility] RBC Count 4.81 4.60 - 6.10 10*6/uL LAB HEMATOLOGY METHOD 08/07/2025 7:22 AM EST [facility] HGB 14.3 13.7 - 17.5 g/dL LAB HEMATOLOGY METHOD 08/07/2025 7:22 AM EST [facility] HCT 41.2 40.0 - 51.0 % LAB HEMATOLOGY METHOD 08/07/2025 7:22 AM EST [facility] Platelet Count 132(L) 155 - 369 10*3/uL LAB HEMATOLOGY METHOD 08/07/2025 7:22 AM EST [facility] MCV 86 79 - 98 fL LAB HEMATOLOGY METHOD 08/07/2025 7:22 AM EST [facility] MCH 29.7 26.0 - 32.0 pg LAB HEMATOLOGY METHOD 08/07/2025 7:22 AM EST [facility] MCHC 34.7 30.7 - 35.5 g/dL LAB HEMATOLOGY METHOD 08/07/2025 7:22 AM EST [facility] RDW 11.9 11.5 - 14.5 % LAB HEMATOLOGY METHOD 08/07/2025 7:22 AM EST [facility] MPV 13.0(H) 8.8 - 12.5 fL LAB HEMATOLOGY METHOD 08/07/2025 7:22 AM EST [facility] nRBC 0.0 <=0.0 per 100 WBCs LAB HEMATOLOGY METHOD 08/07/2025 7:22 AM EST [facility] Differential Type Automated LAB HEMATOLOGY METHOD 08/07/2025 7:22 AM EST [facility] Neutrophils % 74 % LAB HEMATOLOGY METHOD 08/07/2025 7:22 AM EST [facility] Lymphocytes % 11 % LAB HEMATOLOGY METHOD 08/07/2025 7:22 AM EST [facility] Monocytes % 13 % LAB HEMATOLOGY METHOD 08/07/2025 7:22 AM EST [facility] Eosinophils % 1 % LAB HEMATOLOGY METHOD 08/07/2025 7:22 AM EST [facility] Basophils % 0 % LAB HEMATOLOGY METHOD 08/07/2025 7:22 AM EST [facility] Immature Granulocytes % 1 % LAB HEMATOLOGY METHOD 08/07/2025 7:22 AM EST [facility] Neutrophils Absolute 7.45(H) 1.60 - 6.10 10*3/uL LAB HEMATOLOGY METHOD 08/07/2025 7:22 AM EST [facility] Lymphocytes Absolute 1.14(L) 1.20 - 3.90 10*3/uL LAB HEMATOLOGY METHOD 08/07/2025 7:22 AM EST [facility] Monocytes Absolute 1.27(H) 0.30 - 0.90 10*3/uL LAB HEMATOLOGY METHOD 08/07/2025 7:22 AM EST [facility] Eosinophils Absolute 0.06 0.00 - 0.50 10*3/uL LAB HEMATOLOGY METHOD 08/07/2025 7:22 AM EST [facility] Basophils Absolute 0.04 0.00 - 0.10 10*3/uL LAB HEMATOLOGY METHOD 08/07/2025 7:22 AM EST [facility] Immature Granulocytes Absolute 0.05 0.00 - 0.06 10*3/uL LAB HEMATOLOGY METHOD 08/07/2025 7:22 AM EST [facility] Blood Venous blood specimen / Unknown Venipuncture / Unknown 08/07/2025 6:42 AM EST 08/07/2025 7:06 AM EST Narrative [facility] - 08/07/2025 7:22 AM EST Therapeutic decision making should be based on absolute values, rather than percentages. us Luis Cody MD LAB BLOOD ORDERABLES Final Resu lt [facility] [address] [place] [address] * EKG now - STAT (adult) (08/07/2025 6:35 AM EST) EKG DIAGNOSIS CLASS Abnormal MUSE ECG Ventricular Rate 72 BPM MUSE ECG Atrial Rate 72 BPM MUSE ECG ND Interval 178 ms MUSE ECG QRSD Interval 90 ms MUSE ECG QT Interval 358 ms MUSE ECG QTC Interval 392 ms MUSE ECG P [place] 31 degrees MUSE ECG R [place] -14 degrees MUSE ECG T Wave [place] 43 degrees MUSE ECG Diagnosis Normal sinus rhythm MUSE ECG Diagnosis Cannot rule out Inferior infarct , age undetermined MUSE ECG Diagnosis Anterolateral infarct , age undetermined MUSE ECG Diagnosis Abnormal ECG MUSE ECG Diagnosis MUSE ECG Diagnosis Confirmed by Sherry Abreu ([id number]) on 08/07/2025 8:35:57 AM MUSE ECG 08/07/2025 [...] 250 mg, Oral, Daily, First dose on Sat08/08/25 at [...] meals, First dose (after last modification) on 08/10/25 at 1730, Until Discontinued, Routine Given 08/16/2025 [...] (Recothrom) topical solution As needed, Starting on 08/11/25 at 1256, Until Sat08/11/25 at 1313, Routine [...] on 08/07/25 at 1455, Until Discontinued, Routine 801 (Given - Provider: Matilde Ornelas RN) 08 (Given - Provider: Meena Chou LPN) 1007 (Given - Provider: Marina Madison RN) ceFAZolin (Ancef) injection 2 g 2 g, Intravenous, Every 8 hours, First dose on Sat08/13/25 at 1400, Until Discontinued, Routine 0532 (Given - Provider: Gucci Abel RN)1419 (Given - Provider: Matilde Ornelas RN)2258 (Given - Provider: Tamara Lou, RN) 0632 (Given - Provider: Tamara Lou RN)1346 (Given - Provider: Olga Tomlin RN)2112 (Given - Provider: Amisha Velásquez, RN) 0551 (Given - Provider: Amisha Velásquez, RN)1238 (Given - Provider: Marina Madison RN) cholecalciferol (Vitamin D-3) tablet 1,000 Units 1,000 Units, Oral, Daily, First dose on 08/07/25 at 1455, Until Discontinued 0802 (Given - Provider: Matilde Ornelas RN) 0803 (Given - Provider: Meena Chou LPN) 1008 (Given - Provider: Marina Madison RN) docusate sodium (Colace) capsule 250 mg 250 mg, Oral, Daily, First dose on Sat08/08/25 at [...] ORLIN) 035 (Not Given - Provider: Amisha Velásquez, ORLIN - Reason: Order parameters not met) Insulin [...] Discontinued, Routine 1249 (Given - Provider: Matilde Ornelas, RN)2022 (Given - Provider: Tamara Lou, RN) 005 (Given - Provider: Tamara Lou RN)1402 (Given - Provider: Olga Tomlin RN) 0037 (Not Given - Provider: Amisha Velásquez RN - Reason: Order parameters not met)1238 (Given - Provider: Marina Madison, RN) PRN Medication Order 08/14/2025 08/15/2025 08/16/2025 [...] =2: NIPS 1033 (Given - Provider: Klarissa Whitehead, ORLIN)2015 (Given - Provider: Tamara Lou, RN) melatonin [...] documented as of this encounter Care Teams Sales Order Specialist Relationship Specialty Start Date End Date Iraida Reese APRN [address] [place] [address] PCP - General 08/07/25 documented as of this encounter
--- OUTSIDE RECORDS SUMMARY | 2025-08-11 12:15 | XMS_ITS | Encounter Summary ---
Author Organization Healthcare Address [address] [place] [address] Care Team Providers Care Brick Extruder Operator Name Role Phone Iraida Reese APRN Primary Care Provider [phone] Reason for Visit * Auth/Cert (Routine) Specialty Diagnoses / Procedures Referred By Darrell t Referred To Contact Diagnoses Cellulitis and abscess of toe of left foot necrotizing fasciitis of left foot Oriana Castelan MD [address] [place] [phone] Phone: tel: fax: [facility] [address] [place] [phone] Referral ID Status Reason Start Date Expiration Date Visits Re quested Visits Authorized [id number] 1 1 Encounter Details Date Type Department Care Team (Late st Contact Info) Description 08/11/2025 12:15 PM EST Anesthesia Event [facility] [address] [place] [phone] Raymond Villela MD [address] [place] [phone] Vidhya Thompson MD [address] [place], [place] [id number] Anesthesia Record Procedure Summary Procedure Name Responsible Anesthesiologist Anesthesia Start Time Anesthesia Stop Time AMPUTATION,TOE (Left: Toes) Raymond Villela MD 08/11/25 1215 08/11/25 1318 Events Date Time Event Comment 08/11/2025 1215 An Start The patient was reevaluated immediately before sedation and remains eligible for anesthesia plan. 1215 An Start Data 1215 In Room 1227 An Induction The patient was reevaluated immediately before moderate or deep sedation use and before anesthesia induction. 1228 An Intubation 1229 Anesthesia Ready 1251 Proc Start 1306 An Extubation 1306 Proc Fin 1310 an stop data 1313 Out of Room 1318 Handoff to Receiving I compl eted my handoff to the receiving clinician during which we: 1. Identified the patient 2. Identified the responsible provider 3. Reviewed the pertinent medical history 4. Discussed the surgical course 5. Reviewed intra-op anesthesia management and issues during anesthesia 6. Set expectations for post-procedure period 7. Allowed opportunity for questions and acknowledgement of understanding. 1318 An Stop Meds Name Total 0.5% ropivacaine 35 mL fentaNYL (Sublimaze) injection 50 mcg midazolam (Versed) injection 2 mg lidocaine PF (Xylocaine-MPF) 2% 40 mg propofol (Diprivan) injection 10 mg/mL 1 50 mg ePHEDrine injection prefilled syringe 5 mg/mL 10 mg phenylephrine (Ric-Synephrine) prefilled syringe 1 mg/10 mL 400 mcg ondansetron (Zofran) injection 2 mg/mL 4 mg lactated Ringer's infusion 400 mL * Agents Name O2 N2O Air Sevoflurane Isoflurane Desflurane Inspired Desflurane Inspired Isoflurane Inspired Sevoflurane N2O Inspired N2O * Blood No blood administrations on file. Lines, Drains, and Airways Type Details Placement Removal Wound 08/11/25; 1252; N; Y es; Surgical; Toe (Comment which one); Anterior, Left 08/11/25 1252 by Eleno Gavin RN Peripheral IV Placement Date: 08/07/25; Placement Time: 0642; Catheter Size: 20 G; Orientation: Left, Posterior; Location: Forearm; Removal Date: 08/16/25; Removal Time: 1454 08/07/25 0642 by Carol Mayer RN 08/16/25 1454 by Marina Madison RN Wound 08/07/25; 2005; Y; Y es; Traumatic; Puncture; Toe (Comment which one) (4th); Left; 08/15/25; 0730; Converged 08/07/252004 by Janie Ma RN 08/15/25 0730 by Olga Tomlin RN Peripheral IV Placement Date: 08/11/25; Placement Time: 1225 (created via procedure documentation); Catheter Size: 20 G; Orientation: Right; Location: Hand; Local Anesth: None; Technique: Anatomical landmarks; Inserted by: Lucia Reed CRNA, DNP; Insertion Attempts: 1; Removal Date: 08/16/25; Removal Time: 1453 08/11/25 1225 by Lucia Reed CRNA, DNP 08/16/25 1453 by Marina Madison RN Supraglottic Airway Placement Date: 08/11/25; Placement Time: 1228 (created via procedure documentation); Mask Ventilation: 0; Comments: Atraumatic, dentition unchanged; Removal Date: 08/11/25; Removal Time: 1306 08/11/25 1228 by Lucia Reed CRNA, DNP 08/11/25 1306 by Lucia Reed CRNA, DNP documented in this encounter Social History Tobacco Use Types Packs/Day Years Used Date Smoking Tobacco: Never Smokeless Tobacco: Never Alcohol Use Standard Drinks/Week Comments [...] any time in the past 12 m onths, were you homeless or living in a skilled nursing (including now)? No 08/09/2025 [facility] Utilities Answer Date Recorded In the past 12 months has th e [employer], gas, oil, or water company threatened to shut off services in your home? No 08/09/2025 Sex and Gender Information Value Date Recorded Sex Assigned at Not on file Legal Sex Male 6:50 PM EDT Gender Identity Not on file Sexual Orientation Not on file documented as of this encounter Functional Status * Question Answer Date of Assessment Author Precautions None 08/14/2025 8:00 PM Tamara Anglin RN * Calculated C-SSRS Risk Score (Lifetime/Recent) Answer Date of Assessment Author No Risk Indicated 08/15/2025 4:00 PM EST Meena Chou LPN * Question Answer Date of Assessment Author 1. Wish to be (Past 1 Month) No 025 4:00 PM EST Meena Chou LPN 2. Non-Specific Active Suici ramsey Thoughts (Past 1 Month) No 08/15/2025 4:00 PM EST Meena Chou LPN 6. Suicidal Behavior (Lifetime) No 4:00 PM Meena Pascual LPN documented as of this encounter Mental Status * Question Answer Entry Date Author Precautions None 08/14/2025 8:00 PM Tamara Anglin RN documented in this encounter Miscellaneous Notes * Anesthesia Postprocedure Evaluation - Lucia Reed, KRISTIE, DNP - 08/11/2025 3:11 PM EST Patient: Hi Goode Anesthesia Type: general, regional Vitals Value Taken Time BP 102/60 08/11/25 13:18 Temp 36.5 ??C (97.7 ??F) 11/26/25 13:18 Pulse 65 08/11/25 13:18 Resp 18 08/11/25 13:18 SpO2 96 % 08/11/25 13:18 Vitals shown include unfiled device data. Anesthesia Post Evaluation Patient location during evaluation: PACU Patient participation: complete - patient cannot participate Level of consciousness: sedated Pain management: adequate (pain score 0-3) Airway patency: natural airway Cardiovascular status: acceptable and hemodynamically stable Respiratory status: acceptable, face mask, nonlabored ventilation, spontaneous ventilation, unassisted and oral airway Hydration status: acceptable Nausea/Vomiting: No No notable events documented. * Anesthesia Procedure Notes - Lucia Reed CRNA, DNP - 08/11/2025 12:39 PM ESTAssociated Order(s): Peripheral IV Peripheral IV Date/Time: 08/11/2025 12:25 PM Inserted by: Lucia Reed CRNA, DNP Placement Needle size: 20 G Location: hand Local anesthetic: none Site prep: alcohol Technique: anatomical landmarks Attempts: 1 * Anesthesia Procedure Notes - Lucia Reed CRNA, DNP - 08/11/2025 12:39 PM ESTAssociated Order(s): Airway Airway Date/Time: 08/11/2025 12:28 PM Reason: elective Airway not difficult General Information and Staff Patient location during procedure: OR TOOTH CUTTER PINION: Lucia Reed CRNA, DNP Performed: KRISTIE Patient Condition Indications for airway management: anesthesia Patient position: sniffing MILS maintained throughout Final Airway Details Final airway type: LMALMA Size: 4 LMA Type: normal Additional Comments Atraumatic, dentition unchanged * Anesthesia Procedure Notes - María Mars MD - 08/11/2025 12:11 PM EST Associated Order(s): Peripheral Block Peripheral Block Patient location during procedure: pre-op Start time: 08/11/2025 12:03 PM End time: 08/11/2025 12:09 PM Staffing Performed: Resident Anesthesiologist: Audelia Baig MD Resident: María Mars MD Preanesthetic Checklist Completed: patient identified, IV checked, site marked, risks and benefits discussed, surgical consent, monitors and equipment checked, pre-op evaluation and timeout performed Peripheral Block Patient position: supine Prep: ChloraPrep Patient monitoring: continuous pulse ox, heart rate and environmental monitoring technician Block type: popliteal and adductor canal Laterality: left Injection technique: single-shot Guidance: ultrasound guided Local infiltration: lidocaine Infiltration strength: 2 % Dose: 5 mL Ultrasound used for needle placement AND ultrasound image retained Needle Needle type: block needle Needle gauge: 20 G Needle length: 4 in Assessment Injection assessment: negative aspiration for heme, local visualized surrounding nerve on ultrasound, incremental injection, no paresthesia on injection and no apparent complications Paresthesia pain: none Heart rate change: no Slow fractionated injection: yes Additional Notes The patient was placed in supine position, with ipsilateral lower extremity suspended in the air with support of footrest. A linear ultrasound probe was placed in the transverse position at the popliteal crease. Ultrasound was used to identify the bifurcation of the sciatic n. into the common peroneal n. and tibial n. The ultrasound was then guided proximally to identify the sciatic n. proximal to the bifurcation. A large area of skin encompassing the intended needle insertion site was cleansed using chloraprep.The skin was anesthetized by creating a skin wheal with lidocaine. The block needle was inserted through anesthetized skin and advanced from lateral to medial using an in-plane technique with ultrasound guidance. Local anesthetic was injected in 5 mL aliquots with incremental aspiration negative for heme. Local anesthetic was injected to spread in the sheath that envelops the tibial n. and commonperoneal n. A total of 25cc of 0.50% Ropivacaine without adjunct was utilized for the block. The needle was removed from the patient. The patient tolerated the procedure well, with no obvious complication The patient was placed in supine position, with ipsilateral lower extremity in frog leg position. Alinear ultrasound probe was placed on anteromedial thigh, in the region distal to inguinal crease and proximal to mid-thigh. The relevant neurovascular and muscle anatomy was identified including thesartorius m., adductor longus m., vastus medialis m., femoral a., femoral v., and targeted branchesof the femoral n. A large area of skin encompassing the intended needle insertion site was cleansed using chloraprep.The skin was anesthetized by creating a skin wheal with lidocaine. The block needle was inserted through anesthetized skin and advanced from lateral to medial using an in-plane technique with ultrasound guidance. Local anesthetic was injected in 5 mL aliquots with incremental aspiration negative for heme. Local anesthetic injected adjacent to the femoral a. targeting the saphenous n. and in the intermuscular layer between the sartorius m. and vastus medialis m. to target the nerve to vastus medialis. A total of 10cc of 0.50% Ropivacaine without adjunct was utilized for the block. The needle was removed from the patient. The patient tolerated the procedure well, with no obvious complications. Reason for block: primary anesthetic Anxiolytics medication administered: fentaNYL (Sublimaze) injection - Intravenous 50 mcg - 08/11/2025 12:03:00 PM midazolam (Versed) injection - Intravenous 2 mg - 08/11/2025 12:03:00 PM Perineurial local anesthetics medication administered: 0.5% ropivacaine - Injection 10 mL - 08/11/2025 12:03:00 PM 25 mL - 08/11/2025 12:07:00 PM Cosigned by Audelia Baig MD at 08/11/2025 1:30 PM EST Associated attestation - Audelia Baig MD - 08/11/2025 1:30 PM EST I was present during all critical and clement portions of the procedure(s) and immediately available [facility] services the entire duration. See resident note for details. * Anesthesia Preprocedure Evaluation - Raymond Villela MD - 08/11/2025 11:49 AM EST Patient: Hi Goode is a 60 y.o. male with body mass index is 27.57 kg/m??. who presents with Cellulitis and abscess of toe of left foot, now for AMPUTATION,TOE (Left) Procedure Information Date/Time: 08/11/25 1200 Procedure: AMPUTATION,TOE (Left: Toes) Location: [facility] / [facility] Surgeons: Andie Moyer MD 60 yo M w/PMH of IDDM2, HLD, HTN, bladder ca (in remission) and depression who presents for 4th toeamputation after stepping on a nail. Relevant Problems Cardio (+) Essential (primary) hypertension Endo (+) Insulin dependent type 2 diabetes mellitus Other (+) Osteoarthritis ALLERGIES Allergies[1] NPO STATUS Date of Last Liquid: 08/11/25 Time of Last Liquid: 1000 Date of Last Solid: 08/10/25 Time of Last Solid: 1800 Past Medical History[2] AIRWAY HISTORY Airway Detailed Review Displaying the 20 most recent records No records found. MEDICATIONS Outpatient Current Outpatient Medications Medication Instructions atorvastatin (LIPITOR) 40 mg, Daily buPROPion SR (WELLBUTRIN SR) 150 mg, Daily cholecalciferol (VITAMIN D3) 1,000 Units, Daily finasteride (PROSCAR) 5 mg, Daily glipiZIDE XL (GLIPIZIDE XL) 10 mg, Daily Lantus SoloStar 20-25 Units, Nightly lisinopril-hydroCHLOROthiazide 20-12.5 MG tablet 2 tablets, Daily multivitamin (Theragran-M) tablet 1 tablet, Daily NovoLOG FLEXPEN 0-12 Units, 3 times daily before meals Scheduled Current Scheduled Medications[3] PRNs Current PRN Medications[4] SURGICAL HX: Surgical History[5] SOCIAL HX: Social History[6] OBJECTIVE DATA LABS Lab Results Component Value Date WBC 8.04 08/11/2025 HGB 14.0 08/11/2025 HCT 40.7 08/11/2025 MCV 86 08/11/2025 PLT 176 08/11/2025 Lab Results Component Value Date CALCIUM 9.5 08/11/2025 BUN 19 08/11/2025 CREATININE 1.03 08/11/2025 BCR 18 08/11/2025 NA 134 (L) 08/11/2025 K 4.1 08/11/2025 CL 100 08/11/2025 CO2 22 08/11/2025 Type and Screen No results found for: ABO Results from last 7 days Lab Units 08/07/25 0642 INR 1.1 Lab Results Component Value Date HGBA1C 9.5 (H) 08/07/2025 Lab Results Component Value Date PGLU 177 (H) 08/11/2025 GLUCOSE 205 (H) 08/11/2025 ABG No results found for: PHART , SWL0XQR , PO2ART , SO2ART , BEART , UTH6JUV , HCTART , SODIUMART , POTASSIUMART , POCTCL , POCGLU , IONCALART , LACTATE No results found for: PH , PCO2 , PO2 , Z6EXCADS , BASEEXC , HCTSYR , KSYR , CLSYR , GLUSYR , CAION , LACTATE ECHO No echocardiogram results found for the past 12 months PFTs No results found for: KCI8ONI , NTC6WPER , AJU1MAY , FVCPRED BP Readings from Last 5 Encounters: 08/11/25 126/80 12/05/17 (!) 139/91 Physical Exam Airway Mallampati: II Mouth opening: normal TM distance: >3 FB Neck ROM: full Cardiovascular Rhythm: regular Rate: normal Dental - normal exam Pulmonary Breath sounds clear to auscultation Neurological Oriented: normal to time, normal to place and normal to person and oriented to person, place and time Skin Skin: warm and dry Musculoskeletal Extremities Anesthesia Plan ASA 3 Plan was reviewed with: TOOTH CUTTER PINION Anesthesia technique(s) discussed with the patient/family: general and regional Anesthesia plan agreed upon was: general and regional Anesthetic plan and risks discussed with patient. ROS Anesthesia: history of previous anesthesia. Does not have a history of anesthetic complications. Cardiovascular: hypertension: Respiratory: Negative respiratory ROS. HEENT: Negative HEENT ROS. Neurological: Negative neuro ROS. Gastrointestinal: Negative GI ROS. Endocrine/Metabolic: diabetes mellitus type 2. [1] Allergies Allergen Reactions Codeine Itching [2] Past Medical History: Diagnosis Date Essential (primary) hypertension History of bladder cancer Hyperlipidemia, mixed Insulin dependent type 2 diabetes mellitus Major depressive disorder Osteoarthritis [3] [Transfer Hold] atorvastatin, 40 mg, Oral, Nightly [...] Intravenous, PRN vancomycin, 1,250 mg, Intravenous, q12h [4] PRN medications: [Transfer Hold] acetaminophen, ceFAZolin (Ancef) 1 g in sodium chloride 0.9 % 1,010 mL irrigation, [Transfer Hold] glucose OR [Transfer Hold] dextrose 10 % OR [Transfer Hold] dextrose 10 % OR [Transfer Hold] glucagon (human recombinant), [Transfer Hold] ibuprofen, [T ransfer Hold] melatonin, [COMPLETED] Insert peripheral IV AND [COMPLETED] Saline lock IV AND [Transfer Hold] sodium chloride AND [Transfer Hold] sodium chloride, Insert peripheral IV AND Saline lock IV AND sodium chloride AND sodium chloride [5] Past Surgical History: Procedure Laterality Date TRANSURETHRAL RESECTION OF PROSTATE N/A [6] Social History Tobacco Use Smoking status: Never Smokeless tobacco: Never Substance Use Topics Alcohol use: No Drug use: Never documented in this encounter Plan of Treatment Upcoming Encounters Date Type Department Care Team (Late st Contact Info) Description 08/31/2025 11:20 AM EST Office Visit [facility] [address] [place] [phone] Renea Li, ILEANA [address] [place] [phone] documented as of this encounter Procedures Procedure Name Priority Date/Time Associated Diagnosis Comments PB ANESTHESIA PLACEHOLDER Routine 08/11/2025 12:28 PM EST TN AN ELECTIVE SUPRAGLOTTIC AIRWAY Routine 08/11/2025 12:28 PM EST ANESTHESIA PERIPHERAL IV PLACEMENT Routine 08/11/2025 12:25 PM EST PB POINT OF CARE IMAGING PLACEHOLDER Routine 08/11/2025 12:03 PM EST documented in this encounter Results * TN AN ELECTIVE SUPRAGLOTTIC AIRWAY, PB ANESTHESIA PLACEHOLDER (08/11/2025 12:28 PM EST) Narrative Lucia Reed CRNA, DNP - 08/11/2025 12:28 PM EST Lucia Reed CRNA, DNP 08/11/2025 12:39 PM Airway Date/Time: 08/11/2025 12:28 PM Reason: elective Airway not difficult General Information and Staff Patient location during procedure: OR TOOTH CUTTER PINION: Lucia Reed CRNA, DNP Performed: TOOTH CUTTER PINION Patient Condition Indications for airway management: anesthesia Patient position: sniffing MILS maintained throughout Final Airway Details Final airway type: LMALMA Size: 4 LMA Type: normal Additional Comments Atraumatic, dentition unchanged Raymond Villela MD ANESTHESIA ORDERABLES Final R esult * Peripheral IV (08/11/2025 12:25 PM EST) Narrative Lucia Reed CRNA, DNP - 08/11/2025 12:25 PM EST Lucia Reed CRNA, DNP 08/11/2025 12:39 PM Peripheral IV Date/Time: 08/11/2025 12:25 PM Inserted by: Lucia Reed CRNA, DNP Placement Needle size: 20 G Location: hand Local anesthetic: none Site prep: alcohol Technique: anatomical landmarks Attempts: 1 us Raymond Villela MD ANESTHESIA ORDERABLES Final R esult * PB POINT OF CARE IMAGING PLACEHOLDER (08/11/2025 12:03 PM EST) Narrative Audelia Baig MD - 08/11/2025 12:03 PM EST Audelia Baig MD 08/11/2025 1:30 PM Peripheral Block Patient location during procedure: pre-op Start time: 08/11/2025 12:03 PM End time: 08/11/2025 12:09 PM Staffing Performed: Resident Anesthesiologist: Audelia Baig MD Resident: María Mars MD Preanesthetic Checklist Completed: patient identified, IV checked, site marked, risks and benefits discussed, surgical consent, monitors and equipment checked, pre-op evaluation and timeout performed Peripheral Block Patient position: supine Prep: ChloraPrep Patient monitoring: continuous pulse ox, heart rate and environmental monitoring technician Block type: popliteal and adductor canal Laterality: left Injection technique: single-shot Guidance: ultrasound guided Local infiltration: lidocaine Infiltration strength: 2 % Dose: 5 mL Ultrasound used for needle placement AND ultrasound image retained Needle Needle type: block needle Needle gauge: 20 G Needle length: 4 in Assessment Injection assessment: negative aspiration for heme, local visualized surrounding nerve on ultrasound, incremental injection, no paresthesia on injection and no apparent complications Paresthesia pain: none Heart rate change: no Slow fractionated injection: yes Additional Notes The patient was placed in supine position, with ipsilateral lower extremity suspended in the air with support of footrest. A linear ultrasound probe was placed in the transverse position at the popliteal crease. Ultrasound was used to identify the bifurcation of the sciatic n. into the common peroneal n. and tibial n. The ultrasound was then guided proximally to identify the sciatic n. proximal to the bifurcation. A large area of skin encompassing the intended needle insertion site was cleansed using chloraprep. The skin was anesthetized by creating a skin wheal with lidocaine. The block needle was inserted through anesthetized skin and advanced from lateral to medial using an in-plane technique with ultrasound guidance. Local anesthetic was injected in 5 mL aliquots with incremental aspiration negative for heme. Local anesthetic was injected to spread in the sheath that envelops the tibial n. and common peroneal n. A total of 25cc of 0.50% Ropivacaine without adjunct was utilized for the block. The needle was removed from the patient. The patient tolerated the procedure well, with no obvious complication The patient was placed in supine position, with ipsilateral lower extremity in frog leg position. A linear ultrasound probe was placed on anteromedial thigh, in the region distal to inguinal crease and proximal to mid-thigh. The relevant neurovascular and muscle anatomy was identified including the sartorius m., adductor longus m., vastus medialis m., femoral a., femoral v., and targeted branches of the femoral n. A large area of skin encompassing the intended needle insertion site was cleansed using chloraprep. The skin was anesthetized by creating a skin wheal with lidocaine. The block needle was inserted through anesthetized skin and advanced from lateral to medial using an in-plane technique with ultrasound guidance. Local anesthetic was injected in 5 mL aliquots with incremental aspiration negative for heme. Local anesthetic injected adjacent to the femoral a. targeting the saphenous n. and in the intermuscular layer between the sartorius m. and vastus medialis m. to target the nerve to vastus medialis. A total of 10cc of 0.50% Ropivacaine without adjunct was utilized for the block. The needle was removed from the patient. The patient tolerated the procedure well, with no obvious complications. Reason for block: primary anesthetic Anxiolytics medication administered: fentaNYL (Sublimaze) injection - Intravenous 50 mcg - 08/11/2025 12:03:00 PM midazolam (Versed) injection - Intravenous 2 mg - 08/11/2025 12:03:00 PM Perineurial local anesthetics medication administered: 0.5% ropivacaine - Injection 10 mL - 08/11/2025 12:03:00 PM 25 mL - 08/11/2025 12:07:00 PM Raymond Villela MD ANESTHESIA ORDERABLES Final R esult documented in this encounter Visit Diagnoses Not on filedocumented in this encounter Administered Medications Inactive Administered Medications - up to 3 most recent administrations Medication Order MAR Action Action Date Dose Rate Site ePHEDrine Sulfate (Akovaz) injection Intravenous, As needed, Starting on Sat08/11/25 at 1251, Until Sat08/11/25 at 1511, Routine, Anesthesia Intraprocedure Given 08/11/2025 1:03 PM EST 5 mg Given 08/11/2025 12:51 PM EST 5 mg fentaNYL (Sublimaze) injection Intravenous, Once PRN Procedure, Starting on Sat08/11/25 at 1203, Until Sat08/11/25 at 1203, Routine, Anesthesia Intraprocedure Given 08/11/2025 12:03 PM EST 50 mcg lactated Ringer's infusion Intravenous, Continuous PRN, Starting on Sat08/11/25 at 1227, Until Sat08/11/25 at 1511, Routine New Bag 08/11/2025 12:27 PM EST lidocaine PF (Xylocaine) 2 % injection Intravenous, As needed, Starting on Sat08/11/25 at 1227, Until Sat08/11/25 at 1511, Routine, Anesthesia Intraprocedure Given 08/11/2025 12:27 PM EST 40 mg midazolam (Versed) injection Intravenous, Once PRN Procedure, Starting on Sat08/11/25 at 1203, Until Sat08/11/25 at 1203, Routine, Anesthesia Intraprocedure Given 08/11/2025 12:03 PM EST 2 mg ondansetron (Zofran) injection Intravenous, As needed, Starting on Sat08/11/25 at 1301, Until Sat08/11/25 at 1511, Routine, Anesthesia Intraprocedure Given 08/11/2025 1:01 PM EST 4 m g phenylephrine in NS (Ric-Synephrine) 100 mcg/mL prefilled syringe Intravenous, As needed, Starting on Sat08/11/25 at 1231, Until Sat08/11/25 at 1511, Routine, Anesthesia Intraprocedure Given 08/11/2025 1:03 PM EST 100 mcg Given 08/11/2025 12:51 PM EST 100 mcg Given 08/11/2025 12:40 PM EST 100 mcg propofol (Diprivan) injection Intravenous, As needed, Starting on Sat08/11/25 at 1227, Until Sat08/11/25 at 1511, Routine, Anesthesia Intraprocedure Given 08/11/2025 12:27 PM EST 15 0 mg ropivacaine (Naropin) injection Injection, Once PRN Procedure, Starting on Sat08/11/25 at 1203, Until Sat08/11/25 at 1207, Routine, Anesthesia Intraprocedure Given 08/11/2025 12:07 PM EST 25 mL Given 08/11/2025 12:03 PM EST 10 mL documented in this encounter Additional Health Concerns Assessment Noted Time A Body Mass Index follow-up plan has been documented for the patient 08/16/2025 2:54 PM EST documented as of this encounter Care Teams Brick Extruder Operator Relationship Specialty Start Date End Date Iraida Reese APRN [address] [place] [address] PCP - General 08/07/25 documented as of this encounter
[2025-08-23 21:09] VITALS: BP 154/85; PULSE 67; RESP 17; TEMP 37.1; O2SAT 94; BMI 29.7
--- OUTSIDE RECORDS SUMMARY | 2025-08-23 21:25 | XMS_ITS | Encounter Summary ---
Author Organization Healthcare Address [address] [id number] Care Team Providers Care Grease Monkey Name Role Phone Iraida Reese APRN Primary Care Provider [phone] Harriet Bush LPN Unavailable Unavaila ble Reason for Visit * Reason Comments TCM Encounter Details Date Type Department Care Team (Late st Contact Info) Description 08/17/2025 Patient Outreach [facility] [address] [place] [address] Harriet Bush LPN VALUE-BASED TRANSFORMATION PROGRAM None TCM Social History Tobacco Use Types Packs/Day Years [...] any time in the past 12 m [facility], were you homeless or living in a group home (including now)? No 08/09/2025 [facility] Utilities Answer Date Recorded In the past [...] as of this encounter Functional Status * Are you deaf or do you [...] 08/16/2025 2:53 PM Marina Velázquez RN documented as of this encounter Mental Status * Because of a physical, mental, or emotional condition, do you have serious difficulty concentrating, remembering, or making decisions? (5 years old or older) Answer Entry Date Author No 08/16/2025 2:53 PM Marina Velázquez RN documented in this encounter Miscellaneous Notes * Progress Notes - Harriet Bush LPN - 08/17/2025 12:20 PM EST Admit Date: 08/07/2025 Discharge Date: 08/16/2025 Hospital Service: Hospital Medicine Discharge Diagnosis: Cellulitis and abscess of toe of left foot 08/17/2025 TCM call # [phone] Patient Reached: Yes Outcome: Spoke with patient for TCM nurse call. Patient plans to call PCP office today for a follow-up. Patient has a wound follow-up on the 08/31/25. Patient questioned bathing with the wound, no discharge instruction provided covering that information. This nurse and patient discussed patient will cover area with plastic to keep dry until instructions from wound care. Patient denies any pain and has not completed dressing change yet today. Action: Educated on need to schedule with PCP and endocrinology. Medication changes: per AVS STOP: glipiZIDE XL 10 MG 24 hr tablet START: Acetaminophen 1,000 mg Oral Every 8 hours PRN Cefadroxil 500 mg Oral 2 times daily Ibuprofen 400 mg Oral Every 8 hours PRN CHANGE: Lantus SoloStar (insulin glargine) NovoLOG FLEXPEN (insulin aspart) [facility] appointment: Needs scheduled. Items to address at [facility]AVE[facility]: -med changes -wound care documented in this encounter Plan of Treatment Upcoming Encounters Date Type Department Care Team (Late st Contact Info) Description 08/31/2025 11:20 AM EST Office Visit [facility] [address] [facility] 5th Floor Wing [address], [address] [place] [address] Renea Li PA [address] [facility] [address] [place] [address] documented as of this encounter Visit Diagnoses Not on filedocumented in this encounter Additional Health Concerns Assessment Noted Time A Body Mass Index follow-up plan has been documented for the patient 08/16/2025 2:54 PM EST documented as of this encounter Care Teams Grease Monkey Relationship Specialty Start Date End Date Iraida Reese APRN [address] [place] [address] PCP - General 08/07/25 Harriet Bush LPN VALUE-BASED TRANSFORMATION PROGRAM None Registered Nurse 08/17/25 documented as of this encounter
--- OUTSIDE RECORDS SUMMARY | 2025-08-23 21:26 | XMS_ITS | Encounter Summary ---
Author Organization Healthcare Address [address] [place] [address] Care Team Providers Care Air Pollution Control Engineer Name Role Phone Iraida Reese APRN Primary Care Provider [phone] Encounter Details Date Type Department Care Team (Latest Contact Info) Description 08/11/2025 Travel Social History Tobacco Use Types Packs/Day Years [...] any time in the past 12 m [facility], were you homeless or living in a long term (including now)? No 08/09/2025 [facility] Utilities Answer Date Recorded In the past 12 months has th e [employer], gas, oil, or water company threatened to shut off services in your home? No 08/09/2025 Sex and Gender Information Value Date Recorded Sex Assigned at Not on file Legal Sex Male 6:50 PM EDT Gender Identity Not on file Sexual Orientation Not on file documented as of this encounter Functional Status * Question Answer Date of Assessment Author Precautions Environmental surveillance 08/11/2025 10: 00 PM EST Coreen Buckley * Calculated C-SSRS Risk Score (Lifetime/Recent) Answer Date of Assessment Author No Risk Indicated 08/11/2025 8:00 PM EST Alicia Zhang RN * Question Answer Date of Assessment Author 1. Wish to be (Past 1 Month) No 08/11/2025 8:00 PM Bonny Lipscomb RN 2. Non-Specific Active Suicidal Thoughts (Past 1 Month) No 08/11/2025 8:00 PM Bonny Lipscomb RN 6. Suicidal Behavior (Lifetime) No 08/11/2025 8:00 PM Bonny Lipscomb RN documented as of this encounter Mental Status * Question Answer Entry Date Author Precautions Environmental surveillance 08/11/2025 10: 00 PM Coreen Palacio documented in this encounter Plan of Treatment Upcoming Encounters Date Type Department Care Team (Late st Contact Info) Description 08/31/2025 11:20 AM EST Office Visit [place] [facility] [address] [facility] 5th Floor [address], [address] [place] [address] Renea Li, PA [address] [place] [address] documented as of this encounter Visit Diagnoses Not on filedocumented in this encounter Additional Health Concerns Assessment Noted Time A Body Mass Index follow-up plan has been documented for the patient 08/16/2025 2:54 PM EST documented as of this encounter Care Teams Air Pollution Control Engineer Relationship Specialty Start Date End Date Iraida Reese APRN [address] [place] [address] PCP - General 08/07/25 documented as of this encounter
--- OUTSIDE RECORDS SUMMARY | 2025-08-23 21:30 | XMS_ITS ---
Author Organization [facility] Address [address] [place] [address] Care Team Providers Care County Superintendent Of Schools Name Role Phone Iraida Reese CHAKA Primary Care Provider [phone] Harriet Bush LPN Unavailable Unavaila ble Transitional Care Management Status:Active (Active) Program category:Transitional Care Management - [facility] Start date:08/17/2025 Enrollment date:08/17/2025 Enrollment reason:Identified using hospital discharge data Overview This episode type is for outpatient care managers enrolling patients in the [facility] Transitional Care Management program. Case Team Name Relationship Phone Harriet Bush LPN(Responsible Staff) Lindsey robles Nurse Continued Care and Services Coordination
--- OUTSIDE RECORDS SUMMARY | 2025-08-23 21:30 | XMS_ITS | Encounter Summary ---
Author Organization Healthcare Address [address] [place] [address] Care Team Providers Care Compliance Program Manager Name Role Phone Justin Morales MD Primary Care Provider [phone] Iraida Reese APRN Primary Care Provider [phone] Encounter Details Date Type Department Care Team (Late st Contact Info) Description 08/06/2025 Orders Only External Location [address] [phone] Cayden Feldman, [address] [place] [address] Social History Tobacco Use Types Packs/Day Years [...] time in the past 12 m [facility], were you homeless or living in a skilled nursing (including now)? No 08/09/2025 [facility] Utilities Answer Date Recorded In the [...] Answer Date of Assessment Author Precautions None 08/10/2025 6:00 AM Yobany Alas, ORLIN * Calculated C-SSRS Risk Score (Lifetime/Recent) Answer Date of Assessment Author No Risk Indicated 08/09/2025 8:00 PM Yobany Liao, ORLIN * Question Answer Date of Assessment Author 1. Wish to be (Past 1 Month) No 08/09/2025 8:00 PM Cholo Greene, ORLIN 2. Non-Specific Active Suicidal Thoughts (Past 1 Month) No 08/09/2025 8:00 PM Cholo Greene, RN 6. Suicidal Behavior (Lifetime) No 08/09/2025 8:00 PM Cholo Greene, RN documented as of this encounter Mental Status * Question Answer Entry Date Author Precautions None 08/10/2025 6:00 AM Yobany Alas, ORLIN documented in this encounter Plan of Treatment Upcoming Encounters Date Type Department Care Team (Late st Contact Info) Description 08/31/2025 11:20 AM EST Office Visit [place] [facility] [address] 5th Floor [address] [place] [address] Renea Li PA [address] [place] [address] documented as of this encounter Procedures Procedure Name Priority Date/Time Associated Diagnosis Comments XR MSK OUTSIDE IMAGES 08/06/2025 10:21 PM EST documented in this encounter Results * XR MSK OUTSIDE IMAGES (08/06/2025 10:21 PM EST) Anatomical Region Laterality Modality Radiographic Diana ging 08/06/2025 10:2 1 PM EST Cayden Feldman DO IMG XR PROCEDURES Edited Res ult - Final documented in this encounter Visit Diagnoses Not on filedocumented in this encounter Care Teams Compliance Program Manager Relationship Specialty Start Date End Date Justin Morales MD [address] [facility] [address] PCP - General 01/27/21 08/06/25 Iraida Reese APRN [address] [place] [address] PCP - General 08/07/25 documented as of this encounter
--- OUTSIDE RECORDS SUMMARY | 2025-08-23 21:31 | XMS_ITS | Encounter Summary ---
Author Organization Healthcare Address [address] [place] [address] Care Team Providers Care Perianesthesia Manager Name Role Phone Justin Morales MD Primary Care Provider [phone] Iraida Reese APRN Primary Care Provider [phone] Harriet Bush LPN Unavailable Unavaila ble Encounter Details Date Type Department Care Team (Late Contact Info) Description 01/31/2023 [facility] [address] [place] [address] Kayla Monroy DO [address] [place] [address] Increased prostate specific antigen (PSA) velocity (Primary [...] as of this encounter Plan of Treatment Upcoming Encounters Date Type Department Care Team (Late Contact Info) Description 08/31/2025 11:20 AM EST Office Visit [place] [facility] [address] [facility] 5th Floor [address], [address] [place] [address] Renea Li, ILEANA [address] [facility] [address] [place] [address] documented as of this encounter Visit Diagnoses Diagnosis Increased prostate specific antigen (PSA) velocity- Primary documented in this encounter Care Teams Perianesthesia Manager Relationship Specialty Start Date End Date Justin Morales MD [address] [facility] [place] [address] PCP - General 01/27/21 08/06/25 Iraida Reese APRN [address] [place] [address] PCP - General 08/07/25 Harriet Bush LPN VALUE-BASED TRANSFORMATION PROGRAM None Registered Nurse 08/17/25 documented as of this encounter
--- OUTSIDE RECORDS SUMMARY | 2025-08-23 21:33 | XMS_ITS | Encounter Summary ---
Author Organization Healthcare Address [address] [place] [address] Care Team Providers Care Curator Natural History Museum Name Role Phone Justin Morales MD Primary Care Provider [phone] Iraida Reese APRN Primary Care Provider [phone] Encounter Details Date Type Department Care Team (Late st Contact Info) Description 08/06/2025 Orders Only External Location [address] [place] [address] Provider, External Social History Tobacco Use Types Packs/Day Years [...] were you homeless or living in a senior living (including now)? No 08/09/2025 [facility] Utilities Answer Date Recorded In the [...] Precautions None 08/10/2025 6:00 AM Yobany Alas, RN documented in this encounter Plan of Treatment Upcoming Encounters Date Type Department Care Team (Late st Contact Info) Description 08/31/2025 11:20 AM EST Office Visit [facility] [address] [facility] 5th Floor [address], [address] [place] [address] Renea Li, PA [address] [place] [address] documented as of this encounter Procedures Procedure Name Priority Date/Time Associated Diagnosis Comments CT MSK OUTSIDE IMAGES 08/06/2025 11:51 PM EST documented in this encounter Results * CT MSK OUTSIDE IMAGES (08/06/2025 11:51 PM EST) Anatomical Region Laterality Modality Computed Tomogra phy 08/06/2025 11:5 1 PM EST us External Provider IMG CT PROCEDURES Final Result documented in this encounter Visit Diagnoses Not on filedocumented in this encounter Care Teams Curator Natural History Museum Relationship Specialty Start Date End Date Justin Morales MD [address] [place] [address] PCP - General 01/27/21 08/06/25 Iraida Reese APRN [address] [place] [address] PCP - General 08/07/25 documented as of this encounter
--- OUTSIDE RECORDS SUMMARY | 2025-08-23 21:33 | XMS_ITS | Encounter Summary ---
Author Organization Healthcare Address [address] [place] [address] Care Team Providers Care Dairy Management Specialist Name Role Phone Iraida Reese APRN Primary Care Provider [phone] Encounter Details Date Type Department Care Team (Latest Contact Info) Description 08/09/2025 Travel Social History Tobacco Use Types Packs/Day [...] any time in the past 12 m [facility], were you homeless or living in a retirement (including now)? No 08/09/2025 [facility] Utilities Answer Date Recorded In the past 12 months has th e [employer], gas, oil, or water [employer] threatened to shut off services in your home? No 08/09/2025 Sex and Gender Information Value Date Recorded Sex Assigned at Not on file Legal Sex Male 6:50 PM EDT Gender Identity Not on file Sexual Orientation Not on file documented as of this encounter Functional Status * Question Answer Date of Assessment Author Precautions None 08/09/2025 10:00 PM Yobany Zhao, ORLIN * Calculated C-SSRS Risk Score (Lifetime/Recent) Answer Date of Assessment Author No Risk Indicated 08/09/2025 8:00 PM Yobany Liao, ORLIN * Question Answer Date of Assessment Author 1. Wish to be (Past 1 Month) No 08/09/2025 8:00 PM Cholo Greene, ORLIN 2. Non-Specific Active Suicidal Thoughts (Past 1 Month) No 08/09/2025 8:00 PM Cholo Greene, ORLIN 6. Suicidal Behavior (Lifetime) No 08/09/2025 8:00 PM Cholo Greene, ORLIN documented as of this encounter Mental Status * Question Answer Entry Date Author Precautions None 08/09/2025 10:00 PM Yobany Zhao, ORLIN documented in this encounter Plan of Treatment Upcoming Encounters Date Type Department Care Team (Late st Contact Info) Description 08/31/2025 11:20 AM EST Office Visit [place] [facility] [address] [facility] 5th Floor [address] [place] [address] Renea Li, PA [address] [place] [address] documented as of this encounter Visit Diagnoses Not on filedocumented in this encounter Additional Health Concerns Assessment Noted Time A Body Mass Index follow-up plan has been documented for the patient 08/16/2025 2:54 PM EST documented as of this encounter Care Teams Dairy Management Specialist Relationship Specialty Start Date End Date Iraida Reese APRN [address] [place] [address] PCP - General 08/07/25 documented as of this encounter
--- OUTSIDE RECORDS SUMMARY | 2025-08-23 21:33 | XMS_ITS | Encounter Summary ---
Author Organization Healthcare Address [address] [place] [address] Care Team Providers Care Manager Landscape Name Role Phone Iraida Reese APRN Primary Care Provider [phone] Encounter Details Date Type Department Care Team (Latest Contact Info) Description 08/07/2025 Travel Social History Tobacco Use Types Packs/Day [...] as of this encounter Functional Status * Calculated C-SSRS Risk Score (Lifetime/Recent) Answer Date of Assessment Author No Risk Indicated 08/07/2025 4:15 PM EST Olivia Russell RN * Question Answer Date of Assessment Author 2. Non-Specific Active Suici ramsey Thoughts (Past 1 Month) No 08/07/2025 5:22 AM EST Saw Mayer RN * Question Answer Date of Assessment Author 1. Wish to be (Past 1 Month) No 025 4:15 PM EST Olivia Russell RN 6. Suicidal Behavior (Lifetime) No 5 4:15 PM EST Olivia Russell RN documented as of this encounter Plan of Treatment Upcoming Encounters Date Type Department Care Team (Late st Contact Info) Description 08/31/2025 11:20 AM EST Office Visit [place] [facility] [address] 5th [address] [place] [address] Renea Li, PA [address] [place] [address] documented as of this encounter Visit Diagnoses Not on filedocumented in this encounter Additional Health Concerns Assessment Noted Time A Body Mass Index follow-up plan has been documented for the patient 08/16/2025 2:54 PM EST documented as of this encounter Care Teams Manager Landscape Relationship Specialty Start Date End Date Iraida Reese APRN [address] [place] [address] PCP - General 08/07/25 documented as of this encounter
--- NOTE | 2025-08-23 22:02 | ED_ITS ---
Discharge Plan Disposition Patient Disposition: Home, Self-Care Condition: Good Prescriptions Prescriptions: No Action insulin glargine [Lantus Solostar U-100 Insulin] 100 unit/mL (3 mL) insulin pen 25 unit SQ DAILY Qty: 15 2RF bupropion HCl 150 mg tablet sustained-release 12 hr 150 mg .ROUTE ONCE Rx Instructions: 150 mg once; finasteride 5 mg tablet 5 mg PO DAILY (DME) lancets [Accu-Chek Softclix Lancets] Misc See Rx Instructions .ROUTE .MEDSUPPLY Qty: 100 2RF Rx Instructions: As directed (DME) blood-glucose meter [Accu-Chek Guide Glucose Meter] Misc See Rx Instructions .ROUTE .MEDSUPPLY Qty: 1 0RF Rx Instructions: As directed (DME) Accu-Chek Guide test strips Strip See Rx Instructions .ROUTE .MEDSUPPLY Qty: 50 2RF Rx Instructions: Test blood sugar 2x a day. (DME) pen needle, diabetic 32 gauge x 5/32 needle See Rx Instructions .ROUTE .MEDSUPPLY Qty: 1200 0RF Rx Instructions: As directed lisinopril-hydrochlorothiazide 20-12.5 mg tablet See Rx Instructions .ROUTE .COMPLEX Qty: 90 2RF Dose Instruction: TAKE TWO TABLETS BY MOUTH EVERY DAY FOR HIGH BLOOD PRESSURE Rx Instructions: TAKE TWO TABLETS BY MOUTH EVERY DAY FOR HIGH BLOOD PRESSURE insulin aspart U-100 [Novolog FlexPen U-100 Insulin] 100 unit/mL (3 mL) insulin pen 2 - 15 unit SQ ACHS Qty: 15 5RF Rx Instructions: Please check your blood sugar 30 minutes prior to eating 3 times a day. Please also check blood sugar before going to sleep. If blood sugar 151 to 200 mg/dL administer 2 units subcu short acting insulin If blood sugar 201 to 250 mg/dL administer 5 units subcu short acting insulin If blood sugar 251 to 300 mg/dL administer 8 units subcu short acting insulin If blood sugar 301 to 350 mg/dL administer 10 units subcu short acting insulin If blood sugar 351 to 400 mg/dL administer 15 units subcu short acting insulin If blood sugar over 400 mg/dL administer 15 units subcu short acting insulin and call doctor for further instructions. max daily 45 units atorvastatin 40 mg tablet 40 mg PO HS Qty: 90 1RF Referrals Follow up/Referrals: Iraida Reese APRN [Primary Care Provider, Family Practice] - See instructions Activity Restrictions/Add. Instructions Additional Instructions/Restrictions: Continue to dress your wounds as you are. Return for any signs of pus, severe redness, or severe pain. Clinical Impressions Clinical Impression: Visit for wound check Print Language Print Language: Belarusian Discharge ED Provider: Amisha German General Adult HPI General Chief complaint: Extremity Injury, Lower Stated complaint: Sore on left foot between toes Time Seen by Provider: 08/23/25 21:33 Mode of Arrival: Ambulatory Source of Information: Patient Description of Symptoms (Recalled from ER Triage Doc. by RN): Pt presents with concern for a white spot with loose skin where he got his 4th toe on L foot amputated at a couple weeks ago. Pt has known history of type 2 diabetes. Pt denies any pain or neuropathy on bilateral lower extremities. Pt states he was sent home with a 2 day antibiotic but is unsure of what antibiotic he was prescribed with History of Present Illness HPI narrative: Patient is a 60-year-old gentleman who came here to the emergency department for a wound check. Patient states that he had his fourth toe amputated and he has been doing wound checks at home. Patient was worried about some white skin between his toes. Patient denies any redness drainage acute pain or other associated symptoms. Patient states that he has been doing wet-to-dry dressings at home. Related Data Home Medications ?Medication ?Instructions ?Recorded ?Confirmed bupropion HCl 150 mg tablet,12 hr 150 mg .Route ONCE 1 08/23/25 sustained-release finasteride 5 mg tablet 5 mg PO DAILY 08/23/2508/23 Previous Rx's ?Medication ?Instructions ?Recorded blood-glucose meter (Accu-Chek #1 ea 04/16/24 Guide Glucose Meter) lancets (Accu-Chek Softclix #100 ea 04/16/24 Lancets) blood sugar diagnostic (Accu-Chek #50 ea 12/25/24 Guide test strips) pen needle, diabetic 32 gauge x #1,200 ea 01/28/25 insulin glargine 100 unit/mL (3 25 unit (0.25 mL) SQ D AILY 03/17/25 mL) subcutaneous pen (Lantus Diabetes #15 mL Solostar U-100 Insulin) insulin aspart U-100 100 unit/mL 2 - 15 unit (0.02 - 0 .15 mL) SQ 04/26/25 (3 mL) subcutaneous pen (Novolog ACHS hyperglycemia #1 5 mL FlexPen U-100 Insulin aspart) lisinopril 20 See Rx Instructions .Route 0 04/26/25 mg-hydrochlorothiazide 12.5 mg .COMPLEX #90 tabs tablet atorvastatin 40 mg tablet 40 mg PO HS #90 tabs 5 Allergies Allergy/AdvReac Type Severity Reaction Status Date / Time codeine AdvReac Intermediate Rash Verified 08/23/25 13:17 [facility] Disclaimer: The information contained in this section may have been updated after the patient was seen, as this information can be updated by other users. Medical History Contact dermatitis and eczema Acute pancreatitis Eyelid laceration, left Encounter for screening colonoscopy Viral upper respiratory tract infection Broken tooth Fonseca catheter in place Bladder cancer Bladder CA in situ Bladder cancer Constipation High cholesterol HTN (hypertension) Diabetes Constipation Surgical History History of colonoscopy History of prostate surgery Family History Grandmother Diabetes Family history of myocardial infarction Mother Diabetes Family history of myocardial infarction Father Diabetes Grandfather Diabetes Family history of myocardial infarction Social History Smoking Status: Never smoker alcohol intake: never substance use type: denies use current occupational status: employed Travel in the last 8 weeks?: None caffeine: Yes Have you lived/traveled outside [place] in past 30 days?: No Contact w/someone who lives/traveled outside [place] past 30 days?: No Exposure to someone with infectious disease in past 14 days?: No Do you have a fever (greater than 100.4 F or 38 C)?: No Have you tested positive for COVID-19?: No Exposed to someone with COVID-19 in past 14 days?: No Do you have a sore throat?: No Do you have a cough?: No Do you have any weakness?: No Do you have any diarrhea?: No Are you experiencing any unusual bleeding?: No Do you have any muscle aches/pain?: No Do you have any abdominal pain?: No Are you experiencing loss of taste or smell?: No Other Medical History Have you received the Flu Vaccine for this season: No Have you received the Pneumonia Vaccine: Yes ROS Obtained: Yes All systems reviewed & no additional complaints except as documented and Yes Systems reviewed as appropriate & no additional complaints except as documented Physical Exam General General appearance: alert and in no apparent distress Head Head exam: atraumatic, normocephalic and normal inspection Eye Eye exam: Present normal appearance, PERRL and EOMI; Absent scleral icterus ENT ENT exam: Present normal exam and normal external ear exam Neck Neck exam: Present normal inspection and full ROM Chest Chest inspection: Present normal inspection and symmetric chest wall rise Respiratory Respiratory exam: Present normal lung sounds bilaterally; Absent respiratory distress or wheezes Cardiovascular Cardiovascular exam: Present regular rate, normal rhythm and normal heart sounds Abdominal Exam Abdominal exam: Present soft and distention; Absent tenderness, guarding or rebound Extremities Exam Extremities exam: Present normal inspection and full ROM Back Exam Back exam: Present normal inspection and full ROM Neurological Exam Neurological exam: Present alert and oriented X3 Psychiatric Psychiatric exam: Present normal affect and normal mood Skin Skin exam: Present warm, dry and other (left foot with amputated 4th digit, small area of exposed healing skin, no drainage or redness, no swelling ) Medical Decision Making Medical Records Medical records reviewed: Yes I reviewed the patient's medical records. Screening: Per USPSTF and CDC recommendations, given the prevalence of disease in our region, it is our hospital?s policy to screen for HIV and viral Hepatitis for all patients aged 18 and over and those with ongoing risk factors. Eduardo Inquiry Pt receiving controlled substance: No Vital Signs: 08/23/25 21:09 08/23/25 22:21 Temperature 98.8 F 98.2 F Temperature Source Oral Oral Pulse Rate 62 Pulse Rate [Left Radial] 67 Respiratory Rate 17 16 Blood Pressure 163/82 H Blood Pressure [Right Arm] 154/85 H Blood Pressure Mean [Right Arm] 108 Blood Pressure Source Automatic Cuff Blood Pressure Source [Right Arm] Automatic Cuff Blood Pressure Position Sitting Blood Pressure Position [Right Arm] Sitting 02 Sat by Pulse Oximetry 94 L Oxygen Delivery Method Room Air Room Air Lab Data Lab results reviewed: Yes I reviewed the patient's lab results. Medical Decision Narrative: Patient is an otherwise healthy 60-year-old gentleman who presented to the emergency department with a wound check. Patient recently had his fourth left toe amputated. Patient is coming in with concern for some white skin. On arrival, patient is hemodynamically stable with unremarkable vital signs. Differential includes but not limited to cellulitis, postop infection, ap propriate wound healing, granulation tissue, amongst others On exam, patient's wound appears to be healing appropriately. There was no signs of infection including drainage redness severe swelling. Patient's wound had some new granulation tissue. Patient was advised to continue his dressings at home and follow-up with podiatry as needed. Patient was otherwise discharged home stable condition. No other workup was felt to be indicated at this time. Critical Care Critical Care Time Critical Care Time: No
[2025-08-23 22:21] VITALS: BP 163/82; PULSE 62; RESP 16; TEMP 36.8; O2SAT 95
== END 2025-08-23 22:22 | disposition home or self-care (01) ==
PROVIDERS: Emergency Provider Student in an Organized Health Care Education/Training Program; PCP Family Medicine
DX: Z48.89 Encounter for other specified surgical aftercare (principal)
CPT/HCPCS: 99282; 99283

== ENCOUNTER 2025-08-25 07:25 | Outpatient (CLI) | payer MEDICAID, SELFPAY ==
[2025-08-25 17:56] LABS: Hematocrit 40.1 % (42.0-52.0); Hemoglobin 13.5 g/dL (14.1-18.0); Immature Granulocytes % 0.2 %; Mean Corpuscular HGB Conc 33.7 g/dL (31.8-35.4); Mean Corpuscular Hemoglobin 29.5 pg (27.0-31.2); Mean Corpuscular Volume 87.6 fl (80-94); Nucleated Red Blood Cells % 0 %; Platelet Count 202 K/mm3 (142-424); Red Blood Count 4.58 M/mm3 (4.60-6.20); Red Cell Distribution Width-SD 37.8 fL; White Blood Count 5.6 K/mm3 (4.8-10.8)
[2025-08-25 18:34] LABS: Alanine Aminotransferase 35 U/L (12-78); Albumin Level 4.1 g/dl (3.5-5.0); Albumin/Globulin Ratio 1.4 (1.1-1.8); Alkaline Phosphatase 92 U/L (38-126); Anion Gap 17.0 mEq/L (5-15); Aspartate Amino Transferase 33 U/L (17-59); Bilirubin,Total 0.4 mg/dl (0.2-1.3); Blood Urea Nitrogen 30 mg/dl (9-20); Calcium 10.6 mg/dl (8.4-10.2); Carbon Dioxide 28 mmol/L (22.0-30.0); Chloride 102 mmol/L (98-107); Creatinine,Serum 1.30 mg/dl (0.66-1.25); Estimated Glomerular Filt Rate 57 ml/min (>60); GFR (African American) 68 ML/MIN (>60); Globulin 3.0 g/dL (1.3-3.2); Glucose 159 mg/dl (74-100); Potassium 5.0 mmoL/L (3.5-5.1); Sodium 142 mmol/L (136-145); Total Protein,Serum 7.1 g/dl (6.3-8.2)
[2025-08-25 20:25] LABS: Hemoglobin A1C 9.4 % (4.0-6.0)
== END 2025-08-25 23:59 ==
LOC: LAB.DROPOF 08-27 07:26
PROVIDERS: PCP Student in an Organized Health Care Education/Training Program; Visit Provider Family Medicine
DX: E11.65 Type 2 diabetes mellitus with hyperglycemia (principal)
CPT/HCPCS: 80053; 82043; 82570; 83036; 85025

== ENCOUNTER 2025-09-12 03:16 | Emergency (ER) | payer OTHER, SELFPAY ==
--- OUTSIDE RECORDS SUMMARY | 2025-08-07 05:18 | XMS_ITS | Encounter Summary ---
Author Organization [facility] Address [address] [id number] Care Team Providers Care Water Conservationist Name Role Phone Iraida Reese APRN Primary Care Provider [phone] Reason for Referral * Consultation (Routine) - Pending Review Specialty Diagnoses / Procedures Referred By Contact Referred To Contact Vascular Surgery / [facility] Diagnoses Cellulitis and abscess of toe of left foot Andie Moyer MD [address] [address] Phone: tel: fax: Andie Moyer MD [address] [address] Phone: tel: fax: Referral ID Status Reason Start Date Expiration Date Visits Requested Visits Authorized [id number] Pending Review Specialty Services Required 08/16/2025 02/15/2027 1 1 Reason for Visit * Reason Comments Foot Infection * Auth/Cert (Routine) Specialty Diagnoses / Procedures Referred By Contac t Referred To Contact Diagnoses Cellulitis and abscess of toe of left foot necrotizing fasciitis of left foot Oriana Castelan MD [address] [place] [address] Phone: tel: fax: [facility] Inpatient [address] [place] [address] Referral ID Status Reason Start Date Expiration Date Visits Re quested Visits Authorized [id number] 1 1 Encounter Details Date Type Department Care Team (Latest Contact Info) Description 08/07/2025 5:18 AM EST - 08/16/2025 5:03 PM [facility] Hospital Encounter [facility] Inpatient [address] [place] [address] Zay Dave MD [address] [place] [address] Oriana Castelan MD [address] [place] [address] Fabienne Palm MD [address] [place] [address] Uche Fonseca MD [address] [place] [address] Cellulitis and abscess of toe of left foot (Primary Dx); Insulin dependent type 2 diabetes mellitus Discharge Disposition: Home or Self Care Social History Tobacco Use Types Packs/Day Years Used Date Smoking Tobacco: Never Smokeless Tobacco: Never Tobacco Cessation:Counseling Given: Not Answered Alcohol Use Standard Drinks/Week Comments No 0 (1 standard drink = 0.6 oz pur e alcohol) Humiliation, Afraid, Rape, and Kick questionnair e Answer Date Recorded Within the last year, have y ou been afraid of your partner or ex-partner? No 08/09/2025 Within the last year, have y ou been humiliated or emotionally abused in other ways by your partner or ex-partner? No Within the last year, have y ou been kicked, hit, slapped, or otherwise physically hurt by your partner or ex-partner? No 08/09/2025 Within the last year, have y ou been raped or forced to have any kind of sexual activity by your partner or ex-partner? No 08/09/2025 Hunger Vital Sign Answer Date Recorded Within the past 12 months, y ou worried that your food would run out before you got the money to buy more. Never true 08/09/20 25 Within the past 12 months, t he food you bought just didn't last and you didn't have money to get more. Never true 08/09/2025 PRAPARE - Transportation Answer Date Re corded In the past 12 months, has l ack of transportation kept you from medical appointments or from getting medications? No 07/18 In the past 12 months, has l ack of transportation kept you from meetings, work, or from getting things needed for daily living? No 08/09/2025 Housing Stability Vital Sign Answer Michi e Recorded In the last 12 months, was t here a time when you were not able to pay the mortgage or rent on time? No 08/09/2025 In the past 12 months, how m any times have you moved where you were living? 0 08/09/2025 At any time in the past 12 m [facility] were you homeless or living in a assisted (including now)? No 08/09/2025 [facility] Utilities Answer Date Recorded In the past 12 months has th e electric, gas, oil, or water company threatened to shut off services in your home? No 08/09/2025 Sex and Gender Information Value Date Recorded Sex Assigned at Not on file Legal Sex Male 6:50 PM EDT Gender Identity Not on file Sexual Orientation Not on file documented as of this encounter Last Filed Vital Signs Vital Sign Reading Time Taken Comments Blood Pressure 127/76 08/16/2025 11:10 AM EST Pulse 71 08/16/2025 11:10 AM EST Temperature 36.4 C (97.5 F) 08/16/2025 11:10 AM EST Respiratory Rate 18 08/16/2025 3:16 AM EST Oxygen Saturation 96% 08/16/2025 11: 10 AM EST Inhaled Oxygen Concentration - - Weight 80.2 kg (176 lb 12.9 oz) 08/16/2025 5:38 AM EST Height 170.2 cm (5' 7 ) 08/07/2025 5:18 AM EST Body Mass Index 27.69 08/08/2025 8:19 AM EST documented in this encounter Functional Status * PT Therapeutic Procedures Time Entry Question Answer Date of Assessment Author Gait Training Time Entry 13 08/12/2025 3:25 PM EST Cayetano Tillman * HEENT Question Answer Date of Assessment Author JON (JUVE) JUVE 08/16/2025 8:00 AM Marina Mtz ra, RN * Presentation Question Answer Date of Assessment Author Lines and Tubes Intravenous access 08/12/2025 3:25 PM Cayetano Garcia Pre-Session Supine;Head of bed elevated;Lines intact 08/12/2025 3:25 PM Cayetano Garcia Post-Session Supine;Head of bed elevated;Lines intact;RN notified;Call light in reach 08/12/2025 3:25 PM Cayetano Garcia Post-Session Comments No alarm set. RN aware. 08/12/20 3:25 PM Cayetano Garcia * BMI (Calculated) Answer Date of Assessment Author 27.8 08/16/2025 5:38 AM Carmen Stanley * Percent Excess Weight Loss Answer Date of Assessment Author 0 08/07/2025 5:18 AM Amber Kilgore RN * Total Weight Change Percent Answer Date of Assessment Author 2222 08/16/2025 5:38 AM Carmen Stanley * Weight Change Since Preop Answer Date of Assessment Author 80.18 08/16/2025 5:38 AM Carmen Stanley * Initial Excess Weight Answer Date of Assessment Author -67.13 08/07/2025 5:18 AM Amber Kilgore RN * IBW in lbs (Bariatric) Answer Date of Assessment Author 148 08/07/2025 5:18 AM Amber Kilgore RN * Weight Change Since Last Visit Answer Date of Assessment Author 0.37 08/16/2025 5:38 AM Carmen Stanley * IBW in kg (Bariatric) Answer Date of Assessment Author 67.13 08/07/2025 5:18 AM Amber Kilgore RN * Percent of IBW Answer Date of Assessment Author 4,597.71 08/07/2025 5:18 AM Amber Kilgore RN * EBW (kg) Answer Date of Assessment Author 3,084.54 08/07/2025 5:18 AM Amber Kilgore RN * EBW (lbs) Answer Date of Assessment Author 3,077.19 08/07/2025 5:18 AM Amber Kilgore RN * Activity Management Answer Date of Assessment Author activity adjusted per tolerance 08/16/2025 2:43 PM Marina Velázquez RN * Progress Answer Date of Assessment Author improving 08/15/2025 10:20 PM Junior Canales RN * Infection Management Answer Date of Assessment Author aseptic technique maintained 08/16/2025 2:43 PM Marina Velázquez RN * Adaptive Equipment Use Answer Date of Assessment Author used independently 08/15/2025 10:20 AM Olga Prajapati RN * Supportive Measures Answer Date of Assessment Author active listening utilized;go al-setting facilitated;decision-making supported 08/15/2025 10:20 PM Amisha Canales RN * Oral Nutrition Promotion Answer Date of Assessment Author social interaction promoted 08/15/2025 10:20 AM Olga Schumacher RN * Pressure Reduction Techniques Answer Date of Assessment Author frequent weight shift encouraged 08/15/2025 10:2 0 PM Amisha Canales RN * Pain Management Interventions Answer Date of Assessment Author medication (see MAR) 08/16/2025 2:43 PM Marina Narvaez RN * Assistive Device Utilized Answer Date of Assessment Author crutches 08/15/2025 10:20 PM Junior Canales RN * Fever Reduction/Comfort Measures Answer Date of Assessment Author lightweight bedding 08/14/2025 9:04 PM Tamara Anglin RN * Sensory Stimulation Regulation Answer Date of Assessment Author quiet environment promoted;l ighting decreased;care clustered 08/15/2025 10:20 PM Amisha Canales RN * Complementary Therapy Answer Date of Assessment Author other (see comments) 08/12/2025 9:04 AM Klarissa Tapia RN * Trust Relationship/Rapport Answer Date of Assessment Author care explained;choices provi ded;emotional support provided;empathic listening provided;questions answered;questions encouraged;reassurance provided;thoughts/feelings acknowledged 08/15/2025 10:20 PM Amisha Canales RN * Pressure Reduction Devices Answer Date of Assessment Author pressure-redistributing mattress utilized 2024 10:20 AM Olga Schumacher RN * Elevated Risk Identified Answer Date of Assessment Author bleeding;fluid and electroly te imbalance;postoperative nausea and vomiting 08/11/2025 11:53 AM Nidia Polanco RN * Elevated Risk Identified Answer Date of Assessment Author infection;procedure-related injury;VTE (venous thromboembolism) 08/11/2025 11:53 AM Nidia Polanco RN * Diversional Activities Answer Date of Assessment Author television 08/15/2025 10:20 PM Junior Canales RN * Nutrition Interventions Answer Date of Assessment Author food preferences provided 08/15/2025 10:20 AM Olga Huerta RN * Infection Prevention Answer Date of Assessment Author environmental surveillance performed;equipment surfaces disinfected;hand hygiene promoted;personal protective equipment utilized;rest/sleep promoted;single patient room provided 08/15/2025 10:20 PM Aimsha Canales RN * Breathing Techniques/Airway Clearance Answer Date of Assessment Author other (see comments) 08/14/2025 7:04 AM Matilde Portillo RN * Outcome Evaluation Answer Date of Assessment Author Pt understands plan of care 08/13/2025 7:55 PM Gucci Fountain RN * Bowel Elimination Promotion Answer Date of Assessment Author adequate fluid intake promoted 08/15/2025 10:20 PM Amisha Canales RN * Spiritual Activities Assistance Answer Date of Assessment Author personal rituals encouraged 08/15/2025 10:20 PM Amisha Canales RN * Sleep/Rest Enhancement Answer Date of Assessment Author awakenings minimized;consist ent schedule promoted;regular sleep/rest pattern promoted;room darkened;noise level reduced 08/15/2025 10:20 PM Parviz Canales RN * Medication Review/Management Answer Date of Assessment Author medications reviewed 08/16/2025 2:43 PM Marina Narvaez RN * Seizure Precautions Answer Date of Assessment Author activity supervised 08/14/2025 7:04 AM Matilde Michael RN * Topical Inflammation Care Answer Date of Assessment Author other (see comments) 08/14/2025 7:04 AM Matilde Portillo RN * Self-Care Promotion Answer Date of Assessment Author BADL personal objects within reach;BADL personal routines maintained;adaptive equipment use encouraged;independence encouraged 08/15/2025 10:20 PM Amisha Canales RN * Safety Interventions Question Answer Date of Assessment Author Safety Precautions/Falls Reduction assistive device/personal items within reach 08/07/2025 5:22 AM Carol Kilgore RN * Goal: Anesthesia/Sedation Recovery Question Answer Date of Assessment Author Outcome Anesthesia/Sedation Recovery progressing 08/11/2025 1:20 PM Vidhya Pino RN * General Emergency Care CPG Interventions Question Answer Date of Assessment Author Coping Interventions care explained to patient/family prior to performing 08/09/2025 8:00 PM Yobany Greene, RN General Care Management calm environment promoted 08/09/2025 8:00 PM Yobany Greene, ORLIN * Discharge Needs Assessment Question Answer Date of Assessment Author Discharge Facility/Level of Care Needs 1-Home or Self Care 08/16/2025 2:00 PM Amisha López RN Equipment Needed After Discharge walker, rolling 08/16/2025 2:00 PM Amisha López RN Anticipated Changes Related to Illness none 08/16/2025 2:00 PM Amisha López RN Transportation Anticipated family or fri end will provide 08/09/2025 2:00 PM Amisha López RN Transportation Concerns none 08/09/20 2:00 PM Amisha López RN Concerns to be Addressed discharge planning 09/2024 2:00 PM Amsiha López RN Readmission Within the Last 30 Days no previous admission in last 30 days 08/16/2025 2:00 PM Amisha López RN Patient/Family Anticipated Services at Transition outpatient care 08/16/2025 2:00 PM Amisha López RN Patient/Family Anticipates Transition to home 08/09/2025 2:00 PM Amisha López RN Does the patient need discharge transport arranged? No 08/16/2025 2:00 PM Amisha López RN Has discharge transport been arranged? No 08/16/2025 2:00 PM Amisha López RN What day is the transport expected? [id number] 08/16/2025 2:00 PM Amisha López RN Who is requesting discharge planning? Provider 08/16/2025 2:00 PM EST Amisha Chang RN * Goal: Optimal Comfort and Wellbeing Question Answer Date of Assessment Author Problem Identified pain 08/11/2025 1:20 PM EST Vidhya Magdaleno RN Outcome Optimal Comfort and Wellbeing progressing 08/11/2025 1:20 PM Vidhya Pino RN Elevated Risk Identified pain 08/11/2025 1:20 PM Vidhya Pino, ORLIN * Goal: Minimized Risk/Safety Maintenance Question Answer Date of Assessment Author Outcome Minimized Risk and Safety progressing 08/11/2025 1:20 PM Vidhya Pino RN * Goal: Physiologic Homeostasis Question Answer Date of Assessment Author Outcome Physiologic Homeostasis progressing 08/11/2025 1:20 PM EST Vidhya Magdaleno RN * Acuity/Destination Question Answer Date of Assessment Author Patient Acuity 3 08/07/2025 5:21 AM EST Carol Garcia RN * PACU Interventions Question Answer Date of Assessment Author Warm Seiling Applied 08/11/2025 1:15 PM EST Vidhya Aleman RN Additional Comfort/Environmental Interventions Warm blanket 08/11/2025 1:15 PM Vidhya Pino RN * Weight Change 24 hrs Answer Date of Assessment Author .367 08/16/2025 5:38 AM EST Carmen Sun * Vital Signs Question Answer Date of Assessment Author Mean Arterial BP 93 08/11/2025 11:48 AM EST Nidia Hernandez RN * Precautions Question Answer Date of Assessment Author Left Lower Extremity Weight Bearing Status Protected weight-bearing as tolerated 08/12/2025 3:25 PM EST Cayetano Tillman Medical Precautions Fall precautions 08/12/2025 3:25 P M Cayetano Garcia * Sensation Question Answer Date of Assessment Author Light Touch: Right Upper Extremity Intact 2024 3:25 PM EST Cayetano Tillman * Sensation Question Answer Date of Assessment Author Light Touch: Left Upper Extremity Intact 025 3:25 PM Cayetano Garcia * Sensation Question Answer Date of Assessment Author Light Touch: Right Lower Extremity Intact 2024 3:25 PM Cayetano Garcia * Sensation Question Answer Date of Assessment Author Light Touch: Left Lower Extremity Mild impairment 08/12/2025 3:25 PM EST Cayetano Tillman * Bed Mobility Exam: Supine to Sit Question Answer Date of Assessment Author Level of Zapata Modified Zapata 08/12/2025 3:25 PM Cayetano Garcia Physical/Nonphysical Assist HOB elevated 08/12/2025 3:25 PM Cayetano Garcia * Bed Mobility Exam: Sit to Supine Question Answer Date of Assessment Author Level of Zapata Modified independence 08/12/2025 3:25 PM Cayetano Garcia Physical/Nonphysical Assist HOB elevated 08/12/2025 3:25 PM Cayetano Garcia * Transfer Exam: Sit to stand Question Answer Date of Assessment Author Level of Zapata Stand-by assist 08/12/2025 3:25 PM Cayetano Garcia Physical/Nonphysical Assist Verbal Cues;Minimal cues 08/12/2025 3:25 PM Cayetano Garcia Assistive Device Crutches, axillary 08/12/2025 3:25 PM Cayetano Garcia * Transfer Exam: Stand to Sit Question Answer Date of Assessment Author Level of Zapata Stand-by assist 08/12/2025 3:25 PM Cayetano Garcia Physical/Nonphysical Assist Verbal Cues;Minimal cues 08/12/2025 3:25 PM Cayetano Garcia Assistive Device Crutches, axillary 08/12/2025 3:25 PM Cayetano Garcia * Postural Appearance Question Answer Date of Assessment Author Posture WFL 08/12/2025 3:25 PM Cayetano Marquis * General Question Answer Date of Assessment Author Next PT Re-Assessment Date [id number] 08/12/2025 3:2 5 PM Cayetano Garcia Date of PT Session [id number] 08/12/2025 3:25 PM Cayetano Garcia Patient/Family Goals Statement Return home 08/12/2025 3:25 PM Cayetano Garcia * Plan Question Answer Date of Assessment Author Predicted Duration of Therapy 2 weeks 08/12/2025 3:25 PM Cayetano Garcia Discharge Recommendation Home with assistance 08/12/20 3:25 PM Cayetano Garcia Equipment Recommended Rolling walker;Crutches - provided 08/12/2025 3:25 PM Cayetano Garcia PT - OK to Discharge Yes 08/12/2025 3:25 PM Cayetano Esposito Planned PT Interventions Gait training;T ransfer training;Functional Mobility 08/12/2025 3:25 PM Cayetano Garcia Therapy Frequency 2 - 5 times per week 08/12/2025 3:25 PM Cayetano Garcia * PT Assessment Question Answer Date of Assessment Author Activity Limitations Inability to ambula te community distances 08/12/2025 3:25 PM Cayetano Garcia Participation Restrictions Home management;Community leisure;Self-care 08/12/2025 3:25 PM Cayetano Garcia History Profile 1 - 2 personal facto rs and/or comorbidities 08/12/2025 3:25 PM Cayetano Garcia Impairments Impaired gait dynamics/performance;Impai red sensation/sensory processing;Pain 08/12/2025 3:25 PM Cayetano Garcia Evaluation/Treatment Tolerance Other (Comment) 08/12/2025 3:25 PM Cayetano Garcia Diagnosis Gait deficits 08/12/2025 3:25 PM Cayetano Garcia Clinical Presentation Stable and/or uncomplicated characteristics 08/12/2025 3:25 PM Cayetano Garcia Clinical Decision Making Low complexity 025 3:25 PM Cayetano Garcia Rehab Potential Good, to achieve sta christina therapy goals 08/12/2025 3:25 PM Cayetano Garcia Activity Tolerance Endurance does not l imit participation in activity 08/12/2025 3:25 PM Cayetano Garcia * Ambulation Question Answer Date of Assessment Author Distance 50' + 150' 08/12/2025 3:25 PM Cayetano Marquis Device Rolling walker;Cheri riojasy crutches 08/12/2025 3:25 PM Cayetano Garcia Assistance Standby assist 08/12/2025 3:25 PM Cayetano Calderón Rid Ambulation Comments Pt ambulating 50' wi th RW and demonstrating good tolerance to mobility. Progressed to crutches and ambulated an additional 150' with SBA. See gait training for further details. 08/12/2025 3:25 PM Cayetano Garcia * BUNNY HL Score Question Answer Date of Assessment Author BUNNY GARCIA Daily Mobility Goal 7 08/16/2025 8:0 0 AM Marina Velázquez RN [facility] Daily Mobility Score 7 08/16/2025 8: 00 AM Marina Velázquez RN * Plan of Care Reviewed With Answer Date of Assessment Author patient 08/15/2025 10:20 PM Junior Canales RN * Pressure Injury Prevention (PIP) Interventions Question Answer Date of Assessment Author Pressure Reducing Devices Pillow 08/16/2025 8:00 AM Marina Velázquez RN Bed Type Acute Care Bed 08/16/2025 8:00 AM Marina Maya RN * Behavioral Expectations Question Answer Date of Assessment Author Behavioral Expectations revi ewed with patient/guardian and family/partner in care? Yes 08/07/2025 4:41 PM Judy Akhtar RN * Vital Signs Question Answer Date of Assessment Author BP 127/76 08/16/2025 11:10 AM Emiliano Silverman Flowsheet In Temp 97.5 08/16/2025 11:10 AM EST Quentin orr Doc Flowsheet In Pulse 71 08/16/2025 11:10 AM Emiliano Silverman Flowsheet In Resp 18 08/16/2025 3:16 AM Amisha Canales RN Heart Rate Source Monitor 08/11/2025 1:35 PM Vidhya Pino RN Cardiac Rhythm NSR 08/11/2025 1:15 PM Vidhya Poole RN MAP (mmHg) 93 08/16/2025 11:10 AM Emiliano Silverman Flowsheet In * Oxygen Therapy Question Answer Date of Assessment Author SpO2 96 08/16/2025 11:10 AM Emiliano Silverman Flowsheet In O2 Flow Rate (L/min) 6 08/11/2025 1:15 PM Vidhya Patel RN Oxygen Therapy None 08/15/2025 7:29 PM Amisha Mckeon Cro, RN O2 Delivery Method Face tent 08/11/2025 1:15 PM Vidhya Pino RN Oximetry Probe Site Location Right Digit 08/07/2025 2:09 PM Amada Galaviz * Patient Observation Question Answer Date of Assessment Author Patient Observations asked for signout a t this time 08/11/2025 1:35 PM Vidhya Pino RN * Neurological Question Answer Date of Assessment Author Neuro (WDL) WDL 08/11/2025 4:00 AM EST Kayla Vaz RN * Gastrointestinal Question Answer Date of Assessment Author Gastrointestinal ([facility] 08/16/2025 8:00 AM EST Marina Madison RN * Peripheral Vascular Question Answer Date of Assessment Author Peripheral Vascular ([facility] 08/16/2025 8:00 AM EST Marina Madison RN LLE Edema Non-pitting 08/13/2025 4:00 AM EST Amada Leger RN Capillary Refill Less than/equal to 2 seconds (All extremities) 08/15/2025 4:00 PM EST Hatfull, Meena L, FIBERGLASS 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 Pulses L pedal 08/15/2025 4:00 PM EST Hatfu ll, Meena L, F[employer]ERGLASS 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 Cyanosis None 08/15/2025 4:00 PM EST Hatfu ll, Meena L, FIBERGLASS 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 Edema Left lower extremity 08/14/2025 3:10 PM E Matilde Nick RN PVS Additional Assessments LLE 08/11/2025 1:15 PM EST Vidhya Magdaleno, RN * RUE Neurovascular Assessment Question Answer Date of Assessment Author R Radial Pulse +2 08/15/2025 4:00 PM EST Hat full, Meena L, [employer]ERGLASS 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 * LUE Neurovascular Assessment Question Answer Date of Assessment Author L Radial Pulse +2 08/15/2025 4:00 PM EST Hat full, Meena L, F[employer]ERGLASS 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 * RLE Neurovascular Assessment Question Answer Date of Assessment Author R Pedal Pulse +2 08/15/2025 4:00 PM EST Hatf ull, Meena L, [employer]ERGLASS 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 * LLE Neurovascular Assessment Question Answer Date of Assessment Author LLE Capillary Refill Less than/equal to 2 seconds 08/14/2025 3:10 PM EST Matilde Ornelas RN LLE Color Unable to assess 08/12/2025 4:41 PM EST Klarissa Stephens RN LLE Temperature/Moisture Warm 08/13/2025 4:00 PM EST Robert Chaidez RN L Pedal Pulse +2 08/15/2025 4:00 PM EST Hatf ull, Meena L, [employer]ERGLASS 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 LLE Movement Present 08/13/2025 8:00 AM Valerie Baez RN * Musculoskeletal Question Answer Date of Assessment Author RUE Full movement 08/11/2025 4:00 PM Garrett Jones RN RLE Full movement 08/11/2025 4:00 PM Garrett Jones RN LUE Full movement 08/11/2025 4:00 PM Garrett Jones RN LLE Surgery 08/16/2025 8:00 AM Marina Mtz ra, RN Musculoskeletal (WDL) X 08/16/2025 8:00 AM Marina Velázquez RN * Urine Assessment Question Answer Date of Assessment Author Urinary Incontinence No 08/15/2025 4:00 PM Meena Lynn LPN * Psychosocial Question Answer Date of Assessment Author Psychosocial (JUSTYNAL) WDL 08/16/2025 8:00 AM Marina Velázquez RN Length of Time/Family Visitation 0-5 min 08/11/20 4:00 AM Kayla Preston RN * Unmeasured Output Question Answer Date of Assessment Author Unmeasured Stool Occurrence (hourly total) 1 08/15/2025 12:33 AM Willian Heredia * Intake Question Answer Date of Assessment Author [address] 08/13/2025 8:20 AM Valerie Baez RN * Output (mL) Question Answer Date of Assessment Author Urine Color Yellow/straw 08/15/2025 7:29 PM EST Emers sarmad, Carmen Urine Appearance Clear 08/15/2025 7:29 PM EST Carmen Marin Urine Odor No odor 08/15/2025 7:29 PM EST Emers on, Carmen Stool Amount Small 08/15/2025 12:33 AM EST Willian Jones Bowel Incontinence No 08/15/2025 12:33 AM Willian Kerr * Pozo Fall Risk Question Answer Date of Assessment Author History of Falling, Immediat e or Within 3 Months 0 08/16/2025 8:00 AM Marina Velázquez RN Secondary Diagnosis 15 08/16/2025 8:00 AM Marina Wilson, jointer operator Aid 0 08/16/2025 8:00 AM Marina Maya RN Intravenous Therapy/Heparin Lock 0 08/16/20 8:00 AM Marina Velázquez RN Gait/Transferring 10 08/16/2025 8:00 AM Marina Velázquez RN Mental Status 0 08/16/2025 8:00 AM Marina Narvaez RN Pozo Fall Risk Score 25 08/16/2025 8:00 AM Marina Velázquez RN * Garry Scale Question Answer Date of Assessment Author Sensory Perceptions 3 08/16/2025 8:00 AM Marina Wilson RN Moisture 3 08/16/2025 8:00 AM Marina Mtz ra, RN Activity 3 08/16/2025 8:00 AM Marina Mtz ra, RN Mobility 3 08/16/2025 8:00 AM Marina Mtz ra, RN Nutrition 4 08/16/2025 8:00 AM Marina Mtz ra, RN Friction and Shear 3 08/16/2025 8:00 AM Marina Velázquez RN Garry Scale Score 19 08/16/2025 8:00 AM Marina Velázquez RN * BSA (Calculated - sq m) Answer Date of Assessment Author 1.95 08/16/2025 5:38 AM Carmen Stanley * BMI (Calculated) Answer Date of Assessment Author 27.69 08/16/2025 5:38 AM Carmen Stanley * Cardiac Question Answer Date of Assessment Author Cardiac ([facility] 08/16/2025 8:00 AM Marina Narvaez RN * Respiratory Question Answer Date of Assessment Author Respiratory ([facility]) [facility] 08/16/2025 8:00 AM Marina Velázquez RN * RLE ROM Assessment Question Answer Date of Assessment Author RLE Assessment [facility] 08/12/2025 3:25 PM EST Cayetano Davis * LLE ROM Assessment Question Answer Date of Assessment Author LLE Assessment [facility] 08/12/2025 3:25 PM EST Cayetano Davis * Vitals Question Answer Date of Assessment Author Temp src Oral 08/15/2025 7:29 PM Carmen Paulson Weight 2828.94 08/16/2025 5:38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 8:00 PM Alicia Lipscomb RN * Confusion Assessment Method (CAM) Question Answer Date of Assessment Author Acute Onset and Fluctuating Course (1A) No 08/16/2025 8:00 AM EST Mraina Madison RN * Confusion Assessment Method-ICU (CAM-ICU/PCAM-ICU) Question Answer Date of Assessment Author Feature 1: Acute Onset or Fl uctuating Course Negative 08/11/2025 4:00 AM Kayla Preston RN * Feature 3: Altered Level of Consciousness Answer Date of Assessment Author Negative 08/16/2025 8:00 AM EST Marina Madison RN * Overall CAM-ICU/PCAM-ICU Answer Date of Assessment Author Negative 08/11/2025 4:00 AM EST Grant Vaz RN * Critical-Care Pain Observation Tool Question Answer Date of Assessment Author Facial Expression 0 08/11/2025 1:15 PM EST Vidhya Magdaleno RN Body Movements 0 08/11/2025 1:15 PM EST Vidhya Baires RN Vocalization (Extubated Patients) 0 08/11/2025 1:15 PM EST Vidhya Magdaleno RN Muscle Tension 0 08/11/2025 1:15 PM EST Vidhya Baires RN Critical-Care Pain Observati on Score 0 08/11/2025 1:15 PM EST Vidhya Magdaleno RN * Sedation Scales Question Answer Date of Assessment Author Sedation Scale Used Morse Agitation Sedation Scale 08/16/2025 8:00 AM Marina Velázquez RN RASS 0 08/16/2025 8:00 AM EST Marina Jason ra, RN Pasero Opioid-Induced Sedation Scale (POSS) 1 08/16/2025 8:00 AM EST Yasmin Madison RN * Urine Output/Assessment Question Answer Date of Assessment Author Urine 300 08/16/2025 5:38 AM EST Amisha Velásquez RN Unmeasured Urine Occurrence 1 08/15/2025 6: 00 AM EST Tamara Lou RN Urine Amount Medium 08/11/2025 5:06 PM EST Garrett Hirsch RN * Stool Output/Assessment Question Answer Date of Assessment Author Most Recent BM Date [id number] 08/11/2025 9:30 AM Garrett Hall RN Stool Appearance Unable to assess 08/11/2025 9:30 Garrett Ruiz RN * ACS Disability Status Question Answer Date of Assessment Author Are you deaf or do you have serious difficulty hearing? No 08/16/2025 2:53 PM Marina Velázquez RN Are you blind or do you have serious difficulty seeing, even when wearing glasses? No 08/16/2025 2:53 PM Yasmin Velázquez RN Because of a physical, menta l, or emotional condition, do you have serious difficulty concentrating, remembering, or making decisions? (5 years old or older) No 08/16/2025 2:53 PM Carmelo Velázquez RN Do you have serious difficul ty walking or climbing stairs? No 08/16/2025 2:53 PM Marina Velázquez RN Do you have serious difficul ty dressing or bathing? No 08/16/2025 2:53 PM Marina Velázquez RN * Fall Risk Calculated Score Answer Date of Assessment Author Sánchez Mendenhall 08/16/2025 8:00 AM Marina Velázquez RN * Patient Specific Goals Question Answer Date of Assessment Author Patient/Family-Specific Goals (Include Timeframe) patient will remain free from falls/injury this shift. 08/16/2025 8:00 AM Marina Velázquez RN Individualized Care Needs safety 08/16/2025 8:00 AM Marina Velázquez RN Anxieties, Fears or Concerns none stated 08/16/2025 8:00 AM Marina Velázquez RN * Delirium Assessment Question Answer Date of Assessment Author Delirium Prevention & Management Yes 08/16/2025 8:00 AM Marina Velázquez RN Delirium Prevention & Management: Early Mobility Ambulate to extent of patient's ability;Up to chair for meals;Out of room if possible;Educate patient and family about the benfits of early mobility in the hospital 08/16/2025 8:00 AM Marina Velázquez RN Delirium Prevention & Management: Cognitive Engagement Familiar objects from home provided;Optimize pain and other medication management;Emotional support provided;Environmental consistency promoted;Delirium prevention education provided to patient and family 08/16/2025 8:00 AM Marina Velázquez RN Delirium Prevention & Management: Optimize Sleep/Wake Cycles Calming techniques provided;Natural light during the day;Lighting decreased at night;Environmental noise reduced at night;Encourage TV off at night;Bedtime routine promoted;Cluster care to decrease awakenings;Educate patient and family about optimizing sleep 08/16/2025 8:00 AM Marina Velázquez RN Delirium Scale Used Confusion Assessment Method 08/16/2025 8:00 AM Marina Velázquez RN * Unplanned Readmission Scores Question Answer Date of Assessment Author Unplanned Readmission Score 10.41 08/16/2025 4: 00 PM Amna Cespedes * F = Family/Partner in Care Engagement and Empowerment Question Answer Date of Assessment Author How did you engage the family/partner in care? No family/client care coordinator present at this time. Will reevaluate 08/11/2025 4:00 AM Kayla Preston RN How did the family/partner in care participate? No family/client care coordinator present at this time. Will reevaluate 08/11/2025 4:00 AM Kayla Preston RN * Joann Coma Scale Numeric Answer Date of Assessment Author 15 08/16/2025 8:00 AM Marina Velázquez RN * Elevate heels task - custom formula Answer Date of Assessment Author 1 08/16/2025 8:00 AM Marina Velázquez RN * Neurological Question Answer Date of Assessment Author Neuro Pertinent Negatives Alert and oriented x 4;Speech clear 08/07/2025 5:23 AM Carol Kilgore RN Neuro ([facility]) WDL 08/07/2025 5:23 AM Carol Poe RN * Skin Color/Condition Question Answer Date of Assessment Author Skin Comments See media 08/07/2025 8:00 AM Reina Parrish RN Skin Color/Condition (WD) X 08/07/2025 8:0 0 AM Reina Arredondo RN * Cardiac Question Answer Date of Assessment Author Cardiac Pertinent Negatives Heart rate regular 08/07/2025 5:23 AM Carol Kilgore R N Cardiac (WD) WDL 08/07/2025 5:23 AM Carol Marcelino RN * Respiratory Question Answer Date of Assessment Author Respiratory Pertinent Negatives Respirations regular/unlabored 08/07/2025 5:23 AM Carol Kilgore RN Respiratory (WDL) WDL 08/07/2025 5:2 3 AM Carol Kilgore RN * Musculoskeletal Question Answer Date of Assessment Author Musculoskeletal Pertinent Negatives Moves all extremities 08/07/2025 8:00 AM Reina Arredondo RN Musculoskeletal (WDL) X 08/07/2025 8:00 AM Reina Arredondo RN * Vitals Timer Question Answer Date of Assessment Author Update Vitals Alert Interval 240 08/07/2025 2 :09 PM EST Amada Mendenhall Restart Vitals Timer Yes 08/16/2025 3:16 AM E Amisha Rodríguez RN Restart Vitals Timer Yes 08/07/2025 2:09 PM E Amada Chino * Respiratory Assessment Question Answer Date of Assessment Author Respiratory (WDL) WDL 08/11/2025 1:15 PM EST Vidhya Magdaleno RN * Integumentary Question Answer Date of Assessment Author Integumentary (WD) X 08/11/2025 1:15 PM ES Vidhya Amaya, RN * Modified Ziyad Question Answer Date of Assessment Author Activity 2 08/11/2025 1:30 PM EST Vidhya Aleman RN Respiration 2 08/11/2025 1:30 PM EST Vidhya Aleman, RN Hemodynamic Stability 2 08/11/2025 1:30 PM EST Vidhya Magdaleno, RN Consciousness 1 08/11/2025 1:30 PM EST Vidhya Holder, RN Oxygen Saturation 2 08/11/2025 1:30 PM EST Vidhya Magdaleno RN Modified Ziyad Score 13 08/11/2025 1:30 PM EST Vidhya Magdaleno RN Pain 2 08/11/2025 1:30 PM EST Vidhya Aleman, RN Emetic Symptoms 2 08/11/2025 1:30 PM EST Vidhya Florez RN * Hourly Rounding Question Answer Date of Assessment Author Activity Assistance Stand by assist 08/16/2025 8:00 AM Marina Velázquez RN Toileting Independent 08/16/2025 8:00 AM Marina Mtz ra, RN Call Light Oriented to call light;Call light present and within reach 08/16/2025 8:00 AM Marina Velázquez RN Rest/ Sleep No problem identified 08/16/2025 8:00 AM Marina Velázquez RN Rest/ Sleep Enhancement Care clustered t o minimize awakenings 08/16/2025 8:00 AM Marina Velázquez RN Completed Hourly Rounding Yes 08/16/2025 8:00 AM Marina Velázquez RN Plan of Care Reviewed With Patient 08/16/2025 8:00 AM Marina Velázquez RN * Standardized Assessments Question Answer Date of Assessment Author Standardized Assessments [facility] 6-Clicks Mobility Assessment 08/12/2025 3:25 PM Cayetano Garcia * Jensen/Cubbin Scale Question Answer Date of Assessment Author Age (years) 3 08/10/2025 8:00 PM Kayla Preston RN Hemodynamics 4 08/10/2025 8:00 PM Kayla Preston RN Weight/Tissue Viability 3 08/10/2025 8:00 P M Kayla Pretson RN Respiration 4 08/10/2025 8:00 PM Kayla Preston RN Past Medical History 4 08/10/2025 8:00 PM Kayla Preston RN Oxygen Requirments 4 08/10/2025 8:00 PM Kayla Preston RN General Skin Condition 4 08/10/2025 8:00 PM Kayla Preston RN Nutrition 4 08/10/2025 8:00 PM Kayla Preston RN Medical Condition 4 08/10/2025 8:00 PM Kayla Preston RN Incontinence 4 08/10/2025 8:00 PM Kayla Preston RN Mobility 4 08/10/2025 8:00 PM Kayla Preston RN Hygiene 4 08/10/2025 8:00 PM Kayla Preston RN Deduction if patient has bee n in surgery or transported to CT, MRI, or HBOT during last 48 hours 0 08/10/2025 8:00 PM Kayla Preston RN Deduction if patient has req uired blood or clotting factors during last 24 hours 0 08/10/2025 8:00 PM Kayla Preston RN Deduction if patient has hyp othermia of 35 C or under (core temp) 0 08/10/2025 8:00 PM Kayla Preston R N Jackson/Jazmin Pressure Risk Score 45 2024 8:00 PM Kayla Preston RN * Elopement Risk Screen Question Answer Date of Assessment Author Does the patient exhibit any of the following behaviors? No 08/16/2025 8:00 AM Panda Velázquez RN Does the patient have a cour t ordered legal guardian? Yes 08/16/2025 8:00 AM Madisyn Velázquez RN * Manual Muscle Testing - LLE Question Answer Date of Assessment Author Manual Muscle Testing [facility] 08/12/2025 3:25 PM Cayetano Garcia * Manual Muscle Testing - RUE Question Answer Date of Assessment Author Manual Muscle Testing - RUE [facility] 08/12/2025 3: 25 PM Cayetano Garcia * Manual Muscle Testing - LUE Question Answer Date of Assessment Author Manual Muscle Testing - LUE [facility] 08/12/2025 3: 25 PM Cayetano Garcia * Participants in Care Question Answer Date of Assessment Author Family/Caregiver Present N 08/12/2025 3:25 PM Cayetano Garcia * Dynamic Sitting Balance Question Answer Date of Assessment Author Level of Assistance Independent 08/12/2025 3:25 PM Cayetano Mercedes Dynamic Sitting-Balance Support No upper extremity support;Feet supported 08/12/2025 3:25 PM Cayetano Garcia * Cognition Question Answer Date of Assessment Author Mood/Behavior Alert 08/12/2025 3:25 PM Cayetano Garcia Orientation Level Oriented X4 08/12/2025 3:2 5 PM Cayetano Garcia Overall Cognitive Status WFL 025 3:25 PM Cayetano Garcia Arousal/Alertness Appropriate response s to stimuli 08/12/2025 3:25 PM Cayetano Garcia Method of Communication Verbal 08/12/20 3:25 PM Cayetano Garcia Single Step Commands Consistently 08/12/2025 3:25 PM Cayetano Garcia Multi-Step Commands Consistently 08/12/2025 3 :25 PM Cayetano Garcia * Static Sitting Balance Question Answer Date of Assessment Author Static Sitting-Level of Assistance Independent 08/12/2025 3:25 PM Cayetano Garcia Static Sitting-Balance Support No upper extremity support;Feet supported 08/12/2025 3:25 PM Cayetano Garcia * Static Standing Balance Question Answer Date of Assessment Author Static Standing-Level of Assistance Supervision 08/12/2025 3:25 PM Cayetano Garcia Static Standing-Balance Support Right upper extremity support;Left upper extremity support 08/12/2025 3:25 PM Cayetano Garcia * C-SSRS (Frequent Screener) Question Answer Date of Assessment Author Is patient awake, alert, and able/willing to answer questions appropriately? Yes 08/16/2025 8:00 AM Marina Velázquez RN 1. Wish to be (Past 1 Month) No 8:00 AM Marina Velázquez RN 2. Non-Specific Active Suici ramsey Thoughts (Past 1 Month) No 08/16/2025 8:00 AM Madisyn Velázquez RN 6. Suicidal Behavior (Lifetime) No 8:00 AM Marina Velázquez RN * Discharge Planning Continued Question Answer Date of Assessment Author Transportation Home at Discharge Family/Friend will Provide 08/16/2025 2:00 PM Amisha López RN * [facility] 6-Clicks Mobility Assessment Question Answer Date of Assessment Author Difficulty patient has turni ng over in bed (including adjusting bedclothes, sheets, and blankets)? 4 08/12/2025 3:25 PM Cayetano Garcia Difficulty patient has sitti ng down on and standing up from a chair with arms (wheelchair, bedside commode, etc.)? 4 08/12/2025 3:25 PM Cayetano Garcia Difficulty patient has movin g from lying on back to sitting on the side of the bed? 4 08/12/2025 3:25 PM Cayetano Garcia How much help does the patie nt need moving to and from a bed to a chair (including a wheelchair)? 4 08/12/2025 3:25 PM Moni Garcia How much help does the patie nt need to walk in hospital room? 4 08/12/2025 3:25 PM Cayetano Garcia How much help does the patie nt need climbing 3-5 steps with a railing? 3 08/12/2025 3:25 PM [facility] Total 23 08/12/2025 3:25 PM Cayetano Garcia * Are you deaf or do you have serious difficulty hearing? Answer Date of Assessment Author No 08/16/2025 2:53 PM Marina Veláqzuez RN * Are you blind or do you have serious difficulty seeing, even when wearing glasses? Answer Date of Assessment Author No 08/16/2025 2:53 PM Marina Velázquez RN * Do you have serious difficulty walking or climbing stairs? Answer Date of Assessment Author No 08/16/2025 2:53 PM Marina Velázquez RN * Do you have serious difficulty dressing or bathing? Answer Date of Assessment Author No 08/16/2025 2:53 PM Marina Velázquez RN * PT Therapeutic Procedures Time Entry Question Answer Date of Assessment Author Gait Training Time Entry 13 08/12/2025 3:25 PM Cayetano Garcia * HEENT Question Answer Date of Assessment Author HEENT (WDL) WDL 08/16/2025 8:00 AM Marina Mtz ra, RN * Presentation Question Answer Date of Assessment Author Lines and Tubes Intravenous access 08/12/2025 3:25 PM Cayetano Garcia Pre-Session Supine;Head of bed elevated;Lines intact 08/12/2025 3:25 PM Cayetano Garcia Post-Session Supine;Head of bed elevated;Lines intact;RN notified;Call light in reach 08/12/2025 3:25 PM Cayetano Garcia Post-Session Comments No alarm set. RN aware. 08/12/20 3:25 PM Cayetano Garcia * Activity Management Answer Date of Assessment Author activity adjusted per tolerance 08/16/2025 2:43 PM Marina Velázquez RN * Infection Management Answer Date of Assessment Author aseptic technique maintained 08/16/2025 2:43 PM Marina Velázquez RN * Adaptive Equipment Use Answer Date of Assessment Author used independently 08/15/2025 10:20 AM Olga Prajapati RN * Supportive Measures Answer Date of Assessment Author active listening utilized;go al-setting facilitated;decision-making supported 08/15/2025 10:20 PM Amisha Canales RN * Oral Nutrition Promotion Answer Date of Assessment Author social interaction promoted 08/15/2025 10:20 AM Olga Schumacher RN * Pressure Reduction Techniques Answer Date of Assessment Author frequent weight shift encouraged 08/15/2025 10:2 0 PM Amisha Canales RN * Pain Management Interventions Answer Date of Assessment Author medication (see MAR) 08/16/2025 2:43 PM Marina Narvaez RN * Assistive Device Utilized Answer Date of Assessment Author crutches 08/15/2025 10:20 PM Junior Canales RN * Fever Reduction/Comfort Measures Answer Date of Assessment Author lightweight bedding 08/14/2025 9:04 PM Tamara Anglin RN * Sensory Stimulation Regulation Answer Date of Assessment Author quiet environment promoted;l ighting decreased;care clustered 08/15/2025 10:20 PM Amisha Canales RN * Complementary Therapy Answer Date of Assessment Author other (see comments) 08/12/2025 9:04 AM Klarissa Tapia RN * Trust Relationship/Rapport Answer Date of Assessment Author care explained;choices provi ded;emotional support provided;empathic listening provided;questions answered;questions encouraged;reassurance provided;thoughts/feelings acknowledged 08/15/2025 10:20 PM Amisha Canales RN * Pressure Reduction Devices Answer Date of Assessment Author pressure-redistributing mattress utilized 2024 10:20 AM Olga Schumacher RN * Elevated Risk Identified Answer Date of Assessment Author bleeding;fluid and electroly te imbalance;postoperative nausea and vomiting 08/11/2025 11:53 AM Nidia Polanco RN * Elevated Risk Identified Answer Date of Assessment Author infection;procedure-related injury;VTE (venous thromboembolism) 08/11/2025 11:53 AM Nidia Polanco RN * Diversional Activities Answer Date of Assessment Author television 08/15/2025 10:20 PM EST Christen, E clarita L, RN * Nutrition Interventions Answer Date of Assessment Author food preferences provided 08/15/2025 10:20 AM Olga Huerta RN * Infection Prevention Answer Date of Assessment Author environmental surveillance performed;equipment surfaces disinfected;hand hygiene promoted;personal protective equipment utilized;rest/sleep promoted;single patient room provided 08/15/2025 10:20 PM Amisha Canales RN * Breathing Techniques/Airway Clearance Answer Date of Assessment Author other (see comments) 08/14/2025 7:04 AM Matilde Portillo RN * Outcome Evaluation Answer Date of Assessment Author Pt understands plan of care 08/13/2025 7:55 PM Gucci Fountain RN * Bowel Elimination Promotion Answer Date of Assessment Author adequate fluid intake promoted 08/15/2025 10:20 PM Amisha Canales RN * Spiritual Activities Assistance Answer Date of Assessment Author personal rituals encouraged 08/15/2025 10:20 PM Amisha Canales RN * Sleep/Rest Enhancement Answer Date of Assessment Author awakenings minimized;consist ent schedule promoted;regular sleep/rest pattern promoted;room darkened;noise level reduced 08/15/2025 10:20 PM Parviz Canales RN * Medication Review/Management Answer Date of Assessment Author medications reviewed 08/16/2025 2:43 PM Marina Narvaez RN * Seizure Precautions Answer Date of Assessment Author activity supervised 08/14/2025 7:04 AM Matilde Michael RN * Topical Inflammation Care Answer Date of Assessment Author other (see comments) 08/14/2025 7:04 AM Matilde Portillo RN * Self-Care Promotion Answer Date of Assessment Author BADL personal objects within reach;BADL personal routines maintained;adaptive equipment use encouraged;independence encouraged 08/15/2025 10:20 PM Amisha Canales RN * Safety Interventions Question Answer Date of Assessment Author Safety Precautions/Falls Reduction assistive device/personal items within reach 08/07/2025 5:22 AM Carol Kilgore RN * Goal: Anesthesia/Sedation Recovery Question Answer Date of Assessment Author Outcome Anesthesia/Sedation Recovery progressing 08/11/2025 1:20 PM Vidhya Pino RN * General Emergency Care CPG Interventions Question Answer Date of Assessment Author Coping Interventions care explained to patient/family prior to performing 08/09/2025 8:00 PM Yobany Greene, RN General Care Management calm environment promoted 08/09/2025 8:00 PM Yobany Greene, ORLIN * Discharge Needs Assessment Question Answer Date of Assessment Author Discharge Facility/Level of Care Needs 1-Home or Self Care 08/16/2025 2:00 PM Amisha López RN Equipment Needed After Discharge walker, rolling 08/16/2025 2:00 PM Amisha Lóepz RN Anticipated Changes Related to Illness none 08/16/2025 2:00 PM Amisha López RN Transportation Anticipated family or fri end will provide 08/09/2025 2:00 PM Amisha López RN Transportation Concerns none 08/09/20 2:00 PM Amisha López RN Concerns to be Addressed discharge planning 09/2024 2:00 PM Amisha López RN Readmission Within the Last 30 Days no previous admission in last 30 days 08/16/2025 2:00 PM Amisha López RN Patient/Family Anticipated Services at Transition outpatient care 08/16/2025 2:00 PM Amisha López RN Patient/Family Anticipates Transition to home 08/09/2025 2:00 PM Amisha López RN Does the patient need discharge transport arranged? No 08/16/2025 2:00 PM Amisha López RN Has discharge transport been arranged? No 08/16/2025 2:00 PM Amisha López RN What day is the transport expected? [id number] 08/16/2025 2:00 PM Amisha López RN Who is requesting discharge planning? Provider 08/16/2025 2:00 PM Amisha López RN * Goal: Optimal Comfort and Wellbeing Question Answer Date of Assessment Author Problem Identified pain 08/11/2025 1:20 PM Vidhya Pino RN Outcome Optimal Comfort and Wellbeing progressing 08/11/2025 1:20 PM Vidhya Pino RN Elevated Risk Identified pain 08/11/2025 1:20 PM Vidhya Pino RN * Goal: Minimized Risk/Safety Maintenance Question Answer Date of Assessment Author Outcome Minimized Risk and Safety progressing 08/11/2025 1:20 PM Vidhya Pino, RN * Goal: Physiologic Homeostasis Question Answer Date of Assessment Author Outcome Physiologic Homeostasis progressing 08/11/2025 1:20 PM Vidhya Pino, RN * PACU Interventions Question Answer Date of Assessment Author Warm Seiling Applied 08/11/2025 1:15 PM Vidhya De Jesus, RN Additional Comfort/Environmental Interventions Warm blanket 08/11/2025 1:15 PM Vidhya Pino, RN * Precautions Question Answer Date of Assessment Author Left Lower Extremity Weight Bearing Status Protected weight-bearing as tolerated 08/12/2025 3:25 PM Cayetano Garcia Medical Precautions Fall precautions 08/12/2025 3:25 P M Cayetano Garcia * Sensation Question Answer Date of Assessment Author Light Touch: Right Upper Extremity Intact 2024 3:25 PM Cayetano Garcia * Sensation Question Answer Date of Assessment Author Light Touch: Left Upper Extremity Intact 025 3:25 PM Cayetano Garcia * Sensation Question Answer Date of Assessment Author Light Touch: Right Lower Extremity Intact 2024 3:25 PM Cayetano Garcia * Sensation Question Answer Date of Assessment Author Light Touch: Left Lower Extremity Mild impairment 08/12/2025 3:25 PM Cayetano Garcia * Bed Mobility Exam: Supine to Sit Question Answer Date of Assessment Author Level of Zapata Modified Zapata 08/12/2025 3:25 PM Cayetano Garcia Physical/Nonphysical Assist HOB elevated 08/12/2025 3:25 PM Cayetano Garcia * Bed Mobility Exam: Sit to Supine Question Answer Date of Assessment Author Level of Zapata Modified independence 08/12/2025 3:25 PM Cayetano Garcia Physical/Nonphysical Assist HOB elevated 08/12/2025 3:25 PM Cayetano Garcia * Transfer Exam: Sit to stand Question Answer Date of Assessment Author Level of Zapata Stand-by assist 08/12/2025 3:25 PM Cayetano Garcia Physical/Nonphysical Assist Verbal Cues;Minimal cues 08/12/2025 3:25 PM Cayetano Garcia Assistive Device Crutches, axillary 08/12/2025 3:25 PM Cayetano Garcia * Transfer Exam: Stand to Sit Question Answer Date of Assessment Author Level of Zapata Stand-by assist 08/12/2025 3:25 PM Cayetano Garcia Physical/Nonphysical Assist Verbal Cues;Minimal cues 08/12/2025 3:25 PM Cayetano Garcia Assistive Device Crutches, axillary 08/12/2025 3:25 PM Cayetano Garcia * Postural Appearance Question Answer Date of Assessment Author Posture WFL 08/12/2025 3:25 PM Cayetano Marquis * General Question Answer Date of Assessment Author Next PT Re-Assessment Date [id number] 08/12/2025 3:2 5 PM Cayetano Garcia Date of PT Session [id number] 08/12/2025 3:25 PM Cayetano Garcia Patient/Family Goals Statement Return home 08/12/2025 3:25 PM Cayetano Garcia * Plan Question Answer Date of Assessment Author Predicted Duration of Therapy 2 weeks 08/12/2025 3:25 PM Cayetano Garcia Discharge Recommendation Home with assistance 08/12/20 3:25 PM Cayetano Garcia Equipment Recommended Rolling walker;Crutches - provided 08/12/2025 3:25 PM Cayetano Garcia PT - OK to Discharge Yes 08/12/2025 3:25 PM Cayetano Esposito Planned PT Interventions Gait training;T ransfer training;Functional Mobility 08/12/2025 3:25 PM Cayetano Garcia Therapy Frequency 2 - 5 times per week 08/12/2025 3:25 PM Cayetano Garcia * PT Assessment Question Answer Date of Assessment Author Activity Limitations Inability to ambula te community distances 08/12/2025 3:25 PM Cayetano Garcia Participation Restrictions Home management;Community leisure;Self-care 08/12/2025 3:25 PM Cayetano Garcia History Profile 1 - 2 personal facto rs and/or comorbidities 08/12/2025 3:25 PM Cayetano Garcia Impairments Impaired gait dynamics/performance;Impai red sensation/sensory processing;Pain 08/12/2025 3:25 PM Cayetano Garcia Evaluation/Treatment Tolerance Other (Comment) 08/12/2025 3:25 PM Cayetano Garcia Diagnosis Gait deficits 08/12/2025 3:25 PM Cayetano Garcia Clinical Presentation Stable and/or uncomplicated characteristics 08/12/2025 3:25 PM Cayetano Garcia Clinical Decision Making Low complexity 2 025 3:25 PM Cayetano Garcia Rehab Potential Good, to achieve sta christina therapy goals 08/12/2025 3:25 PM Cayetano Garcia Activity Tolerance Endurance does not l imit participation in activity 08/12/2025 3:25 PM Cayetano Garcia * Ambulation Question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 08/11/2025 4:00 PM Garrett Ko RN Manual Dual Sign Off 2nd RN Jessi RN 08/11/2025 4:00 AM Kayla Preston RN Skin Tone Light 08/11/2025 4:00 PM Garrett Ko RN Integumentary (WDL) X 08/16/2025 8 :00 AM Marina Velázquez RN Redness Location LLE 08/11/2025 8:00 PM Alicia Lipscomb RN * Confusion Assessment Method (CAM) Question Answer Date of Assessment Author Acute Onset and Fluctuating Course (1A) No 08/16/2025 8:00 AM Marina Velázquez RN * Confusion Assessment Method-ICU (CAM-ICU/PCAM-ICU) Question Answer Date of Assessment Author Feature 1: Acute Onset or Fl uctuating Course Negative 08/11/2025 4:00 AM Kayla Preston RN * Feature 3: Altered Level of Consciousness Answer Date of Assessment Author Negative 08/16/2025 8:00 AM Marina Velázquez RN * Overall CAM-ICU/PCAM-ICU Answer Date of Assessment Author Negative 08/11/2025 4:00 AM Grant Preston RN * Critical-Care Pain Observation Tool Question Answer Date of Assessment Author Facial Expression 0 08/11/2025 1:15 PM Vidhya Pino RN Body Movements 0 08/11/2025 1:15 PM Vidhya Poole RN Vocalization (Extubated Patients) 0 08/11/2025 1:15 PM Vidhya Pino RN Muscle Tension 0 08/11/2025 1:15 PM Vidhya Poole RN Critical-Care Pain Observati on Score 0 08/11/2025 1:15 PM Vidhya Pino RN * Sedation Scales Question Answer Date of Assessment Author RASS 0 08/16/2025 8:00 AM Marina Mtz ra, RN * Stool Output/Assessment Question Answer Date of Assessment Author Most Recent BM Date [id number] 08/11/2025 9:30 AM ES T Deloris, Garrett, RN Stool Appearance Unable to assess 08/11/2025 9:30 AM Garrett Zee RN * ACS Disability Status Question Answer Date of Assessment Author Are you deaf or do you have serious difficulty hearing? No 08/16/2025 2:53 PM Marina Velázquez RN Are you blind or do you have serious difficulty seeing, even when wearing glasses? No 08/16/2025 2:53 PM Yasmin Velázquez RN Because of a physical, menta l, or emotional condition, do you have serious difficulty concentrating, remembering, or making decisions? (5 years old or older) No 08/16/2025 2:53 PM Carmelo Velázquez RN Do you have serious difficul ty walking or climbing stairs? No 08/16/2025 2:53 PM Marina Velázquez RN Do you have serious difficul ty dressing or bathing? No 08/16/2025 2:53 PM Marina Velázquez RN * Patient Specific Goals Question Answer Date of Assessment Author Patient/Family-Specific Goals (Include Timeframe) patient will remain free from falls/injury this shift. 08/16/2025 8:00 AM Marina Velázquez RN Individualized Care Needs safety 08/16/2025 8:00 AM Marina Velázquez RN Anxieties, Fears or Concerns none stated 08/16/2025 8:00 AM Marina Velázquez RN * Delirium Assessment Question Answer Date of Assessment Author Delirium Prevention & Management Yes 08/16/2025 8:00 AM Marina Velázquez RN Delirium Prevention & Management: Early Mobility Ambulate to extent of patient's ability;Up to chair for meals;Out of room if possible;Educate patient and family about the benfits of early mobility in the hospital 08/16/2025 8:00 AM Marina Velázquez RN Delirium Prevention & Management: Cognitive Engagement Familiar objects from home provided;Optimize pain and other medication management;Emotional support provided;Environmental consistency promoted;Delirium prevention education provided to patient and family 08/16/2025 8:00 AM Marina Velázquez RN Delirium Prevention & Management: Optimize Sleep/Wake Cycles Calming techniques provided;Natural light during the day;Lighting decreased at night;Environmental noise reduced at night;Encourage TV off at night;Bedtime routine promoted;Cluster care to decrease awakenings;Educate patient and family about optimizing sleep 08/16/2025 8:00 AM Marina Velázquez RN Delirium Scale Used Confusion Assessment Method 08/16/2025 8:00 AM Marina Velázquez RN * F = Family/Partner in Care Engagement and Empowerment Question Answer Date of Assessment Author How did you engage the family/partner in care? No family/client care coordinator present at this time. Will reevaluate 08/11/2025 4:00 AM Kayla Preston RN How did the family/partner in care participate? No family/client care coordinator present at this time. Will reevaluate 08/11/2025 4:00 AM Kayla Preston RN * Hourly Rounding Question Answer Date of Assessment Author Activity Assistance Stand by assist 08/16/2025 8:00 AM Marina Velázquez RN Toileting Independent 08/16/2025 8:00 AM Marina Mtz ra, RN Call Light Oriented to call light;Call light present and within reach 08/16/2025 8:00 AM Marina Velázquez RN Rest/ Sleep No problem identified 08/16/2025 8:00 AM Marina Velázquez RN Rest/ Sleep Enhancement Care clustered t o minimize awakenings 08/16/2025 8:00 AM Marina Velázquez RN Completed Hourly Rounding Yes 08/16/2025 8:00 AM Marina Velázquez RN Plan of Care Reviewed With Patient 08/16/2025 8:00 AM Marina Velázquez RN * Standardized Assessments Question Answer Date of Assessment Author Standardized Assessments [facility] 6-Clicks Mobility Assessment 08/12/2025 3:25 PM Cayetano Garcia * Jensen/Armindabin Scale Question Answer Date of Assessment Author Age (years) 3 08/10/2025 8:00 PM Kayla Preston RN Hemodynamics 4 08/10/2025 8:00 PM Kayla Preston RN Weight/Tissue Viability 3 08/10/2025 8:00 P M Kayla Preston RN Respiration 4 08/10/2025 8:00 PM Kayla Preston RN Past Medical History 4 08/10/2025 8:[address] Kayla Vaz RN Oxygen Requirments 4 08/10/2025 8:00 PM Kayla Preston RN General Skin Condition 4 08/10/2025 8:00 PM Kayla Preston RN Nutrition 4 08/10/2025 8:00 PM Kayla Preston RN Medical Condition 4 08/10/2025 8:00 PM Kayla Preston RN Incontinence 4 08/10/2025 8:00 PM Kayla Preston RN Mobility 4 08/10/2025 8:00 PM Kayla Preston RN Hygiene 4 08/10/2025 8:00 PM Kayla Preston RN Deduction if patient has bee n in surgery or transported to CT, MRI, or HBOT during last 48 hours 0 08/10/2025 8:00 PM Kayla Preston RN Deduction if patient has req uired blood or clotting factors during last 24 hours 0 08/10/2025 8:00 PM Kayla Preston RN Deduction if patient has hyp othermia of 35 C or under (core temp) 0 08/10/2025 8:00 PM Kayla Preston R N Jensen/Jazmin Pressure Risk Score 45 2024 8:00 PM Kayla Preston RN * Elopement Risk Screen Question Answer Date of Assessment Author Does the patient exhibit any of the following behaviors? No 08/16/2025 8:00 AM Panda Velázquez RN Does the patient have a cour t ordered legal guardian? Yes 08/16/2025 8:00 AM Madisyn Velázquez RN * Manual Muscle Testing - LLE Question Answer Date of Assessment Author Manual Muscle Testing [facility] 08/12/2025 3:25 PM Cayetano Garcia * Manual Muscle Testing - RUE Question Answer Date of Assessment Author Manual Muscle Testing - RUE [facility] 08/12/2025 3: 25 PM Cayetano Garcia * Manual Muscle Testing - LUE Question Answer Date of Assessment Author Manual Muscle Testing - LUE [facility] 08/12/2025 3: 25 PM Cayetano Garcia * Participants in Care Question Answer Date of Assessment Author Family/Caregiver Present N 08/12/2025 3:25 PM Cayetano Garcia * Dynamic Sitting Balance Question Answer Date of Assessment Author Level of Assistance Independent 08/12/2025 3:25 PM Cayetano Mercedes Dynamic Sitting-Balance Support No upper extremity support;Feet supported 08/12/2025 3:25 PM Cayetano Garcia * Cognition Question Answer Date of Assessment Author Mood/Behavior Alert 08/12/2025 3:25 PM Cayetano Garcia Orientation Level Oriented X4 08/12/2025 3: 25 PM Cayetano Garcia Overall Cognitive Status WFL 025 3:25 PM Cayetano Garcia Arousal/Alertness Appropriate response s to stimuli 08/12/2025 3:25 PM Cayetano Garcia Method of Communication Verbal 08/12/20 25 3:25 PM Cayetano Garcia Single Step Commands Consistently 08/12/2025 3:25 PM Cayetano Garcia Multi-Step Commands Consistently 08/12/2025 3 :25 PM Cayetano Garcia * Static Sitting Balance Question Answer Date of Assessment Author Static Sitting-Level of Assistance Independent 08/12/2025 3:25 PM Cayetano Garcia Static Sitting-Balance Support No upper extremity support;Feet supported 08/12/2025 3:25 PM Cayetano Garcia * Static Standing Balance Question Answer Date of Assessment Author Static Standing-Level of Assistance Supervision 08/12/2025 3:25 PM Cayetano Garcia Static Standing-Balance Support Right upper extremity support;Left upper extremity support 08/12/2025 3:25 PM Cayetano Garcia * C-SSRS (Frequent Screener) Question Answer Date of Assessment Author Is patient awake, alert, and able/willing to answer questions appropriately? Yes 08/16/2025 8:00 AM Marina Velázquez RN 1. Wish to be (Past 1 Month) No 025 8:00 AM Marina Velázquez RN 2. Non-Specific Active Suici ramsey Thoughts (Past 1 Month) No 08/16/2025 8:00 AM Madisyn Velázquez RN 6. Suicidal Behavior (Lifetime) No 8:00 AM Marina Velázquez RN * Discharge Planning Continued Question Answer Date of Assessment Author Transportation Home at Discharge Family/Friend will Provide 08/16/2025 2:00 PM Amisha López RN * [facility] 6-Clicks Mobility Assessment Question Answer Date of Assessment Author Difficulty patient has turni ng over in bed (including adjusting bedclothes, sheets, and blankets)? 4 08/12/2025 3:25 PM Cayetano Garcia Difficulty patient has sitti ng down on and standing up from a chair with arms (wheelchair, bedside commode, etc.)? 4 08/12/2025 3:25 PM Cayetano Garcia Difficulty patient has movin g from lying on back to sitting on the side of the bed? 4 08/12/2025 3:25 PM Cayetano Garcia How much help does the patie nt need moving to and from a bed to a chair (including a wheelchair)? 4 08/12/2025 3:25 PM Moni Garcia How much help does the patie nt need to walk in hospital room? 4 08/12/2025 3:25 PM Cayetano Garcia How much help does the patie nt need climbing 3-5 steps with a railing? 3 08/12/2025 3:25 PM Cayetano Suárez [facility] 6-Clicks Mobility Assessment Total 23 08/12/2025 3:25 PM Cayetano Garcia documented as of this encounter Mental Status * Time Calculation Question Answer Entry Date Author Start Time 23658 08/12/2025 3:25 PM Cayetano Marquis Stop Time 35789 08/12/2025 3:25 PM Cayetano Marquis Time Calculation (min) 28 08/12/2025 3:25 PM Cayetano Garcia * HEENT Question Answer Entry Date Author DANAY (WDL) WDL 08/16/2025 8:00 AM Marina Mtz ra, RN * Presentation Question Answer Entry Date Author Lines and Tubes Intravenous access 08/12/2025 3:25 PM Cayetano Garcia Post-Session Comments No alarm set. RN aware. 08/12/20 3:25 PM EST Ridner, Cayetano * BMI (Calculated) Answer Entry Date Author 27.8 08/16/2025 5:38 AM Carmen Stanley * Percent Excess Weight Loss Answer Entry Date Author 0 08/07/2025 5:18 AM Amber Kilgore RN * Total Weight Change Percent Answer Entry Date Author 2222 08/16/2025 5:38 AM Carmen Stanley * Weight Change Since Preop Answer Entry Date Author 80.18 08/16/2025 5:38 AM Carmen Stanley * Initial Excess Weight Answer Entry Date Author -67.13 08/07/2025 5:18 AM Amber Kilgore RN * IBW in lbs (Bariatric) Answer Entry Date Author 148 08/07/2025 5:18 AM Amber Kilgore RN * Weight Change Since Last Visit Answer Entry Date Author 0.37 08/16/2025 5:38 AM Carmen Stanley * IBW in kg (Bariatric) Answer Entry Date Author 67.13 08/07/2025 5:18 AM Amber Kilgore RN * Percent of IBW Answer Entry Date Author 4,597.71 08/07/2025 5:18 AM Amber Kilgore RN * EBW (kg) Answer Entry Date Author 3,084.54 08/07/2025 5:18 AM Amber Kilgore RN * EBW (lbs) Answer Entry Date Author 3,077.19 08/07/2025 5:18 AM Amber Kilgore RN * Preprocedure Normothermia Interventions Question Answer Entry Date Author Warming Blankets Applied Yes 08/11/2025 11:35 AM aGyle Corral RN Forced Air Warming Applied No 08/11/2025 11: 35 AM Gayle Corral RN * Intraprocedure Normothermia Interventions Question Answer Entry Date Author Minimize Patient Exposure Yes 08/11/2025 10:5 6 AM Amanda Borjas RN * Activity Management Answer Entry Date Author activity adjusted per tolerance 08/16/2025 2:43 PM Marina Velázquez RN * Progress Answer Entry Date Author improving 08/15/2025 10:20 PM Junior Canales RN * Infection Management Answer Entry Date Author aseptic technique maintained 08/16/2025 2:43 PM Marina Velázquez RN * Adaptive Equipment Use Answer Entry Date Author used independently 08/15/2025 10:20 AM Olga Prajapati RN * Supportive Measures Answer Entry Date Author active listening utilized;go al-setting facilitated;decision-making supported 08/15/2025 10:20 PM Amisha Canales RN * Oral Nutrition Promotion Answer Entry Date Author social interaction promoted 08/15/2025 10:20 AM Olga Schumacher, RN * Pressure Reduction Techniques Answer Entry Date Author frequent weight shift encouraged 08/15/2025 10:2 0 PM Amisha Canales RN * Pain Management Interventions Answer Entry Date Author medication (see MAR) 08/16/2025 2:43 PM Marina Narvaez RN * Assistive Device Utilized Answer Entry Date Author crutches 08/15/2025 10:20 PM Junior Canales RN * Fever Reduction/Comfort Measures Answer Entry Date Author lightweight bedding 08/14/2025 9:04 PM Tamara Anglin RN * Sensory Stimulation Regulation Answer Entry Date Author quiet environment promoted;l ighting decreased;care clustered 08/15/2025 10:20 PM Amisha Canales RN * Complementary Therapy Answer Entry Date Author other (see comments) 08/12/2025 9:04 AM Klarissa Tapia RN * Trust Relationship/Rapport Answer Entry Date Author care explained;choices provi ded;emotional support provided;empathic listening provided;questions answered;questions encouraged;reassurance provided;thoughts/feelings acknowledged 08/15/2025 10:20 PM Amisha Canales RN * Pressure Reduction Devices Answer Entry Date Author pressure-redistributing mattress utilized 2024 10:20 AM Olga Schumacher RN * Elevated Risk Identified Answer Entry Date Author bleeding;fluid and electroly te imbalance;postoperative nausea and vomiting 08/11/2025 11:53 AM Nidia Polanco RN * Elevated Risk Identified Answer Entry Date Author infection;procedure-related injury;VTE (venous thromboembolism) 08/11/2025 11:53 AM Nidia Polanco RN * Diversional Activities Answer Entry Date Author television 08/15/2025 10:20 PM Junior Canales RN * Nutrition Interventions Answer Entry Date Author food preferences provided 08/15/2025 10:20 AM Olga Huerta RN * Infection Prevention Answer Entry Date Author environmental surveillance performed;equipment surfaces disinfected;hand hygiene promoted;personal protective equipment utilized;rest/sleep promoted;single patient room provided 08/15/2025 10:20 PM Amisha Canales RN * Breathing Techniques/Airway Clearance Answer Entry Date Author other (see comments) 08/14/2025 7:04 AM Matilde Portillo RN * Outcome Evaluation Answer Entry Date Author Pt understands plan of care 08/13/2025 7:55 PM Gucci Fountain RN * Bowel Elimination Promotion Answer Entry Date Author adequate fluid intake promoted 08/15/2025 10:20 PM Amisha Canales RN * Spiritual Activities Assistance Answer Entry Date Author personal rituals encouraged 08/15/2025 10:20 PM Amisha Canales RN * Sleep/Rest Enhancement Answer Entry Date Author awakenings minimized;consist ent schedule promoted;regular sleep/rest pattern promoted;room darkened;noise level reduced 08/15/2025 10:20 PM Parviz Canales RN * Medication Review/Management Answer Entry Date Author medications reviewed 08/16/2025 2:43 PM Marina Narvaez RN * Seizure Precautions Answer Entry Date Author activity supervised 08/14/2025 7:04 AM Matilde Michael RN * Topical Inflammation Care Answer Entry Date Author other (see comments) 08/14/2025 7:04 AM Matilde Portillo RN * Self-Care Promotion Answer Entry Date Author BADL personal objects within reach;BADL personal routines maintained;adaptive equipment use encouraged;independence encouraged 08/15/2025 10:20 PM Amisha Canales RN * Safety Interventions Question Answer Entry Date Author Safety Precautions/Falls Reduction assistive device/personal items within reach 08/07/2025 5:22 AM Carol Kilgore RN * Goal: Anesthesia/Sedation Recovery Question Answer Entry Date Author Outcome Anesthesia/Sedation Recovery progressing 08/11/2025 1:20 PM Vidhya Pino RN * General Emergency Care CPG Interventions Question Answer Entry Date Author Coping Interventions care explained to patient/family prior to performing 08/09/2025 8:00 PM Yobany Greene, RN General Care Management calm environment promoted 08/09/2025 8:00 PM Yobany Greene, RN * Discharge Needs Assessment Question Answer Entry Date Author Discharge Facility/Level of Care Needs 1-Home or Self Care 08/16/2025 2:00 PM Amisha López RN Equipment Needed After Discharge walker, rolling 08/16/2025 2:00 PM Amisha López RN Anticipated Changes Related to Illness none 08/16/2025 2:00 PM Amisha López RN Transportation Anticipated family or fri end will provide 08/09/2025 2:00 PM Amisha López RN Transportation Concerns none 08/09/20 2:00 PM Amisha López RN Concerns to be Addressed discharge planning 09/2024 2:00 PM Amisha López RN Readmission Within the Last 30 Days no previous admission in last 30 days 08/16/2025 2:00 PM Amisha López RN Patient/Family Anticipated Services at Transition outpatient care 08/16/2025 2:00 PM Amisha López RN Patient/Family Anticipates Transition to home 08/09/2025 2:00 PM Amisha López RN Does the patient need discharge transport arranged? No 08/16/2025 2:00 PM Amisha López RN Has discharge transport been arranged? No 08/16/2025 2:00 PM Amisha López RN What day is the transport expected? [id number] 08/16/2025 2:00 PM Amisha López RN Who is requesting discharge planning? Provider 08/16/2025 2:00 PM Amisha López RN * Goal: Optimal Comfort and Wellbeing Question Answer Entry Date Author Problem Identified pain 08/11/2025 1:20 PM Vidhya Pino RN Outcome Optimal Comfort and Wellbeing progressing 08/11/2025 1:20 PM Vidhya Pino RN Elevated Risk Identified pain 08/11/2025 1:20 PM Vidhya Pino RN * Goal: Minimized Risk/Safety Maintenance Question Answer Entry Date Author Outcome Minimized Risk and Safety progressing 08/11/2025 1:20 PM Vidhya Pino RN * Goal: Physiologic Homeostasis Question Answer Entry Date Author Outcome Physiologic Homeostasis progressing 08/11/2025 1:20 PM Vidhya Pino RN * Acuity/Destination Question Answer Entry Date Author Patient Acuity 3 08/07/2025 5:21 AM Carol Camarillo RN Triage Complete Triage complete 08/07/2025 5:21 AM Carol Kilgore RN ED Destination Main 08/07/2025 5:21 AM Carol Camarillo RN * PACU Interventions Question Answer Entry Date Author Warm Seiling Applied 08/11/2025 1:15 PM Vidhya Pino RN Additional Comfort/Environmental Interventions Warm blanket 08/11/2025 1:15 PM Vidhya Pino RN * Weight Change 24 hrs Answer Entry Date Author .367 08/16/2025 5:38 AM EST Carmen Sun * Facility NPI Question Answer Entry Date Author [facility] Medical 08/09/2025 8:36 AM Delon Zelaya RN * Precautions Question Answer Entry Date Author Medical Precautions Fall precautions 08/12/2025 3:25 P M Cayetano Garcia * Delirium Assessment Question Answer Entry Date Author CAM-ICU/PCAM-ICU No 08/12/2025 3:25 PM Cayetano Lyons * General Question Answer Entry Date Author Next PT Re-Assessment Date [id number] 08/12/2025 3:2 5 PM Cayetano Garcia Date of PT Session [id number] 08/12/2025 3:25 PM Cayetano Garcia * PT Assessment Question Answer Entry Date Author History Profile 1 - 2 personal facto rs and/or comorbidities 08/12/2025 3:25 PM Cayetano Garcia Evaluation/Treatment Tolerance Other (Comment) 08/12/2025 3:25 PM Cayetano Garcia Diagnosis Gait deficits 08/12/2025 3:25 PM Cayetano Garcia Clinical Presentation Stable and/or unco mplicated characteristics 08/12/2025 3:25 PM Cayetano Garcia Clinical Decision Making Low complexity 11/27/2 025 3:25 PM Cayetano Garcia Rehab Potential Good, to achieve sta christina therapy goals 08/12/2025 3:25 PM Cayetano Garcia Activity Tolerance Endurance does not l imit participation in activity 08/12/2025 3:25 PM Cayetano Garcia * HLM Score Question Answer Entry Date Author HLM Daily Mobility Goal 7 08/16/2025 8:0 0 AM Marina Velázquez RN [facility] Daily Mobility Score 7 08/16/2025 8: 00 AM Marina Velázquez RN * Plan of Care Reviewed With Answer Entry Date Author patient 08/15/2025 10:20 PM Junior Canales RN * Pressure Injury Prevention (PIP) Interventions Question Answer Entry Date Author Pressure Reducing Devices Pillow 08/16/2025 8:00 AM Marina Velázquez RN Bed Type Acute Care Bed 08/16/2025 8:00 AM Marina Maya RN * Vital Signs Question Answer Entry Date Author BP 127/76 08/16/2025 11:10 AM OMAYRA orr, Doc Flowsheet In Temp 97.5 08/16/2025 11:10 AM Emiliano Silverman Flowsheet In Pulse 71 08/16/2025 11:10 AM Emiliano Silverman Flowsheet In Resp 18 08/16/2025 3:16 AM Amisha Canales RN Heart Rate Source Monitor 08/11/2025 1:35 PM iVdhya Pino RN Cardiac Rhythm NSR 08/11/2025 1:15 PM Vidhya Poole RN MAP (mmHg) 93 08/16/2025 11:10 AM Emiliano Silverman Flowsheet In * Oxygen Therapy Question Answer Entry Date Author SpO2 96 08/16/2025 11:10 AM Emiliano Burns Flowsheet In O2 Flow Rate (L/min) 6 08/11/2025 1:15 PM Vidhya Patel RN Oxygen Therapy None 08/15/2025 7:29 PM Amisha Mckeon Cro, RN O2 Delivery Method Face tent 08/11/2025 1:15 PM Vidhya Pino RN Oximetry Probe Site Location Right Digit 08/07/2025 2:09 PM EST Amada Mendenhall * Patient Observation Question Answer Entry Date Author Patient Observations asked for signout a t this time 08/11/2025 1:35 PM EST Vidhya Magdaleno RN * Neurological Question Answer Entry Date Author Neuro ([facility]) [facility] 08/11/2025 4:00 AM EST Kayla Vaz RN * Gastrointestinal Question Answer Entry Date Author Gastrointestinal ([facility]) [facility] 08/16/2025 8:00 AM EST Marina Madison RN * Peripheral Vascular Question Answer Entry Date Author Peripheral Vascular ([facility]) [facility] 2024 8:00 AM EST Marina Madison RN LLE Edema Non-pitting 08/13/2025 4:00 AM EST Amada Dennison RN Capillary Refill Less than/equal to 2 seconds (All extremities) 08/15/2025 4:00 PM EST Hatfull, Meena L, 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 Pulses L pedal 08/15/2025 4:00 PM EST Hatfull, Meena L, 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 Cyanosis None 08/15/2025 4:00 PM EST Hatfull, Meena L, 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 Edema Left lower extremity 08/14/2025 3:10 PM EST Matilde Ornelas RN PVS Additional Assessments LLE 08/11/2025 1:15 PM EST Vidhya Magdaleno, RN * RUE Neurovascular Assessment Question Answer Entry Date Author R Radial Pulse +2 08/15/2025 4:00 PM EST Hat full, Meena L, 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 * LUE Neurovascular Assessment Question Answer Entry Date Author L Radial Pulse +2 08/15/2025 4:00 PM EST Hat full, Meena L, 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 * RLE Neurovascular Assessment Question Answer Entry Date Author R Pedal Pulse +2 08/15/2025 4:00 PM EST Hatf ull, Meena L, 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 * LLE Neurovascular Assessment Question Answer Entry Date Author LLE Capillary Refill Less than/equal to 2 seconds 08/14/2025 3:10 PM EST Matilde Ornelas RN LLE Color Unable to assess 08/12/2025 4:41 PM EST Klarissa Whitehead RN LLE Temperature/Moisture Warm 025 4:00 PM EST Valerie Chaidez RN L Pedal Pulse +2 08/15/2025 4:00 PM Meena Pascual LPN LLE Movement Present 08/13/2025 8:00 AM Valerie Babin RN * Musculoskeletal Question Answer Entry Date Author RUE Full movement 08/11/2025 4:00 PM Garrett Jones RN RLE Full movement 08/11/2025 4:00 PM Garrett Jones RN LUE Full movement 08/11/2025 4:00 PM Garrett Jones RN LLE Surgery 08/16/2025 8:00 AM Marina Mtz ra, RN Musculoskeletal (WDL) X 08/16/2025 8:00 AM Marina Velázquez RN * Urine Assessment Question Answer Entry Date Author Urinary Incontinence No 08/15/2025 4:00 PM E Meena Tran LPN * Psychosocial Question Answer Entry Date Author Psychosocial (JUVE) WDL 08/16/2025 8:00 AM Marina Velázquez RN Length of Time/Family Visitation 0-5 min 08/11/20 4:00 AM Kayla Preston RN * Unmeasured Output Question Answer Entry Date Author Unmeasured Stool Occurrence (hourly total) 1 08/15/2025 12:33 AM Willian Heredia * Intake Question Answer Entry Date Author [address] 08/13/2025 8:20 AM Valerie Baez RN * Output (mL) Question Answer Entry Date Author Urine Color Yellow/straw 08/15/2025 7:29 PM EST Emers on, Carmen Urine Appearance Clear 08/15/2025 7:29 PM EST Junior [email or web address] Urine Odor No odor 08/15/2025 7:29 PM EST Emers on, Carmen Stool Amount Small 08/15/2025 12:33 AM EST Willian Jones Bowel Incontinence No 08/15/2025 12:33 AM Willian Kerr * Pozo Fall Risk Question Answer Entry Date Author History of Falling, Immediat e or Within 3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 (1A) No 08/16/2025 8:00 AM Marina Velázquez RN * Confusion Assessment Method-ICU (CAM-ICU/PCAM-ICU) Question Answer Entry Date Author Feature 1: Acute Onset or Fl uctuating Course Negative 08/11/2025 4:00 AM Kayla Preston RN * Feature 3: Altered Level of Consciousness Answer Entry Date Author Negative 08/16/2025 8:00 AM Marina Velázquez RN * Overall CAM-ICU/PCAM-ICU Answer Entry Date Author Negative 08/11/2025 4:00 AM Grant Preston RN * Critical-Care Pain Observation Tool Question Answer Entry Date Author Target Pain Score Routine (0-2) 08/11/2025 1:1 5 PM Vidhya Pino RN Facial Expression 0 08/11/2025 1:1 5 PM Vidhya Pino RN Body Movements 0 08/11/2025 1:15 PM Vidhya Pino RN Vocalization (Extubated Patients) 0 08/11/2025 1:15 PM Vidhya Pino RN Muscle Tension 0 08/11/2025 1:15 PM Vidhya Pino RN Critical-Care Pain Observation Score 0 08/11/2025 1:15 PM Vidhya Pino RN * Sedation Scales Question Answer Entry Date Author Sedation Scale Used Morse Agitation Sedation Scale 08/16/2025 8:00 AM Marina Velázquez RN RASS 0 08/16/2025 8:00 AM Marina Velázquez RN Pasero Opioid-Induced Sedation Scale (POSS) 1 08/16/2025 8:00 AM Marina Velázquez RN * Urine Output/Assessment Question Answer Entry Date Author Urine 300 08/16/2025 5:38 AM Amisha Canales RN Unmeasured Urine Occurrence 1 08/15/2025 6: 00 AM Tamara Anglin RN Urine Amount Medium 08/11/2025 5:06 PM Garrett Urias RN * Stool Output/Assessment Question Answer Entry Date Author Most Recent BM Date [address] 08/11/2025 9:30 AM Garrett Hall RN Stool Appearance Unable to assess 08/11/2025 9:30 AM Garrett Zee RN * Fall Risk Calculated Score Answer Entry Date Author Sánchez Low 08/16/2025 8:00 AM Marina Velázquez RN * Patient Specific Goals Question Answer Entry Date Author Patient/Family-Specific Goals (Include Timeframe) patient will remain free from falls/injury this shift. 08/16/2025 8:00 AM Marina Velázquez RN Individualized Care Needs safety 2024 8:00 AM Marina Velázquez RN Anxieties, Fears or Concerns none stated 09/2024 8:00 AM Marina Velázquez RN * Delirium Assessment Question Answer Entry Date Author Delirium Prevention & Management Yes 08/16/2025 8:00 AM Marina Velázquez RN Delirium Prevention & Management: Early Mobility Ambulate to extent of patient's ability;Up to chair for meals;Out of room if possible;Educate patient and family about the benfits of early mobility in the hospital 08/16/2025 8:00 AM Marina Velázquez RN Delirium Prevention & Management: Cognitive Engagement Familiar objects from home provided;Optimize pain and other medication management;Emotional support provided;Environmental consistency promoted;Delirium prevention education provided to patient and family 08/16/2025 8:00 AM Marina Velázquez RN Delirium Prevention & Management: Optimize Sleep/Wake Cycles Calming techniques provided;Natural light during the day;Lighting decreased at night;Environmental noise reduced at night;Encourage TV off at night;Bedtime routine promoted;Cluster care to decrease awakenings;Educate patient and family about optimizing sleep 08/16/2025 8:00 AM Marina Velázquez RN Delirium Scale Used Confusion Assessment Method 08/16/2025 8:00 AM Marina Velázquez RN * Follow Up Question Answer Entry Date Author [place] [address] 08/11/2025 8:[address] * Deterioration Index Score Question Answer Entry Date Author Deterioration Index Score 19.95 08/16/2025 4:46 PM Amna Cespedes * Unplanned Readmission Scores Question Answer Entry Date Author Unplanned Readmission Score 10.41 08/16/2025 4: 00 PM Amna Cespedes * F = Family/Partner in Care Engagement and Empowerment Question Answer Entry Date Author How did you engage the family/partner in care? No family/client care coordinator present at this time. Will reevaluate 08/11/2025 4:00 AM Kayla Preston RN How did the family/partner in care participate? No family/client care coordinator present at this time. Will reevaluate 08/11/2025 4:00 AM Kayla Preston RN * PRN Medication Given Reason Answer Entry Date Author pain 08/14/2025 10:33 AM Klarissa Laureano RN * Discharge Medication Bedside Delivery Question Answer Entry Date Author Meds to Beds Complete? Yes 5:49 PM Randi Morales PharmD Current Status Prescriptions Delive red - M2B Service Complete 08/16/2025 5:49 PM Randi Morales, PharmD Is the patient interested in Medication Bedside Delivery at Discharge? Yes, interested 08/16/2025 5:49 PM Randi Morales PharmD * Joann Coma Scale Numeric Answer Entry Date Author 15 08/16/2025 8:00 AM Marina Velázquez RN * Elevate heels task - custom formula Answer Entry Date Author 1 08/16/2025 8:00 AM Marina Velázquez RN * Neurological Question Answer Entry Date Author Neuro Pertinent Negatives Alert and oriented x 4;Speech clear 08/07/2025 5:23 AM EST Carol Mayer RN Neuro ([facility]) WDL 08/07/2025 5:23 AM Carol Kilgore RN * Musculoskeletal Question Answer Entry Date Author Musculoskeletal Pertinent Negatives Moves all extremities 08/07/2025 8:00 AM Reina Arredondo RN Musculoskeletal ([facility]) X 08/07/2025 8:00 AM Reina Arredondo RN * Vitals Timer Question Answer Entry Date Author Update Vitals Alert Interval 240 08/07/2025 2 :09 PM EST Amada Mendenhall Restart Vitals Timer Yes 08/16/2025 3:16 AM E Amisha Rodríguez RN Restart Vitals Timer Yes 08/07/2025 2:09 PM E Amada Chino * Respiratory Assessment Question Answer Entry Date Author Respiratory ([facility]) WDL 08/11/2025 1:15 PM EST Vidhya Magdaleno RN * Integumentary Question Answer Entry Date Author Integumentary ([facility]) X 08/11/2025 1:15 PM ES T Vidhya Magdaleno RN * Modified Ziyad Question Answer Entry Date Author Activity 2 08/11/2025 1:30 PM EST Vidhya Aleman RN Respiration 2 08/11/2025 1:30 PM Vidhya De Jesus RN Hemodynamic Stability 2 08/11/2025 1:30 PM EST Vidhya Magdaleno RN Consciousness 1 08/11/2025 1:30 PM EST Vidhya Holder RN Oxygen Saturation 2 08/11/2025 1:30 PM EST Vidhya Magdaleno RN Modified Ziyad Score 13 08/11/2025 1:30 PM EST Vidhya Magdaleno RN Pain 2 08/11/2025 1:30 PM EST Vidhya Aleman RN Emetic Symptoms 2 08/11/2025 1:30 PM EST Vidhya Florez RN * Postprocedure Normothermia Interventions Question Answer Entry Date Author Seiling Applied No 08/11/2025 1:20 PM EST Vidhya Florez RN Is the patient normothermic? Yes 08/11/2025 1 :20 PM Vidhya Pino RN * Hourly Rounding Question Answer Entry Date Author Activity Assistance Stand by assist 08/16/2025 8 :00 AM Marina Velázquez RN Toileting Independent 08/16/2025 8:00 AM Marina Velázquez RN Call Light Oriented to call light;Call light present and within reach 08/16/2025 8:00 AM Marina Velázquez RN Rest/ Sleep No problem identified 08/16/2025 8:00 AM Marina Velázquez RN Rest/ Sleep Enhancement Care clustered t o minimize awakenings 08/16/2025 8:00 AM Marina Velázquez RN Completed Hourly Rounding Yes 08/16/2025 8:00 AM Marina Velázquez RN Plan of Care Reviewed With Patient 08/16/2025 8:00 AM Marina Velázquez RN * Jensen/Cubbin Scale Question Answer Entry Date Author Age (years) 3 08/10/2025 8:00 PM Kayla Preston RN Hemodynamics 4 08/10/2025 8:00 PM Kayla Preston RN Weight/Tissue Viability 3 08/10/2025 8:00 P M Kayla Preston RN Respiration 4 08/10/2025 8:00 PM Kayla Preston RN Past Medical History 4 08/10/2025 8:[address] Kayla Vaz RN Oxygen Requirments 4 08/10/2025 8:00 PM Kayla Preston RN General Skin Condition 4 08/10/2025 8:00 PM Kayla Preston RN Nutrition 4 08/10/2025 8:00 PM Kayla Preston RN Medical Condition 4 08/10/2025 8:00 PM Kayla Preston RN Incontinence 4 08/10/2025 8:00 PM Kayla Preston RN Mobility 4 08/10/2025 8:00 PM Kayla Preston RN Hygiene 4 08/10/2025 8:00 PM Kayla Preston RN Deduction if patient has bee n in surgery or transported to CT, MRI, or HBOT during last 48 hours 0 08/10/2025 8:00 PM Kayla Preston RN Deduction if patient has req uired blood or clotting factors during last 24 hours 0 08/10/2025 8:00 PM Kayla Preston RN Deduction if patient has hyp othermia of 35 C or under (core temp) 0 08/10/2025 8:00 PM Kayla Preston R N Jensen/Jazmin Pressure Risk Score 45 2024 8:00 PM Kayla Preston RN * Elopement Risk Screen Question Answer Entry Date Author Does the patient exhibit any of the following behaviors? No 08/16/2025 8:00 AM Panda Velázquez RN Does the patient have a cour t ordered legal guardian? Yes 08/16/2025 8:00 AM Madisyn Velázquez RN * Cognition Question Answer Entry Date Author Mood/Behavior Alert 08/12/2025 3:25 PM Cayetano Garcia Orientation Level Oriented X4 08/12/2025 3:2 5 PM Cayetano Garcia Overall Cognitive Status WFL 025 3:25 PM Cayetano Garcia Arousal/Alertness Appropriate response s to stimuli 08/12/2025 3:25 PM Cayetano Garcia Method of Communication Verbal 08/12/20 25 3:25 PM Cayetano Garcia Single Step Commands Consistently 08/12/2025 3:25 PM Cayetano Garcia Multi-Step Commands Consistently 08/12/2025 3 :25 PM Cayetano Garcia * C-SSRS (Frequent Screener) Question Answer Entry Date Author Is patient awake, alert, and able/willing to answer questions appropriately? Yes 08/16/2025 8:00 AM Marina Velázquez RN 1. Wish to be (Past 1 Month) No 025 8:00 AM Marina Velázquez RN 2. Non-Specific Active Suici ramsey Thoughts (Past 1 Month) No 08/16/2025 8:00 AM Madisyn Velázquez RN 6. Suicidal Behavior (Lifetime) No 8:00 AM Marina Velázquez RN * Discharge Planning Continued Question Answer Entry Date Author Transportation Home at Discharge Family/Friend will Provide 08/16/2025 2:00 PM Amisha López RN * [facility] 6-Clicks Mobility Assessment Question Answer Entry Date Author Difficulty patient has turni ng over in bed (including adjusting bedclothes, sheets, and blankets)? 4 08/12/2025 3:25 PM Cayetano Garcia Difficulty patient has sitti ng down on and standing up from a chair with arms (wheelchair, bedside commode, etc.)? 4 08/12/2025 3:25 PM Cayetano Garcia Difficulty patient has movin g from lying on back to sitting on the side of the bed? 4 08/12/2025 3:25 PM Cayetano Garcia How much help does the patie nt need moving to and from a bed to a chair (including a wheelchair)? 4 08/12/2025 3:25 PM EST Moni Tlilman How much help does the patie nt need to walk in hospital room? 4 08/12/2025 3:25 PM Cayetano Garcia How much help does the patie nt need climbing 3-5 steps with a railing? 3 08/12/2025 3:25 PM EST Cayetano Moya [facility] 6-Clicks Mobility Assessment Total 23 08/12/2025 3:25 PM Cayetano Garcia * Because of a physical, mental, or emotional condition, do you have serious difficulty concentrating, remembering, or making decisions? (5 years old or older) Answer Entry Date Author No 08/16/2025 2:53 PM Marina Velázquez, ORLIN documented in this encounter Medications at Time of Discharge acetaminophen (Tylenol) 500 MG tablet Take 2 tablets by mouth every 8 hours as needed for pain. 08/16/2025 Alcohol Sheets (Alcoh-Wipe) sheet Use as directed. 300 each 11 08/16/2025 atorvastatin (Lipitor) 40 MG tablet Take 1 tablet by mouth daily. Blood Glucose Monitoring Suppl device Test three times daily 1 each 08/16/2025 buPROPion SR (Wellbutrin SR) 150 MG 12 hr tablet Take 1 tablet by mouth daily. Do not crush, chew, or split. cefdinir (Omnicef) 300 MG capsule 11/18/2024 cholecalciferol (Vitamin D3) 25 MCG (1000 UT) tablet Take 1 tablet by mouth daily. finasteride (Proscar) 5 MG tablet Take 1 tablet by mouth daily. Do not crush, chew, or split. glucose blood test strip Test three times daily 300 strip 11 08/16/2025 insulin aspart (NovoLOG FLEXPEN) 100 UNIT/ML injection pen Inject 8 Units under the skin 3 times a day before meals. Add a correction scale dose as follows: blood sugar 150-199 use 2 units, 200-249 use 4 units, 250-299 use 6 units, 300-349 use 8 units, 350-399 use 10 units, >399 12 units and call provider. Max daily dose 50 units. 15 mL 5 08/16/2025 insulin glargine (Lantus SoloStar) 100 UNIT/ML injection pen Inject 20 Units under the skin 2 times a day. 15 mL 2 08/16/2025 Lancets misc Test three times daily 300 each 11 08/16/2025 lisinopril 10 MG tablet 12/05/2017 lisinopril-hydro CHLOROthiazide 20-12.5 MG tablet Take 2 tablets by mouth daily. multivitamin (Theragran-M) tablet Take 1 tablet by mouth daily. pen needle, diabetic 31G X 5 MM misc Use as directed with insulin pen. 100 each 11 08/16/2025 pen needle, diabetic 31G X 5 MM misc Use as directed with insulin pen. 100 each 11 08/16/2025 tamsulosin (Flomax) 0.4 MG 24 hr capsule 12/05/2017 cefadroxil (Duricef) 500 MG capsuleIndicatio ns:Cellulitis and abscess of toe of left foot Take 1 capsule by mouth 2 times a day for 2 days. 4 capsule 08/16/2025 5 ibuprofen 400 MG tablet Take 1 tablet by mouth every 8 hours as needed for moderate pain for up to 5 days. 08/16/2025 5 documented as of this encounter Miscellaneous Notes * Addendum Note - Jenni Banuelos - 08/16/2025 5:03 PM ESTEncounter addended by: Jenni Banuelso on: 08/26/2025 3:18 PM Actions taken: Utilization Review data saved * Addendum Note - Brodie Pal - 08/16/2025 5:03 PM ESTEncounter addended by: Brodie Pal on: 08/26/2025 3:37 PM Actions taken: Utilization Review data saved * Addendum Note - Brodie Pal - 08/16/2025 5:03 PM ESTEncounter addended by: Brodie Pal on: 08/27/2025 3:18 PM Actions taken: Utilization Review saved, Utilization Review data saved * Addendum Note - Jenni Banuelos - 08/16/2025 5:03 PM ESTEncounter addended by: Jenni Banuelos on: 08/31/2025 12:27 PM Actions taken: Utilization Review saved, Utilization Review data saved * Addendum Note - Brodie Pal - 08/16/2025 5:03 PM ESTEncounter addended by: Brodie Pal on: 08/31/2025 2:33 PM Actions taken: Utilization Review saved, Utilization Review data saved * Progress Notes - Consuelo Solano RN - 08/16/2025 4:18 PM EST OPAT Enrollment Progress Note Patient: Hi Goode : 1965 Referring ID Team: Bone and Joint Indications for Use: Osteoarticular Infection, non-prosthetic (Additional Indications for Use comments may be attached to the order. To view those comments, please review the order in Chart Review) Evaluation Start Date: 08/10/25 Evaluation Status: Complete Enrollment Status: Modified OPAT Appropriate Modified Enrollment Reason: Other (IV antibiotics not indicated at d/c) Modified Enrollment Plan: Oral antibiotic Per ID attending, Dr Delmi Dunne, OPAT services no longer needed at this time. Consuelo Solano, RN 08/16/2025 * Care Plan - Marina Madison RN - 08/16/2025 2:45 PM EST Problem: Adult Inpatient Plan of Care Goal: Plan of Care Review Outcome: Ongoing, Progressing Goal: Patient-Specific Goal (Individualized) Outcome: Ongoing, Progressing Goal: Absence of Hospital-Acquired Illness or Injury Outcome: Ongoing, Progressing Goal: Optimal Comfort and Wellbeing Outcome: Ongoing, Progressing Intervention: Monitor Pain and Promote Comfort Flowsheets (Taken 08/16/2025 1443) Pain Management Interventions: medication (see MAR) Problem: Pain Acute Goal: Optimal Pain Control and Function Outcome: Ongoing, Progressing Intervention: Prevent or Manage Pain Flowsheets (Taken 08/16/2025 1443) Medication Review/Management: medications reviewed Problem: Skin or Soft Tissue Infection Goal: Absence of Infection Signs and Symptoms Outcome: Ongoing, Progressing Intervention: Minimize and Manage Infection Progression Flowsheets (Taken 08/16/2025 1443) Infection Management: aseptic technique maintained Problem: Wound Goal: Optimal Wound Healing Outcome: Ongoing, Progressing Intervention: Promote Wound Healing Flowsheets (Taken 08/15/2025 2220 by Amisha Velásquez, ORLIN) Sleep/Rest Enhancement: awakenings minimized consistent schedule promoted regular sleep/rest pattern promoted room darkened noise level reduced Problem: Comorbidity Management Goal: Blood Glucose Level Within Target Range Outcome: Ongoing, Progressing Goal: Maintenance of Osteoarthritis Symptom Control Outcome: Ongoing, Progressing Intervention: Maintain Osteoarthritis Symptom Control Flowsheets (Taken 08/16/2025 1443) Activity Management: activity adjusted per tolerance Medication Review/Management: medications reviewed Problem: Fall Injury Risk Goal: Absence of Fall and Fall-Related Injury Outcome: Ongoing, Progressing Intervention: Promote Injury-Free Environment Flowsheets (Taken 08/16/2025 0800) Safety Promotion/Fall Prevention: assistive device/personal items within reach clutter-free environment maintained fall prevention program maintained lighting adjusted mobility aid in reach nonskid shoes/slippers when out of bed room organization consistent safety round/check completed toileting scheduled Problem: Skin Injury Risk Increased Goal: Skin Health and Integrity Outcome: Ongoing, Progressing Intervention: Optimize Skin Protection Flowsheets Taken 08/16/2025 1443 by Marina Madison, RN Activity Management: activity adjusted per tolerance Taken 08/15/20250 by Amisha Velásquez RN Pressure Reduction Techniques: frequent weight shift encouraged * Progress Notes - Amisha Chang RN - 08/16/2025 2:10 PM EST Case Management Discharge Note Hi Goode 60 y.o. male CSN: [id number] Admission: 08/07/2025 5:18 AM Primary Problem: Cellulitis and abscess of toe of left foot Patient medically ready for discharge. Patient to discharge home with family to transport. Patient to follow up with wound care clinic. 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: Primary Caregiver: Self Assistance Available at Discharge: Availability of Care Givers (#Hours): No assistance needed Housing Circumstances-Z Codes: Housing Circumstances (select all that apply): Low Income (101-300% Federal Poverty Guidlines) - Z596 Patient Referred to Financial or Community Resources: None Discharge Facility/Level of Care Needs: Discharge Facility/Level of Care Needs: 1-Home or Self Care Patient's Choice of Community Agency(s): Not applicable Patient/Family Anticipated Services at Transition: Patient/Family Anticipated Services at Transition: outpatient care DME/Equipment Needed after Discharge: Equipment Currently Used at Home: none Equipment Needed After Discharge: walker, rolling Readmission Within the Last 30 Days: Readmission Within the Last 30 Days: no previous admission in last 30 days Medicare Documentation: Medicare Second Notice?: No (medicaid insurance) Follow-up: Andie Moyer MD [address] [facility] [address] [facility] [id number] Iraida Reese, CHAKA [address] [facility] [address] Schedule an appointment as soon as possible for a visit Coy, Bria Clark MD [address] [address] All follow up provided in AVS. Discharge Transportation: Transportation Anticipated: family or friend will provide Transportation Home at Discharge: Family/Friend will Provide Has discharge transport been arranged?: No What day is the transport expected?: 08/16/25 Follow Up Transport: Transportation Needed to Follow up Appoinments: Self, Family/Friend will Provide Amisha Chang RN * Discharge Summary - Uche Fonseca MD - 08/16/2025 12:34 PM EST Images from the original note were not included. Hospitalization Admit Date/Time: 08/07/2025 5:18 AM Admitting Attending: Oriana Castelan Discharge Date: 08/16/25 Discharge Attending Physician: Uche Fonseca MD PCP name and Address: Iraida Reese APRN [address] [facility] [place] / [place] [address] Referring provider name and address: Bria Coy MD [address] [place] [address] Chief Concern, Brief History of Present Illness, and Hospital Course Hi Goode is a 60-year-old male with insulin-dependent type 2 diabetes mellitus, hypertension, hyperlipidemia, and major depressive disorder who was admitted for evaluation and management of left foot cellulitis and abscess following a puncture wound to the left fourth toe. PROBLEM-ORIENTED HOSPITAL SUMMARY Cellulitis, Abscess, and Osteomyelitis of Left Fourth Toe He presented after stepping on a nail, with subsequent development of left foot pain, erythema, swelling, and systemic symptoms. Initial imaging revealed soft tissue edema, subcutaneous emphysema, and concern for osteomyelitis. MRI demonstrated ulceration extending to the proximal interphalangeal joint, joint effusion, and findings consistent with cellulitis and possible septic arthritis. He was managed with broad-spectrum IV antibiotics, including vancomycin and piperacillin-tazobactam, later transitioned to meropenem per infectious disease recommendations due to worsening erythema and risk of resistant organisms. Blood cultures remained negative throughout hospitalization. 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 Postoperatively, wound care included BID wet-to-dry dressing changes and protected weight bearing with a forefoot offloading shoe. Gram stain and culture from bone grew Staphylococcus aureus, and antibiotics were transitioned to cefazolin; vancomycin and meropenem were discontinued per infectious disease recommendations. He will be prescribed 2 more days of oral Duricef at discharge to complete a total of 7 days of antibiotics after surgery. He remained afebrile and hemodynamically stable, with improving inflammatory markers and no evidence of ongoing infection at discharge. Surgical pathology results returned and showed no evidence of osteomyelitis at the margin. Vascular surgery recommend WTD dressing BID. Follow up in wound care in 2 weeks. They also recommended a forefoot offloading shoe which has been provided. Insulin-Dependent Type 2 Diabetes Mellitus His diabetes was poorly controlled on admission (HbA1c 9.5), and hyperglycemia persisted during hospitalization. Glipizide was held, and his insulin regimen was adjusted to Lantus 20 units BID with 8units of lispro insulin with meals and high-dose sliding scale and frequent fingerstick monitoring,targeting BG <180 mg/dL. Glucose levels improved postoperatively. He received diabetes education regarding wound risk and healing. Acute Kidney Injury He developed transient WU during hospitalization, with creatinine peaking at 1.45 mg/dL and subsequently improving to 1.18 mg/dL and 1.03 mg/dL. Renal function was monitored daily, and nephrotoxic agents were avoided when possible. Essential Hypertension His blood pressure remained well controlled during admission. He continued home antihypertensive therapy with lisinopril and hydrochlorothiazide. Hyperlipidemia He continued atorvastatin therapy throughout hospitalization. Major Depressive Disorder He continued bupropion therapy during admission. Osteoarthritis No acute issues related to osteoarthritis were noted during hospitalization. Physical Therapy and Discharge Planning Postoperatively, he was evaluated by physical therapy and demonstrated good mobility with rolling walker and crutches, and was deemed safe for discharge home with assistance and equipment. Recommend Protected Wait Bearing with forefoot offloading shoe. He was instructed to maintain protected weightbearing and follow up in wound care clinic in 2 weeks. Medications Discontinued Vancomycin and meropenem were discontinued following identification of Staphylococcus aureus and transition to cefazolin for completion of antibiotic therapy. Follow-up He requires outpatient wound care follow-up and completion of the prescribed antibiotic course. Diabetes management and monitoring of renal function are recommended. Surgeries and Procedures Procedures performed in this encounter Procedures Case Request Operating Room: AMPUTATION,TOE AMPUTATION,TOE (Left) Medication List .. acetaminophen 500 MG tablet Commonly known as: Tylenol Take 2 tablets by mouth every 8 hours as needed for pain. Alcoh-Wipe sheet Use as directed. atorvastatin 40 MG tablet Commonly known as: Lipitor Take 1 tablet by mouth daily. Blood Glucose Monitoring Suppl device Test three times daily buPROPion SR 150 MG 12 hr tablet Commonly known as: Wellbutrin SR Take 1 tablet by mouth daily. Do not crush, chew, or split. cefadroxil 500 MG capsule Commonly known as: Duricef Take 1 capsule by mouth 2 times a day for 2 days. cholecalciferol 25 MCG (1000 UT) tablet Commonly known as: Vitamin D3 Take 1 tablet by mouth daily. finasteride 5 MG tablet Commonly known as: Proscar Take 1 tablet by mouth daily. Do not crush, chew, or split. glucose blood test strip Test three times daily ibuprofen 400 MG tablet Take 1 tablet by mouth every 8 hours as needed for moderate pain for up to 5 days. Lancets misc Test three times daily Lantus SoloStar 100 UNIT/ML injection pen Generic drug: insulin glargine Inject 20 Units under the skin 2 times a day. lisinopril-hydroCHLOROthiazide 20-12.5 MG tablet Take 2 tablets by mouth daily. multivitamin tablet Take 1 tablet by mouth daily. NovoLOG FLEXPEN 100 UNIT/ML injection pen Generic drug: insulin aspart Inject 8 Units under the skin 3 times a day before meals. Add a correction scale dose as follows: blood sugar 150-199 use 2 units, 200-249 use 4 units, 250-299 use 6 units, 300-349 use 8 units, 350-399 use 10 units, >399 12 units and call provider. Max daily dose 50 units. * pen needle, diabetic 31G X 5 MM misc Use as directed with insulin pen. * pen needle, diabetic 31G X 5 MM misc Use as directed with insulin pen. * This list has 2 medication(s) that are the same as other medications prescribed for you. Read thedirections carefully, and ask your doctor or other care provider to review them with you. Where to Get Your Medications These medications were sent to [facility] - [place], [place] - [address], [facility] [address] Alcoh-Wipe sheet Blood Glucose Monitoring Suppl device cefadroxil 500 MG capsule glucose blood test strip Lancets misc Lantus SoloStar 100 UNIT/ML injection pen NovoLOG FLEXPEN 100 UNIT/ML injection pen pen needle, diabetic 31G X 5 MM misc pen needle, diabetic 31G X 5 MM misc Information about where to get these medications is not yet available Ask your nurse or doctor about these medications acetaminophen 500 MG tablet ibuprofen 400 MG tablet Discharge Diagnosis Medical Problems Active and Resolved Hospital Problems Hospital * (Principal) Cellulitis and abscess of toe of left foot Insulin dependent type 2 diabetes mellitus Essential (primary) hypertension Hyperlipidemia, mixed Major depressive disorder Osteoarthritis Post Discharge Instructions Follow-up with your primary care provider in 1 week. Follow-up with vascular surgery in the wound care clinic: Recommend WTD dressing BID. Follow up in wound care in 2 weeks. Outpatient Follow-Up Future Appointments Date Time Provider Department Center 08/31/2025 11:20 AM Renea Li PA [facility] Test Results Pending At Discharge Pending Labs Order Current Status Surgical Pathology Exam In process AFB Culture, Non Respiratory Source and Acid Fast Stain Preliminary result AFB Culture, Non Respiratory Source and Acid Fast Stain Preliminary result Fungal Culture, Tissue and BACILIO Preliminary result Fungal Culture, Tissue and BACILIO Preliminary result Pertinent Physical Exam At Time of Discharge Physical Exam Constitutional: General: He is not in acute distress. Appearance: He is well-developed. He is not diaphoretic. HENT: Head: Normocephalic and atraumatic. Mouth/Throat: Comments: Normal oral and pharyngeal mucosa Cardiovascular: Rate and Rhythm: Normal rate and regular rhythm. Heart sounds: Normal heart sounds. Pulmonary: Effort: Pulmonary effort is normal. Breath sounds: Normal breath sounds. Abdominal: General: Bowel sounds are normal. Palpations: Abdomen is soft. Tenderness: There is no abdominal tenderness. Skin: General: Skin is warm and dry. Neurological: Mental Status: He is alert. Discharge Disposition/Condition Disposition: Home Condition: Stable (s/sx potential problems absent or manageable) I spent >30 minutes of patient care and instruction time in preparation for this discharge. * Hospital Course - Uche Fonseca MD - 08/16/2025 12:25 PM EST 4th Toe LLE Cellulitis with puncture wound and foci of gas on CT Pt has a h/o IDDM with a high Hgb A1c 9.5 Septic Joint. Effusion of th joint space of the 4th digit noted on MRI Also foci of gas --> MRI r/o necrotizing infection and osteomyelitis ID consulted on 08/08/25 we appreciate their recommendations Pt continues on Vancomycin and meropenem Plan: Continue on Vancomycin and meropenem Await recommendations from ID given updated info CRP 178-> 91.2-> 52 Improving Blood cx NGTD x 5 days MR showed possible involvement of left 4th PIP joint. 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 ID rec'd stopping meropenem and vancomycin and starting cefazolin to complete 5 to 7 days of antibiotics after amputation. Vas surgery rec'd: - Recommend WTD dressing changes BID by nursing - Recommend Protected Wait Bearing with forefoot offloading shoe. PT/OT consulted Reviewed importance of using forefoot offloading shoe. IDDM Type II Last Hgb A1c 9.5 Continue to hold home Glipizide Increased Lantus to 20 U BID on 08/09 BG - improved a bit. Plan: Lantus 20 u BID With high dose sliding scale and more frequent FS until BG <180 mg /fl Goal BG 140-180 mg/dl Daily CMP. Glucoses improved today 177-195 HTN ( essential) BP controlled At home he is on Lisinopril hydrochlorothiazide combo 20/12.5mg 2 tabs by mouth daily Plan: Hydrochlorothiazide 25mg PO daily Lisinopril 40mg PO OD WU resolving Cr on 08/08 1.45-> 1.18 Continue to monitor Avoid nephrotoxins. Overall improved. Chronic Medical conditions: HLD Atorvastatin 40 mg MDD (Major Depressive Disorder) Continue on Wellbutrin 150 mg daily Vit D deficiency On Vit D replacement Vitamin D level : 78.2 (08/10/25) BPH On Proscar 5 mg daily Monitor UOP Notify MD of hematuria or no UOP for 6 hrs * Consults - Margaret Steve RN - 08/16/2025 12:00 PM ESTAssociated Order(s): IP CONSULT TO DIABETIC EDUCATION Adult Diabetes Education Team Note Hi Goode 60 y.o. male CSN: [id number] This is a 60 y.o. male patient was admitted to [facility] with the diagnosis of Cellulitis, Dm education for A1c>9. Labs: A1C 9.5 FSBG-PRN FSBG FSBG Other FSBG-AC FSBG-HS FSBG-3a POCBG Ranges:182-310 Current Diabetes Regimen: Glargine 20 units once a day Lispro 8 units Tid with meals Lispro 2:50>150 TID with meals Lispro 1:50>250 at night and 0300 Education Diabetic Education Performed with patientDiscussed what Dm is, different types and ways to manage. Medication Education instructions given: The use of insulinReviewed current insulin doses in reference Glargine 20 units once a day, Lispro 8 units Tid with meals, Lispro 2:50>150 TID with meals. Patient verbalized understanding of current insulin dose. Diabetic Monitoring Education instructions given: Test Times Target Goals Action to take for results outside the 80-180 Hyperglycemia causes, signs, symptoms and treatmentDiscussed what hyperglycemia is and ways to manage. Hypoglycemia Management instructions given: Symptoms, causes, and treatmentDiscussed the rule of 15. Nutrition instructions given: Plate method Carbohydrate containing foods Label Reading Carbohydrate Counting Sick Day Management instructions given: When to call the doctor Complications and Hygiene instructions given: Complications Prevention Follow Ups: Provided with educational literature and the diabetic KDPCP diabetes basic booklet, My plate handout, current insulin cheat sheet Diabetes Education Team Recommendations: Notified /uche Fonseca of Dm education completion. Education Time 60 minutes Margaret Steve RN * Progress Notes - Jessica Dunne MD - 08/16/2025 9:26 AM EST BONE AND JOINT INFECTIOUS DISEASE PROGRESS NOTE Attending: Uche Fonseca MD Subjective: Middle aged man lying in bed with no new complaints, no fever, no chills, his left foot is bandagedclean and dry. Amputated site healing satisfactorily. Objective: Visit Vitals BP 119/76 Pulse 59 Temp 36.7 ??C (98.1 ??F) Resp 18 Ht 1.702 m (5' 7 ) Wt 80.2 kg (176 lb 12.9 oz) SpO2 91% BMI 27.69 kg/m?? Smoking Status Never BSA 1.95 m?? Physical exam: GEN: alert, no acute distress HEAD: Normocephalic, atraumatic EYES: EOMI, no scleral icterus ENT: normal hearing, OP clear, moist mucosa CHEST: within normal limits, no indwelling devices PULM: CTA bilaterally, good air movement CV: bradycardia, regular rhythm, no murmur appreciated ABD: soft, nontender, nondistended, no palpable masses CHRISTIE: Muscle atrophy noticed in both feet, left foot bandaged clean and dry SKIN: warm, dry, no rashes PSYCH: cooperative, appropriate affect Labs: CBC WBC 6.91 Hb 13.7 Plt 214 Hct 40.1 ANC 4.13 BMP Na 133 (L) Cl 100 BUN 30 (H) Glu 198 (H) K 4.1 Co2 22 Cr 1.03 Mg 2.1, Phos 2.6 LFT AST 57 (H) AlkPhos 90 T Prot 6.4 ALK 55 (H) Bili <0.2 (L) Alb ?? D.Bili ?? Results from last 7 days Lab Units 08/16/25 0257 08/10/25 0322 CRP mg/L 8.6* 52.4* Results from last 7 days Lab Units 08/11/25 0330 SED RATE mm/hr 58* Medications: Current Medications[1] Imaging/Studies: FL Less than 1 Hour Intraoperative Images were obtained for surgical purposes. See Andie Moyer S's surgical note in the patient's chart for the findings. Micro: 08/07/25: Blood culture: no growth at day 3 08/07/2025 HIV fay negative 08/07/2025 HCV fay negative Antibiotics: Vancomycin:08/08/25-present Zosyn:08/07/25-present Assessment: Hi Goode is a 60 y.o. male with history of insulin-dependent T2DM, HTN, and HLD who presented to [facility] on 08/07/25 as a transfer from [facility] with a left 4th toe puncture wound of two days duration. 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 Pt reports he removed nail andcleaned wound. He developed pain/swelling of L 4th toe 08/06/2025 and seen at [facility] where he was given Levofloxacin and Clindamycin, tetanus booster. CT done at OSH reportedly showed small focus of gas in toe and he was transferred to 08/07/2025 . Pt seen by Gen Surgery who recommended medical management. MRI L foot(08/09/25) showed possible LEFT PIP septic arthritis. ID team were consulted (08/10) to provide recommendations on antibiotics and further workup for puncture wound. Surgical intervention was recommended for source control along with vancomycin and meropenem. Today, he has no new complaints, no fever and says pain has completely subsided in the left foot. His WBC(08/16) is normal. He had amputation for his left 4th toe carried out on 08/11 because hehad osteomyelitis since the toe ulcer extended to the bone. Intra op all infected and devitalized material was removed, there was no abscess seen. The pathology showed no OM at the margins.The tissueculture (08/11) grew MSSA. He was converted to cefazolin on 08/13 to complete therapy (08/18)for seven days post op. If he is discharged before them , cefazolin should be changed to p.o cefadroxil 500mg bid to complete total seven days of antibiotic therapy.. ID Problem List: -Diabetic foot infection -Osteomyelitis of left 4th toe -T2DM which complicates management Recommendations: -Continue cefazolin while inpatient -on discharge change to po cefadroxil to complete 7 days of therapy post op( to be stopped 08/18/25) -If he remains in-patient, he should have weekly CBC,Creatinine and BUN done Thank you for the consult - ID will signoff at this time. Please call/page if any questions. Anne Downs MD Infectious Disease Fellow PGY-4 I saw and evaluated the patient. I discussed the case with the resident/fellow and agree with the findings and plan as documented. Jessica Dunne MD [1] Current Facility-Administered Medications Medication Dose Route Frequency Provider Last Rate Last Admin acetaminophen (Tylenol) tablet 1,000 mg 1,000 mg Oral q6h PRN Mery Garcia PA 1,000 mg at 08/14/252015 atorvastatin (Lipitor) tablet 40 mg 40 mg Oral Nightly Mery Garcia PA 40 mg at 08/15/252111 buPROPion SR (Wellbutrin SR) 12 hr tablet 150 mg 150 mg Oral Daily Mery Garcia PA 150 mg at 08/15/25800 ceFAZolin (Ancef) injection 2 g 2 g Intravenous q8h Uche Fonseca MD 2 g at 08/16/25 0551 cholecalciferol (Vitamin D-3) tablet 1,000 Units 1,000 Units Oral Daily Mery Garcia PA1,000 Units at 08/15/25 08 glucose (Glutose) 40 % oral gel 15-30 grams of glucose 15-30 grams of glucose Sublingual q15 min PRN Mery Garcia PA Or dextrose 10 % (D10W) bolus 125 mL 125 mL Intravenous q15 min PRN Mery Garcia PA Or dextrose 10 % (D10W) bolus 250 mL 250 mL Intravenous q15 min PRN Mery Garcia PA Or glucagon (human recombinant) injection 1 mg 1 mg Intramuscular q15 min PRN Mery Garcia PA docusate sodium (Colace) capsule 250 mg 250 mg Oral Daily Fabienne Palm MD 250 mg at 08/15/25800 finasteride (Proscar) tablet 5 mg 5 mg Oral Daily Mery Garcia PA 5 mg at 08/15/25800 hydroCHLOROthiazide (HYDRODiuril) tablet 25 mg 25 mg Oral Daily Mery Garcia PA 25 mg at 08/15/25800 ibuprofen tablet 400 mg 400 mg Oral q6h PRN Mery Garcia PA 400 mg at 08/14/252015 insulin glargine-yfgn 100 UNIT/ML injection 20 Units 20 Units Subcutaneous BID Fabienne Palm MD 20 Units at 08/15/252111 insulin lispro (Admelog) 100 units/mL injection - Correction - Resistant Dose 0-10 Units Subcutaneous TID with meals Fabienne Palm MD 2 Units at 08/15/251642 insulin lispro (Admelog) injection - Correction - Nighttime Dose 0-3 Units Subcutaneous Twice at night Fabienne Palm MD 1 Units at 08/15/252112 Insulin Lispro (Admelog, HumaLOG) 100 UNIT/ML injection 8 Units 8 Units Subcutaneous TID with mealsUche Fonseca MD 8 Units at 08/15/251640 lisinopril tablet 40 mg 40 mg Oral Daily Mery Garcia PA 40 mg at 08/15/25800 melatonin tablet 3 mg 3 mg Oral Nightly PRN Mery Garcia PA 3 mg at 08/14/252015 multivitamin (Theragran-M) tablet 1 tablet 1 tablet Oral Daily Mery Garcia PA 1 tabletat 08/15/25 08 polyethylene glycol (Miralax) packet 17 g 17 g Oral Daily Fabienne Plam MD 17 g at 804 sodium chloride 0.9 % flush 10 mL 10 mL Intravenous q12h Mery Garcia PA 10 mL at 08/15/25 1402 And sodium chloride 0.9 % flush 10 mL 10 mL Intravenous PRN Mery Garcia PA * Care Plan - Amisha Velásquez RN - 08/15/2025 10:22 PM EST Problem: Adult Inpatient Plan of Care Goal: Plan of Care Review Outcome: Ongoing, Progressing Flowsheets (Taken 08/15/20252219) Progress: improving Plan of Care Reviewed With: patient Goal: Patient-Specific Goal (Individualized) Outcome: Ongoing, Progressing Flowsheets (Taken 08/15/20251999) Patient/Family-Specific Goals (Include Timeframe): pt will be free of falls or injury today Individualized Care Needs: safety Anxieties, Fears or Concerns: none Goal: Absence of Hospital-Acquired Illness or Injury Outcome: Ongoing, Progressing Intervention: Identify and Manage Fall Risk Flowsheets (Taken 08/15/20252219) Safety Promotion/Fall Prevention: assistive device/personal items within reach clutter-free environment maintained fall prevention program maintained nonskid shoes/slippers when out of bed mobility aid in reach lighting adjusted room organization consistent safety round/check completed Intervention: Prevent Infection Flowsheets (Taken 08/15/20252219) Infection Prevention: environmental surveillance performed equipment surfaces disinfected hand hygiene promoted personal protective equipment utilized rest/sleep promoted single patient room provided Goal: Optimal Comfort and Wellbeing Outcome: Ongoing, Progressing Intervention: Monitor Pain and Promote Comfort Flowsheets (Taken 08/15/20252219) Pain Management Interventions: pain management plan reviewed with patient/caregiver Intervention: Provide Person-Centered Care Flowsheets (Taken 08/15/20252219) Trust Relationship/Rapport: care explained choices provided emotional support provided empathic listening provided questions answered questions encouraged reassurance provided thoughts/feelings acknowledged Problem: Pain Acute Goal: Optimal Pain Control and Function Outcome: Ongoing, Progressing Intervention: Optimize Psychosocial Wellbeing Flowsheets (Taken 08/15/20252219) Supportive Measures: active listening utilized goal-setting facilitated decision-making supported Diversional Activities: television Spiritual Activities Assistance: personal rituals encouraged Intervention: Prevent or Manage Pain Flowsheets (Taken 08/15/20252219) Sensory Stimulation Regulation: quiet environment promoted lighting decreased care clustered Bowel Elimination Promotion: adequate fluid intake promoted Sleep/Rest Enhancement: awakenings minimized consistent schedule promoted regular sleep/rest pattern promoted room darkened noise level reduced Medication Review/Management: medications reviewed Problem: Skin or Soft Tissue Infection Goal: Absence of Infection Signs and Symptoms Outcome: Ongoing, Progressing Intervention: Minimize and Manage Infection Progression Flowsheets (Taken 08/15/20252219) Infection Prevention: environmental surveillance performed equipment surfaces disinfected hand hygiene promoted personal protective equipment utilized rest/sleep promoted single patient room provided Problem: Wound Goal: Optimal Wound Healing Outcome: Ongoing, Progressing Intervention: Promote Wound Healing Flowsheets (Taken 08/15/20252219) Sleep/Rest Enhancement: awakenings minimized consistent schedule promoted regular sleep/rest pattern promoted room darkened noise level reduced Problem: Comorbidity Management Goal: Blood Glucose Level Within Target Range Outcome: Ongoing, Progressing Intervention: Monitor and Manage Glycemia Flowsheets (Taken 08/15/20252219) Medication Review/Management: medications reviewed Goal: Maintenance of Osteoarthritis Symptom Control Outcome: Ongoing, Progressing Intervention: Maintain Osteoarthritis Symptom Control Flowsheets (Taken 08/15/20252219) Activity Management: activity adjusted per tolerance Assistive Device Utilized: crutches Medication Review/Management: medications reviewed Problem: Fall Injury Risk Goal: Absence of Fall and Fall-Related Injury Outcome: Ongoing, Progressing Intervention: Identify and Manage Contributors Flowsheets (Taken 08/15/20252219) Medication Review/Management: medications reviewed Self-Care Promotion: BADL personal objects within reach BADL personal routines maintained adaptive equipment use encouraged independence encouraged Intervention: Promote Injury-Free Environment Flowsheets (Taken 08/15/20252219) Safety Promotion/Fall Prevention: assistive device/personal items within reach clutter-free environment maintained fall prevention program maintained nonskid shoes/slippers when out of bed mobility aid in reach lighting adjusted room organization consistent safety round/check completed Problem: Skin Injury Risk Increased Goal: Skin Health and Integrity Outcome: Ongoing, Progressing Intervention: Optimize Skin Protection Flowsheets (Taken 08/15/20252219) Activity Management: activity adjusted per tolerance Pressure Reduction Techniques: frequent weight shift encouraged Head of Bed (HOB) Positioning: HOB at 30 degrees * Progress Notes - Uche Fonseca MD - 08/15/2025 4:50 PM EST Subjective No events overnight. He has no new complaints. Denies fever, SOA, CP, N/V Review of Systems Objective Vitals Temp: [36.3 ??C (97.3 ??F)-36.8 ??C (98.2 ??F)] 36.6 ??C (97.9 ??F) Heart Rate: [61-73] 68 Resp: [16] 16 BP: (110-118)/(66-75) 118/75 Physical Exam Constitutional: General: He is not in acute distress. Appearance: He is well-developed. He is not diaphoretic. HENT: Head: Normocephalic and atraumatic. Nose: Nose normal. Mouth/Throat: Comments: Normal oral and pharyngeal mucosa Cardiovascular: Rate and Rhythm: Normal rate and regular rhythm. Heart sounds: Normal heart sounds. Pulmonary: Effort: Pulmonary effort is normal. Breath sounds: Normal breath sounds. Abdominal: General: Bowel sounds are normal. Palpations: Abdomen is soft. Tenderness: There is no abdominal tenderness. Skin: General: Skin is warm and dry. Neurological: Mental Status: He is alert. 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 Effusion of th joint space of the 4th digit noted on MRI Also foci of gas --> MRI r/o necrotizing infection and osteomyelitis ID consulted on 08/08/25 we appreciate their recommendations Pt continues on Vancomycin and meropenem Plan: Continue on Vancomycin and meropenem Await recommendations from ID given updated info CRP 178-> 91.2-> 52 Improving Blood cx NGTD x 5 days MR showed possible involvement of left 4th PIP joint. 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 ID rec'd stopping meropenem and vancomycin and starting cefazolin to complete 5 to 7 days of antibiotics after amputation. [facility] surgery rec'd: - Recommend WTD dressing changes BID by nursing - Recommend Protected Wait Bearing with forefoot offloading shoe. PT/OT consulted Reviewed importance of using forefoot offloading shoe. IDDM Type II Last Hgb A1c 9.5 Continue to hold home Glipizide Increased Lantus to 20 U BID on 08/09 BG - improved a bit. Plan: Lantus 20 u BID With high dose sliding scale and more frequent FS until BG <180 mg /fl Goal BG 140-180 mg/dl Daily CMP. Glucoses improved today 177-195 HTN ( essential) BP controlled At home he is on Lisinopril hydrochlorothiazide combo 20/12.5mg 2 tabs by mouth daily Plan: Hydrochlorothiazide 25mg PO daily Lisinopril 40mg PO OD WU resolving Cr on 08/08 1.45-> 1.18 Continue to monitor Avoid nephrotoxins. Overall improved. Chronic Medical conditions: HLD Atorvastatin 40 mg MDD (Major Depressive Disorder) Continue on Wellbutrin 150 mg daily Vit D deficiency On Vit D replacement Vitamin D level : 78.2 (08/10/25) BPH On Proscar 5 mg daily Monitor UOP Notify MD of hematuria or no UOP for 6 hrs Medically Ready for Discharge:Anticipated Tomorrow * Care Plan - Olga Tomlin RN - 08/15/2025 10:23 AM EST Problem: Adult Inpatient Plan of Care Goal: Absence of Hospital-Acquired Illness or Injury Outcome: Ongoing, Not Progressing Intervention: Identify and Manage Fall Risk Flowsheets (Taken 08/14/20252103 by Tamara Lou RN) Safety Promotion/Fall Prevention: activity supervised fall prevention program maintained nonskid shoes/slippers when out of bed safety round/check completed clutter-free environment maintained Intervention: Prevent Skin Injury Flowsheets Taken 08/15/2025 1020 by Olga Tomlin RN Skin Protection: protective footwear used transparent dressing maintained Taken 08/14/20251999 by Tamara Lou RN Body Position: weight shifting Intervention: Prevent Infection Flowsheets (Taken 08/15/2025 1020) Infection Prevention: environmental surveillance performed equipment surfaces disinfected hand hygiene promoted single patient room provided * Care Plan - Tamara Lou RN - 08/14/2025 9:07 PM EST Problem: Adult Inpatient Plan of Care Goal: Plan of Care Review Outcome: Ongoing, Progressing Flowsheets (Taken 08/14/2025 07 by Matilde Ornelas, ORLIN) Progress: improving Plan of Care Reviewed With: patient Goal: Patient-Specific Goal (Individualized) Outcome: Ongoing, Progressing Flowsheets (Taken 08/14/20252103) Patient/Family-Specific Goals (Include Timeframe): patient to remain free of falls during this shift Individualized Care Needs: safety Anxieties, Fears or Concerns: none stated Goal: Absence of Hospital-Acquired Illness or Injury Outcome: Ongoing, Progressing Goal: Optimal Comfort and Wellbeing Outcome: Ongoing, Progressing Problem: Pain Acute Goal: Optimal Pain Control and Function Outcome: Ongoing, Progressing Intervention: Optimize Psychosocial Wellbeing Flowsheets (Taken 08/14/20252103) Supportive Measures: active listening utilized Diversional Activities: smartphone television Spiritual Activities Assistance: affirmation provided Problem: Skin or Soft Tissue Infection Goal: Absence of Infection Signs and Symptoms Outcome: Ongoing, Progressing Intervention: Minimize and Manage Infection Progression Flowsheets (Taken 08/14/20252103) Infection Management: aseptic technique maintained Fever Reduction/Comfort Measures: lightweight bedding Infection Prevention: rest/sleep promoted single patient room provided Problem: Wound Goal: Optimal Wound Healing Outcome: Ongoing, Progressing Intervention: Promote Wound Healing Flowsheets (Taken 08/14/20252103) Sleep/Rest Enhancement: awakenings minimized room darkened regular sleep/rest pattern promoted Problem: Comorbidity Management Goal: Blood Glucose Level Within Target Range Outcome: Ongoing, Progressing Goal: Maintenance of Osteoarthritis Symptom Control Outcome: Ongoing, Progressing Intervention: Maintain Osteoarthritis Symptom Control Flowsheets (Taken 08/14/20252103) Activity Management: up ad jw Adaptive Equipment Use: used with assistance Assistive Device Utilized: crutches Medication Review/Management: medications reviewed Problem: Fall Injury Risk Goal: Absence of Fall and Fall-Related Injury Outcome: Ongoing, Progressing Intervention: Promote Injury-Free Environment Flowsheets (Taken 08/14/20252103) Safety Promotion/Fall Prevention: activity supervised fall prevention program maintained nonskid shoes/slippers when out of bed safety round/check completed clutter-free environment maintained * Progress Notes - Uche Fonseca MD - 08/14/2025 3:26 PM EST Subjective Well overnight. He has no new complaints. Denies fever, SOA, CP, N/V Review of Systems Objective Vitals Temp: [36.5 ??C (97.7 ??F)-36.8 ??C (98.2 ??F)] 36.5 ??C (97.7 ??F) Heart Rate: [60-75] 69 Resp: [16-18] 16 BP: (108-123)/(63-74) 108/65 Physical Exam Constitutional: General: He is not in acute distress. Appearance: He is well-developed. He is not diaphoretic. HENT: Head: Normocephalic and atraumatic. Nose: Nose normal. Mouth/Throat: Comments: Normal oral and pharyngeal mucosa Cardiovascular: Rate and Rhythm: Normal rate and regular rhythm. Heart sounds: Normal heart sounds. Pulmonary: Effort: Pulmonary effort is normal. Breath sounds: Normal breath sounds. Abdominal: General: Bowel sounds are normal. Palpations: Abdomen is soft. Tenderness: There is no abdominal tenderness. Skin: General: Skin is warm and dry. Neurological: Mental Status: He is alert. 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 Effusion of th joint space of the 4th digit noted on MRI Also foci of gas --> MRI r/o necrotizing infection and osteomyelitis ID consulted on 08/08/25 we appreciate their recommendations Pt continues on Vancomycin and meropenem Plan: Continue on Vancomycin and meropenem Await recommendations from ID given updated info CRP 178-> 91.2-> 52 Improving Blood cx NGTD x 5 days MR showed possible involvement of left 4th PIP joint. 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 ID rec'd stopping meropenem and vancomycin and starting cefazolin to complete 5 to 7 days of antibiotics after amputation. [facility] surgery rec'd: - Recommend WTD dressing changes BID by nursing - Recommend Protected Wait Bearing with forefoot offloading shoe. PT/OT consulted Reviewed importance of using forefoot offloading shoe. IDDM Type II Last Hgb A1c 9.5 Continue to hold home Glipizide Increased Lantus to 20 U BID on 08/09 BG - improved a bit. Plan: Lantus 20 u BID With high dose sliding scale and more frequent FS until BG <180 mg /fl Goal BG 140-180 mg/dl Daily CMP. Glucoses improved today 177-195 HTN ( essential) BP controlled At home he is on Lisinopril hydrochlorothiazide combo 20/12.5mg 2 tabs by mouth daily Plan: Hydrochlorothiazide 25mg PO daily Lisinopril 40mg PO OD WU resolving Cr on 08/08 1.45-> 1.18 Continue to monitor Avoid nephrotoxins. Overall improved. Chronic Medical conditions: HLD Atorvastatin 40 mg MDD (Major Depressive Disorder) Continue on Wellbutrin 150 mg daily Vit D deficiency On Vit D replacement Vitamin D level : 78.2 (08/10/25) BPH On Proscar 5 mg daily Monitor UOP Notify MD of hematuria or no UOP for 6 hrs Medically Ready for Discharge:Anticipated in 2-4 Days * Care Plan - Matilde Ornelas RN - 08/14/2025 7:07 AM EST Problem: Adult Inpatient Plan of Care Goal: Plan of Care Review Outcome: Ongoing, Progressing Flowsheets (Taken 08/14/2025703) Progress: improving Plan of Care Reviewed With: patient Goal: Patient-Specific Goal (Individualized) Outcome: Ongoing, Progressing Flowsheets (Taken 08/14/2025699) Patient/Family-Specific Goals (Include Timeframe): pt will have no falls this shift Individualized Care Needs: safety Anxieties, Fears or Concerns: safety Goal: Absence of Hospital-Acquired Illness or Injury Outcome: Ongoing, Progressing Intervention: Identify and Manage Fall Risk Flowsheets (Taken 08/14/2025703) Safety Promotion/Fall Prevention: activity supervised Intervention: Prevent Skin Injury Flowsheets (Taken 08/14/2025703) Body Position: weight shifting Skin Protection: drying agents applied Intervention: Prevent and Manage VTE (Venous Thromboembolism) Risk Flowsheets (Taken 08/14/2025703) VTE Prevention/Management: medication Intervention: Prevent Infection Flowsheets (Taken 08/14/2025703) Infection Prevention: rest/sleep promoted Goal: Optimal Comfort and Wellbeing Outcome: Ongoing, Progressing Intervention: Monitor Pain and Promote Comfort Flowsheets (Taken 08/14/2025703) Pain Management Interventions: rest Intervention: Provide Person-Centered Care Flowsheets (Taken 08/14/2025703) Trust Relationship/Rapport: care explained Problem: Pain Acute Goal: Optimal Pain Control and Function Outcome: Ongoing, Progressing Intervention: Optimize Psychosocial Wellbeing Flowsheets (Taken 08/14/2025703) Supportive Measures: active listening utilized Diversional Activities: television Spiritual Activities Assistance: affirmation provided Intervention: Develop Pain Management Plan Flowsheets (Taken 08/14/2025703) Pain Management Interventions: rest Intervention: Prevent or Manage Pain Flowsheets (Taken 08/14/2025703) Sensory Stimulation Regulation: television on Sleep/Rest Enhancement: regular sleep/rest pattern promoted awakenings minimized Medication Review/Management: medications reviewed Problem: Skin or Soft Tissue Infection Goal: Absence of Infection Signs and Symptoms Outcome: Ongoing, Progressing Intervention: Minimize and Manage Infection Progression Flowsheets (Taken 08/14/2025703) Infection Management: aseptic technique maintained Fever Reduction/Comfort Measures: lightweight bedding Infection Prevention: rest/sleep promoted Intervention: Provide Meticulous Infection Site Care Flowsheets (Taken 08/14/2025703) Topical Inflammation Care: other (see comments) Problem: Wound Goal: Optimal Wound Healing Outcome: Ongoing, Progressing Intervention: Promote Wound Healing Flowsheets (Taken 08/14/2025703) Sleep/Rest Enhancement: regular sleep/rest pattern promoted awakenings minimized Problem: Comorbidity Management Goal: Maintenance of Asthma Control Outcome: Ongoing, Progressing Intervention: Maintain Asthma Symptom Control Flowsheets (Taken 08/14/2025703) Medication Review/Management: medications reviewed Goal: Maintenance of Behavioral Health Symptom Control Outcome: Ongoing, Progressing Intervention: Maintain Behavioral Health Symptom Control Flowsheets (Taken 08/14/2025703) Medication Review/Management: medications reviewed Goal: Maintenance of COPD Symptom Control Outcome: Ongoing, Progressing Intervention: Maintain COPD (Chronic Obstructive Pulmonary Disease) Symptom Control Flowsheets (Taken 08/14/2025703) Breathing Techniques/Airway Clearance: other (see comments) Medication Review/Management: medications reviewed Goal: Blood Glucose Level Within Target Range Outcome: Ongoing, Progressing Intervention: Monitor and Manage Glycemia Flowsheets (Taken 08/14/2025703) Medication Review/Management: medications reviewed Goal: Maintenance of Heart Failure Symptom Control Outcome: Ongoing, Progressing Intervention: Maintain Heart Failure Management Flowsheets (Taken 08/14/2025703) Medication Review/Management: medications reviewed Goal: Blood Pressure in Desired Range Outcome: Ongoing, Progressing Intervention: Maintain Blood Pressure Management Flowsheets (Taken 08/14/2025703) Medication Review/Management: medications reviewed Goal: Maintenance of Osteoarthritis Symptom Control Outcome: Ongoing, Progressing Intervention: Maintain Osteoarthritis Symptom Control Flowsheets (Taken 08/14/2025703) Activity Management: up ad jw Adaptive Equipment Use: used independently Assistive Device Utilized: crutches Medication Review/Management: medications reviewed Goal: Bariatric Home Regimen Maintained Outcome: Ongoing, Progressing Intervention: Maintain and Manage Postbariatric Surgery Care Flowsheets (Taken 08/14/2025703) Medication Review/Management: medications reviewed Goal: Maintenance of Seizure Control Outcome: Ongoing, Progressing Intervention: Maintain Seizure Symptom Control Flowsheets (Taken 08/14/2025703) Sensory Stimulation Regulation: television on Medication Review/Management: medications reviewed Seizure Precautions: activity supervised Problem: Fall Injury Risk Goal: Absence of Fall and Fall-Related Injury Outcome: Ongoing, Progressing Intervention: Identify and Manage Contributors Flowsheets (Taken 08/14/2025703) Medication Review/Management: medications reviewed Self-Care Promotion: BADL personal objects within reach Intervention: Promote Injury-Free Environment Flowsheets (Taken 08/14/2025703) Safety Promotion/Fall Prevention: activity supervised * Care Plan - Gucci Abel RN - 08/13/2025 8:01 PM EST Problem: Adult Inpatient Plan of Care Goal: Plan of Care Review Outcome: Ongoing, Progressing Flowsheets Taken 08/13/20251954 by Gucci Abel RN Progress: improving Outcome Evaluation: Pt understands plan of care Taken 08/13/2025 1035 by Valerie Chaidez RN Plan of Care Reviewed With: patient Goal: Patient-Specific Goal (Individualized) Outcome: Ongoing, Progressing Flowsheets (Taken 08/13/20251954) Patient/Family-Specific Goals (Include Timeframe): Pt will remain free of injury during the shift Individualized Care Needs: Pain management Anxieties, Fears or Concerns: None stated Goal: Absence of Hospital-Acquired Illness or Injury Outcome: Ongoing, Progressing Intervention: Identify and Manage Fall Risk Flowsheets (Taken 08/13/20251954) Safety Promotion/Fall Prevention: activity supervised assistive device/personal items within reach clutter-free environment maintained fall prevention program maintained lighting adjusted mobility aid in reach nonskid shoes/slippers when out of bed room organization consistent safety round/check completed toileting scheduled Intervention: Prevent Skin Injury Flowsheets (Taken 08/13/20251954) Body Position: weight shifting Skin Protection: incontinence pads utilized Intervention: Prevent and Manage VTE (Venous Thromboembolism) Risk Flowsheets (Taken 08/13/20251954) VTE Prevention/Management: education provided Intervention: Prevent Infection Flowsheets (Taken 08/13/20251954) Infection Prevention: cohorting utilized environmental surveillance performed equipment surfaces disinfected hand hygiene promoted personal protective equipment utilized rest/sleep promoted single patient room provided Goal: Optimal Comfort and Wellbeing Outcome: Ongoing, Progressing Intervention: Monitor Pain and Promote Comfort Flowsheets (Taken 08/13/20251954) Pain Management Interventions: medication (see MAR) pillow support provided position adjusted quiet environment facilitated relaxation techniques promoted pain management plan reviewed with patient/caregiver care clustered Intervention: Provide Person-Centered Care Flowsheets (Taken 08/13/20251954) Trust Relationship/Rapport: care explained choices provided emotional support provided empathic listening provided questions answered questions encouraged reassurance provided thoughts/feelings acknowledged Problem: Pain Acute Goal: Optimal Pain Control and Function Outcome: Ongoing, Progressing Intervention: Optimize Psychosocial Wellbeing Flowsheets (Taken 08/13/20251954) Supportive Measures: active listening utilized decision-making supported goal-setting facilitated mindfulness techniques promoted positive reinforcement provided problem-solving facilitated relaxation techniques promoted self-care encouraged self-reflection promoted verbalization of feelings encouraged Diversional Activities: television Spiritual Activities Assistance: affirmation provided personal rituals encouraged Intervention: Develop Pain Management Plan Flowsheets (Taken 08/13/20251954) Pain Management Interventions: medication (see MAR) pillow support provided position adjusted quiet environment facilitated relaxation techniques promoted pain management plan reviewed with patient/caregiver care clustered Intervention: Prevent or Manage Pain Flowsheets (Taken 08/13/20251954) Sensory Stimulation Regulation: television on care clustered lighting decreased Bowel Elimination Promotion: adequate fluid intake promoted Sleep/Rest Enhancement: awakenings minimized consistent schedule promoted noise level reduced regular sleep/rest pattern promoted relaxation techniques promoted room darkened Medication Review/Management: medications reviewed Problem: Skin or Soft Tissue Infection Goal: Absence of Infection Signs and Symptoms Outcome: Ongoing, Progressing Intervention: Minimize and Manage Infection Progression Flowsheets (Taken 08/13/20251954) Infection Management: aseptic technique maintained Fever Reduction/Comfort Measures: lightweight bedding lightweight clothing Infection Prevention: cohorting utilized environmental surveillance performed equipment surfaces disinfected hand hygiene promoted personal protective equipment utilized rest/sleep promoted single patient room provided Isolation Precautions: precautions maintained Problem: Wound Goal: Optimal Wound Healing Outcome: Ongoing, Progressing Intervention: Promote Wound Healing Flowsheets (Taken 08/13/20251954) Sleep/Rest Enhancement: awakenings minimized consistent schedule promoted noise level reduced regular sleep/rest pattern promoted relaxation techniques promoted room darkened Problem: Comorbidity Management Goal: Maintenance of Asthma Control Intervention: Maintain Asthma Symptom Control Flowsheets (Taken 08/13/20251954) Medication Review/Management: medications reviewed Problem: Comorbidity Management Goal: Maintenance of Asthma Control Outcome: Ongoing, Progressing Intervention: Maintain Asthma Symptom Control Flowsheets (Taken 08/13/20251954) Medication Review/Management: medications reviewed Goal: Maintenance of Behavioral Health Symptom Control Outcome: Ongoing, Progressing Intervention: Maintain Behavioral Health Symptom Control Flowsheets (Taken 08/13/20251954) Medication Review/Management: medications reviewed Goal: Maintenance of COPD Symptom Control Outcome: Ongoing, Progressing Intervention: Maintain COPD (Chronic Obstructive Pulmonary Disease) Symptom Control Flowsheets (Taken 08/13/20251954) Medication Review/Management: medications reviewed Goal: Blood Glucose Level Within Target Range Outcome: Ongoing, Progressing Intervention: Monitor and Manage Glycemia Flowsheets (Taken 08/13/20251954) Medication Review/Management: medications reviewed Goal: Maintenance of Heart Failure Symptom Control Outcome: Ongoing, Progressing Intervention: Maintain Heart Failure Management Flowsheets (Taken 08/13/20251954) Medication Review/Management: medications reviewed Goal: Blood Pressure in Desired Range Outcome: Ongoing, Progressing Intervention: Maintain Blood Pressure Management Flowsheets (Taken 08/13/20251954) Medication Review/Management: medications reviewed Goal: Maintenance of Osteoarthritis Symptom Control Outcome: Ongoing, Progressing Intervention: Maintain Osteoarthritis Symptom Control Flowsheets (Taken 08/13/20251954) Activity Management: activity adjusted per tolerance Medication Review/Management: medications reviewed Goal: Bariatric Home Regimen Maintained Outcome: Ongoing, Progressing Intervention: Maintain and Manage Postbariatric Surgery Care Flowsheets (Taken 08/13/20251954) Medication Review/Management: medications reviewed Goal: Maintenance of Seizure Control Outcome: Ongoing, Progressing Intervention: Maintain Seizure Symptom Control Flowsheets (Taken 08/13/20251954) Sensory Stimulation Regulation: television on care clustered lighting decreased Medication Review/Management: medications reviewed Seizure Precautions: activity supervised clutter-free environment maintained Problem: Fall Injury Risk Goal: Absence of Fall and Fall-Related Injury Outcome: Ongoing, Progressing Intervention: Identify and Manage Contributors Flowsheets (Taken 08/13/20251954) Medication Review/Management: medications reviewed Self-Care Promotion: independence encouraged BADL personal objects within reach BADL personal routines maintained Intervention: Promote Injury-Free Environment Flowsheets (Taken 08/13/20251954) Safety Promotion/Fall Prevention: activity supervised assistive device/personal items within reach clutter-free environment maintained fall prevention program maintained lighting adjusted mobility aid in reach nonskid shoes/slippers when out of bed room organization consistent safety round/check completed toileting scheduled * Progress Notes - Uche Fonseca MD - 08/13/2025 4:41 PM EST Subjective No events overnight. No new complaints. Denies fever, SOA, CP, N/V Review of Systems Objective Vitals Temp: [36.6 ??C (97.9 ??F)-37.1 ??C (98.8 ??F)] 37.1 ??C (98.8 ??F) Heart Rate: [61-74] 74 Resp: [16-18] 16 BP: (111-130)/(70-75) 130/75 Physical Exam Constitutional: General: He is not in acute distress. Appearance: He is well-developed. He is not diaphoretic. HENT: Head: Normocephalic and atraumatic. Nose: Nose normal. Mouth/Throat: Comments: Normal oral and pharyngeal mucosa Cardiovascular: Rate and Rhythm: Normal rate and regular rhythm. Heart sounds: Normal heart sounds. Pulmonary: Effort: Pulmonary effort is normal. Breath sounds: Normal breath sounds. Abdominal: General: Bowel sounds are normal. Palpations: Abdomen is soft. Tenderness: There is no abdominal tenderness. Skin: General: Skin is warm and dry. Neurological: Mental Status: He is alert. 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 Effusion of th joint space of the 4th digit noted on MRI Also foci of gas --> MRI r/o necrotizing infection and osteomyelitis ID consulted on 08/08/25 we appreciate their recommendations Pt continues on Vancomycin and meropenem Plan: Continue on Vancomycin and meropenem Await recommendations from ID given updated info CRP 178-> 91.2 Improving Blood cx NGTD x 4 days MR showed possible involvement of left 4th PIP joint. 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 ID rec'd stopping meropenem and vancomycin and starting cefazolin. PT/OT consulted [facility] surgery rec'd: - Recommend WTD dressing changes BID by nursing - Recommend Protected Wait Bearing with forefoot offloading shoe. IDDM Type II Last Hgb A1c 9.5 Continue to hold home Glipizide Increased Lantus to 20 U BID on 08/09 BG - improved a bit. Plan: Lantus 20 u BID With high dose sliding scale and more frequent FS until BG <180 mg /fl Goal BG 140-180 mg/dl Daily CMP. Glucoses improved today 177-195 HTN ( essential) BP controlled At home he is on Lisinopril hydrochlorothiazide combo 20/12.5mg 2 tabs by mouth daily Plan: Hydrochlorothiazide 25mg PO daily Lisinopril 40mg PO OD WU resolving Cr on 08/08 1.45-> 1.18 Continue to monitor Avoid nephrotoxins as able. Repeat BMP in AM ; Cr up slightly today. Continue to trend daily for now. Chronic Medical conditions: HLD Atorvastatin 40 mg MDD (Major Depressive Disorder) Continue on Wellbutrin 150 mg daily Vit D deficiency On Vit D replacement Vitamin D level : 78.2 (08/10/25) BPH On Proscar 5 mg daily Monitor UOP Notify MD of hematuria or no UOP for 6 hrs Medically Ready for Discharge:Anticipated in 2-4 Days * Care Plan - Valerie Chaidez RN - 08/13/2025 10:38 AM EST Problem: Adult Inpatient Plan of Care Goal: Plan of Care Review Outcome: Ongoing, Progressing Flowsheets (Taken 08/13/20251034) Progress: improving Plan of Care Reviewed With: patient Goal: Patient-Specific Goal (Individualized) Outcome: Ongoing, Progressing Flowsheets (Taken 08/13/2025 08) Patient/Family-Specific Goals (Include Timeframe): Pt will be free of fall and pain during the shift. Individualized Care Needs: pAin management and mobilization Anxieties, Fears or Concerns: recovery and pain management Goal: Absence of Hospital-Acquired Illness or Injury Outcome: Ongoing, Progressing Intervention: Identify and Manage Fall Risk Flowsheets (Taken 08/13/2025 0800) Safety Promotion/Fall Prevention: activity supervised assistive device/personal items within reach clutter-free environment maintained Intervention: Prevent Skin Injury Flowsheets (Taken 08/13/20251034) Body Position: heels elevated Skin Protection: protective footwear used transparent dressing maintained Intervention: Prevent and Manage VTE (Venous Thromboembolism) Risk Flowsheets (Taken 08/13/20251034) VTE Prevention/Management: previous patient education reinforced Intervention: Prevent Infection Flowsheets (Taken 08/13/20251034) Infection Prevention: cohorting utilized environmental surveillance performed equipment surfaces disinfected hand hygiene promoted personal protective equipment utilized rest/sleep promoted single patient room provided Goal: Optimal Comfort and Wellbeing Outcome: Ongoing, Progressing Problem: Pain Acute Goal: Optimal Pain Control and Function Outcome: Ongoing, Progressing Intervention: Optimize Psychosocial Wellbeing Flowsheets (Taken 08/13/20251034) Supportive Measures: active listening utilized counseling provided decision-making supported goal-setting facilitated guided imagery facilitated mindfulness techniques promoted positive reinforcement provided problem-solving facilitated relaxation techniques promoted self-care encouraged self-reflection promoted self-responsibility promoted verbalization of feelings encouraged Diversional Activities: television Spiritual Activities Assistance: affirmation provided personal rituals encouraged spiritual support provided Intervention: Prevent or Manage Pain Flowsheets (Taken 08/13/20251034) Sensory Stimulation Regulation: television on quiet environment promoted Bowel Elimination Promotion: adequate fluid intake promoted Sleep/Rest Enhancement: consistent schedule promoted natural light exposure provided regular sleep/rest pattern promoted relaxation techniques promoted Medication Review/Management: medications reviewed Problem: Skin or Soft Tissue Infection Goal: Absence of Infection Signs and Symptoms Outcome: Ongoing, Progressing Intervention: Minimize and Manage Infection Progression Flowsheets (Taken 08/13/20251034) Infection Management: aseptic technique maintained Infection Prevention: cohorting utilized environmental surveillance performed equipment surfaces disinfected hand hygiene promoted personal protective equipment utilized rest/sleep promoted single patient room provided Isolation Precautions: precautions maintained protective Problem: Wound Goal: Optimal Wound Healing Outcome: Ongoing, Progressing Intervention: Promote Wound Healing Flowsheets (Taken 08/13/2025 103) Sleep/Rest Enhancement: consistent schedule promoted natural light exposure provided regular sleep/rest pattern promoted relaxation techniques promoted Problem: Fall Injury Risk Goal: Absence of Fall and Fall-Related Injury Outcome: Ongoing, Progressing Intervention: Identify and Manage Contributors Flowsheets (Taken 08/13/2025 103) Medication Review/Management: medications reviewed Self-Care Promotion: independence encouraged BADL personal objects within reach BADL personal routines maintained meal set-up provided adaptive equipment use encouraged Intervention: Promote Injury-Free Environment Flowsheets (Taken 08/13/2025 0800) Safety Promotion/Fall Prevention: activity supervised assistive device/personal items within reach clutter-free environment maintained Problem: Fall Injury Risk Goal: Absence of Fall and Fall-Related Injury Outcome: Ongoing, Progressing Intervention: Identify and Manage Contributors Flowsheets (Taken 08/13/2025 103) Medication Review/Management: medications reviewed Self-Care Promotion: independence encouraged BADL personal objects within reach BADL personal routines maintained meal set-up provided adaptive equipment use encouraged Intervention: Promote Injury-Free Environment Flowsheets (Taken 08/13/2025 0800) Safety Promotion/Fall Prevention: activity supervised assistive device/personal items within reach clutter-free environment maintained * Progress Notes - Margaret Alford PharmD - 08/13/2025 10:13 AM EST Vancomycin therapy has been discontinued per ID recommendation. Pharmacist will sign off from dosing and monitoring vancomycin. Please re-order a pharmacist to dose consult or discuss with your team pharmacist if re- initiation of vancomycin therapy is needed in the future. Submitted by: Margaret Alford PharmD 08/13/2025 10:13 AM * Care Plan - Amada Dennison RN - 08/13/2025 4:51 AM EST Problem: Adult Inpatient Plan of Care Goal: Plan of Care Review Outcome: Ongoing, Progressing Flowsheets (Taken 08/13/2025449) Progress: improving Outcome Evaluation: Patient will ambute om hallway TID. Patient will verbalize understanding of daily plan of care. Plan of Care Reviewed With: patient Goal: Patient-Specific Goal (Individualized) Flowsheets (Taken 08/12/20251999) Patient/Family-Specific Goals (Include Timeframe): Patient will report pain score of 4 or less withadministration of any analgesic. Patient will ambulate with assistance TID. Patient will verbalize understanding of daily plan of care. Individualized Care Needs: Ongoing Anxieties, Fears or Concerns: Post op recpvery, pain, infection prevention. Goal: Optimal Comfort and Wellbeing Intervention: Monitor Pain and Promote Comfort Flowsheets (Taken 08/13/2025449) Pain Management Interventions: medication (see MAR) care clustered diversional activity provided pain management plan reviewed with patient/caregiver pillow support provided Intervention: Provide Person-Centered Care Flowsheets (Taken 08/13/2025449) Trust Relationship/Rapport: care explained choices provided questions answered questions encouraged * Progress Notes - Cayetano Tillman - 08/12/2025 3:25 PM EST Physical Therapy Evaluation Patient Name: Hi Goode Today's Date: 08/12/2025 PT Discharge Recommendations: Home with assistance Equipment Recommended: Rolling walker, Crutches - provided History Hi Goode is 60 y.o. male admitted 08/07/2025 for work-up of Cellulitis and abscess of toe ofleft foot. Problem List Active Hospital Problems Diagnosis Date Noted Cellulitis and abscess of toe of left foot 08/07/2025 Insulin dependent type 2 diabetes mellitus Essential (primary) hypertension Hyperlipidemia, mixed Major depressive disorder Osteoarthritis Procedures 08/11/2025 Procedure(s): AMPUTATION,TOE Past Medical History Patient has a past medical history of Essential (primary) hypertension, History of bladder cancer, Hyperlipidemia, mixed, Insulin dependent type 2 diabetes mellitus, Major depressive disorder, and Osteoarthritis. Past Surgical History Patient has a past surgical history that includes Transurethral resection of prostate (N/A). Precautions Left Lower Extremity Weight Bearing Status: Protected weight-bearing as tolerated (with forefoot offloading shoe) Medical Precautions: Fall precautions Subjective Pt was agreeable to working with PT today and reported feeling well overall. He's looking forward to return home when able. Participants in Care Family/Caregiver Present: No Presentation Oxygen Therapy: None (Room air) Lines and Tubes: Intravenous access Pre-Session: Supine, Head of bed elevated, Lines intact Post-Session: Supine, Head of bed elevated, Lines intact, RN notified, Call light in reach Post-Session Comments: No alarm set. RN aware. Home Living/Set-up Lives With: Spouse Home Type: House Home Adaptive Equipment: None Home Layout: Two level, Able to live on one level with bedroom/bathroom (ramped entrance) Bathroom: Tub/Shower: Tub/Shower combo Bathroom: Toilet: Standard Prior Level of Function Receives Help From: No assist required prior to admission Level of Mobility: Ambulatory- community Mobility [place]: Independent gait without device History of Falls: No ADL Performance: Independent Patient/Family Goals Return home Objective Pain Pt reported 3/10 pain in L foot. Their pain was unchanged during this session. PT provided increased mobility, cuing for strategies to reduce pain during mobility, and repositioning and pt was positioned for comfort at the end of the session. Delirium Screening RASS: Alert and calm Confusion Assessment Method-ICU (CAM-ICU/PCAM-ICU) Feature 3: Altered Level of Consciousness: Negative Cognition Overall Cognitive Status: Within Functional Limits Arousal/Alertness: Appropriate responses to stimuli Mood/Behavior: Alert Orientation Level: Oriented X4 Single Step Commands: Consistently Multi-Step Commands: Consistently Method of Communication: Verbal Right Upper Extremity Examination RUE Assessment: Within Functional Limits Manual Muscle Testing - RUE: Within functional limits Sensation Light Touch: Right Upper Extremity: Intact Left Upper Extremity Examination LUE ROM Assessment LUE Assessment: Within Functional Limits Manual Muscle Testing - LUE Manual Muscle Testing - LUE: Within functional limits Sensation Light Touch: Left Upper Extremity: Intact Right Lower Extremity Examination RLE ROM Assessment RLE Assessment: Within Functional Limits Manual Muscle Testing - RLE Manual Muscle Testing - RLE: Within functional limits Sensation Light Touch: Right Lower Extremity: Intact Left Lower Extremity Examination LLE Assessment: Within Functional Limits Manual Muscle Testing: Within functional limits (hip and knee WFL. Did not test ankle d/t dressing in place) Sensation Light Touch: Left Lower Extremity: Mild impairment Bed Mobility Bed Mobility Exam: Supine to Sit Level of [place]: Modified [place] Physical/Nonphysical Assist: HOB elevated Bed Mobility Exam: Sit to Supine Level of [place]: Modified independence Physical/Nonphysical Assist: HOB elevated Transfers Transfer Exam: Sit to stand Level of [place]: Stand-by assist Physical/Nonphysical Assist: Verbal Cues, Minimal cues Assistive Device: Crutches, axillary Transfer Exam: Stand to Sit Level of [place]: Stand-by assist Physical/Nonphysical Assist: Verbal Cues, Minimal cues Assistive Device: Crutches, axillary Ambulation Device: Rolling walker, Axillary crutches Assistance: Standby assist Distance : 50' + 150' Ambulation Comments: Pt ambulating 50' with RW and demonstrating good tolerance to mobility. Progressed to crutches and ambulated an additional 150' with SBA. See gait training for further details. Balance Postural Appearance Posture: Within Functional Limits Static Sitting Balance Static Sitting-Balance Support: No upper extremity support, Feet supported Static Sitting-Level of Assistance: Independent Dynamic Sitting Balance Dynamic Sitting-Balance Support: No upper extremity support, Feet supported Level of Assistance: Independent Static Standing Balance Static Standing-Balance Support: Right upper extremity support, Left upper extremity support Static Standing-Level of Assistance: Supervision Dynamic Standing Balance Dynamic Standing-Balance Support: Right upper extremity support, Left upper extremity support Dynamic Standing Level of Assistance: Supervision Gait Training (13 minutes) Prior to gait training, educated pt on appropriate sit<>stand transfers using crutches. Instructed pt on using hand on stable surfaces instead of crutches and moving up to crutches once standing. Pt returned demonstration Gait Analysis: With both walker and axillary crutches, pt is demonstrating 3-point gait pattern using step-to L gait pattern, decreased step length bilaterally, decreased gait speed, decreased krissy, forward flexed posture, and downward gaze. Interventions: PT provided cuing for fitting crutches, sequencing with RW and crutches, step-to L gait pattern, maintaining protected weight bearing on L LE, upright posture, shoulder retraction, forward gaze, and safety awareness. Response: Pt demonstrated improved gait pattern but pt required few cues to maintain changes. Also educated pt on sequencing with stairs. Instructed pt on performing step-to pattern while goingup with the good leg and down with the bad leg. Pt verbalized understanding of all educations provided. Standardized Assessments Standardized Assessments Standardized Assessments: [facility] 6-Clicks Mobility Assessment [facility] 6-Clicks Mobility Assessment Difficulty patient has turning over in bed (including adjusting bedclothes, sheets, and blankets)?:None Difficulty patient has sitting down on and standing up from a chair with arms (wheelchair, bedside commode, etc.)?: None Difficulty patient has moving from lying on back to sitting on the side of the bed?: None How much help does the patient need moving to and from a bed to a chair (including a wheelchair)?: None How much help does the patient need to walk in hospital room?: None How much help does the patient need climbing 3-5 steps with a railing?: A little [facility] 6-Clicks Mobility Assessment Total : 23 No data recorded Assessment Pt is demonstrating overall good mobility today and is ambulating household distances safely with both RW and crutches. He will be safe to return home when medically appropriate and will continue to benefit from skilled PT services while admitted to address his deficits and to help him maximize hislevel of independence with all mobility and ADLs. He will also benefit from RW as well as crutches (crutches have already been provided) as his gait was improve with using RW but pt expresses concernthat his home would not be completely accessible via walker. He does feel more comfortable using walker for longer distances in more open areas. Impairments: Impaired gait dynamics/performance, Impaired sensation/sensory processing, Pain Activity Limitations: Inability to ambulate community distances Participation Restrictions: Home management, Community leisure, Self-care Activity Tolerance: Endurance does not limit participation in activity Evaluation/Treatment Tolerance: Other (Comment) (tolerated well) Diagnosis: Gait deficits Rehab Potential: Good, to achieve stated therapy goals Eval Complexity History Profile: 1 - 2 personal factors and/or comorbidities Clinical Presentation: Stable and/or uncomplicated characteristics Clinical Decision Making: Low complexity PT Recommendations Discharge Destination: Home with assistance Discharge Equipment: Rolling walker, Crutches - provided Plan Planned PT Interventions Gait training, Transfer training, Functional Mobility PT Frequency 2 - 5 times per week PT Duration 2 weeks Goals PT GOAL DETAILS Time Frame PT Goal 1: Pt will demonstrate sit<>stand transfers with modified independence and using LRAD. 2 weeks PT Goal 2: Pt will ambulate 300' or more with modified independence, using LRAD. 2 weeks PT Goal 3: Pt will ascend / descend 4 stairs with SBA and using LRAD and/or hand rails. 2 weeks Written by Cayetano Tillman on 08/12/25 at 3:45 PM. * Progress Notes - Maldonado Hernandez MD - 08/12/2025 12:50 PM EST Images from the original note were not included. [facility] Department of Surgery Division of Vascular Surgery 08/12/25 Hi Goode Subjective POD1 s/p Left 4th toe amputation. NAOE. VSS. States that he foot is still numb. Subjective: HPI Hi Goode is an 60 y.o. male admitted 08/07/2025 with Dx: Cellulitis and abscess of toe of left foot Operations: 08/11/2025 Left 4th toe amp [place] Pulse Exam: Bilateral DP and PT present Ongoing Acute Problems: s/p L 4th toe amputation Important Chronic Problems: IDDM2, HLD, HTN, bladder cancer (in remission), and depression Blood Product Consent Obtained: Yes Comments: Edited by: Maldonado Hernandez MD at 08/12/2025 1323 Review of Systems: Relevant review of systems was obtained as able and is negative unless stated above in HPI. Objective Objective: Vital signs: Vitals: 08/12/25 0738 BP: 112/76 Pulse: 58 Resp: 20 Temp: 36.6 ??C (97.9 ??F) SpO2: 97% Physical Exam: Physical Exam Vitals and nursing note reviewed. Constitutional: Appearance: Normal appearance. HENT: Head: Normocephalic and atraumatic. Right Ear: External ear normal. Left Ear: External ear normal. Nose: Nose normal. Mouth/Throat: Mouth: Mucous membranes are moist. Pharynx: Oropharynx is clear. Eyes: Extraocular Movements: Extraocular movements intact. Pulmonary: Effort: Pulmonary effort is normal. No respiratory distress. Abdominal: Palpations: Abdomen is soft. Musculoskeletal: General: Normal range of motion. Cervical back: Normal range of motion and neck supple. Comments: Left 4th toe amputated at MTP Skin: General: Skin is warm and dry. Capillary Refill: Capillary refill takes less than 2 seconds. Neurological: General: No focal deficit present. Mental Status: He is alert and oriented to person, place, and time. Psychiatric: Mood and Affect: Mood normal. Behavior: Behavior normal. Intake/Output Summary (Last 24 hours) at 08/12/2025 1323 Last data filed at 08/12/2025 0755 Gross per 24 hour Intake 1355 ml Output 950 ml Net 405 ml Lines/Drains/Tubes: Patient Lines/Drains/Airways Status Active Airway None Output by Drain (mL) 08/10/25 0700 - 08/10/25 1859 08/10/25 1900 - 08/11/25 0659 08/11/25 0700 - 08/11/25 1859 08/11/25 1900 - 08/12/25 0659 08/12/25 07 - 08/12/25 1323 Patient has no LDAs of requested type attached. Labs in last 18 hours: CBC WBC 6.41 Hb 13.1 (L) Plt 171 Hct 38.6 (L) ANC 3.97 INR ??, PTT ??, Anti-Xa ?? MCV 86 BMP Na 135 (L) Cl 102 BUN 24 (H) Glu 231 (H) K 4.3 Co2 22 Cr 1.21 (H) Ca 9.1 iCa ?? Mg 2.0, Phos 2.7 Lactate ?? LFT AST 17 AlkPhos 66 T Prot 6.1 (L) ALK 28 Bili 0.3 Alb ?? D.Bili ?? Lab Trends: H/H Results from last 7 days Lab Units 08/12/25 0309 08/11/25 0330 08/09/25 0230 HEMOGLOBIN g/dL 13.1* 14.0 14.4 HEMATOCRIT % 38.6* 40.7 43.0 INR Results from last 7 days Lab Units 08/07/25 0642 INR 1.1 Cr Results from last 7 days Lab Units 08/12/25 0309 08/11/25 0330 08/09/25 0230 CREATININE mg/dL 1.21* 1.03 1.18 Lactate No lab exists for component: LACTTEVEN Radiographic Interpretation: No imagining today. Medications reviewed. Vital signs reviewed. Labs reviewed. Assessment/Plan Assessment and Plan: Hi Goode is a 60 y.o. male with PMHx notable for IDDM2, HLD, HTN, bladder cancer (in remission), and depression who presented to [facility] with left fourth toe wound after stepping on a nail last . He was taken to OR for a left 4th toe amputation. POD 1 and recovering well. Recommend WTD dressing BID. Follow up in wound care in 2 weeks. Paresthesias of the foot likely secondary to nerve block received post operatively. Assessment & Plan Cellulitis and abscess of toe of left foot Insulin dependent type 2 diabetes mellitus Essential (primary) hypertension Hyperlipidemia, mixed Major depressive disorder Osteoarthritis Plan Today: - Recommend WTD dressing changes BID by nursing - Recommend Protected Wait Bearing with forefoot offloading shoe. - Vascular Surgery will be available for any new questions or concerns. Dispo: Vascular Surgery will now sign off Maldonado Hernandez MD Cosigned by Andie Moyer MD at 08/13/2025 12:22 PM EST Associated attestation - Andie Moyer MD - 08/13/2025 12:22 PM EST I saw and evaluated the patient. I discussed the case with the resident/fellow and agree with the findings and plan as documented. Wound clean, needs f/u in wound care clinic after discharge * Progress Notes - Uche Fonseca MD - 08/12/2025 10:13 AM EST Subjective No events overnight. Vascular surgery took him for amputation of Left 4th toe. No new complaints. Denies fever, SOA, CP, N/V Review of Systems Objective Vitals Temp: [36.3 ??C (97.3 ??F)-36.9 ??C (98.4 ??F)] 36.6 ??C (97.9 ??F) Heart Rate: [58-72] 58 Resp: [12-20] 20 BP: (98-126)/(55-80) 112/76 Physical Exam Constitutional: General: He is not in acute distress. Appearance: He is well-developed. He is not diaphoretic. HENT: Head: Normocephalic and atraumatic. Nose: Nose normal. Mouth/Throat: Comments: Normal oral and pharyngeal mucosa Cardiovascular: Rate and Rhythm: Normal rate and regular rhythm. Heart sounds: Normal heart sounds. Pulmonary: Effort: Pulmonary effort is normal. Breath sounds: Normal breath sounds. Abdominal: General: Bowel sounds are normal. Palpations: Abdomen is soft. Tenderness: There is no abdominal tenderness. Skin: General: Skin is warm and dry. Neurological: Mental Status: He is alert. 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 Effusion of th joint space of the 4th digit noted on MRI Also foci of gas --> MRI r/o necrotizing infection and osteomyelitis ID consulted on 08/08/25 we appreciate their recommendations Pt continues on Vancomycin and meropenem Plan: Continue on Vancomycin and meropenem Await recommendations from ID given updated info CRP 178-> 91.2 Improving Blood cx NGTD x 4 days MR showed possible involvement of left 4th PIP joint. 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 Await ID final rec'd NWB on Left foot until clarified with vascular surgery. IDDM Type II Last Hgb A1c 9.5 Continue to hold home Glipizide Increased Lantus to 20 U BID on 08/09 BG - improved a bit. Plan: Lantus 20 u BID With high dose sliding scale and more frequent FS until BG <180 mg /fl Goal BG 140-180 mg/dl Daily CMP. Glucoses improved today 177-195 HTN ( essential) BP controlled At home he is on Lisinopril hydrochlorothiazide combo 20/12.5mg 2 tabs by mouth daily Plan: Hydrochlorothiazide 25mg PO daily Lisinopril 40mg PO OD WU resolving Cr on 08/08 1.45-> 1.18 Continue to monitor Avoid nephrotoxins as able. Repeat BMP in AM ; Cr up slightly today. Continue to trend daily for now. Chronic Medical conditions: HLD Atorvastatin 40 mg MDD (Major Depressive Disorder) Continue on Wellbutrin 150 mg daily Vit D deficiency On Vit D replacement Vitamin D level : 78.2 (08/10/25) BPH On Proscar 5 mg daily Monitor UOP Notify MD of hematuria or no UOP for 6 hrs Medically Ready for Discharge:Anticipated in 2-4 Days * Care Plan - Klarissa Whitehead RN - 08/12/2025 9:07 AM EST Problem: Adult Inpatient Plan of Care Goal: Plan of Care Review Outcome: Ongoing, Progressing Flowsheets (Taken 08/12/2025903) Progress: improving Plan of Care Reviewed With: patient Goal: Patient-Specific Goal (Individualized) Outcome: Ongoing, Progressing Flowsheets (Taken 08/12/2025 08) Patient/Family-Specific Goals (Include Timeframe): pt will remain safe this shift Individualized Care Needs: safety Anxieties, Fears or Concerns: none stated Goal: Absence of Hospital-Acquired Illness or Injury Outcome: Ongoing, Progressing Intervention: Identify and Manage Fall Risk Flowsheets (Taken 08/12/2025903) Safety Promotion/Fall Prevention: activity supervised assistive device/personal items within reach clutter-free environment maintained fall prevention program maintained lighting adjusted nonskid shoes/slippers when out of bed Intervention: Prevent Skin Injury Flowsheets (Taken 08/12/2025903) Body Position: weight shifting Skin Protection: protective footwear used Intervention: Prevent and Manage VTE (Venous Thromboembolism) Risk Flowsheets (Taken 08/12/2025903) VTE Prevention/Management: medication Intervention: Prevent Infection Flowsheets (Taken 08/12/2025903) Infection Prevention: cohorting utilized equipment surfaces disinfected hand hygiene promoted personal protective equipment utilized Goal: Optimal Comfort and Wellbeing Outcome: Ongoing, Progressing Intervention: Monitor Pain and Promote Comfort Flowsheets (Taken 08/12/2025903) Pain Management Interventions: medication (see MAR) position adjusted Intervention: Provide Person-Centered Care Flowsheets (Taken 08/12/2025903) Trust Relationship/Rapport: care explained questions encouraged Problem: Pain Acute Goal: Optimal Pain Control and Function Outcome: Ongoing, Progressing Intervention: Optimize Psychosocial Wellbeing Flowsheets (Taken 08/12/2025903) Supportive Measures: active listening utilized Diversional Activities: television Spiritual Activities Assistance: affirmation provided Intervention: Develop Pain Management Plan Flowsheets (Taken 08/12/2025903) Pain Management Interventions: medication (see MAR) position adjusted Intervention: Prevent or Manage Pain Flowsheets (Taken 08/12/2025903) Sensory Stimulation Regulation: quiet environment promoted Complementary Therapy: other (see comments) Bowel Elimination Promotion: adequate fluid intake promoted Sleep/Rest Enhancement: awakenings minimized consistent schedule promoted Medication Review/Management: medications reviewed Problem: Skin or Soft Tissue Infection Goal: Absence of Infection Signs and Symptoms Outcome: Ongoing, Progressing Intervention: Minimize and Manage Infection Progression Flowsheets (Taken 08/12/2025903) Infection Management: aseptic technique maintained Fever Reduction/Comfort Measures: lightweight clothing Infection Prevention: cohorting utilized equipment surfaces disinfected hand hygiene promoted personal protective equipment utilized Isolation Precautions: protective Intervention: Provide Meticulous Infection Site Care Flowsheets (Taken 08/12/2025903) Topical Inflammation Care: other (see comments) Problem: Comorbidity Management Goal: Maintenance of Asthma Control Outcome: Ongoing, Progressing Intervention: Maintain Asthma Symptom Control Flowsheets (Taken 08/12/2025903) Medication Review/Management: medications reviewed Goal: Maintenance of Behavioral Health Symptom Control Outcome: Ongoing, Progressing Intervention: Maintain Behavioral Health Symptom Control Flowsheets (Taken 08/12/2025903) Medication Review/Management: medications reviewed Goal: Maintenance of COPD Symptom Control Outcome: Ongoing, Progressing Intervention: Maintain COPD (Chronic Obstructive Pulmonary Disease) Symptom Control Flowsheets (Taken 08/12/2025903) Medication Review/Management: medications reviewed Goal: Blood Glucose Level Within Target Range Outcome: Ongoing, Progressing Intervention: Monitor and Manage Glycemia Flowsheets (Taken 08/12/2025903) Medication Review/Management: medications reviewed Goal: Maintenance of Heart Failure Symptom Control Outcome: Ongoing, Progressing Intervention: Maintain Heart Failure Management Flowsheets (Taken 08/12/2025903) Medication Review/Management: medications reviewed Goal: Blood Pressure in Desired Range Outcome: Ongoing, Progressing Intervention: Maintain Blood Pressure Management Flowsheets (Taken 08/12/2025903) Medication Review/Management: medications reviewed Goal: Maintenance of Osteoarthritis Symptom Control Outcome: Ongoing, Progressing Intervention: Maintain Osteoarthritis Symptom Control Flowsheets (Taken 08/12/2025903) Activity Management: activity adjusted per tolerance activity encouraged Medication Review/Management: medications reviewed Goal: Bariatric Home Regimen Maintained Outcome: Ongoing, Progressing Intervention: Maintain and Manage Postbariatric Surgery Care Flowsheets (Taken 08/12/2025903) Medication Review/Management: medications reviewed Goal: Maintenance of Seizure Control Outcome: Ongoing, Progressing Intervention: Maintain Seizure Symptom Control Flowsheets (Taken 08/12/2025903) Sensory Stimulation Regulation: quiet environment promoted Medication Review/Management: medications reviewed Problem: Wound Goal: Optimal Wound Healing Outcome: Ongoing, Progressing Intervention: Promote Wound Healing Flowsheets (Taken 08/12/2025903) Sleep/Rest Enhancement: awakenings minimized consistent schedule promoted Problem: Fall Injury Risk Goal: Absence of Fall and Fall-Related Injury Outcome: Ongoing, Progressing Intervention: Identify and Manage Contributors Flowsheets (Taken 08/12/2025903) Medication Review/Management: medications reviewed Intervention: Promote Injury-Free Environment Flowsheets (Taken 08/12/2025903) Safety Promotion/Fall Prevention: activity supervised assistive device/personal items within reach clutter-free environment maintained fall prevention program maintained lighting adjusted nonskid shoes/slippers when out of bed * Care Plan - Alicia Camargo RN - 08/12/2025 4:03 AM EST Problem: Adult Inpatient Plan of Care Goal: Plan of Care Review Outcome: Ongoing, Progressing Flowsheets (Taken 08/12/2025 040) Progress: improving Outcome Evaluation: PT A&Ox4, VSS on RA. minimal post-op pain, good UOP. PT consulted to get ADL tool for ambulation. Plan of Care Reviewed With: patient Goal: Patient-Specific Goal (Individualized) Outcome: Ongoing, Progressing Flowsheets (Taken 08/11/20251999) Patient/Family-Specific Goals (Include Timeframe): pt will be free from falls/injury Individualized Care Needs: safety Anxieties, Fears or Concerns: none stated Note: No falls or injury Goal: Absence of Hospital-Acquired Illness or Injury Outcome: Ongoing, Progressing Intervention: Identify and Manage Fall Risk Flowsheets (Taken 08/12/2025 0401) Safety Promotion/Fall Prevention: safety round/check completed Intervention: Prevent Skin Injury Flowsheets (Taken 08/12/2025 040) Body Position: education provided Skin Protection: protective footwear used Intervention: Prevent and Manage VTE (Venous Thromboembolism) Risk Flowsheets (Taken 08/12/2025 040) VTE Prevention/Management: education provided Intervention: Prevent Infection Flowsheets (Taken 08/12/2025 040) Infection Prevention: cohorting utilized environmental surveillance performed Goal: Optimal Comfort and Wellbeing Outcome: Ongoing, Progressing Problem: Pain Acute Goal: Optimal Pain Control and Function Outcome: Ongoing, Progressing Intervention: Optimize Psychosocial Wellbeing Flowsheets (Taken 08/12/2025 040) Supportive Measures: active listening utilized Diversional Activities: television Spiritual Activities Assistance: affirmation provided Intervention: Develop Pain Management Plan Flowsheets (Taken 08/12/2025 040) Pain Management Interventions: pain management plan reviewed with patient/caregiver Intervention: Prevent or Manage Pain Flowsheets (Taken 08/12/2025 040) Sensory Stimulation Regulation: quiet environment promoted care clustered lighting decreased Bowel Elimination Promotion: adequate fluid intake promoted privacy promoted Sleep/Rest Enhancement: awakenings minimized consistent schedule promoted Medication Review/Management: medications reviewed Problem: Skin or Soft Tissue Infection Goal: Absence of Infection Signs and Symptoms Outcome: Ongoing, Progressing Intervention: Minimize and Manage Infection Progression Flowsheets (Taken 08/12/2025 040) Infection Management: aseptic technique maintained Fever Reduction/Comfort Measures: lightweight clothing Infection Prevention: cohorting utilized environmental surveillance performed Isolation Precautions: precautions maintained Intervention: Provide Meticulous Infection Site Care Note: Surgical dressing in place Problem: Wound Goal: Optimal Wound Healing Outcome: Ongoing, Progressing Intervention: Promote Wound Healing Flowsheets (Taken 08/12/2025400) Sleep/Rest Enhancement: awakenings minimized consistent schedule promoted * Significant Event - Li Marinelli DO - 08/11/2025 7:08 PM EST Post-Operative Check Note Hi Goode is a 60 y.o. male POD#0 from: Procedure(s) (LRB): AMPUTATION,TOE (Left) SUBJECTIVE: Mr. Goode reports feeling well after surgery. Pain control is adequate and he denies any nausea or vomiting. No new concerns at this time. He is unable to move his Left lower extremity toes, however, he states he was given a nerve block. OBJECTIVE: Blood pressure 118/80, pulse 72, temperature 36.5 ??C (97.7 ??F), temperature source Oral, resp. rate 14, height 1.702 m (5' 7 ), weight 79.8 kg (176 lb), SpO2 93%. WBC 8.04 Hgb 14.0 PLT 176 HCT 40.7 INR ?? PTT ?? antiXa ?? Na 134 (L) Cl 100 BUN 19 Gluc 205 (H) K 4.1 CO2 22 Creat 1.03 Ca 9.5 iCa ?? Mg 1.8 (L) Phos 2.7 pH ?? pCO2 ?? pO2 ?? SPO2 ?? FIO2 ?? HCO3 ?? BE ?? Lactate ?? Physical Exam: GEN: NAD, laying comfortably in bed Pulm: equal chest rise bilaterally, breathing comfortably on room air Abd: soft, non-tender LLE: Dressing is clean dry and intact. Patient is unable to move left leg at the knee and ankle joint, he is unable to move his remaining toes. Sensation is reduced in 1st and 2nd toe, but has improved since surgery. ASSESSMENT/PLAN: POD 0- Currently stable on the floor and recovering well post-operatively. Diet: regular Pain Management: MMPC VTE PPx: This patient does not have an active medication from one of the medication groupers. Incentive spirometer at bedside Please call with any questions or concerns. Li Marinelli DO * Progress Notes - Uche Fonseca MD - 08/11/2025 5:08 PM EST Subjective Well overnight. Vascular surgery took him for amputation of Left 4th toe. No new complaints. Deniesfever, SOA, CP, N/V Review of Systems Objective Vitals Temp: [36.4 ??C (97.6 ??F)-37.1 ??C (98.8 ??F)] 36.5 ??C (97.7 ??F) Heart Rate: [62-76] 72 Resp: [12-16] 14 BP: (100-146)/(55-82) 118/80 Physical Exam Constitutional: General: He is not in acute distress. Appearance: He is well-developed. He is not diaphoretic. HENT: Head: Normocephalic and atraumatic. Nose: Nose normal. Mouth/Throat: Comments: Normal oral and pharyngeal mucosa Cardiovascular: Rate and Rhythm: Normal rate and regular rhythm. Heart sounds: Normal heart sounds. Pulmonary: Effort: Pulmonary effort is normal. Breath sounds: Normal breath sounds. Abdominal: General: Bowel sounds are normal. Palpations: Abdomen is soft. Tenderness: There is no abdominal tenderness. Skin: General: Skin is warm and dry. Neurological: Mental Status: He is alert. 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 Effusion of th joint space of the 4th digit noted on MRI Also foci of gas --> MRI r/o necrotizing infection and osteomyelitis ID consulted on 08/08/25 we appreciate their recommendations Pt continues on Vancomycin and meropenem Plan: Continue on Vancomycin and meropenem Await recommendations from ID given updated info CRP 178-> 91.2 Improving Blood cx NGTD x 4 days MR showed possible involvement of left 4th PIP joint. S/P left 4th toe amputation by vascular surgery Bone gram stain : GPC in pairs - Cx pending Await ID final rec'd NWB on Left foot until clarified with vascular surgery. IDDM Type II Last Hgb A1c 9.5 Continue to hold home Glipizide Increased Lantus to 20 U BID on 08/09 BG - improved a bit. Plan: Lantus 20 u BID With high dose sliding scale and more frequent FS until BG <180 mg /fl Goal BG 140-180 mg/dl Daily CMP. Glucoses improved today 177-195 HTN ( essential) BP controlled At home he is on Lisinopril hydrochlorothiazide combo 20/12.5mg 2 tabs by mouth daily Plan: Hydrochlorothiazide 25mg PO daily Lisinopril 40mg PO OD WU resolving Cr on 08/08 1.45-> 1.18 Continue to monitor Avoid nephrotoxins as able. Repeat BMP in AM Chronic Medical conditions: HLD Atorvastatin 40 mg MDD (Major Depressive Disorder) Continue on Wellbutrin 150 mg daily Vit D deficiency On Vit D replacement Vitamin D level : 78.2 (08/10/25) BPH On Proscar 5 mg daily Monitor UOP Notify MD of hematuria or no UOP for 6 hrs Medically Ready for Discharge:Anticipated in 2-4 Days * Anesthesia PACU Signout - Cole Prince III, MD - 08/11/2025 1:38 PM EST Patient: Hi Goode Anesthesia Type: general, regional Vitals Value Taken Time BP 111/63 08/11/25 13:30 Temp 36.4 ??C (97.6 ??F) 08/11/25 13:15 Pulse 66 08/11/25 13:37 Resp 18 08/11/25 13:37 SpO2 100 % 08/11/25 13:37 Vitals shown include unfiled device data. Anesthesia PACU Signout Patient location during evaluation: PACU Patient participation: complete - patient participated Level of consciousness: baseline and awake Pain management: adequate (pain score 0-3) Airway patency: natural airway Hydration status: acceptable PONV: none Cardiovascular status: acceptable and hemodynamically stable Respiratory status: acceptable, spontaneous ventilation, unassisted and nonlabored ventilation Discharge Disposition: admit to inpatient unit Comments: Patient is s/p Procedure(s) and Anesthesia Type: * AMPUTATION,TOE - General. Patient remains HDS on room air, neurologically appropriate, pain is controlled, and tolerating PO w/o N/V. Patient is appropriate for discharge from PACU to inpatient unit for continued postop care. Pain well-controlled from nerve block. Cosigned by Audelia Baig MD at 08/11/2025 2:14 PM EST Associated attestation - Audelia Baig MD - 08/11/2025 2:14 PM EST I saw and evaluated the patient with the resident/fellow. I discussed the case with the resident/fellow and agree with the findings and plan as documented. * Op Note - Andie Moyer MD - 08/11/2025 12:51 PM EST Operative Note Date: 08/11/25 Location: [facility] Name: Hi Goode, : 1965, Diagnoses: Pre-op Diagnosis Cellulitis and abscess of toe of left foot Post-op Diagnosis Cellulitis and abscess of toe of left foot Procedure(s): Left 4th toe amputation. Attending Surgeon(s): * Andie Moyer - Primary Air Launch Weapons Technician(s): * Aakash Frausto MD - Resident - Assisting Anesthesia: General ASA: III Blood Administration: Blood Product Administration History None Estimated Blood Loss: Minimal Drains: * None in log * Specimen: Specimens ID Source Frozen? 1 Toe, Left No Description: 4th Left Toe A Toe, Left Description: 4th toe bone B Toe, Left Description: Proximal margin bone Findings: Left 4th toe ulcer extending to the bone Indications: Hi Goode is an 60 y.o. male who is having surgery for Cellulitis and abscess oftoe of left foot. The patient presented with a left 4toe ulceration after stepping on a nail. He ispoorly-controlled diabetic. He has palpable DP and PT on the left. The left toe is edematous with an ulceration that probes to the bone. There was extensive cellulitis of the toe. We discussed about proceeding with a left 4th toe amputation because he has osteomyelitis since the toe ulcer extends to the bone. I explained that he may require her more extensive amputation if the infection is more widespread that can be appreciated currently. I discussed risks benefits and potential complication in cluding but not limited to bleeding infection hematoma poor wound healing need for additional procedures and a more proximal amputation. I explained that the wound will be left open. He understood and agreed to proceed Narrative: With the patient supine on the operating table the lower extremity was prepped and draped in a sterile fashion. Time-out was performed. The patient has been on antibiotics. An incision was made at the base of the toe and carried down with electrocautery to the level of the 4th metatarsal. The bone was divided with the a bone cutter the the incision was irrigated and we made sure we removed all inf ected devitalized material. There was no abscess in the surrounding tissues appeared healthy. Therewas good vascularity. Meticulous hemostasis was achieved. Specimen was sent for culture and pathology. The wound was packed Open and a sterile dressing was applied. Complications: None; patient tolerated the procedure well. Submitted by: Andie Moyer MD - 08/11/2025 * Progress Notes - Anne Downs MBBS - 08/11/2025 11:30 AM EST BONE AND JOINT INFECTIOUS DISEASE PROGRESS NOTE Attending: Uche Fonseca MD Subjective: Middle aged man lying in bed with no new complaints, no fever, no chills, his left foot has purulent discharge in the left 4th interdigital space. Objective: Visit Vitals BP 118/80 Pulse 72 Temp 36.5 ??C (97.7 ??F) Resp 12 Ht 1.702 m (5' 7 ) Wt 79.8 kg (176 lb) SpO2 93% BMI 27.57 kg/m?? Smoking Status Never BSA 1.94 m?? Physical exam: GEN: alert, no acute distress HEAD: Normocephalic, atraumatic EYES: EOMI, no scleral icterus ENT: normal hearing, OP clear, moist mucosa CHEST: within normal limits, no indwelling devices PULM: CTA bilaterally, good air movement CV: normal rate, regular rhythm, no murmur appreciated ABD: soft, nontender, nondistended, no palpable masses CHRISTIE: MUSCLE atrophy noticed in both feet, left foot with purulent discharge in the 4th interdigitalspace. SKIN: warm, dry, no rashes PSYCH: cooperative, appropriate affect Labs: CBC WBC 8.04 Hb 14.0 Plt 176 Hct 40.7 ANC 5.60 BMP Na 134 (L) Cl 100 BUN 19 Glu 205 (H) K 4.1 Co2 22 Cr 1.03 Mg 1.8 (L), Phos 2.7 LFT AST ?? AlkPhos ?? T Prot ?? ALK ?? Bili ?? Alb ?? D.Bili ?? Results from last 7 days Lab Units 08/10/25 0322 08/09/25 0230 08/07/25 0642 CRP mg/L 52.4* 91.2* 178.0* Results from last 7 days Lab Units 08/11/25 0330 08/07/25 0642 SED RATE mm/hr 58* 28* Medications: Current Medications[1] Imaging/Studies: MR Foot Left w and wo IV Contrast Narrative: CLINICAL INDICATION: to assess for underlying osteomyelitis vs necrotizing infection TECHNIQUE: Multiplanar multiecho sequences were obtained utilizing T1 and T2 weighting with and without the administration of intravenous contrast. 17.5 mL of Dotarem was administered. COMPARISON: None. FINDINGS: Evaluation is somewhat limited by inhomogeneous fat saturation overlying the digits. Bone and Bone Marrow: Edema-like marrow signal change in the middle and proximal phalanx of the fourth digit with no definitive enhancement. There is subtle irregularity of the cortex of the middle phalanx. Increased signal within the third and fifth digits is favored to be secondary to an homogeneous fat saturation. Soft Tissues: Ulceration overlying the plantar lateral aspect of the fourth digit which extends to the proximal interphalangeal joint. Edema and enhancement is noted throughout the fourth digit extending to the dorsal lateral aspect of the forefoot. There is fluid signal extending dorsally from theproximal interphalangeal joint could represent effusion. Edema throughout the plantar musculature of the foot with no associated enhancement may represent denervation myositis. The flexor and extensors appear grossly intact. No discrete organized fluid collection. Impression: Evaluation is somewhat limited by inhomogeneous fat saturation overlying the digits. Ulceration along the plantar lateral aspect of the fourth digit appears to extend to the proximal interphalangeal joint. There is further effusion of the joint space could represent associated septicjoint. Further edema and enhancement throughout the fourth digit likely represents a component of ce llulitis. Evaluation of marrow signal is somewhat limited by inhomogeneous fat saturation, within these limits there is mild edema-like marrow signal change along the proximal interphalangeal joint of the fourth digit however no significant enhancement. This could be potentially reactive however given concern for septic joint follow-up could be consider to exclude early infection. Further edema extending into the dorsal lateral aspect of the forefoot could represent further cellulitis. CRITICAL RESULT: No. COMMUNICATION: Per this written report. Drafted by James Bianchi on 08/09/2025 8:09 AM Final report signed by James Bianchi on 08/09/2025 8:22 AM Micro: 08/07/25: Blood culture: no growth at day 3 08/07/2025 HIV fay negative 08/07/2025 HCV fay negative Antibiotics: Vancomycin:08/08/25-present Zosyn:08/07/25-present Assessment: Hi Goode is a 60 y.o. male with history of insulin-dependent T2DM, HTN, and HLD who presented to [facility] on 08/07/25 as a [facility] with a left 4th toe puncture wound of two days duration. 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 Pt reports he removed nail andcleaned wound. He developed pain/swelling of L 4th toe 08/06/2025 and seen at [facility] where he was given Levofloxacin and Clindamycin, tetanus booster. CT done at OSH reportedly showed small focus of gas in toe and he was transferred to 08/07/2025 . Pt seen by Gen Surgery who recommended medical management. MRI L foot(08/09/25) showed possible LEFT PIP septic arthritis. ID team were consulted to provide recommendations on antibiotics and further workup for puncture wound. Today, he has no new complaints, no fever and says pain has completely subsided in the left foot. His WBC(08/08) is normal. Blood culture(08/07) has no growth at day 3. He is currently on vancomycin and meropenem to cover susceptible organisms. He has been reviewed by vascular surgery and it was noted that he had a deep space infection that extends to the PIP and with the good chances of healing after amputation of the toe, he was offered amputation and taken to the OR. Today, he has no fever, chills or body pains. WBC (08/11) is normal, blood culture(08/07) has no growth at day 4. If bone resection with clear margins are achieved intra-op, it will be possible to complete IV antibiotics in 7 days. However if clear margins are not achieved intra-op, he will need damari on IV antibiotics for 6 weeks. OR cultures should be sent for gram stain, aerobic and anaerobic cultures, AFB stain and cultures, fungal stain and cultures . The susceptibility results will determine the definitive antibiotics to be used. ID Problem List: -Diabetic foot infection -Septic arthritis of left 4th toe -T2DM which complicates management Recommendations: -The level of resection achieved with confidence will determine the duration of his antibiotics, ifcomplete resection is achieved, the duration may be 7 days but if this is not achieved, he will need to be on six weeks of IV antibiotics. -OR cultures should be sent for gram stain, aerobic and anaerobic cultures, AFB stain and cultures,fungal stain and cultures . The susceptibility results will determine the definitive antibiotics damari used. -He should continue with vancomycin and meropenem for now -If he remains in-patient, he should have weekly CBC,Creatinine and BUN done -He should have vancomycin trough done every Saturday BONE AND JOINT ID will continue to follow. Anne Downs MD Infectious Disease Fellow PGY-4 [1] Current Facility-Administered Medications Medication Dose Route Frequency Provider Last Rate Last Admin acetaminophen (Tylenol) tablet 1,000 mg 1,000 mg Oral q6h PRN Mery Garcia PA 1,000 mg at 08/09/251950 atorvastatin (Lipitor) tablet 40 mg 40 mg Oral Nightly Mery Garcia PA 40 mg at 08/10/252026 buPROPion SR (Wellbutrin SR) 12 hr tablet 150 mg 150 mg Oral Daily Mery Garcia PA 150 mg at 08/11/25 0824 cholecalciferol (Vitamin D-3) tablet 1,000 Units 1,000 Units Oral Daily Mery Garcia PA1,000 Units at 08/11/25 0824 glucose (Glutose) 40 % oral gel 15-30 grams of glucose 15-30 grams of glucose Sublingual q15 min PRN Mery Garcia PA Or dextrose 10 % (D10W) bolus 125 mL 125 mL Intravenous q15 min PRN Mery Garcia PA Or dextrose 10 % (D10W) bolus 250 mL 250 mL Intravenous q15 min PRN Mery Garcia PA Or glucagon (human recombinant) injection 1 mg 1 mg Intramuscular q15 min PRN Mery Garcia PA docusate sodium (Colace) capsule 250 mg 250 mg Oral Daily Fabienne Palm MD 250 mg at 08/11/25 0824 finasteride (Proscar) tablet 5 mg 5 mg Oral Daily Mery Garcia PA 5 mg at 08/11/25 08 hydroCHLOROthiazide (HYDRODiuril) tablet 25 mg 25 mg Oral Daily Mery Garcia PA 25 mg at 08/11/2524 ibuprofen tablet 400 mg 400 mg Oral q6h PRN Mery Garcia PA insulin glargine-yfgn 100 UNIT/ML injection 20 Units 20 Units Subcutaneous BID Fabienne Palm MD 20 Units at 08/11/25824 insulin lispro (Admelog) 100 units/mL injection - Correction - Resistant Dose 0- 10 Units Subcutaneous TID with meals Fabienne Palm MD 4 Units at 08/11/25824 insulin lispro (Admelog) injection - Correction - Nighttime Dose 0-3 Units Subcutaneous Twice at night Fabienne aPlm MD 1 Units at 08/09/258 Insulin Lispro (Admelog, HumaLOG) 100 UNIT/ML injection 8 Units 8 Units Subcutaneous TID with mealsUche Fonseca MD 8 Units at 08/10/25 1635 lisinopril tablet 40 mg 40 mg Oral Daily Mery Garcia PA 40 mg at 08/11/25824 melatonin tablet 3 mg 3 mg Oral Nightly PRN Mery Garcia PA meropenem (Merrem) 2 g in sodium chloride 0.9 % 100 mL IVPB 2 g Intravenous q8h Uche Fonseca MD 50 mL/hr at 08/11/25 0845 2 g at 08/11/25 08 multivitamin (Theragran-M) tablet 1 tablet 1 tablet Oral Daily Mery Garcia PA 1 tabletat 08/11/25823 polyethylene glycol (Miralax) packet 17 g 17 g Oral Daily Fabienne aPlm MD 17 g at 824 sodium chloride 0.9 % flush 10 mL 10 mL Intravenous q12h Mery Garcia PA 10 mL at 08/11/25 0136 And sodium chloride 0.9 % flush 10 mL 10 mL Intravenous PRN Mery Garcia PA vancomycin (Vancocin) 1,250 mg in sodium chloride 0.9% 250 mL IVPB (vial adapter required) 1,250 mgIntravenous q12h Fabienne Palm MD 220 mL/hr at 08/11/25 0526 1,250 mg at 08/11/25 0526 Facility-Administered Medications Ordered in Other Encounters Medication Dose Route Frequency Provider Last Rate Last Admin ePHEDrine Sulfate (Akovaz) injection Intravenous PRN Lucia Reed CRNA, DNP 5 mg at 08/11/25 1303 lactated Ringer's infusion Intravenous Continuous PRN Lucia Reed CRNA, DNP New Bag at 08/11/25 1227 lidocaine PF (Xylocaine) 2 % injection Intravenous PRN Lucia Reed CRNA, DNP 40 mg at 08/11/25 1227 ondansetron (Zofran) injection Intravenous PRN Lucia Reed CRNA, DNP 4 mg at 08/11/25 1301 phenylephrine in NS (Ric-Synephrine) 100 mcg/mL prefilled syringe Intravenous PRN Lucia Reed CRNA DNP 100 mcg at 08/11/25 1303 propofol (Diprivan) injection Intravenous PRN Lucia Reed CRNA, DNP 150 mg at 08/11/25 1227 Cosigned by Lonny Dunne MD at 08/11/2025 3:42 PM EST Associated attestation - Lonny Dunne MD - 08/11/2025 3:42 PM EST I saw and evaluated the patient with the resident/fellow. I discussed the case with the resident/fellow and agree with the findings and plan as documented. As per previous note, his erythema of patient's LEFT lateral foot looks worsend despite Vanco and Zosyn --> switched 08/10/2025 to Vanco and Meropenem. 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 Also has cats at home, potential for cat litter on floors.) Pt to go to OR today for toe amputation. Please send deep tissue and bone for gram stains, aerobic+anaerobic bacterial cultures, fungal stains and cultures, AFB stains and cultures. Continue Vancomycin and Meropenem for now. If toe amputation performed through clean bone and confidence high all bony foci of infection are amputated, then should only need 5-7 days of abx to rx residual SSTI. (If there is retained deep infection, then would need 4-6 weeks of high-dose abx.) Final abx recs to follow. The following complex inpatient infectious disease services were performed today: Complex antimicrobial therapy counseling and treatment * Progress Notes - Amisha Chang RN - 08/11/2025 11:25 AM EST Case Management Adult Progress Note Hi Goode 60 y.o. male CSN: [id number] Admission: 08/07/2025 5:18 AM Primary Problem: Cellulitis and abscess of toe of left foot Anticipated Discharge Date: TBD Has Discharge Plans Changed? No Medicare Second Notice: Not applicable - medicaid insurance Medically Ready for Discharge: Anticipated in 2-4 Days Additional Comments Patient admitted after stepping on a nail two days ago. Per MD patient is not medically ready for discharge. ID consulted. Vascular surgery consulted. Patient to go to OR today for toe amputation. Patient on IV abx. RNCM will continue to monitor for further discharge needs. Amisha Chang RN * Care Plan - Garrett Puentes RN - 08/11/2025 11:06 AM EST Problem: Adult Inpatient Plan of Care Goal: Plan of Care Review Outcome: Ongoing, Progressing Flowsheets (Taken 08/11/2025 1101) Progress: no change Plan of Care Reviewed With: patient Goal: Patient-Specific Goal (Individualized) Outcome: Ongoing, Progressing Flowsheets (Taken 08/11/2025 0800) Patient/Family-Specific Goals (Include Timeframe): Patient will remain free from falls and injuriesduring dayshift today Individualized Care Needs: Safety Anxieties, Fears or Concerns: None stated at the moment Goal: Absence of Hospital-Acquired Illness or Injury Outcome: Ongoing, Progressing Intervention: Identify and Manage Fall Risk Flowsheets (Taken 08/11/2025 0800) Safety Promotion/Fall Prevention: activity supervised assistive device/personal items within reach clutter-free environment maintained fall prevention program maintained lighting adjusted mobility aid in reach nonskid shoes/slippers when out of bed room organization consistent safety round/check completed Intervention: Prevent Skin Injury Flowsheets (Taken 08/11/2025 1000) Body Position: turned Skin Protection: protective footwear used Intervention: Prevent and Manage VTE (Venous Thromboembolism) Risk Flowsheets (Taken 08/11/2025 110) VTE Prevention/Management: education provided Intervention: Prevent Infection Flowsheets (Taken 08/11/2025 110) Infection Prevention: rest/sleep promoted single patient room provided hand hygiene promoted Goal: Optimal Comfort and Wellbeing Outcome: Ongoing, Progressing Intervention: Monitor Pain and Promote Comfort Flowsheets (Taken 08/11/2025 0800) Pain Management Interventions: declines diversional activity provided emotional support position adjusted pillow support provided Intervention: Provide Person-Centered Care Flowsheets (Taken 08/11/2025 110) Trust Relationship/Rapport: care explained choices provided emotional support provided empathic listening provided questions answered questions encouraged reassurance provided thoughts/feelings acknowledged Problem: Pain Acute Goal: Optimal Pain Control and Function Outcome: Ongoing, Progressing Intervention: Optimize Psychosocial Wellbeing Flowsheets (Taken 08/11/2025 1101) Supportive Measures: active listening utilized decision-making supported Diversional Activities: television Spiritual Activities Assistance: affirmation provided personal rituals encouraged Intervention: Develop Pain Management Plan Flowsheets (Taken 08/11/2025 0800) Pain Management Interventions: declines diversional activity provided emotional support position adjusted pillow support provided Intervention: Prevent or Manage Pain Flowsheets (Taken 08/11/2025 110) Sensory Stimulation Regulation: quiet environment promoted care clustered Bowel Elimination Promotion: privacy promoted ambulation promoted Sleep/Rest Enhancement: relaxation techniques promoted consistent schedule promoted Medication Review/Management: medications reviewed Problem: Skin or Soft Tissue Infection Goal: Absence of Infection Signs and Symptoms Outcome: Ongoing, Progressing Intervention: Minimize and Manage Infection Progression Flowsheets Taken 08/11/2025 1101 Infection Management: aseptic technique maintained Fever Reduction/Comfort Measures: lightweight bedding lightweight clothing Infection Prevention: rest/sleep promoted single patient room provided hand hygiene promoted Taken 08/11/2025 0800 Isolation Precautions: protective precautions maintained Intervention: Provide Meticulous Infection Site Care Flowsheets (Taken 08/11/20251100) Topical Inflammation Care: (Site assessed) other (see comments) Problem: Wound Goal: Optimal Wound Healing Outcome: Ongoing, Progressing Intervention: Promote Wound Healing Flowsheets (Taken 08/11/20251100) Sleep/Rest Enhancement: relaxation techniques promoted consistent schedule promoted * Discharge Instr - Activity - Gisel Monteiro RN - 08/11/2025 9:19 AM EST Move around as you are able. Do not drive while taking narcotic medications. Use assistive equipment as instructed. Weight bearing as tolerated through left leg. * Significant Event - Aakash Frausto MD - 08/11/2025 8:29 AM EST Patient to OR today for Left 4th Toe amputation possible wound vac placement with Dr. Moyer - H&P note at admission/most recent progress note reviewed and with no changes - The risks, benefits, indications, contraindications, and surgical alternatives were explained to the patient. Specifically, the risks of surgery, including bleeding, infection, injury to nearby organs or structures, need for additional surgery or procedures, wound complications, and complicationsof general anesthesia. Commonly associated risks of the procedure where also discussed with the patient in detail. The patient participated in the discussion and was given an opportunity to ask questions. - Written and informed consent is located in the patient's chart. - NPO since midnight * Consults - Mikki Martin RD - 08/11/2025 7:22 AM EST Adult Nutrition Evaluation Note Hi Goode 60 y.o. male CSN: [id number] Room/Bed OR/- Nutrition evaluation type: screen Reason for evaluation: wound Hospital course: 60 yoM presents to ED 08/07 from OSH with a left 4th toe puncture wound from stepping on a nail [address] LLE noted concern for possible osteomyelitis and was given clindamycin, at OSH, for possible necrotizing infection before being transferred to . Pt admitted with cellul itis and abscess of toe of left foot. MRI left foot in CT left foot demonstrate ulceration along the plant lateral aspect of the 4th digit that extends to the PIP joint. Past medical/ surgical history: Past Medical History[1] Surgical History[2] Social history: Social History[3] Additional comments: Pt in OR for left 4th toe amputation with possible wound vac placement. Vitals and Basic Assessment: BP: (!) 146/82 Temp: 37 ??C (98.6 ??F) Oxygen Therapy: None (Room air) [place] Coma Scale Score: 15 Garry Scale Score: 20 Jensen/Cubbin Pressure Risk Score: 45 Most Recent BM Date: 08/11/25 Edema: Left lower extremity Allergies: NKFA Medications: Current Scheduled Medications[4] Meds were reviewed: Yes Labs: Lab Results Component Value Date GLUCOSE 205 (H) 08/11/2025 CALCIUM 9.5 08/11/2025 NA 134 (L) 08/11/2025 K 4.1 08/11/2025 CO2 22 08/11/2025 CL 100 08/11/2025 BUN 19 08/11/2025 CREATININE 1.03 08/11/2025 PHOS 2.7 08/11/2025 MG 1.8 (L) 08/11/2025 HGBA1C 9.5 (H) 08/07/2025 Lab Results Component Value Date WBC 8.04 08/11/2025 HGB 14.0 08/11/2025 HCT 40.7 08/11/2025 MCV 86 08/11/2025 PLT 176 08/11/2025 Anthropometrics: Height: 170.2 cm (5' 7 ) Weight: 80.1 kg (176 lb 9.4 oz) BMI (Calculated): 27.65 Weight Evaluation: Overweight (BMI 25-29.9) [place] Body Weight (kg): 67.2 Percent [place] Body Weight: 118 Estimated Needs: Metabolic Cart Study Results: Current Nutrition Intake: Diet Order: Adult Diet Diet Texture: Regular Adult Carbohydrate Restriction: Consistent CHO 2 ([id number] Mundo, 80 g/meal) Percent Meals Eaten (%): 100% 08/11: Pt NPO today Diet Experience and Nutrition History: Diet Education Provided: Will monitor Pertinent home medications: atorvastatin, bupropion, vitamin D3, finasteride, glipizide, insulin, lisinopril-hydrochlorothiazide, MVI Protestant needs: Nutrition Focused Physical Exam: Unable to Complete Exam: Patient out of room (OR) Physical exam performed on (date): Assessment of Malnutrition: Nutrition Problem: Increased nutrient needs pro related to increased metabolic demand for healing as evidenced by wound. Status of Nutrition Diagnosis: New Altered nutrition related laboratory values, glu related to organ dysfunction as evidenced by elevated blood glucose and a1c. Status of Nutrition Diagnosis: New Nutrition Interventions and Recommendations: - Resume CC2 diet as tolerated and medically appropriate -Add Pop BID for wound healing Nutrition Monitoring and Goals: - Glu <200 - Wound healing - NFPE at follow up as able - PO intake > 75% of most meals - Monitor po intake and tolerance, weight changes, labs, GI function and skin integrity. Acuity Level: 1 Mikki Martin, SHANNAN, LD [1] Past Medical History: Diagnosis Date Essential (primary) hypertension History of bladder cancer Hyperlipidemia, mixed Insulin dependent type 2 diabetes mellitus Major depressive disorder Osteoarthritis [2] Past Surgical History: Procedure Laterality Date TRANSURETHRAL RESECTION OF PROSTATE N/A [3] Social History Socioeconomic History Marital status: Spouse name: None Number of children: None Years of education: None Highest education level: None Occupational History None Tobacco Use Smoking status: Never Smokeless tobacco: Never Substance and Sexual Activity Alcohol use: No Drug use: Never Sexual activity: None Other Topics Concern None Social History Narrative None [4] [Transfer Hold] atorvastatin, 40 mg, Oral, Nightly [Transfer Hold] buPROPion SR, 150 mg, Oral, Daily [Transfer Hold] cholecalciferol, 1,000 Units, Oral, Daily [Transfer Hold] docusate sodium, 250 mg, Oral, Daily [Transfer Hold] finasteride, 5 mg, Oral, Daily [Transfer Hold] hydroCHLOROthiazide, 25 mg, Oral, Daily [Transfer Hold] insulin glargine-yfgn, 20 Units, Subcutaneous, BID [Transfer Hold] insulin lispro, 0-10 Units, Subcutaneous, TID with meals [Transfer Hold] insulin lispro, 0-3 Units, Subcutaneous, Twice at night [Transfer Hold] Insulin Lispro, 8 Units, Subcutaneous, TID with meals [Transfer Hold] lisinopril, 40 mg, Oral, Daily meropenem, 2 g, Intravenous, q8h [Transfer Hold] multivitamin, 1 tablet, Oral, Daily [Transfer Hold] polyethylene glycol, 17 g, Oral, Daily Povidone-Iodine, 1 Application, Nasal, Once Insert peripheral IV, , , Once AND Saline lock IV, , , Once AND sodium chloride, 10 mL, Intravenous, q12h AND sodium chloride, 10 mL, Intravenous, PRN [COMPLETED] Insert peripheral IV, , , Once AND [COMPLETED] Saline lock IV, , , Once AND [Transfer Hold] sodium chloride, 10 mL, Intravenous, q12h AND [Transfer Hold] sodium chloride, 10 mL, Intravenous, PRN vancomycin, 1,250 mg, Intravenous, q12h * Consults - Lyn Edwards MD - 08/11/2025 7:19 AM ESTAssociated Order(s): Inpatient consult to Vascular Surgery Images from the original note were not included. [facility] Department of Surgery Division of Vascular Surgery History & Physical Note Reason for Consult: Left 4th toe wound Requesting Service: Hospital Medicine Consult Date and Time: 08/11/2025 @ 1727 Inpatient consult to Vascular Surgery Consult performed by: Lyn Edwards MD Consult ordered by: Uche Fonseca MD Subjective History of Present Illness: Chief Complaint: nail to foot Hi Goode is a 60 y.o. male with PMHx significant for IDDM2, HLD, HTN, bladder cancer (in remission), and depression who presented to the [facility] on 08/07/2025 with left fourth toe wound. He reports an incident on where he inadvertently stepped on a nail at his workplace. He experienced a sharp sensation in his foot. Upon removing his boot, he discovered the nail, which he promptly removed. He observed minimal bleeding from the wound and did not perceive it as deep. He cleansed the wound with peroxide at home. He went to work on Saturday and by the end of the day, he noticed swelling in his foot and began experiencing body aches. He also reported feeling rigors but no fevers or diaphoresis. Upon returning home, he found his entire foot to be red and swollen, which prompted him to seek evaluation. MRI showed evidence of cellulitis with involvement of proximal interphalangeal joint space. He does not smoke, dip tobacco, use nicotine, alcohol, or any other drugs. 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 Does not take antiplatelets/anticoagulants. Review of Systems: Relevant review of systems was obtained as able and is negative unless stated above in HPI. History Obtained From: Patient Past Medical History: Past Medical History[1] Allergies And Reactions: Allergies[2] Past Surgical History: Surgical History[3] Family Medical History: Family History[4] On his mother's side, both grandparents of heart attacks, his mother had a stroke while sleeping, and all his aunts have from heart attacks. On his father's side, his father from a heart attack. Social History: Social History Socioeconomic History Marital status: Spouse name: Not on file Number of children: Not on file Years of education: Not on file Highest education level: Not on file Occupational History Not on file Tobacco Use Smoking status: Never Smokeless tobacco: Never Substance and Sexual Activity Alcohol use: No Drug use: Never Sexual activity: Not on file Other Topics Concern Not on file Social History Narrative Not on file Social Drivers of Health Financial Resource Strain: Not on file Food Insecurity: No Food Insecurity (08/09/2025) Hunger Vital Sign Worried About Running Out of Food in the Last Year: Never true Ran Out of Food in the Last Year: Never true Transportation Needs: No Transportation Needs (08/09/2025) PRAPARE - Transportation Lack of Transportation (Medical): No Lack of Transportation (Non-Medical): No Physical Activity: Not on file Stress: Not on file Social Connections: Not on file Intimate Partner Violence: Not At Risk (08/09/2025) Humiliation, Afraid, Rape, and Kick questionnaire Fear of Current or Ex-Partner: No Emotionally Abused: No Physically Abused: No Sexually Abused: No Housing Stability: Low Risk (08/09/2025) Housing Stability Vital Sign Unable to Pay for Housing in the Last Year: No Number of Times Moved in the Last Year: 0 Homeless in the Last Year: No Immunizations: Immunization History Administered Date(s) Administered Moderna COVID-19 Vaccine (Land Commissioner) 12+ years 06/22/2021, 07/21/2021, 01/25/2022 Moderna COVID-19 Vaccine Bivalent 6months+ 08/08/2022 I have updated and confirmed the past medical, surgical, family and social history. Home Medications: Prior to Admission medications Medication Sig Start Date End Date Taking? Authorizing Provider atorvastatin (Lipitor) 40 MG tablet Take 1 tablet by mouth daily. Yes Provider, Historical buPROPion SR (Wellbutrin SR) 150 MG 12 hr tablet Take 1 tablet by mouth daily. Do not crush, chew, or split. Yes Provider, Historical cholecalciferol (Vitamin D3) 25 MCG (1000 UT) tablet Take 1 tablet by mouth daily. Yes Provider, Historical finasteride (Proscar) 5 MG tablet Take 1 tablet by mouth daily. Do not crush, chew, or split. Yes Provider, Historical glipiZIDE XL 10 MG 24 hr tablet Take 1 tablet by mouth daily. Do not crush, chew, or split. Yes Provider, Historical insulin aspart (NovoLOG FLEXPEN) 100 UNIT/ML injection pen Inject 0-12 Units under the skin 3 timesa day before meals. Yes Provider, Historical insulin glargine (Lantus SoloStar) 100 UNIT/ML injection pen Inject 20-25 Units under the skin nightly. Yes Provider, Historical lisinopril-hydroCHLOROthiazide 20-12.5 MG tablet Take 2 tablets by mouth daily. Yes Provider, Historical multivitamin (Theragran-M) tablet Take 1 tablet by mouth daily. Yes Provider, Historical Anti-Thrombotic Medications: Is this patient taking warfarin, new oral anti-coagulant, or anti-platelet medication? No If Yes, What Medication: N/A Current Hospital Medications: Current Medications[5] Objective Objective: Visit Vitals BP 121/77 Pulse 68 Temp 36.5 ??C (97.7 ??F) Ht 1.702 m (5' 7 ) Wt 80.1 kg (176 lb 9.4 oz) SpO2 91% BMI 27.66 kg/m?? @ Physical Exam: Physical Exam HENT: Head: Normocephalic. Mouth/Throat: Mouth: Mucous membranes are moist. Pharynx: Oropharynx is clear. Cardiovascular: Rate and Rhythm: Normal rate. Pulses: Dorsalis pedis pulses are 2+ on the right side and 2+ on the left side. Posterior tibial pulses are 2+ on the right side and 2+ on the left side. Pulmonary: Effort: Pulmonary effort is normal. Skin: General: Skin is warm and dry. Comments: Deep wound to plantar aspect of left 4th toe that probes to bone. Neurological: Mental Status: He is alert. Laboratory: CBC WBC 8.04 Hb 14.0 Plt 176 Hct 40.7 ANC 5.60 INR ??, PTT ??, Anti-Xa ?? MCV 86 BMP Na 134 (L) Cl 100 BUN 19 Glu 205 (H) K 4.1 Co2 22 Cr 1.03 Ca 9.5 iCa ?? Mg 1.8 (L), Phos 2.7 Lactate ?? LFT AST ?? AlkPhos ?? T Prot ?? ALK ?? Bili ?? Alb ?? D.Bili ?? Imaging: === 08/07/25 === MR FOOT LEFT W AND WO IV CONTRAST - Narrative - CLINICAL INDICATION: to assess for underlying osteomyelitis vs necrotizing infection TECHNIQUE: Multiplanar multiecho sequences were obtained utilizing T1 and T2 weighting with and without the administration of intravenous contrast. 17.5 mL of Dotarem was administered. COMPARISON: None. FINDINGS: Evaluation is somewhat limited by inhomogeneous fat saturation overlying the digits. Bone and Bone Marrow: Edema-like marrow signal change in the middle and proximal phalanx of the fourth digit with no definitive enhancement. There is subtle irregularity of the cortex of the middle phalanx. Increased signal within the third and fifth digits is favored to be secondary to an homogeneous fat saturation. Soft Tissues: Ulceration overlying the plantar lateral aspect of the fourth digit which extends to the proximal interphalangeal joint. Edema and enhancement is noted throughout the fourth digit extending to the dorsal lateral aspect of the forefoot. There is fluid signal extending dorsally from theproximal interphalangeal joint could represent effusion. Edema throughout the plantar musculature of the foot with no associated enhancement may represent denervation myositis. The flexor and extensors appear grossly intact. No discrete organized fluid collection. - Impression - Evaluation is somewhat limited by inhomogeneous fat saturation overlying the digits. Ulceration along the plantar lateral aspect of the fourth digit appears to extend to the proximal interphalangeal joint. There is further effusion of the joint space could represent associated septicjoint. Further edema and enhancement throughout the fourth digit likely represents a component of ce llulitis. Evaluation of marrow signal is somewhat limited by inhomogeneous fat saturation, within these limits there is mild edema-like marrow signal change along the proximal interphalangeal joint of the fourth digit however no significant enhancement. This could be potentially reactive however given concern for septic joint follow-up could be consider to exclude early infection. Further edema extending into the dorsal lateral aspect of the forefoot could represent further cellulitis. CRITICAL RESULT: No. COMMUNICATION: Per this written report. Drafted by James Bianchi on 08/09/2025 8:09 AM Final report signed by James Bianchi on 08/09/2025 8:22 AM Radiographic Interpretation: I have reviewed the imaging above and agree with the radiologist interpretation. Assessment/Plan Assessment & Plan: Hi Goode is a 60 y.o. male with PMHx notable for IDDM2, HLD, HTN, bladder cancer (in remission), and depression who presented to [facility] with left fourth toe wound after stepping on a nail last . Wound represents a deep space infection given that there is involvement of PIP joint. Had extensive discussion with patient about the importance of blood glucose control to mitigate risk of developing future wounds on his feet. With palpable pulses on exam, he likely has the ability for wound healing following amputation. He is amenable to proceeding with left fourth toe amputation. Dispo: Vascular Surgery will continue to follow this patient (SGR2) This Consult, Assessment, and Plan has been discussed with Dr. Silvestre, Attending Physician Lyn Edwards MD General Surgery, PGY2 Pager: [1] Past Medical History: Diagnosis Date Essential (primary) hypertension History of bladder cancer Hyperlipidemia, mixed Insulin dependent type 2 diabetes mellitus Major depressive disorder Osteoarthritis [2] Allergies Allergen Reactions Codeine Itching [3] Past Surgical History: Procedure Laterality Date TRANSURETHRAL RESECTION OF PROSTATE N/A [4] Family History Problem Relation Name Age of Onset Heart attack Mother Diabetes Mother Diabetes Father Heart attack Maternal Grandmother Diabetes Maternal Grandmother Heart attack Maternal Grandfather Diabetes Maternal Grandfather [5] Current Facility-Administered Medications Medication Dose Route Frequency Provider Last Rate Last Admin acetaminophen (Tylenol) tablet 1,000 mg 1,000 mg Oral q6h PRN Mery Garcia PA 1,000 mg at 08/09/251950 atorvastatin (Lipitor) tablet 40 mg 40 mg Oral Nightly Mery Garcia PA 40 mg at 08/10/252026 buPROPion SR (Wellbutrin SR) 12 hr tablet 150 mg 150 mg Oral Daily Mery Garcia PA 150 mg at 08/10/25835 cholecalciferol (Vitamin D-3) tablet 1,000 Units 1,000 Units Oral Daily Mery Garcia PA1,000 Units at 08/10/25835 glucose (Glutose) 40 % oral gel 15-30 grams of glucose 15-30 grams of glucose Sublingual q15 min PRN Mery Garcia PA Or dextrose 10 % (D10W) bolus 125 mL 125 mL Intravenous q15 min PRN Mery Garcia PA Or dextrose 10 % (D10W) bolus 250 mL 250 mL Intravenous q15 min PRN Mery Garcia PA Or glucagon (human recombinant) injection 1 mg 1 mg Intramuscular q15 min PRN Mery Garcia PA docusate sodium (Colace) capsule 250 mg 250 mg Oral Daily Fabienne Palm MD 250 mg at 08/10/25829 finasteride (Proscar) tablet 5 mg 5 mg Oral Daily Mery Garcia PA 5 mg at 08/10/25835 hydroCHLOROthiazide (HYDRODiuril) tablet 25 mg 25 mg Oral Daily Mery Garcia PA 25 mg at 08/10/25835 ibuprofen tablet 400 mg 400 mg Oral q6h PRN Mery Garcia PA insulin glargine-yfgn 100 UNIT/ML injection 20 Units 20 Units Subcutaneous BID Fabienne Palm MD 20 Units at 08/10/252026 insulin lispro (Admelog) 100 units/mL injection - Correction - Resistant Dose 0- 10 Units Subcutaneous TID with meals Fabienne Palm MD 4 Units at 08/10/25 163 insulin lispro (Admelog) injection - Correction - Nighttime Dose 0-3 Units Subcutaneous Twice at night Fabienne Palm MD 1 Units at 08/09/252117 Insulin Lispro (Admelog, HumaLOG) 100 UNIT/ML injection 8 Units 8 Units Subcutaneous TID with mealsUche Fonseca MD 8 Units at 08/10/25 163 lisinopril tablet 40 mg 40 mg Oral Daily Mery Garcia PA 40 mg at 08/10/25 0830 melatonin tablet 3 mg 3 mg Oral Nightly PRN Mery Garcia PA meropenem (Merrem) 2 g in sodium chloride 0.9 % 100 mL IVPB 2 g Intravenous q8h Uche Fonseca MD 50 mL/hr at 08/10/25 2353 2 g at 08/10/25 2353 multivitamin (Theragran-M) tablet 1 tablet 1 tablet Oral Daily Mery Garcia PA 1 tabletat 08/10/25 0836 polyethylene glycol (Miralax) packet 17 g 17 g Oral Daily Fabienne Palm MD 17 g at 830 sodium chloride 0.9 % flush 10 mL 10 mL Intravenous q12h Mery Garcia PA 10 mL at 08/11/25 0136 And sodium chloride 0.9 % flush 10 mL 10 mL Intravenous PRN Mery Garcia PA vancomycin (Vancocin) 1,250 mg in sodium chloride 0.9% 250 mL IVPB (vial adapter required) 1,250 mgIntravenous q12h Fabienne Palm MD 220 mL/hr at 08/11/25 0526 1,250 mg at 08/11/25 0526 Cosigned by Kvng Silvestre MD at 08/16/2025 12:11 PM EST Associated attestation - Kvng Silvestre MD - 08/16/2025 12:11 PM EST I saw and evaluated the patient with the resident/fellow. I discussed the case with the resident/fellow and agree with the findings and plan as documented. * Consults - Mery Ledezma MD - 08/10/2025 8:00 PM ESTAssociated Order(s): IP CONSULT TO ORTHOPAEDICS ORTHOPAEDIC SURGERY TRAUMA CONSULT NOTE Consult Received: 20:15 Patient Examined: 20:15 CHIEF COMPLAINT AND REASON FOR VISIT Left foot wound, concern for left fourth toe PIP joint septic arthritis HISTORY OF PRESENT ILLNESS Hi Goode is a 60 y.o. male with past medical history of type 2 diabetes last A1c 9.5 on insulin, hypertension, hyperlipidemia, bladder cancer in 2022 in remission presents as a orthopedic consult for concern for septic arthritis. Orthopedics was consulted due to concern for injury of his left 4th toe and PIP joint septic arthritis. Per patient he stepped on a nail this past and he had swelling and redness ascending his left lower extremity. He is currently admitted to the hospital and being treated for cellulitis. On interview the patient states that he does not haveany pain in his left 4th toe at rest or with movement. Patient states that his cellulitis appears to be improving compared to the last few days. He has no other complaints at this time. PAST MEDICAL HISTORY [] Past Medical History[1] MEDICATIONS Current Medications[2] ALLERGIES Allergies[3] PAST SURGICAL HISTORY [] Surgical History[4] FAMILY HISTORY Reviewed, Noncontributory. 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 REVIEW OF SYSTEMS 14 point review of systems conducted and was otherwise negative except for mentioned in HPI PHYSICAL EXAMINATION General Physical Exam Constitutional No acute distress, Vitals as below Head Normocephalic and atraumatic, appropriate dentition Cardiovascular Peripheral perfusion intact, pulses as below Pulmonary/Chest Good respiratory effort, symmetric chest expansion, no respiratory difficulty appreciated Neurological Alert and oriented to person, place, and time Psychiatric Normal mood and affect, behavior and judgment Skin No rashes or lesions except as mentioned below, no masses Eyes EOMI, Sclera anicteric Abdomen Soft, nontender, nondistended Body mass index is 27.66 kg/m??. VITALS: Visit Vitals BP 131/73 Pulse 71 Temp 37.1 ??C (98.8 ??F) Resp 16 Ht 1.702 m (5' 7 ) Wt 80.1 kg (176 lb 9.4 oz) SpO2 96% BMI 27.66 kg/m?? Smoking Status Never BSA 1.95 m?? FOCUSED MUSCULOSKELETAL EXAM: LEFT LOWER EXTREMITY Inspection: Cellulitic changes present to the patient's left lower extremity along the lateral dorsal and plantar aspect of foot, ulcerative wound present on the lateral aspect of his 4th toe with small amount of purulent drainage. No gangrenous change to digit. No areas of crepitus. No bullae formation. IMAGING MRI left foot in CT left foot demonstrate ulceration along the plantar lateral aspect of the 4th digit that extends to the PIP joint. Edema and enhancement presentation of cellulitis. ASSESSMENT AND PLAN Hi Goode is a 60 y.o. male patient with left 4th toe wound with ulceration and likely communication with the PIP joint. Patient has an open draining on the plantar aspect of the in this area with surrounding cellulitis. Compared to previous clinical photos, this appears to be improving. Inflammatory labs are downtrending on IV antibiotic therapy. Defer management of foot wound to vascular surgery as they are currently following. Continue IV antibiotics according to recommendations per Infectious Disease. Orthopedic surgery sign off Cody Ledezma MD PGY-3, Orthopaedic Surgery [facility] Orthopaedic Trauma Service Pager: [phone] Orthopaedic Recon/Spine/Foot and Ankle Service Pager: [phone] [1] Past Medical History: Diagnosis Date Essential (primary) hypertension History of bladder cancer Hyperlipidemia, mixed Insulin dependent type 2 diabetes mellitus Major depressive disorder Osteoarthritis [2] Current Facility-Administered Medications: acetaminophen (Tylenol) tablet 1,000 mg, 1,000 mg, Oral, q6h PRN, Mery Garcia PA, 1,000 mg at 08/09/251950 atorvastatin (Lipitor) tablet 40 mg, 40 mg, Oral, Nightly, Mery Garcia PA, 40 mg at 08/09/252014 buPROPion SR (Wellbutrin SR) 12 hr tablet 150 mg, 150 mg, Oral, Daily, Mery Garcia PA,150 mg at 08/10/25 08 cholecalciferol (Vitamin D-3) tablet 1,000 Units, 1,000 Units, Oral, Daily, Mery Garcia PA, 1,000 Units at 08/10/25 08 glucose (Glutose) 40 % oral gel 15-30 grams of glucose, 15-30 grams of glucose, Sublingual, q15 minPRN OR dextrose 10 % (D10W) bolus 125 mL, 125 mL, Intravenous, q15 min PRN OR dextrose 10 %(D10W) bolus 250 mL, 250 mL, Intravenous, q15 min PRN OR glucagon (human recombinant) injection1 mg, 1 mg, Intramuscular, q15 min PRN, Mery Garcia PA docusate sodium (Colace) capsule 250 mg, 250 mg, Oral, Daily, Fabienne Palm MD, 250 mg at 08/10/25829 finasteride (Proscar) tablet 5 mg, 5 mg, Oral, Daily, Mery Garcia PA, 5 mg at 836 hydroCHLOROthiazide (HYDRODiuril) tablet 25 mg, 25 mg, Oral, Daily, Mery Garcia PA, 25mg at 08/10/25 08 ibuprofen tablet 400 mg, 400 mg, Oral, q6h PRN, Mery Garcia PA insulin glargine-yfgn 100 UNIT/ML injection 20 Units, 20 Units, Subcutaneous, BID, Fabienne Palm MD, 20 Units at 08/10/25 08 insulin lispro (Admelog) 100 units/mL injection - Correction - Resistant Dose, 0-10 Units, Subcutaneous, TID with meals, Fabienne Palm MD, 4 Units at 08/10/25 163 insulin lispro (Admelog) injection - Correction - Nighttime Dose, 0-3 Units, Subcutaneous, Twice atnight, Fabienne Palm MD, 1 Units at 08/09/25 211 Insulin Lispro (Admelog, HumaLOG) 100 UNIT/ML injection 8 Units, 8 Units, Subcutaneous, TID with meals, Uche Fonseca MD, 8 Units at 08/10/25 1635 lisinopril tablet 40 mg, 40 mg, Oral, Daily, Mery Garcia PA, 40 mg at 08/10/25 0830 melatonin tablet 3 mg, 3 mg, Oral, Nightly PRN, Mery Garcia PA meropenem (Merrem) 2 g in sodium chloride 0.9 % 100 mL IVPB, 2 g, Intravenous, q8h, Uche Fonseca MD, Last Rate: 50 mL/hr at 08/10/25 1634, 2 g at 08/10/25 1634 multivitamin (Theragran-M) tablet 1 tablet, 1 tablet, Oral, Daily, Mery Garcia PA, 1 tablet at 08/10/25 0836 polyethylene glycol (Miralax) packet 17 g, 17 g, Oral, Daily, Fabienne Palm MD, 17 g at 08/10/25 0830 [COMPLETED] Insert peripheral IV, , , Once AND [COMPLETED] Saline lock IV, , , Once AND sodium chloride 0.9 % flush 10 mL, 10 mL, Intravenous, q12h, 10 mL at 08/10/25 1311 AND sodium chloride 0.9 % flush 10 mL, 10 mL, Intravenous, PRN, Mery Garcia PA vancomycin (Vancocin) 1,250 mg in sodium chloride 0.9% 250 mL IVPB (vial adapter required), 1,250 mg, Intravenous, q12h, Fabienne Palm MD, Last Rate: 220 mL/hr at 08/10/25 1714, 1,250 mg at 08/10/25 1714 [3] Allergies Allergen Reactions Codeine Itching [4] Past Surgical History: Procedure Laterality Date TRANSURETHRAL RESECTION OF PROSTATE N/A Cosigned by Kemal Manuel MD at 08/16/2025 12:51 PM EST * Care Plan - Kayla Vaz RN - 08/10/2025 8:00 PM EST Problem: Adult Inpatient Plan of Care Goal: Plan of Care Review Outcome: Ongoing, Progressing Flowsheets (Taken 08/10/20251999) Progress: improving Plan of Care Reviewed With: patient Goal: Patient-Specific Goal (Individualized) Outcome: Ongoing, Progressing Goal: Absence of Hospital-Acquired Illness or Injury Outcome: Ongoing, Progressing Goal: Optimal Comfort and Wellbeing Outcome: Ongoing, Progressing Problem: Pain Acute Goal: Optimal Pain Control and Function Outcome: Ongoing, Progressing Problem: Skin or Soft Tissue Infection Goal: Absence of Infection Signs and Symptoms Outcome: Ongoing, Progressing * Progress Notes - Consuelo Solano RN - 08/10/2025 5:26 PM EST OPAT Enrollment Progress Note Patient: Hi Goode : 1965 Referring ID Team: Bone and Joint Indications for Use: Osteoarticular Infection, non-prosthetic Evaluation Start Date: 08/10/25 Evaluation Status: In Progress Spoke with patient via phone. Patient lives with who does not drive. Cousin, Sabina ([phone]) who can provide with transportation to hospital for OPAT evaluation on Saturday 12/2 PM. OPAT NN will continue to follow. Consuelo Solano RN 08/10/2025 * Progress Notes - Raymond Morris MD - 08/10/2025 4:43 PM EST Images from the original note were not included. [employer] Department of Surgery Division of Acute Care / Emergency General Surgery Surgery Progress Note 08/10/25 Hi Goode Subjective Subjective: HPI Hi Goode is a 60 y.o. male with PMHx of DM on insulin who presents from an OSH with puncturewound to left 4th toe after stepping on glass. Interval: Primary team reached out to general surgery to concern for wounds needing debridement andMRI findings of septic arthritis. Patient reports his pain has been acceptable and so he walked on his toe today. He denies drainage. He reports erythema has improved. Edited by: Raymond Morris MD at 08/10/2025 1648 Review of Systems: Relevant review of systems was obtained as able and is negative unless stated above in HPI. Objective Objective: Vital signs: Vitals: 08/10/25 1535 BP: 129/77 Pulse: 87 Resp: Temp: 36.8 ??C (98.2 ??F) SpO2: 95% Physical Exam: Physical Exam Constitutional: General: He is not in acute distress. Appearance: He is not ill-appearing. Cardiovascular: Rate and Rhythm: Normal rate. Pulmonary: Effort: Pulmonary effort is normal. No respiratory distress. Comments: RA Abdominal: General: There is no distension. Palpations: Abdomen is soft. Tenderness: There is no abdominal tenderness. Musculoskeletal: Comments: Open wound on left 4th plantar toe. No drainage. Wound does seem to probe to bone. Some non-blanching erythema over dorsal aspect of foot, patient reports this is improved. Skin: General: Skin is warm. Neurological: General: No focal deficit present. Mental Status: He is alert. Psychiatric: Mood and Affect: Mood normal. Behavior: Behavior normal. Intake/Output Summary (Last 24 hours) at 08/10/2025 1650 Last data filed at 08/10/2025 0900 Gross per 24 hour Intake 236 ml Output -- Net 236 ml Lines/Drains/Tubes: Patient Lines/Drains/Airways Status Active Airway None Output by Drain (mL) 08/08/25 0700 - 08/08/25 1859 08/08/25 1900 - 08/09/25 0659 08/09/25 0700 - 08/09/25 1859 08/09/25 1900 - 08/10/25 0659 08/10/25 0700 - 08/10/25 1650 Patient has no LDAs of requested type attached. Labs in last 18 hours: CBC WBC ?? Hb ?? Plt ?? Hct ?? ANC ?? INR ??, PTT ??, Anti-Xa ?? MCV ?? BMP Na ?? Cl ?? BUN ?? Glu ?? K ?? Co2 ?? Cr ?? Ca ?? iCa ?? Mg 1.9, Phos 3.4 Lactate ?? LFT AST ?? AlkPhos ?? T Prot ?? ALK ?? Bili ?? Alb ?? D.Bili ?? Lab Trends: H/H Results from last 7 days Lab Units 08/09/25 0230 08/08/25 0115 08/07/25 0642 HEMOGLOBIN g/dL 14.4 13.4* 14.3 HEMATOCRIT % 43.0 39.8* 41.2 INR Results from last 7 days Lab Units 08/07/25 0642 INR 1.1 Cr Results from last 7 days Lab Units 08/09/25 0230 08/08/25 0115 08/07/25 0642 CREATININE mg/dL 1.18 1.45* 1.04 Lactate No lab exists for component: LACTTEVEN Imaging: === 08/07/25 === MR FOOT LEFT W AND WO IV CONTRAST - Narrative - CLINICAL INDICATION: to assess for underlying osteomyelitis vs necrotizing infection TECHNIQUE: Multiplanar multiecho sequences were obtained utilizing T1 and T2 weighting with and without the administration of intravenous contrast. 17.5 mL of Dotarem was administered. COMPARISON: None. FINDINGS: Evaluation is somewhat limited by inhomogeneous fat saturation overlying the digits. Bone and Bone Marrow: Edema-like marrow signal change in the middle and proximal phalanx of the fourth digit with no definitive enhancement. There is subtle irregularity of the cortex of the middle phalanx. Increased signal within the third and fifth digits is favored to be secondary to an homogeneous fat saturation. Soft Tissues: Ulceration overlying the plantar lateral aspect of the fourth digit which extends to the proximal interphalangeal joint. Edema and enhancement is noted throughout the fourth digit extending to the dorsal lateral aspect of the forefoot. There is fluid signal extending dorsally from theproximal interphalangeal joint could represent effusion. Edema throughout the plantar musculature of the foot with no associated enhancement may represent denervation myositis. The flexor and extensors appear grossly intact. No discrete organized fluid collection. - Impression - Evaluation is somewhat limited by inhomogeneous fat saturation overlying the digits. Ulceration along the plantar lateral aspect of the fourth digit appears to extend to the proximal interphalangeal joint. There is further effusion of the joint space could represent associated septicjoint. Further edema and enhancement throughout the fourth digit likely represents a component of ce llulitis. Evaluation of marrow signal is somewhat limited by inhomogeneous fat saturation, within these limits there is mild edema-like marrow signal change along the proximal interphalangeal joint of the fourth digit however no significant enhancement. This could be potentially reactive however given concern for septic joint follow-up could be consider to exclude early infection. Further edema extending into the dorsal lateral aspect of the forefoot could represent further cellulitis. CRITICAL RESULT: No. COMMUNICATION: Per this written report. Drafted by James Bianchi on 08/09/2025 8:09 AM Final report signed by James Bianchi on 08/09/2025 8:22 AM Radiographic Interpretation: I have reviewed the imaging above and agree with the radiologist interpretation. Medications reviewed. Vital signs reviewed. Labs reviewed. Assessment/Plan Assessment and Plan: Hi Goode is a 60 y.o. male with PMHx of DM on insulin who presents from an OSH with puncturewound to left 4th toe after stepping on glass. EGS last evaluated the patient on 08/07. There was concerns about the appearance of the wound and possibly needing debridement. On evaluation there doesnot appear any purulent drainage from the wound. Wound base overall appears healthy. The wound doestrack quite deep. There is some erythema on the dorsal aspect of the foot. Overall do not think thewound requires additional debridement. EGS does not typically comment on findings of septic joint. Would recommend orthopedic surgery consult regarding this finding if there is clinical concern. Plan: - Wound reassessed today, do not feel wound requires debridement - If concern for MRI finding of PIP septic joint, would recommend ortho consult - Continue local wound care Edited by: Raymond Morris MD at 08/10/2025 6390 Dispo: The [facility] team is available for questions or concerns Ralph Morris MD General Surgery, PGY 2 Pager: [phone] Cosigned by Carli Murrell MD at 08/16/2025 7:16 PM EST Associated attestation - Carli Murrell MD - 08/16/2025 7:16 PM EST I discussed the case with the resident/fellow and agree with the findings and plan as documented. * Care Plan - Torsten Grande RN - 08/10/2025 3:40 PM EST Problem: Adult Inpatient Plan of Care Goal: Plan of Care Review Outcome: Ongoing, Progressing Flowsheets (Taken 08/10/2025 153) Progress: improving Outcome Evaluation: POCV is reviewed and pt verbalized understanding. Plan of Care Reviewed With: patient Goal: Patient-Specific Goal (Individualized) Outcome: Ongoing, Progressing Flowsheets (Taken 08/10/2025 0900 by Elizabeth Ring RN) Patient/Family-Specific Goals (Include Timeframe): pt will be free of falls and injury this shift. Individualized Care Needs: safety Anxieties, Fears or Concerns: none Goal: Absence of Hospital-Acquired Illness or Injury Outcome: Ongoing, Progressing Intervention: Prevent Skin Injury Flowsheets (Taken 08/10/2025 1400) Skin Protection: protective footwear used Intervention: Prevent and Manage VTE (Venous Thromboembolism) Risk Flowsheets (Taken 08/10/2025 153) VTE Prevention/Management: education provided medication Intervention: Prevent Infection Flowsheets (Taken 08/10/20251536) Infection Prevention: environmental surveillance performed equipment surfaces disinfected hand hygiene promoted single patient room provided rest/sleep promoted personal protective equipment utilized Goal: Optimal Comfort and Wellbeing Outcome: Ongoing, Progressing Intervention: Monitor Pain and Promote Comfort Flowsheets (Taken 08/10/20251536) Pain Management Interventions: rest Intervention: Provide Person-Centered Care Flowsheets (Taken 08/10/2025 153) Trust Relationship/Rapport: care explained choices provided emotional support provided empathic listening provided questions answered thoughts/feelings acknowledged reassurance provided questions encouraged Problem: Pain Acute Goal: Optimal Pain Control and Function Outcome: Ongoing, Progressing Intervention: Optimize Psychosocial Wellbeing Flowsheets (Taken 08/10/2025 153) Supportive Measures: active listening utilized relaxation techniques promoted verbalization of feelings encouraged Diversional Activities: smartphone tablet Spiritual Activities Assistance: affirmation provided hope instilled Intervention: Develop Pain Management Plan Flowsheets (Taken 08/10/20251536) Pain Management Interventions: rest Intervention: Prevent or Manage Pain Flowsheets (Taken 08/10/2025 153) Sensory Stimulation Regulation: quiet environment promoted Complementary Therapy: other (see comments) Bowel Elimination Promotion: adequate fluid intake promoted ambulation promoted Sleep/Rest Enhancement: relaxation techniques promoted consistent schedule promoted Medication Review/Management: medications reviewed dosing adjusted Problem: Skin or Soft Tissue Infection Goal: Absence of Infection Signs and Symptoms Outcome: Ongoing, Progressing Intervention: Minimize and Manage Infection Progression Flowsheets (Taken 08/10/2025 1535) Infection Management: aseptic technique maintained cultures obtained and sent to lab Fever Reduction/Comfort Measures: lightweight bedding lightweight clothing Infection Prevention: environmental surveillance performed equipment surfaces disinfected hand hygiene promoted single patient room provided rest/sleep promoted personal protective equipment utilized Isolation Precautions: precautions maintained protective Note: Pt is on IV antibiotic and wound care done as per order under sterile technique. Intervention: Provide Meticulous Infection Site Care Flowsheets (Taken 08/10/2025 1530) Topical Inflammation Care: other (see comments) Note: Wound care with normal saline and betadine paint as per order under sterile technique. * Progress Notes - Uche Fonseca MD - 08/10/2025 2:44 PM EST Subjective No events overnight. Seen in his room on rounds. No new complaints. Denies fever, SOA, CP, N/V Review of Systems Objective Vitals Temp: [36.3 ??C (97.3 ??F)-37 ??C (98.6 ??F)] 36.9 ??C (98.4 ??F) Heart Rate: [54-68] 61 Resp: [16] 16 BP: (99-134)/(62-79) 117/77 Physical Exam Constitutional: General: He is not in acute distress. Appearance: He is well-developed. He is not diaphoretic. HENT: Head: Normocephalic and atraumatic. Nose: Nose normal. Mouth/Throat: Comments: Normal oral and pharyngeal mucosa Cardiovascular: Rate and Rhythm: Normal rate and regular rhythm. Heart sounds: Normal heart sounds. Pulmonary: Effort: Pulmonary effort is normal. Breath sounds: Normal breath sounds. Abdominal: General: Bowel sounds are normal. Palpations: Abdomen is soft. Tenderness: There is no abdominal tenderness. Skin: General: Skin is warm and dry. Neurological: Mental Status: He is alert. Assessment & Plan Cellulitis and abscess of toe of left foot Insulin dependent type 2 diabetes mellitus Essential (primary) hypertension Hyperlipidemia, mixed Major depressive disorder Osteoarthritis 4th Toe LLE Cellulitis with puncture wound and foci of gas on CT Pt has a h/o IDDM with a high Hgb A1c 9.5 At increased risk for complicated infections Septic Joint. Effusion of th joint space of the 4th digit noted on MRI Also foci of gas --> MRI r/o necrotizing infection and osteomyelitis ID consulted on 08/08/25 we appreciate their recommendations Pt continues on Vancomycin and Zosyn Plan: Continue on Vancomycin and Zosyn Await recommendations from ID given updated info CRP 178-> 91.2 Improving Blood cx NGTD x 3 days MR showed possible involvement of left 4th PIP joint. ID rec'd to re consult surgery : Question need for debridement. Contacted [facility] and they said they would see him today. IDDM Type II Last Hgb A1c 9.5 Continue to hold home Glipizide Increased Lantus to 20 U BID on 08/09 BG - improved a bit. Plan: Lantus 20 u BID With high dose sliding scale and more frequent FS until BG <180 mg /fl Goal BG 140-180 mg/dl Daily CMP. HTN ( essential) BP controlled At home he is on Lisinopril hydrochlorothiazide combo 20/12.5mg 2 tabs by mouth daily Plan: Hydrochlorothiazide 25mg PO daily Lisinopril 40mg PO OD WU resolving Cr on 08/08 1.45-> 1.18 Continue to monitor Avoid nephrotoxins as able. Repeat BMP in AM Chronic Medical conditions: HLD Atorvastatin 40 mg MDD (Major Depressive Disorder) Continue on Wellbutrin 150 mg daily Vit D deficiency On Vit D replacement Vitamin D level : 78.2 (08/10/25) BPH On Proscar 5 mg daily Monitor UOP Notify MD of hematuria or no UOP for 6 hrs Medically Ready for Discharge:Anticipated in 2-4 Days * Query Clarification Note - Uche Fonseca MD - 08/10/2025 2:44 PM EST Physician Clarification Please review the following and provide your response below. Please review and clarify clinical significance of findings with associated diagnosis: -[x] Hyponatremia -[] other (please specify) * Progress Notes - Anne Downs MBBS - 08/10/2025 12:36 PM EST BONE AND JOINT INFECTIOUS DISEASE PROGRESS NOTE Attending: Uche Fonseca MD Subjective: Middle aged man lying in bed with no new complaints, no fever, no chills, his left foot is bandagedclean and dry Objective: Visit Vitals BP 117/77 (BP Location: Right arm, Patient Position: Lying) Pulse 61 Temp 36.9 ??C (98.4 ??F) (Oral) Resp 16 Ht 1.702 m (5' 7 ) Wt 80.1 kg (176 lb 9.4 oz) SpO2 92% BMI 27.66 kg/m?? Smoking Status Never BSA 1.95 m?? Physical exam: GEN: alert, no acute distress HEAD: Normocephalic, atraumatic EYES: EOMI, no scleral icterus ENT: normal hearing, OP clear, moist mucosa CHEST: within normal limits, no indwelling devices PULM: CTA bilaterally, good air movement CV: normal rate, regular rhythm, no murmur appreciated ABD: soft, nontender, nondistended, no palpable masses CHRISTIE: MUSCLE atrophy noticed in both feet, left foot bandaged clean and dry SKIN: warm, dry, no rashes PSYCH: cooperative, appropriate affect Labs: CBC WBC ?? Hb ?? Plt ?? Hct ?? ANC ?? BMP Na ?? Cl ?? BUN ?? Glu ?? K ?? Co2 ?? Cr ?? Mg 1.9, Phos 3.4 LFT AST ?? AlkPhos ?? T Prot ?? ALK ?? Bili ?? Alb ?? D.Bili ?? Results from last 7 days Lab Units 08/09/25 0230 08/07/25 0642 CRP mg/L 91.2* 178.0* Results from last 7 days Lab Units 08/07/25 0642 SED RATE mm/hr 28* Medications: Current Medications[1] Imaging/Studies: MR Foot Left w and wo IV Contrast Narrative: CLINICAL INDICATION: to assess for underlying osteomyelitis vs necrotizing infection TECHNIQUE: Multiplanar multiecho sequences were obtained utilizing T1 and T2 weighting with and without the administration of intravenous contrast. 17.5 mL of Dotarem was administered. COMPARISON: None. FINDINGS: Evaluation is somewhat limited by inhomogeneous fat saturation overlying the digits. Bone and Bone Marrow: Edema-like marrow signal change in the middle and proximal phalanx of the fourth digit with no definitive enhancement. There is subtle irregularity of the cortex of the middle phalanx. Increased signal within the third and fifth digits is favored to be secondary to an homogeneous fat saturation. Soft Tissues: Ulceration overlying the plantar lateral aspect of the fourth digit which extends to the proximal interphalangeal joint. Edema and enhancement is noted throughout the fourth digit extending to the dorsal lateral aspect of the forefoot. There is fluid signal extending dorsally from theproximal interphalangeal joint could represent effusion. Edema throughout the plantar musculature of the foot with no associated enhancement may represent denervation myositis. The flexor and extensors appear grossly intact. No discrete organized fluid collection. Impression: Evaluation is somewhat limited by inhomogeneous fat saturation overlying the digits. Ulceration along the plantar lateral aspect of the fourth digit appears to extend to the proximal interphalangeal joint. There is further effusion of the joint space could represent associated septicjoint. Further edema and enhancement throughout the fourth digit likely represents a component of ce llulitis. Evaluation of marrow signal is somewhat limited by inhomogeneous fat saturation, within these limits there is mild edema-like marrow signal change along the proximal interphalangeal joint of the fourth digit however no significant enhancement. This could be potentially reactive however given concern for septic joint follow-up could be consider to exclude early infection. Further edema extending into the dorsal lateral aspect of the forefoot could represent further cellulitis. CRITICAL RESULT: No. COMMUNICATION: Per this written report. Drafted by James Bianchi on 08/09/2025 8:09 AM Final report signed by James Bianchi on 08/09/2025 8:22 AM Micro: 08/07/25: Blood culture: no growth at day 3 08/07/2025 HIV fay negative 08/07/2025 HCV fay negative Antibiotics: Vancomycin:08/08/25-present Zosyn:08/07/25-present Assessment: Hi Goode is a 60 y.o. male with history of insulin-dependent T2DM, HTN, and HLD who presented to [facility] on 08/07/25 as a transfer from [facility] with a left 4th toe puncture wound of two days duration. 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 Pt reports he removed nail andcleaned wound. He developed pain/swelling of L 4th toe 08/06/2025 and seen at [facility] where he was given Levofloxacin and Clindamycin, tetanus booster. CT done at OSH reportedly showed small focus of gas in toe and he was transferred to 08/07/2025 . Pt seen by Gen Surgery who recommended medical management. MRI L foot(08/09/25) showed possible LEFT PIP septic arthritis. ID team were consulted to provide recommendations on antibiotics and further workup for puncture wound. Today, he has no new complaints, no fever and says pain has completely subsided in the left foot. His WBC(08/08) is normal. Blood culture(08/07) has no growth at day 3. He is currently on vancomycin and zosyn. 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 He will benefit from a surgical review for debridement of the lesion and samples sent forgram stain, mycobacteria stain and culture, aerobic and anaerobic culture, fungal stains and cultures. If a complete debridement is done he will be on antibiotics for 5-7 days, but if this is not possible, he will be on IV antibiotics for 4-6 weeks. 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 ID Problem List: -Diabetic foot infection -Septic arthritis of left 4th toe -T2DM which complicates management Recommendations: - He will benefit from surgery review because if he gets a debridement, antibiotic duration will befor 5-7 days but if the option is medical management , he will get IV antibiotics for 4-6 weeks -Patient needs OPAT -He should continue with vancomycin -We recommend stopping zosyn and starting meropenem -If he remains in-patient, he should have weekly CBC,Creatinine and BUN done -He should have vancomycin trough done every Saturday [facility] JOINT ID will continue to follow. Anne Downs MD Infectious Disease Fellow PGY-4 [1] Current Facility-Administered Medications Medication Dose Route Frequency Provider Last Rate Last Admin acetaminophen (Tylenol) tablet 1,000 mg 1,000 mg Oral q6h PRN Mery Garcia PA 1,000 mg at 08/09/251950 atorvastatin (Lipitor) tablet 40 mg 40 mg Oral Nightly Mery Garcia PA 40 mg at 08/09/252014 buPROPion SR (Wellbutrin SR) 12 hr tablet 150 mg 150 mg Oral Daily Mery Garcia PA 150 mg at 08/10/25 0836 cholecalciferol (Vitamin D-3) tablet 1,000 Units 1,000 Units Oral Daily Mery Garcia PA1,000 Units at 08/10/25 0836 glucose (Glutose) 40 % oral gel 15-30 grams of glucose 15-30 grams of glucose Sublingual q15 min PRN Mery Garcia PA Or dextrose 10 % (D10W) bolus 125 mL 125 mL Intravenous q15 min PRN Mery Garcia PA Or dextrose 10 % (D10W) bolus 250 mL 250 mL Intravenous q15 min PRN Mery Garcia PA Or glucagon (human recombinant) injection 1 mg 1 mg Intramuscular q15 min PRN Mery Garcia PA docusate sodium (Colace) capsule 250 mg 250 mg Oral Daily Fabienne Palm MD 250 mg at 08/10/25 0830 finasteride (Proscar) tablet 5 mg 5 mg Oral Daily Mery Garcia PA 5 mg at 08/10/25 0836 hydroCHLOROthiazide (HYDRODiuril) tablet 25 mg 25 mg Oral Daily Mery Garcia PA 25 mg at 08/10/25 0836 ibuprofen tablet 400 mg 400 mg Oral q6h PRN Mery Garcia PA insulin glargine-yfgn 100 UNIT/ML injection 20 Units 20 Units Subcutaneous BID Fabienne Palm MD 20 Units at 08/10/25 0830 insulin lispro (Admelog) 100 units/mL injection - Correction - Resistant Dose 0- 10 Units Subcutaneous TID with meals Fabienne Palm MD 8 Units at 08/10/25 1141 insulin lispro (Admelog) injection - Correction - Nighttime Dose 0-3 Units Subcutaneous Twice at night Fabienne Palm MD 1 Units at 08/09/25 2118 Insulin Lispro (Admelog, HumaLOG) 100 UNIT/ML injection 5 Units 5 Units Subcutaneous TID with mealsMery Garcia PA 5 Units at 08/10/25 1140 lisinopril tablet 40 mg 40 mg Oral Daily Mery Garcia PA 40 mg at 08/10/25 0830 melatonin tablet 3 mg 3 mg Oral Nightly PRN Mery Garcia PA multivitamin (Theragran-M) tablet 1 tablet 1 tablet Oral Daily Mery Garcia PA 1 tabletat 08/10/25 0836 piperacillin-tazobactam (Zosyn) 3.375 g in sodium chloride 0.9% 100 mL IVPB (vial adapter required)3.375 g Intravenous q6h Mery Garcia PA 36.7 mL/hr at 08/10/25 0830 3.375 g at 830 polyethylene glycol (Miralax) packet 17 g 17 g Oral Daily Fabienne Palm MD 17 g at 830 sodium chloride 0.9 % flush 10 mL 10 mL Intravenous q12h Mery Garcia PA 10 mL at 08/10/25 0147 And sodium chloride 0.9 % flush 10 mL 10 mL Intravenous PRN Mery Garcia PA vancomycin (Vancocin) 1,250 mg in sodium chloride 0.9% 250 mL IVPB (vial adapter required) 1,250 mgIntravenous q12h Fabienne Palm MD 220 mL/hr at 08/10/25 0556 1,250 mg at 08/10/25 0556 Cosigned by Lonny Dunne MD at 08/10/2025 4:37 PM EST Associated attestation - Lonny Dunne MD - 08/10/2025 4:37 PM EST I saw and evaluated the patient with the resident/fellow. I discussed the case with the resident/fellow and agree with the findings and plan as documented. Erythema of patient's LEFT lateral foot looks worse today despite Vanco and Zosyn. Recommend switchto Vanco + Meropenem. 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 Also has cats at home, potential for cat litter on floors.) Recommend surgical reeval given MRI findings of septic arthritis of toe. Final abx recs to follow. Duration and regimen TBD. If we pursue toe salvaging approach, then wouldneed at least 4 weeks of high-dose abx therapy * Care Plan - Yobany Carr RN - 08/10/2025 5:38 AM EST Problem: Adult Inpatient Plan of Care Goal: Plan of Care Review Outcome: Ongoing, Progressing Flowsheets (Taken 08/10/2025 05) Progress: improving Outcome Evaluation: POC reviewed with patient - patient acknowledged no acute changes to report will continue POC Plan of Care Reviewed With: patient Goal: Patient-Specific Goal (Individualized) Outcome: Ongoing, Progressing Goal: Absence of Hospital-Acquired Illness or Injury Outcome: Ongoing, Progressing Intervention: Identify and Manage Fall Risk Flowsheets (Taken 08/10/2025 0400) Safety Promotion/Fall Prevention: activity supervised assistive device/personal items within reach clutter-free environment maintained nonskid shoes/slippers when out of bed room organization consistent safety round/check completed Intervention: Prevent Skin Injury Flowsheets (Taken 08/10/2025 0537) Body Position: weight shifting Skin Protection: transparent dressing maintained Intervention: Prevent and Manage VTE (Venous Thromboembolism) Risk Flowsheets (Taken 08/10/2025 0537) VTE Prevention/Management: education provided Intervention: Prevent Infection Flowsheets (Taken 08/10/2025536) Infection Prevention: cohorting utilized personal protective equipment utilized environmental surveillance performed rest/sleep promoted single patient room provided hand hygiene promoted Goal: Optimal Comfort and Wellbeing Outcome: Ongoing, Progressing Intervention: Monitor Pain and Promote Comfort Flowsheets (Taken 08/10/2025536) Pain Management Interventions: medication (see MAR) Intervention: Provide Person-Centered Care Flowsheets (Taken 08/10/2025536) Trust Relationship/Rapport: care explained questions encouraged choices provided reassurance provided thoughts/feelings acknowledged empathic listening provided questions answered Problem: Pain Acute Goal: Optimal Pain Control and Function Outcome: Ongoing, Progressing Intervention: Optimize Psychosocial Wellbeing Flowsheets (Taken 08/10/2025536) Supportive Measures: active listening utilized Diversional Activities: smartphone television Spiritual Activities Assistance: affirmation provided Intervention: Develop Pain Management Plan Flowsheets (Taken 08/10/2025536) Pain Management Interventions: medication (see MAR) Intervention: Prevent or Manage Pain Flowsheets (Taken 08/10/2025536) Sensory Stimulation Regulation: care clustered Complementary Therapy: other (see comments) Bowel Elimination Promotion: adequate fluid intake promoted ambulation promoted Sleep/Rest Enhancement: awakenings minimized Medication Review/Management: medications reviewed * Progress Notes - Lonny Dunne MD - 08/09/2025 5:45 PM EST LATE ENTRY Infectious Disease Bone And Joint Consult Team - Followup, Attending Note S: AMOR. LEFT foot pain improved. Tolerating abx. ROS: Positive as above. Otherwise, 14 systems reviewed and negative. MEDS: ABX: Vancomycin 08/07/2025 - current Zosyn 08/07/2025 - current OTHERS: For full list, see MAR. [Current Medications] [Current Medications] Current Facility-Administered Medications: acetaminophen (Tylenol) tablet 1,000 mg, 1,000 mg, Oral, q6h PRN, Mery Garcia PA, 1,000 mg at 08/07/25 1613 atorvastatin (Lipitor) tablet 40 mg, 40 mg, Oral, Nightly, Mery Garcia PA, 40 mg at 08/08/252007 buPROPion SR (Wellbutrin SR) 12 hr tablet 150 mg, 150 mg, Oral, Daily, Mery Garcia PA,150 mg at 08/09/25916 cholecalciferol (Vitamin D-3) tablet 1,000 Units, 1,000 Units, Oral, Daily, Mery Garcia PA, 1,000 Units at 08/09/25916 glucose (Glutose) 40 % oral gel 15-30 grams of glucose, 15-30 grams of glucose, Sublingual, q15 minPRN OR dextrose 10 % (D10W) bolus 125 mL, 125 mL, Intravenous, q15 min PRN OR dextrose 10 %(D10W) bolus 250 mL, 250 mL, Intravenous, q15 min PRN OR glucagon (human recombinant) injection1 mg, 1 mg, Intramuscular, q15 min PRN, Mery Garcia PA docusate sodium (Colace) capsule 250 mg, 250 mg, Oral, Daily, Fabienne Palm MD, 250 mg at 08/09/25916 finasteride (Proscar) tablet 5 mg, 5 mg, Oral, Daily, Mery Garcia PA, 5 mg at hydroCHLOROthiazide (HYDRODiuril) tablet 25 mg, 25 mg, Oral, Daily, Mery Garcia PA, 25mg at 08/09/25916 ibuprofen tablet 400 mg, 400 mg, Oral, q6h PRN, Mery Garcia PA insulin glargine-yfgn 100 UNIT/ML injection 15 Units, 15 Units, Subcutaneous, BID, Fabienne Palm MD, 15 Units at 08/09/25 09 insulin lispro (Admelog) 100 units/mL injection - Correction - Resistant Dose, 0-10 Units, Subcutaneous, TID with meals, Fabienne Palm MD, 10 Units at 08/09/25 1245 insulin lispro (Admelog) injection - Correction - Nighttime Dose, 0-3 Units, Subcutaneous, Twice atnight, Fabienne Palm MD, 1 Units at 08/08/252038 Insulin Lispro (Admelog, HumaLOG) 100 UNIT/ML injection 5 Units, 5 Units, Subcutaneous, TID with meals, Mery Garcia PA, 5 Units at 08/09/251244 lisinopril tablet 40 mg, 40 mg, Oral, Daily, Mery Garcia PA, 40 mg at 08/09/25916 melatonin tablet 3 mg, 3 mg, Oral, Nightly PRN, Mery Garcia PA multivitamin (Theragran-M) tablet 1 tablet, 1 tablet, Oral, Daily, Mery Garcia PA, 1 tablet at 08/09/25916 piperacillin-tazobactam (Zosyn) 3.375 g in sodium chloride 0.9% 100 mL IVPB (vial adapter required), 3.375 g, Intravenous, q6h, Mery Garcia PA, Last Rate: 36.7 mL/hr at 08/09/25 1246, 3.375 g at 08/09/251245 polyethylene glycol (Miralax) packet 17 g, 17 g, Oral, Daily, Fabienne Palm MD, 17 g at 08/09/25916 [COMPLETED] Insert peripheral IV, , , Once AND [COMPLETED] Saline lock IV, , , Once AND sodium chloride 0.9 % flush 10 mL, 10 mL, Intravenous, q12h, 10 mL at 08/09/256 AND sodium chloride 0.9 % flush 10 mL, 10 mL, Intravenous, PRN, Mery Garcia PA vancomycin (Vancocin) 1,250 mg in sodium chloride 0.9% 250 mL IVPB (vial adapter required), 1,250 mg, Intravenous, q12h, Fabienne Palm MD O: Visit Vitals BP 103/69 (BP Location: Right arm, Patient Position: Lying) Pulse 69 Temp 36.8 ??C (98.2 ??F) (Oral) Resp 17 Ht 1.702 m (5' 7 ) Wt 80.1 kg (176 lb 9.4 oz) SpO2 96% BMI 27.66 kg/m?? Smoking Status Never BSA 1.95 m?? GEN: NAD. HEENT: MMM. Neck: Supple. CARDIAC: RRR, no m/r/g RESPIRATORY: CTAB, no w/r/r ABD: Soft, NT, ND. +BS. Back: No gross deformity EXT: LEFT foot -- angry erythema to lateral foot (improved vs. admit pics); puncture wound over medial LEFT 4th PIP with necrotic tissue. DP 1+ Skin: WNL. No rashes. Neuro: Intact PSYCH: Appropriate. LINES: LABS: LABS REVIEWED Labs in last 18 hours CBC WBC 8.34 Hb 14.4 Plt 159 Hct 43.0 ANC 6.04 INR ??, PTT ??, Anti-Xa ?? BMP Na 133 (L) Cl 99 BUN 22 (H) Glu 226 (H) K 4.5 Co2 24 Cr 1.18 Ca 9.9 iCa ?? Mg 1.8 (L), Phos 3.2 Lactate ?? LFT AST 29 AlkPhos 75 T Prot 7.1 ALK 37 Bili 0.4 Alb ?? D.Bili ?? Hemoglobin A1C Latest Ref Rng <5.7 % 08/07/2025 9.5 (H) CRP, Plasma Latest Ref Rng <=8.0 mg/L 08/07/2025 178.0 (H) 08/09/2025 91.2 (H) Legend: (H) High MICRO: MICRO REVIEWED. FOR ALL STUDIES, SEE EHR 08/07/2025 BLD - NGTD 08/07/2025 HIV fay negative 08/07/2025 HCV fay negative STUDIES: STUDIES REVIEWED. FOR ALL STUDIES, SEE EHR 08/09/2025 MRI L foot W contrast - IMPRESSION: Evaluation is somewhat limited by inhomogeneous fat saturation overlying the digits. Ulceration along the plantar lateral aspect of the fourth digit appears to extend to the proximal interphalangeal joint. There is further effusion of the joint space could represent associated septicjoint. Further edema and enhancement throughout the fourth digit likely represents a component of ce llulitis. Evaluation of marrow signal is somewhat limited by inhomogeneous fat saturation, within these limits there is mild edema-like marrow signal change along the proximal interphalangeal joint of the fourth digit however no significant enhancement. This could be potentially reactive however given concern for septic joint follow-up could be consider to exclude early infection. Further edema extending into the dorsal lateral aspect of the forefoot could represent further cellulitis. IMPRESSION: 60yoM, LEFT foot DFI, L 4th toe septic PIP arthritis. Pt with MMP including DM; peripheral neuropathy. 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 Pt reports he removed nail and cleaned wound. Pt developedpain/swelling of L 4th toe 08/06/2025 and seen at [facility]. Pt rx'ed on Levofloxacin and Clindamycin, tetanus booster --> CT reportedly showed small focus of gas in toe --> transferredto and admitted 08/07/2025 - current. Pt seen by Gen Surgery --> recommended medical management. 08/09/2025 MRI L foot showed possible LEFT PIP septic arthritis. SUBSTANCE ABUSE: Illicit: Denies Tobacco: Denies ETOH: Denies DRUG ALLERGIES: Codeine RECOMMENDATIONS: Re: LEFT foot DFI, L 4th toe septic PIP arthritis: Recommend reconsulting surgery re: MRI findings to see if there is role for surgical debridement ofseptic arthritis of LEFT 4th PIP. If pt has debridement, please send deep tissue/bone samples for Histology; gram stain; aerobic/anaerobic bacterial cultures; Mycobacterial (AFB) stains and cultures; Fungal stains and cultures. Re: antibiotics: For now, while inpatient at [facility], pending the above: Continue empiric, broad spectrum antibiotic therapy. Vancomycin IV as empiric gram-positive coverage. (Dose per Pharmacy) Zosyn IV - renally dose to equivalent of 4.5g IV q6h -- as empiric coverage for Further abx recs to follow If pt has definitive toe amputation, then should only need 5-7 days of abx. If toe salvaging approach attempted, then likely 4 weeks of high-dose abx (may have to be IV-based) While on High Dose/Induction abx therapy, will need regular blood work to monitor for adverse drug events, response to therapy, drug levels: EVERY SATURDAY: CBCP/D, BUN, Creatinine (not BMP), CRP (regular quantitative CRP, not the high-sensitivity/cardiac CRP) EVERY SATURDAY: Vancomycin trough if patient is on vancomycin IV. EVERY SATURDAY: LFTs, CK if patient is on Daptomycin IV. ID Bone and Joint Consult Service will follow while inhouse. (If patient does leave AMA, then they will need to find another ID specialist to manage their care.) The following complex inpatient infectious disease services were performed today: Complex antimicrobial therapy counseling and treatment * Progress Notes - Amisha Chang RN - 08/09/2025 2:43 PM EST Case Management Adult Initial Progress Note Hi Goode 60 y.o. male CSN: [id number] Admission: 08/07/2025 5:18 AM Primary Problem: Cellulitis and abscess of toe of left foot Prism Inspector reviewed chart and spoke with patient at bedside to complete this Initial Case Management Assessment. PCP: Iraida Reese APRN Emergency Contact: No emergency contact information on file. Insurance: Primary Visit Coverage Payer Plan Sponsor Code Group Number Group Name [employer]ICA[employer] MOL[place] [employer]ICAID Primary Visit Coverage Subscriber Subscriber ID Subscriber Name Subscriber SSN Subscriber Address [id number] Hi Goode W [id number] [place] [address] Patient information: Primary Caregiver: Self Support System: Immediate family Daily Living Activities: Functional Status: Independent Living Arrangements: Spouse/Significant other Type of Residence: Private residence, Multi Level ([address]) [address] [place] [address] Smoker in the Home?: No Current DME: Equipment Currently Used at Home: none Income Information: Income Source: Employed Income/Expense Information: Expenses exceed income Current Resources Utilized: None Housing Circumstances-Z Codes: Housing Circumstances (select all that apply): Low Income (101-300% Federal Poverty Guidlines) - Z596 Patient Referred to: None at this time Anticipated Discharge Date: TBD Patient's Discharge Goal: Patient/Family Anticipates Transition to: home Assistance Available at Discharge: Availability of Care Givers (#Hours): No assistance needed Discharge Transport: Transportation Anticipated: family or friend will provide Follow Up Transport: Transportation Needed to Follow up Appoinments: Self, Family/Friend will Provide Home Health / Home Infusion / Outpatient Dialysis Services: None Living Will/Advance Directive/Power of Torch Straightener /Guardian: Advance Directive: Patient does not have advance directive, Patient would not like information Information Provided on Healthcare Directives: No Pre-existing DNR/DNI Order: No Patient Requests Assistance: No Additional Comments: Patient admitted after stepping on a nail two days ago. ID consulted. Surgery consulted. Patient on IV abx. RNCM will continue to monitor for further discharge needs. Amisha Chang RN * Care Plan - Mckenzie Ashford RN - 08/09/2025 10:57 AM EST Problem: Adult Inpatient Plan of Care Goal: Plan of Care Review Flowsheets Taken 08/09/2025 1056 by Mckenzie Ashford RN Progress: no change Taken 08/08/20252210 by Maximo Escamilla RN Plan of Care Reviewed With: patient Goal: Patient-Specific Goal (Individualized) Flowsheets (Taken 08/09/2025 0800) Patient/Family-Specific Goals (Include Timeframe): patient will be free of falls throughout the shift Individualized Care Needs: infection control Anxieties, Fears or Concerns: workers comp paperwork Goal: Absence of Hospital-Acquired Illness or Injury Intervention: Identify and Manage Fall Risk Flowsheets (Taken 08/09/2025 0400 by Janene Bush) Safety Promotion/Fall Prevention: activity supervised Intervention: Prevent Skin Injury Flowsheets Taken 08/09/2025 0800 by Mckenzie Ashford RN Body Position: weight shifting Taken 08/08/20252210 by Maximo Escamilla RN Skin Protection: transparent dressing maintained incontinence pads utilized Intervention: Prevent and Manage VTE (Venous Thromboembolism) Risk Flowsheets (Taken 08/09/2025 0400 by Maximo Escamilla RN) VTE Prevention/Management: SCDs (sequential compression devices) off Intervention: Prevent Infection Flowsheets (Taken 08/08/20252210 by Maximo Escamilla RN) Infection Prevention: environmental surveillance performed hand hygiene promoted single patient room provided rest/sleep promoted Goal: Optimal Comfort and Wellbeing Intervention: Monitor Pain and Promote Comfort Flowsheets (Taken 08/08/20252210 by Maximo Escamilla RN) Pain Management Interventions: pillow support provided relaxation techniques promoted rest quiet environment facilitated Intervention: Provide Person-Centered Care Flowsheets (Taken 08/08/20252210 by Maximo Escamilla RN) Trust Relationship/Rapport: care explained questions answered thoughts/feelings acknowledged questions encouraged Problem: Pain Acute Goal: Optimal Pain Control and Function Intervention: Optimize Psychosocial Wellbeing Flowsheets (Taken 08/08/20252210 by Maximo Escamilla, ORLIN) Supportive Measures: active listening utilized decision-making supported self-care encouraged relaxation techniques promoted Diversional Activities: television smartphone Spiritual Activities Assistance: affirmation provided Intervention: Develop Pain Management Plan Flowsheets (Taken 08/08/20252210 by Maximo Escamilla RN) Pain Management Interventions: pillow support provided relaxation techniques promoted rest quiet environment facilitated Intervention: Prevent or Manage Pain Flowsheets Taken 08/08/20252210 by Maximo Escamilla RN Sensory Stimulation Regulation: care clustered quiet environment promoted Bowel Elimination Promotion: ambulation promoted Sleep/Rest Enhancement: awakenings minimized relaxation techniques promoted Medication Review/Management: medications reviewed high-risk medications identified Taken 08/07/20252148 by Janie Ma RN Complementary Therapy: other (see comments) * Progress Notes - Fabienne Palm MD - 08/09/2025 10:00 AM EST Images from the original note were not included. General Medicine Inpatient Progress Note Patient: Hi Goode PCP: Iraida Reese APRN Date: 08/09/2025 Day of admission: 2 Subjective Pt seen on rounds this AM. He feels much improved and states he is able to walk around more. He denies any chills or fevers. He was on the job when he stepped on the nail. Objective INPATENT MEDICATIONS Current Medications[1] ALLERGIES Allergies[2] 24 HOUR VITALS Temp: [36.3 ??C (97.3 ??F)-37 ??C (98.6 ??F)] 37 ??C (98.6 ??F) Heart Rate: [65-69] 68 Resp: [16-17] 17 BP: (103-134)/(69-79) 134/79 INTAKE/OUTPUT No intake or output data in the 24 hours ending 08/09/251943 - GENERAL: No acute distress. Well-nourished. - EYES: EOMI. Anicteric. - HENT: Moist mucous membranes. Poor dentition. No scleral icterus. No cervical lymphadenopathy. - PULMONARY: Clear to auscultation bilaterally. Air entry appreciated to bilateral bases. No wheezing or rhonchi. No accessory muscle use. - CARDIOVASCULAR: Regular rate and rhythm. No gallop. No JVD. - ABDOMEN: Soft, non-tender and non-distended. No palpable masses. - MSK: No edema. Non-tender.slightly erythematous along the anterior tibia with old excoriations noted. No open wounds. Left lower ext wrapped during rounds. See media tender specifically at the 4th toe on LLE - SKIN: Warm, legs as described above - NEUROLOGIC: Alert and oriented x 4. No focal neurological deficits. CN II-XII grossly intact, butnot individually tested. - PSYCHIATRIC: Cooperative. Appropriate mood and affect. Review of Systems Constitutional: Negative for chills, fever and unexpected weight change. Respiratory: Negative for cough. Gastrointestinal: Positive for constipation. Musculoskeletal: Negative for myalgias. Skin: Negative for rash. Neurological: Negative for dizziness. REVIEW OF LABORATORY DATA Lab Results Component Value Date WBC 8.34 08/09/2025 HGB 14.4 08/09/2025 HCT 43.0 08/09/2025 MCV 88 08/09/2025 PLT 159 08/09/2025 Lab Results Component Value Date GLUCOSE 226 (H) 08/09/2025 CALCIUM 9.9 08/09/2025 NA 133 (L) 08/09/2025 K 4.5 08/09/2025 CO2 24 08/09/2025 CL 99 08/09/2025 BUN 22 (H) 08/09/2025 CREATININE 1.18 08/09/2025 Lab Results Component Value Date ALT 37 08/09/2025 AST 29 08/09/2025 ALKPHOS 75 08/09/2025 BILITOT 0.4 08/09/2025 Lab Results Component Value Date INR 1.1 08/07/2025 REVIEW OF IMAGING STUDIES: CT of left lower extremity at OSH showed subtle rounded ovioid lucency measuring approx 3.7mm involving the 4th middle phalynx suspicious for area of bony erosion/osteomyelitis. Soft tissue thickening and heterogeneity involving the soft tissues of the 4th digit suggesting edema. A few small linearand rounded lucencies involving the slightly more proximal soft tissues of the 4th digit suggest tiny areas of subcutaneous emphysema. REVIEW OF PROCEDURES none Assessment and Plan: 4th Toe LLE Cellulitis with puncture wound and foci of gas on CT Pt has a h/o IDDM with a high Hgb A1c 9.5 At increased risk for complicated infections Septic Joint. Effusion of th joint space of the 4th digit noted on MRI Also foci of gas --> MRI r/o necrotizing infection and osteomyelitis ID consulted on 08/08/25 we appreciate their recommendations Pt continues on Vancomycin and Zosyn Plan: Continue on Vancomycin and Zosyn Await recommendations from ID given updated info CRP 178-> 91.2 Improving Blood cx NGTD x 2 days IDDM Type II Last Hgb A1c 9.5 Continue to hold home Glipizide Increased Lantus to 15 U BID on 08/08 BG still uncontrolled Plan: Lantus 20 u BID With high dose sliding scale and more frequent FS until BG <180 mg /fl Goal BG 140-180 mg/dl Daily CMP. HTN ( essential) BP controlled At home he is on Lisinopril hydrochlorothiazide combo 20/12.5mg 2 tabs by mouth daily Plan: Hydrochlorothiazide 25mg PO daily Lisinopril 40mg PO OD WU resolving Cr on 08/08 1.45-> 1.18 Continue to monitor Avoid nephrotoxins when possible Kidney fn also impacted by pt's Diabetes Chronic Medical conditions: HLD Atorvastatin 40 mg MDD (Major Depressive Disorder) Continue on Wellbutrin 150 mg daily Vit D deficiency On Vit D replacement Vitamin D level to f/u in AM BPH On Proscar 5 mg daily Monitor UOP Notify MD of hematuria or no UOP for 6 hrs Inpatient Checklist: Inpatient checklist: - Antimicrobial de-escalation: not at this time. Awaiting MRI w/ IV contrast - Bowel regimen: Last BM pt has a h/o chronic constipation - Call family: (Pt has consented for us to update fam unless noted otherwise) - Code status: Full Code - Diet: Dietary Orders (From admission, onward) Start Ordered 08/07/25 1325 Adult diet Diet texture: Regular; Carbohydrate restriction: Consistent Carb 2 (80 gm max/meal) Diet effective now References: IDDSI Diet Texture Guide Question Answer Comment Diet texture Regular Carbohydrate restriction: Consistent Carb 2 (80 gm max/meal) 08/07/25 1332 - DVT prophylaxis: pt ambulates - Electrolytes: Replete PRN - IVF: IV Abx - Labs: CBC at least 2x weekly. 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 Will be ble to better gauge his dispo after MRI findings. CODE STATUS: Full Code EMERGENCY CONTACT: No emergency contact information on file. Fabienne Palm Hospitalist Medicine This dictation was prepared using voice recognition software. As a result, errors may occur. When identified, these errors have been corrected. While every attempt is made to correct errors during dictation, errors may still exist. All images were reviewed. All changes discussed with consultants. Outside records reviewed as applicable. Note to patient: The Century Cures Act makes medical notes like these available to patients inthe interest of transparency. However, be advised this is a medical document. It is intended as peer to peer communication. It is written in medical language and may contain abbreviations or verbiagethat are unfamiliar. It may appear blunt or direct. Medical documents are intended to carry relevant information, facts as evident, and the clinical opinion of the practitioner. [1] Current Facility-Administered Medications: acetaminophen (Tylenol) tablet 1,000 mg, 1,000 mg, Oral, q6h PRN, Mery Garcia PA, 1,000 mg at 08/07/25 161 atorvastatin (Lipitor) tablet 40 mg, 40 mg, Oral, Nightly, Mery Garcia PA, 40 mg at 08/08/252007 buPROPion SR (Wellbutrin SR) 12 hr tablet 150 mg, 150 mg, Oral, Daily, Mery Garcia PA,150 mg at 08/09/25 09 cholecalciferol (Vitamin D-3) tablet 1,000 Units, 1,000 Units, Oral, Daily, Mery Garcia PA, 1,000 Units at 08/09/25 0917 glucose (Glutose) 40 % oral gel 15-30 grams of glucose, 15-30 grams of glucose, Sublingual, q15 minPRN OR dextrose 10 % (D10W) bolus 125 mL, 125 mL, Intravenous, q15 min PRN OR dextrose 10 %(D10W) bolus 250 mL, 250 mL, Intravenous, q15 min PRN OR glucagon (human recombinant) injection1 mg, 1 mg, Intramuscular, q15 min PRN, Mery Garcia PA docusate sodium (Colace) capsule 250 mg, 250 mg, Oral, Daily, Fabienne Palm MD, 250 mg at 08/09/25916 finasteride (Proscar) tablet 5 mg, 5 mg, Oral, Daily, Mery Garcia PA, 5 mg at hydroCHLOROthiazide (HYDRODiuril) tablet 25 mg, 25 mg, Oral, Daily, Mery Garcia PA, 25mg at 08/09/25916 ibuprofen tablet 400 mg, 400 mg, Oral, q6h PRN, Mery Garcia PA insulin glargine-yfgn 100 UNIT/ML injection 15 Units, 15 Units, Subcutaneous, BID, Fabienne Palm MD, 15 Units at 08/09/25917 insulin lispro (Admelog) 100 units/mL injection - Correction - Resistant Dose, 0-10 Units, Subcutaneous, TID with meals, Fabienne Palm MD, 6 Units at 08/09/251818 insulin lispro (Admelog) injection - Correction - Nighttime Dose, 0-3 Units, Subcutaneous, Twice atnight, Fabienne Palm MD, 1 Units at 08/08/252038 Insulin Lispro (Admelog, HumaLOG) 100 UNIT/ML injection 5 Units, 5 Units, Subcutaneous, TID with meals, Mery Garcia PA, 5 Units at 08/09/251817 lisinopril tablet 40 mg, 40 mg, Oral, Daily, Mery Garcia PA, 40 mg at 08/09/25916 melatonin tablet 3 mg, 3 mg, Oral, Nightly PRN, Mery Garcia PA multivitamin (Theragran-M) tablet 1 tablet, 1 tablet, Oral, Daily, Mery Garcia PA, 1 tablet at 08/09/25 0917 piperacillin-tazobactam (Zosyn) 3.375 g in sodium chloride 0.9% 100 mL IVPB (vial adapter required), 3.375 g, Intravenous, q6h, Mery Garcia PA, Last Rate: 36.7 mL/hr at 08/09/25 1246, 3.375 g at 08/09/25 1246 polyethylene glycol (Miralax) packet 17 g, 17 g, Oral, Daily, Fabienne Palm MD, 17 g at 08/09/25 0917 [COMPLETED] Insert peripheral IV, , , Once AND [COMPLETED] Saline lock IV, , , Once AND sodium chloride 0.9 % flush 10 mL, 10 mL, Intravenous, q12h, 10 mL at 08/09/25 1246 AND sodium chloride 0.9 % flush 10 mL, 10 mL, Intravenous, PRN, Mery Garcia PA vancomycin (Vancocin) 1,250 mg in sodium chloride 0.9% 250 mL IVPB (vial adapter required), 1,250 mg, Intravenous, q12h, Fabienne Palm MD, Last Rate: 220 mL/hr at 08/09/25 1853, 1,250 mg at 08/09/25 1853 [2] Allergies Allergen Reactions Codeine Itching * Care Plan - Maximo Escamilla RN - 08/08/2025 10:14 PM EST Problem: Adult Inpatient Plan of Care Goal: Plan of Care Review Outcome: Ongoing, Progressing Flowsheets (Taken 08/08/2025 2211) Progress: improving Plan of Care Reviewed With: patient Goal: Patient-Specific Goal (Individualized) Outcome: Ongoing, Progressing Flowsheets (Taken 08/08/20251999) Patient/Family-Specific Goals (Include Timeframe): Pt will have no S/S infection throughout this shift Individualized Care Needs: infection control Anxieties, Fears or Concerns: none stated Goal: Absence of Hospital-Acquired Illness or Injury Outcome: Ongoing, Progressing Intervention: Identify and Manage Fall Risk Flowsheets (Taken 08/08/20251999) Safety Promotion/Fall Prevention: activity supervised assistive device/personal items within reach clutter-free environment maintained fall prevention program maintained lighting adjusted mobility aid in reach safety round/check completed Intervention: Prevent Skin Injury Flowsheets Taken 08/08/20252210 Skin Protection: transparent dressing maintained incontinence pads utilized Taken 08/08/20251999 Body Position: weight shifting Intervention: Prevent and Manage VTE (Venous Thromboembolism) Risk Flowsheets (Taken 08/08/20251999) VTE Prevention/Management: SCDs (sequential compression devices) off Intervention: Prevent Infection Flowsheets (Taken 08/08/20252210) Infection Prevention: environmental surveillance performed hand hygiene promoted single patient room provided rest/sleep promoted Goal: Optimal Comfort and Wellbeing Outcome: Ongoing, Progressing Intervention: Monitor Pain and Promote Comfort Flowsheets (Taken 08/08/20252210) Pain Management Interventions: pillow support provided relaxation techniques promoted rest quiet environment facilitated Intervention: Provide Person-Centered Care Flowsheets (Taken 08/08/20252210) Trust Relationship/Rapport: care explained questions answered thoughts/feelings acknowledged questions encouraged Problem: Pain Acute Goal: Optimal Pain Control and Function Outcome: Ongoing, Progressing Intervention: Optimize Psychosocial Wellbeing Flowsheets (Taken 08/08/20252210) Supportive Measures: active listening utilized decision-making supported self-care encouraged relaxation techniques promoted Diversional Activities: television smartphone Spiritual Activities Assistance: affirmation provided Intervention: Develop Pain Management Plan Flowsheets (Taken 08/08/20252210) Pain Management Interventions: pillow support provided relaxation techniques promoted rest quiet environment facilitated Intervention: Prevent or Manage Pain Flowsheets (Taken 08/08/20252210) Sensory Stimulation Regulation: care clustered quiet environment promoted Bowel Elimination Promotion: ambulation promoted Sleep/Rest Enhancement: awakenings minimized relaxation techniques promoted Medication Review/Management: medications reviewed high-risk medications identified * Care Plan - Olga Tomlin RN - 08/08/2025 3:17 PM EST Problem: Adult Inpatient Plan of Care Goal: Plan of Care Review Outcome: Ongoing, Progressing Flowsheets (Taken 08/08/2025 1515) Progress: improving Plan of Care Reviewed With: patient Goal: Patient-Specific Goal (Individualized) Outcome: Ongoing, Progressing Flowsheets (Taken 08/08/2025 0800) Patient/Family-Specific Goals (Include Timeframe): Pt will have no S/S infection Pt will participate in his ADLs today Pt will verbalize understanding of his POC Individualized Care Needs: infection control Anxieties, Fears or Concerns: I wonder what my toe and foot look like Goal: Absence of Hospital-Acquired Illness or Injury Outcome: Ongoing, Progressing Intervention: Identify and Manage Fall Risk Flowsheets (Taken 08/08/2025 0500 by Marilu Hernandez CNA) Safety Promotion/Fall Prevention: clutter-free environment maintained fall prevention program maintained lighting adjusted room organization consistent nonskid shoes/slippers when out of bed safety round/check completed Intervention: Prevent Skin Injury Flowsheets (Taken 08/08/2025 1515) Skin Protection: protective footwear used Intervention: Prevent Infection Flowsheets (Taken 08/08/2025 151) Infection Prevention: environmental surveillance performed equipment surfaces disinfected hand hygiene promoted personal protective equipment utilized single patient room provided Goal: Optimal Comfort and Wellbeing Outcome: Ongoing, Progressing Intervention: Monitor Pain and Promote Comfort Flowsheets (Taken 08/08/2025 151) Pain Management Interventions: quiet environment facilitated relaxation techniques promoted Intervention: Provide Person-Centered Care Flowsheets (Taken 08/08/2025 1515) Trust Relationship/Rapport: care explained choices provided reassurance provided thoughts/feelings acknowledged emotional support provided empathic listening provided questions answered questions encouraged Problem: Pain Acute Goal: Optimal Pain Control and Function Outcome: Ongoing, Progressing Intervention: Optimize Psychosocial Wellbeing Flowsheets (Taken 08/08/2025 151) Supportive Measures: active listening utilized positive reinforcement provided relaxation techniques promoted self-responsibility promoted verbalization of feelings encouraged Diversional Activities: television smartphone Spiritual Activities Assistance: affirmation provided Intervention: Develop Pain Management Plan Flowsheets (Taken 08/08/2025 151) Pain Management Interventions: quiet environment facilitated relaxation techniques promoted Intervention: Prevent or Manage Pain Flowsheets Taken 08/08/2025 1515 by Olga Tomlin, RN Sensory Stimulation Regulation: quiet environment promoted Sleep/Rest Enhancement: relaxation techniques promoted Taken 08/07/20252148 by Janie Ma RN Bowel Elimination Promotion: ambulation promoted Medication Review/Management: medications reviewed * Progress Notes - Fabienne Palm MD - 08/08/2025 10:50 AM EST Images from the original note were not included. General Medicine Inpatient Progress Note Patient: Hi Goode PCP: Iraida Reese APRN Date: 08/08/2025 Day of admission: 1 Subjective Pt seen on rounds this AM. He states that on he was helping his friend out and stepped on a nail. At the time he was wearing boots and he did not realize it. When he got home that evening he saw the nail, he states that it looked very similar to the nails used to secure shingles or installation. He notes that there was blood on the tip but can not recall how far it was in. He approximates that the nail was about 2inches or so in length with a plastic washer above. He washed the wound with peroxide and covered it. 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 He states by that evening the pain was 10/10 with throbbing and he experienced chills. He took some of his 's muscle relaxants and laid down for about an hr or so. He states when he woke up the pain persisted. He denies any fever, nausea, vomiting, abdominal pain, difficulty chewing or moving his jaw. And he reports that he is chronically constipated from his home meds and goes about every 2 days or so. He reports that his has cats. They sleep by him at night and he has some excoriations on his legs that are healing which he attribu sanchez to them. He denies any new symptoms or overnight events. He states it was quite painful to go to the bathroom but otherwise no other complaints Objective INPATENT MEDICATIONS Current Medications[1] ALLERGIES Allergies[2] 24 HOUR VITALS Temp: [36.7 ??C (98.1 ??F)-37.4 ??C (99.3 ??F)] 37.4 ??C (99.3 ??F) Heart Rate: [66-79] 74 Resp: [15-18] 16 BP: (110-147)/(71-77) 115/72 INTAKE/OUTPUT Intake/Output Summary (Last 24 hours) at 08/08/2025 1126 Last data filed at 08/08/2025 0814 Gross per 24 hour Intake 550 ml Output 1750 ml Net -1200 ml Physical Exam - GENERAL: No acute distress. Well-nourished. - EYES: EOMI. Anicteric. - HENT: Moist mucous membranes. Poor dentition. No scleral icterus. No cervical lymphadenopathy. - PULMONARY: Clear to auscultation bilaterally. Air entry appreciated to bilateral bases. No wheezing or rhonchi. No accessory muscle use. - CARDIOVASCULAR: Regular rate and rhythm. No gallop. No JVD. - ABDOMEN: Soft, non-tender and non-distended. No palpable masses. - MSK: No edema. Non-tender.slightly erythematous along the anterior tibia with old excoriations noted. No open wounds. Left lower ext wrapped during rounds. See media - SKIN: Warm, legs as described above - NEUROLOGIC: Alert and oriented x 4. No focal neurological deficits. CN II-XII grossly intact, butnot individually tested. - PSYCHIATRIC: Cooperative. Appropriate mood and affect. Review of Systems Constitutional: Negative for chills, fever and unexpected weight change. Respiratory: Negative for cough. Gastrointestinal: Positive for constipation. Musculoskeletal: Negative for myalgias. Skin: Negative for rash. Neurological: Negative for dizziness. REVIEW OF LABORATORY DATA Lab Results Component Value Date WBC 9.46 08/08/2025 HGB 13.4 (L) 08/08/2025 HCT 39.8 (L) 08/08/2025 MCV 89 08/08/2025 PLT 138 (L) 08/08/2025 Lab Results Component Value Date GLUCOSE 268 (H) 08/08/2025 CALCIUM 9.3 08/08/2025 NA 133 (L) 08/08/2025 K 4.3 08/08/2025 CO2 25 08/08/2025 CL 99 08/08/2025 BUN 27 (H) 08/08/2025 CREATININE 1.45 (H) 08/08/2025 Lab Results Component Value Date ALT 34 08/07/2025 AST 20 08/07/2025 ALKPHOS 75 08/07/2025 BILITOT 0.7 08/07/2025 Lab Results Component Value Date INR 1.1 08/07/2025 REVIEW OF IMAGING STUDIES: CT of left lower extremity at OSH showed subtle rounded ovioid lucency measuring approx 3.7mm involving the 4th middle phalynx suspicious for area of bony erosion/osteomyelitis. Soft tissue thickening and heterogeneity involving the soft tissues of the 4th digit suggesting edema. A few small linearand rounded lucencies involving the slightly more proximal soft tissues of the 4th digit suggest tiny areas of subcutaneous emphysema. REVIEW OF PROCEDURES none Assessment and Plan: 4th Toe LLE Cellulitis with puncture wound and foci of gas on CT Pt has a h/o IDDM with a high Hgb A1c 9.5 At increased risk for complicated infections R/O Osteomyelitis vs Necrotizing Infection Also foci of gas --> must r/o necrotizing infection ID consulted on 08/08/25 we appreciate their recommendations Levaquin was discontinued Plan: MRI of the left foot with IV contrast to r/o Osteomyelitis vs Necrotizing infection Continue on Vancomycin and Zosyn CRP 178-> to be repeated weekly Blood cx NGTD - ( low volume of sample) IDDM Type II Last Hgb A1c 9.5 Admitting physician held Glipizide Currently on Lantus 20 u at bedtime with Lispro 10 TID AC BG this AM > 359 Will increase coverage to Lantus 15 U BID With high dose sliding scale and more frequent FS until BG <180 mg /fl Goal BG 140-180 mg/dl Daily CMP. HTN ( essential) BP controlled At home he is on Lisinopril hydrochlorothiazide combo 20/12.5mg 2 tabs by mouth daily Pt continues on Hydrochlorothiazide 25mg PO daily Lisinopril 40mg PO OD Chronic Medical conditions: HLD Atorvastatin 40 mg Has an elevated CK most likely from acute infection MDD (Major Depressive Disorder) Continue on Wellbutrin 150 mg daily Vit D deficiency On Vit D replacement Will check lvl in AM BPH On Proscar 5 mg daily Monitor UOP Notify MD of hematuria or no UOP for 6 hrs Inpatient Checklist: Inpatient checklist: - Antimicrobial de-escalation: not at this time. Awaiting MRI w/ IV contrast - Bowel regimen: Last BM pt has a h/o chronic constipation - Call family: (Pt has consented for us to update fam unless noted otherwise) - Code status: Full Code - Diet: Dietary Orders (From admission, onward) Start Ordered 08/07/25 1325 Adult diet Diet texture: Regular; Carbohydrate restriction: Consistent Carb 2 (80 gm max/meal) Diet effective now References: IDDSI Diet Texture Guide Question Answer Comment Diet texture Regular Carbohydrate restriction: Consistent Carb 2 (80 gm max/meal) 08/07/25 1332 - DVT prophylaxis: This patient does not have an active medication from one of the medication groupers. - Electrolytes: Replete PRN - IVF: IV Abx - Labs: CBC at least 2x weekly. 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 Will be ble to better gauge his dispo after MRI findings. CODE STATUS: Full Code EMERGENCY CONTACT: No emergency contact information on file. Fabienne Palm [facility] [[email or web address]]ist Medicine This dictation was prepared using voice recognition software. As a result, errors may occur. When identified, these errors have been corrected. While every attempt is made to correct errors during dictation, errors may still exist. All images were reviewed. All changes discussed with consultants. Outside records reviewed as applicable. Note to patient: The 21st Century Cures Act makes medical notes like these available to patients inthe interest of transparency. However, be advised this is a medical document. It is intended as peer to peer communication. It is written in medical language and may contain abbreviations or verbiagethat are unfamiliar. It may appear blunt or direct. Medical documents are intended to carry relevant information, facts as evident, and the clinical opinion of the practitioner. [1] Current Facility-Administered Medications: acetaminophen (Tylenol) tablet 1,000 mg, 1,000 mg, Oral, q6h PRN, Mery Garcia PA, 1,000 mg at 08/07/251612 atorvastatin (Lipitor) tablet 40 mg, 40 mg, Oral, Nightly, Mery Garcia PA, 40 mg at 08/07/252007 buPROPion SR (Wellbutrin SR) 12 hr tablet 150 mg, 150 mg, Oral, Daily, Mery Garcia PA,150 mg at 08/08/25 0805 cholecalciferol (Vitamin D-3) tablet 1,000 Units, 1,000 Units, Oral, Daily, Mery Garcia PA, 1,000 Units at 08/08/25 0805 glucose (Glutose) 40 % oral gel 15-30 grams of glucose, 15-30 grams of glucose, Sublingual, q15 minPRN OR dextrose 10 % (D10W) bolus 125 mL, 125 mL, Intravenous, q15 min PRN OR dextrose 10 %(D10W) bolus 250 mL, 250 mL, Intravenous, q15 min PRN OR glucagon (human recombinant) injection1 mg, 1 mg, Intramuscular, q15 min PRN, Mery Garcia PA docusate sodium (Colace) capsule 250 mg, 250 mg, Oral, Daily, Fabienne Palm MD finasteride (Proscar) tablet 5 mg, 5 mg, Oral, Daily, Mery Garcia PA, 5 mg at 805 hydroCHLOROthiazide (HYDRODiuril) tablet 25 mg, 25 mg, Oral, Daily, Mery Garcia PA, 25mg at 08/08/25 08 ibuprofen tablet 400 mg, 400 mg, Oral, q6h PRN, Mery Garcia PA insulin glargine-yfgn 100 UNIT/ML injection 15 Units, 15 Units, Subcutaneous, BID, Fabienne Palm MD insulin lispro (Admelog) 100 units/mL injection - Correction - Resistant Dose, 0-10 Units, Subcutaneous, TID with meals, Fabienne Palm MD, 10 Units at 08/08/25 0814 insulin lispro (Admelog) injection - Correction - Nighttime Dose, 0-3 Units, Subcutaneous, Twice atnight, Fabienne Palm MD, 1 Units at 08/08/25 0353 Insulin Lispro (Admelog, HumaLOG) 100 UNIT/ML injection 5 Units, 5 Units, Subcutaneous, TID with meals, Mery Garcia PA, 5 Units at 08/08/25 0814 lisinopril tablet 40 mg, 40 mg, Oral, Daily, Meyr Garcia PA, 40 mg at 08/08/25 0805 melatonin tablet 3 mg, 3 mg, Oral, Nightly PRN, Mery Garcia PA multivitamin (Theragran-M) tablet 1 tablet, 1 tablet, Oral, Daily, Mery Garcia PA, 1 tablet at 08/08/25 0805 piperacillin-tazobactam (Zosyn) 3.375 g in sodium chloride 0.9% 100 mL IVPB (vial adapter required), 3.375 g, Intravenous, q6h, Mery Garcia PA, Last Rate: 36.7 mL/hr at 08/08/25 08, 3.375 g at 08/08/25 08 polyethylene glycol (Miralax) packet 17 g, 17 g, Oral, Daily, Fabienne Palm MD [COMPLETED] Insert peripheral IV, , , Once AND [COMPLETED] Saline lock IV, , , Once AND sodium chloride 0.9 % flush 10 mL, 10 mL, Intravenous, q12h, 10 mL at 08/08/25 0144 AND sodium chloride 0.9 % flush 10 mL, 10 mL, Intravenous, PRN, Mery Garcia PA Vancomycin HCl in NaCl (Vancocin) IVPB 1,000 mg, 1,000 mg, Intravenous, q12h, Radha Garcia PA, 1,000 mg at 08/08/25 0814 [2] Allergies Allergen Reactions Codeine Itching * Care Plan - Janie Ma RN - 08/07/2025 9:51 PM EST Problem: Adult Inpatient Plan of Care Goal: Plan of Care Review Outcome: Ongoing, Progressing Flowsheets (Taken 08/07/20252148) Progress: no change Outcome Evaluation: agrees with care plan Plan of Care Reviewed With: patient Goal: Patient-Specific Goal (Individualized) Outcome: Ongoing, Progressing Flowsheets (Taken 08/07/20252148) Patient/Family-Specific Goals (Include Timeframe): be free from falls this shift Individualized Care Needs: safety Anxieties, Fears or Concerns: none stated Goal: Absence of Hospital-Acquired Illness or Injury Outcome: Ongoing, Progressing Intervention: Identify and Manage Fall Risk Flowsheets (Taken 08/07/20252148) Safety Promotion/Fall Prevention: activity supervised Intervention: Prevent Skin Injury Flowsheets (Taken 08/07/20252148) Body Position: weight shifting Skin Protection: incontinence pads utilized Intervention: Prevent and Manage VTE (Venous Thromboembolism) Risk Flowsheets (Taken 08/07/20252148) VTE Prevention/Management: patient refused intervention education provided Goal: Optimal Comfort and Wellbeing Outcome: Ongoing, Progressing Intervention: Monitor Pain and Promote Comfort Flowsheets (Taken 08/07/20252148) Pain Management Interventions: position adjusted Intervention: Provide Person-Centered Care Flowsheets (Taken 08/07/20252148) Trust Relationship/Rapport: care explained Problem: Pain Acute Goal: Optimal Pain Control and Function Outcome: Ongoing, Progressing Intervention: Optimize Psychosocial Wellbeing Flowsheets (Taken 08/07/20252148) Supportive Measures: active listening utilized Diversional Activities: television Spiritual Activities Assistance: other (see comments) Intervention: Develop Pain Management Plan Flowsheets (Taken 08/07/20252148) Pain Management Interventions: position adjusted Intervention: Prevent or Manage Pain Flowsheets (Taken 08/07/20252148) Sensory Stimulation Regulation: television on Complementary Therapy: other (see comments) Bowel Elimination Promotion: ambulation promoted Sleep/Rest Enhancement: awakenings minimized Medication Review/Management: medications reviewed * Progress Notes - Amada Escobar, PharmD - 08/07/2025 7:15 PM EST Pharmacokinetic Consult - Therapeutic Drug Monitoring HPI and Hospital Course: Hi Goode is a 60 y.o. male presenting with cellulitis and abscess of toe and left foot who was started on IV vancomycin for bone/joint infection. Pharmacy was consulted for management of vancomycin. Dose History: Recent Vancomycin Admin No antibiotic orders with administrations found. Wt Readings from Last 1 Encounters: 08/07/25 87.5 kg (192 lb 14.4 oz) BMI: 30.21 kg/m?? Creatinine, Plasma (mg/dL) Date/Time Value 08/07/2025 0642 1.04 Estimated Creatinine Clearance: 80.8 mL/min (by C-G formula based on SCr of 1.04 mg/dL). Assessment Estimated kinetic evaluation utilizing population kinetics: Vancomycin Dosing Method Vancomycin Dose Calculation Method Area under the curve (AUC) dosing General Parameters for Vancomycin Dose Calculation (AUC) Dosing Weight 87.5 kg (192 lb 14.4 oz) Vancomycin clearance calculation method Matzke equation Administer over 60 minutes AUC 24 hr goal (mg-hr/L) 500 mg??hr/L Estimated creatinine clearance (mL/min 80 mL/min Matzke Equation Parameters for Vancomycin Dose Calculation (AUC) Estimated vancomycin Vd (0.7 L/kg typically) 0.7 L/kg (Typical) Crass Equation Parameters for Vancomycin Dose Calculation (AUC) Serum creatinine (mg/dL) 1.04 mg/dL Recommended Initial Vancomycin Dosing Estimated Ke (hr ^-1) 0.0708 hr^-1 Estimated half-life (hr) 9.79 hr Estimated vancomycin Cl (L/hr) 4.337 Recommended TDD (mg) 2168.5 Plan 1. Recommend loading dose of 2000 mg IV once (~23 mg/kg) 2. Recommend initiating vancomycin 1000 mg IV q12h for a total daily dose of 2000 mg and predicted AUC of 461 mg??hr/L. 3. Monitor renal function (Scr and BUN) and UOP at least 2-3x/week or more frequently if renal function changes. 4. Obtain vancomycin levels around the 4th dose of new regimen if therapy is to be continued. Pharmacy will continue to follow. Submitted by: Amada Escobar, Kayley 08/07/2025 7:14 PM * Consults - Yuliet Brown MD - 08/07/2025 2:56 PM ESTAssociated Order(s): IP CONSULT TO INFECTIOUS DISEASES BONE AND JOINT INFECTIOUS DISEASE INPATIENT CONSULT NOTE Reason for Consult: Left foot puncture wound from nail in a diabetic Attending: Oriana Castelan MD Date of admission: 08/07/2025 History of Present Illness: Hi Goode is a 60 y.o. male with history of insulin-dependent T2DM, HTN, and HLD who presented to [facility] on 08/07/25 as a transfer from [facility] with a left 4th toe puncture wound of two days duration. ID team were consulted to provide recommendations on antibiotics andfurther workup for puncture wound. Mr. Goode presented to [facility] on the evening of 08/06/25 after stepping on a nail that went through his left shoe on 08/05/25 while helping a friend replace windows. He removed the nail and washed out the wound with peroxide but soon developed worsened pain and chills with streaking on Saturday, 08/06. At [facility] he was started on levaquin and clindamycin, and was noted to have elevated CRP. CT of his left lower extremity showed a small foci of gas near the puncture wound with edema of the fourth toe. Since arrival to he has been seen by General Surgery. They recommended IV antibiotic therapy with no surgical intervention at this time. Admission labs at notable for WBC of 10, blood cultures pending, and CRP of 178. EKG with QTC of 358 prior to starting Levaquin. When spoken to, Mr. Goode confirmed the above history. 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 He denied any fevers, chills, nausea,vomiting, or diarrhea. He denied tobacco, alcohol, and substances. Review of Systems: 14 systems reviewed and negative unless otherwise stated PMH: Past Medical History[1] PSH: Surgical History[2] FH: Family History[3] SH: Social History[4] Allergies: Allergies[5] Objective: Visit Vitals BP 120/74 (BP Location: Right arm, Patient Position: Lying) Pulse 68 Temp 36.8 ??C (98.3 ??F) (Oral) Resp 18 Ht 1.702 m (5' 7 ) Wt 87.5 kg (192 lb 14.4 oz) SpO2 95% BMI 30.21 kg/m?? Smoking Status Never BSA 2.03 m?? Physical exam: GEN: alert, no acute distress HEAD: Normocephalic, atraumatic EYES: EOMI, no scleral icterus ENT: normal hearing, OP clear, moist mucosa CHEST: within normal limits, no indwelling devices PULM: CTA bilaterally, good air movement CV: normal rate, regular rhythm, no murmur appreciated ABD: bowel sounds active, soft, nontender, nondistended, no palpable masses : deferred EXT: Left leg with erythematous fourth toe with streaking up foot and leg, warm to the touch, bloodcongealing under toe NEURO: AAO x 3, no obvious deficits PSYCH: cooperative, appropriate affect Labs: CBC WBC 10.01 Hb 14.3 Plt 132 (L) Hct 41.2 ANC 7.45 (H) BMP Na 131 (L) Cl 98 BUN 17 Glu 248 (H) K 4.3 Co2 23 Cr 1.04 Mg ??, Phos ?? LFT AST 20 AlkPhos 75 T Prot 7.0 ALK 34 Bili 0.7 Alb ?? D.Bili ?? Results from last 7 days Lab Units 08/07/25 0642 CRP mg/L 178.0* Results from last 7 days Lab Units 08/07/25 0642 SED RATE mm/hr 28* Medications: Current Medications[6] Imaging/Studies: No image results found. Micro: 08/07/25 Blood Cultures x2 - Pending Antibiotics: Levaquin (ordered by not yet administered) Assessment: Hi Goode is a 60 y.o. male with history of insulin-dependent T2DM, HTN, and HLD who presented to [facility] on 08/07/25 as a transfer from [facility] with a left 4th toe puncture wound of two days duration. ID team were consulted to provide recommendations on antibiotics andfurther workup for puncture wound. Given the gas noticed on CT, would recommend an MRI with IV contrast of the left foot to better assess for underlying osteomyelitis vs necrotizing infection. Would add on anaerobe and pseudomonas coverage with Zosyn as well. # Cellulitis of left fourth toe after puncture wound from nail # Risk of Pseudomonas based on injury and T2DM Recommendations: - Please discontinue levofloxacin and start Zosyn and Vancomycin. - Would obtain an MRI of the left foot with IV contrast to assess for underlying osteomyelitis vs necrotizing infection. - Please obtain a weekly CRP, as well as twice weekly CBC and CMP. - Duration of therapy to be determined by imaging. Thank you for the opportunity to see this patient in consultation. BONE AND JOINT ID will follow. Yuliet Brown MD Infectious Disease Fellow, PGY-5 [1] No past medical history on file. [2] No past surgical history on file. [3] No family history on file. [4] Social History Tobacco Use Smoking status: Never Substance Use Topics Alcohol use: No [5] Allergies Allergen Reactions Codeine Itching [6] Current Facility-Administered Medications Medication Dose Route Frequency Provider Last Rate Last Admin acetaminophen (Tylenol) tablet 1,000 mg 1,000 mg Oral q6h PRN Mery Garcia PA atorvastatin (Lipitor) tablet 40 mg 40 mg Oral Nightly Mery Garcia PA buPROPion SR (Wellbutrin SR) 12 hr tablet 150 mg 150 mg Oral Daily Mery Garcia PA cholecalciferol (Vitamin D-3) tablet 1,000 Units 1,000 Units Oral Daily Mery Garcia PA glucose (Glutose) 40 % oral gel 15-30 grams of glucose 15-30 grams of glucose Sublingual q15 min PRN Mery Garcia PA Or dextrose 10 % (D10W) bolus 125 mL 125 mL Intravenous q15 min PRN Mery Garcia PA Or dextrose 10 % (D10W) bolus 250 mL 250 mL Intravenous q15 min PRN Mery Garcia PA Or glucagon (human recombinant) injection 1 mg 1 mg Intramuscular q15 min PRN Mery Garcia PA finasteride (Proscar) tablet 5 mg 5 mg Oral Daily Mery Garcia PA hydroCHLOROthiazide (HYDRODiuril) tablet 25 mg 25 mg Oral Daily Mery Garcia PA ibuprofen tablet 400 mg 400 mg Oral q6h PRN Mery Garcia PA insulin glargine-yfgn 100 UNIT/ML injection 20 Units 20 Units Subcutaneous Nightly Mery Garcia PA Insulin Lispro (Admelog, HumaLOG) 100 UNIT/ML injection 10 Units 10 Units Subcutaneous TID with meals Mery Garcia PA [START ON 08/08/2025] levoFLOXacin (Levaquin) IVPB 750 mg 750 mg Intravenous q24h Mery Garcia PA lisinopril tablet 40 mg 40 mg Oral Daily Mery Garcia PA melatonin tablet 3 mg 3 mg Oral Nightly PRN Mery Garcia PA multivitamin (Theragran-M) tablet 1 tablet 1 tablet Oral Daily Mery Garcia PA sodium chloride 0.9 % flush 10 mL 10 mL Intravenous q12h Mery Garcia PA 10 mL at 08/07/25 1442 And sodium chloride 0.9 % flush 10 mL 10 mL Intravenous PRN Mery Garcia PA Current Outpatient Medications Medication Sig Dispense Refill atorvastatin (Lipitor) 40 MG tablet Take 1 tablet by mouth daily. buPROPion SR (Wellbutrin SR) 150 MG 12 hr tablet Take 1 tablet by mouth daily. Do not crush, chew, or split. cholecalciferol (Vitamin D3) 25 MCG (1000 UT) tablet Take 1 tablet by mouth daily. finasteride (Proscar) 5 MG tablet Take 1 tablet by mouth daily. Do not crush, chew, or split. glipiZIDE XL 10 MG 24 hr tablet Take 1 tablet by mouth daily. Do not crush, chew, or split. insulin aspart (NovoLOG FLEXPEN) 100 UNIT/ML injection pen Inject 0-12 Units under the skin 3 timesa day before meals. insulin glargine (Lantus SoloStar) 100 UNIT/ML injection pen Inject 20-25 Units under the skin nightly. lisinopril-hydroCHLOROthiazide 20-12.5 MG tablet Take 2 tablets by mouth daily. multivitamin (Theragran-M) tablet Take 1 tablet by mouth daily. Cosigned by Mirna Ken MD at 08/07/2025 7:46 PM EST Associated attestation - Mirna Ken MD - 08/07/2025 7:46 PM EST I saw and evaluated the patient with the student/resident/fellow. I discussed the case with the student/resident/fellow and agree with the findings and plan as documented. I personally performed the exam and medical decision-making. I reviewed and further edited the note. Mirna Ken MD Infectious Diseases Staff Physician I spent greater than 82 minutes performing the following components of the encounter (on the day ofthe encounter): reviewing history, examining the patient, reviewing imaging and/or labs and/or other imaging results, counseling the patient and family/caregiver. Greater than 50% of the time spent on the encounter was [id number] providing direct patient care, counseling for the patient/caregiver, and care coordination. The following complex inpatient infectious disease services were performed today: Complex antimicrobial therapy counseling and treatment * H&P - Mery Garcia PA - 08/07/2025 1:34 PM ESTAssociated Order(s): Consult to [facility] Images from the original note were not included. Consult to [facility] Consult performed by: Mery Garcia PA Consult ordered by: Zay Dave MD Reason for consult: Admission Subjective Chief complaint Left foot pain after stepping on a nail two days ago. History Of Present Illness Hi Goode is a 60 y.o. male with PMH of insulin-dependent DM type II, HTN, and HLD, who presented 08/07/25 in transfer from [facility] with a left 4th toe puncture wound from stepping on a nail two days prior. He was carrying a window and helping a friend install it when he stepped on the nail while wearing boots and socks, then pulled the nail out and cleaned the wound withhydrogen peroxide. 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 He was given Levaquin IV, then when CT LLE noted concern for possible osteomyelitis he was given clindamycin for possible necrotizing infection before being transferred to . He denies N/V, SOB, cough, chest pain, or abdominal pain. Medical/Surgical/Social/Family History Past Medical History[1] Surgical History[2] Social History[3] Family History[4] Travel History Relevant International Travel History: Travel Screening Question Response Have you been in contact with someone who was sick? No / Unsure Do you have any of the following new or worsening symptoms? None of these Have you traveled internationally or domestically in the last month? No Travel History Travel since 07/07/25 No documented travel since 07/07/25 Immunizations VACCINE / DOSE Flu Tetanus Pneumovax Shingles Allergies Codeine Outpatient medications in system Home Medications[5] Medications ordered for hospitalization Current Scheduled Medications[6] Current Continuous Medications[7] Current PRN Medications[8] Objective Review of Systems Constitutional: Positive for chills and fever. Respiratory: Negative for cough and shortness of breath. Cardiovascular: Negative for chest pain and leg swelling. Gastrointestinal: Negative for abdominal pain, nausea and vomiting. Musculoskeletal: Positive for arthralgias. Skin: Negative for color change. Neurological: Negative for dizziness and numbness. Psychiatric/Behavioral: Positive for depression Physical Exam Constitutional: General: He is not in acute distress. Appearance: Normal appearance. He is not ill-appearing. HENT: Head: Normocephalic and atraumatic. Nose: Nose normal. Mouth/Throat: Mouth: Mucous membranes are moist. Eyes: General: No scleral icterus. Extraocular Movements: Extraocular movements intact. Pupils: Pupils are equal, round, and reactive to light. Cardiovascular: Rate and Rhythm: Normal rate and regular rhythm. Heart sounds: Normal heart sounds. No murmur heard. No friction rub. No gallop. Pulmonary: Effort: Pulmonary effort is normal. Breath sounds: Normal breath sounds. Abdominal: General: Abdomen is flat. Bowel sounds are normal. Palpations: Abdomen is soft. Tenderness: There is no abdominal tenderness. Musculoskeletal: General: Normal range of motion. Cervical back: Normal range of motion and neck supple. Lymphadenopathy: Cervical: No cervical adenopathy. Skin: General: Skin is warm and dry. Findings: No rash. Comments: Left 4th toe ventrolateral wound, dried blood and clear drainage on 4th and 5th toes and between toes without additional wounds noted. Neurological: General: No focal deficit present. Mental Status: He is alert and oriented to person, place, and time. Psychiatric: Mood and Affect: Mood normal. Last Recorded Vitals Blood pressure 123/74, pulse 65, temperature 36.5 ??C (97.7 ??F), temperature source Oral, resp. rate 18, height 1.702 m (5' 7 ), weight 87.5 kg (192 lb 14.4 oz), SpO2 95%. Results Review I have reviewed the latest lab and imaging results. - WBC 10.01, Hgb 14.3, Lactate 1.0, Glucose 248, Na 131. Blood cx pending x2. CRP 178, ESR 28. Assessment & Plan Cellulitis and abscess of toe of left foot Cellulitis of left 4th toe, complicated skin/soft tissue infection - WBC 10.01. Blood cx pending x2. CRP 178, ESR 28. - Surgery consulted, no need for acute surgical intervention or debridement at this time, w/ recs for rinsing with Betadine. Will do this BID and cover with Kerlix since pt. is ambulatory. - Resume IV levofloxacin Insulin-dependent DM type II - Hold home glipizide - Continue home Lantus 20 units at bedtime. Will give prandial lispro 10 unit TID instead of home Novolog 15 units TID. FSBS with correction insulin. - CC2 diet Hypertension - Continue home lisinopril and hydrochlorothiazide Hyperlipidemia - Continue home atorvastatin Venous thromboembolism prophylaxis Patient on SCDs due to low risk of DVT/PE. Diet Dietary Orders (From admission, onward) Start Ordered 08/07/25 1325 Adult diet Diet texture: Regular; Carbohydrate restriction: Consistent Carb 2 (80 gm max/meal) Diet effective now References: IDDSI Diet Texture Guide Question Answer Comment Diet texture Regular Carbohydrate restriction: Consistent Carb 2 (80 gm max/meal) 08/07/25 1332 Code Status Full Code Disposition - Pt. plans to return home when medically ready. [1] No past medical history on file. [2] No past surgical history on file. [3] Social History Tobacco Use Smoking status: Never Substance Use Topics Alcohol use: No [4] No family history on file. [5] (Not in a hospital admission) [6] sodium chloride, 10 mL, Intravenous, q12h [7] [8] PRN medications: acetaminophen, ibuprofen, melatonin, Insert peripheral IV AND Saline lock IV AND sodium chloride AND sodium chloride * H&P - Bernice Grimaldo MD - 08/07/2025 8:13 AM ESTAssociated Order(s): Consult to Emergency General Surgery Images from the original note were not included. Reason for Consultation: wound Requesting Service: Emergency Department Consult to Emergency General Surgery Consult performed by: Bernice Grimaldo MD Consult ordered by: Zay Dave MD History Of Present Illness Hi Goode is a 60 y.o. male with past medical history significant for diabetes on insulin whopresents from an outside hospital due to concern for a puncture wound. Patient reports he was helping a friend replaced windows on when he stepped on a nail in his left shoe. Patient reportshe felt pain in his left foot, removed the nail and washed out the wound with peroxide. Patient reports he had worsening pain and chills on Saturday. He went to an outside hospital last night due to the pain and redness. Patient denies significant pain with palpation or movement. Denies injury anywhere else. Labs significant for CRP elevation, mild ESR elevation, no evidence of leukocytosis, hemoglobin appropriate. Patient was given Levaquin and clindamycin due to concern for necrotizing fasciitis. Patient reports he had a tetanus shot at the outside hospital. Left lower extremity CT with evidence of small foci of gas near the puncture wound, edema of the fourth toe. History Obtained From: Chart Records/OSH Records Past Medical History He has no past medical history on file. Reviewed and not pertinent Surgical History He has no past surgical history on file. Reviewed and not pertinent Family History Family History[1] Reviewed and not pertinent Social History He reports that he has never smoked. He does not have any smokeless tobacco history on file. He reports that he does not drink alcohol. No history on file for drug use. Reviewed and not pertinent Allergies Codeine Reviewed and not pertinent Medications Current Medications[2] Reviewed and not pertinent Review of Systems Relevant review of systems was obtained as able and is negative unless stated above in HPI. Last Recorded Vitals Blood pressure 112/75, pulse 75, temperature 36.9 ??C (98.5 ??F), temperature source Oral, resp. rate 16, height 1.702 m (5' 7 ), weight 87.5 kg (192 lb 14.4 oz), SpO2 95%. Physical Exam Constitutional: Appearance: Normal appearance. He is not ill-appearing or toxic-appearing. HENT: Head: Normocephalic and atraumatic. Nose: Nose normal. Mouth/Throat: Mouth: Mucous membranes are moist. Pharynx: Oropharynx is clear. Eyes: Extraocular Movements: Extraocular movements intact. Conjunctiva/sclera: Conjunctivae normal. Pupils: Pupils are equal, round, and reactive to light. Cardiovascular: Rate and Rhythm: Normal rate and regular rhythm. Pulses: Normal pulses. Heart sounds: Normal heart sounds. Pulmonary: Effort: Pulmonary effort is normal. Breath sounds: Normal breath sounds. Abdominal: General: Abdomen is flat. There is no distension. Palpations: Abdomen is soft. Tenderness: There is no abdominal tenderness. Musculoskeletal: General: Normal range of motion. Feet: Left foot: Skin integrity: Erythema and warmth present. Comments: Puncture wound on the toe, minor pain with palpation and manipulation of the toe; subtle streaking up mid calf Skin: General: Skin is warm and dry. Capillary Refill: Capillary refill takes less than 2 seconds. Neurological: Mental Status: He is alert and oriented to person, place, and time. Recent Results Labs in last 18 hours CBC WBC 10.01 Hb 14.3 Plt 132 (L) Hct 41.2 ANC 7.45 (H) INR 1.1, PTT ??, Anti-Xa ?? BMP Na 131 (L) Cl 98 BUN 17 Glu 248 (H) K 4.3 Co2 23 Cr 1.04 Ca 10.0 iCa ?? Mg ??, Phos ?? Lactate ?? LFT AST 20 AlkPhos 75 T Prot 7.0 ALK 34 Bili 0.7 Alb ?? D.Bili ?? Radiology I personally and independently reviewed the CT images available at today's visit which showed: Softtissue thickening and edema of the 4th digit, small area of subcutaneous emphysema likely secondaryto puncture wound. Assessment & Plan 60-year-old male with history of diabetes on insulin who presents after a puncture wound through his shoe with a nail on . Patient reports he has had increased swelling and pain since then. Labs without leukocytosis, inflammatory markers elevated. CT LLE demonstrates soft tissue edema/swelling, small foci of gas near fourth digit. Patient is hemodynamically stable, reports mild pain with palpation and manipulation of the digit. No purulent material draining or palpable fluctuance. Plan: - IV antibiotics per primary team - can rinse area with Betadine - no acute surgical intervention or need for debridement at this time Dispo: Continue Current Level of Care CODE STATUS: full code This Consult, Assessment, and Plan has been discussed with Dr. Conroy, Attending Physician Bernice Grimaldo MD [1] No family history on file. [2] No current facility-administered medications for this encounter. No current outpatient medications on file. Cosigned by Minoo Conroy MD at 08/17/2025 7:38 AM EST Associated attestation - Minoo Conroy MD - 08/17/2025 7:38 AM EST I saw and evaluated the patient with the resident/fellow. I discussed the case with the resident/fellow and agree with the findings and plan as documented. * ED Provider Notes - Alis Reilly MD - 08/07/2025 5:05 AM EST Images from the original note were not included. - HPI Chief Complaint Patient presents with Foot Infection HPI Patient is a 60-year-old male history of insulin-dependent type 2 diabetes who presents to the ED from OSH for left foot infection. Patient states that he stepped on a nail on while on work.States that he went home and washed out with hydrogen peroxide. Patient endorses worsening swellingand pain to the area of the last 2 days. Denies any fever at home. CT of left lower extremity at OSH showed subtle rounded ovioid lucency measuring approx 3.7mm involving the 4th middle phalynx suspicious for area of bony erosion/osteomyelitis. Soft tissue thickening and heterogeneity involving thesoft tissues of the 4th digit suggesting edema. A few small linear and rounded lucencies involving the slightly more proximal soft tissues of the 4th digit suggest tiny areas of subcutaneous emphysema. Patient was given Levaquin and clindamycin at OSH. Patient History Past Medical History[1] Surgical History[2] Family History[3] Social History[4] Allergies: Allergies[5] Physical Exam ED Triage Vitals [08/07/25 0518] Temp Heart Rate Resp BP 36.9 ??C (98.5 ??F) 75 18 112/75 SpO2 Temp Source Heart Rate Source Patient Position 95 % Oral -- -- BP Location FiO2 (%) -- -- Physical Exam Vitals and nursing note reviewed. Constitutional: General: He is not in acute distress. Appearance: He is well-developed. HENT: Head: Normocephalic and atraumatic. Eyes: Conjunctiva/sclera: Conjunctivae normal. Cardiovascular: Rate and Rhythm: Normal rate and regular rhythm. Heart sounds: No murmur heard. Pulmonary: Effort: Pulmonary effort is normal. No respiratory distress. Breath sounds: Normal breath sounds. Abdominal: Palpations: Abdomen is soft. Tenderness: There is no abdominal tenderness. Musculoskeletal: General: Tenderness present. No swelling. Cervical back: Neck supple. Comments: Swelling erythema to L foot 4th digit as shown below in photos. Skin: General: Skin is warm and dry. Capillary Refill: Capillary refill takes less than 2 seconds. Neurological: Mental Status: He is alert. Psychiatric: Mood and Affect: Mood normal. Joann Coma Scale Score: 15 ED Course & MDM - Assessment: 60 y.o. male presents to ED with complaint of foot pain. It should be noted that the chronic conditions includes IDDM, which currently is at goal therapy. This complicates the clinical picture because it Comorbidities: may be exacerbating symptoms, increases the amount and complexity of data to be reviewed, complicates the clinical workup, and increases the risk for morbidity Differential Diagnosis: NSTI, osteomyelitis, cellulitis, abscess, diabetic foot wound, among others In order to fully explore the differential diagnosis the following treatments and tests were ordered: ED Medication Administration from 08/07/2025 0219 to 08/07/2025 1332 Date/Time Order Dose Route Action 08/07/2025 0758 EST HYDROmorphone (Dilaudid) injection 0.5 mg 0.5 mg Intravenous Given All Other Orders Ordered Status Ordering Provider 08/07/25 1332 CBC and Differential Morning draw Acknowledged MERY GARCIA 08/07/25 1332 Basic metabolic panel Morning draw Acknowledged MERY GARCIA 08/07/25 1332 Vital Signs Every 6 hours Placed in And Linked Group Acknowledged MERY GARCIA 08/07/25 1332 Pulse Oximetry Every 6 hours Placed in And Linked Group Acknowledged MERY GARCIA T 08/07/25 1332 Sequential compression device Until discontinued Comments: SCDs must be in place and turned on EXCEPT when ACTIVELY ambulating. Acknowledged MERY GARCIA T 08/07/25 1332 Okay To Give Nicotine Replacement Until discontinued Acknowledged MERY GARCIA T 08/07/25 1332 Adult diet Diet texture: Regular; Carbohydrate restriction: Consistent Carb 2 (80 gm max/meal) Diet effective now Acknowledged MERY GARCIA T 08/07/25 1332 Full code Continuous Acknowledged MERY GARCIA T 08/07/25 1332 Admit to inpatient Once Completed MERY GARCIA T 08/07/25 1332 Mobility Orders Until discontinued Acknowledged MERY GARCIA T 08/07/25 1332 Notify physician (specify parameters) Until discontinued Acknowledged MERY GARCIA T 08/07/25 1332 Insert peripheral IV Once Placed in And Linked Group Completed MERY GARCIA 08/07/25 1332 Saline lock IV Once Placed in And Linked Group Completed MERY GARCIA T 08/07/25 1002 Consult to [facility] Medicine [facility] Once Specialty: Internal Medicine Provider: (Not yet assigned) Completed ALIS REILLY 08/07/25 1002 ED to floor bed request Once Completed ALIS REILLY 08/07/25 0810 Consult to Emergency General Surgery Once Provider: (Not yet assigned) Completed ALIS REILLY 08/07/25 06 Hepatitis C Antibody - ED Once Final result ALIS REILLY 08/07/25 06 ED Protocol - HIV 1/2 Antibody/Antigen Screen Once Final result ALIS REILLY 08/07/25 06 ED HIV 1/2 Antibody/Antigen Screen w/Reflex to HIV 1/2 Differentiation PROCEDURE ONCE Final result ALIS REILLY 08/07/25625 CBC w/diff STAT Final result ALIS REILLY 08/07/25625 PT-INR STAT Final result ALIS REILLY 08/07/25625 CMP STAT Final result ALIS REILLY 08/07/25625 Blood Culture (Aerobic/Anaerobet Set) STAT Preliminary result ALIS REILLY 08/07/25625 Blood Culture (Aerobic/Anaerobet Set) STAT Preliminary result ALIS REILLY 08/07/25625 Type and screen Start now Final result ALIS REILLY 08/07/25625 EKG now - STAT (adult) Once Final result ALIS REILLY 08/07/25625 Lactic acid, venous STAT Final result ALIS REILLY 08/07/25625 C-Reactive protein STAT Final result ALIS REILLY 08/07/25625 Sed rate, automated STAT Final result [facility] ED Course as of 08/07/251827 Sat Aug 07, 2025 06 Upon initial evaluation, patient is well-appearing and in no acute distress. Patient is hemodynamically stable, saturating well on room air, and grossly without neurological deficits. [DK] 0710 CT LLE w contrast showed subtle rounded ovioid lucency measuring approx 3.7mm involving the 4th middle phalynx suspicious for area of bony erosion/osteomyelitis. Soft tissue thickening and heterogeneity involving the soft tissues of the 4th digit suggesting edema. A few small linear and rounded lucencies involving the slightly more proximal soft tissues of the 4th digit suggest tiny areas ofsubcutaneous emphysema. [DK] 0713 Pt was given levaquin and clindamycin at OSH at 0200 [DK] 1003 I consulted emergency general surgery to evaluate the patient in the ED to rule out need for surgical debridement. Upon their assessment, they recommended no emergent surgical intervention was necessary. Recommended admission to medicine for IV antibiotics. At this time I consulted Hospital Medicine to evaluate the patient in the ED for left foot infection, concern for possible osteomyelitis. [DK] ED Course User Index [DK] Alis Reilly MD Clinical Impressions as of 08/07/251827 Cellulitis and abscess of toe of left foot Insulin dependent type 2 diabetes mellitus Social Determinates of Health Risks (including Economic Stability, Education and level of understanding, Healthcare access and quality and concerning social factors): None identified on this visit Ultimately, this patient was Was admitted (Admission) The primary encounter diagnosis was Cellulitis and abscess of toe of left foot. A diagnosis of Insulin dependent type 2 diabetes mellitus was also pertinent to this visit.. Patient believed to require admission for the listed diagnoses. The Internal Medicine service was consulted for admission and was agreeable to admit to Acute Floor (Med/Surg). ED Prescriptions None Disposition Admit Admitting/Attending Physician: ORIANA CASTELAN [[id number]] Provider Care Team: BUZZ [id number] [[id number]] Are they the primary team?: Yes [1] - [1] Past Medical History: Diagnosis Date Essential (primary) hypertension History of bladder cancer Hyperlipidemia, mixed Insulin dependent type 2 diabetes mellitus Major depressive disorder Osteoarthritis [2] Past Surgical History: Procedure Laterality Date TRANSURETHRAL RESECTION OF PROSTATE N/A [3] Family History Problem Relation Name Age of Onset Heart attack Mother Diabetes Mother Diabetes Father Heart attack Maternal Grandmother Diabetes Maternal Grandmother Heart attack Maternal Grandfather Diabetes Maternal Grandfather [4] Tobacco Use Smoking status: Never Smokeless tobacco: Never Substance Use Topics Alcohol use: No Drug use: Never [5] Allergies Allergen Reactions Codeine Itching Alis Reilly MD Resident 08/07/251827 Cosigned by Zay Dave MD at 08/12/2025 5:59 PM EST Associated attestation - Zay Dave MD - 08/12/2025 5:59 PM EST I saw and evaluated the patient with the resident/fellow. I discussed the case with the resident/fellow and agree with the findings and plan as documented. * ED Triage Notes - Carol Mayer RN - 08/07/2025 5:05 AM EST Patient arrives via EMS from [facility] for possible nec fasc in left 4th toe. Patient stepped on nail on . A&Ox4 on arrival. documented in this encounter Plan of Treatment Upcoming Encounters Date Type Department Care Team (Late st Contact Info) Description 09/24/2025 10:40 AM EST Office Visit [facility] [address] [place] [address] Bossman Haywood DO [address] [facility] [address] [place] [address] 09/30/2025 11:40 AM EST Office Visit [facility] [address] [place] [address] Renea Li, ILEANA [address] [place] [address] Pending Results Name Type Priority Associated Diagnoses Date /Time AFB Culture, Non Respiratory Source and Acid Fast Stain Microbiology Routine Cellulitis and abscess of toe of left foot 08/11/2025 1:00 PM EST AFB Culture, Non Respiratory Source and Acid Fast Stain Microbiology Routine Cellulitis and abscess of toe of left foot 08/11/2025 1:02 PM EST Scheduled Orders Name Type Priority Associated Diagnoses Orde r Schedule Wound Care Procedures Routine Cellulitis and abscess of toe of left foot 1 Occurrences starting 08/16/2025 until 02/17/2027 Scheduled Referrals Name Type Priority Associated Diagnoses Order Schedule Discharge Ambulatory referral to Wound Clinic Outpatient Referral Routine Cellulitis and abscess of toe of left foot 1 Occurrences starting 08/16/2025 until 02/17/2027 documented as of this encounter Procedures Procedure Name Priority Date/Time Associated Diagnosis Comments POCT GLUCOSE METER UNSOLICITED RESULTS Routine 08/16/2025 4:18 PM EST POCT GLUCOSE METER UNSOLICITED RESULTS Routine 08/16/2025 11:12 AM EST POCT GLUCOSE METER UNSOLICITED RESULTS Routine 08/16/2025 8:02 AM EST CBC WITH AUTO DIFFERENTIAL Timed 08/16/2025 2:57 AM EST C-REACTIVE PROTEIN, PLASMA Timed 08/16/2025 2:57 AM EST PHOSPHORUS, PLASMA Routine 08/16/2025 2: 57 AM EST MAGNESIUM, PLASMA Routine 08/16/2025 2:5 7 AM EST COMPREHENSIVE METABOLIC PANEL, PLASMA Timed 08/16/2025 2:57 AM EST POCT GLUCOSE METER UNSOLICITED RESULTS Routine 08/15/2025 7:29 PM EST POCT GLUCOSE METER UNSOLICITED RESULTS Routine 08/15/2025 4:03 PM EST POCT GLUCOSE METER UNSOLICITED RESULTS Routine 08/15/2025 11:00 AM EST POCT GLUCOSE METER UNSOLICITED RESULTS Routine 08/15/2025 7:14 AM EST POCT GLUCOSE METER UNSOLICITED RESULTS Routine 08/15/2025 3:10 AM EST PHOSPHORUS, PLASMA Routine 08/15/2025 1: 24 AM EST MAGNESIUM, PLASMA Routine 08/15/2025 1:2 4 AM EST BASIC METABOLIC PANEL, PLASMA Routine 08/15/2025 1:24 AM EST POCT GLUCOSE METER UNSOLICITED RESULTS Routine 08/14/2025 7:54 PM EST POCT GLUCOSE METER UNSOLICITED RESULTS Routine 08/14/2025 4:06 PM EST POCT GLUCOSE METER UNSOLICITED RESULTS Routine 08/14/2025 11:10 AM EST POCT GLUCOSE METER UNSOLICITED RESULTS Routine 08/14/2025 7:13 AM EST PHOSPHORUS, PLASMA Routine 08/14/2025 3: 18 AM EST MAGNESIUM, PLASMA Routine 08/14/2025 3:1 8 AM EST BASIC METABOLIC PANEL, PLASMA Routine 08/14/2025 3:18 AM EST POCT GLUCOSE METER UNSOLICITED RESULTS Routine 08/14/2025 3:09 AM EST POCT GLUCOSE METER UNSOLICITED RESULTS Routine 08/13/2025 8:10 PM EST POCT GLUCOSE METER UNSOLICITED RESULTS Routine 08/13/2025 4:05 PM EST POCT GLUCOSE METER UNSOLICITED RESULTS Routine 08/13/2025 11:50 AM EST VANCOMYCIN, PEAK, PLASMA Timed 08/13/2025 9:12 AM EST POCT GLUCOSE METER UNSOLICITED RESULTS Routine 08/13/2025 7:29 AM EST EXTRA TUBE LAVENDER TOP Routine 08/13/20 5:39 AM EST EXTRA TUBES Routine 08/13/2025 5:39 AM EST PHOSPHORUS, PLASMA Routine 08/13/2025 5: 39 AM EST MAGNESIUM, PLASMA Routine 08/13/2025 5:3 9 AM EST VANCOMYCIN, TROUGH, PLASMA Timed 08/13/2025 5:39 AM EST BASIC METABOLIC PANEL, PLASMA Routine 08/13/2025 5:39 AM EST POCT GLUCOSE METER UNSOLICITED RESULTS Routine 08/12/2025 7:44 PM EST POCT GLUCOSE METER UNSOLICITED RESULTS Routine 08/12/2025 4:06 PM EST POCT GLUCOSE METER UNSOLICITED RESULTS Routine 08/12/2025 11:02 AM EST POCT GLUCOSE METER UNSOLICITED RESULTS Routine 08/12/2025 7:14 AM EST CBC WITH AUTO DIFFERENTIAL Timed 08/12/2025 3:09 AM EST PHOSPHORUS, PLASMA Routine 08/12/2025 3: 09 AM EST MAGNESIUM, PLASMA Routine 08/12/2025 3:0 9 AM EST COMPREHENSIVE METABOLIC PANEL, PLASMA Timed 08/12/2025 3:09 AM EST POCT GLUCOSE METER UNSOLICITED RESULTS Routine 08/11/2025 9:41 PM EST POCT GLUCOSE METER UNSOLICITED RESULTS Routine 08/11/2025 7:37 PM EST POCT GLUCOSE METER UNSOLICITED RESULTS Routine 08/11/2025 4:03 PM EST FL LESS THAN 1 HOUR (NON-REPORTABLE) Routine 08/11/2025 1:30 PM EST POCT GLUCOSE METER UNSOLICITED RESULTS Routine 08/11/2025 1:17 PM EST FUNGAL CULTURE, TISSUE AND BACILIO Routine 08/11/2025 1:02 PM EST Cellulitis and abscess of toe of left foot BONE CULTURE AND GRAM STAIN Routine 08/11/2025 1:02 PM EST Cellulitis and abscess of toe of left foot AFB CULTURE, NON RESPIRATORY SOURCE AND ACID FAST STAIN Routine 08/11/2025 1:02 PM EST Cellulitis and abscess of toe of left foot ANAEROBIC CULTURE Routine 08/11/2025 1:0 2 PM EST Cellulitis and abscess of toe of left foot FUNGAL CULTURE, TISSUE AND BACILIO Routine 08/11/2025 1:00 PM EST Cellulitis and abscess of toe of left foot BONE CULTURE AND GRAM STAIN Routine 08/11/2025 1:00 PM EST Cellulitis and abscess of toe of left foot AFB CULTURE, NON RESPIRATORY SOURCE AND ACID FAST STAIN Routine 08/11/2025 1:00 PM EST Cellulitis and abscess of toe of left foot ANAEROBIC CULTURE Routine 08/11/2025 1:0 0 PM EST Cellulitis and abscess of toe of left foot SURGICAL PATHOLOGY EXAM Routine 08/11/20 12:57 PM EST Cellulitis and abscess of toe of left foot AMPUTATION, TOE 08/11/2025 12:00 PM EST Cellulitis and abscess of toe of left foot POCT GLUCOSE METER UNSOLICITED RESULTS Routine 08/11/2025 11:42 AM EST POCT GLUCOSE METER UNSOLICITED RESULTS Routine 08/11/2025 7:39 AM EST SEDIMENTATION RATE, AUTOMATED STAT 08/11/2025 3:30 AM EST CBC WITH AUTO DIFFERENTIAL Routine 08/11/2025 3:30 AM EST PHOSPHORUS, PLASMA Routine 08/11/2025 3: 30 AM EST MAGNESIUM, PLASMA Routine 08/11/2025 3:3 0 AM EST BASIC METABOLIC PANEL, PLASMA Routine 08/11/2025 3:30 AM EST POCT GLUCOSE METER UNSOLICITED RESULTS Routine 08/10/2025 7:27 PM EST POCT GLUCOSE METER UNSOLICITED RESULTS Routine 08/10/2025 4:15 PM EST POCT GLUCOSE METER UNSOLICITED RESULTS Routine 08/10/2025 11:13 AM EST POCT GLUCOSE METER UNSOLICITED RESULTS Routine 08/10/2025 7:34 AM EST VITAMIN D 25 HYDROXY Routine 08/10/2025 3:22 AM EST C-REACTIVE PROTEIN, PLASMA STAT Add-on 08/10/2025 3:22 AM EST PHOSPHORUS, PLASMA Routine 08/10/2025 3: 22 AM EST MAGNESIUM, PLASMA Routine 08/10/2025 3:2 2 AM EST POCT GLUCOSE METER UNSOLICITED RESULTS Routine 08/10/2025 3:13 AM EST POCT GLUCOSE METER UNSOLICITED RESULTS Routine 08/09/2025 9:11 PM EST POCT GLUCOSE METER UNSOLICITED RESULTS Routine 08/09/2025 5:01 PM EST VANCOMYCIN, PEAK, PLASMA Timed 08/09/2025 12:49 PM EST POCT GLUCOSE METER UNSOLICITED RESULTS Routine 08/09/2025 11:54 AM EST VANCOMYCIN, TROUGH, PLASMA Timed 08/09/2025 8:30 AM EST POCT GLUCOSE METER UNSOLICITED RESULTS Routine 08/09/2025 7:38 AM EST POCT GLUCOSE METER UNSOLICITED RESULTS Routine 08/09/2025 3:42 AM EST VITAMIN D, 1, 25-DIHYDROXY Routine 08/09/2025 2:30 AM EST CBC WITH AUTO DIFFERENTIAL Timed 08/09/2025 2:30 AM EST C-REACTIVE PROTEIN, PLASMA Timed 08/09/2025 2:30 AM EST PHOSPHORUS, PLASMA Routine 08/09/2025 2: 30 AM EST MAGNESIUM, PLASMA Routine 08/09/2025 2:3 0 AM EST COMPREHENSIVE METABOLIC PANEL, PLASMA Timed 08/09/2025 2:30 AM EST MR FOOT LEFT W AND WO IV CONTRAST Routine 08/09/2025 1:29 AM EST POCT GLUCOSE METER UNSOLICITED RESULTS Routine 08/08/2025 8:32 PM EST POCT GLUCOSE METER UNSOLICITED RESULTS Routine 08/08/2025 4:11 PM EST POCT GLUCOSE METER UNSOLICITED RESULTS Routine 08/08/2025 11:21 AM EST POCT GLUCOSE METER UNSOLICITED RESULTS Routine 08/08/2025 8:07 AM EST POCT GLUCOSE METER UNSOLICITED RESULTS Routine 08/08/2025 3:48 AM EST CBC WITH AUTO DIFFERENTIAL Routine 08/08/2025 1:15 AM EST BASIC METABOLIC PANEL, PLASMA Routine 08/08/2025 1:15 AM EST POCT GLUCOSE METER UNSOLICITED RESULTS Routine 08/07/2025 8:55 PM EST POCT GLUCOSE METER UNSOLICITED RESULTS Routine 08/07/2025 4:34 PM EST BLOOD CULTURE (AEROBIC/ANAEROBIC SET) STAT 08/07/2025 7:16 AM EST ED HIV 1/2 ANTIBODY/ANTIGEN SCREEN WITH REFLEX TO HIV I/II DIFFERENTIATION STAT 08/07/2025 6:42 AM EST ED PROTOCOL HIV 1/2 ANTIBODY/ANTIGEN SCREEN W/REFLEX TO HIV 1/2 ANTIBODY DIFFERENTIATION STAT 08/07/2025 6:42 AM EST LACTATE, VENOUS STAT 08/07/2025 6:42 AM EST HEPATITIS C ANTIBODY - ED W/REFLEX TO HCV QUANT PCR STAT 08/07/2025 6:42 AM EST BLOOD CULTURE (AEROBIC/ANAEROBIC SET) STAT 08/07/2025 6:42 AM EST SEDIMENTATION RATE, AUTOMATED STAT 08/07/2025 6:42 AM EST PROTHROMBIN TIME(PT) / INR STAT 08/07/2025 6:42 AM EST CBC WITH AUTO DIFFERENTIAL STAT 08/07/2025 6:42 AM EST TYPE AND SCREEN STAT 08/07/2025 6:42 AM EST C-REACTIVE PROTEIN, PLASMA STAT 08/07/2025 6:42 AM EST HEMOGLOBIN A1C Add-On 08/07/2025 6:42 AM EST COMPREHENSIVE METABOLIC PANEL, PLASMA STAT 08/07/2025 6:42 AM EST ECG ADULT STAT 08/07/2025 6:35 AM EST documented in this encounter Results * (ABNORMAL) POCT glucose meter (08/16/2025 4:18 PM EST) POCT Glucose 123(H) 74 - 99 mg/dL 08/16/2025 4:20 PM EST [facility] Comment:Accuracy of a glucos e result obtained from a capillary whole blood specimen relies upon adequate, non-compromised capillary blood flow. If the capillary glucose result is not consistent with the patient's clinical signs and symptoms, glucose testing should be repeated with either an arterial or venous sample on the glucometer or sent to the main labortory for testing. Comment 08/16/2025 4:20 PM EST [facility] Sticker Hand ID Carmen Reyes 4:20 PM EST [facility] Device ID [id number] 08/16/2025 4:20 PM EST [facility] Specimen Type POC Capillary 08/16/2025 4:20 PM EST [facility] Blood Capillary blood specimen / Unknown 08/16/2025 4:18 PM EST 08/16/2025 4:20 PM EST Uche Fonseca MD LAB POINT OF CARE TE ST DOCKED DEVICE UNSOLICITED RESULTS Final Result Performing Organization Address [facility] Co de Phone Number [facility] [address] [place] [address] * (ABNORMAL) POCT glucose meter (08/16/2025 11:12 AM EST) [facility] POCT Glucose 269(H) 74 - 99 mg/dL 08/16/2025 11:13 AM EST [facility] Comment:Accuracy of a glucos e result obtained from a capillary whole blood specimen relies upon adequate, non-compromised capillary blood flow. If the capillary glucose result is not consistent with the patient's clinical signs and symptoms, glucose testing should be repeated with either an arterial or venous sample on the glucometer or sent to the main labortory for testing. Comment 08/16/2025 11:13 AM EST [facility] Sticker Hand ID Carmen Reyes 11:13 AM EST [facility] Device ID [id number] 08/16/2025 11:13 AM EST [facility] Specimen Type POC Capillary 08/16/2025 11:13 AM EST [facility] Blood Capillary blood specimen / Unknown 08/16/2025 11:12 AM EST 08/16/2025 11:13 AM EST Uche Fonseca MD LAB POINT OF CARE TE ST DOCKED DEVICE UNSOLICITED RESULTS Final Result Performing Organization Address [facility] Co de Phone Number [facility] [address] [place] [address] * (ABNORMAL) POCT glucose meter (08/16/2025 8:02 AM EST) [facility] POCT Glucose 182(H) 74 - 99 mg/dL 08/16/2025 8:03 AM EST [facility] Comment:Accuracy of a glucos e result obtained from a capillary whole blood specimen relies upon adequate, non-compromised capillary blood flow. If the capillary glucose result is not consistent with the patient's clinical signs and symptoms, glucose testing should be repeated with either an arterial or venous sample on the glucometer or sent to the main labortory for testing. Comment 08/16/2025 8:03 AM EST [facility] Sticker Hand ID Carmen Reyes 8:03 AM EST [facility] Device ID [id number] 08/16/2025 8:03 AM EST [facility] Specimen Type POC Capillary 08/16/2025 8:03 AM EST [facility] Blood Capillary blood specimen / Unknown 08/16/2025 8:02 AM EST 08/16/2025 8:03 AM EST Uche Fonseca MD LAB POINT OF CARE TE ST DOCKED DEVICE UNSOLICITED RESULTS Final Result [facility] [address] [place] [address] * Phosphorus, Plasma (08/16/2025 2:57 AM EST) Phosphorus, Plasma 2.6 2.5 - 4.5 mg/dL 08/16/2025 3:[address] [facility] Blood Venous blood specimen / Unknown Venipuncture / Unknown 08/16/2025 2:57 AM EST 08/16/2025 3:05 AM EST us Fabienne Palm MD LAB BLOOD [place] [address] * Magnesium, Plasma (08/16/2025 2:57 AM EST) Magnesium, Plasma 2.1 1.9 - 2.4 mg/dL 08/16/2025 3:[address] [facility] Blood Venous blood specimen / Unknown Venipuncture / Unknown 08/16/2025 2:57 AM EST 08/16/2025 3:05 AM EST us Fabienne Palm MD LAB BLOOD ORDERABLES Coleen l Result [facility] [address] [place] [address] * (ABNORMAL) Comprehensive metabolic panel (08/16/2025 2:57 AM EST) Glucose, Plasma 198(H) 74 - 99 mg/dL 08/16/2025 3:36 AM [facility] BUN, Plasma 30(H) 7 - 21 mg/dL 08/16/2025 3:36 AM [facility] Creatinine, Plasma 1.03 0.70 - 1.20 mg/dL 08/16/2025 3:36 AM [facility] BUN/Creatinine Ratio 29 08/16/2025 3:36 AM [facility] Sodium, Plasma 133(L) 136 - 145 mmol/L 08/16/2025 3:36 AM [facility] Potassium, Plasma 4.1 3.6 - 4.9 mmol/L 08/16/2025 3:36 AM [facility] Chloride, Plasma 100 97 - 107 mmol/L 08/16/2025 3:36 AM [facility] CO2, Plasma 22 22 - 29 mmol/L 08/16/2025 3:36 AM [facility] Anion Gap 11 6 - 16 mmol/L 08/16/2025 3:36 AM [facility] Total Calcium, Plasma 9.5 8.9 - 10.2 mg/dL 08/16/2025 3:36 AM [facility] Total Protein 6.4 6.3 - 7.9 g/dL 08/16/2025 3:36 AM [facility] Albumin, Plasma 3.3(L) 3.5 - 5.2 g/dL 08/16/2025 3:36 AM [facility] AST, Plasma 57(H) 10 - 50 U/L 08/16/2025 3:36 AM [facility] ALT, Plasma 55(H) 10 - 50 U/L 08/16/2025 3:36 AM [facility] Alkaline Phosphatase, Plasma 90 40 - 115 U/L 08/16/2025 3:36 AM [facility] Total Bilirubin, Plasma <0.2(L) 0.2 - 1.1 mg/dL 08/16/2025 3:36 AM [facility] eGFRcr 83.7 mL/min/1.7 3m*2 08/16/2025 3:36 AM [facility] Comment:Reported eGFRcr in m L/min/1.73m2 is based the CKD-EPI 2020 equation that does not use a race coefficient. Blood Venous blood specimen / Unknown Venipuncture / Unknown 08/16/2025 2:57 AM EST 08/16/2025 3:05 AM EST us Mery TEJEDA LAB BLOOD ORDERABLES F inal Result [facility] [address] [place] [address] * (ABNORMAL) CBC and differential (08/16/2025 2:57 AM EST) WBC Count 6.91 3.70 - 10.30 10*3/uL LAB HEMATOLOGY METHOD 08/16/2025 3:[address] [facility] RBC Count 4.69 4.60 - 6.10 10*6/uL LAB HEMATOLOGY METHOD 08/16/2025 3:[address] [facility] HGB 13.7 13.7 - 17.5 g/dL LAB HEMATOLOGY METHOD 08/16/2025 3:[address] [facility] HCT 40.1 40.0 - 51.0 % LAB HEMATOLOGY METHOD 08/16/2025 3:[address] [facility] Platelet Count 214 155 - 369 10*3/uL LAB HEMATOLOGY METHOD 08/16/2025 3:[address] [facility] MCV 86 79 - 98 fL LAB HEMATOLOGY METHOD 08/16/2025 3:[address] [facility] MCH 29.2 26.0 - 32.0 pg LAB HEMATOLOGY METHOD 08/16/2025 3:[address] [facility] MCHC 34.2 30.7 - 35.5 g/dL LAB HEMATOLOGY METHOD 08/16/2025 3:[address] [facility] RDW 11.4(L) 11.5 - 14.5 % LAB HEMATOLOGY METHOD 08/16/2025 3:[address] [facility] MPV 11.8 8.8 - 12.5 fL LAB HEMATOLOGY METHOD 08/16/2025 3:[address] [facility] nRBC 0.0 <=0.0 per 100 WBCs LAB HEMATOLOGY METHOD 08/16/2025 3:[address] [facility] Differential Type Automated LAB HEMATOLOGY METHOD 08/16/2025 3:17 AM [facility] Neutrophils % 59 % LAB HEMATOLOGY METHOD 08/16/2025 3:17 AM [facility] LAB Lymphocytes % 24 % LAB HEMATOLOGY METHOD 08/16/2025 3:17 AM [facility] Monocytes % 11 % LAB HEMATOLOGY METHOD 08/16/2025 3:[address] [facility] Eosinophils % 4 % LAB HEMATOLOGY METHOD 08/16/2025 3:[address] [facility] Basophils % 1 % LAB HEMATOLOGY METHOD 08/16/2025 3:[address] [facility] Immature Granulocytes % 1 % LAB HEMATOLOGY METHOD 08/16/2025 3:[address] [facility] Neutrophils Absolute 4.13 1.60 - 6.10 10*3/uL LAB HEMATOLOGY METHOD 08/16/2025 3:[address] [facility] Lymphocytes Absolute 1.66 1.20 - 3.90 10*3/uL LAB HEMATOLOGY METHOD 08/16/2025 3:[address] [facility] Monocytes Absolute 0.75 0.30 - 0.90 10*3/uL LAB HEMATOLOGY METHOD 08/16/2025 3:17 AM [facility] Eosinophils Absolute 0.25 0.00 - 0.50 10*3/uL LAB HEMATOLOGY METHOD 08/16/2025 3:[address] [facility] Basophils Absolute 0.08 0.00 - 0.10 10*3/uL LAB HEMATOLOGY METHOD 08/16/2025 3:17 AM [facility] LAB Immature Granulocytes Absolute 0.04 0.00 - 0.06 10*3/uL LAB HEMATOLOGY METHOD 08/16/2025 3:17 AM [facility] Blood Venous blood specimen / Unknown Venipuncture / Unknown 08/16/2025 2:57 AM EST 08/16/2025 3:06 AM EST [facility] - 08/16/2025 3:17 AM EST Therapeutic decision making should be based on absolute values, rather than percentages. us Mery TEJEDA LAB BLOOD ORDERABLES F inal Result [facility] [address] [place] [address] * (ABNORMAL) C-Reactive Protein, Plasma (08/16/2025 2:57 AM EST) [facility] CRP, Plasma 8.6(H) <=8.0 mg/L 08/16/2025 3:[address] [facility] Blood Venous blood specimen / Unknown Venipuncture / Unknown 08/16/2025 2:57 AM EST 08/16/2025 3:[address] [facility] - 08/16/2025 3:36 AM EST This CRP test is appropriate for assessment of infection, systemic inflammation and/or tissue injury. To assess cardiovascular disease risk order high sensitivity CRP (CRPH). us Mery TEJEDA LAB BLOOD ORDERABLES F inal Result [facility] [address] [place] [address] * (ABNORMAL) POCT glucose meter (08/15/2025 7:29 PM EST) [facility] POCT Glucose 260(H) 74 - 99 mg/dL 08/15/2025 7:30 PM EST [facility] Comment:Accuracy of a glucos e result obtained from a capillary whole blood specimen relies upon adequate, non-compromised capillary blood flow. If the capillary glucose result is not consistent with the patient's clinical signs and symptoms, glucose testing should be repeated with either an arterial or venous sample on the glucometer or sent to the main labortory for testing. Comment 08/15/2025 7:30 PM EST [facility] Sticker Hand ID Carmen 08/15/2025 7:30 PM EST [facility] Device ID [id number] 08/15/2025 7:30 PM EST [facility] Specimen Type POC Capillary 08/15/2025 7:30 PM EST [facility] Blood Capillary blood specimen / Unknown 08/15/2025 7:29 PM EST 08/15/2025 7:30 PM EST us Uche Fonseca MD LAB POINT OF CARE TE ST DOCKED DEVICE UNSOLICITED RESULTS Final Result Performing Organization Address City/[facility]/ZIP Co de Phone Number [facility] [address] [place] [address] * (ABNORMAL) POCT glucose meter (08/15/2025 4:03 PM EST) Pathologist [facility] POCT Glucose 195(H) 74 - 99 mg/dL 08/15/2025 4:05 PM EST [facility] Comment:Accuracy of a glucos e result obtained from a capillary whole blood specimen relies upon adequate, non-compromised capillary blood flow. If the capillary glucose result is not consistent with the patient's clinical signs and symptoms, glucose testing should be repeated with either an arterial or venous sample on the glucometer or sent to the main labortory for testing. Comment 08/15/2025 4:05 PM EST [facility] Sticker Hand ID Mare Dunne 08/15/2025 4:05 PM EST [facility] LAB Device ID [id number] 08/15/2025 4:05 PM EST [facility] Specimen Type POC Capillary 08/15/2025 4:05 PM EST [facility] Blood Capillary blood specimen / Unknown 08/15/2025 4:03 PM EST 08/15/2025 4:05 PM EST Uche Fonseca MD LAB POINT OF CARE TE ST DOCKED DEVICE UNSOLICITED RESULTS Final Result Performing Organization Address City/[facility] Co de Phone Number [facility] [address] [place] [address] * (ABNORMAL) POCT glucose meter (08/15/2025 11:00 AM EST) [facility] POCT Glucose 224(H) 74 - 99 mg/dL 08/15/2025 11:01 AM EST [facility] Comment:Accuracy of a glucos e result obtained from a capillary whole blood specimen relies upon adequate, non-compromised capillary blood flow. If the capillary glucose result is not consistent with the patient's clinical signs and symptoms, glucose testing should be repeated with either an arterial or venous sample on the glucometer or sent to the main labortory for testing. Comment 08/15/2025 11:01 AM EST [facility] Sticker Hand ID Mare Dunne 08/15/2025 11:01 AM EST [facility] Device ID [id number] 08/15/2025 11:01 AM EST [facility] Specimen Type POC Capillary 08/15/2025 11:01 AM EST [facility] Blood Capillary blood specimen / Unknown 08/15/2025 11:00 AM EST 08/15/2025 11:01 AM EST Uche Fonseca MD LAB POINT OF CARE TE ST DOCKED DEVICE UNSOLICITED RESULTS Final Result Performing Organization Address City/[facility] de Phone Number [facility] [address] [place] [address] * (ABNORMAL) POCT glucose meter (08/15/2025 7:14 AM EST) POCT Glucose 192(H) 74 - 99 mg/dL 08/15/2025 7:16 AM EST [facility] Comment:Accuracy of a glucos e result obtained from a capillary whole blood specimen relies upon adequate, non-compromised capillary blood flow. If the capillary glucose result is not consistent with the patient's clinical signs and symptoms, glucose testing should be repeated with either an arterial or venous sample on the glucometer or sent to the main labortory for testing. Comment 08/15/2025 7:16 AM EST [facility] Sticker Hand ID Mare Dunne 08/15/2025 7:16 AM EST [facility] LAB Device ID [id number] 08/15/2025 7:16 AM EST [facility] Specimen Type POC Capillary 08/15/2025 7:16 AM EST [facility] Blood Capillary blood specimen / Unknown 08/15/2025 7:14 AM EST 08/15/2025 7:16 AM EST Uche Fonseca MD LAB POINT OF CARE TE ST DOCKED DEVICE UNSOLICITED RESULTS Final Result Performing Organization Address City/[facility] Co de Phone Number [facility] [address] [place] [address] * (ABNORMAL) POCT glucose meter (08/15/2025 3:10 AM EST) POCT Glucose 242(H) 74 - 99 mg/dL 08/15/2025 3:12 AM EST [facility] Comment:Accuracy of a glucos e result obtained from a capillary whole blood specimen relies upon adequate, non-compromised capillary blood flow. If the capillary glucose result is not consistent with the patient's clinical signs and symptoms, glucose testing should be repeated with either an arterial or venous sample on the glucometer or sent to the main labortory for testing. Comment 08/15/2025 3:12 AM EST [facility] Sticker Hand ID Willian Hicks 3:12 AM EST [facility] Device ID [id number] 08/15/2025 3:12 AM EST [facility] Specimen Type POC Capillary 08/15/2025 3:12 AM EST [facility] Blood Capillary blood specimen / Unknown 08/15/2025 3:10 AM EST 08/15/2025 3:12 AM EST Uche Fonseca MD LAB POINT OF CARE TE ST DOCKED DEVICE UNSOLICITED RESULTS Final Result Performing Organization Address City/[facility]/ZIP Co de Phone Number [facility] [address] [place] [address] * Phosphorus, Plasma (08/15/2025 1:24 AM EST) Phosphorus, Plasma 3.2 2.5 - 4.5 mg/dL 08/15/2025 1:[address] [facility] Blood Venous blood specimen / Unknown Venipuncture / Unknown 08/15/2025 1:24 AM EST 08/15/2025 1:28 AM EST Fabienne Palm MD LAB BLOOD ORDERABLES Coleen l Result [facility] [address] [place] [address] * Magnesium, Plasma (08/15/2025 1:24 AM EST) Magnesium, Plasma 2.0 1.9 - 2.4 mg/dL 08/15/2025 1:[address] [facility] Blood Venous blood specimen / Unknown Venipuncture / Unknown 08/15/2025 1:24 AM EST 08/15/2025 1:28 AM EST us Fabienne Palm MD LAB BLOOD ORDERABLES Coleen santizo Result [facility] [address] [place] [address] * (ABNORMAL) Basic metabolic panel (08/15/2025 1:24 AM EST) Glucose, Plasma 255(H) 74 - 99 mg/dL 08/15/2025 1:[address] [facility] BUN, Plasma 35(H) 7 - 21 mg/dL 08/15/2025 1:[address] [facility] Creatinine, Plasma 1.21(H) 0.70 - 1.20 mg/dL 08/15/2025 1:[address] [facility] BUN/Creatinine Ratio 29 08/15/2025 1:[address] [facility] Sodium, Plasma 134(L) 136 - 145 mmol/L 08/15/2025 1:[address] [facility] Potassium, Plasma 4.6 3.6 - 4.9 mmol/L 08/15/2025 1:[address] [facility] Chloride, Plasma 99 97 - 107 mmol/L 08/15/2025 1:[address] [facility] CO2, Plasma 22 22 - 29 mmol/L 08/15/2025 1:[address] [facility] Anion Gap 13 6 - 16 mmol/L 08/15/2025 1:[address] [facility] Total Calcium, Plasma 9.3 8.9 - 10.2 mg/dL 08/15/2025 1:[address] [facility] eGFRcr 69.0 mL/min/1.7 3m*2 08/15/2025 1:[address] [facility] Comment:Reported eGFRcr in m L/min/1.73m2 is based the CKD-EPI 2020 equation that does not use a race coefficient. Blood Venous blood specimen / Unknown Venipuncture / Unknown 08/15/2025 1:24 AM EST 08/15/2025 1:28 AM EST us Uche Fonseca MD LAB BLOOD ORDERABLES Final Re sult Performing Organization Address City/[facility]/ZIP Co de Phone Number [facility] [address] [place] [address] * (ABNORMAL) POCT glucose meter (08/14/2025 7:54 PM EST) Pathologist [facility] POCT Glucose 310(H) 74 - 99 mg/dL 08/14/2025 7:55 PM EST [facility] Comment:Accuracy of a glucos e result obtained from a capillary whole blood specimen relies upon adequate, non-compromised capillary blood flow. If the capillary glucose result is not consistent with the patient's clinical signs and symptoms, glucose testing should be repeated with either an arterial or venous sample on the glucometer or sent to the main labortory for testing. Comment 08/14/2025 7:55 PM EST [facility] Sticker Hand ID Willian Hicks 7:55 PM EST [facility] Device ID [id number] 08/14/2025 7:55 PM EST [facility] Specimen Type POC Capillary 08/14/2025 7:55 PM EST [facility] Blood Capillary blood specimen / Unknown 08/14/2025 7:54 PM EST 08/14/2025 7:55 PM EST Uche Fonseca MD LAB POINT OF CARE TE ST DOCKED DEVICE UNSOLICITED RESULTS Final Result Performing Organization Address City/[facility]/ZIP Co de Phone Number [facility] [address] [place] [address] * (ABNORMAL) POCT glucose meter (08/14/2025 4:06 PM EST) Pathologist [facility] POCT Glucose 284(H) 74 - 99 mg/dL 08/14/2025 4:08 PM EST [facility] Comment:Accuracy of a glucos e result obtained from a capillary whole blood specimen relies upon adequate, non-compromised capillary blood flow. If the capillary glucose result is not consistent with the patient's clinical signs and symptoms, glucose testing should be repeated with either an arterial or venous sample on the glucometer or sent to the main labortory for testing. Comment 08/14/2025 4:08 PM EST [facility] Sticker Hand ID Joey Rutledge 08/14/2025 4:08 PM EST [facility] Device ID [id number] 08/14/2025 4:08 PM EST [facility] Specimen Type POC Capillary 08/14/2025 4:08 PM EST [facility] Blood Capillary blood specimen / Unknown 08/14/2025 4:06 PM EST 08/14/2025 4:08 PM EST Uche Fonseca MD LAB POINT OF CARE TE ST DOCKED DEVICE UNSOLICITED RESULTS Final Result Performing Organization Address City/[facility] Co de Phone Number [facility] [address] [place] [address] * (ABNORMAL) POCT glucose meter (08/14/2025 11:10 AM EST) POCT Glucose 245(H) 74 - 99 mg/dL 08/14/2025 11:12 AM EST [facility] Comment:Accuracy of a glucos e result obtained from a capillary whole blood specimen relies upon adequate, non-compromised capillary blood flow. If the capillary glucose result is not consistent with the patient's clinical signs and symptoms, glucose testing should be repeated with either an arterial or venous sample on the glucometer or sent to the main labortory for testing. Comment 08/14/2025 11:12 AM EST [facility] Sticker Hand ID Joey Rutledge 08/14/2025 11:12 AM EST [facility] Device ID [id number] 08/14/2025 11:12 AM EST [facility] Specimen Type POC Capillary 08/14/2025 11:12 AM EST [facility] Blood Capillary blood specimen / Unknown 08/14/2025 11:10 AM EST 08/14/2025 11:12 AM EST Uche Fonseca MD LAB POINT OF CARE TE ST DOCKED DEVICE UNSOLICITED RESULTS Final Result Performing Organization Address City/[facility] Co de Phone Number [facility] [address] [place] [address] * (ABNORMAL) POCT glucose meter (08/14/2025 7:13 AM EST) POCT Glucose 206(H) 74 - 99 mg/dL 08/14/2025 7:15 AM EST [facility] Comment:Accuracy of a glucos e result obtained from a capillary whole blood specimen relies upon adequate, non-compromised capillary blood flow. If the capillary glucose result is not consistent with the patient's clinical signs and symptoms, glucose testing should be repeated with either an arterial or venous sample on the glucometer or sent to the main labortory for testing. Comment 08/14/2025 7:15 AM EST [facility] Sticker Hand ID Joey Rutledge 08/14/2025 7:15 AM EST [facility] Device ID [id number] 08/14/2025 7:15 AM EST [facility] Specimen Type POC Capillary 08/14/2025 7:15 AM EST [facility] Blood Capillary blood specimen / Unknown 08/14/2025 7:13 AM EST 08/14/2025 7:15 AM EST Uche Fonseca MD LAB POINT OF CARE TE ST DOCKED DEVICE UNSOLICITED RESULTS Final Result Performing Organization Address City/[facility]/ZIP Co de Phone Number [facility] [address] [place] [address] * (ABNORMAL) Phosphorus, Plasma (08/14/2025 3:18 AM EST) Phosphorus, Plasma 2.4(L) 2.5 - 4.5 mg/dL 08/14/2025 3:[address] [facility] Blood Venous blood specimen / Unknown Venipuncture / Unknown 08/14/2025 3:18 AM EST 08/14/2025 3:23 AM EST Fabienne Palm MD LAB BLOOD ORDERABLES Coleen l Result [facility] [address] [place] [address] * Magnesium, Plasma (08/14/2025 3:18 AM EST) Magnesium, Plasma 2.0 1.9 - 2.4 mg/dL 08/14/2025 3:[address] [facility] Blood Venous blood specimen / Unknown Venipuncture / Unknown 08/14/2025 3:18 AM EST 08/14/2025 3:23 AM EST us Fabienne Palm MD LAB BLOOD ORDERABLES Coleen santizo Result [facility] [address] [place] [address] * (ABNORMAL) Basic metabolic panel (08/14/2025 3:18 AM EST) Glucose, Plasma 195(H) 74 - 99 mg/dL 08/14/2025 3:[address] [facility] BUN, Plasma 24(H) 7 - 21 mg/dL 08/14/2025 3:[address] [facility] Creatinine, Plasma 1.15 0.70 - 1.20 mg/dL 08/14/2025 3:[address] [facility] BUN/Creatinine Ratio 21 08/14/2025 3:[address] [facility] Sodium, Plasma 133(L) 136 - 145 mmol/L 08/14/2025 3:[address] [facility] Potassium, Plasma 4.1 3.6 - 4.9 mmol/L 08/14/2025 3:[address] [facility] Chloride, Plasma 99 97 - 107 mmol/L 08/14/2025 3:[address] [facility] CO2, Plasma 23 22 - 29 mmol/L 08/14/2025 3:[address] [facility] Anion Gap 11 6 - 16 mmol/L 08/14/2025 3:[address] [facility] Total Calcium, Plasma 9.8 8.9 - 10.2 mg/dL 08/14/2025 3:[address] [facility] eGFRcr 73.3 mL/min/1.7 3m*2 08/14/2025 3:[address] [facility] Comment:Reported eGFRcr in m L/min/1.73m2 is based the CKD-EPI 2020 equation that does not use a race coefficient. Blood Venous blood specimen / Unknown Venipuncture / Unknown 08/14/2025 3:18 AM EST 08/14/2025 3:23 AM EST Uche Fonseca MD LAB BLOOD ORDERABLES Final Re sult [facility] [address] [place] [address] * (ABNORMAL) POCT glucose meter (08/14/2025 3:09 AM EST) POCT Glucose 215(H) 74 - 99 mg/dL 08/14/2025 3:21 AM EST [facility] Comment:Accuracy of a glucos e result obtained from a capillary whole blood specimen relies upon adequate, non-compromised capillary blood flow. If the capillary glucose result is not consistent with the patient's clinical signs and symptoms, glucose testing should be repeated with either an arterial or venous sample on the glucometer or sent to the main labortory for testing. Comment 08/14/2025 3:21 AM EST [facility] Sticker Hand ID Garry Gonzales 08/14/2025 3:21 AM EST [facility] Device ID [id number] 08/14/2025 3:21 AM EST [facility] Specimen Type POC Capillary 08/14/2025 3:21 AM EST [facility] Blood Capillary blood specimen / Unknown 08/14/2025 3:09 AM EST 08/14/2025 3:21 AM EST Uche Fonseca MD LAB POINT OF CARE TE ST DOCKED DEVICE UNSOLICITED RESULTS Final Result Performing Organization Address City/[facility] Co de Phone Number [facility] [address] [place] [address] * (ABNORMAL) POCT glucose meter (08/13/2025 8:10 PM EST) POCT Glucose 257(H) 74 - 99 mg/dL 08/13/2025 8:16 PM EST [facility] Comment:Accuracy of a glucos e result obtained from a capillary whole blood specimen relies upon adequate, non-compromised capillary blood flow. If the capillary glucose result is not consistent with the patient's clinical signs and symptoms, glucose testing should be repeated with either an arterial or venous sample on the glucometer or sent to the main labortory for testing. Comment 08/13/2025 8:16 PM EST [facility] Sticker Hand ID Garry Gonzales 08/13/2025 8:16 PM EST [facility] Device ID [id number] 08/13/2025 8:16 PM EST [facility] Specimen Type POC Capillary 08/13/2025 8:16 PM EST [facility] Blood Capillary blood specimen / Unknown 08/13/2025 8:10 PM EST 08/13/2025 8:16 PM EST Uche Fonseca MD LAB POINT OF CARE TE ST DOCKED DEVICE UNSOLICITED RESULTS Final Result Performing Organization Address City/[facility] Co de Phone Number [facility] [address] [place] [address] * (ABNORMAL) POCT glucose meter (08/13/2025 4:05 PM EST) POCT Glucose 227(H) 74 - 99 mg/dL 08/13/2025 4:06 PM EST [facility] Comment:Accuracy of a glucos e result obtained from a capillary whole blood specimen relies upon adequate, non-compromised capillary blood flow. If the capillary glucose result is not consistent with the patient's clinical signs and symptoms, glucose testing should be repeated with either an arterial or venous sample on the glucometer or sent to the main labortory for testing. Comment 08/13/2025 4:06 PM EST [facility] Sticker Hand ID Amisha Lomas 08/13/2025 4:06 PM EST [facility] Device ID [id number] 08/13/2025 4:06 PM EST [facility] Specimen Type POC Capillary 08/13/2025 4:06 PM EST [facility] Blood Capillary blood specimen / Unknown 08/13/2025 4:05 PM EST 08/13/2025 4:06 PM EST Uche Fonseca MD LAB POINT OF CARE TE ST DOCKED DEVICE UNSOLICITED RESULTS Final Result Performing Organization Address City/[facility]/ZIP Co de Phone Number [facility] [address] [place] [address] * (ABNORMAL) POCT glucose meter (08/13/2025 11:50 AM EST) POCT Glucose 252(H) 74 - 99 mg/dL 08/13/2025 11:52 AM EST [facility] Comment:Accuracy of a glucos e result obtained from a capillary whole blood specimen relies upon adequate, non-compromised capillary blood flow. If the capillary glucose result is not consistent with the patient's clinical signs and symptoms, glucose testing should be repeated with either an arterial or venous sample on the glucometer or sent to the main labortory for testing. Comment 08/13/2025 11:52 AM EST [facility] Sticker Hand ID Amisha Lomas 08/13/2025 11:52 AM EST [facility] Device ID [id number] 08/13/2025 11:52 AM EST [facility] Specimen Type POC Capillary 08/13/2025 11:52 AM EST [facility] Blood Capillary blood specimen / Unknown 08/13/2025 11:50 AM EST 08/13/2025 11:52 AM EST Uche Fonseca MD LAB POINT OF CARE TE ST DOCKED DEVICE UNSOLICITED RESULTS Final Result Performing Organization Address [facility] Co de Phone Number [facility] [address] [place] [id number] * Vancomycin, Peak, Plasma Please draw ~2 hours after 0600 dose of vancomycin finishes infusing. Consider obtaining level via peripheral stick. If peripheral stick is not feasible, please ensure that line is flushed well prior to drawing level. Than... (08/13/2025 9:12 AM EST) Vancomycin, Peak, Plasma 33.3 20.0 - 40.0 ug/mL 08/13/2025 9:[address] [facility] Blood Venous blood specimen / Unknown Venipuncture / Unknown 08/13/2025 9:12 AM EST 08/13/2025 9:[address] [facility] - 08/13/2025 9:44 AM EST Therapeutic Peak level: 20-40ug/mL Supra-therapeutic Peak level: >40 ug/mL Uche Fonseca MD LAB BLOOD ORDERABLES Final Re sult Performing Organization Address City/[facility]/ZIP Co de Phone Number [facility] [address] [place] [address] * (ABNORMAL) POCT glucose meter (08/13/2025 7:29 AM EST) [facility] POCT Glucose 218(H) 74 - 99 mg/dL 08/13/2025 7:30 AM EST [facility] Comment:Accuracy of a glucos e result obtained from a capillary whole blood specimen relies upon adequate, non-compromised capillary blood flow. If the capillary glucose result is not consistent with the patient's clinical signs and symptoms, glucose testing should be repeated with either an arterial or venous sample on the glucometer or sent to the main labortory for testing. Comment 08/13/2025 7:30 AM EST [facility] Sticker Hand ID Amisha Lomas 08/13/2025 7:30 AM EST [facility] Device ID [id number] 08/13/2025 7:30 AM EST [facility] Specimen Type POC Capillary 08/13/2025 7:30 AM EST [facility] Blood Capillary blood specimen / Unknown 08/13/2025 7:29 AM EST 08/13/2025 7:30 AM EST Uche Fonseca MD LAB POINT OF CARE TE ST DOCKED DEVICE UNSOLICITED RESULTS Final Result Performing Organization Address City/[facility]/ZIP Co de Phone Number [facility] [address] [place] [address] * Lavender Top (08/13/2025 5:39 AM EST) [facility] Extra Hold for add-ons 08/13/2025 8:[address] [facility] Comment:Auto resulted. Blood Venous blood specimen / Unknown 08/13/2025 5:39 AM EST 08/13/2025 5:44 AM EST Uche Fonseca MD LAB BLOOD ORDERABLES Final Re sult [facility] [address] [place] [address] * (ABNORMAL) Phosphorus, Plasma (08/13/2025 5:39 AM EST) [facility] Phosphorus, Plasma 2.0(L) 2.5 - 4.5 mg/dL 08/13/2025 6:[address] [facility] Blood Venous blood specimen / Unknown Venipuncture / Unknown 08/13/2025 5:39 AM EST 08/13/2025 5:46 AM EST us Fabienne Palm MD LAB BLOOD ORDERABLES Coleen l Result Performing Organization Address City/[facility]/ZIP Co de Phone Number [facility] [address] [place] [address] * Magnesium, Plasma (08/13/2025 5:39 AM EST) Magnesium, Plasma 2.1 1.9 - 2.4 mg/dL 08/13/2025 6:[address] [facility] Blood Venous blood specimen / Unknown Venipuncture / Unknown 08/13/2025 5:39 AM EST 08/13/2025 5:46 AM EST Fabienne Palm MD LAB BLOOD ORDERABLES Coleen l Result Performing Organization Address City/[facility] [place] [address] * Vancomycin, Trough, Plasma Please draw ~30 minutes prior to dose due at 0600 on 08/13. Please do NOT hold dose awaiting level to return. Consider obtaining level via peripheral stick. If peripheral stick is not feasible, please ensure that line i... (08/13/2025 5:39 AM EST) Vancomycin, Trough, Plasma 13.7 10.0 - 20.0 ug/mL 08/13/2025 6:[address] [facility] Blood Venous blood specimen / Unknown Venipuncture / Unknown 08/13/2025 5:39 AM EST 08/13/2025 5:[address] [facility] - 08/13/2025 6:15 AM EST Therapeutic Trough level: 10-20ug/mL Supra-therapeutic Trough level: >20 ug/mL Uche Fonseca MD LAB BLOOD ORDERABLES Final Re sult Performing Organization Address City/[facility]/ZIP Co de Phone Number [facility] [address] [place] [address] * (ABNORMAL) Basic metabolic panel (08/13/2025 5:39 AM EST) Glucose, Plasma 188(H) 74 - 99 mg/dL 08/13/2025 6:[address] [facility] BUN, Plasma 22(H) 7 - 21 mg/dL 08/13/2025 6:[address] [facility] Creatinine, Plasma 1.08 0.70 - 1.20 mg/dL 08/13/2025 6:[address] [facility] BUN/Creatinine Ratio 20 08/13/2025 6:[address] [facility] Sodium, Plasma 136 136 - 145 mmol/L 08/13/2025 6:[address] [facility] Potassium, Plasma 4.7 3.6 - 4.9 mmol/L 08/13/2025 6:[address] [facility] Chloride, Plasma 102 97 - 107 mmol/L 08/13/2025 6:[address] [facility] CO2, Plasma 24 22 - 29 mmol/L 08/13/2025 6:[address] [facility] Anion Gap 10 6 - 16 mmol/L 08/13/2025 6:[address] [facility] Total Calcium, Plasma 9.7 8.9 - 10.2 mg/dL 08/13/2025 6:[address] [facility] eGFRcr 79.1 mL/min/1.7 3m*2 08/13/2025 6:[address] [facility] Comment:Reported eGFRcr in m L/min/1.73m2 is based the CKD-EPI 2020 equation that does not use a race coefficient. Blood Venous blood specimen / Unknown Venipuncture / Unknown 08/13/2025 5:39 AM EST 08/13/2025 5:46 AM EST Uche Fonseca MD LAB BLOOD ORDERABLES Final Re sult Performing Organization Address City/[facility]/ZIP Co de Phone Number [facility] [address] [place] [address] * (ABNORMAL) POCT glucose meter (08/12/2025 7:44 PM EST) Pathologist [facility] POCT Glucose 195(H) 74 - 99 mg/dL 08/12/2025 7:46 PM EST [facility] Comment:Accuracy of a glucos e result obtained from a capillary whole blood specimen relies upon adequate, non-compromised capillary blood flow. If the capillary glucose result is not consistent with the patient's clinical signs and symptoms, glucose testing should be repeated with either an arterial or venous sample on the glucometer or sent to the main labortory for testing. Comment 08/12/2025 7:46 PM EST [facility] Sticker Hand ID Ana Ramirez 025 7:46 PM EST [facility] Device ID [id number] 08/12/2025 7:46 PM EST [facility] Specimen Type POC Capillary 08/12/2025 7:46 PM EST [facility] Blood Capillary blood specimen / Unknown 08/12/2025 7:44 PM EST 08/12/2025 7:46 PM EST Uche Fonseca MD LAB POINT OF CARE TE ST DOCKED DEVICE UNSOLICITED RESULTS Final Result [facility] [address] [place] [address] * (ABNORMAL) POCT glucose meter (08/12/2025 4:06 PM EST) [facility] POCT Glucose 236(H) 74 - 99 mg/dL 08/12/2025 4:07 PM EST [facility] Comment:Accuracy of a glucos e result obtained from a capillary whole blood specimen relies upon adequate, non-compromised capillary blood flow. If the capillary glucose result is not consistent with the patient's clinical signs and symptoms, glucose testing should be repeated with either an arterial or venous sample on the glucometer or sent to the main labortory for testing. Comment 08/12/2025 4:07 PM EST [facility] Sticker Hand ID Solo Boyd 08/12/2025 4:07 PM EST [facility] Device ID [id number] 08/12/2025 4:07 PM EST [facility] Specimen Type POC Capillary 08/12/2025 4:07 PM EST [facility] Blood Capillary blood specimen / Unknown 08/12/2025 4:06 PM EST 08/12/2025 4:07 PM EST Uche Fonseca MD LAB POINT OF CARE TE ST DOCKED DEVICE UNSOLICITED RESULTS Final Result Performing Organization Address City/[facility] Co de Phone Number [facility] [address] [place] [address] * (ABNORMAL) POCT glucose meter (08/12/2025 11:02 AM EST) POCT Glucose 180(H) 74 - 99 mg/dL 08/12/2025 11:03 AM EST [facility] Comment:Accuracy of a glucos e result obtained from a capillary whole blood specimen relies upon adequate, non-compromised capillary blood flow. If the capillary glucose result is not consistent with the patient's clinical signs and symptoms, glucose testing should be repeated with either an arterial or venous sample on the glucometer or sent to the main labortory for testing. Comment 08/12/2025 11:03 AM EST [facility] Sticker Hand ID [email or web address] 08/12/2025 11:03 AM EST [facility] Device ID [id number] 08/12/2025 11:03 AM EST [facility] Specimen Type POC Capillary 08/12/2025 11:03 AM EST [facility] Blood Capillary blood specimen / Unknown 08/12/2025 11:02 AM EST 08/12/2025 11:03 AM EST Uche Fonseca MD LAB POINT OF CARE TE ST DOCKED DEVICE UNSOLICITED RESULTS Final Result [facility] [address] [place] [address] * (ABNORMAL) POCT glucose meter (08/12/2025 7:14 AM EST) POCT Glucose 185(H) 74 - 99 mg/dL 08/12/2025 7:16 AM EST [facility] Comment:Accuracy of a glucos e result obtained from a capillary whole blood specimen relies upon adequate, non-compromised capillary blood flow. If the capillary glucose result is not consistent with the patient's clinical signs and symptoms, glucose testing should be repeated with either an arterial or venous sample on the glucometer or sent to the main labortory for testing. Comment 08/12/2025 7:16 AM EST [facility] Sticker Hand ID Solo Boyd 08/12/2025 7:16 AM EST [facility] Device ID [id number] 08/12/2025 7:16 AM EST [facility] Specimen Type POC Capillary 08/12/2025 7:16 AM EST [facility] Blood Capillary blood specimen / Unknown 08/12/2025 7:14 AM EST 08/12/2025 7:16 AM EST us Uche Fonseca MD LAB POINT OF CARE TE ST DOCKED DEVICE UNSOLICITED RESULTS Final Result Performing Organization Address City/[facility] Co de Phone Number [facility] [address] [place] [address] * Phosphorus, Plasma (08/12/2025 3:09 AM EST) Phosphorus, Plasma 2.7 2.5 - 4.5 mg/dL 08/12/2025 3:[address] [facility] Blood Venous blood specimen / Unknown Venipuncture / Unknown 08/12/2025 3:09 AM EST 08/12/2025 3:15 AM EST us Fabienne Palm MD LAB BLOOD ORDERABLES Coleen l Result [facility] [address] [place] [address] * Magnesium, Plasma (08/12/2025 3:09 AM EST) Magnesium, Plasma 2.0 1.9 - 2.4 mg/dL 08/12/2025 3:[address] [facility] Blood Venous blood specimen / Unknown Venipuncture / Unknown 08/12/2025 3:09 AM EST 08/12/2025 3:15 AM EST us Fabienne Palm MD LAB BLOOD ORDERABLES Coleen santizo Result [facility] [address] [place] [address] * (ABNORMAL) Comprehensive metabolic panel (08/12/2025 3:09 AM EST) Glucose, Plasma 231(H) 74 - 99 mg/dL 08/12/2025 3:[address] [facility] BUN, Plasma 24(H) 7 - 21 mg/dL 08/12/2025 3:[address] [facility] Creatinine, Plasma 1.21(H) 0.70 - 1.20 mg/dL 08/12/2025 3:[address] [facility] BUN/Creatinine Ratio 20 08/12/2025 3:[address] [facility] Sodium, Plasma 135(L) 136 - 145 mmol/L 08/12/2025 3:[address] [facility] Potassium, Plasma 4.3 3.6 - 4.9 mmol/L 08/12/2025 3:[address] [facility] Chloride, Plasma 102 97 - 107 mmol/L 08/12/2025 3:[address] [facility] CO2, Plasma 22 22 - 29 mmol/L 08/12/2025 3:[address] [facility] Anion Gap 11 6 - 16 mmol/L 08/12/2025 3:[address] [facility] Total Calcium, Plasma 9.1 8.9 - 10.2 mg/dL 08/12/2025 3:[address] [facility] Total Protein 6.1(L) 6.3 - 7.9 g/dL 08/12/2025 3:[address] [facility] Albumin, Plasma 3.1(L) 3.5 - 5.2 g/dL 08/12/2025 3:[address] [facility] AST, Plasma 17 10 - 50 U/L 08/12/2025 3:[address] [facility] ALT, Plasma 28 10 - 50 U/L 08/12/2025 3:[address] [facility] Alkaline Phosphatase, Plasma 66 40 - 115 U/L 08/12/2025 3:[address] [facility] Total Bilirubin, Plasma 0.3 0.2 - 1.1 mg/dL 08/12/2025 3:[address] [facility] eGFRcr 69.0 mL/min/1.7 3m*2 08/12/2025 3:[address] [facility] Comment:Reported eGFRcr in m L/min/1.73m2 is based the CKD-EPI 2020 equation that does not use a race coefficient. Blood Venous blood specimen / Unknown Venipuncture / Unknown 08/12/2025 3:09 AM EST 08/12/2025 3:15 AM EST Mery TEJEDA LAB BLOOD ORDERABLES F inal Result [facility] [address] [place] [address] * (ABNORMAL) CBC and differential (08/12/2025 3:09 AM EST) WBC Count 6.41 3.70 - 10.30 10*3/uL LAB HEMATOLOGY METHOD 08/12/2025 3:[address] [facility] RBC Count 4.48(L) 4.60 - 6.10 10*6/uL LAB HEMATOLOGY METHOD 08/12/2025 3:[address] [facility] HGB 13.1(L) 13.7 - 17.5 g/dL LAB HEMATOLOGY METHOD 08/12/2025 3:[address] [facility] HCT 38.6(L) 40.0 - 51.0 % LAB HEMATOLOGY METHOD 08/12/2025 3:[address] [facility] Platelet Count 171 155 - 369 10*3/uL LAB HEMATOLOGY METHOD 08/12/2025 3:[address] [facility] MCV 86 79 - 98 fL LAB HEMATOLOGY METHOD 08/12/2025 3:[address] [facility] MCH 29.2 26.0 - 32.0 pg LAB HEMATOLOGY METHOD 08/12/2025 3:[address] [facility] MCHC 33.9 30.7 - 35.5 g/dL LAB HEMATOLOGY METHOD 08/12/2025 3:[address] [facility] RDW 11.5 11.5 - 14.5 % LAB HEMATOLOGY METHOD 08/12/2025 3:36 AM [facility] MPV 11.9 8.8 - 12.5 fL LAB HEMATOLOGY METHOD 08/12/2025 3:36 AM [facility] nRBC 0.0 <=0.0 per 100 WBCs LAB HEMATOLOGY METHOD 08/12/2025 3:36 AM [facility] Differential Type Automated LAB HEMATOLOGY METHOD 08/12/2025 3:36 AM [facility] Neutrophils % 62 % LAB HEMATOLOGY METHOD 08/12/2025 3:36 AM [facility] Lymphocytes % 21 % LAB HEMATOLOGY METHOD 08/12/2025 3:36 AM [facility] Monocytes % 13 % LAB HEMATOLOGY METHOD 08/12/2025 3:36 AM [facility] Eosinophils % 3 % LAB HEMATOLOGY METHOD 08/12/2025 3:36 AM [facility] Basophils % 1 % LAB HEMATOLOGY METHOD 08/12/2025 3:36 AM [facility] Immature Granulocytes % 0 % LAB HEMATOLOGY METHOD 08/12/2025 3:36 AM [facility] Neutrophils Absolute 3.97 1.60 - 6.10 10*3/uL LAB HEMATOLOGY METHOD 08/12/2025 3:36 AM [facility] Lymphocytes Absolute 1.33 1.20 - 3.90 10*3/uL LAB HEMATOLOGY METHOD 08/12/2025 3:36 AM [facility] Monocytes Absolute 0.83 0.30 - 0.90 10*3/uL LAB HEMATOLOGY METHOD 08/12/2025 3:36 AM [facility] Eosinophils Absolute 0.21 0.00 - 0.50 10*3/uL LAB HEMATOLOGY METHOD 08/12/2025 3:36 AM [facility] Basophils Absolute 0.05 0.00 - 0.10 10*3/uL LAB HEMATOLOGY METHOD 08/12/2025 3:36 AM [facility] Immature Granulocytes Absolute 0.02 0.00 - 0.06 10*3/uL LAB HEMATOLOGY METHOD 08/12/2025 3:36 AM [facility] Blood Venous blood specimen / Unknown Venipuncture / Unknown 08/12/2025 3:09 AM EST 08/12/2025 3:[address] [facility] - 08/12/2025 3:36 AM EST Therapeutic decision making should be based on absolute values, rather than percentages. us Mery TEJEDA LAB BLOOD ORDERABLES F inal Result Performing Organization Address City/[facility]/ZIP Co de Phone Number [facility] [address] [place] [address] * (ABNORMAL) POCT glucose meter (08/11/2025 9:41 PM EST) POCT Glucose 230(H) 74 - 99 mg/dL 08/11/2025 9:43 PM EST [facility] Comment:Accuracy of a glucos e result obtained from a capillary whole blood specimen relies upon adequate, non-compromised capillary blood flow. If the capillary glucose result is not consistent with the patient's clinical signs and symptoms, glucose testing should be repeated with either an arterial or venous sample on the glucometer or sent to the main labortory for testing. Comment 08/11/2025 9:43 PM EST [facility] Sticker Hand ID Coreen Buckley 08/11/2025 9:43 PM EST [facility] Device ID [id number] 08/11/2025 9:43 PM EST [facility] Specimen Type POC Capillary 08/11/2025 9:43 PM EST [facility] Blood Capillary blood specimen / Unknown 08/11/2025 9:41 PM EST 08/11/2025 9:43 PM EST us Uche Fonseca MD LAB POINT OF CARE TE ST DOCKED DEVICE UNSOLICITED RESULTS Final Result Performing Organization Address City/[facility]/ZIP Co de Phone Number [facility] [address] [place] [address] * (ABNORMAL) POCT glucose meter (08/11/2025 7:37 PM EST) POCT Glucose 240(H) 74 - 99 mg/dL 08/11/2025 7:38 PM EST [facility] Comment:Accuracy of a glucos e result obtained from a capillary whole blood specimen relies upon adequate, non-compromised capillary blood flow. If the capillary glucose result is not consistent with the patient's clinical signs and symptoms, glucose testing should be repeated with either an arterial or venous sample on the glucometer or sent to the main labortory for testing. Comment 08/11/2025 7:38 PM EST [facility] Sticker Hand ID Coreen Buckley 08/11/2025 7:38 PM EST [facility] Device ID [id number] 08/11/2025 7:38 PM EST [facility] Specimen Type POC Capillary 08/11/2025 7:38 PM EST [facility] Blood Capillary blood specimen / Unknown 08/11/2025 7:37 PM EST 08/11/2025 7:38 PM EST Uche Fonseca MD LAB POINT OF CARE TE ST DOCKED DEVICE UNSOLICITED RESULTS Final Result Performing Organization Address City/[facility]/ZIP Co de Phone Number [facility] [address] [place] [address] * (ABNORMAL) POCT glucose meter (08/11/2025 4:03 PM EST) [facility] POCT Glucose 195(H) 74 - 99 mg/dL 08/11/2025 4:05 PM EST [facility] Comment:Accuracy of a glucos e result obtained from a capillary whole blood specimen relies upon adequate, non-compromised capillary blood flow. If the capillary glucose result is not consistent with the patient's clinical signs and symptoms, glucose testing should be repeated with either an arterial or venous sample on the glucometer or sent to the main labortory for testing. Comment 08/11/2025 4:05 PM EST [facility] Sticker Hand ID Joey Rutledge 08/11/2025 4:05 PM EST [facility] Device ID [id number] 08/11/2025 4:05 PM EST [facility] Specimen Type POC Capillary 08/11/2025 4:05 PM EST [facility] Blood Capillary blood specimen / Unknown 08/11/2025 4:03 PM EST 08/11/2025 4:05 PM EST us Uche Fonseca MD LAB POINT OF CARE TE ST DOCKED DEVICE UNSOLICITED RESULTS Final Result [facility] [address] [place] [address] * FL Less than 1 Hour Intraoperative (08/11/2025 1:30 PM EST) Narrative IMAGING - 08/11/2025 8:16 PM EST Images were obtained for surgical purposes. See Andie Moyer'nakita surgical note in the patient's chart for the findings. Andie Moyer MD IMG FLUOROSCOPY PROCEDURE S Final Result Performing Organization Address [facility] Co de Phone Number IMAGING * (ABNORMAL) POCT glucose meter (08/11/2025 1:17 PM EST) POCT Glucose 137(H) 74 - 99 mg/dL 08/11/2025 1:19 PM EST [facility] Comment:Accuracy of a glucos e result obtained from a capillary whole blood specimen relies upon adequate, non-compromised capillary blood flow. If the capillary glucose result is not consistent with the patient's clinical signs and symptoms, glucose testing should be repeated with either an arterial or venous sample on the glucometer or sent to the main labortory for testing. Comment 08/11/2025 1:19 PM EST [facility] Sticker Hand ID Maritza Dominguez 08/11/2025 1:19 PM EST [facility] Device ID [id number] 08/11/2025 1:19 PM EST [facility] Specimen Type POC Capillary 08/11/2025 1:19 PM EST [facility] Blood Capillary blood specimen / Unknown 08/11/2025 1:17 PM EST 08/11/2025 1:19 PM EST us Uche Fonseca MD LAB POINT OF CARE TE ST DOCKED DEVICE UNSOLICITED RESULTS Final Result Performing Organization Address City/[facility]/ZIP Co de Phone Number [facility] [address] [place] [address] * Fungal Culture, Tissue and BACILIO (08/11/2025 1:02 PM EST) Culture Reading Mycological 4 Weeks No Fungal Growth at 4 Weeks 09/08/2025 9:[address] [facility] BACILIO No fungal elements seen 09/08/2025 9:[address] [facility] Bone Structure of toe of left foot / Unknown 08/11/2025 1:02 PM EST 08/11/2025 1:38 PM EST Comment:Pre-op diagnosis: Cellulitis and abscess of toe of left foot [L03.032, L02.612] Andie Moyer MD LAB MICROBIOLOGY - GENERA L ORDERABLES Final Result Performing Organization Address City/[facility]/ZIP Co de Phone Number [facility] [address] [place] [address] * (ABNORMAL) Bone Culture and Gram Stain (08/11/2025 1:02 PM EST) Culture Light Growth 08/13/2025 1:[address] [facility] Culture Staphylococcus aureus(A) 08/13/2025 1:[address] [facility] Comment: For susceptibility results refer to: - [id number] The organism value for this result has been updated. These results have been appended to the previously preliminary verified report. Gram Stain Result No polymorphonuclear leukocytes seen 08/13/2025 1:[address] [facility] Gram Stain Result No organisms seen 08/13/2025 1:[address] [facility] Bone Structure of toe of left foot / Unknown 08/11/2025 1:02 PM EST 08/11/2025 1:38 PM EST Comment:Pre-op diagnosis: Cellulitis and abscess of toe of left foot [L03.032, L02.612] Andie Moyer MD LAB MICROBIOLOGY - GENERA L ORDERABLES Final Result Performing Organization Address City/[facility]/ZIP Co de Phone Number [facility] [address] [place] [address] * Anaerobic Culture (08/11/2025 1:02 PM EST) Culture No anaerobes isolated 08/15/2025 11:[address] [facility] Bone Structure of toe of left foot / Unknown 08/11/2025 1:02 PM EST 08/11/2025 1:38 PM EST Comment:Pre-op diagnosis: Cellulitis and abscess of toe of left foot [L03.032, L02.612] Andie Moyer MD LAB MICROBIOLOGY - GENERA L ORDERABLES Final Result Performing Organization Address [facility] Co de Phone Number [facility] [address] [place] [address] * Fungal Culture, Tissue and BACILIO (08/11/2025 1:00 PM EST) Culture Reading Mycological 4 Weeks No Fungal Growth at 4 Weeks 09/08/2025 9:[address] [facility] BACILIO No fungal elements seen 09/08/2025 9:[address] [facility] Bone Structure of toe of left foot / Unknown 08/11/2025 1:00 PM EST 08/11/2025 1:39 PM EST Comment:Pre-op diagnosis: Cellulitis and abscess of toe of left foot [L03.032, L02.612] Andie Moyer MD LAB MICROBIOLOGY - GENERA L ORDERABLES Final Result Performing Organization Address [facility] Co mi Phone Number [facility] [address] [place] [address] * (ABNORMAL) Bone Culture and Gram Stain (08/11/2025 1:00 PM EST) Culture Moderate Growth 12:[address] [facility] Culture Staphylococcus aureus(A) TOMMIE 08/14/2025 12:[address] [facility] Comment:The organism value f or this result has been updated. These results have been appended to the previously preliminary verified report. Gram Stain Result Few Polymorphonuclear leukocytes(A) 08/14/2025 12:[address] [facility] Gram Stain Result Few Gram positive cocci in pairs(A) 08/14/2025 12:[address] [facility] Bone Structure of toe of left foot / Unknown 08/11/2025 1:00 PM EST 08/11/2025 1:39 PM EST Comment:Pre-op diagnosis: Cellulitis and abscess of toe of left foot [L03.032, L02.612] Narrative Organism Antibiotic Method Susceptibility Staphylococcus aureus Clindamycin TOMMIE <=0.5 ug/ml: Susceptible Staphylococcus aureus Daptomycin TOMMIE <=1 ug/ml: Susceptible Staphylococcus aureus Erythromycin TOMMIE <=0.5 ug/ml: Susceptible Staphylococcus aureus Gentamicin TOMMIE <=1 ug/ml: Susceptible Staphylococcus aureus Linezolid TOMMIE 2 ug/ml: Susceptible Staphylococcus aureus Minocycline TOMMIE <=1 ug/ml: Susceptible Staphylococcus aureus Oxacillin TOMMIE <=0.25 ug/ml: Susceptible Staphylococcus aureus Penicillin G TOMMIE 0.25 ug/ml: Resistant Staphylococcus aureus Tetracycline TOMMIE <=0.5 ug/ml: Susceptible Staphylococcus aureus Trimethoprim/Sulfa methoxazo le TOMMIE <=0.5/9.5 ug/ml: Susceptible Staphylococcus aureus Vancomycin TOMMIE <=0.5 ug/ml: Susceptible Andie Moyer MD LAB MICROBIOLOGY - GENERA L ORDERABLES Final Result Performing Organization Address City/[facility] Co de Phone Number [facility] [address] [place] [address] * Anaerobic Culture (08/11/2025 1:00 PM EST) Culture Mixed aerobic and anaerobic carmine 08/15/2025 11:[address] [facility] Bone Structure of toe of left foot / Unknown 08/11/2025 1:00 PM EST 08/11/2025 1:39 PM EST Comment:Pre-op diagnosis: Cellulitis and abscess of toe of left foot [L03.032, L02.612] Andie Moyer MD LAB MICROBIOLOGY - GENERA L ORDERABLES Final Result Performing Organization Address City/[facility] Co de Phone Number [facility] [address] [place] [address] * Surgical Pathology Exam (08/11/2025 12:57 PM EST) Case Report Surgical Pathology Case: [id number] Authorizing Provider: Andie Moyer MD Collected: 08/11/2025 1257 Ordering Location: [facility] Received: 08/11/2025 1317 Pathologist: Diana King MD Specimen: Toe, Left, 4th Left Toe 08/16/2025 12:[address] [facility] Final Diagnosis A. 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 - NO ACUTE OSTEOMYELITIS IDENTIFIED 08/16/2025 12:[address] [facility] at 1251 EST Clinical Information Cellulitis and abscess of toe of left foot [L03.032, L02.612] 08/16/2025 12:[address] [facility] Gross Description A. 4TH LEFT TOE Received fresh and placed in formalin labeled 4 th left toe , is one amputated digit measuring 4.1 x 2.2 x 1.7 cm with an attached toenail. The skin surface there white-lindo to white-pink and smooth. There is a pink-moore ulceration on the underside of the digit measuring 1.8 x 1.0 cm. The bone resection margin is a roughened cut surface. Nicker sections are submitted in cassettes A1-A3 as follows: A1: Skin resection margin. A2: Roughened bone resection margin, submitted for decal. A3: Full-thickness cross section of ulceration with underlying bone, submitted for decal. Amisha Awad Jose Alberto 08/16/2025 12:[address] [facility] Bone Structure of toe of left foot / Unknown 08/11/2025 12:57 PM EST 08/11/2025 1:17 PM EST Comment:Pre-op diagnosis: Cellulitis and abscess of toe of left foot [L03.032, L02.612] us Andie Moyer MD LAB PATHOLOGY ORDERABLES Final Result [facility] [address] [place] [address] * (ABNORMAL) POCT glucose meter (08/11/2025 11:42 AM EST) POCT Glucose 177(H) 74 - 99 mg/dL 08/11/2025 11:44 AM EST [facility] Comment:Accuracy of a glucos e result obtained from a capillary whole blood specimen relies upon adequate, non-compromised capillary blood flow. If the capillary glucose result is not consistent with the patient's clinical signs and symptoms, glucose testing should be repeated with either an arterial or venous sample on the glucometer or sent to the main labortory for testing. Comment 08/11/2025 11:44 AM EST [facility] Sticker Hand ID Nidia Hernandez 025 11:44 AM EST [facility] Device ID [id number] 08/11/2025 11:44 AM EST [facility] Specimen Type POC Capillary 08/11/2025 11:44 AM EST [facility] Blood Capillary blood specimen / Unknown 08/11/2025 11:42 AM EST 08/11/2025 11:44 AM EST Uche Fonseca MD LAB POINT OF CARE TE ST DOCKED DEVICE UNSOLICITED RESULTS Final Result Performing Organization Address City/State/[facility] Co de Phone Number [facility] [address] [place] [address] * (ABNORMAL) POCT glucose meter (08/11/2025 7:39 AM EST) [facility] POCT Glucose 226(H) 74 - 99 mg/dL 08/11/2025 7:41 AM EST [facility] Comment:Accuracy of a glucos e result obtained from a capillary whole blood specimen relies upon adequate, non-compromised capillary blood flow. If the capillary glucose result is not consistent with the patient's clinical signs and symptoms, glucose testing should be repeated with either an arterial or venous sample on the glucometer or sent to the main labortory for testing. Comment 08/11/2025 7:41 AM EST [facility] Sticker Hand ID Joey Rutledge 08/11/2025 7:41 AM EST [facility] Device ID [id number] 08/11/2025 7:41 AM EST [facility] Specimen Type POC Capillary 08/11/2025 7:41 AM EST [facility] Blood Capillary blood specimen / Unknown 08/11/2025 7:39 AM EST 08/11/2025 7:41 AM EST us Uche Fonseca MD LAB POINT OF CARE TE ST DOCKED DEVICE UNSOLICITED RESULTS Final Result Performing Organization Address City/[facility]/ZIP Co de Phone Number [facility] [address] [place] [address] * (ABNORMAL) Sedimentation Rate, Automated (08/11/2025 3:30 AM EST) Sedimentation Rate 58(H) <20 mm/hr 2024 4:[address] [facility] Blood Venous blood specimen / Unknown Venipuncture / Unknown 08/11/2025 3:30 AM EST 08/11/2025 4:19 AM EST us Uche Fonseca MD LAB BLOOD ORDERABLES Final Re sult Performing Organization Address City/[facility] Co de Phone Number [facility] [address] [place] [address] * Phosphorus, Plasma (08/11/2025 3:30 AM EST) Phosphorus, Plasma 2.7 2.5 - 4.5 mg/dL 08/11/2025 4:[address] [facility] Blood Venous blood specimen / Unknown Venipuncture / Unknown 08/11/2025 3:30 AM EST 08/11/2025 4:17 AM EST Result Harvey Palm MD LAB BLOOD ORDERABLES Coleen l Result Performing Organization Address City/[facility]/ZIP Co de Phone Number [facility] [address] [place] [address] * (ABNORMAL) Magnesium, Plasma (08/11/2025 3:30 AM EST) Magnesium, Plasma 1.8(L) 1.9 - 2.4 mg/dL 08/11/2025 4:[address] [facility] Blood Venous blood specimen / Unknown Venipuncture / Unknown 08/11/2025 3:30 AM EST 08/11/2025 4:17 AM EST us Fabienne Palm MD LAB BLOOD ORDERABLES Coleen santizo Result [facility] [address] [place] [address] * CBC and differential (08/11/2025 3:30 AM EST) WBC Count 8.04 3.70 - 10.30 10*3/uL LAB HEMATOLOGY METHOD 08/11/2025 4:[address] [facility] RBC Count 4.75 4.60 - 6.10 10*6/uL LAB HEMATOLOGY METHOD 08/11/2025 4:[address] [facility] HGB 14.0 13.7 - 17.5 g/dL LAB HEMATOLOGY METHOD 08/11/2025 4:[address] [facility] HCT 40.7 40.0 - 51.0 % LAB HEMATOLOGY METHOD 08/11/2025 4:[address] [facility] Platelet Count 176 155 - 369 10*3/uL LAB HEMATOLOGY METHOD 08/11/2025 4:[address] [facility] MCV 86 79 - 98 fL LAB HEMATOLOGY METHOD 08/11/2025 4:[address] [facility] MCH 29.5 26.0 - 32.0 pg LAB HEMATOLOGY METHOD 08/11/2025 4:[address] [facility] MCHC 34.4 30.7 - 35.5 g/dL LAB HEMATOLOGY METHOD 08/11/2025 4:[address] [facility] RDW 11.6 11.5 - 14.5 % LAB HEMATOLOGY METHOD 08/11/2025 4:[address] [facility] MPV 12.5 8.8 - 12.5 fL LAB HEMATOLOGY METHOD 08/11/2025 4:[address] [facility] nRBC 0.0 <=0.0 per 100 WBCs LAB HEMATOLOGY METHOD 08/11/2025 4:[address] [facility] Differential Type Automated LAB HEMATOLOGY METHOD 08/11/2025 4:[address] [facility] Neutrophils % 69 % LAB HEMATOLOGY METHOD 08/11/2025 4:[address] [facility] Lymphocytes % 15 % LAB HEMATOLOGY METHOD 08/11/2025 4:[address] [facility] Monocytes % 10 % LAB HEMATOLOGY METHOD 08/11/2025 4:[address] [facility] Eosinophils % 4 % LAB HEMATOLOGY METHOD 08/11/2025 4:[address] [facility] Basophils % 1 % LAB HEMATOLOGY METHOD 08/11/2025 4:[address] [facility] Immature Granulocytes % 1 % LAB HEMATOLOGY METHOD 08/11/2025 4:[address] [facility] Neutrophils Absolute 5.60 1.60 - 6.10 10*3/uL LAB HEMATOLOGY METHOD 08/11/2025 4:[address] [facility] Lymphocytes Absolute 1.22 1.20 - 3.90 10*3/uL LAB HEMATOLOGY METHOD 08/11/2025 4:[address] [facility] Monocytes Absolute 0.84 0.30 - 0.90 10*3/uL LAB HEMATOLOGY METHOD 08/11/2025 4:[address] [facility] Eosinophils Absolute 0.29 0.00 - 0.50 10*3/uL LAB HEMATOLOGY METHOD 08/11/2025 4:[address] [facility] Basophils Absolute 0.05 0.00 - 0.10 10*3/uL LAB HEMATOLOGY METHOD 08/11/2025 4:[address] [facility] Immature Granulocytes Absolute 0.04 0.00 - 0.06 10*3/uL LAB HEMATOLOGY METHOD 08/11/2025 4:[address] [facility] Blood Venous blood specimen / Unknown Venipuncture / Unknown 08/11/2025 3:30 AM EST 08/11/2025 4:[address] [facility] - 08/11/2025 4:27 AM EST Therapeutic decision making should be based on absolute values, rather than percentages. us Uche Fonseca MD LAB BLOOD ORDERABLES Final Re sult [facility] [address] [place] [address] * (ABNORMAL) Basic metabolic panel (08/11/2025 3:30 AM EST) Glucose, Plasma 205(H) 74 - 99 mg/dL 08/11/2025 4:[address] [facility] BUN, Plasma 19 7 - 21 mg/dL 08/11/2025 4:[address] [facility] Creatinine, Plasma 1.03 0.70 - 1.20 mg/dL 08/11/2025 4:[address] [facility] BUN/Creatinine Ratio 18 08/11/2025 4:[address] [facility] Sodium, Plasma 134(L) 136 - 145 mmol/L 08/11/2025 4:[address] [facility] Potassium, Plasma 4.1 3.6 - 4.9 mmol/L 08/11/2025 4:[address] [facility] Chloride, Plasma 100 97 - 107 mmol/L 08/11/2025 4:[address] [facility] CO2, Plasma 22 22 - 29 mmol/L 08/11/2025 4:[address] [facility] Anion Gap 12 6 - 16 mmol/L 08/11/2025 4:[address] [facility] Total Calcium, Plasma 9.5 8.9 - 10.2 mg/dL 08/11/2025 4:[address] [facility] eGFRcr 83.7 mL/min/1.7 3m*2 08/11/2025 4:[address] [facility] Comment:Reported eGFRcr in m L/min/1.73m2 is based the CKD-EPI 2020 equation that does not use a race coefficient. Blood Venous blood specimen / Unknown Venipuncture / Unknown 08/11/2025 3:30 AM EST 08/11/2025 4:17 AM EST Uche Fonseca MD LAB BLOOD ORDERABLES Final Re sult [facility] [address] [place] [address] * (ABNORMAL) POCT glucose meter (08/10/2025 7:27 PM EST) POCT Glucose 215(H) 74 - 99 mg/dL 08/10/2025 7:33 PM EST [facility] Comment:Accuracy of a glucos e result obtained from a capillary whole blood specimen relies upon adequate, non-compromised capillary blood flow. If the capillary glucose result is not consistent with the patient's clinical signs and symptoms, glucose testing should be repeated with either an arterial or venous sample on the glucometer or sent to the main labortory for testing. Comment 08/10/2025 7:33 PM EST [facility] Sticker Hand ID Chapin Steve 08/10/2025 7:33 PM EST [facility] Device ID [id number] 08/10/2025 7:33 PM EST [facility] Specimen Type POC Capillary 08/10/2025 7:33 PM EST [facility] Blood Capillary blood specimen / Unknown 08/10/2025 7:27 PM EST 08/10/2025 7:33 PM EST Uche Fonseca MD LAB POINT OF CARE TE ST DOCKED DEVICE UNSOLICITED RESULTS Final Result Performing Organization Address City/[facility] Co de Phone Number [facility] [address] [place] [address] * (ABNORMAL) POCT glucose meter (08/10/2025 4:15 PM EST) [facility] POCT Glucose 237(H) 74 - 99 mg/dL 08/10/2025 4:18 PM EST [facility] Comment:Accuracy of a glucos e result obtained from a capillary whole blood specimen relies upon adequate, non-compromised capillary blood flow. If the capillary glucose result is not consistent with the patient's clinical signs and symptoms, glucose testing should be repeated with either an arterial or venous sample on the glucometer or sent to the main labortory for testing. Comment 08/10/2025 4:18 PM EST [facility] Sticker Hand ID Chapin Steve 08/10/2025 4:18 PM EST [facility] Device ID [id number] 08/10/2025 4:18 PM EST [facility] Specimen Type POC Capillary 08/10/2025 4:18 PM EST [facility] Blood Capillary blood specimen / Unknown 08/10/2025 4:15 PM EST 08/10/2025 4:18 PM EST us Uche Fonseca MD LAB POINT OF CARE TE ST DOCKED DEVICE UNSOLICITED RESULTS Final Result Performing Organization Address City/[facility] Co de Phone Number [facility] [address] [place] [address] * (ABNORMAL) POCT glucose meter (08/10/2025 11:13 AM EST) [facility] POCT Glucose 323(H) 74 - 99 mg/dL 08/10/2025 11:18 AM EST [facility] Comment:Accuracy of a glucos e result obtained from a capillary whole blood specimen relies upon adequate, non-compromised capillary blood flow. If the capillary glucose result is not consistent with the patient's clinical signs and symptoms, glucose testing should be repeated with either an arterial or venous sample on the glucometer or sent to the main labortory for testing. Comment 08/10/2025 11:18 AM EST [facility] Sticker Hand ID Alba Doan Zeinab 08/10/2025 11:18 AM EST [facility] Device ID [id number] 08/10/2025 11:18 AM EST [facility] Specimen Type POC Capillary 08/10/2025 11:18 AM EST [facility] Blood Capillary blood specimen / Unknown 08/10/2025 11:13 AM EST 08/10/2025 11:18 AM EST Uche Fonseca MD LAB POINT OF CARE TE ST DOCKED DEVICE UNSOLICITED RESULTS Final Result [facility] [address] [place] [address] * (ABNORMAL) POCT glucose meter (08/10/2025 7:34 AM EST) [facility] POCT Glucose 176(H) 74 - 99 mg/dL 08/10/2025 7:39 AM EST [facility] Comment:Accuracy of a glucos e result obtained from a capillary whole blood specimen relies upon adequate, non-compromised capillary blood flow. If the capillary glucose result is not consistent with the patient's clinical signs and symptoms, glucose testing should be repeated with either an arterial or venous sample on the glucometer or sent to the main labortory for testing. Comment 08/10/2025 7:39 AM EST [facility] Sticker Hand ID Alba Doan 08/10/2025 7:39 AM EST [facility] Device ID [id number] 08/10/2025 7:39 AM EST [facility] Specimen Type POC Capillary 08/10/2025 7:39 AM EST [facility] Blood Capillary blood specimen / Unknown 08/10/2025 7:34 AM EST 08/10/2025 7:39 AM EST Uche Fonseca MD LAB POINT OF CARE TE ST DOCKED DEVICE UNSOLICITED RESULTS Final Result Performing Organization Address [facility]/ZIP Co de Phone Number [facility] [address] [place] [address] * (ABNORMAL) C-reactive protein (08/10/2025 3:22 AM EST) CRP, Plasma 52.4(H) <=8.0 mg/L 08/11/2025 3:21 AM EST [facility] Blood Venous blood specimen / Unknown Venipuncture / Unknown 08/10/2025 3:22 AM EST 08/10/2025 3:[address] [facility] - 08/11/2025 3:21 AM EST This CRP test is appropriate for assessment of infection, systemic inflammation and/or tissue injury. To assess cardiovascular disease risk order high sensitivity CRP (CRPH). Result [facility] Uche Fonseca MD LAB BLOOD ORDERABLES Final Re sult Performing Organization Address City/[facility] Co de Phone Number [facility] [address] [place] [address] * Vitamin D 25 Hydroxy (08/10/2025 3:22 AM EST) Pathologist [facility] Vitamin D 25 Hydroxy 78.2 20.0 - 80.0 ng/mL 08/10/2025 8:[address] [facility] Blood Venous blood specimen / Unknown Venipuncture / Unknown 08/10/2025 3:22 AM EST 08/10/2025 3:[address] [facility] - 08/10/2025 8:08 AM EST Testing performed on [employer], standardized against NIST SRM 2972. When testing samples from patients whose predominant form of vitamin D is vitamin D2, such as patients receiving vitamin D2 supplementation, results that are subtherapeutic should be confirmed with another method, such as LC-MS/MS, before being used for patient management. Vitamin D, 25-Hydroxy reference range, age 18 years and up: Deficiency: <12 ng/mL Insufficiency: 12 to 19 ng/mL Sufficiency: 20 to 80 ng/mL Possible toxicity: >100 ng/mL us Fabienne Palm MD LAB BLOOD ORDERABLES Coleen l Result Performing Organization Address City/[facility]/ZIP Co de Phone Number [facility] [address] [place] [address] * Phosphorus, Plasma (08/10/2025 3:22 AM EST) Phosphorus, Plasma 3.4 2.5 - 4.5 mg/dL 08/10/2025 3:[address] [facility] Blood Venous blood specimen / Unknown Venipuncture / Unknown 08/10/2025 3:22 AM EST 08/10/2025 3:29 AM EST us Fabienne Palm MD LAB BLOOD ORDERABLES Coleen l Result Performing Organization Address [facility] Co de Phone Number [facility] [address] [place] [address] * Magnesium, Plasma (08/10/2025 3:22 AM EST) Pathologist [facility] Magnesium, Plasma 1.9 1.9 - 2.4 mg/dL 08/10/2025 3:[address] [facility] Blood Venous blood specimen / Unknown Venipuncture / Unknown 08/10/2025 3:22 AM EST 08/10/2025 3:29 AM EST us Fabienne Palm MD LAB BLOOD ORDERABLES Coleen l Result Performing Organization Address City/[facility] Co de Phone Number [facility] [address] [place] [address] * (ABNORMAL) POCT glucose meter (08/10/2025 3:13 AM EST) POCT Glucose 173(H) 74 - 99 mg/dL 08/10/2025 3:15 AM EST [facility] Comment:Accuracy of a glucos e result obtained from a capillary whole blood specimen relies upon adequate, non-compromised capillary blood flow. If the capillary glucose result is not consistent with the patient's clinical signs and symptoms, glucose testing should be repeated with either an arterial or venous sample on the glucometer or sent to the main labortory for testing. Comment 08/10/2025 3:15 AM EST [facility] Sticker Hand ID Yobany Carr 08/10/2025 3:15 AM EST [facility] Device ID [id number] 08/10/2025 3:15 AM EST [facility] Specimen Type POC Capillary 08/10/2025 3:15 AM EST [facility] Blood Capillary blood specimen / Unknown 08/10/2025 3:13 AM EST 08/10/2025 3:15 AM EST us Fabienne Palm MD LAB POINT OF CARE TEST DOCKED DEVICE UNSOLICITED RESULTS Final Result Performing Organization Address City/State/[facility] Co de Phone Number [facility] [address] [place] [address] * (ABNORMAL) POCT glucose meter (08/09/2025 9:11 PM EST) [facility] POCT Glucose 251(H) 74 - 99 mg/dL 08/09/2025 9:12 PM EST [facility] Comment:Accuracy of a glucos e result obtained from a capillary whole blood specimen relies upon adequate, non-compromised capillary blood flow. If the capillary glucose result is not consistent with the patient's clinical signs and symptoms, glucose testing should be repeated with either an arterial or venous sample on the glucometer or sent to the main labortory for testing. Comment 08/09/2025 9:12 PM EST [facility] Sticker Hand ID Yobany Carr 08/09/2025 9:12 PM EST [facility] Device ID [id number] 08/09/2025 9:12 PM EST [facility] Specimen Type POC Capillary 08/09/2025 9:12 PM EST [facility] Blood Capillary blood specimen / Unknown 08/09/2025 9:11 PM EST 08/09/2025 9:12 PM EST us Fabienne Palm MD LAB POINT OF CARE TEST DOCKED DEVICE UNSOLICITED RESULTS Final Result Performing Organization Address City/[facility]/ZIP Co de Phone Number [facility] [address] [place] [address] * (ABNORMAL) POCT glucose meter (08/09/2025 5:01 PM EST) [facility] POCT Glucose 272(H) 74 - 99 mg/dL 08/09/2025 5:03 PM EST [facility] Comment:Accuracy of a glucos e result obtained from a capillary whole blood specimen relies upon adequate, non-compromised capillary blood flow. If the capillary glucose result is not consistent with the patient's clinical signs and symptoms, glucose testing should be repeated with either an arterial or venous sample on the glucometer or sent to the main labortory for testing. Comment 08/09/2025 5:03 PM EST [facility] Sticker Hand ID Winnie Stringer 08/09/2025 5:03 PM EST [facility] Device ID [id number] 08/09/2025 5:03 PM EST [facility] Specimen Type POC Capillary 08/09/2025 5:03 PM EST [facility] Blood Capillary blood specimen / Unknown 08/09/2025 5:01 PM EST 08/09/2025 5:03 PM EST us Fabienne Palm MD LAB POINT OF CARE TEST DOCKED DEVICE UNSOLICITED RESULTS Final Result Performing Organization Address City/[facility] Co de Phone Number [facility] [address] [place] [address] * Vancomycin, Peak, Plasma Please draw ~2 hours after 0900 08/09 dose of vancomycin finishes infusing. Consider obtaining level via peripheral stick. If peripheral stick is not feasible, please ensure that line is flushed well prior to drawing level... (08/09/2025 12:49 PM EST) [facility] Vancomycin, Peak, Plasma 20.0 20.0 - 40.0 ug/mL 08/09/2025 1:[address] [facility] Blood Venous blood specimen / Unknown Venipuncture / Unknown 08/09/2025 12:49 PM EST 08/09/2025 1:[address] [facility] - 08/09/2025 1:46 PM EST Therapeutic Peak level: 20-40ug/mL Supra-therapeutic Peak level: >40 ug/mL us Oriana Castelan MD LAB BLOOD ORDERABLES Final R esult Performing Organization Address [facility] Co de Phone Number [facility] [address] [place] [address] * (ABNORMAL) POCT glucose meter (08/09/2025 11:54 AM EST) POCT Glucose 395(H) 74 - 99 mg/dL 08/09/2025 11:56 AM EST [facility] Comment:Accuracy of a glucos e result obtained from a capillary whole blood specimen relies upon adequate, non-compromised capillary blood flow. If the capillary glucose result is not consistent with the patient's clinical signs and symptoms, glucose testing should be repeated with either an arterial or venous sample on the glucometer or sent to the main labortory for testing. Comment 08/09/2025 11:56 AM EST [facility] Sticker Hand ID Winnie Stringer 08/09/2025 11:56 AM EST [facility] Device ID [id number] 08/09/2025 11:56 AM EST [facility] Specimen Type POC Capillary 08/09/2025 11:56 AM EST [facility] Blood Capillary blood specimen / Unknown 08/09/2025 11:54 AM EST 08/09/2025 11:56 AM EST Fabienne Palm MD LAB POINT OF CARE TEST DOCKED DEVICE UNSOLICITED RESULTS Final Result Performing Organization Address [facility] Co de Phone Number [facility] [address] [place] [address] * (ABNORMAL) Vancomycin, Trough, Plasma Please draw ~30 minutes prior to dose due at 0830 on 08/09. Please do NOT hold dose awaiting level to return. Consider obtaining level via peripheral stick. If peripheral stick is not feasible, please ensure that line i... (08/09/2025 8:30 AM EST) Vancomycin, Trough, Plasma 8.2(L) 10.0 - 20.0 ug/mL 08/09/2025 10:[address] [facility] Blood Venous blood specimen / Unknown Venipuncture / Unknown 08/09/2025 8:30 AM EST 08/09/2025 10:[address] [facility] - 08/09/2025 10:45 AM EST Therapeutic Trough level: 10-20ug/mL Supra-therapeutic Trough level: >20 ug/mL us Oriana Castelan MD LAB BLOOD ORDERABLES Final R esult Performing Organization Address City/[facility]/ZIP Co de Phone Number [facility] [address] [place] [address] * (ABNORMAL) POCT glucose meter (08/09/2025 7:38 AM EST) POCT Glucose 245(H) 74 - 99 mg/dL 08/09/2025 7:39 AM EST [facility] Comment:Accuracy of a glucos e result obtained from a capillary whole blood specimen relies upon adequate, non-compromised capillary blood flow. If the capillary glucose result is not consistent with the patient's clinical signs and symptoms, glucose testing should be repeated with either an arterial or venous sample on the glucometer or sent to the main labortory for testing. Comment 08/09/2025 7:39 AM EST [facility] Sticker Hand ID Winnie Stringer 08/09/2025 7:39 AM EST [facility] Device ID [id number] 08/09/2025 7:39 AM EST [facility] Specimen Type POC Capillary 08/09/2025 7:39 AM EST [facility] Blood Capillary blood specimen / Unknown 08/09/2025 7:38 AM EST 08/09/2025 7:39 AM EST us Oriana Castelan MD LAB POINT OF CARE TE ST DOCKED DEVICE UNSOLICITED RESULTS Final Result Performing Organization Address City/[facility]/ZIP Co de Phone Number [facility] [address] [place] [address] * (ABNORMAL) POCT glucose meter (08/09/2025 3:42 AM EST) POCT Glucose 232(H) 74 - 99 mg/dL 08/09/2025 3:45 AM EST [facility] Comment:Accuracy of a glucos e result obtained from a capillary whole blood specimen relies upon adequate, non-compromised capillary blood flow. If the capillary glucose result is not consistent with the patient's clinical signs and symptoms, glucose testing should be repeated with either an arterial or venous sample on the glucometer or sent to the main labortory for testing. Comment 08/09/2025 3:45 AM EST [facility] Sticker Hand ID Janene Bush 3:45 AM EST [facility] Device ID [id number] 08/09/2025 3:45 AM EST [facility] Specimen Type POC Capillary 08/09/2025 3:45 AM EST [facility] Blood Capillary blood specimen / Unknown 08/09/2025 3:42 AM EST 08/09/2025 3:45 AM EST us Oriana Castelan MD LAB POINT OF CARE TE ST DOCKED DEVICE UNSOLICITED RESULTS Final Result Performing Organization Address City/[facility]/ZIP Co de Phone Number [facility] [address] [place] [address] * Phosphorus, Plasma (08/09/2025 2:30 AM EST) [facility] Phosphorus, Plasma 3.2 2.5 - 4.5 mg/dL 08/09/2025 3:[address] [facility] Blood Venous blood specimen / Unknown Venipuncture / Unknown 08/09/2025 2:30 AM EST 08/09/2025 2:44 AM EST us Fabienne Palm MD LAB BLOOD ORDERABLES Coleen l Result [facility] [address] [place] [address] * (ABNORMAL) Magnesium, Plasma (08/09/2025 2:30 AM EST) [facility] Magnesium, Plasma 1.8(L) 1.9 - 2.4 mg/dL 08/09/2025 3:[address] [facility] Blood Venous blood specimen / Unknown Venipuncture / Unknown 08/09/2025 2:30 AM EST 08/09/2025 2:44 AM EST us Fabienne Palm MD LAB BLOOD ORDERABLES Coleen santizo Result [facility] [address] [place] [address] * (ABNORMAL) Comprehensive metabolic panel (08/09/2025 2:30 AM EST) Glucose, Plasma 226(H) 74 - 99 mg/dL 08/09/2025 3:[address] [facility] BUN, Plasma 22(H) 7 - 21 mg/dL 08/09/2025 3:[address] [facility] Creatinine, Plasma 1.18 0.70 - 1.20 mg/dL 08/09/2025 3:[address] [facility] BUN/Creatinine Ratio 19 08/09/2025 3:[address] [facility] Sodium, Plasma 133(L) 136 - 145 mmol/L 08/09/2025 3:[address] [facility] Potassium, Plasma 4.5 3.6 - 4.9 mmol/L 08/09/2025 3:[address] [facility] Chloride, Plasma 99 97 - 107 mmol/L 08/09/2025 3:[address] [facility] CO2, Plasma 24 22 - 29 mmol/L 08/09/2025 3:[address] [facility] Anion Gap 10 6 - 16 mmol/L 08/09/2025 3:[address] [facility] Total Calcium, Plasma 9.9 8.9 - 10.2 mg/dL 08/09/2025 3:[address] [facility] Total Protein 7.1 6.3 - 7.9 g/dL 08/09/2025 3:[address] [facility] Albumin, Plasma 3.6 3.5 - 5.2 g/dL 08/09/2025 3:[address] [facility] AST, Plasma 29 10 - 50 U/L 08/09/2025 3:[address] [facility] Comment:Hemolyzed, result ma y be falsely increased. ALT, Plasma 37 10 - 50 U/L 08/09/2025 3:[address] [facility] Alkaline Phosphatase, Plasma 75 40 - 115 U/L 08/09/2025 3:[address] [facility] Total Bilirubin, Plasma 0.4 0.2 - 1.1 mg/dL 08/09/2025 3:[address] [facility] eGFRcr 71.1 mL/min/1.7 3m*2 08/09/2025 3:[address] [facility] Comment:Reported eGFRcr in m L/min/1.73m2 is based the CKD-EPI 2020 equation that does not use a race coefficient. Blood Venous blood specimen / Unknown Venipuncture / Unknown 08/09/2025 2:30 AM EST 08/09/2025 2:44 AM EST Mery TEJEDA LAB BLOOD ORDERABLES F inal Result [facility] [address] [place] [address] * (ABNORMAL) CBC and differential (08/09/2025 2:30 AM EST) WBC Count 8.34 3.70 - 10.30 10*3/uL LAB HEMATOLOGY METHOD 08/09/2025 2:[address] [facility] RBC Count 4.90 4.60 - 6.10 10*6/uL LAB HEMATOLOGY METHOD 08/09/2025 2:[address] [facility] HGB 14.4 13.7 - 17.5 g/dL LAB HEMATOLOGY METHOD 08/09/2025 2:[address] [facility] HCT 43.0 40.0 - 51.0 % LAB HEMATOLOGY METHOD 08/09/2025 2:[address] [facility] Platelet Count 159 155 - 369 10*3/uL LAB HEMATOLOGY METHOD 08/09/2025 2:[address] [facility] MCV 88 79 - 98 fL LAB HEMATOLOGY METHOD 08/09/2025 2:[address] [facility] MCH 29.4 26.0 - 32.0 pg LAB HEMATOLOGY METHOD 08/09/2025 2:[address] [facility] MCHC 33.5 30.7 - 35.5 g/dL LAB HEMATOLOGY METHOD 08/09/2025 2:[address] [facility] RDW 11.7 11.5 - 14.5 % LAB HEMATOLOGY METHOD 08/09/2025 2:[address] [facility] MPV 12.7(H) 8.8 - 12.5 fL LAB HEMATOLOGY METHOD 08/09/2025 2:[address] [facility] nRBC 0.0 <=0.0 per 100 WBCs LAB HEMATOLOGY METHOD 08/09/2025 2:[address] [facility] Differential Type Automated LAB HEMATOLOGY METHOD 08/09/2025 2:[address] [facility] Neutrophils % 72 % LAB HEMATOLOGY METHOD 08/09/2025 2:[address] [facility] Lymphocytes % 13 % LAB HEMATOLOGY METHOD 08/09/2025 2:[address] [facility] Monocytes % 10 % LAB HEMATOLOGY METHOD 08/09/2025 2:[address] [facility] Eosinophils % 3 % LAB HEMATOLOGY METHOD 08/09/2025 2:[address] [facility] Basophils % 1 % LAB HEMATOLOGY METHOD 08/09/2025 2:50 AM [facility] Immature Granulocytes % 1 % LAB HEMATOLOGY METHOD 08/09/2025 2:50 AM [facility] Neutrophils Absolute 6.04 1.60 - 6.10 10*3/uL LAB HEMATOLOGY METHOD 08/09/2025 2:[address] [facility] Lymphocytes Absolute 1.06(L) 1.20 - 3.90 10*3/uL LAB HEMATOLOGY METHOD 08/09/2025 2:[address] [facility] Monocytes Absolute 0.87 0.30 - 0.90 10*3/uL LAB HEMATOLOGY METHOD 08/09/2025 2:[address] [facility] Eosinophils Absolute 0.28 0.00 - 0.50 10*3/uL LAB HEMATOLOGY METHOD 08/09/2025 2:[address] [facility] Basophils Absolute 0.05 0.00 - 0.10 10*3/uL LAB HEMATOLOGY METHOD 08/09/2025 2:[address] [facility] Immature Granulocytes Absolute 0.04 0.00 - 0.06 10*3/uL LAB HEMATOLOGY METHOD 08/09/2025 2:[address] [facility] Blood Venous blood specimen / Unknown Venipuncture / Unknown 08/09/2025 2:30 AM EST 08/09/2025 2:[address] [facility] - 08/09/2025 2:50 AM EST Therapeutic decision making should be based on absolute values, rather than percentages. Mery TEJEDA LAB BLOOD ORDERABLES F inal Result Performing Organization Address [facility] Co de Phone Number [facility] [address] [place] [address] * (ABNORMAL) C-Reactive Protein, Plasma (08/09/2025 2:30 AM EST) CRP, Plasma 91.2(H) <=8.0 mg/L 08/09/2025 3:[address] [facility] Blood Venous blood specimen / Unknown Venipuncture / Unknown 08/09/2025 2:30 AM EST 08/09/2025 2:[address] [facility] - 08/09/2025 3:14 AM EST This CRP test is appropriate for assessment of infection, systemic inflammation and/or tissue injury. To assess cardiovascular disease risk order high sensitivity CRP (CRPH). Mery TEJEDA LAB BLOOD ORDERABLES F inal Result Performing Organization Address City/[facility] Co de Phone Number [facility] [address] [place] [address] * Vitamin D 1,25 dihydroxy (08/09/2025 2:30 AM EST) VITAMIN D, 1, 25-DIHYDROXY 44.9 19.9 - 79.3 pg/mL 08/12/2025 8:[address] [facility] Blood Venous blood specimen / Unknown Venipuncture / Unknown 08/09/2025 2:30 AM EST 08/09/2025 2:44 AM EST us Fabienne Palm MD LAB BLOOD ORDERABLES Coleen santizo Result [facility] [address] [place] [address] * MR Foot Left w and wo IV Contrast (08/09/2025 1:29 AM EST) Anatomical Region Laterality Modality Foot Left Magnetic Resonan ce Impressions 08/09/2025 8:22 AM EST Evaluation is somewhat limited by inhomogeneous fat saturation overlying the digits. Ulceration along the plantar lateral aspect of the fourth digit appears to extend to the proximal interphalangeal joint. There is further effusion of the joint space could represent associated septic joint. Further edema and enhancement throughout the fourth digit likely represents a component of cellulitis. Evaluation of marrow signal is somewhat limited by inhomogeneous fat saturation, within these limits there is mild edema-like marrow signal change along the proximal interphalangeal joint of the fourth digit however no significant enhancement. This could be potentially reactive however given concern for septic joint follow-up could be consider to exclude early infection. Further edema extending into the dorsal lateral aspect of the forefoot could represent further cellulitis. CRITICAL RESULT: No. COMMUNICATION: Per this written report. Drafted by James Bianchi on 08/09/2025 8:09 AM Final report signed by James Bianchi on 08/09/2025 8:22 AM Narrative 08/09/2025 8:22 AM EST CLINICAL INDICATION: to assess for underlying osteomyelitis vs necrotizing infection TECHNIQUE: Multiplanar multiecho sequences were obtained utilizing T1 and T2 weighting with and without the administration of intravenous contrast. 17.5 mL of Dotarem was administered. COMPARISON: None. FINDINGS: Evaluation is somewhat limited by inhomogeneous fat saturation overlying the digits. Bone and Bone Marrow: Edema-like marrow signal change in the middle and proximal phalanx of the fourth digit with no definitive enhancement. There is subtle irregularity of the cortex of the middle phalanx. Increased signal within the third and fifth digits is favored to be secondary to an homogeneous fat saturation. Soft Tissues: Ulceration overlying the plantar lateral aspect of the fourth digit which extends to the proximal interphalangeal joint. Edema and enhancement is noted throughout the fourth digit extending to the dorsal lateral aspect of the forefoot. There is fluid signal extending dorsally from the proximal interphalangeal joint could represent effusion. Edema throughout the plantar musculature of the foot with no associated enhancement may represent denervation myositis. The flexor and extensors appear grossly intact. No discrete organized fluid collection. Procedure Note James Bianchi MD - 08/09/2025 CLINICAL INDICATION: to assess for underlying osteomyelitis vs necrotizing infection TECHNIQUE: Multiplanar multiecho sequences were obtained utilizing T1 and [id number] with and without the administration of intravenous contrast.17.5 mL of Dotarem was administered. COMPARISON: None. FINDINGS: Evaluation is somewhat limited by inhomogeneous fat saturation overlyingthe digits. Bone and Bone Marrow: Edema-like marrow signal change in the middle andproximal phalanx of the fourth digit with no definitive enhancement. Thereis subtle irregularity of the cortex of the middle phalanx. Increasedsignal within the third and fifth digits is favored to be secondary to anhomogeneous fat saturation. Soft Tissues: Ulceration overlying the plantar lateral aspect of thefourth digit which extends to the proximal interphalangeal joint. Edemaand enhancement is noted throughout the fourth digit extending to thedorsal lateral aspect of the forefoot. There is fluid signal extendingdorsally from the proximal interphalangeal joint could represent effusion.Edema throughout the plantar musculature of the foot with no associatedenhancement may represent denervation myositis. The flexor and extensorsappear grossly intact. No discrete organized fluid collection. IMPRESSION: Evaluation is somewhat limited by inhomogeneous fat saturation overlyingthe digits. Ulceration along the plantar lateral aspect of the fourth digit appears toextend to the proximal interphalangeal joint. There is further effusion ofthe joint space could represent associated septic joint. Further edema andenhancement throughout the fourth digit likely represents a component ofcellulitis. Evaluation of marrow signal is somewhat limited by inhomogeneous fatsaturation, within these limits there is mild edema-like marrow signalchange along the proximal interphalangeal joint of the fourth digithowever no significant enhancement. This could be potentially reactivehowever given concern for septic joint follow-up could be consider toexclude early infection. Further edema extending into the dorsal lateral aspect of the forefootcould represent further cellulitis. CRITICAL RESULT: No. COMMUNICATION: Per this written report. Drafted by James Bianchi on 08/09/2025 8:09 AM Final report signed by James Bianchi on 08/09/2025 8:22 AM us Mery TEJEDA IMG MRI PROCEDURES Fin al Result * (ABNORMAL) POCT glucose meter (08/08/2025 8:32 PM EST) Pathologist [facility] POCT Glucose 286(H) 74 - 99 mg/dL 08/08/2025 8:34 PM EST [facility] Comment:Accuracy of a glucos e result obtained from a capillary whole blood specimen relies upon adequate, non-compromised capillary blood flow. If the capillary glucose result is not consistent with the patient's clinical signs and symptoms, glucose testing should be repeated with either an arterial or venous sample on the glucometer or sent to the main labortory for testing. Comment 08/08/2025 8:34 PM EST [facility] Sticker Hand ID Janene Bush 8:34 PM EST [facility] Device ID [id number] 08/08/2025 8:34 PM EST [facility] Specimen Type POC Capillary 08/08/2025 8:34 PM EST [facility] Blood Capillary blood specimen / Unknown 08/08/2025 8:32 PM EST 08/08/2025 8:34 PM EST Oriana Castelan MD LAB POINT OF CARE TE ST DOCKED DEVICE UNSOLICITED RESULTS Final Result Performing Organization Address City/State/[facility] Co de Phone Number [facility] [address] [place] [address] * (ABNORMAL) POCT glucose meter (08/08/2025 4:11 PM EST) Pathologist [facility] POCT Glucose 211(H) 74 - 99 mg/dL 08/08/2025 4:13 PM EST [facility] Comment:Accuracy of a glucos e result obtained from a capillary whole blood specimen relies upon adequate, non-compromised capillary blood flow. If the capillary glucose result is not consistent with the patient's clinical signs and symptoms, glucose testing should be repeated with either an arterial or venous sample on the glucometer or sent to the main labortory for testing. Comment 08/08/2025 4:13 PM EST [facility] Sticker Hand ID Veronica Red 025 4:13 PM EST [facility] Device ID [id number] 08/08/2025 4:13 PM EST [facility] Specimen Type POC Capillary 08/08/2025 4:13 PM EST [facility] Blood Capillary blood specimen / Unknown 08/08/2025 4:11 PM EST 08/08/2025 4:13 PM EST us Oriana Castelan MD LAB POINT OF CARE TE ST DOCKED DEVICE UNSOLICITED RESULTS Final Result Performing Organization Address City/[facility]/ZIP Co de Phone Number [facility] [address] [place] [address] * (ABNORMAL) POCT glucose meter (08/08/2025 11:21 AM EST) POCT Glucose 242(H) 74 - 99 mg/dL 08/08/2025 11:24 AM EST [facility] Comment:Accuracy of a glucos e result obtained from a capillary whole blood specimen relies upon adequate, non-compromised capillary blood flow. If the capillary glucose result is not consistent with the patient's clinical signs and symptoms, glucose testing should be repeated with either an arterial or venous sample on the glucometer or sent to the main labortory for testing. Comment 08/08/2025 11:24 AM EST [facility] Sticker Hand ID Veronica Red 025 11:24 AM EST [facility] Device ID [id number] 08/08/2025 11:24 AM EST [facility] Specimen Type POC Capillary 08/08/2025 11:24 AM EST [facility] Blood Capillary blood specimen / Unknown 08/08/2025 11:21 AM EST 08/08/2025 11:24 AM EST us Oriana Castelan MD LAB POINT OF CARE TE ST DOCKED DEVICE UNSOLICITED RESULTS Final Result Performing Organization Address City/[facility]/ZIP Co de Phone Number [facility] [address] [place] [address] * (ABNORMAL) POCT glucose meter (08/08/2025 8:07 AM EST) POCT Glucose 359(H) 74 - 99 mg/dL 08/08/2025 8:08 AM EST [facility] Comment:Accuracy of a glucos e result obtained from a capillary whole blood specimen relies upon adequate, non-compromised capillary blood flow. If the capillary glucose result is not consistent with the patient's clinical signs and symptoms, glucose testing should be repeated with either an arterial or venous sample on the glucometer or sent to the main labortory for testing. Comment 08/08/2025 8:08 AM EST [facility] Sticker Hand ID Teofilo Veronica 025 8:08 AM EST [facility] Device ID [id number] 08/08/2025 8:08 AM EST [facility] Specimen Type POC Capillary 08/08/2025 8:08 AM EST [facility] Blood Capillary blood specimen / Unknown 08/08/2025 8:07 AM EST 08/08/2025 8:08 AM EST Oriana Castelan MD LAB POINT OF CARE TE ST DOCKED DEVICE UNSOLICITED RESULTS Final Result Performing Organization Address City/State/[facility] Co de Phone Number [facility] [address] [place] [address] * (ABNORMAL) POCT glucose meter (08/08/2025 3:48 AM EST) [facility] Signature POCT Glucose 277(H) 74 - 99 mg/dL 08/08/2025 3:50 AM EST [facility] Comment:Accuracy of a glucos e result obtained from a capillary whole blood specimen relies upon adequate, non-compromised capillary blood flow. If the capillary glucose result is not consistent with the patient's clinical signs and symptoms, glucose testing should be repeated with either an arterial or venous sample on the glucometer or sent to the main labortory for testing. Comment 08/08/2025 3:50 AM EST [facility] Sticker Hand ID Marilu Hernandez 3:50 AM EST [facility] Device ID [id number] 08/08/2025 3:50 AM EST [facility] Specimen Type POC Capillary 08/08/2025 3:50 AM EST [facility] Blood Capillary blood specimen / Unknown 08/08/2025 3:48 AM EST 08/08/2025 3:50 AM EST us Oriana Castelan MD LAB POINT OF CARE TE ST DOCKED DEVICE UNSOLICITED RESULTS Final Result [facility] [address] [place] [id number] * (ABNORMAL) Basic metabolic panel (08/08/2025 1:15 AM EST) Glucose, Plasma 268(H) 74 - 99 mg/dL 08/08/2025 1:[address] [facility] BUN, Plasma 27(H) 7 - 21 mg/dL 08/08/2025 1:[address] [facility] Creatinine, Plasma 1.45(H) 0.70 - 1.20 mg/dL 08/08/2025 1:[address] [facility] BUN/Creatinine Ratio 19 08/08/2025 1:[address] [facility] Sodium, Plasma 133(L) 136 - 145 mmol/L 08/08/2025 1:[address] [facility] Potassium, Plasma 4.3 3.6 - 4.9 mmol/L 08/08/2025 1:[address] [facility] Chloride, Plasma 99 97 - 107 mmol/L 08/08/2025 1:[address] [facility] CO2, Plasma 25 22 - 29 mmol/L 08/08/2025 1:[address] [facility] Anion Gap 9 6 - 16 mmol/L 08/08/2025 1:[address] [facility] Total Calcium, Plasma 9.3 8.9 - 10.2 mg/dL 08/08/2025 1:[address] [facility] eGFRcr 55.5 mL/min/1.7 3m*2 08/08/2025 1:[address] [facility] Comment:Reported eGFRcr in m L/min/1.73m2 is based the CKD-EPI 2020 equation that does not use a race coefficient. Blood Venous blood specimen / Unknown Venipuncture / Unknown 08/08/2025 1:15 AM EST 08/08/2025 1:23 AM EST us Christopher T Radha PA LAB BLOOD ORDERABLES F inal Result [facility] [address] [place] [address] * (ABNORMAL) CBC and Differential (08/08/2025 1:15 AM EST) WBC Count 9.46 3.70 - 10.30 10*3/uL LAB HEMATOLOGY METHOD 08/08/2025 1:[address] [facility] RBC Count 4.49(L) 4.60 - 6.10 10*6/uL LAB HEMATOLOGY METHOD 08/08/2025 1:[address] [facility] HGB 13.4(L) 13.7 - 17.5 g/dL LAB HEMATOLOGY METHOD 08/08/2025 1:[address] [facility] HCT 39.8(L) 40.0 - 51.0 % LAB HEMATOLOGY METHOD 08/08/2025 1:[address] [facility] Platelet Count 138(L) 155 - 369 10*3/uL LAB HEMATOLOGY METHOD 08/08/2025 1:[address] [facility] MCV 89 79 - 98 fL LAB HEMATOLOGY METHOD 08/08/2025 1:[address] [facility] MCH 29.8 26.0 - 32.0 pg LAB HEMATOLOGY METHOD 08/08/2025 1:[address] [facility] MCHC 33.7 30.7 - 35.5 g/dL LAB HEMATOLOGY METHOD 08/08/2025 1:[address] [facility] RDW 11.7 11.5 - 14.5 % LAB HEMATOLOGY METHOD 08/08/2025 1:[address] [facility] MPV 12.6(H) 8.8 - 12.5 fL LAB HEMATOLOGY METHOD 08/08/2025 1:[address] [facility] nRBC 0.0 <=0.0 per 100 WBCs LAB HEMATOLOGY METHOD 08/08/2025 1:[address] [facility] Differential Type Automated LAB HEMATOLOGY METHOD 08/08/2025 1:[address] [facility] Neutrophils % 79 % LAB HEMATOLOGY METHOD 08/08/2025 1:[address] [facility] Lymphocytes % 9 % LAB HEMATOLOGY METHOD 08/08/2025 1:[address] [facility] Monocytes % 10 % LAB HEMATOLOGY METHOD 08/08/2025 1:[address] [facility] Eosinophils % 2 % LAB HEMATOLOGY METHOD 08/08/2025 1:[address] [facility] Basophils % 0 % LAB HEMATOLOGY METHOD 08/08/2025 1:[address] [facility] Immature Granulocytes % 0 % LAB HEMATOLOGY METHOD 08/08/2025 1:[address] [facility] Neutrophils Absolute 7.42(H) 1.60 - 6.10 10*3/uL LAB HEMATOLOGY METHOD 08/08/2025 1:[address] [facility] Lymphocytes Absolute 0.80(L) 1.20 - 3.90 10*3/uL LAB HEMATOLOGY METHOD 08/08/2025 1:[address] [facility] Monocytes Absolute 0.96(H) 0.30 - 0.90 10*3/uL LAB HEMATOLOGY METHOD 08/08/2025 1:[address] [facility] Eosinophils Absolute 0.21 0.00 - 0.50 10*3/uL LAB HEMATOLOGY METHOD 08/08/2025 1:[address] [facility] Basophils Absolute 0.04 0.00 - 0.10 10*3/uL LAB HEMATOLOGY METHOD 08/08/2025 1:[address] [facility] Immature Granulocytes Absolute 0.03 0.00 - 0.06 10*3/uL LAB HEMATOLOGY METHOD 08/08/2025 1:[address] [facility] Blood Venous blood specimen / Unknown Venipuncture / Unknown 08/08/2025 1:15 AM EST 08/08/2025 1:[address] [facility] - 08/08/2025 1:30 AM EST Therapeutic decision making should be based on absolute values, rather than percentages. us Mery TEJEDA LAB BLOOD ORDERABLES F inal Result [facility] [address] [place] [address] * (ABNORMAL) POCT glucose meter (08/07/2025 8:55 PM EST) POCT Glucose 305(H) 74 - 99 mg/dL 08/07/2025 8:56 PM EST [facility] Comment:Accuracy of a glucos e result obtained from a capillary whole blood specimen relies upon adequate, non-compromised capillary blood flow. If the capillary glucose result is not consistent with the patient's clinical signs and symptoms, glucose testing should be repeated with either an arterial or venous sample on the glucometer or sent to the main labortory for testing. Comment 08/07/2025 8:56 PM EST [facility] Sticker Hand ID Marilu Hernandez 8:56 PM EST [facility] Device ID [id number] 08/07/2025 8:56 PM EST [facility] Specimen Type POC Capillary 08/07/2025 8:56 PM EST [facility] Blood Capillary blood specimen / Unknown 08/07/2025 8:55 PM EST 08/07/2025 8:56 PM EST Oriana Castelan MD LAB POINT OF CARE TE ST DOCKED DEVICE UNSOLICITED RESULTS Final Result [facility] [address] [place] [address] * (ABNORMAL) POCT glucose meter (08/07/2025 4:34 PM EST) [facility] POCT Glucose 357(H) 74 - 99 mg/dL 08/07/2025 4:37 PM EST [facility] Comment:Accuracy of a glucos e result obtained from a capillary whole blood specimen relies upon adequate, non-compromised capillary blood flow. If the capillary glucose result is not consistent with the patient's clinical signs and symptoms, glucose testing should be repeated with either an arterial or venous sample on the glucometer or sent to the main labortory for testing. Comment 08/07/2025 4:37 PM EST [facility] Sticker Hand ID Avani Alicia 4:37 PM EST [facility] Device ID [id number] 08/07/2025 4:37 PM EST [facility] Specimen Type POC Capillary 08/07/2025 4:37 PM EST [facility] Blood Capillary blood specimen / Unknown 08/07/2025 4:34 PM EST 08/07/2025 4:37 PM EST us Oriana Castelan MD LAB POINT OF CARE TE ST DOCKED DEVICE UNSOLICITED RESULTS Final Result Performing Organization Address City/[facility]/ZIP Co de Phone Number [facility] [address] [place] [place] [address] * Blood Culture (Aerobic/Anaerobet Set) (08/07/2025 7:16 AM EST) Culture No growth at day 5 08/12/2025 9:[address] [facility] Blood Structure of part of right upper limb / Unknown Venipuncture / Unknown 08/07/2025 7:16 AM EST 08/07/2025 8:[address] [facility] - 08/12/2025 9:01 AM EST Low blood volume submitted, results may be compromised us Luis Cody MD LAB MICROBIOLOGY - GENERAL ORDJunior [facility] Final Result [facility] [address] [place] [address] * (ABNORMAL) Hemoglobin A1c (08/07/2025 6:42 AM EST) Hemoglobin A1c 9.5(H) <5.7 % 08/07/2025 3:[address] [facility] Blood Venous blood specimen / Unknown Venipuncture / Unknown 08/07/2025 6:42 AM EST 08/07/2025 7:[address] [facility] - 08/07/2025 3:41 PM EST HA1C Interpretive Data: Diagnosis of Diabetes: Diabetic > or = 6.5% Pre-diabetic 5.7 to 6.4% Non-diabetic < or = 5.6% Glycemic Targets for Type I and Type II Diabetics: Non- Adults <7.0% Adults <6.0% Children and Adolescents <7.5% Source: [place] [employer]. Standards of medical care in diabetes,2017. Diabetes Care.2017:40 (suppl 1):S1-S135. us Mery TEJEDA LAB BLOOD ORDERABLES F inal Result Performing Organization Address City/[facility]/ZIP Co de Phone Number [facility] [address] [place] [address] * ED HIV 1/2 Antibody/Antigen Screen w/Reflex to HIV 1/2 Differentiation (08/07/2025 6:42 AM EST) HIV 1 & 2 Antibody/Antigen Screen Non Reactive Non Reactive 08/07/2025 7:[address] [facility] Comment:Screening for HIV 1 & 2 antibodies, and P24 antigen is NONREACTIVE. No confirmatory testing is required. Blood Venous blood specimen / Unknown Venipuncture / Unknown 08/07/2025 6:42 AM EST 08/07/2025 7:03 AM EST us Luis Cody MD LAB BLOOD ORDERABLES Final Resu lt Performing Organization Address [facility] Co de Phone Number [facility] [address] [place] [address] * Hepatitis C Antibody - ED (08/07/2025 6:42 AM EST) Hepatitis C Antibody Negative Negative 08/07/2025 7:[address] [facility] Blood Venous blood specimen / Unknown Venipuncture / Unknown 08/07/2025 6:42 AM EST 08/07/2025 7:03 AM EST us Luis Cody MD LAB BLOOD ORDERABLES Final Resu lt Performing Organization Address City/[facility]/ZIP Co de Phone Number [facility] [address] [place] [address] * (ABNORMAL) Sed rate, automated (08/07/2025 6:42 AM EST) Sedimentation Rate 28(H) <20 mm/hr 2024 7:[address] [facility] Blood Venous blood specimen / Unknown Venipuncture / Unknown 08/07/2025 6:42 AM EST 08/07/2025 7:06 AM EST us Luis Cody MD LAB BLOOD ORDERABLES Final Resu lt Performing Organization Address [facility]/ZIP Co de Phone Number [facility] [address] [place] [address] * (ABNORMAL) C-Reactive protein (08/07/2025 6:42 AM EST) Pathologist [facility] CRP, Plasma 178.0(H) <=8.0 mg/L 08/07/2025 7:[address] [facility] Blood Venous blood specimen / Unknown Venipuncture / Unknown 08/07/2025 6:42 AM EST 08/07/2025 7:[address] [facility] - 08/07/2025 7:29 AM EST This CRP test is appropriate for assessment of infection, systemic inflammation and/or tissue injury. To assess cardiovascular disease risk order high sensitivity CRP (CRPH). us Luis Cody MD LAB BLOOD ORDERABLES Final Resu lt Performing Organization Address [facility] Co de Phone Number [facility] [address] [place] [address] * Lactic acid, venous (08/07/2025 6:42 AM EST) [facility] Lactate, Venous, Whole Blood 1.0 0.5 - 2.2 mmol/L LAB HEMATOLOGY METHOD 08/07/2025 6:[address] [facility] Blood Venous blood specimen / Unknown Venipuncture / Unknown 08/07/2025 6:42 AM EST 08/07/2025 6:53 AM EST us Luis Cody MD LAB BLOOD ORDERABLES Final Resu lt Performing Organization Address City/[facility]/ZIP Co de Phone Number [facility] [address] [place] [address] * Type and screen (08/07/2025 6:42 AM EST) Pathologist [facility] ABO/Rh O Positive 08/07/2025 6:54 AM EST BLOOD BANK Antibody Screen Negative 08/07/2025 6:54 AM EST [facility] Specimen Expiration 08/10/2025 23:59 08/07/2025 6:54 AM EST [facility]LOOD [facility] Blood Venous blood specimen / Unknown Venipuncture / Unknown 08/07/2025 6:42 AM EST 08/07/2025 6:54 AM EST Luis Cody MD LAB BLOOD BANK TEST ORDERABLES Final Result Performing Organization Address City/[facility]/ZIP Co de Phone Number BLOOD BANK [address] [place] [address], * Blood Culture (Aerobic/Anaerobet Set) (08/07/2025 6:42 AM EST) Culture No growth at day 5 08/12/2025 8:[address] [facility] Blood Venous blood specimen / Unknown Venipuncture / Unknown 08/07/2025 6:42 AM EST 08/07/2025 7:38 AM EST Luis Cody MD LAB MICROBIOLOGY - GENERAL ORDE RABLES Final Result Performing Organization Address City/[facility]/ZIP Co de Phone Number [facility] [address] [place] [address] * (ABNORMAL) CMP (08/07/2025 6:42 AM EST) Glucose, Plasma 248(H) 74 - 99 mg/dL 08/07/2025 7:[address] [facility] BUN, Plasma 17 7 - 21 mg/dL 08/07/2025 7:[address] [facility] Creatinine, Plasma 1.04 0.70 - 1.20 mg/dL 08/07/2025 7:[address] [facility] BUN/Creatinine Ratio 16 08/07/2025 7:[address] [facility] Sodium, Plasma 131(L) 136 - 145 mmol/L 08/07/2025 7:[address] [facility] Potassium, Plasma 4.3 3.6 - 4.9 mmol/L 08/07/2025 7:[address] [facility] Chloride, Plasma 98 97 - 107 mmol/L 08/07/2025 7:[address] [facility] CO2, Plasma 23 22 - 29 mmol/L 08/07/2025 7:[address] [facility] Anion Gap 10 6 - 16 mmol/L 08/07/2025 7:[address] [facility] Total Calcium, Plasma 10.0 8.9 - 10.2 mg/dL 08/07/2025 7:[address] [facility] Total Protein 7.0 6.3 - 7.9 g/dL 08/07/2025 7:[address] [facility] Albumin, Plasma 3.8 3.5 - 5.2 g/dL 08/07/2025 7:[address] [facility] AST, Plasma 20 10 - 50 U/L 08/07/2025 7:[address] [facility] ALT, Plasma 34 10 - 50 U/L 08/07/2025 7:[address] [facility] Alkaline Phosphatase, Plasma 75 40 - 115 U/L 08/07/2025 7:[address] [facility] Total Bilirubin, Plasma 0.7 0.2 - 1.1 mg/dL 08/07/2025 7:[address] [facility] eGFRcr 82.7 mL/min/1.7 3m*2 08/07/2025 7:[address] [facility] Comment:Reported eGFRcr in m L/min/1.73m2 is based the CKD-EPI 2020 equation that does not use a race coefficient. Blood Venous blood specimen / Unknown Venipuncture / Unknown 08/07/2025 6:42 AM EST 08/07/2025 7:06 AM EST us Luis Cody MD LAB BLOOD ORDERABLES Final Resu lt [facility] [address] [place] [address] * (ABNORMAL) PT-INR (08/07/2025 6:42 AM EST) Prothrombin Time 14.7(H) 12.0 - 14.3 sec LAB COAGULATION METHOD 08/07/2025 7:[address] [facility] INR 1.1 0.9 - 1.1 LAB COAGULATION METHOD 08/07/2025 7:[address] [facility] Blood Venous blood specimen / Unknown Venipuncture / Unknown 08/07/2025 6:42 AM EST 08/07/2025 7:02 AM EST [facility] - 08/07/2025 7:45 AM EST OPTIMAL INR RANGES FOR PATIENT ON ORAL ANTICOAGULANT THERAPY Prevention of venous thromboembolism INR 2.0 to 3.0 In patients with heart disease: Atrial fibrillation INR 2.0 to 3.0 Valvular heart disease INR 2.0 to 3.0 Tissue heart valves INR 2.0 to 3.0 Mechanical prosthetic valves INR 2.5 to 3.5 Prevention of recurrent RI INR 2.5 to 3.5 us Luis Cody MD LAB BLOOD ORDERABLES Final Resu lt [facility] [address] [place] [address] * (ABNORMAL) CBC w/diff (08/07/2025 6:42 AM EST) WBC Count 10.01 3.70 - 10.30 10*3/uL LAB HEMATOLOGY METHOD 08/07/2025 7:[address] [facility] RBC Count 4.81 4.60 - 6.10 10*6/uL LAB HEMATOLOGY METHOD 08/07/2025 7:[address] [facility] HGB 14.3 13.7 - 17.5 g/dL LAB HEMATOLOGY METHOD 08/07/2025 7:[address] [facility] HCT 41.2 40.0 - 51.0 % LAB HEMATOLOGY METHOD 08/07/2025 7:[address] [facility] Platelet Count 132(L) 155 - 369 10*3/uL LAB HEMATOLOGY METHOD 08/07/2025 7:[address] [facility] MCV 86 79 - 98 fL LAB HEMATOLOGY METHOD 08/07/2025 7:[address] [facility] MCH 29.7 26.0 - 32.0 pg LAB HEMATOLOGY METHOD 08/07/2025 7:[address] [facility] MCHC 34.7 30.7 - 35.5 g/dL LAB HEMATOLOGY METHOD 08/07/2025 7:[address] [facility] RDW 11.9 11.5 - 14.5 % LAB HEMATOLOGY METHOD 08/07/2025 7:22 AM [facility] MPV 13.0(H) 8.8 - 12.5 fL LAB HEMATOLOGY METHOD 08/07/2025 7:22 AM [facility] nRBC 0.0 <=0.0 per 100 WBCs LAB HEMATOLOGY METHOD 08/07/2025 7:22 AM [facility] Differential Type Automated LAB HEMATOLOGY METHOD 08/07/2025 7:22 AM [facility] Neutrophils % 74 % LAB HEMATOLOGY METHOD 08/07/2025 7:22 AM [facility] Lymphocytes % 11 % LAB HEMATOLOGY METHOD 08/07/2025 7:22 AM [facility] Monocytes % 13 % LAB HEMATOLOGY METHOD 08/07/2025 7:22 AM [facility] Eosinophils % 1 % LAB HEMATOLOGY METHOD 08/07/2025 7:22 AM [facility] Basophils % 0 % LAB HEMATOLOGY METHOD 08/07/2025 7:22 AM [facility] Immature Granulocytes % 1 % LAB HEMATOLOGY METHOD 08/07/2025 7:22 AM [facility] Neutrophils Absolute 7.45(H) 1.60 - 6.10 10*3/uL LAB HEMATOLOGY METHOD 08/07/2025 7:22 AM [facility] Lymphocytes Absolute 1.14(L) 1.20 - 3.90 10*3/uL LAB HEMATOLOGY METHOD 08/07/2025 7:22 AM [facility] Monocytes Absolute 1.27(H) 0.30 - 0.90 10*3/uL LAB HEMATOLOGY METHOD 08/07/2025 7:22 AM [facility] Eosinophils Absolute 0.06 0.00 - 0.50 10*3/uL LAB HEMATOLOGY METHOD 08/07/2025 7:22 AM [facility] Basophils Absolute 0.04 0.00 - 0.10 10*3/uL LAB HEMATOLOGY METHOD 08/07/2025 7:22 AM [facility] Immature Granulocytes Absolute 0.05 0.00 - 0.06 10*3/uL LAB HEMATOLOGY METHOD 08/07/2025 7:22 AM [facility] Blood Venous blood specimen / Unknown Venipuncture / Unknown 08/07/2025 6:42 AM EST 08/07/2025 7:[address] [facility] - 08/07/2025 7:22 AM EST Therapeutic decision making should be based on absolute values, rather than percentages. us Luis Cody MD LAB BLOOD ORDERABLES Final Resu lt [facility] [address] [place] [address] * EKG now - STAT (adult) (08/07/2025 6:35 AM EST) EKG DIAGNOSIS CLASS Abnormal MUSE ECG Ventricular Rate 72 BPM MUSE ECG Atrial Rate 72 BPM MUSE ECG NC Interval 178 ms MUSE ECG QRSD Interval 90 ms MUSE ECG QT Interval 358 ms MUSE ECG QTC Interval 392 ms MUSE ECG P Surprise 31 degrees MUSE ECG R Surprise -14 degrees MUSE ECG T Wave Surprise 43 degrees MUSE ECG Diagnosis Normal sinus rhythm MUSE ECG Diagnosis Cannot rule out Inferior infarct , age undetermined MUSE ECG Diagnosis Anterolateral infarct , age undetermined MUSE ECG Diagnosis Abnormal ECG MUSE ECG Diagnosis MUSE ECG Diagnosis Confirmed by Sherry Abreu ([id number]) on 08/07/2025 8:35:57 AM MUSE ECG 08/07/2025 6:35 AM EST 08/07/2025 8:35 AM EST us Luis Cody MD ECG ORDERABLES Final Result Performing Organization Address City/[facility] Co de Phone Number MUSE ECG documented in this encounter Visit Diagnoses Diagnosis Cellulitis and abscess of toe of left foot- Primary Cellulitis and abscess of toe of left foot 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 Essential (primary) hypertension Unspecified essential hypertension Hyperlipidemia, mixed Mixed hyperlipidemia Major depressive disorder Major depressive disorder, single episode, unspecified Osteoarthritis Osteoarthrosis, unspecified whether generalized or localized, unspecified site documented in this encounter Admitting Diagnoses Diagnosis Cellulitis and abscess of toe of left foot documented in this encounter Administered Medications Inactive Administered Medications - up to 3 most recent administrations Medication Order MAR Action Action Date Dose Rate Site acetaminophen (Tylenol) tablet 1,000 mg 1,000 mg, Oral, Every 6 hours PRN, Starting on 08/07/25 at 1329, Until 08/16/25 at 1903, Routine, Mild Plus Pain with CPOT DVPRS FLACC PAINAD NPASS NRS Gandhi-Lynch Faces score of 1 or greater OR NIPS score 2 or greater, headaches, fever Given 08/14/2025 8:16 PM EST 1,000 mg Given 08/12/2025 7:51 PM EST 1,000 mg Given 08/12/2025 1:59 PM EST 1,000 mg atorvastatin (Lipitor) tablet 40 mg 40 mg, Oral, Nightly, First dose on 08/07/25 at 2100, Until Discontinued, Routine Given 08/15/2025 9:1 2 PM EST 40 mg Given 08/14/2025 8:15 PM EST 40 mg Given 08/13/2025 9:05 PM EST 40 mg buPROPion SR (Wellbutrin SR) 12 hr tablet 150 mg 150 mg, Oral, Daily, First dose on 08/07/25 at 1455, Until Discontinued, Routine Given 08/16/2025 10:07 AM EST 150 mg Given 08/15/2025 8:01 AM EST 150 mg Given 08/14/2025 8:02 AM EST 150 mg ceFAZolin (Ancef) injection 2 g 2 g, Intravenous, Every 8 hours, First dose on Sat08/13/25 at 1400, Until Discontinued, Routine Given 08/16/2025 12:38 PM EST 2 g Given 08/16/2025 5:51 AM EST 2 g Given 08/15/2025 9:12 PM EST 2 g cholecalciferol (Vitamin D-3) tablet 1,000 Units 1,000 Units, Oral, Daily, First dose on 08/07/25 at 1455, Until Discontinued Given 08/16/2025 10:08 AM EST 1,000 Units Given 08/15/2025 8:03 AM EST 1,000 Units Given 08/14/2025 8:02 AM EST 1,000 Units dextrose 10 % (D10W) bolus 125 mL 125 mL, Intravenous, Every 15 min PRN, Starting on 08/07/25 at 1449, Until 08/16/25 at 1903, Administer over 15 Minutes, Routine, low blood sugar BG 51-89 mg/dL dextrose 10 % (D10W) bolus 250 mL 250 mL, Intravenous, Every 15 min PRN, Starting on 08/07/25 at 1449, Until 08/16/25 at 1903, Administer over 15 Minutes, Routine, PRN low blood sugar BG =/<50 mg/dL docusate sodium (Colace) capsule 250 mg 250 mg, Oral, Daily, First dose on 08/08/25 at 1215, Until Discontinued, Routine Given 08/16/2025 10:10 AM EST 250 mg Given 08/15/2025 8:01 AM EST 250 mg Given 08/14/2025 8:02 AM EST 250 mg finasteride (Proscar) tablet 5 mg 5 mg, Oral, Daily, First dose on 08/07/25 at 1455, Until Discontinued, Routine Given 08/16/2025 10:08 AM EST 5 mg Given 08/15/2025 8:01 AM EST 5 mg Given 08/14/2025 8:02 AM EST 5 mg gadoterate meglumine (Dotarem) 0.5 mmol/mL contrast injection 17.5 mL 17.5 mL (0.2 mL/kg 87.5 kg), Intravenous, Once in imaging, 1 dose, Starting on 08/09/25 at 0059, Until 08/09/25 at 0129, Routine, Imaging Protocol Orders Given 08/09/2025 1:29 AM EST 17.5 mL glucagon (human recombinant) injection 1 mg 1 mg, Intramuscular, Every 15 min PRN, Starting on 08/07/25 at 1449, Until 08/16/25 at 1903, Routine, low blood sugar per Hypoglycemia Prevention and Treatment protocol glucose (Glutose) 40 % oral gel 15-30 grams of glucose 15-30 grams of glucose, Sublingual, Every 15 min PRN, Starting on 08/07/25 at 1449, Until 08/16/25 at 1903, Routine, low blood sugar, per Hypoglycemia Prevention and Treatment protocol hydroCHLOROthiazide (HYDRODiuril) tablet 25 mg 25 mg, Oral, Daily, First dose on 08/07/25 at 1455, Until Discontinued, Routine Given 08/16/2025 10:08 AM EST 25 mg Given 08/15/2025 8:01 AM EST 25 mg Given 08/14/2025 8:02 AM EST 25 mg HYDROmorphone (Dilaudid) injection 0.5 mg 0.5 mg, Intravenous, Once, 1 dose, On 08/07/25 at 0700, STAT Given 08/07/2025 7:58 AM EST 0.5 mg ibuprofen tablet 400 mg 400 mg, Oral, Every 6 hours PRN, Starting on 08/07/25 at 1329, Until 08/16/25 at 1903, Routine, Mild Plus Pain with CPOT DVPRS FLACC PAINAD NPASS NRS Gandhi-Lynch Faces score of 1 or greater OR NIPS score 2 or greater Given 08/14/2025 8:16 PM EST 4 00 mg Given 08/14/2025 10:33 AM EST 400 mg Given 08/12/2025 2:00 PM EST 400 mg insulin glargine-yfgn 100 UNIT/ML injection 15 Units 15 Units, Subcutaneous, Nightly, First dose (after last modification) on 08/07/25 at 2100, Until Discontinued, Routine Given 08/07/2025 9:03 PM EST 15 Units Left Lower Abdomen insulin glargine-yfgn 100 UNIT/ML injection 15 Units 15 Units, Subcutaneous, 2 times daily, First dose (after last modification) on 08/08/25 at 1215, Until Discontinued, Routine Given 08/09/2025 9:18 AM EST 15 Units Left Lower Abdomen Given 08/08/2025 8:40 PM EST 15 Units Le ft Upper Arm (Back) Given 08/08/2025 11:56 AM EST 15 Units L eft Lower Abdomen insulin glargine-yfgn 100 UNIT/ML injection 20 Units 20 Units, Subcutaneous, 2 times daily, First dose (after last modification) on 08/09/25 at 2100, Until Discontinued, Routine Given 08/16/2025 10:10 AM EST 20 Units Left Lower Abdomen Given 08/15/2025 9:12 PM EST 20 Units Le ft Lower Abdomen Given 08/15/2025 8:01 AM EST 20 Units Le ft Upper Arm (Back) insulin lispro (Admelog) 100 units/mL injection - Correction - Resistant Dose 0-10 Units, Subcutaneous, 3 times daily with meals, First dose on 08/07/25 at 1745, Until Discontinued, Routine Given 08/16/2025 12:38 PM EST 6 Units Left Lower Abdomen Given 08/16/2025 10:09 AM EST 2 Units L eft Lower Abdomen Given 08/15/2025 4:43 PM EST 2 Units Le ft Lower Abdomen insulin lispro (Admelog) injection - Correction - Nighttime Dose 0-3 Units, Subcutaneous, 2 times nightly (2100 & 0300), First dose on 08/07/25 at 2100, Until Discontinued, Routine Given 08/15/2025 9:13 PM EST 1 Units Left Lower Abdomen Given 08/15/2025 3:02 AM EST 1 Units Le ft Lower Abdomen Given 08/14/2025 8:12 PM EST 2 Units Le ft Lower Abdomen Insulin Lispro (Admelog, HumaLOG) 100 UNIT/ML injection 5 Units 5 Units, Subcutaneous, 3 times daily with meals, First dose on 08/07/25 at 1730, Until Discontinued, Routine Given 08/10/2025 11:40 AM EST 5 Units Left Lower Abdomen Given 08/10/2025 8:30 AM EST 5 Units Le ft Lower Abdomen Given 08/09/2025 6:18 PM EST 5 Units Le ft Lower Abdomen Insulin Lispro (Admelog, HumaLOG) 100 UNIT/ML injection 8 Units 8 Units, Subcutaneous, 3 times daily with meals, First dose (after last modification) on Sat08/10/25 at 1730, Until Discontinued, Routine Given 08/16/2025 12:38 PM EST 8 Units Left Lower Abdomen Given 08/16/2025 10:08 AM EST 8 Units L eft Lower Abdomen Given 08/15/2025 4:41 PM EST 8 Units Le ft Lower Abdomen lisinopril tablet 40 mg 40 mg, Oral, Daily, First dose on 08/07/25 at 1455, Until Discontinued, Routine Given 08/16/2025 10: 09 AM EST 40 mg Given 08/15/2025 8:01 AM EST 40 mg Given 08/14/2025 8:02 AM EST 40 mg melatonin tablet 3 mg 3 mg, Oral, Nightly PRN, Starting on 08/07/25 at 1330, Until 08/16/25 at 1903, Routine, sleep Given 08/14/2025 8:16 PM EST 3 mg Given 08/11/2025 8:53 PM EST 3 mg meropenem (Merrem) 2 g in sodium chloride 0.9 % 100 mL IVPB 2 g, Intravenous, Every 8 hours, First dose on e 08/10/25 at 1645, Until Discontinued, at 50 mL/hr, Administer over 3 Hours, Routine New Bag 08/13/2025 8:27 AM EST 2 g 50 mL/hr New Bag 08/13/2025 12:05 AM EST 2 g 50 mL/hr New Bag 08/12/2025 4:19 PM EST 2 g 50 mL/hr multivitamin (Theragran-M) tablet 1 tablet 1 tablet, Oral, Daily, First dose on 08/07/25 at 1455, Until Discontinued, Routine Given 08/16/2025 10:08 AM EST 1 tablet Given 08/15/2025 8:01 AM EST 1 tablet Given 08/14/2025 8:02 AM EST 1 tablet piperacillin-tazobactam (Zosyn) 3.375 g in sodium chloride 0.9% 100 mL IVPB (vial adapter required) 3.375 g, Intravenous, Every 6 hours, First dose on 08/07/25 at 1945, Until Discontinued, Routine New Bag 08/10/2025 1:11 PM EST 3.375 g 36.7 mL/hr New Bag 08/10/2025 8:30 AM EST 3.375 g 36.7 mL/hr New Bag 08/10/2025 1:48 AM EST 3.375 g 36.7 mL/hr polyethylene glycol (Miralax) packet 17 g 17 g, Oral, Daily, First dose on 08/08/25 at 1215, Until Discontinued, Routine Given 08/16/2025 10:09 AM EST 17 g Given 08/15/2025 8:04 AM EST 17 g Given 08/14/2025 8:02 AM EST 17 g Povidone-Iodine 5 % swab solution 1 Application Nasal, Once, 1 dose, On Sat08/11/25 at 1230, Routine Given 08/11/2025 11:58 AM EST 1 Application senna (Senokot) tablet 17.2 mg 17.2 mg, Oral, Once, 1 dose, On 08/15/25 at 0145, Routine Given 08/15/2025 1:04 AM EST 17.2 mg sodium chloride 0.9 % flush 10 mL 10 mL, Intravenous, Every 12 hours, First dose on 08/07/25 at 1335, Until Discontinued, Routine Given 08/16/2025 12:38 PM EST 10 mL Given 08/15/2025 2:02 PM EST 10 mL Given 08/15/2025 12:51 AM EST 10 mL sodium chloride 0.9 % flush 10 mL 10 mL, Intravenous, As needed, Starting on 08/07/25 at 1322, Until 08/16/25 at 1903, Routine, line care sodium chloride 0.9 % flush 10 mL 10 mL, Intravenous, Every 12 hours, First dose on 08/11/25 at 1230, Until Discontinued, Routine, Holding - Preprocedure Given 08/11/2025 11:58 AM EST 10 mL vancomycin (Vancocin) 1,250 mg in sodium chloride 0.9% 250 mL IVPB (vial adapter required) 1,250 mg, Intravenous, Every 12 hours, First dose (after last modification) on 08/09/25 at 1800, Until Discontinued, at 220 mL/hr, Routine New Bag 08/13/2025 6:03 AM EST 1,250 mg 220 mL/hr New Bag 08/12/2025 6:22 PM EST 1,250 mg 220 mL/hr New Bag 08/12/2025 6:06 AM EST 1,250 mg 220 mL/hr vancomycin (Vancocin) 2,000 mg in sodium chloride 0.9 % 250 mL 2,000 mg, Intravenous, Once, 1 dose, On 08/07/25 at 2000, at 147.5 mL/hr, STAT New Bag 08/07/2025 9:16 PM EST 2,000 mg 147.5 mL/h r Vancomycin HCl in NaCl (Vancocin) IVPB 1,000 mg 1,000 mg, Intravenous, Every 12 hours, First dose (after last reorder) on 08/08/25 at 0900, Until Discontinued, at 250 mL/hr, Routine Given 08/09/2025 9:19 AM EST 1,000 mg 250 mL/hr Given 08/08/2025 8:09 PM EST 1,000 mg 250 mL/hr Given 08/08/2025 8:14 AM EST 1,000 mg 250 mL/hr documented in this encounter Active and Recently Administered Medications Times are shown in EST. Scheduled Medication Order 08/14/2025 08/15/2025 08/16/2025 atorvastatin (Lipitor) tablet 40 mg 40 mg, Oral, Nightly, First dose on 08/07/25 at 2100, Until Discontinued, Routine 2014 (Given - Provider: Tamara Lou RN) 2111 (Given - Provider: Amisha Velásquez RN) buPROPion SR (Wellbutrin SR) 12 hr tablet 150 mg 150 mg, Oral, Daily, First dose on 08/07/25 at 1455, Until Discontinued, Routine 0802 (Given - Provider: Matilde Ornelas RN) 0801 (Given - Provider: Meena Chou LPN) 1007 (Given - Provider: Marina Madison, ORLIN) ceFAZolin (Ancef) injection 2 g 2 g, Intravenous, Every 8 hours, First dose on Sat08/13/25 at 1400, Until Discontinued, Routine 0532 (Given - Provider: Gucci Abel RN)1419 (Given - Provider: Matilde Ornelas RN)2258 (Given - Provider: Tamara Lou RN) 0632 (Given - Provider: Tamara Lou RN)1346 (Given - Provider: Olga Tomlin RN)211 (Given - Provider: Amisha Velásquez, ORLIN) 0551 (Given - Provider: Amisha Velásquez, ORLIN)1238 (Given - Provider: Marina Madison, ORLIN) cholecalciferol (Vitamin D-3) tablet 1,000 Units 1,000 Units, Oral, Daily, First dose on 08/07/25 at 1455, Until Discontinued 0802 (Given - Provider: Matilde Ornelas RN) 0803 (Given - Provider: Meena Chou LPN) 1008 (Given - Provider: Marina Madison, ORLIN) docusate sodium (Colace) capsule 250 mg 250 mg, Oral, Daily, First dose on 08/08/25 at 1215, Until Discontinued, Routine 0802 (Given - Provider: Matilde Ornelas RN) 0801 (Given - Provider: Meena Chou LPN) 1010 (Given - Provider: Marina Madison RN) finasteride (Proscar) tablet 5 mg 5 mg, Oral, Daily, First dose on 08/07/25 at 1455, Until Discontinued, Routine 0802 (Given - Provider: Matilde Ornelas RN) 0801 (Given - Provider: Meena Chou LPN) 1008 (Given - Provider: Marina Madison RN) hydroCHLOROthiazide (HYDRODiuril) tablet 25 mg 25 mg, Oral, Daily, First dose on 08/07/25 at 1455, Until Discontinued, Routine 0802 (Given - Provider: Matilde Ornelas RN) 0801 (Given - Provider: Meena Chou LPN) 1008 (Given - Provider: Marina Madison RN) insulin glargine-yfgn 100 UNIT/ML injection 20 Units 20 Units, Subcutaneous, 2 times daily, First dose (after last modification) on 08/09/25 at 2100, Until Discontinued, Routine 0803 (Given - Provider: Matilde Ornelas RN)2010 (Given - Provider: Tamara Lou RN) 0801 (Given - Provider: Meena Chou LPN)211 (Given - Provider: Amisha Velásquez RN) 1010 (Given - Provider: Marina Madison RN) insulin lispro (Admelog) 100 units/mL injection - Correction - Resistant Dose 0-10 Units, Subcutaneous, 3 times daily with meals, First dose on 08/07/25 at 1745, Until Discontinued, Routine 0803 (Given - Provider: Matilde Ornelas RN - Comment: [phone] (Given - Provider: Matilde Ornelas RN)1652 (Given - Provider: Matilde Ornelas RN) 0757 (Given - Provider: Meena Chou LPN)1205 (Given - Provider: Meena Chou LPN)1643 (Given - Provider: Meena Chou LPN) 1009 (Given - Provider: Marina Madison RN)1238 (Given - Provider: Marina Madison RN)1730 (Canceled Entry - Provider: Automatic Discharge Provider - Comment: Automatically canceled at discontinue of medication order) insulin lispro (Admelog) injection - Correction - Nighttime Dose 0-3 Units, Subcutaneous, 2 times nightly (2100 & 0300), First dose on 08/07/25 at 2100, Until Discontinued, Routine 0315 (Not Given - Provider: Gucci Abel RN - Reason: Order parameters not met)2011 (Given - Provider: Tamara Lou RN) 301 (Given - Provider: Tamara Lou RN)2112 (Given - Provider: Amisha Velásquez, ORLIN) 035 (Not Given - Provider: Amisha Velásquez RN - Reason: Order parameters not met) Insulin Lispro (Admelog, HumaLOG) 100 UNIT/ML injection 8 Units 8 Units, Subcutaneous, 3 times daily with meals, First dose (after last modification) on Sat08/10/25 at 1730, Until Discontinued, Routine 0803 (Given - Provider: Matilde Ornelas RN)1154 (Given - Provider: Matilde Ornelas RN)1652 (Given - Provider: Matilde Ornelas RN) 0759 (Given - Provider: Meena Chou LPN)1206 (Given - Provider: Meena Chou LPN)1641 (Given - Provider: Meena Chou LPN) 1008 (Given - Provider: Marina Madison RN)1238 (Given - Provider: Marina Madison RN)1730 (Canceled Entry - Provider: Automatic Discharge Provider - Comment: Automatically canceled at discontinue of medication order) lisinopril tablet 40 mg 40 mg, Oral, Daily, First dose on Sat08/07/25 at 1455, Until Discontinued, Routine 0802 (Given - Provider: Matilde Ornelas RN) 0801 (Given - Provider: Meena Chou LPN) 1009 (Given - Provider: Marina Madison RN) multivitamin (Theragran-M) tablet 1 tablet 1 tablet, Oral, Daily, First dose on Sat08/07/25 at 1455, Until Discontinued, Routine 0802 (Given - Provider: Matilde Ornelas RN) 0801 (Given - Provider: Meena Chou LPN) 1008 (Given - Provider: Marina Madison RN) polyethylene glycol (Miralax) packet 17 g 17 g, Oral, Daily, First dose on Sat08/08/25 at 1215, Until Discontinued, Routine 0802 (Given - Provider: Matilde Ornelas RN) 0804 (Given - Provider: Meena Chou LPN) 1009 (Given - Provider: Marina Madison, ORLIN) senna (Senokot) tablet 17.2 mg (COMPLETED) 17.2 mg, Oral, Once, 1 dose, On 08/15/25 at 0145, Routine 0104 (Given - Provider: Tamara Lou, ORLIN) sodium chloride 0.9 % flush 10 mL(Linked Group 1) 10 mL, Intravenous, Every 12 hours, First dose on 08/07/25 at 1335, Until Discontinued, Routine 1249 (Given - Provider: Matilde Ornelas RN)2022 (Given - Provider: Tamara Lou RN) 0051 (Given - Provider: Tamara Lou RN)1402 (Given - Provider: Olga Tomlin RN) 0037 (Not Given - Provider: Amisha Velásquez RN - Reason: Order parameters not met)1238 (Given - Provider: Marina Madison, ORLIN) PRN Medication Order 08/14/2025 08/15/2025 08/16/2025 acetaminophen (Tylenol) tablet 1,000 mg 1,000 mg, Oral, Every 6 hours PRN, Starting on 08/07/25 at 1329, Until 08/16/25 at 1903, Routine, Mild Plus Pain with CPOT DVPRS FLACC PAINAD NPASS NRS Gandhi-Lynch Faces score of 1 or greater OR NIPS score 2 or greater, headaches, fever 1035 (Canceled Entry - Provider: Klarissa Whitehead RN)2015 (Given - Provider: Tamara Lou RN) dextrose 10 % (D10W) bolus 125 mL(Linked Group 2) 125 mL, Intravenous, Every 15 min PRN, Starting on 08/07/25 at 1449, Until 08/16/25 at 1903, Administer over 15 Minutes, Routine, low blood sugar BG 51-89 mg/dL dextrose 10 % (D10W) bolus 250 mL(Linked Group 2) 250 mL, Intravenous, Every 15 min PRN, Starting on 08/07/25 at 1449, Until 08/16/25 at 1903, Administer over 15 Minutes, Routine, PRN low blood sugar BG =/<50 mg/dL glucagon (human recombinant) injection 1 mg(Linked Group 2) 1 mg, Intramuscular, Every 15 min PRN, Starting on 08/07/25 at 1449, Until 08/16/25 at 1903, Routine, low blood sugar per Hypoglycemia Prevention and Treatment protocol glucose (Glutose) 40 % oral gel 15-30 grams of glucose(Linked Group 2) 15-30 grams of glucose, Sublingual, Every 15 min PRN, Starting on 08/07/25 at 1449, Until Sat08/16/25 at 1903, Routine, low blood sugar, per Hypoglycemia Prevention and Treatment protocol ibuprofen tablet 400 mg 400 mg, Oral, Every 6 hours PRN, Starting on 08/07/25 at 1329, Until 08/16/25 at 1903, Routine, Mild Plus Pain with CPOT DVPRS FLACC PAINAD NPASS NRS Gandhi-Lynch Faces score of 1 or greater OR NIPS score 2 or greater 1033 (Given - Provider: Klarissa Whitehead, ORLIN)2015 (Given - Provider: Tamara Lou, ORLIN) melatonin tablet 3 mg 3 mg, Oral, Nightly PRN, Starting on 08/07/25 at 1330, Until Sat08/16/25 at 1903, Routine, sleep 2016 (Given - Provider: Tamara Lou, RN) sodium chloride 0.9 % flush 10 mL(Linked Group 1) 10 mL, Intravenous, As needed, Starting on 08/07/25 at 1322, Until Sat08/16/25 at 1903, Routine, line care Linked Groups Order Group 1: Insert peripheral IV (COMPLETED) Once, On 08/07/25 at 1323, For 1 occurrence And Saline lock IV (COMPLETED) Once, On 08/07/25 at 1323, For 1 occurrence And sodium chloride 0.9 % flush 10 mLJump to med 10 mL, Intravenous, Every 12 hours, First dose on 08/07/25 at 1335, Until Discontinued, Routine And sodium chloride 0.9 % flush 10 mLJump to med 10 mL, Intravenous, As needed, Starting on 08/07/25 at 1322, Until 08/16/25 at 1903, Routine, line care Group 2: glucose (Glutose) 40 % oral gel 15-30 grams of glucoseJump to med 15-30 grams of glucose, Sublingual, Every 15 min PRN, Starting on 08/07/25 at 1449, Until 08/16/25 at 1903, Routine, low blood sugar, per Hypoglycemia Prevention and Treatment protocol Or dextrose 10 % (D10W) bolus 125 mLJump to med 125 mL, Intravenous, Every 15 min PRN, Starting on 08/07/25 at 1449, Until 08/16/25 at 1903, Administer over 15 Minutes, Routine, low blood sugar BG 51-89 mg/dL Or dextrose 10 % (D10W) bolus 250 mLJump to med 250 mL, Intravenous, Every 15 min PRN, Starting on 08/07/25 at 1449, Until 08/16/25 at 1903, Administer over 15 Minutes, Routine, PRN low blood sugar BG =/<50 mg/dL Or glucagon (human recombinant) injection 1 mgJump to med 1 mg, Intramuscular, Every 15 min PRN, Starting on 08/07/25 at 1449, Until 08/16/25 at 1903, Routine, low blood sugar per Hypoglycemia Prevention and Treatment protocol documented in this encounter Additional Health Concerns Assessment Noted Time A Body Mass Index follow-up plan has been documented for the patient 08/16/2025 2:54 PM EST documented as of this encounter Care Teams Water Conservationist Relationship Specialty Start Date End Date Iraida Reese APRN [address] [place] [address] PCP - General 08/07/25 documented as of this encounter
--- OUTSIDE RECORDS SUMMARY | 2025-08-11 12:00 | XMS_ITS | Encounter Summary ---
Author Organization Healthcare Address [address] [id number] Care Team Providers Care Acute Care Nursing Assistant Name Role Phone Iraida Reese APRN Primary Care Provider [phone] Reason for Visit * Reason Comments Foot Infection * Auth/Cert (Routine) Specialty Diagnoses / Procedures Referred By Contac t Referred To Contact Diagnoses Cellulitis and abscess of toe of left foot necrotizing fasciitis of left foot Oriana Castelan MD [address] [place] [address] Phone: tel: fax: [facility] Inpatient [address] [place] [address] Referral ID Status Reason Start Date Expiration Date Visits Re quested Visits Authorized [id number] 1 1 Encounter Details Date Type Department Care Team (Late st Contact Info) Description 08/11/2025 12:00 PM EST - 08/11/2025 1:30 PM EST Surgery [facility] OPERATING ROOM [address] [place] [address] Andie Moyer MD [address] [facility] [address] [place] [address] AMPUTATION,TOE Surgery Details Date/Time Status Location OR Service Patient Class Case Class Case Type Trauma Case? 08/11/2025 12:00 PM Posted [facility] OR 16 Vascular Surgery Inpatient T - Timed: to be done within 24 hrs Panel 1 Procedure LRB Anes Op Region Wound Class Comments AMPUTATION,TOE Left General Toes Class III/ Cont aminated Surgeon Surgeon Role Service Panel Andie Moyer MD Primary Vascular Surgery 1 Aakash Frausto MD Resident - Assisting 1 documented in this encounter Social History Tobacco Use Types Packs/Day Years [...] any time in the past 12 m [facility], were you homeless or living in a correction (including now)? No 08/09/2025 [facility] Utilities Answer Date Recorded In the past 12 months has e electric, gas, oil, or water company threatened to shut off services in your home? No 08/09/2025 Sex and Gender Information Value Date Recorded Sex Assigned at Not on file Legal Sex Male 6:50 PM EDT Gender Identity Not on file Sexual Orientation Not on file documented as of this encounter Last Filed Vital Signs Vital Sign Reading Time Taken Comments Blood Pressure 111/63 08/11/2025 1:30 PM EST Pulse 62 08/11/2025 1:30 PM EST Temperature 36.4 C (97.6 F) 08/11/2025 1:15 PM EST Respiratory Rate 16 08/11/2025 1:30 PM EST Oxygen Saturation 100% 08/11/2025 1:30 PM EST Inhaled Oxygen Concentration - - Weight 79.8 kg (176 lb) 08/11/2025 11:48 AM EST Height 170.2 cm (5' 7 ) 08/07/2025 5:18 AM EST Body Mass Index 27.69 08/08/2025 8:19 AM EST documented in this encounter Functional Status * PT Therapeutic Procedures Time Entry Question Answer Date of Assessment Author Gait Training Time Entry 13 08/12/2025 3:25 PM EST Cayetano Tillman * HEENT Question Answer Date of Assessment Author DANAY (WDPoli) WDL 08/16/2025 8:00 AM EST Marina Jason ra, RN * Presentation Question Answer Date [...] of Assessment Author 27.8 08/16/2025 5:38 AM EST Carmen Sun * Percent Excess Weight Loss Answer Date of Assessment Author 0 08/07/2025 5:18 AM EST Amber Mayer, ORLIN * Total Weight Change Percent Answer Date [...] of Assessment Author 0.37 08/16/2025 5:38 AM Cramen Stanley * IBW in kg (Bariatric) Answer [...] Author used independently 08/15/2025 10:20 AM Olga Prajapati, RN * Supportive Measures Answer Date of Assessment Author active listening utilized;go al-setting facilitated;decision-making supported 08/15/2025 10:20 PM Amisha Canales RN * Oral Nutrition Promotion Answer Date of Assessment Author social interaction promoted 08/15/2025 10:20 AM Olga Schumacher, RN * Pressure Reduction Techniques Answer Date of Assessment Author frequent weight shift encouraged 08/15/2025 10:2 0 PM Amisha Canales, RN * Pain Management Interventions Answer Date of Assessment Author medication (see MAR) 08/16/2025 2:43 PM EST Marina Hannah RN * Assistive Device Utilized Answer Date [...] Author other (see comments) 08/12/2025 9:04 AM EST Klarissa Pretty RN * Trust Relationship/Rapport Answer Date of [...] Author other (see comments) 08/14/2025 7:04 AM EST Matilde Dominguez RN * Outcome Evaluation Answer Date of [...] to performing 08/09/2025 8:00 PM Yobany Greene, ORLIN General Care Management calm environment promoted 08/09/2025 [...] RN What day is the transport expected? [id number] 08/16/2025 2:00 PM Amisha López RN Who [...] Vidhya Pino RN * Acuity/Destination Question Answer Date of Assessment Author Patient Acuity 3 08/07/2025 5:21 AM Carol Camarillo RN * PACU Interventions Question Answer Date of Assessment Author Warm [place] Applied 08/11/2025 1:15 PM Vidhya De Jesus RN Additional Comfort/Environmental Interventions Warm blanket 08/11/2025 1:15 PM EST Vidhya Magdaleno RN * Weight Change 24 hrs Answer [...] Answer Date of Assessment Author Level of Tun[place] Modified [place] 08/12/2025 3:25 PM Cayetano Garcia Physical/Nonphysical Assist HOB elevated 08/12/2025 3:25 PM Cayetano Garcia * Bed Mobility Exam: Sit to Supine Question Answer Date of Assessment Author Level of [place] Modified independence 08/12/2025 3:25 PM Cayetano Garcia Physical/Nonphysical Assist HOB elevated 08/12/2025 3:25 PM Cayetano Garcia * Transfer Exam: Sit to stand Question Answer Date of Assessment Author Level of [place] Stand-by assist 08/12/2025 3:25 PM Cayetano Garcia Physical/Nonphysical Assist Verbal Cues;Minimal cues 08/12/2025 3:25 PM Cayetano Garcia Assistive Device Crutches, axillary 08/12/2025 3:25 PM Cayetano Garcia * Transfer Exam: Stand to Sit Question Answer Date of Assessment Author Level of [place] Stand-by assist 08/12/2025 3:25 PM EST Ridner, Cayetano Physical/Nonphysical Assist Verbal Cues;Minimal cues 08/12/2025 3:25 PM Cayetano Garcia Assistive Device Crutches, axillary 08/12/2025 3:25 PM Cayetano Garcia * Postural Appearance Question Answer Date of Assessment Author Posture WFL 08/12/2025 3:25 PM Cayetano Marquis * General Question Answer Date of Assessment Author Next PT Re-Assessment Date [id number] 08/12/2025 3:2 5 PM Cayetano Garcia Date of PT Session [id number] 08/12/2025 3:25 PM Cayetano Garcia Patient/Family Goals [...] details. 08/12/2025 3:25 PM Cayetano Garcia * HL Score Question Answer Date of Assessment Author [facility] Daily Mobility Goal 7 08/16/2025 8:0 0 AM Marina Velázquez RN [facility] Daily Mobility Score 7 08/16/2025 8: 00 AM Marina Velázquez, ORLIN * Plan of Care Reviewed With Answer Date of Assessment Author patient 08/15/2025 10:20 PM Junior Canales RN * Pressure Injury Prevention (PIP) Interventions Question Answer Date of Assessment Author Pressure Reducing Devices Pillow 08/16/2025 8:00 AM Marina Velázquez, ORLIN Bed Type Acute Care Bed 08/16/2025 8:00 AM Marina Maya RN * Behavioral Expectations Question Answer Date of Assessment Author Behavioral Expectations revi ewed with patient/guardian and family/partner in care? Yes 08/07/2025 4:41 PM Judy Akhtar, ORLIN * Vital Signs Question Answer Date of Assessment Author BP 127/76 08/16/2025 11:10 AM EST Inte kristoferce, Doc Flowsheet In Temp 97.5 08/16/2025 11:10 AM EST Inte rface, Doc Flowsheet In Pulse 71 08/16/2025 11:10 AM EST Inte kristoferce, Doc Flowsheet In Resp 18 08/16/2025 3:16 AM EST Amisha Velásquez RN Heart Rate Source Monitor 08/11/2025 1:35 PM EST Vidhya Magdaleno, assembling machine operator Rhythm NSR 08/11/2025 1:15 PM EST Vidhya [...] Method Face tent 08/11/2025 1:15 PM Vidhya Pino, RN Oximetry Probe Site Location Right Digit 08/07/2025 2:09 PM EST Amada Mendenhall * Patient Observation Question Answer Date of Assessment Author Patient Observations asked for signout a t this time 08/11/2025 1:35 PM EST Vidhya Magdaleno, RN * Neurological Question Answer Date of Assessment Author Neuro (WDPoli) [facility] 08/11/2025 4:00 AM EST Kayla Vaz RN * Gastrointestinal Question Answer Date of Assessment Author Gastrointestinal (JUVE) [facility] 08/16/2025 8:00 AM EST Marina Madison RN * Peripheral Vascular Question Answer Date of Assessment Author Peripheral Vascular (JUVE) [facility] 08/16/2025 8:00 AM EST Marina Madison RN LLE Edema Non-pitting 08/13/2025 4:00 AM EST Amada Leger RN Capillary Refill Less than/equal to 2 seconds (All extremities) 08/15/2025 4:00 PM EST Hatfull, Meena L, FARM AGENT Pulses L pedal 08/15/2025 4:00 PM EST Hatfu ll, Meena L, FARM AGENT Cyanosis None 08/15/2025 4:00 PM EST Hatfu ll, Meena L, FARM AGENT Edema Left lower extremity 08/14/2025 3:10 PM E Matilde Nick, RN PVS Additional Assessments LLE 08/11/2025 1:15 PM EST Vidhya Magdaleno, RN * RUE Neurovascular Assessment Question Answer Date of Assessment Author R Radial Pulse +2 08/15/2025 4:00 PM EST Hat full, Meena L, FARM AGENT * LUE Neurovascular Assessment Question Answer Date of Assessment Author L Radial Pulse +2 08/15/2025 4:00 PM EST Hat full, Meena L, FARM AGENT * RLE Neurovascular Assessment Question Answer Date of Assessment Author R Pedal Pulse +2 08/15/2025 4:00 PM EST Hatf ull, Meena L, FARM AGENT * LLE Neurovascular Assessment Question Answer Date of Assessment Author LLE Capillary Refill Less than/equal to 2 seconds 08/14/2025 3:10 PM EST Matilde Ornelas RN LLE Color Unable to assess 08/12/2025 4:41 PM EST Klarissa Stephens, RN LLE Temperature/Moisture Warm 08/13/2025 4:00 PM EST Robetr Chadiez RN L Pedal Pulse +2 08/15/2025 4:00 PM EST Hatf ull, Meena L, FARM AGENT LLE Movement Present 08/13/2025 8:00 AM EST Valerie Hernandez RN * Musculoskeletal Question Answer Date of Assessment Author RUE Full movement 08/11/2025 4:00 PM EST Garrett Carrasco RN RLE Full movement 08/11/2025 4:00 PM EST Garrett Carrasco RN LUE Full movement 08/11/2025 4:00 PM EST Garrett Carrasco RN LLE Surgery 08/16/2025 8:00 AM EST Marina Jason ra, RN Musculoskeletal (WDL) X 08/16/2025 8:00 AM Marina Velázquez RN * Urine Assessment Question Answer Date of Assessment Author Urinary Incontinence No 08/15/2025 4:00 PM E Meena Tran LPN * Psychosocial Question Answer Date of Assessment Author Psychosocial (WDL) WDL 08/16/2025 8:00 AM Marina Velázquez RN Length of Time/Family Visitation 0-5 min 08/11/20 4:00 AM EST Kayla Vaz RN * Unmeasured Output Question Answer Date of Assessment Author Unmeasured Stool Occurrence (hourly total) 1 08/15/2025 12:33 AM EST Kurt Willian * Intake Question Answer Date of Assessment Author [address] 08/13/2025 8:20 AM Valerie Baez RN * Output (mL) Question Answer Date of Assessment Author Urine Color Yellow/straw 08/15/2025 7:29 PM EST Emers on, Carmen Urine Appearance Clear 08/15/2025 7:29 PM EST E merson, Carmen Urine Odor No odor 08/15/2025 7:29 PM [...] Question Answer Date of Assessment Author Cardiac ([facility]) [facility] 08/16/2025 8:00 AM Marina Narvaez RN * Respiratory Question Answer Date of Assessment Author Respiratory ([facility]) [facility] 08/16/2025 8:00 AM Marina Velázquez RN * RLE ROM Assessment Question Answer Date of Assessment Author RLE Assessment [facility] 08/12/2025 3:25 PM EST Rid Bimal hernándezw * LLE ROM Assessment Question Answer Date of Assessment Author LLE Assessment [facility] 08/12/2025 3:25 PM EST Rid Cayetano hernández * Vitals Question Answer Date of Assessment Author Temp src Oral 08/15/2025 7:29 PM EST Emers on, Carmen Weight 2828.94 08/16/2025 5:38 AM EST Emers on, Carmen BP Location Left arm 08/15/2025 7:29 PM EST Emers on, Carmen BP Method Automatic 08/15/2025 7:29 PM EST Emers on, Carmen Weight Method Bed scale 08/16/2025 5:38 AM EST Carmen Anaya Pulse Oximetry Type Intermittent 08/14/2025 11:39 PM Willian Young Patient Activity During SpO2 Measurement At rest [...] Communication Secure message 08/15/20 12:54 AM Tamara Angiln RN Reason for Communication Medication concern 07/19 12:54 AM Tamara Anglin, ORLIN Response See orders 08/15/2025 1:00 AM Tamara Anglin, ORLIN Name of Nurse Notified of Blood Glucose [...] Home none 08/09/2025 2:00 PM Amisha López RN Functional Status Independent 08/09/2025 2:0 0 [...] 4:43 PM Ximena Akhtar RN Food allergy, Nondenominational, or Cultural nutrition needs No 08/07/2025 4:43 [...] Question Answer Date of Assessment Author Genitourinary ([facility]) WDL 08/16/2025 8:00 AM Marina Wilson RN * Neurological Question Answer Date of Assessment Author Level of Consciousness Alert 4:00 PM Meena Pascual LPN Orientation Level Oriented X4 08/15/2025 4:0 0 PM Meena Pascual LPN Cognition Appropriate judgement;Appropriate safety awareness;Appropriate attention/concentration; Appropriate for developmental age 1108/13/2025 4:00 PM Valerie Babin RN Speech Clear 08/13/2025 4:00 PM Valerie Babin RN Neuro ([facility]) WDL 08/16/2025 8:00 AM Marina Velázquez RN Swallow [...] 08/12/2025 3:2 5 PM Cayetano Garcia Mobility [place] Independent gait w ithout device 08/12/2025 3:25 PM Cayetano Garcia History of Falls No 08/12/2025 3:25 PM Cayetano Lyons ADL Performance Independent 08/12/2025 3:25 PM Cayetano Suárez Receives Help From No assist required p rior to admission 08/12/2025 3:25 PM Cayetano Garcia * RUE ROM Assessment Question Answer Date of Assessment Author RUJunior Assessment [facility] 08/12/2025 3:25 PM Cayetano Calderón Rid * LUE ROM Assessment Question Answer Date of Assessment Author LUJunior Assessment [facility] 08/12/2025 3:25 PM Cayetano Calderón Rid [...] Distance Ambulated (ft) 20 08/08/20 2:00 PM Vreonica Mack Ambulation Response Tolerated well 08/10/2025 9 [...] Details Question Answer Date of Assessment Author Tourist Camp Attendant On No 08/16/2025 8:00 AM Marina Dos [...] 2 08/07/2025 4:40 PM Olivia Santiago RN SENIOR UI UX DEVELOPER Evaluation Needed 2 08/07/2025 4:40 PM Olivia Akhtar RN * Assistive Devices Question Answer Date of Assessment Author Assistive Devices None 08/07/2025 4:40 PM Olivia Akhtar RN * Provider Notification Question Answer Date of Assessment Author Notification Time [id number] 08/13/2025 7:00 PM Valerie Babin RN * [...] of the following? None 08/16/2025 8:00 AM EST Marina Madison RN * Malnutrition Identification Question Answer Date of Assessment Author Unable to Complete Exam Patient out of room 08/11/2025 11:[address] * Mobility Question Answer Date of Assessment Author Ambulation Stand by 08/16/2025 8:00 AM EST Marina Jason ra, RN * Airway Question Answer Date of Assessment Author Airway ([facility]) [facility] 08/07/2025 7:59 AM EST Reina Villalba RN * Breathing Question Answer Date of Assessment Author Breathing ([facility]) [facility] 08/07/2025 7:59 AM EST Reina Beasley RN * Circulation Question Answer Date of Assessment Author Circulation ([facility]) [facility] 08/07/2025 7:59 AM EST Reian May RN * Disability Question Answer Date of Assessment Author Disability ([facility]) [facility] 08/07/2025 7:59 AM EST Reina Dutta RN * Restart Vitals Timer Answer Date of Assessment Author Yes 08/16/2025 3:16 AM EST Lara Velásquez RN * Neurological Question Answer Date of Assessment Author L Pupil Reaction Brisk 08/11/2025 1:30 PM EST Vidhya Joy, RN L Pupil Size (mm) 3 08/11/2025 1:30 PM EST Vidhya Magdaleno, RN R Pupil Reaction Brisk 08/11/2025 1:30 PM EST Vidhya Joy, RN R Pupil Size (mm) 3 08/11/2025 1:30 PM EST Vidhya Magdaleno, RN Neuro ([facility]) [facility] 08/11/2025 1:35 PM EST Vidhya Aleman, RN * HEENT Question Answer Date of Assessment Author Teeth Missing teeth 08/11/2025 1:15 PM EST Vidhya Holder RN HEENT ([facility]) X 08/11/2025 1:15 PM EST Vidhya Aleman, RN * Cardiac Question Answer Date of Assessment Author Cardiac ([facility]) [facility] 08/11/2025 1:15 PM EST Vidhya Holder, RN * Gastrointestinal Question Answer Date of Assessment Author Gastrointestinal ([facility]) [facility] 08/11/2025 1:15 PM EST Vidhya Magdaleno, RN * Genitourinary Question Answer Date of Assessment Author Genitourinary ([facility]) [facility] 08/11/2025 1:15 PM Vidhya Steiner, RN * Psychosocial Question Answer Date of Assessment Author Psychosocial ([facility]) [facility] 08/11/2025 11:48 AM Nidia Barrera RN * Pain Assessment Question Answer Date of Assessment Author Pain Assessment 0-10 (Adult DVPRS/Pe ds 0-10) 08/11/2025 1:30 PM EST Vidhya Magdaleno, RN * IBW/kg (Calculated) Answer Date of Assessment Author 66.1 08/07/2025 5:18 AM Amber Kilgore RN * STOP-Bang Questionnaire Question Answer Date [...] AAR 08/12/2025 3:25 PM Cayetano Marquis * Pneumococcal Vaccine Screen - Year Round Question Answer Date of Assessment Author Have you ever had a pneumoni a vaccination? No 08/07/2025 4:39 PM Olivia Akhtar RN * Calculated C-SSRS Risk Score (Lifetime/Recent) Answer Date of Assessment Author No Risk Indicated 08/16/2025 8:00 AM Marina Velázquez RN * Joann Coma Scale Question Answer Date of Assessment [...] 08/07/2025 5:22 A M Carol Kilgore RN Nondenominational Considerations None 08/07/2025 5:22 AM Carol Kilgore RN * Abuse Screen Question Answer [...] 08/09/2025 8:00 PM Yobany Greene, ORLIN * [place] Suicide Severity Rating Scale Question Answer Date of Assessment Author Is patient awake, alert, and able to answer questions appropriately? Yes 08/07/2025 5:22 AM Carol Poe RN * Patient Belongings Placed in Locker Question Answer Date of Assessment Author Belongings at Bedside Electronic devices;Clothing;Retained by patient and/or family/legal hotel services sales representative who assumes responsibility 08/07/2025 5:22 AM [...] Stanley * Housing Circumstances-Z Codes Question Answer Date of Assessment Author Housing Circumstances (select all that apply) Low Income (101-300% Federal Poverty Guidlines) - Z596 08/09/2025 2:00 PM Amisha López RN * Temp (in Celsius) for [place] IV Answer Date of Assessment Author 36.4 08/16/2025 11:10 AM Emiliano Lindquist Flowsheet In * Pain Assessment Question Answer [...] Site Marked Yes 08/11/2025 11:50 AM Nidia Abdi RN Correct Side Yes 08/11/2025 11:50 AM [...] Color Appropriate for ethnicity 08/15/2025 4:00 PM EST Meena Chou LPN Skin Condition/Temp Warm;Dry 08/15/2025 4 :00 PM EST Meena Chou, FARM AGENT Skin Integrity Other (Comment) 08/16/2025 8:00 AM Marina Velázquez RN Skin Turgor Other (Comment) 08/15/2025 4:00 PM EST Meena Chou LPN 4 Eyes Skin Assessment Completed Yes 08/11/2025 4:00 PM Garrett Ko RN Manual Dual Sign Off 2nd RN Jessi ORDAZ 08/11/2025 4:00 AM Kayla Preston RN Skin Tone Light 08/11/2025 4:00 PM Garrett Ko RN Integumentary (WDL) X 08/16/2025 8 :00 AM Marina Veálzquez RN Redness Location LLE 08/11/2025 8:00 PM [...] RN RASS 0 08/16/2025 8:00 AM Marina Mtz ra, RN Pasero Opioid-Induced Sedation Scale (POSS) 1 08/16/2025 8:00 AM Yasmin Velázquez RN * Urine Output/Assessment Question Answer Date of Assessment Author Urine 300 08/16/2025 5:38 AM EST Amisha Velásquez RN Unmeasured Urine Occurrence 1 08/15/2025 6: 00 AM Tamara Anglin RN Urine Amount Medium 08/11/2025 5:06 PM Garrett Urias RN * Stool Output/Assessment Question Answer Date of Assessment Author Most Recent BM Date [address] 08/11/2025 9:30 AM Garrett Hall RN Stool [...] Author Sánchez Mendenhall 08/16/2025 8:00 AM Marina Velzáquez RN * Patient Specific Goals Question Answer [...] you engage the family/partner in care? No family/career technical supervisor present at this time. Will reevaluate 08/11/2025 4:00 AM Kayla Preston RN How did the family/partner in care participate? No family/career technical supervisor present at this time. Will reevaluate 08/11/2025 4:00 AM Kayla Preston RN * [place] Coma Scale Numeric Answer Date of Assessment Author 15 08/16/2025 8:00 AM Marina Velázquez RN * Elevate heels task - custom formula Answer Date of Assessment Author 1 08/16/2025 8:00 AM Marina Velázquez RN * Neurological Question Answer Date of Assessment Author Neuro Pertinent Negatives Alert and oriented x 4;Speech clear 08/07/2025 5:23 AM Carol Kilgore RN Neuro (WDL) WDL 08/07/2025 5:23 AM Carol Poe RN * Skin Color/Condition Question Answer Date of Assessment Author Skin Comments See media 08/07/2025 8:00 AM Reina Parrish RN Skin Color/Condition (WD) X 08/07/2025 8:0 0 AM Reina Arredondo RN * Cardiac Question Answer Date of Assessment Author Cardiac Pertinent Negatives Heart rate regular 08/07/2025 5:23 AM Carol Kilgore R N Cardiac ([facility]) WDL 08/07/2025 5:23 AM Carol Marcelino RN * Respiratory Question Answer Date of Assessment Author Respiratory Pertinent Negatives Respirations regular/unlabored 08/07/2025 5:23 AM Carol Kilgore RN Respiratory ([facility]) WDL 08/07/2025 5:2 3 AM Carol Kilgore RN * Musculoskeletal Question Answer Date of Assessment Author Musculoskeletal Pertinent Negatives Moves all extremities 08/07/2025 8:00 AM Reina Arredondo RN Musculoskeletal ([facility]) X 08/07/2025 8:00 AM Reina Arredondo [...] Question Answer Date of Assessment Author Integumentary (WDL) X 08/11/2025 1:15 PM Vidhya Steiner, RN * Modified Ziyad Question Answer Date of Assessment Author Activity 2 08/11/2025 1:30 PM Vidhya De Jesus, RN Respiration 2 08/11/2025 1:30 PM Vidhya De Jesus, RN Hemodynamic Stability 2 08/11/2025 1:30 PM Vidhya Pino, RN Consciousness 1 08/11/2025 1:30 PM EST Vidhya Holder, RN Oxygen Saturation 2 08/11/2025 1:30 PM Vidhya Pino, RN Modified Ziyad Score 13 08/11/2025 1:30 PM Vidhya Pino, RN Pain 2 08/11/2025 1:30 PM Vidhya De Jesus, RN Emetic Symptoms 2 08/11/2025 1:30 PM Vidhya Palumbo, RN * Hourly Rounding Question Answer Date [...] Answer Date of Assessment Author Standardized Assessments [facility] 6-Clicks Mobility Assessment 08/12/2025 3:25 PM EST Cayetano Tillman * Jensen/Cubbin Scale Question Answer Date of Assessment Author Age (years) 3 08/10/2025 8:00 PM Kayla Preston, ORLIN Hemodynamics 4 08/10/2025 8:00 PM Kayla Preston, ORLIN Weight/Tissue Viability 3 08/10/2025 8:00 P M Kayla Preston RN Respiration 4 08/10/2025 8:00 PM Kayla Preston RN Past Medical History 4 08/10/2025 8:00 PM E Kayla Antonio RN Oxygen Requirments 4 08/10/2025 8:00 PM [...] Date of Assessment Author Manual Muscle Testing [facility] 08/12/2025 3:25 PM Cayetano Garcia * Manual Muscle Testing - RUE Question Answer Date of Assessment Author Manual Muscle Testing - RUE [facility] 08/12/2025 3: 25 PM Cayetano Garcia * Manual Muscle Testing - LUE Question Answer Date of Assessment Author Manual Muscle Testing - LUE [facility] 08/12/2025 3: 25 PM Cayetano Garcia [...] 08/16/2025 2:00 PM Amisha López RN * [facility] 6-Clicks Mobility Assessment Question Answer Date of Assessment Author Difficulty patient has turni ng over in bed (including adjusting bedclothes, sheets, and blankets)? 4 08/12/2025 3:25 PM Cayetano Garcia Difficulty patient has sitti ng down on and standing up from a chair with arms (wheelchair, bedside commode, etc.)? 4 08/12/2025 3:25 PM Cayetnao Garcia Difficulty patient has movin g from [...] railing? 3 08/12/2025 3:25 PM Cayetano Suárez [facility] 6-Clicks Mobility Assessment Total 23 08/12/2025 3:25 PM Cayetano Garcia * Are you deaf or do you have serious difficulty hearing? Answer Date of Assessment Author No 08/16/2025 2:53 PM Marina Velázquez RN * Are you blind or do [...] Author used independently 08/15/2025 10:20 AM Olga Prajapati, ORLIN * Supportive Measures Answer Date of Assessment [...] Assessment Author medications reviewed 08/16/2025 2:43 PM EST Marina Hannah RN * Seizure Precautions Answer Date of Assessment Author activity supervised 08/14/2025 7:04 AM EST Matilde Rodriguez RN * Topical Inflammation Care Answer Date of Assessment Author other (see comments) 08/14/2025 7:04 AM EST Matilde Dominguez, RN * Self-Care Promotion Answer Date of Assessment Author BADL personal objects within reach;BADL personal routines maintained;adaptive equipment use encouraged;independence encouraged 08/15/2025 10:20 PM EST Amisha Velásquez RN * Safety Interventions Question Answer Date of Assessment Author Safety Precautions/Falls Reduction assistive device/personal items within reach 08/07/2025 5:22 AM EST Carol Mayer RN * Goal: Anesthesia/Sedation Recovery Question Answer Date of Assessment Author Outcome Anesthesia/Sedation Recovery progressing 08/11/2025 1:20 PM EST Vidhya Magdaleno RN * General Emergency Care CPG Interventions Question Answer Date of Assessment Author Coping Interventions care explained to patient/family prior to performing 08/09/2025 8:00 PM Yobany Greene RN General Care Management calm environment promoted 08/09/2025 8:00 PM Yobany Greene RN * Discharge Needs Assessment Question Answer Date [...] RN What day is the transport expected? [id number] 08/16/2025 2:00 PM Amisha López RN Who is requesting discharge planning? Provider 08/16/2025 2:00 PM Amihsa López RN * Goal: Optimal Comfort and [...] 08/11/2025 1:20 PM Vidhya Pino RN * PACU Interventions Question Answer Date of Assessment Author Warm [place] Applied 08/11/2025 1:15 PM Vidhya De Jesus RN Additional Comfort/Environmental Interventions Warm blanket 08/11/2025 1:15 PM Vidhya Pino RN * Precautions Question Answer Date of [...] Answer Date of Assessment Author Level of [place] Modified [place] 08/12/2025 3:25 PM Cayetano Garcia Physical/Nonphysical Assist HOB elevated 08/12/2025 3:25 PM Cayetano Garcia * Bed Mobility Exam: Sit to Supine Question Answer Date of Assessment Author Level of [place] Modified independence 08/12/2025 3:25 PM Cayetano Garcia Physical/Nonphysical Assist HOB elevated 08/12/2025 3:25 PM Cayetano Garcia * Transfer Exam: Sit to stand Question Answer Date of Assessment Author Level of [place] Stand-by assist 08/12/2025 3:25 PM Cayetano Garcia Physical/Nonphysical Assist Verbal Cues;Minimal cues 08/12/2025 3:25 PM Cayetano Garcia Assistive Device Crutches, axillary 08/12/2025 3:25 PM Cayetano Garcia * Transfer Exam: Stand to Sit Question Answer Date of Assessment Author Level of [place] Stand-by assist 08/12/2025 3:25 PM Cayetano Garcia Physical/Nonphysical Assist Verbal Cues;Minimal cues 08/12/2025 3:25 PM Cayetano Garcia Assistive Device Crutches, axillary 08/12/2025 3:25 PM Cayetano Garcia * Postural Appearance Question Answer Date of Assessment Author Posture WFL 08/12/2025 3:25 PM Cayetano Marquis * General Question Answer Date of Assessment Author Next PT Re-Assessment Date [id number] 08/12/2025 3:2 5 PM Cayetano aGrcia Date of PT Session [id number] 08/12/2025 3:25 PM Cayetano Garcia Patient/Family Goals [...] participation in activity 08/12/2025 3:25 PM Cayetano Gracia * Ambulation Question Answer Date of Assessment Author Distance 50' + 150' 08/12/2025 3:25 PM Cayetano Marquis Device Rolling walker;Cheri damian crutches 08/12/2025 3:25 PM Cayetano Garcia Assistance Standby assist 08/12/2025 3:25 PM Cayetano Calderón Rid Ambulation Comments Pt ambulating 50' wi th RW and demonstrating good tolerance to mobility. Progressed to crutches and ambulated an additional 150' with SBA. See gait training for further details. 08/12/2025 3:25 PM EST Cayetano Tillman * HLM Score Question Answer Date of Assessment Author BUNNY M Daily Mobility Goal 7 08/16/2025 8:0 0 [...] Assessment Author BP 127/76 08/16/2025 11:10 AM EST Quentin rface, Doc Flowsheet In Temp 97.5 08/16/2025 11:10 AM EST Inte rface, Doc Flowsheet In Pulse 71 08/16/2025 11:10 AM EST Quentin orr, Doc Flowsheet In Resp 18 08/16/2025 3:16 AM Amisha Canales RN Heart Rate Source Monitor 08/11/2025 1:35 PM Vidhya Pino RN Cardiac Rhythm NSR 08/11/2025 1:15 PM Vidhya Poole RN MAP (mmHg) 93 08/16/2025 11:10 AM EST Emiliano Stockton Flowsheet In * Oxygen Therapy Question Answer Date of Assessment Author SpO2 96 08/16/2025 11:10 AM EST Quentin orr Doc Flowsheet In O2 Flow Rate (L/min) 6 08/11/2025 1:15 PM E Vidhya Carbajal RN Oxygen Therapy None 08/15/2025 7:29 PM Amisha Mckeon Cro, RN O2 Delivery Method Face tent 08/11/2025 1:15 PM Vidhya Pino RN Oximetry Probe Site Location Right Digit 08/07/2025 2:09 PM EST Amada Mendenhall * Neurological Question Answer Date of Assessment Author Neuro (WDL) WDL 08/11/2025 4:00 AM Kayla Preston, RN * Gastrointestinal Question Answer Date of Assessment Author Gastrointestinal ([facility]) [facility] 08/16/2025 8:00 AM EST Marina Madison RN * Peripheral Vascular Question Answer Date of Assessment Author Peripheral Vascular ([facility]) [facility] 08/16/2025 8:00 AM EST Marina Madison RN LLE Edema Non-pitting 08/13/2025 4:00 AM EST Amada Leger RN Capillary Refill Less than/equal to 2 seconds (All extremities) 08/15/2025 4:00 PM EST Hatfull, Meena L, FARM AGENT Pulses L pedal 08/15/2025 4:00 PM EST Hatfu ll, Meena L, FARM AGENT Cyanosis None 08/15/2025 4:00 PM EST Hatfu ll, Meena L, FARM AGENT Edema Left lower extremity 08/14/2025 3:10 PM E Matilde Nick RN PVS Additional Assessments LLE 08/11/2025 1:15 PM EST Vidhya Magdaleno, RN * RUE Neurovascular Assessment Question Answer Date of Assessment Author R Radial Pulse +2 08/15/2025 4:00 PM EST Hat full, Meena L, FARM AGENT * LUE Neurovascular Assessment Question Answer Date of Assessment Author L Radial Pulse +2 08/15/2025 4:00 PM EST Hat full, Meena L, FARM AGENT * RLE Neurovascular Assessment Question Answer Date of Assessment Author R Pedal Pulse +2 08/15/2025 4:00 PM EST Hatf ull, Meena L, FARM AGENT * LLE Neurovascular Assessment Question Answer Date of Assessment Author LLE Capillary Refill Less than/equal to 2 seconds 08/14/2025 3:10 PM EST Matilde Ornelas RN LLE Color Unable to assess 08/12/2025 4:41 PM EST Klarissa Stephens RN LLE Temperature/Moisture Warm 08/13/2025 4:00 PM EST Robert Chaidez RN L Pedal Pulse +2 08/15/2025 4:00 PM EST Hatf ull, Meena L, FARM AGENT LLE Movement Present 08/13/2025 8:00 AM EST [...] Incontinence No 08/15/2025 4:00 PM E Meena Tran, FARM AGENT * Psychosocial Question Answer Date of Assessment [...] Urine Appearance Clear 08/15/2025 7:29 PM EST E merson, Carmen Urine Odor No odor 08/15/2025 7:29 PM [...] Question Answer Date of Assessment Author Cardiac ([facility]) [facility] 08/16/2025 8:00 AM Marina Narvaez RN * Respiratory Question Answer Date of Assessment Author Respiratory ([facility]) [facility] 08/16/2025 8:00 AM Marina Velázquez RN * RLE ROM Assessment Question Answer Date of Assessment Author RLE Assessment [facility] 08/12/2025 3:25 PM EST Cayetano Davis * LLE ROM Assessment Question Answer Date of Assessment Author LLE Assessment [facility] 08/12/2025 3:25 PM EST Rid Cayetano hernánedz * Vitals Question Answer Date of Assessment [...] Measurement At rest 08/14/2025 11:39 PM OMAYRA Willian Hicks Patient Position Lying 08/15/2025 7:29 PM EST Carmen Marin * Point of Care Tests Question Answer Date of Assessment Author Provider Role Hospitalist 08/15/2025 12:54 AM Tamara Mabry RN Provider Name Kent, Jesika Thayer MD 08/15/2025 12:54 AM Tamara Marshall, ORLIN Method of Communication Secure message 08/15/2025 12:5 [...] 4:43 PM Ximena Akhtar RN Food allergy, Nondenominational, or Cultural nutrition needs No 08/07/2025 4:43 [...] Question Answer Date of Assessment Author Genitourinary ([facility]) WD 08/16/2025 8:00 AM Marina Wilson RN * Neurological Question Answer Date of Assessment Author Level of Consciousness Alert 4:00 PM Meena Pascual LPN Orientation Level Oriented X4 08/15/2025 4:0 0 PM Meena Pascual LPN Cognition Appropriate judgement;Appropriate safety awareness;Appropriate attention/concentration; Appropriate for developmental age 1108/13/2025 4:00 PM Valerie Babin RN Speech Clear 08/13/2025 4:00 PM Valerie Babin RN Neuro ([facility]) WDL 08/16/2025 8:00 AM Marina Velázquez RN Swallow Able to swallow grace ds and liquids without difficulty 08/13/2025 4:00 PM Valerie Babin RN R Hand Grasp Strong 08/10/2025 8:00 AM EST Elizabeth Ring RN L Hand Grasp Strong 08/10/2025 8:00 AM EST Elizabeth Ring RN R Pupil Shape Round 08/12/2025 8:00 PM EST Amada Dennison RN L Pupil Shape Round 08/12/2025 8:00 PM EST Amada Dennison RN Hand Grasp/Motor Function/Sensation Assessment Grasp 08/10/2025 8:00 AM EST Elizabeth Ring RN Facial Symmetry Left facial drooping 08/13/2025 4:00 PM EST Valerie Chaidez RN * Height and Weight Question Answer Date of Assessment Author Height 67 08/07/2025 5:18 AM EST Carol Boucher RN * Prior Function Question Answer Date of Assessment Author Level of Mobility Ambulatory- community 08/12/2025 3:2 5 PM Cayetano Garcia Mobility [place] Independent gait w ithout device 08/12/2025 3:25 PM Cayetano Garcia History of Falls No 08/12/2025 3:25 PM EST Cayetano Cobb ADL Performance Independent 08/12/2025 3:25 PM EST Cayetano Moya Receives Help From No assist required p rior to admission 08/12/2025 3:25 PM Cayetano Garcia * RUE ROM Assessment Question Answer Date of Assessment Author BRENDEN Assessment [facility] 08/12/2025 3:25 PM Cayetano Calderón Rid * LUE ROM Assessment Question Answer Date of Assessment Author LUJunior Assessment [facility] 08/12/2025 3:25 PM Cayetano Calderón Rid [...] of Bed Angle 30 08/16/2025 8:00 AM aMrina Velázquez RN Bed Foot Left Rail Up [...] Details Question Answer Date of Assessment Author Tourist Camp Attendant On No 08/16/2025 8:00 AM Marina Dos [...] 2 08/07/2025 4:40 PM Olivia Santiago RN SENIOR UI UX DEVELOPER Evaluation Needed 2 08/07/2025 4:40 PM Olivia Akhtar RN * Assistive Devices Question Answer Date of Assessment Author Assistive Devices None 08/07/2025 4:40 PM Olivia Akhtar RN * Provider Notification Question Answer Date of Assessment Author Notification Time [id number] 08/13/2025 7:00 PM Valerie Babin RN * [...] of Assessment Author Yes 08/16/2025 3:16 AM Lara Canales RN * Neurological Question Answer Date of Assessment Author L Pupil Reaction Brisk 08/11/2025 1:30 PM Vidhya Bull RN L Pupil Size (mm) 3 08/11/2025 1:30 PM Vidhya Pino, RN R Pupil Reaction Brisk 08/11/2025 1:30 PM Vidhya Bull, RN R Pupil Size (mm) 3 08/11/2025 1:30 PM Vidhya iPno, RN * HEENT Question Answer Date of Assessment Author Teeth Missing teeth 08/11/2025 1:15 PM Vidhya Parmar, RN * STOP-Bang Questionnaire Question Answer Date of Assessment Author Do you snore loudly? 0 08/07/2025 4:[address] Olivia Russell RN Do you often feel tired or [...] Adaptive Equipment None 08/12/2025 3:25 P M OMAYRA Cayetano Tillman Lives With Spouse 08/12/2025 3:25 PM OMAYRA Cayetano España * Date of PT Session Question Answer Date of Assessment Author PT Initials AAR 08/12/2025 3:25 PM OMAYRA Cayetano España * Calculated C-SSRS Risk Score (Lifetime/Recent) Answer Date of Assessment Author No Risk Indicated 08/16/2025 8:00 AM Marina Velázquez RN * [place] Coma Scale Question Answer Date of Assessment [...] 08/07/2025 5:22 A M Carol Kilgore RN Nondenominational Considerations None 08/07/2025 5:22 AM Carol Kilgore RN * KINDER 1 Fall Risk Factor Assessment Question Answer Date of Assessment Author Presented to ED because of fall 0 08/09/2025 8:00 PM Cholo Greene RN Age > 70 0 08/09/2025 8:00 PM Yobany Alas, RN Intoxicated with alcohol or substance confusion 0 08/09/2025 8:00 PM Cholo Greene RN Ambulates or transfers with assistive devices or assist 0 08/09/2025 8:00 PM Yobany Mace, RN Unable to ambulate or transfer 0 08/09/2025 8:00 PM Yobany Greene, RN Nursing judgement 0 08/09/2025 8:00 PM Yobnay Greene, RN KINDER 1 Fall Risk Score 0 08/09/2025 8:00 PM Yobany Greene RN * Patient Belongings Placed in Locker Question Answer Date of Assessment Author Belongings at Bedside Electronic devices;Clothing;Retained by patient and/or family/legal hotel services sales representative who assumes responsibility 08/07/2025 5:22 AM [...] Warm;Dry 08/15/2025 4 :00 PM Meena Pascual FARM AGENT Skin Integrity Other (Comment) 08/16/2025 8:00 AM [...] of Assessment Author Most Recent BM Date [id number] 08/11/2025 9:30 AM Garrett Hall RN Stool [...] you engage the family/partner in care? No family/career technical supervisor present at this time. Will reevaluate 08/11/2025 4:00 AM Kayla Preston RN How did the family/partner in care participate? No family/career technical supervisor present at this time. Will reevaluate 08/11/2025 [...] Answer Date of Assessment Author Standardized Assessments [facility] 6-Clicks Mobility Assessment 08/12/2025 3:25 PM Cayetano Garcia * Jensen/Cubbin Scale Question Answer Date of Assessment Author Age (years) 3 08/10/2025 8:00 PM Kayla Preston RN Hemodynamics 4 08/10/2025 8:00 PM Kayla Preston RN Weight/Tissue Viability 3 08/10/2025 8:00 P M Kayla Preston RN Respiration 4 08/10/2025 8:00 PM Kayla Preston RN Past Medical History 4 08/10/2025 8:00 PM E Kayla Antonio RN Oxygen Requirments 4 08/10/2025 8:00 PM [...] 24 hours 0 08/10/2025 8:00 PM Kayla Preston, ORLIN Deduction if patient has hyp othermia of [...] Date of Assessment Author Manual Muscle Testing [facility] 08/12/2025 3:25 PM Cayetano Garcia * Manual Muscle Testing - RUE Question Answer Date of Assessment Author Manual Muscle Testing - RUE [facility] 08/12/2025 3: 25 PM Cayetano Garcia * Manual Muscle Testing - LUE Question Answer Date of Assessment Author Manual Muscle Testing - LUE [facility] 08/12/2025 3: 25 PM Cayetano Garcia [...] 08/16/2025 2:00 PM Amisha López RN * [facility] 6-Clicks Mobility Assessment Question Answer Date of [...] railing? 3 08/12/2025 3:25 PM Cayetano Suárez [facility] 6-Clicks Mobility Assessment Total 23 08/12/2025 3:25 PM Cayetano Garcia documented as of this encounter Mental Status * Time Calculation Question Answer Entry Date Author Start Time 71408 08/12/2025 3:25 PM Cayetano Marquis Stop Time 81835 08/12/2025 3:25 PM Cayetano Marquis Time Calculation [...] PM Cayetano Garcia * BMI (Calculated) Answer Entry Date Author [...] Warming Blankets Applied Yes 08/11/2025 11:35 AM Gayle Corral RN Forced Air Warming Applied No [...] Schumacher RN * Pressure Reduction Techniques Answer Entry [...] Author personal rituals encouraged 08/15/2025 10:20 PM EST Christen, Amisha L, RN * Sleep/Rest Enhancement Answer Entry Date Author awakenings minimized;consist ent schedule promoted;regular sleep/rest pattern promoted;room darkened;noise level reduced 08/15/2025 10:20 PM Parviz Canales RN * Medication Review/Management Answer Entry Date Author medications reviewed 08/16/2025 2:43 PM EST Marina Hannah RN * Seizure Precautions Answer Entry Date Author activity supervised 08/14/2025 7:04 AM EST Matilde Rodriguez RN * Topical Inflammation Care Answer Entry Date Author other (see comments) 08/14/2025 7:04 AM Matidle Portillo, RN * Self-Care Promotion Answer Entry Date Author BADL personal objects within reach;BADL personal routines maintained;adaptive equipment use encouraged;independence encouraged 08/15/2025 10:20 PM Amisha Canales RN * Safety Interventions Question Answer Entry Date Author Safety Precautions/Falls Reduction assistive device/personal items within reach 08/07/2025 5:22 AM EST Carol Mayer RN * Goal: Anesthesia/Sedation Recovery Question Answer Entry Date Author Outcome Anesthesia/Sedation Recovery progressing 08/11/2025 1:20 PM EST Vidhya Magdaleno RN * General Emergency Care CPG Interventions Question Answer Entry Date Author Coping Interventions care explained to patient/family prior to performing 08/09/2025 8:00 PM Yobany Greene RN General Care Management calm environment promoted 08/09/2025 8:00 PM Yobany Greene RN * Discharge Needs Assessment Question Answer [...] RN What day is the transport expected? [id number] 08/16/2025 2:00 PM Amisha López RN Who [...] Interventions Question Answer Entry Date Author Warm [place] Applied 08/11/2025 1:15 PM Vidhya Pino RN Additional Comfort/Environmental Interventions Warm blanket 08/11/2025 1:15 PM Vidhya Pino RN * Weight Change 24 hrs Answer Entry Date Author .367 08/16/2025 5:38 AM Carmen Stanley * Facility NPI Question Answer Entry Date Author [facility] 08/09/2025 8:36 AM Delon Zelaya, ORLIN * Precautions Question Answer Entry Date Author Medical Precautions Fall precautions 08/12/2025 3:25 P M Cayetano Garcia * Delirium Assessment Question Answer Entry Date Author CAM-ICU/PCAM-ICU No 08/12/2025 3:25 PM Cayetano Lyons * General Question Answer Entry Date Author Next PT Re-Assessment Date 08/12/2025 3:2 5 PM Cayetano Garcia Date of PT Session [id number] 08/12/2025 3:25 PM Cayetano Garcia * PT [...] HLM Score Question Answer Entry Date Author [facility] Daily Mobility Goal 7 08/16/2025 8:0 0 AM Marina Velázquez RN [facility] Daily Mobility Score 7 08/16/2025 8: 00 [...] Date Author BP 127/76 08/16/2025 11:10 AM EST Inte rfayulia, Doc Flowsheet In Temp 97.5 08/16/2025 11:10 AM EST Inte rface, Doc Flowsheet In Pulse 71 08/16/2025 11:10 AM EST Inte rface, Doc Flowsheet In Resp 18 08/16/2025 3:16 AM EST Amisha Velásquez, lan manager Rate Source Monitor 08/11/2025 1:35 PM EST Vidhya Magdaleno, assembling machine operator Rhythm NSR 08/11/2025 1:15 PM EST Vidhya Baires, RN MAP (mmHg) 93 08/16/2025 11:10 AM EST Quentin orr Doc Flowsheet In * Oxygen Therapy Question Answer Entry Date Author SpO2 96 08/16/2025 11:10 AM EST InterfaceEmiliano Flowsheet In O2 Flow Rate (L/min) 6 08/11/2025 1:15 PM E Vidhya Magdaleno, RN Oxygen Therapy None 08/15/2025 7:29 PM EST Amisha Newman RN O2 Delivery Method Face tent 08/11/2025 1:15 PM Vidhya Pino RN Oximetry Probe Site Location Right Digit 08/07/2025 2:09 PM EST Amada Mendenhall * Patient Observation Question Answer Entry Date Author Patient Observations asked for signout a t this time 08/11/2025 1:35 PM EST Vidhya Magdaleno, RN * Neurological Question Answer Entry Date Author Neuro ([facility]) [facility] 08/11/2025 4:00 AM EST Kayla aVz RN * Gastrointestinal Question Answer Entry Date Author Gastrointestinal ([facility]) [facility] 08/16/2025 8:00 AM EST Marina Madison RN * Peripheral Vascular Question Answer Entry Date Author Peripheral Vascular ([facility]) [facility] 2024 8:00 AM EST Marina Madison RN LLE Edema Non-pitting 08/13/2025 4:00 AM EST Amada Dennison RN Capillary Refill Less than/equal to 2 seconds (All extremities) 08/15/2025 4:00 PM EST Meena Chou LPN Pulses L pedal 08/15/2025 4:00 PM EST Meena Chou LPN Cyanosis None 08/15/2025 4:00 PM EST Meena Chou L, FARM AGENT Edema Left lower extremity 08/14/2025 3:10 PM EST Matilde Ornelas, RN PVS Additional Assessments LLE 08/11/2025 1:15 PM EST Vidhya Magdaleno, RN * RUE Neurovascular Assessment Question Answer Entry Date Author R Radial Pulse +2 08/15/2025 4:00 PM EST Hat full, Meena L, FARM AGENT * LUE Neurovascular Assessment Question Answer Entry Date Author L Radial Pulse +2 08/15/2025 4:00 PM EST Hat full, Meena L, FARM AGENT * RLE Neurovascular Assessment Question Answer Entry Date Author R Pedal Pulse +2 08/15/2025 4:00 PM EST Hatf ull, Meena L, FARM AGENT * LLE Neurovascular Assessment Question Answer Entry Date Author LLE Capillary Refill Less than/equal to 2 seconds 08/14/2025 3:10 PM EST Matilde Ornelas RN LLE Color Unable to assess 08/12/2025 4:41 PM EST Klarissa Whitehead RN LLE Temperature/Moisture Warm 025 4:00 PM EST Valerie Chaidez RN L Pedal Pulse +2 08/15/2025 4:00 PM EST Meena Chou L, FARM AGENT LLE Movement Present 08/13/2025 8:00 AM EST Valerie Chaidez RN * Musculoskeletal Question Answer Entry Date Author RUE Full movement 08/11/2025 4:00 PM Garrett Jones RN RLE Full movement 08/11/2025 4:00 PM Garrett Jones RN LUE Full movement 08/11/2025 4:00 PM EST Garrett Carrasco RN LLE Surgery 08/16/2025 8:00 AM EST Marina Jason ra, RN Musculoskeletal (WDL) X 08/16/2025 8:00 AM Marina Velázquez RN * Urine Assessment Question Answer Entry Date Author Urinary Incontinence No 08/15/2025 4:[address] Meena Chou L, FARM AGENT * Psychosocial Question Answer Entry Date Author Psychosocial (WDL) WDL 08/16/2025 8:00 AM Marina Velázquez RN Length of Time/Family Visitation 0-5 min 08/11/20 25 4:00 AM EST Kayla Vaz RN * Unmeasured Output Question Answer Entry Date Author Unmeasured Stool Occurrence (hourly total) 1 08/15/2025 12:33 AM EST KurtWillian * Intake Question Answer Entry Date Author [address] 08/13/2025 8:20 AM EST Valerie Hernandez RN * Output (mL) Question Answer Entry Date Author Urine Color Yellow/straw 08/15/2025 7:29 PM EST Emers on, Carmen Urine Appearance Clear 08/15/2025 7:29 PM EST E merson, Carmen Urine Odor No odor 08/15/2025 7:29 PM EST Emers on, Carmen Stool Amount Small 08/15/2025 12:33 AM EST Virginia Willian duncan Bowel Incontinence No 08/15/2025 12:33 AM Willian [...] Question Answer Entry Date Author Cardiac (WDL) WDL 08/16/2025 8:00 AM Marina Narvaez RN * Respiratory Question Answer Entry Date Author Respiratory ([facility]) [facility] 08/16/2025 8:00 AM Marina Velázquez RN * Vitals Question Answer Entry Date Author Temp src Oral 08/15/2025 7:29 PM EST Riddhis on, Carmen Weight 2828.94 08/16/2025 5:38 AM EST Emers onBhavanae BP Location Left arm 08/15/2025 7:29 PM EST Emers on, Carmen BP Method Automatic 08/15/2025 7:29 PM EST Riddhis onBhavanae Weight Method Bed scale 08/16/2025 5:38 AM EST Carmen Anaya Pulse Oximetry Type Intermittent 08/14/2025 11:39 PM [...] Communication Secure message 08/15/20 12:54 AM Tamara Anglin, ORLIN Reason for Communication Medication concern 07/19 12:54 AM Tamara Anglin, ORLIN Response See orders 08/15/2025 1:00 AM Tamara Anglin, ORLIN Name of Nurse Notified of Blood Glucose [...] Home none 08/09/2025 2:00 PM Amisha López RN Functional Status Independent 08/09/2025 2:0 0 PM Amisha López RN Living Arrangements Spouse/Significant other 2:00 PM Amisha López RN Type of Residence Private residence;Mu lti Level 08/09/2025 2:00 PM Amisha López [...] DNR/DNI Order No 08/07/2025 4:40 PM Olivia Akhtar, RN Information Provided on Healthcare Directives No [...] 4:43 PM Ximena Akhtar RN Food allergy, Nondenominational, or Cultural nutrition needs No 08/07/2025 4:43 [...] Genitourinary Question Answer Entry Date Author Genitourinary (WDL) WD 08/16/2025 8:00 AM Marina Wilson RN * Neurological Question Answer Entry Date Author Level of Consciousness Alert 4:00 PM Meena Pascual LPN Orientation Level Oriented X4 08/15/2025 4:0 0 PM Meena Pascual LPN Cognition Appropriate judgement;Appropriate safety awareness;Appropriate attention/concentration;A ppropriate for developmental age 1108/13/2025 4:00 PM Valerie Babin RN Speech Clear 08/13/2025 4:00 PM Valerie Babin RN Neuro ([facility]) WDL 08/16/2025 8:00 AM Marina Velázquez RN Swallow Able to swallow grace ds and liquids without difficulty 08/13/2025 4:00 PM Valerie Babin RN R Hand Grasp Strong 08/10/2025 8:00 AM Elizabeth Medrano RN L Hand Grasp Strong 08/10/2025 8:00 AM Elizabeth Medrano RN R Pupil Shape Round 08/12/2025 8:00 PM Amada Ceidllo RN L Pupil Shape Round 08/12/2025 8:00 [...] Isolation Precautions protective 08/16/2025 8:00 AM Marina Veláqzuez RN Precautions Environmental surveillance 08/16 8:00 AM Marina Velázquez RN * Family/Significant Other Communication Question Answer Entry Date Author Family/Significant Other Update Updated;Visiting 08/11/2025 4:00 AM Kayla Preston RN * Telemetry Details Question Answer Entry Date Author Tourist Camp Attendant On No 08/16/2025 8:00 AM Marina Dos [...] 2 08/07/2025 4:40 PM Olivia Santiago RN SENIOR UI UX DEVELOPER Evaluation Needed 2 08/07/2025 4:40 PM Olivia Akhtar RN * Assistive Devices Question Answer Entry Date Author Assistive Devices None 08/07/2025 4:40 PM Olivia Akhtar RN * NPO/Void Status Question Answer Entry Date Author Time of Last Liquid 16406 08/11/2025 11:49 AM E Nidia Sandoval RN Date of Last Liquid 58758 08/11/2025 11:49 AM Nidia Santigao RN Date of Last Solid 05528 08/11/2025 11:49 AM Nidia Barrera RN Time of Last Solid 62886 08/11/2025 11:49 AM Nidia Barrera, ORLIN * Provider Notification Question Answer Entry Date Author Notification Time [id number] 08/13/2025 7:00 PM Valerie Babin RN * [...] pink pre-surgical soap? No 08/11/2025 11:47 AM Felipe Polanco, ORLIN * Mobility Question Answer Entry Date Author Ambulation Stand by 08/16/2025 8:00 AM Marina Mtz ra, RN * Airway Question Answer Entry Date Author Airway ([facility]) [facility] 08/07/2025 7:59 AM EST Reina Villalba, RN * Breathing Question Answer Entry Date Author Breathing ([facility]) [facility] 08/07/2025 7:59 AM EST Reina Beasley, RN * Circulation Question Answer Entry Date Author Circulation ([facility]) [facility] 08/07/2025 7:59 AM EST Reina May, RN * Disability Question Answer Entry Date Author Disability ([facility]) [facility] 08/07/2025 7:59 AM EST Reina Dutta, RN * Restart Vitals Timer Answer Entry [...] 1:30 PM EST Vidhya Magdaleno RN Neuro ([facility]) [facility] 08/11/2025 1:35 PM EST Vidhya Aleman, RN * HEENT Question Answer Entry Date Author Teeth Missing teeth 08/11/2025 1:15 PM EST Vidhya Holder, RN HEENT ([facility]) X 08/11/2025 1:15 PM EST Vidhya Aleman, RN * Cardiac Question Answer Entry Date Author Cardiac ([facility]) [facility] 08/11/2025 1:15 PM EST Vidhya Holder, RN * Gastrointestinal Question Answer Entry Date Author Gastrointestinal ([facility]) [facility] 08/11/2025 1:15 PM EST Vidhya Magdaleno, RN * Genitourinary Question Answer Entry Date Author Genitourinary ([facility]) [facility] 08/11/2025 1:15 PM Vidhya Steiner, RN * Psychosocial Question Answer Entry Date Author Psychosocial ([facility]) [facility] 08/11/2025 11:48 AM Nidia Barrera RN * Pain Assessment Question Answer Entry Date Author Pain Assessment 0-10 (Adult DVPRS/Pe ds 0-10) 08/11/2025 1:30 PM EST Vidhya Magdaleno RN * IBW/kg (Calculated) Answer Entry Date Author 66.1 08/07/2025 5:18 AM EST Amber Mayer RN * Preop Holding - SSI Checklist Question Answer Entry Date Author Nasal decolonization swabs d one in preop holding? Yes 08/11/2025 11:47 AM EST Nidia Hernandez RN * STOP-Bang Questionnaire Question Answer Entry [...] 08/07/2025 4:43 P Olivia Laura RN * Date of PT Session Question Answer Entry Date Author PT Initials AAR 08/12/2025 3:25 PM EST aCyetano España * HARK Concern Calculation Answer Entry Date Author 1 08/09/2025 2:44 PM EST Lara Chang RN * Food Insecurity Concern Calculation Answer [...] 70 0 08/09/2025 8:00 PM Yobany Alas, RN Intoxicated with alcohol or substance confusion 0 08/09/2025 8:00 PM Cholo Greene RN Ambulates or transfers with assistive devices or assist 0 08/09/2025 8:00 PM Yobany Mace, ORLIN Unable to ambulate or transfer 0 08/09/2025 8:00 PM Yobany Greene, RN Nursing judgement 0 08/09/2025 8:00 PM Yobany Greene, RN KINDER 1 Fall Risk Score 0 08/09/2025 8:00 PM Yobany Greene, RN * [place] Suicide Severity Rating Scale Question Answer Entry Date Author Is patient awake, alert, and able to answer questions appropriately? Yes 08/07/2025 5:22 AM Carol Poe RN * Patient Belongings Placed in Locker Question Answer Entry Date Author Belongings placed in Locker None 08/07/2025 5:22 AM Carol Kilgore RN Belongings at Bedside Electronic devices;Clothing;Retained by patient and/or family/legal hotel services sales representative who assumes responsibility 08/07/2025 5:22 AM Carol Kilgroe RN * BIOLOGY PROFESSOR Information Question Answer Entry Date Author Mode of Arrival Ambulance 08/07/2025 5:18 AM Carol Alba Ma, RN * Peripheral Vascular Question Answer Entry Date Author Peripheral Vascular (WDL) X 08/07/2025 8:00 AM Reina Arredondo RN * Weight in (lb) to have BMI = 25 Answer Entry Date Author 159.3 08/07/2025 5:18 AM Amber Kilgore RN * BMI (Calculated) Answer Entry Date Author [...] Date Author 44.9 08/07/2025 5:18 AM Amber Kilgore, ORLIN * Difference in Weight Since Last Visit Answer Entry Date Author 0.37 08/16/2025 5:38 AM EST Carmen Sun * Housing Circumstances-Z Codes Question Answer Entry Date Author Housing Circumstances (select all that apply) Low Income (101-300% Federal Poverty Guidlines) - Z596 08/09/2025 2:00 PM Amisha López RN * Anthropometrics Question Answer Entry Date Author Weight Change 0.46 08/16/2025 5:38 AM Carmen Katz * Temp (in Celsius) for [place] IV Answer Entry Date Author 36.4 08/16/2025 11:10 AM EST Interfac [...] Correct Site Yes 08/11/2025 11:50 AM Nidia Polanco RN Site Marked Yes 08/11/2025 11:50 AM [...] Date Author 528.8 08/07/2025 5:18 AM Amber Kilgore, ORLIN * Adult High Range Vt 10mL/kg Answer [...] 08/11/2025 8:00 PM Alicia Lipscomb RN * Score Answer Entry Date Author 10.42 08/16/2025 5:03 PM Herbert Sargent * Confusion Assessment Method (CAM) Question Answer [...] Entry Date Author Most Recent BM Date 54028 08/11/2025 9:30 AM Garrett Hall RN Stool Appearance Unable to assess 08/11/2025 9:30 AM Garrett Zee RN * Fall Risk Calculated Score Answer Entry Date Author Sánchez Mendenhall 08/16/2025 8:00 AM Marina [...] Date [place] [address] 08/11/2025 8:[address] * [...] you engage the family/partner in care? No family/career technical supervisor present at this time. Will reevaluate 08/11/2025 4:00 AM Kayla Preston RN How did the family/partner in care participate? No family/career technical supervisor present at this time. Will reevaluate 08/11/2025 4:00 AM Kayla Preston RN * PRN Medication Given Reason Answer Entry Date Author pain 08/14/2025 10:33 AM Klarissa Laureano RN * Discharge Medication Bedside Delivery Question Answer Entry Date Author Meds to Beds Complete? Yes 5:49 PM Randi Morales, PharmD Current Status Prescriptions Delive red - M2B Service Complete 08/16/2025 5:49 PM Randi Morales PharmD Is the patient interested in Medication [...] 08/07/2025 5:23 AM Carol Kilgore RN Neuro ([facility]) WD 08/07/2025 5:23 AM Carol Kilgore RN * Musculoskeletal Question Answer Entry Date Author Musculoskeletal Pertinent Negatives Moves all extremities 08/07/2025 8:00 AM Reina Arredondo RN Musculoskeletal ([facility]) X 08/07/2025 8:00 AM Reina Arredondo RN * Vitals Timer Question Answer Entry Date Author Update Vitals Alert Interval 240 08/07/2025 2 :09 PM EST Amada Mendenhall Restart Vitals Timer Yes 08/16/2025 3:16 AM E Amisha Rodríguez RN Restart Vitals Timer Yes 08/07/2025 2:09 PM E Amada Chino * Respiratory Assessment Question Answer Entry Date Author Respiratory (WDPoli) WDL 08/11/2025 1:15 PM EST Magdaleno, Vidhya P, RN * Integumentary Question Answer Entry Date Author Integumentary (WDL) X 08/11/2025 1:15 PM Vidhya Steiner, RN * Modified Ziyad Question Answer Entry Date Author Activity 2 08/11/2025 1:30 PM Vidhya De Jesus, RN Respiration 2 08/11/2025 1:30 PM Vidhya De Jesus, RN Hemodynamic Stability 2 08/11/2025 1:30 PM EST Vidhya Magdaleno, RN Consciousness 1 08/11/2025 1:30 PM EST Vidhya Holder, RN Oxygen Saturation 2 08/11/2025 1:30 PM EST Vidhya Magdaleno, RN Modified Ziyad Score 13 08/11/2025 1:30 PM EST Vidhya Magdaleno RN Pain 2 08/11/2025 1:30 PM EST Vidhya Aleman, RN Emetic Symptoms 2 08/11/2025 1:30 PM Vidhya Palumbo, RN * Postprocedure Normothermia Interventions Question Answer Entry Date Author [place] Applied No 08/11/2025 1:20 PM Vidhya Palumbo RN Is the patient normothermic? Yes 08/11/2025 1 :20 PM Vidhya Pino, RN * Hourly Rounding Question Answer Entry [...] 08/16/2025 2:00 PM Amisha López RN * [facility] 6-Clicks Mobility Assessment Question Answer Entry Date [...] railing? 3 08/12/2025 3:25 PM Cayetano Suárez [facility] 6-Clicks Mobility Assessment Total 23 08/12/2025 3:25 [...] PM ESTEncounter addended by: Jenni Banuelos on: 08/26/2025 3:18 PM Actions taken: Utilization [...] - Brodie Pal - 08/16/2025 5:03 PM Vivianer addended by: Brodie Pal on: 08/31/2025 2:33 PM Actions taken: Utilization Review saved, Utilization Review data saved * Progress Notes - Consuelo Solano, RN - 08/16/2025 4:18 PM EST OPAT [...] no longer needed at this time. Consuelo Solano RN 08/16/2025 * Care Plan - Marina [...] Intervention: Promote Wound Healing Flowsheets (Taken 08/15/2025 222 by Amisha Velásquez RN) Sleep/Rest Enhancement: awakenings minimized consistent schedule promoted [...] Protection Flowsheets Taken 08/16/2025 1443 by Marina Madison RN Activity Management: activity adjusted per tolerance Taken 08/15/20252219 by Amisha Velásquez RN Pressure Reduction Techniques: frequent weight shift encouraged * Progress Notes - Amisha Chang RN - 08/16/2025 2:10 PM EST Case Management Discharge Note Hi Goode 60 y.o. male CSN: [id number] Admission: 08/07/2025 5:18 AM Primary Problem: Cellulitis and abscess of toe of left foot Patient medically ready for discharge. Patient to discharge home with family to transport. Patient to follow up with wound care clinic. Primary Oak Tanner: Primary Caregiver: Self Assistance Available at Discharge: [...] insurance) Follow-up: Andie Moyer MD [address] [facility] [address] [facility] [phone] Iraida Reese, ANIMAL STICKER [address] [facility] [phone] Schedule an appointment as soon as possible for a visit Bria Coy MD [address] [phone] All follow up provided in AVS. Discharge [...] Fonseca MD PCP name and Address: Iraida Reese, ANIMAL STICKER [address] [facility] [address] Referring provider name and address: Bria Coy MD [address] [place] [address] Chief Concern, Brief History of Present Illness, [...] Your Medications These medications were sent to [facility] [place], [place] - [address] [facility] [address] Alcoh-Wipe sheet Blood Glucose Monitoring Suppl device [...] Center 08/31/2025 11:20 AM Renea Li PA [facility] Test Results Pending At Discharge [...] Note Hi Goode 60 y.o. male CSN: [id number] This is a 60 y.o. male patient was admitted to [facility] with the diagnosis of Cellulitis, Dm education [...] T2DM, HTN, and HLD who presented to [facility] on 08[facility]07[facility] with a left 4th toe puncture wound of two days duration. 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 Pt reports he removed nail andcleaned wound. He developed pain/swelling of L 4th toe 08/06/2025 and seen at [facility] where he was given Levofloxacin and Clindamycin, [...] completely subsided in the left foot. His WBC(12/) is normal. He had amputation for his [...] Mery Garcia PA 150 mg at 08/15/25 0801 ceFAZolin (Ancef) injection 2 g 2 g [...] Oral Daily Mery Garcia PA 1 tabletat 11/30/25 0801 polyethylene glycol (Miralax) packet 17 g 17 [...] Discharge:Anticipated Tomorrow * Care Plan - Olga Tomlin, RN - 08/15/2025 10:23 AM EST Problem: Adult Inpatient Plan of Care Goal: Absence of Hospital-Acquired Illness or Injury Outcome: Ongoing, Not Progressing Intervention: Identify and Manage Fall Risk Flowsheets (Taken 08/14/20252103 by Tamara Lou, RN) Safety Promotion/Fall Prevention: activity supervised fall prevention program maintained nonskid shoes/slippers when out of bed safety round/check completed clutter-free environment maintained Intervention: Prevent Skin Injury Flowsheets Taken 08/15/2025 1020 by Tomlin, Olga L, RN Skin Protection: protective footwear used transparent [...] Review Outcome: Ongoing, Progressing Flowsheets (Taken 08/14/2025 0704 by Matilde Ornelas RN) Progress: improving Plan of Care Reviewed [...] Review Outcome: Ongoing, Progressing Flowsheets (Taken 08/14/2025 0704) Progress: improving Plan of Care Reviewed With: patient Goal: Patient-Specific Goal (Individualized) Outcome: Ongoing, Progressing Flowsheets (Taken 08/14/2025 0700) Patient/Family-Specific Goals (Include Timeframe): pt will have [...] and vancomycin and starting cefazolin. PT/OT consulted [facility] surgery rec'd: - Recommend WTD dressing [...] and Manage Infection Progression Flowsheets (Taken 08/13/2025 103) Infection Management: aseptic technique maintained Infection Prevention: cohorting utilized environmental surveillance performed equipment surfaces disinfected hand hygiene promoted personal protective equipment utilized rest/sleep promoted single patient room provided Isolation Precautions: precautions maintained protective Problem: Wound Goal: Optimal Wound Healing Outcome: Ongoing, Progressing Intervention: Promote Wound Healing Flowsheets (Taken 08/13/20251034) Sleep/Rest Enhancement: consistent schedule promoted natural light [...] provided Intervention: Provide Person-Centered Care Flowsheets (Taken 08/13/20250) Trust Relationship/Rapport: care explained choices provided questions [...] admission Level of Mobility: Ambulatory- community Mobility [place]: Independent gait without device History of Falls: [...] Mobility Exam: Supine to Sit Level of [place]: Modified [place] Physical/Nonphysical Assist: [facility] elevated Bed Mobility Exam: Sit to Supine Level of [place]: Modified independence Physical/Nonphysical Assist: [facility] elevated Transfers Transfer Exam: Sit to stand Level of [place]: Stand-by assist Physical/Nonphysical Assist: Verbal Cues, Minimal cues Assistive Device: Crutches, axillary Transfer Exam: Stand to Sit Level of [place]: Stand-by assist Physical/Nonphysical Assist: Verbal Cues, Minimal [...] provided. Standardized Assessments Standardized Assessments Standardized Assessments: [facility] 6-Clicks Mobility Assessment [facility] 6-Clicks Mobility Assessment Difficulty patient has turning [...] 3-5 steps with a railing?: A little [facility] 6-Clicks Mobility Assessment Total : 23 No [...] from the original note were not included. [facility] Department of Surgery Division of Vascular [...] Airway None Output by Drain (mL) 08/10/25 07 - 08/10/25 1859 08/10/25 1900 - 08/11/25 [...] from last 7 days Lab Units 08/12/25 03008/11/25 0330 08/09/25 0230 CREATININE mg/dL 1.21* 1.03 1.18 Lactate No lab exists for component: LACTTEVEN Radiographic Interpretation: No imagining today. Medications reviewed. Vital signs reviewed. Labs reviewed. Assessment/Plan Assessment and Plan: Hi Goode is a 60 y.o. male with PMHx notable for IDDM2, HLD, HTN, bladder cancer (in remission), and depression who presented to [facility] with left fourth toe wound [...] Review Outcome: Ongoing, Progressing Flowsheets (Taken 08/12/2025 0904) Progress: improving Plan of Care Reviewed With: [...] Care Review Outcome: Ongoing, Progressing Flowsheets (Taken 08/12/2025400) Progress: improving Outcome Evaluation: PT A&Ox4, VSS [...] Identify and Manage Fall Risk Flowsheets (Taken 08/12/2025400) Safety Promotion/Fall Prevention: safety round/check completed Intervention: Prevent Skin Injury Flowsheets (Taken 08/12/2025400) Body Position: education provided Skin Protection: protective footwear used Intervention: Prevent and Manage VTE (Venous Thromboembolism) Risk Flowsheets (Taken 08/12/2025400) VTE Prevention/Management: education provided Intervention: Prevent Infection Flowsheets (Taken 08/12/2025400) Infection Prevention: cohorting utilized environmental surveillance performed [...] Intervention: Prevent or Manage Pain Flowsheets (Taken 08/12/2025400) Sensory Stimulation Regulation: quiet environment promoted care [...] Progressing Intervention: Promote Wound Healing Flowsheets (Taken 08/12/2025 040) Sleep/Rest Enhancement: awakenings minimized consistent schedule promoted [...] PM EST Operative Note Date: 08/11/25 Location: [facility] Name: Hi Goode, : 1965, Diagnoses: Pre-op Diagnosis Cellulitis and abscess of toe of left foot Post-op Diagnosis Cellulitis and abscess of toe of left foot Procedure(s): Left 4th toe amputation. Attending Surgeon(s): * Andie Moyer - Primary Mine Boss(s): * Aakash Frausto MD - Resident - [...] T2DM, HTN, and HLD who presented to [facility] on 08/07/25 as a [facility] with a left 4th toe puncture wound of two days duration. 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 Pt reports he removed nail andcleaned wound. He developed pain/swelling of L 4th toe 08/06/2025 and seen at [facility] where he was given Levofloxacin and Clindamycin, [...] Daily Mery Garcia PA 150 mg at 08/11/25823 cholecalciferol (Vitamin D-3) tablet 1,000 Units 1,000 Units Oral Daily Mery Garcia PA1,000 Units at 08/11/25823 glucose (Glutose) 40 % oral gel 15-30 [...] Daily Fabienne Palm MD 250 mg at 08/11/25823 finasteride (Proscar) tablet 5 mg 5 mg Oral Daily Mery Garcia PA 5 mg at 08/11/25823 hydroCHLOROthiazide (HYDRODiuril) tablet 25 mg 25 mg Oral Daily Mery Garcia PA 25 mg at 08/11/25823 ibuprofen tablet 400 mg 400 mg Oral [...] night Fabienne Palm MD 1 Units at 08/09/258 Insulin Lispro (Admelog, HumaLOG) 100 UNIT/ML injection 8 Units 8 Units Subcutaneous TID with Uche Garcia MD 8 Units at 08/10/25 1635 lisinopril tablet 40 mg 40 mg Oral Daily Mery Garcia PA 40 mg at 08/11/25 0825 melatonin tablet 3 mg 3 mg Oral [...] Admin ePHEDrine Sulfate (Akovaz) injection Intravenous PRN Luica Rede CRNA, DNP 5 mg at 08/11/25 1303 [...] propofol (Diprivan) injection Intravenous PRN Lucia Reed CRNA DNP 150 mg at 08/11/25 1227 Cosigned [...] injury was at suburban construction site in [facility]. Also has cats at home, potential [...] Note Hi Goode 60 y.o. male CSN: [id number] Admission: 08/07/2025 5:18 AM Primary Problem: Cellulitis [...] Intervention: Optimize Psychosocial Wellbeing Flowsheets (Taken 08/11/2025 110) Supportive Measures: active listening utilized decision-making supported Diversional Activities: television Spiritual Activities Assistance: affirmation provided personal rituals encouraged Intervention: Develop Pain Management Plan Flowsheets (Taken 08/11/2025 08) Pain Management Interventions: [...] Progressing Intervention: Promote Wound Healing Flowsheets (Taken 08/11/2025 110) Sleep/Rest Enhancement: relaxation techniques promoted consistent schedule promoted * Discharge Instr - Activity - Gisel Monteiro RN - 08/11/2025 9:19 AM EST Move around as you are able. Do not drive while taking narcotic medications. Use assistive equipment as instructed. Weight bearing as tolerated through left leg. * Significant Event - Gonce, Aakash E, MD - 08/11/2025 8:29 AM EST Patient [...] Note Hi Goode 60 y.o. male CSN: [id number] Room/Bed OR/- Nutrition evaluation type: screen Reason [...] (98.6 ??F) Oxygen Therapy: None (Room air) [place] Coma Scale Score: 15 Garry Scale Score: [...] (Calculated): 27.65 Weight Evaluation: Overweight (BMI 25-29.9) [place] Body Weight (kg): 67.2 Percent [place] Body Weight: 118 Estimated Needs: Metabolic Cart Study Results: Current Nutrition Intake: Diet Order: Adult Diet Diet Texture: Regular Adult Carbohydrate Restriction: Consistent CHO 2 (5904-3679 Mundo, 80 g/meal) Percent Meals Eaten (%): 100% 08/11: Pt NPO today Diet Experience and Nutrition History: Diet Education Provided: Will monitor Pertinent home medications: atorvastatin, bupropion, vitamin D3, finasteride, glipizide, insulin, lisinopril-hydrochlorothiazide, MVI Nondenominational needs: Nutrition Focused Physical Exam: Unable to [...] skin integrity. Acuity Level: 1 Mikki Martin, RD, LD [1] Past Medical History: Diagnosis Date [...] from the original note were not included. [facility] Department of Surgery Division of Vascular [...] remission), and depression who presented to [facility] on 08/07/2025 with left fourth toe wound. [...] History Administered Date(s) Administered Moderna COVID-19 Vaccine (Computer Consultant) 12+ years 06/22/2021, 07/21/2021, 01/25/2022 Moderna COVID-19 [...] (in remission), and depression who presented to 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 Infl ammatory labs are downtrending on IV antibiotic therapy. Defer management of foot wound to vascularsurgery as they are currently following. Continue IV antibiotics according to recommendations per Infectious Disease. Orthopedic surgery sign off Cody Ledezma MD PGY-3, Orthopaedic Surgery [facility] Orthopaedic Trauma Service Pager: [phone] Orthopaedic Recon/Spine/Foot and Ankle Service Pager: [phone] [1] Past Medical History: Diagnosis Date Essential [...] Daily, Mery Garcia PA,150 mg at 08/10/25 0836 cholecalciferol (Vitamin D-3) tablet 1,000 Units, 1,000 Units, Oral, Daily, Mery Garcia PA, 1,000 Units at 08/10/25 0836 glucose (Glutose) 40 [...] Daily, Fabienne Palm MD, 250 mg at 08/10/25 0830 finasteride (Proscar) tablet 5 mg, 5 mg, [...] meals, Fabienne Palm MD, 4 Units at 08/10/251634 insulin lispro (Admelog) injection - Correction - Nighttime Dose, 0-3 Units, Subcutaneous, Twice atnight, Fabienne Palm MD, 1 Units at 08/09/252117 Insulin Lispro (Admelog, HumaLOG) 100 UNIT/ML injection 8 Units, 8 Units, Subcutaneous, TID with meals, Uche Fonseca MD, 8 Units at 08/10/251634 lisinopril tablet 40 mg, 40 mg, Oral, Daily, Mery Garcia PA, 40 mg at 08/10/25829 melatonin tablet 3 mg, 3 mg, Oral, Nightly PRN, Mery Garcia PA meropenem (Merrem) 2 g in sodium chloride 0.9 % 100 mL IVPB, 2 g, Intravenous, q8h, Uche Fonseca MD, Last Rate: 50 mL/hr at 08/10/25 163, 2 g at 08/10/251633 multivitamin (Theragran-M) tablet 1 tablet, 1 tablet, Oral, Daily, Mery Garcia PA, 1 tablet at 08/10/25835 polyethylene glycol (Miralax) packet 17 g, 17 g, Oral, Daily, Fabienne Palm MD, 17 g at 08/10/25829 [COMPLETED] Insert peripheral IV, , , Once [...] Patient lives with who does not drive. CousinSabina ([phone]) who can provide with transportation to hospital for OPAT evaluation on Saturday 12/2 PM. OPAT NN will continue to follow. Consuelo Solano RN 08/10/2025 * Progress Notes - Raymond Morris MD - 08/10/2025 4:43 PM EST Images from the original note were not included. [facility] Department of Surgery Division of [...] Edited by: Raymond Morris MD at 08/10/2025 6593 Review of Systems: Relevant review of systems [...] Edited by: Raymond Morris MD at 08/10/2025 8529 Dispo: The EGS team is available for questions or concerns Ralph Morris MD General Surgery, PGY 2 Pager: [phone] Cosigned by Carli Murrell MD at 08/16/2025 [...] Review Outcome: Ongoing, Progressing Flowsheets (Taken 08/10/2025 1537) Progress: improving Outcome Evaluation: POCV is reviewed and pt verbalized understanding. Plan of Care Reviewed With: patient Goal: Patient-Specific Goal (Individualized) Outcome: Ongoing, Progressing Flowsheets (Taken 08/10/2025 0900 by Elizabeth Ring, RN) Patient/Family-Specific Goals (Include Timeframe): pt will be free of falls and injury this shift. Individualized Care Needs: safety Anxieties, Fears or Concerns: none Goal: Absence of Hospital-Acquired Illness or Injury Outcome: Ongoing, Progressing Intervention: Prevent Skin Injury Flowsheets (Taken 08/10/2025 1400) Skin Protection: protective footwear used Intervention: Prevent and Manage VTE (Venous Thromboembolism) Risk Flowsheets (Taken 08/10/2025 1537) VTE Prevention/Management: education provided medication Intervention: Prevent Infection Flowsheets (Taken 08/10/2025 1537) Infection Prevention: environmental surveillance performed equipment surfaces [...] Develop Pain Management Plan Flowsheets (Taken 08/10/2025 153) Pain Management Interventions: rest Intervention: Prevent or [...] Provide Meticulous Infection Site Care Flowsheets (Taken 08/10/20251538) Topical Inflammation Care: other (see comments) Note: [...] T2DM, HTN, and HLD who presented to [facility] on 08[facility]07/[facility] with a left 4th toe puncture wound of two days duration. 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 Pt reports he removed nail andcleaned wound. He developed pain/swelling of L 4th toe 08/06/[facility] [place] where he was given Levofloxacin and Clindamycin, [...] Fabienne Palm MD 20 Units at 08/10/25 08 insulin lispro (Admelog) 100 units/mL injection - Correction - Resistant Dose 0- 10 Units Subcutaneous TID with meals Fabienne Palm MD 8 Units at 08/10/25 114 insulin lispro (Admelog) injection - Correction - [...] injury was at suburban construction site in [facility]. Also has cats at home, potential [...] Care Review Outcome: Ongoing, Progressing Flowsheets (Taken 08/10/2025536) Progress: improving Outcome Evaluation: POC reviewed with [...] Daily, Mery Garcia PA,150 mg at 08/09/25 0917 cholecalciferol (Vitamin D-3) tablet 1,000 Units, [...] including DM; peripheral neuropathy. Pt works delivering [employer] and on 08/05/2025 stepped on nichole or homewrap nail, which punctured through shoe and LEFT 4th toe. Pt reports he removed nail and cleaned wound. Pt developed pain/swelling of L 4th toe 08/06/2025 and seen at [facility]. Pt rx'ed on Levofloxacin and Clindamycin, tetanus booster --> CT reportedly showed small focus of gas in toe --> transferred to and admitted 08/07/2025 - current. Pt seen [...] Re: antibiotics: For now, while inpatient at [facility], pending the above: Continue empiric, [...] Note Hi Goode 60 y.o. male CSN: [id number] Admission: 08/07/2025 5:18 AM Primary Problem: Cellulitis and abscess of toe of left foot All Around Patternmaker reviewed chart and spoke with patient at bedside to complete this Initial Case Management Assessment. PCP: Iraida Reese APRN Emergency Contact: No emergency contact information on file. Insurance: Primary Visit Coverage Payer Plan Sponsor Code Group Number Group Name [employer]ICAID MOLINA PAS[employer]ORT MOLINA MEDICAID Primary Visit Coverage Subscriber Subscriber ID Subscriber Name Subscriber SSN Subscriber Address [id number] Hi Goode [id number] [address] [place] [address] Patient information: Primary Caregiver: Self Support System: Immediate family Daily Living Activities: Functional Status: Independent Living Arrangements: Spouse/Significant other Type of Residence: Private residence, Multi Level ([address]) [address] [address] Smoker in the Home?: No Current DME: [...] Dialysis Services: None Living Will/Advance Directive/Power of Accounts Payable Accountant /Guardian: Advance Directive: Patient does not have [...] Mckenzie Ashford RN Progress: no change Taken 08/08/2025 2211 by Maximo Escamilla RN Plan of Care [...] Progress Note Patient: Hi Goode PCP: Iraida Reese, ANIMAL STICKER Date: 08/09/2025 Day of admission: 2 Subjective [...] Daily, Mery Garcia PA, 5 mg at 918 hydroCHLOROthiazide (HYDRODiuril) tablet 25 mg, 25 mg, Oral, Daily, Mery Garcia PA, 25mg at 11/24/25 0917 ibuprofen tablet 400 mg, 400 mg, Oral, q6h PRN, Mery Garcia PA insulin glargine-yfgn 100 UNIT/ML injection 15 Units, 15 Units, Subcutaneous, BID, Fabienne Palm MD, 15 Units at 08/09/25 0918 insulin lispro (Admelog) 100 units/mL injection - [...] (vial adapter required), 3.375 g, Intravenous, q6h, Mrey Garcia PA, Last Rate: 36.7 mL/hr at [...] footwear used Intervention: Prevent Infection Flowsheets (Taken 08/08/20251514) Infection Prevention: environmental surveillance performed equipment surfaces disinfected hand hygiene promoted personal protective equipment utilized single patient room provided Goal: Optimal Comfort and Wellbeing Outcome: Ongoing, Progressing Intervention: Monitor Pain and Promote Comfort Flowsheets (Taken 08/08/20251514) Pain Management Interventions: quiet environment facilitated relaxation techniques promoted Intervention: Provide Person-Centered Care Flowsheets (Taken 08/08/2025 151) Trust Relationship/Rapport: care explained choices provided reassurance provided thoughts/feelings acknowledged emotional support provided empathic listening provided questions answered questions encouraged Problem: Pain Acute Goal: Optimal Pain Control and Function Outcome: Ongoing, Progressing Intervention: Optimize Psychosocial Wellbeing Flowsheets (Taken 08/08/20251514) Supportive Measures: active listening utilized positive reinforcement provided relaxation techniques promoted self-responsibility promoted verbalization of feelings encouraged Diversional Activities: television smartphone Spiritual Activities Assistance: affirmation provided Intervention: Develop Pain Management Plan Flowsheets (Taken 08/08/20251514) Pain Management Interventions: quiet environment facilitated relaxation techniques promoted Intervention: Prevent or Manage Pain Flowsheets Taken 08/08/20251514 by Olga Tomlin, ORLIN Sensory Stimulation Regulation: quiet environment promoted Sleep/Rest Enhancement: relaxation techniques promoted Taken 08/07/20252148 by Janie Ma RN Bowel Elimination Promotion: ambulation promoted Medication Review/Management: medications reviewed * Progress Notes - Fabienne Palm MD - 08/08/2025 10:50 AM EST Images from the original note were not included. General Medicine Inpatient Progress Note Patient: Hi Goode PCP: Iraida Reese, CHAKA Date: 08/08/2025 Day of admission: 1 Subjective [...] reviewed as applicable. Note to patient: The Cures Act makes medical notes like these [...] Oral, Daily, Mery Garcia PA, 25mg at 08/08/25804 ibuprofen tablet 400 mg, 400 mg, Oral, q6h PRN, Mery Garcia PA insulin glargine-yfgn 100 UNIT/ML injection 15 Units, 15 Units, Subcutaneous, BID, Fabienne Palm MD insulin lispro (Admelog) 100 units/mL injection - Correction - Resistant Dose, 0-10 Units, Subcutaneous, TID with meals, Fabienne Palm MD, 10 Units at 08/08/25813 insulin lispro (Admelog) injection - Correction - Nighttime Dose, 0-3 Units, Subcutaneous, Twice atnight, Fabienne Palm MD, 1 Units at 08/08/25 035 Insulin Lispro (Admelog, HumaLOG) 100 UNIT/ML injection 5 Units, 5 Units, Subcutaneous, TID with meals, Mery Garcia PA, 5 Units at 08/08/25813 lisinopril tablet 40 mg, 40 mg, Oral, Daily, Mery Garcia PA, 40 mg at 08/08/25804 melatonin tablet 3 mg, 3 mg, Oral, Nightly PRN, Mery Garcia PA multivitamin (Theragran-M) tablet 1 tablet, 1 tablet, Oral, Daily, Mery Garcia PA, 1 tablet at 08/08/25804 piperacillin-tazobactam (Zosyn) 3.375 g in sodium chloride 0.9% 100 mL IVPB (vial adapter required), 3.375 g, Intravenous, q6h, Mery Garcia PA, Last Rate: 36.7 mL/hr at 08/08/25800, 3.375 g at 08/08/25800 polyethylene glycol (Miralax) packet 17 g, 17 [...] T2DM, HTN, and HLD who presented to [facility] on 08/07/[facility] with a left 4th toe puncture wound of two days duration. ID team were consulted to provide recommendations on antibiotics andfurther workup for puncture wound. Mr. Goode presented to [facility] on the evening of 08/06/25 after stepping on a nail that went through his left shoe on 08/05/25 while helping a friend replace windows. He removed the nail and washed out the wound with peroxide but soon developed worsened pain and chills with streaking on Saturday, 08/06. At [facility] he was started on levaquin and clindamycin, [...] above history. 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 The following complex inpatient infectious disease services were performed today: Complex antimicrobial therapy counseling and treatment * H&P - Mery Garcia PA - 08/07/2025 1:34 PM ESTAssociated Order(s): Consult to [facility] Images from the original note were not included. Consult to [facility] Consult performed by: Mery Garcia PA Consult ordered by: Zay Dave MD Reason for consult: Admission Subjective Chief complaint Left foot pain after stepping on a nail two days ago. History Of Present Illness Hi Goode is a 60 y.o. male with PMH of insulin-dependent DM type II, HTN, and HLD, who presented 08/07/25 in transfer from [facility] with a left 4th toe puncture wound [...] alert. Psychiatric: Mood and Affect: Mood normal. [place] Coma Scale Score: 15 ED Course & [...] Give Nicotine Replacement Until discontinued Acknowledged MERY GRACIA 08/07/25 1332 Adult diet Diet texture: Regular; Carbohydrate restriction: Consistent Carb 2 (80 gm max/meal) Diet effective now Acknowledged MERY GARCIA 08/07/25 1332 Full code Continuous Acknowledged MERY GARCIA 08/07/25 1332 Admit to inpatient Once Completed MERY GARCIA 08/07/25 1332 Mobility Orders Until discontinued Acknowledged MERY GARCIA 08/07/25 1332 Notify physician (specify parameters) Until discontinued Acknowledged MERY GARCIA 08/07/25 1332 Insert peripheral IV Once Placed in And Linked Group Completed MERY GARCIA 08/07/25 1332 Saline lock IV Once Placed in And Linked Group Completed MERY GARCIA T 08/07/25 1002 Consult to [facility] Once Specialty: Internal Medicine Provider: (Not yet assigned) Completed ALIS REILLY 08/07/25 1002 ED to floor bed request Once Completed LAIS REILLY 08/07/25 0810 Consult to Emergency General Surgery Once Provider: (Not yet assigned) Completed ALIS REILLY 08/07/25625 Hepatitis C Antibody - ED Once Final result ALIS REILLY 08/07/25625 ED Protocol - HIV 1/2 Antibody/Antigen Screen Once Final result ALIS REILLY 08/07/25625 ED HIV 1/2 Antibody/Antigen Screen w/Reflex to [...] result ALIS REILLY ED Course as of 08/07/25 1828 Sat Aug 07, 2025 06 Upon initial [...] None Disposition Admit Admitting/Attending Physician: ORIANA CASTELAN [[id number]] Provider Care Team: EZE Fernandez [[id number]] Are they the primary team?: Yes [...] AM EST Patient arrives via EMS from [facility] for possible nec fasc in left 4th toe. Patient stepped on nail on . A&Ox4 on arrival. documented in this encounter Plan of Treatment Upcoming Encounters Date Type Department Care Team (Late st Contact Info) Description 09/24/2025 10:40 AM EST Office Visit [facility] at [facility] [address] [place] [address] Bossman Haywood DO [address] [place] [address] 09/30/2025 11:40 AM EST Office Visit [facility] [address]th Floor [address] [place] [address] Renea Li, ILEANA [address] [place] [address] Pending Results Name Type Priority Associated Diagnoses [...] - 99 mg/dL 08/16/2025 4:20 PM EST [facility] Comment:Accuracy of [...] for testing. Comment 08/16/2025 4:20 PM EST [facility] Etl Data Architect ID Carmen Reyes 4:20 PM EST [facility] Device ID [id number] 08/16/2025 4:20 PM EST [facility] Specimen Type POC Capillary 08/16/2025 4:20 PM EST [facility] Blood Capillary blood specimen / Unknown 08/16/2025 4:18 PM EST 08/16/2025 4:20 PM EST Uche Fonseca MD LAB POINT OF CARE TE ST DOCKED DEVICE UNSOLICITED RESULTS Final Result Performing Organization Address City/State/[facility] de Phone Number [facility] [address] [place] [address] * (ABNORMAL) POCT glucose meter (08/16/2025 11:12 AM EST) Pathologist [facility] POCT Glucose 269(H) 74 - 99 mg/dL [...] 08/16/2025 11:13 AM EST [facility] Etl Data Architect ID Carmen Reyes 11:13 AM EST [facility] Device ID [id number] 08/16/2025 11:13 AM EST [facility] Specimen Type POC Capillary 08/16/2025 11:13 AM EST [facility] Blood Capillary blood specimen / Unknown 08/16/2025 11:12 AM EST 08/16/2025 11:13 AM EST Uche Fonseca MD LAB POINT OF CARE TE ST DOCKED DEVICE UNSOLICITED RESULTS Final Result Performing Organization Address [facility] Co de Phone Number [facility] [address] [place] [address] * (ABNORMAL) POCT glucose meter (08/16/2025 8:02 AM EST) POCT Glucose 182(H) 74 - 99 mg/dL 08/16/2025 8:03 AM EST [facility] Comment:Accuracy of a glucos e result [...] for testing. Comment 08/16/2025 8:03 AM EST [facility] Etl Data Architect ID Carmen Reyes 8:03 AM EST [facility] Device ID [id number] 08/16/2025 8:03 AM EST [facility] Specimen Type POC Capillary 08/16/2025 8:03 AM EST [facility] Blood Capillary blood specimen / Unknown 08/16/2025 8:02 AM EST 08/16/2025 8:03 AM EST Uche Fonseca MD LAB POINT OF CARE TE ST DOCKED DEVICE UNSOLICITED RESULTS Final Result Performing Organization Address City/[facility] Co de Phone Number [facility] [address] [place] [address] * Phosphorus, Plasma (08/16/2025 2:57 AM EST) Phosphorus, Plasma 2.6 2.5 - 4.5 mg/dL 08/16/2025 3:36 AM EST [facility] Blood Venous blood specimen / Unknown Venipuncture / Unknown 08/16/2025 2:57 AM EST 08/16/2025 3:05 AM EST us Fabienne Palm MD LAB BLOOD ORDERABLES Coleen l Result [facility] [address] [place] [address] * Magnesium, Plasma (08/16/2025 2:57 AM EST) Magnesium, Plasma 2.1 1.9 - 2.4 mg/dL 08/16/2025 3:36 AM EST [facility] Blood Venous blood specimen / Unknown Venipuncture / Unknown 08/16/2025 2:57 AM EST 08/16/2025 3:05 AM EST us Fabienne Palm MD LAB BLOOD ORDERABLES Coleen l Result Performing Organization Address [facility] Co de Phone Number [facility] [address] [place] [address] * (ABNORMAL) Comprehensive metabolic panel (08/16/2025 2:57 AM EST) Glucose, Plasma 198(H) 74 - 99 mg/dL 08/16/2025 3:36 AM EST [facility] BUN, Plasma 30(H) 7 - 21 mg/dL 08/16/2025 3:36 AM EST [facility] Creatinine, Plasma 1.03 0.70 - 1.20 mg/dL 08/16/2025 3:36 AM EST [facility] BUN/Creatinine Ratio 29 08/16/2025 3:36 AM EST [facility] Sodium, Plasma 133(L) 136 - 145 mmol/L 08/16/2025 3:36 AM EST [facility] Potassium, Plasma 4.1 3.6 - 4.9 mmol/L 08/16/2025 3:36 AM EST [facility] Chloride, Plasma 100 97 - 107 mmol/L 08/16/2025 3:36 AM EST [facility] CO2, Plasma 22 22 - 29 mmol/L 08/16/2025 3:36 AM EST [facility] Anion Gap 11 6 - 16 mmol/L 08/16/2025 3:36 AM EST [facility] Total Calcium, Plasma 9.5 8.9 - 10.2 mg/dL 08/16/2025 3:36 AM EST [facility] Total Protein 6.4 6.3 - 7.9 g/dL 08/16/2025 3:36 AM EST [facility] Albumin, Plasma 3.3(L) 3.5 - 5.2 g/dL 08/16/2025 3:36 AM EST [facility] AST, Plasma 57(H) 10 - 50 U/L 08/16/2025 3:36 AM EST [facility] ALT, Plasma 55(H) 10 - 50 U/L 08/16/2025 3:36 AM EST [facility] Alkaline Phosphatase, Plasma 90 40 - 115 U/L 08/16/2025 3:36 AM EST [facility] Total Bilirubin, Plasma <0.2(L) 0.2 - 1.1 mg/dL 08/16/2025 3:36 AM EST [facility] eGFRcr 83.7 mL/min/1.7 3m*2 08/16/2025 3:36 AM EST [facility] Comment:Reported eGFRcr in m L/min/1.73m2 is based the CKD-EPI 2020 equation that does not use a race coefficient. Blood Venous blood specimen / Unknown Venipuncture / Unknown 08/16/2025 2:57 AM EST 08/16/2025 3:05 AM EST us Mery TEJEDA LAB BLOOD ORDERABLES F inal Result [facility] [address] [place] [address] * (ABNORMAL) CBC and differential (08/16/2025 2:57 AM EST) WBC Count 6.91 3.70 - 10.30 10*3/uL LAB HEMATOLOGY METHOD 08/16/2025 3:17 AM EST [facility] RBC Count 4.69 4.60 - 6.10 10*6/uL LAB HEMATOLOGY METHOD 08/16/2025 3:17 AM EST [facility] HGB 13.7 13.7 - 17.5 g/dL LAB HEMATOLOGY METHOD 08/16/2025 3:17 AM EST [facility] HCT 40.1 40.0 - 51.0 % LAB HEMATOLOGY METHOD 08/16/2025 3:17 AM [facility] Platelet Count 214 155 - 369 10*3/uL LAB HEMATOLOGY METHOD 08/16/2025 3:17 AM EST [facility] MCV 86 79 - 98 fL LAB HEMATOLOGY METHOD 08/16/2025 3:17 AM EST [facility] MCH 29.2 26.0 - 32.0 pg LAB HEMATOLOGY METHOD 08/16/2025 3:17 AM EST [facility] MCHC 34.2 30.7 - 35.5 g/dL LAB HEMATOLOGY METHOD 08/16/2025 3:17 AM [facility] RDW 11.4(L) 11.5 - 14.5 % LAB HEMATOLOGY METHOD 08/16/2025 3:17 AM [facility] MPV 11.8 8.8 - 12.5 fL LAB HEMATOLOGY METHOD 08/16/2025 3:17 AM [facility] nRBC 0.0 <=0.0 per 100 WBCs LAB HEMATOLOGY METHOD 08/16/2025 3:17 AM [facility] Differential Type Automated LAB HEMATOLOGY METHOD 08/16/2025 3:17 AM [facility] Neutrophils % 59 % LAB HEMATOLOGY METHOD 08/16/2025 3:17 AM [facility] Lymphocytes % 24 % LAB HEMATOLOGY METHOD 08/16/2025 3:17 AM [facility] Monocytes % 11 % LAB HEMATOLOGY METHOD 08/16/2025 3:17 AM [facility] Eosinophils % 4 % LAB HEMATOLOGY METHOD 08/16/2025 3:17 AM [facility] Basophils % 1 % LAB HEMATOLOGY METHOD 08/16/2025 3:17 AM [facility] Immature Granulocytes % 1 % LAB HEMATOLOGY METHOD 08/16/2025 3:17 AM [facility] Neutrophils Absolute 4.13 1.60 - 6.10 10*3/uL LAB HEMATOLOGY METHOD 08/16/2025 3:17 AM [facility] Lymphocytes Absolute 1.66 1.20 - 3.90 10*3/uL LAB HEMATOLOGY METHOD 08/16/2025 3:17 AM EST [facility] Monocytes Absolute 0.75 0.30 - 0.90 10*3/uL LAB HEMATOLOGY METHOD 08/16/2025 3:17 AM EST [facility] Eosinophils Absolute 0.25 0.00 - 0.50 10*3/uL LAB HEMATOLOGY METHOD 08/16/2025 3:17 AM EST [facility] Basophils Absolute 0.08 0.00 - 0.10 10*3/uL LAB HEMATOLOGY METHOD 08/16/2025 3:17 AM EST [facility] Immature Granulocytes Absolute 0.04 0.00 - 0.06 10*3/uL LAB HEMATOLOGY METHOD 08/16/2025 3:17 AM EST [facility] Blood Venous blood specimen / Unknown Venipuncture / Unknown 08/16/2025 2:57 AM EST 08/16/2025 3:06 AM EST Narrative [facility] - 08/16/2025 3:17 AM EST Therapeutic decision making should be based on absolute values, rather than percentages. [facility] LAB BLOOD ORDERABLES F inal Result Performing Organization Address City/[facility]/ZIP Co de Phone Number [facility] [address] [place] [address] * (ABNORMAL) C-Reactive Protein, Plasma (08/16/2025 2:57 AM EST) [facility] CRP, Plasma 8.6(H) <=8.0 mg/L 08/16/2025 3:36 AM EST [facility] Blood Venous blood specimen / Unknown Venipuncture / Unknown 08/16/2025 2:57 AM EST 08/16/2025 3:05 AM EST Narrative [facility] - 08/16/2025 3:36 AM EST This CRP test is appropriate for assessment of infection, systemic inflammation and/or tissue injury. To assess cardiovascular disease risk order high sensitivity CRP (CRPH). [employer] PA LAB BLOOD ORDERABLES F inal Result Performing Organization Address City/[facility]/ZIP Co de Phone Number [facility] [address] [place] [address] * (ABNORMAL) POCT glucose meter (08/15/2025 7:29 PM EST) Pathologist [facility] POCT Glucose 260(H) 74 - 99 mg/dL 08/15/2025 7:30 PM EST [facility] Comment:Accuracy of [...] for testing. Comment 08/15/2025 7:30 PM EST [facility] Etl Data Architect ID Carmen 08/15/2025 7:30 PM EST [facility] Device ID [id number] 08/15/2025 7:30 PM EST [facility] Specimen Type POC Capillary 08/15/2025 7:30 PM EST [facility] Blood Capillary blood specimen / Unknown 08/15/2025 7:29 PM EST 08/15/2025 7:30 PM EST Uche Fonseca MD LAB POINT OF CARE TE ST DOCKED DEVICE UNSOLICITED RESULTS Final Result Performing Organization Address City/State/[facility] Co de Phone Number [facility] [address] [place] [address] * (ABNORMAL) POCT glucose meter (08/15/2025 4:03 PM EST) [facility] POCT Glucose 195(H) 74 - 99 [...] 08/15/2025 4:05 PM EST [facility] Etl Data Architect ID Mare Dunne 08/15/2025 4:05 PM EST [facility] Device ID [id number] 08/15/2025 4:05 PM EST [facility] Specimen Type POC Capillary 08/15/2025 4:05 PM EST [facility] Blood Capillary blood specimen / Unknown 08/15/2025 4:03 PM EST 08/15/2025 4:05 PM EST Uche Fonseca MD LAB POINT OF CARE TE ST DOCKED DEVICE UNSOLICITED RESULTS Final Result Performing Organization Address City/[facility] Co de Phone Number [facility] [address] [place] [address] * (ABNORMAL) POCT glucose meter (08/15/2025 11:00 AM EST) POCT Glucose 224(H) 74 - 99 mg/dL [...] for testing. Comment 08/15/2025 11:01 AM EST [facility] Etl Data Architect ID Mare Dunne 08/15/2025 11:01 AM EST [facility] Device ID [id number] 08/15/2025 11:01 AM EST [facility] Specimen Type POC Capillary 08/15/2025 11:01 AM EST [facility] Blood Capillary blood specimen / Unknown 08/15/2025 11:00 AM EST 08/15/2025 11:01 AM EST Uche Fonseca MD LAB POINT OF CARE TE ST DOCKED DEVICE UNSOLICITED RESULTS Final Result [facility] [address] [place] [address] * (ABNORMAL) POCT glucose meter (08/15/2025 7:14 [...] testing. Comment 08/15/2025 7:16 AM EST [facility] Etl Data Architect ID Mare Dunne 08/15/2025 7:16 AM EST [facility] Device ID [id number] 08/15/2025 7:16 AM EST [facility] Specimen Type POC Capillary 08/15/2025 7:16 AM EST [facility] Blood Capillary blood specimen / Unknown 08/15/2025 7:14 AM EST 08/15/2025 7:16 AM EST us Uche Fonseca MD LAB POINT OF CARE TE ST DOCKED DEVICE UNSOLICITED RESULTS Final Result Performing Organization Address City/[facility] Co de Phone Number [facility] [address] [place] [address] * (ABNORMAL) POCT glucose meter (08/15/2025 3:10 AM EST) [facility] POCT Glucose 242(H) 74 - 99 mg/dL 08/15/2025 3:12 AM EST [facility] Comment:Accuracy of a glucos e result [...] for testing. Comment 08/15/2025 3:12 AM EST [facility] Etl Data Architect ID Willian Hicks 3:12 AM EST [facility] Device ID [id number] 08/15/2025 3:12 AM EST [facility] Specimen Type POC Capillary 08/15/2025 3:12 AM EST [facility] Blood Capillary blood specimen / Unknown 08/15/2025 3:10 AM EST 08/15/2025 3:12 AM EST us Uche Fonseca MD LAB POINT OF CARE TE ST DOCKED DEVICE UNSOLICITED RESULTS Final Result Performing Organization Address City/[facility]/ZIP Co de Phone Number [facility] [address] [place] [address] * Phosphorus, Plasma (08/15/2025 1:24 AM EST) Phosphorus, Plasma 3.2 2.5 - 4.5 mg/dL 08/15/2025 1:57 AM EST [facility] Blood Venous blood specimen / Unknown Venipuncture / Unknown 08/15/2025 1:24 AM EST 08/15/2025 1:28 AM EST us Fabienne Palm MD LAB BLOOD ORDERABLES Coleen l Result [facility] [address] [place] [address] * Magnesium, Plasma (08/15/2025 1:24 AM EST) Magnesium, Plasma 2.0 1.9 - 2.4 mg/dL 08/15/2025 1:57 AM EST [facility] Blood Venous blood specimen / Unknown Venipuncture / Unknown 08/15/2025 1:24 AM EST 08/15/2025 1:28 AM EST us Fabienne Palm MD LAB BLOOD ORDERABLES Coleen l Result [facility] [address] [place] [address] * (ABNORMAL) Basic metabolic panel (08/15/2025 1:24 AM EST) Glucose, Plasma 255(H) 74 - 99 mg/dL 08/15/2025 1:57 AM EST [facility] BUN, Plasma 35(H) 7 - 21 mg/dL 08/15/2025 1:57 AM EST [facility] Creatinine, Plasma 1.21(H) 0.70 - 1.20 mg/dL 08/15/2025 1:57 AM EST [facility] BUN/Creatinine Ratio 29 08/15/2025 1:57 AM EST [facility] Sodium, Plasma 134(L) 136 - 145 mmol/L 08/15/2025 1:57 AM EST [facility] Potassium, Plasma 4.6 3.6 - 4.9 mmol/L 08/15/2025 1:57 AM EST [facility] Chloride, Plasma 99 97 - 107 mmol/L 08/15/2025 1:57 AM EST [facility] CO2, Plasma 22 22 - 29 mmol/L 08/15/2025 1:57 AM EST [facility] Anion Gap 13 6 - 16 mmol/L 08/15/2025 1:57 AM EST [facility] Total Calcium, Plasma 9.3 8.9 - 10.2 mg/dL 08/15/2025 1:57 AM EST [facility] eGFRcr 69.0 mL/min/1.7 3m*2 08/15/2025 1:57 AM EST [facility] Comment:Reported eGFRcr in m L/min/1.73m2 is based the CKD-EPI 2020 equation that does not use a race coefficient. Blood Venous blood specimen / Unknown Venipuncture / Unknown 08/15/2025 1:24 AM EST 08/15/2025 1:28 AM EST Uche Fonseca MD LAB BLOOD ORDERABLES Final Re sult [facility] [address] [place] [address] * (ABNORMAL) POCT glucose meter (08/14/2025 7:54 PM EST) POCT Glucose 310(H) 74 - 99 mg/dL 08/14/2025 7:55 PM EST [facility] Comment:Accuracy of a glucos e result [...] for testing. Comment 08/14/2025 7:55 PM EST [facility] Etl Data Architect ID Willian Hicks 7:55 PM EST [facility] Device ID [id number] 08/14/2025 7:55 PM EST [facility] Specimen Type POC Capillary 08/14/2025 7:55 PM EST [facility] Blood Capillary blood specimen / Unknown 08/14/2025 7:54 PM EST 08/14/2025 7:55 PM EST Uche Fonseca MD LAB POINT OF CARE TE ST DOCKED DEVICE UNSOLICITED RESULTS Final Result Performing Organization Address City/[facility]/ZIP Co de Phone Number [facility] [address] [place] [address] * (ABNORMAL) POCT glucose meter (08/14/2025 4:06 PM EST) POCT Glucose 284(H) 74 - 99 mg/dL [...] for testing. Comment 08/14/2025 4:08 PM EST [facility] Etl Data Architect ID Joey Rutledge 08/14/2025 4:08 PM EST [facility] Device ID [id number] 08/14/2025 4:08 PM EST [facility] Specimen Type POC Capillary 08/14/2025 4:08 PM EST [facility] Blood Capillary blood specimen / Unknown 08/14/2025 4:06 PM EST 08/14/2025 4:08 PM EST Uche Fonseca MD LAB POINT OF CARE TE ST DOCKED DEVICE UNSOLICITED RESULTS Final Result [facility] [address] [place] [address] * (ABNORMAL) POCT glucose meter (08/14/2025 11:10 [...] for testing. Comment 08/14/2025 11:12 AM EST [facility] Etl Data Architect ID Joey Rutledge 08/14/2025 11:12 AM EST [facility] Device ID [id number] 08/14/2025 11:12 AM EST [facility] Specimen Type POC Capillary 08/14/2025 11:12 AM EST [facility] Blood Capillary blood specimen / Unknown 08/14/2025 11:10 AM EST 08/14/2025 11:12 AM EST us Uche Fonseca MD LAB POINT OF CARE TE ST DOCKED DEVICE UNSOLICITED RESULTS Final Result Performing Organization Address City/[facility]/ZIP Co de Phone Number [facility] [address] [place] [address] * (ABNORMAL) POCT glucose meter (08/14/2025 7:13 AM EST) [facility] POCT Glucose 206(H) 74 - 99 mg/dL 08/14/2025 7:15 AM EST [facility] Comment:Accuracy of a glucos e result [...] for testing. Comment 08/14/2025 7:15 AM EST [facility] Etl Data Architect ID Joey Rutledge 08/14/2025 7:15 AM EST [facility] Device ID [id number] 08/14/2025 7:15 AM EST [facility] Specimen Type POC Capillary 08/14/2025 7:15 AM EST [facility] Blood Capillary blood specimen / Unknown 08/14/2025 7:13 AM EST 08/14/2025 7:15 AM EST us Uche Fonseca MD LAB POINT OF CARE TE ST DOCKED DEVICE UNSOLICITED RESULTS Final Result [facility] [address] [place] [address] * (ABNORMAL) Phosphorus, Plasma (08/14/2025 3:18 AM EST) Phosphorus, Plasma 2.4(L) 2.5 - 4.5 mg/dL 08/14/2025 3:53 AM EST [facility] Blood Venous blood specimen / Unknown Venipuncture / Unknown 08/14/2025 3:18 AM EST 08/14/2025 3:23 AM EST us Fabienne Palm MD LAB BLOOD ORDERABLES Coleen l Result Performing Organization Address City/[facility]/ZIP Co de Phone Number [facility] [address] [place] [address] * Magnesium, Plasma (08/14/2025 3:18 AM EST) Magnesium, Plasma 2.0 1.9 - 2.4 mg/dL 08/14/2025 3:53 AM EST [facility] Blood Venous blood specimen / Unknown Venipuncture / Unknown 08/14/2025 3:18 AM EST 08/14/2025 3:23 AM EST us Fabienne Palm MD LAB BLOOD ORDERABLES Coleen l Result Performing Organization Address City/[facility]/ZIP Co de Phone Number [facility] [address] [place] [address] * (ABNORMAL) Basic metabolic panel (08/14/2025 3:18 AM EST) Glucose, Plasma 195(H) 74 - 99 mg/dL 08/14/2025 3:53 AM EST [facility] BUN, Plasma 24(H) 7 - 21 mg/dL 08/14/2025 3:53 AM EST [facility] Creatinine, Plasma 1.15 0.70 - 1.20 mg/dL 08/14/2025 3:53 AM EST [facility] BUN/Creatinine Ratio 21 08/14/2025 3:53 AM EST [facility] Sodium, Plasma 133(L) 136 - 145 mmol/L 08/14/2025 3:53 AM EST [facility] Potassium, Plasma 4.1 3.6 - 4.9 mmol/L 08/14/2025 3:53 AM EST [facility] Chloride, Plasma 99 97 - 107 mmol/L 08/14/2025 3:53 AM EST [facility] CO2, Plasma 23 22 - 29 mmol/L 08/14/2025 3:53 AM EST [facility] Anion Gap 11 6 - 16 mmol/L 08/14/2025 3:53 AM EST [facility] Total Calcium, Plasma 9.8 8.9 - 10.2 mg/dL 08/14/2025 3:53 AM EST [facility] eGFRcr 73.3 mL/min/1.7 3m*2 08/14/2025 3:53 AM EST [facility] Comment:Reported eGFRcr in m L/min/1.73m2 is based the CKD-EPI 2020 equation that does not use a race coefficient. Blood Venous blood specimen / Unknown Venipuncture / Unknown 08/14/2025 3:18 AM EST 08/14/2025 3:23 AM EST Uche Fonseca MD LAB BLOOD ORDERABLES Final Re sult [facility] [address] [place] [address] * (ABNORMAL) POCT glucose meter (08/14/2025 3:09 AM EST) POCT Glucose 215(H) 74 - 99 mg/dL 08/14/2025 3:21 AM EST [facility] Comment:Accuracy of a glucos e result [...] for testing. Comment 08/14/2025 3:21 AM EST [facility] Etl Data Architect ID Garry Gonzales 08/14/2025 3:21 AM EST [facility] Device ID [id number] 08/14/2025 3:21 AM EST [facility] Specimen Type POC Capillary 08/14/2025 3:21 AM EST [facility] Blood Capillary blood specimen / Unknown 08/14/2025 3:09 AM EST 08/14/2025 3:21 AM EST Uche Fonseca MD LAB POINT OF CARE TE ST DOCKED DEVICE UNSOLICITED RESULTS Final Result Performing Organization Address City/[facility]/ZIP Co de Phone Number [facility] [address] [place] [address] * (ABNORMAL) POCT glucose meter (08/13/2025 8:10 [...] for testing. Comment 08/13/2025 8:16 PM EST [facility] Etl Data Architect ID Garry Gonzales 08/13/2025 8:16 PM EST [facility] Device ID [id number] 08/13/2025 8:16 PM EST [facility] Specimen Type POC Capillary 08/13/2025 8:16 PM EST [facility] Blood Capillary blood specimen / Unknown 08/13/2025 8:10 PM EST 08/13/2025 8:16 PM EST Uche Fonseca MD LAB POINT OF CARE TE ST DOCKED DEVICE UNSOLICITED RESULTS Final Result [facility] [address] [place] [address] * (ABNORMAL) POCT glucose meter (08/13/2025 4:05 [...] for testing. Comment 08/13/2025 4:06 PM EST [facility] Etl Data Architect ID Amisha Lomas 08/13/2025 4:06 PM EST [facility] Device ID [id number] 08/13/2025 4:06 PM EST [facility] Specimen Type POC Capillary 08/13/2025 4:06 PM EST [facility] Blood Capillary blood specimen / Unknown 08/13/2025 4:05 PM EST 08/13/2025 4:06 PM EST us Uche Fonseca MD LAB POINT OF CARE TE ST DOCKED DEVICE UNSOLICITED RESULTS Final Result Performing Organization Address City/State/[facility] Co de Phone Number [facility] [address] [place] [address] * (ABNORMAL) POCT glucose meter (08/13/2025 11:50 AM EST) [facility] POCT Glucose 252(H) 74 - 99 mg/dL 08/13/2025 11:52 AM EST [facility] Comment:Accuracy of a glucos e result [...] for testing. Comment 08/13/2025 11:52 AM EST [facility] Etl Data Architect ID Amisha Lomas 08/13/2025 11:52 AM EST [facility] Device ID [id number] 08/13/2025 11:52 AM EST [facility] Specimen Type POC Capillary 08/13/2025 11:52 AM EST [facility] Blood Capillary blood specimen / Unknown 08/13/2025 11:50 AM EST 08/13/2025 11:52 AM EST us Uche Fonseca MD LAB POINT OF CARE TE ST DOCKED DEVICE UNSOLICITED RESULTS Final Result Performing Organization Address [facility]/ZIP Co de Phone Number [facility] [address] [place] [address] * Vancomycin, Peak, Plasma Please draw ~2 hours after 0600 dose of vancomycin finishes infusing. Consider obtaining level via peripheral stick. If peripheral stick is not feasible, please ensure that line is flushed well prior to drawing level. Than... (08/13/2025 9:12 AM EST) Pathologist [facility] Vancomycin, Peak, Plasma 33.3 20.0 - 40.0 ug/mL 08/13/2025 9:44 AM EST [facility] Blood Venous blood specimen / Unknown Venipuncture / Unknown 08/13/2025 9:12 AM EST 08/13/2025 9:16 AM EST Narrative [facility] - 08/13/2025 9:44 AM EST Therapeutic Peak level: 20-40ug/mL Supra-therapeutic Peak level: >40 ug/mL Uche Fonseca MD LAB BLOOD ORDERABLES Final Re sult Performing Organization Address City/[facility]/ZIP Co de Phone Number [facility] [address] [place] [address] * (ABNORMAL) POCT glucose meter (08/13/2025 7:29 AM EST) [facility] POCT Glucose 218(H) 74 - 99 mg/dL 08/13/2025 7:30 AM EST [facility] Comment:Accuracy of a glucos e result [...] for testing. Comment 08/13/2025 7:30 AM EST [facility] Etl Data Architect ID Amisha Lomas 08/13/2025 7:30 AM EST [facility] Device ID [id number] 08/13/2025 7:30 AM EST [facility] Specimen Type POC Capillary 08/13/2025 7:30 AM EST [facility] Blood Capillary blood specimen / Unknown 08/13/2025 7:29 AM EST 08/13/2025 7:30 AM EST Uche Fonseca MD LAB POINT OF CARE TE ST DOCKED DEVICE UNSOLICITED RESULTS Final Result Performing Organization Address City/[facility]/ZIP Co de Phone Number [facility] [address] [place] [address] * Lavender Top (08/13/2025 5:39 AM EST) Extra Hold for add-ons 08/13/2025 8:01 AM EST [facility] Comment:Auto resulted. Blood Venous blood specimen / Unknown 08/13/2025 5:39 AM EST 08/13/2025 5:44 AM EST Uche Fonseca MD LAB BLOOD ORDERABLES Final Re sult Performing Organization Address City/[facility] Co de Phone Number [facility] [address] [place] [address] * (ABNORMAL) Phosphorus, Plasma (08/13/2025 5:39 AM EST) Phosphorus, Plasma 2.0(L) 2.5 - 4.5 mg/dL 08/13/2025 6:15 AM EST [facility] Blood Venous blood specimen / Unknown Venipuncture / Unknown 08/13/2025 5:39 AM EST 08/13/2025 5:46 AM EST Fabienne Palm MD LAB BLOOD ORDERABLES Coleen l Result [facility] [address] [place] [address] * Magnesium, Plasma (08/13/2025 5:39 AM EST) Magnesium, Plasma 2.1 1.9 - 2.4 mg/dL 08/13/2025 6:15 AM EST [facility] Blood Venous blood specimen / Unknown Venipuncture / Unknown 08/13/2025 5:39 AM EST 08/13/2025 5:46 AM EST us Fabienne Palm MD LAB BLOOD ORDERABLES Coleen l Result Performing Organization Address [facility]/ZIP Co de Phone Number [facility] [address] [place] [address] * Vancomycin, Trough, Plasma Please draw ~30 minutes prior to dose due at 0600 on 08/13. Please do NOT hold dose awaiting level to return. Consider obtaining level via peripheral stick. If peripheral stick is not feasible, please ensure that line i... (08/13/2025 5:39 AM EST) Vancomycin, Trough, Plasma 13.7 10.0 - 20.0 ug/mL 08/13/2025 6:15 AM EST [facility] Blood Venous blood specimen / Unknown Venipuncture / Unknown 08/13/2025 5:39 AM EST 08/13/2025 5:46 AM EST Narrative [facility] - 08/13/2025 6:15 AM EST Therapeutic Trough level: 10-20ug/mL Supra-therapeutic Trough level: >20 ug/mL Uche Fonseca MD LAB BLOOD ORDERABLES Final Re sult Performing Organization Address [facility] Co de Phone Number [facility] [address] [place] [address] * (ABNORMAL) Basic metabolic panel (08/13/2025 5:39 AM EST) Glucose, Plasma 188(H) 74 - 99 mg/dL 08/13/2025 6:15 AM EST [facility] BUN, Plasma 22(H) 7 - 21 mg/dL 08/13/2025 6:15 AM EST [facility] Creatinine, Plasma 1.08 0.70 - 1.20 mg/dL 08/13/2025 6:15 AM EST [facility] BUN/Creatinine Ratio 20 08/13/2025 6:15 AM EST [facility] Sodium, Plasma 136 136 - 145 mmol/L 08/13/2025 6:15 AM EST [facility] Potassium, Plasma 4.7 3.6 - 4.9 mmol/L 08/13/2025 6:15 AM EST [facility] Chloride, Plasma 102 97 - 107 mmol/L 08/13/2025 6:15 AM EST [facility] CO2, Plasma 24 22 - 29 mmol/L 08/13/2025 6:15 AM EST [facility] Anion Gap 10 6 - 16 mmol/L 08/13/2025 6:15 AM EST [facility] Total Calcium, Plasma 9.7 8.9 - 10.2 mg/dL 08/13/2025 6:15 AM EST [facility] eGFRcr 79.1 mL/min/1.7 3m*2 08/13/2025 6:15 AM EST [facility] Comment:Reported eGFRcr in m L/min/1.73m2 is based the CKD-EPI 2020 equation that does not use a race coefficient. Blood Venous blood specimen / Unknown Venipuncture / Unknown 08/13/2025 5:39 AM EST 08/13/2025 5:46 AM EST Uche Fonseca MD LAB BLOOD ORDERABLES Final Re sult [facility] [address] [place] [address] * (ABNORMAL) POCT glucose meter (08/12/2025 7:44 PM EST) POCT Glucose 195(H) 74 - 99 mg/dL 08/12/2025 7:46 PM EST [facility] Comment:Accuracy of a [...] for testing. Comment 08/12/2025 7:46 PM EST [facility] Etl Data Architect ID Ana Ramirez [id number] 7:46 PM EST [facility] Device ID [id number] 08/12/2025 7:46 PM EST [facility] Specimen Type POC Capillary 08/12/2025 7:46 PM EST [facility] Blood Capillary blood specimen / Unknown 08/12/2025 7:44 PM EST 08/12/2025 7:46 PM EST Uche Fonseca MD LAB POINT OF CARE TE ST DOCKED DEVICE UNSOLICITED RESULTS Final Result Performing Organization Address [facility] de Phone Number [facility] [address] [place] [address] * (ABNORMAL) POCT glucose meter (08/12/2025 4:06 PM EST) POCT Glucose 236(H) 74 - 99 mg/dL [...] for testing. Comment 08/12/2025 4:07 PM EST [facility] Etl Data Architect ID Solo Boyd 08/12/2025 4:07 PM EST [facility] Device ID [id number] 08/12/2025 4:07 PM EST [facility] Specimen Type POC Capillary 08/12/2025 4:07 PM EST [facility] Blood Capillary blood specimen / Unknown 08/12/2025 4:06 PM EST 08/12/2025 4:07 PM EST Uche Fonseca MD LAB POINT OF CARE TE ST DOCKED DEVICE UNSOLICITED RESULTS Final Result Performing Organization Address City/[facility] Co de Phone Number [facility] [address] [place] [address] * (ABNORMAL) POCT glucose meter (08/12/2025 11:02 [...] 08/12/2025 11:03 AM EST [facility] Etl Data Architect ID Solo Boyd 08/12/2025 11:03 AM EST [facility] Device ID [id number] 08/12/2025 11:03 AM EST [facility] Specimen Type POC Capillary 08/12/2025 11:03 AM EST [facility] Blood Capillary blood specimen / Unknown 08/12/2025 11:02 AM EST 08/12/2025 11:03 AM EST Uche Fonseca MD LAB POINT OF CARE TE ST DOCKED DEVICE UNSOLICITED RESULTS Final Result Performing Organization Address City/[facility] Co de Phone Number [facility] [address] [place] [address] * (ABNORMAL) POCT glucose meter (08/12/2025 7:14 AM EST) POCT Glucose 185(H) 74 - 99 mg/dL 08/12/2025 7:16 AM EST [facility] Comment:Accuracy of a glucos e result [...] for testing. Comment 08/12/2025 7:16 AM EST [email or web address] Etl Data Architect ID Solo Boyd 08/12/2025 7:16 AM EST [email or web address] Device ID [id number] 08/12/2025 7:16 AM EST [facility] Specimen Type POC Capillary 08/12/2025 7:16 AM EST [facility] Blood Capillary blood specimen / Unknown 08/12/2025 7:14 AM EST 08/12/2025 7:16 AM EST Uche Fonseca MD LAB POINT OF CARE TE ST DOCKED DEVICE UNSOLICITED RESULTS Final Result Performing Organization Address City/[facility]/ZIP Co de Phone Number [facility] [address] [place] [address] * Phosphorus, Plasma (08/12/2025 3:09 AM EST) Phosphorus, Plasma 2.7 2.5 - 4.5 mg/dL 08/12/2025 3:45 AM EST [facility] Blood Venous blood specimen / Unknown Venipuncture / Unknown 08/12/2025 3:09 AM EST 08/12/2025 3:15 AM EST us Fabienne Palm MD LAB BLOOD ORDERABLES Coleen l Result [facility] [address] [place] [address] * Magnesium, Plasma (08/12/2025 3:09 AM EST) Magnesium, Plasma 2.0 1.9 - 2.4 mg/dL 08/12/2025 3:45 AM EST [facility] Blood Venous blood specimen / Unknown Venipuncture / Unknown 08/12/2025 3:09 AM EST 08/12/2025 3:15 AM EST us Fabienne Palm MD LAB BLOOD ORDERABLES Coleen l Result Performing Organization Address City/[facility]/ZIP Co de Phone Number [facility] [address] [place] [address] * (ABNORMAL) Comprehensive metabolic panel (08/12/2025 3:09 AM EST) Glucose, Plasma 231(H) 74 - 99 mg/dL 08/12/2025 3:45 AM EST [facility] BUN, Plasma 24(H) 7 - 21 mg/dL 08/12/2025 3:45 AM EST [facility] Creatinine, Plasma 1.21(H) 0.70 - 1.20 mg/dL 08/12/2025 3:45 AM EST [facility] BUN/Creatinine Ratio 20 08/12/2025 3:45 AM EST [facility] Sodium, Plasma 135(L) 136 - 145 mmol/L 08/12/2025 3:45 AM EST [facility] Potassium, Plasma 4.3 3.6 - 4.9 mmol/L 08/12/2025 3:45 AM EST [facility] Chloride, Plasma 102 97 - 107 mmol/L 08/12/2025 3:45 AM EST [facility] CO2, Plasma 22 22 - 29 mmol/L 08/12/2025 3:45 AM EST [facility] Anion Gap 11 6 - 16 mmol/L 08/12/2025 3:45 AM EST [facility] Total Calcium, Plasma 9.1 8.9 - 10.2 mg/dL 08/12/2025 3:45 AM EST [facility] Total Protein 6.1(L) 6.3 - 7.9 g/dL 08/12/2025 3:45 AM EST [facility] Albumin, Plasma 3.1(L) 3.5 - 5.2 g/dL 08/12/2025 3:45 AM EST [facility] AST, Plasma 17 10 - 50 U/L 08/12/2025 3:45 AM EST [facility] ALT, Plasma 28 10 - 50 U/L 08/12/2025 3:45 AM EST [facility] Alkaline Phosphatase, Plasma 66 40 - 115 U/L 08/12/2025 3:45 AM EST [facility] Total Bilirubin, Plasma 0.3 0.2 - 1.1 mg/dL 08/12/2025 3:45 AM EST [facility] eGFRcr 69.0 mL/min/1.7 3m*2 08/12/2025 3:45 AM EST [facility] Comment:Reported eGFRcr in m L/min/1.73m2 is based the CKD-EPI 2020 equation that does not use a race coefficient. Blood Venous blood specimen / Unknown Venipuncture / Unknown 08/12/2025 3:09 AM EST 08/12/2025 3:15 AM EST us Mery TEJEDA LAB BLOOD ORDERABLES F inal Result [facility] [address] [place] [address] * (ABNORMAL) CBC and differential (08/12/2025 3:09 AM EST) WBC Count 6.41 3.70 - 10.30 10*3/uL LAB HEMATOLOGY METHOD 08/12/2025 3:36 AM EST [facility] RBC Count 4.48(L) 4.60 - 6.10 10*6/uL LAB HEMATOLOGY METHOD 08/12/2025 3:36 AM EST [facility] HGB 13.1(L) 13.7 - 17.5 g/dL LAB HEMATOLOGY METHOD 08/12/2025 3:36 AM EST [facility] HCT 38.6(L) 40.0 - 51.0 % LAB HEMATOLOGY METHOD 08/12/2025 3:36 AM EST [facility] Platelet Count 171 155 - 369 10*3/uL LAB HEMATOLOGY METHOD 08/12/2025 3:36 AM EST [facility] MCV 86 79 - 98 fL LAB HEMATOLOGY METHOD 08/12/2025 3:36 AM [facility] MCH 29.2 26.0 - 32.0 pg LAB HEMATOLOGY METHOD 08/12/2025 3:36 AM EST [facility] MCHC 33.9 30.7 - 35.5 g/dL LAB HEMATOLOGY METHOD 08/12/2025 3:36 AM [facility] RDW 11.5 11.5 - 14.5 % LAB HEMATOLOGY METHOD 08/12/2025 3:36 AM [facility] MPV 11.9 8.8 - 12.5 fL LAB HEMATOLOGY METHOD 08/12/2025 3:36 AM [facility] nRBC 0.0 <=0.0 per 100 WBCs LAB HEMATOLOGY METHOD 08/12/2025 3:36 AM [facility] Differential Type Automated LAB HEMATOLOGY METHOD 08/12/2025 3:36 AM [facility] Neutrophils % 62 % LAB HEMATOLOGY METHOD 08/12/2025 3:36 AM [facility] Lymphocytes % 21 % LAB HEMATOLOGY METHOD 08/12/2025 3:36 AM EST [facility] Monocytes % 13 % LAB HEMATOLOGY METHOD 08/12/2025 3:36 AM [facility] Eosinophils % 3 % LAB HEMATOLOGY METHOD 08/12/2025 3:36 AM EST [facility] Basophils % 1 % LAB HEMATOLOGY METHOD 08/12/2025 3:36 AM EST [facility] Immature Granulocytes % 0 % LAB HEMATOLOGY METHOD 08/12/2025 3:36 AM EST [facility] Neutrophils Absolute 3.97 1.60 - 6.10 10*3/uL LAB HEMATOLOGY METHOD 08/12/2025 3:36 AM EST [facility] Lymphocytes Absolute 1.33 1.20 - 3.90 10*3/uL LAB HEMATOLOGY METHOD 08/12/2025 3:36 AM EST [facility] Monocytes Absolute 0.83 0.30 - 0.90 10*3/uL LAB HEMATOLOGY METHOD 08/12/2025 3:36 AM EST [facility] Eosinophils Absolute 0.21 0.00 - 0.50 10*3/uL LAB HEMATOLOGY METHOD 08/12/2025 3:36 AM EST [facility] Basophils Absolute 0.05 0.00 - 0.10 10*3/uL LAB HEMATOLOGY METHOD 08/12/2025 3:36 AM EST [facility] Immature Granulocytes Absolute 0.02 0.00 - 0.06 10*3/uL LAB HEMATOLOGY METHOD 08/12/2025 3:36 AM EST [facility] Blood Venous blood specimen / Unknown Venipuncture / Unknown 08/12/2025 3:09 AM EST 08/12/2025 3:15 AM EST Narrative [facility] - 08/12/2025 3:36 AM EST Therapeutic decision making should be based on absolute values, rather than percentages. Mery TEJEDA LAB BLOOD ORDERABLES F inal Result [facility] [address] [place] [address] * (ABNORMAL) POCT glucose meter (08/11/2025 9:41 PM EST) [facility] POCT Glucose 230(H) 74 - 99 mg/dL 08/11/2025 9:43 PM EST [facility] Comment:Accuracy of a glucos e result [...] for testing. Comment 08/11/2025 9:43 PM EST [facility] Etl Data Architect ID Coreen Buckley 08/11/2025 9:43 PM EST [facility] Device ID [id number] 08/11/2025 9:43 PM EST [facility] Specimen Type POC Capillary 08/11/2025 9:43 PM EST [facility] Blood Capillary blood specimen / Unknown 08/11/2025 9:41 PM EST 08/11/2025 9:43 PM EST Uche Fonseca MD LAB POINT OF CARE TE ST DOCKED DEVICE UNSOLICITED RESULTS Final Result Performing Organization Address City/[facility]/ZIP Co de Phone Number [facility] [address] [place] [address] * (ABNORMAL) POCT glucose meter (08/11/2025 7:37 [...] Comment 08/11/2025 7:38 PM EST [facility] Etl Data Architect ID Coreen Buckley 08/11/2025 7:38 PM EST [facility] Device ID [id number] 08/11/2025 7:38 PM EST [facility] Specimen Type POC Capillary 08/11/2025 7:38 PM EST [facility] Blood Capillary blood specimen / Unknown 08/11/2025 7:37 PM EST 08/11/2025 7:38 PM EST Uche Fonseca MD LAB POINT OF CARE TE ST DOCKED DEVICE UNSOLICITED RESULTS Final Result Performing Organization Address City/[facility]/ZIP Co de Phone Number [facility] [address] [place] [address] * (ABNORMAL) POCT glucose meter (08/11/2025 4:03 PM EST) POCT Glucose 195(H) 74 - 99 mg/dL 08/11/2025 4:05 PM EST [facility] Comment:Accuracy of a [...] for testing. Comment 08/11/2025 4:05 PM EST [facility] Etl Data Architect ID Joey Rutledge 08/11/2025 4:05 PM EST [facility] Device ID [id number] 08/11/2025 4:05 PM EST [facility] Specimen Type POC Capillary 08/11/2025 4:05 PM EST [facility] Blood Capillary blood specimen / Unknown 08/11/2025 4:03 PM EST 08/11/2025 4:05 PM EST Uche Fonseca MD LAB POINT OF CARE TE ST DOCKED DEVICE UNSOLICITED RESULTS Final Result [facility] [address] [place] [address] * [place] Less than 1 Hour Intraoperative (08/11/2025 1:30 PM EST) Narrative IMAGING - 08/11/2025 8:16 PM EST Images were obtained for surgical purposes. See Andie Moyer's surgical note in the patient's chart for the findings. us Andie Moyer MD IMG FLUOROSCOPY PROCEDURE S Final Result IMAGING * (ABNORMAL) POCT glucose meter (08/11/2025 1:17 PM EST) POCT Glucose 137(H) 74 - 99 mg/dL 08/11/2025 1:19 PM EST [facility] Comment:Accuracy of [...] Comment 08/11/2025 1:19 PM EST [facility] Etl Data Architect ID Maritza Dominguez 08/11/2025 1:19 PM EST [facility] Device ID [id number] 08/11/2025 1:19 PM EST [facility] Specimen Type POC Capillary 08/11/2025 1:19 PM EST [facility] Blood Capillary blood specimen / Unknown 08/11/2025 1:17 PM EST 08/11/2025 1:19 PM EST Uche Fonseca MD LAB POINT OF CARE TE ST DOCKED DEVICE UNSOLICITED RESULTS Final Result Performing Organization Address City/[facility]/ZIP Co de Phone Number [facility] [address] [place] [address] * Fungal Culture, Tissue and BACILIO (08/11/2025 1:02 PM EST) Culture Reading Mycological 4 Weeks No Fungal Growth at 4 Weeks 09/08/2025 9:02 AM EST [facility] BACILIO No fungal elements seen 09/08/2025 9:02 AM EST [facility] Bone Structure of toe of left foot / Unknown 08/11/2025 1:02 PM EST 08/11/2025 1:38 PM EST Comment:Pre-op diagnosis: Cellulitis and abscess of toe of left foot [L03.032, L02.612] Andie Moyer MD LAB MICROBIOLOGY - GENERA L ORDERABLES Final Result [facility] [address] [place] [address] * (ABNORMAL) Bone Culture and Gram Stain (08/11/2025 1:02 PM EST) Culture Light Growth 08/13/2025 1:45 PM EST [facility] Culture Staphylococcus aureus(A) 08/13/2025 1:45 PM EST [facility] Comment: For susceptibility results refer to: - [facility]-[id number] The organism value for this result has been updated. These results have been appended to the previously preliminary verified report. Gram Stain Result No polymorphonuclear leukocytes seen 08/13/2025 1:45 PM EST [facility] Gram Stain Result No organisms seen 08/13/2025 1:45 PM EST [facility] Bone Structure of toe of left foot / Unknown 08/11/2025 1:02 PM EST 08/11/2025 1:38 PM EST Comment:Pre-op diagnosis: Cellulitis and abscess of toe of left foot [L03.032, L02.612] Andie Moyer MD LAB MICROBIOLOGY - GENERA L ORDERABLES Final Result Performing Organization Address City/[facility] Co de Phone Number [facility] [address] [place] [address] * Anaerobic Culture (08/11/2025 1:02 PM EST) Culture No anaerobes isolated 08/15/2025 11:08 AM EST [facility] Bone Structure of toe of left foot / Unknown 08/11/2025 1:02 PM EST 08/11/2025 1:38 PM EST Comment:Pre-op diagnosis: Cellulitis and abscess of toe of left foot [L03.032, L02.612] Andie Moyer MD LAB MICROBIOLOGY - GENERA L ORDERABLES Final Result Performing Organization Address City/[facility]/ZIP Co de Phone Number [facility] [address] [place] [address] * Fungal Culture, Tissue and BACILIO (08/11/2025 1:00 PM EST) Culture Reading Mycological 4 Weeks No Fungal Growth at 4 Weeks 09/08/2025 9:02 AM EST [facility] BACILIO No fungal elements seen 09/08/2025 9:02 AM EST [facility] Bone Structure of toe of left foot / Unknown 08/11/2025 1:00 PM EST 08/11/2025 1:39 PM EST Comment:Pre-op diagnosis: Cellulitis and abscess of toe of left foot [L03.032, L02.612] Andie Moyer MD LAB MICROBIOLOGY - GENERA L ORDERABLES Final Result [facility] [address] [place] [address] * (ABNORMAL) Bone Culture and Gram Stain (08/11/2025 1:00 PM EST) Culture Moderate Growth 12:51 PM EST [facility] Culture Staphylococcus aureus(A) TOMMIE 08/14/2025 12:51 PM EST [facility] Comment:The organism value f or this result has been updated. These results have been appended to the previously preliminary verified report. Gram Stain Result Few Polymorphonuclear leukocytes(A) 08/14/2025 12:51 PM EST [facility] Gram Stain Result Few Gram positive cocci in pairs(A) 08/14/2025 12:51 PM EST [facility] Bone Structure of toe of [...] L ORDERABLES Final Result Performing Organization Address [facility] Co de Phone Number [facility] [address] [place] [address] * Anaerobic Culture (08/11/2025 1:00 PM EST) Culture Mixed aerobic and anaerobic carmine 08/15/2025 11:08 AM EST [facility] Bone Structure of toe of left foot / Unknown 08/11/2025 1:00 PM EST 08/11/2025 1:39 PM EST Comment:Pre-op diagnosis: Cellulitis and abscess of toe of left foot [L03.032, L02.612] us Andie Moyer MD LAB MICROBIOLOGY - GENERA L ORDERABLES Final Result Performing Organization Address [facility] Co de Phone Number [facility] [address] [place] [address] * Surgical Pathology Exam (08/11/2025 12:57 PM EST) Case Report Surgical Pathology Case: [id number] Authorizing Provider: Andie Moyer MD Collected: 08/11/2025 1257 Ordering Location: [facility] Received: 08/11/2025 1317 Pathologist: Diana King MD Specimen: Toe, Left, 4th Left Toe 08/16/2025 12:51 PM EST [facility] Final Diagnosis A. 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 - NO ACUTE OSTEOMYELITIS IDENTIFIED 08/16/2025 12:51 PM EST [facility] at 1251 EST Clinical Information Cellulitis and abscess of toe of left foot [L03.032, L02.612] 08/16/2025 12:51 PM EST [facility] Gross Description A. 4TH LEFT [...] resection margin is a roughened cut surface. Teaching Pastor sections are submitted in cassettes A1-A3 as follows: A1: Skin resection margin. A2: Roughened bone resection margin, submitted for decal. A3: Full-thickness cross section of ulceration with underlying bone, submitted for decal. Amisha Abrams 08/16/2025 12:51 PM EST [facility] Bone Structure of toe of left foot / Unknown 08/11/2025 12:57 PM EST 08/11/2025 1:17 PM EST Comment:Pre-op diagnosis: Cellulitis and abscess of toe of left foot [L03.032, L02.612] us Andie Moyer MD LAB PATHOLOGY ORDERABLES Final Result Performing Organization Address City/[facility]/ZIP Co de Phone Number [facility] [address] [place] [address] * (ABNORMAL) POCT glucose meter (08/11/2025 11:42 AM EST) POCT Glucose 177(H) 74 - 99 mg/dL 08/11/2025 11:44 AM EST [facility] Comment:Accuracy of a glucos e result [...] for testing. Comment 08/11/2025 11:44 AM EST [facility] Etl Data Architect ID Nidia Hernandez 025 11:44 AM EST [facility] Device ID [id number] 08/11/2025 11:44 AM EST [facility] Specimen Type POC Capillary 08/11/2025 11:44 AM EST [facility] Blood Capillary blood specimen / Unknown 08/11/2025 11:42 AM EST 08/11/2025 11:44 AM EST us Uche Fonseca MD LAB POINT OF CARE TE ST DOCKED DEVICE UNSOLICITED RESULTS Final Result [facility] [address] [place] [address] * (ABNORMAL) POCT glucose meter (08/11/2025 7:39 AM EST) [facility] POCT Glucose 226(H) 74 - 99 [...] Comment 08/11/2025 7:41 AM EST [facility] Etl Data Architect ID Joey Rutledge 08/11/2025 7:41 AM EST [facility] Device ID [id number] 08/11/2025 7:41 AM EST [facility] Specimen Type POC Capillary 08/11/2025 7:41 AM EST [facility] Blood Capillary blood specimen / Unknown 08/11/2025 7:39 AM EST 08/11/2025 7:41 AM EST Uche Fonseca MD LAB POINT OF CARE TE ST DOCKED DEVICE UNSOLICITED RESULTS Final Result Performing Organization Address [facility] de Phone Number [facility] [address] [place] [address] * (ABNORMAL) Sedimentation Rate, Automated (08/11/2025 3:30 AM EST) [facility] Sedimentation Rate 58(H) <20 mm/hr 2024 4:54 AM EST [facility] Blood Venous blood specimen / Unknown Venipuncture / Unknown 08/11/2025 3:30 AM EST 08/11/2025 4:19 AM EST Uche Fonseca MD LAB BLOOD ORDERABLES Final Re sult Performing Organization Address City/[facility] Co de Phone Number [facility] [address] [place] [address] * Phosphorus, Plasma (08/11/2025 3:30 AM EST) Phosphorus, Plasma 2.7 2.5 - 4.5 mg/dL 08/11/2025 4:58 AM EST [facility] Blood Venous blood specimen / Unknown Venipuncture / Unknown 08/11/2025 3:30 AM EST 08/11/2025 4:17 AM EST us Fabienne Palm MD LAB BLOOD ORDERABLES Coleen l Result Performing Organization Address [facility] Co de Phone Number [facility] [address] [place] [address] * (ABNORMAL) Magnesium, Plasma (08/11/2025 3:30 AM EST) Magnesium, Plasma 1.8(L) 1.9 - 2.4 mg/dL 08/11/2025 4:58 AM EST [facility] Blood Venous blood specimen / Unknown Venipuncture / Unknown 08/11/2025 3:30 AM EST 08/11/2025 4:17 AM EST us Fabienne Palm MD LAB BLOOD ORDERABLES Coleen l Result Performing Organization Address [facility] de Phone Number [facility] [address] [place] [address] * CBC and differential (08/11/2025 3:30 AM EST) WBC Count 8.04 3.70 - 10.30 10*3/uL LAB HEMATOLOGY METHOD 08/11/2025 4:27 AM EST [facility] RBC Count 4.75 4.60 - 6.10 10*6/uL LAB HEMATOLOGY METHOD 08/11/2025 4:27 AM EST [facility] HGB 14.0 13.7 - 17.5 g/dL LAB HEMATOLOGY METHOD 08/11/2025 4:27 AM EST [facility] HCT 40.7 40.0 - 51.0 % LAB HEMATOLOGY METHOD 08/11/2025 4:27 AM EST [facility] Platelet Count 176 155 - 369 10*3/uL LAB HEMATOLOGY METHOD 08/11/2025 4:27 AM EST [facility] MCV 86 79 - 98 fL LAB HEMATOLOGY METHOD 08/11/2025 4:27 AM EST [facility] MCH 29.5 26.0 - 32.0 pg LAB HEMATOLOGY METHOD 08/11/2025 4:27 AM EST [facility] MCHC 34.4 30.7 - 35.5 g/dL LAB HEMATOLOGY METHOD 08/11/2025 4:27 AM EST [facility] RDW 11.6 11.5 - 14.5 % LAB HEMATOLOGY METHOD 08/11/2025 4:27 AM EST [facility] MPV 12.5 8.8 - 12.5 fL LAB HEMATOLOGY METHOD 08/11/2025 4:27 AM EST [facility] nRBC 0.0 <=0.0 per 100 WBCs LAB HEMATOLOGY METHOD 08/11/2025 4:27 AM [facility] Differential Type Automated LAB HEMATOLOGY METHOD 08/11/2025 4:27 AM EST [facility] Neutrophils % 69 % LAB HEMATOLOGY METHOD 08/11/2025 4:27 AM EST [facility] Lymphocytes % 15 % LAB HEMATOLOGY METHOD 08/11/2025 4:27 AM EST [facility] Monocytes % 10 % LAB HEMATOLOGY METHOD 08/11/2025 4:27 AM [facility] Eosinophils % 4 % LAB HEMATOLOGY METHOD 08/11/2025 4:27 AM [facility] Basophils % 1 % LAB HEMATOLOGY METHOD 08/11/2025 4:27 AM [facility] Immature Granulocytes % 1 % LAB HEMATOLOGY METHOD 08/11/2025 4:27 AM EST [facility] Neutrophils Absolute 5.60 1.60 - 6.10 10*3/uL LAB HEMATOLOGY METHOD 08/11/2025 4:27 AM EST [facility] Lymphocytes Absolute 1.22 1.20 - 3.90 10*3/uL LAB HEMATOLOGY METHOD 08/11/2025 4:27 AM EST [facility] Monocytes Absolute 0.84 0.30 - 0.90 10*3/uL LAB HEMATOLOGY METHOD 08/11/2025 4:27 AM EST [facility] Eosinophils Absolute 0.29 0.00 - 0.50 10*3/uL LAB HEMATOLOGY METHOD 08/11/2025 4:27 AM EST [facility] Basophils Absolute 0.05 0.00 - 0.10 10*3/uL LAB HEMATOLOGY METHOD 08/11/2025 4:27 AM EST [facility] Immature Granulocytes Absolute 0.04 0.00 - 0.06 10*3/uL LAB HEMATOLOGY METHOD 08/11/2025 4:27 AM EST [facility] Blood Venous blood specimen / Unknown Venipuncture / Unknown 08/11/2025 3:30 AM EST 08/11/2025 4:19 AM EST Narrative [facility] - 08/11/2025 4:27 AM EST Therapeutic decision making should be based on absolute values, rather than percentages. us Uche Fonseca MD LAB BLOOD ORDERABLES Final Re sult [facility] [address] [place] [address] * (ABNORMAL) Basic metabolic panel (08/11/2025 3:30 AM EST) Glucose, Plasma 205(H) 74 - 99 mg/dL 08/11/2025 4:58 AM EST [facility] BUN, Plasma 19 7 - 21 mg/dL 08/11/2025 4:58 AM EST [facility] Creatinine, Plasma 1.03 0.70 - 1.20 mg/dL 08/11/2025 4:58 AM EST [facility] BUN/Creatinine Ratio 18 08/11/2025 4:58 AM EST [facility] Sodium, Plasma 134(L) 136 - 145 mmol/L 08/11/2025 4:58 AM EST [facility] Potassium, Plasma 4.1 3.6 - 4.9 mmol/L 08/11/2025 4:58 AM EST [facility] Chloride, Plasma 100 97 - 107 mmol/L 08/11/2025 4:58 AM EST [facility] CO2, Plasma 22 22 - 29 mmol/L 08/11/2025 4:58 AM EST [facility] Anion Gap 12 6 - 16 mmol/L 08/11/2025 4:58 AM EST [facility] Total Calcium, Plasma 9.5 8.9 - 10.2 mg/dL 08/11/2025 4:58 AM EST [facility] eGFRcr 83.7 mL/min/1.7 3m*2 08/11/2025 4:58 AM EST [facility] Comment:Reported eGFRcr in m L/min/1.73m2 is based the CKD-EPI 2020 equation that does not use a race coefficient. Blood Venous blood specimen / Unknown Venipuncture / Unknown 08/11/2025 3:30 AM EST 08/11/2025 4:17 AM EST Uche Fonseca MD LAB BLOOD ORDERABLES Final Re sult Performing Organization Address City/[facility] Co de Phone Number [facility] [address] [place] [address] * (ABNORMAL) POCT glucose meter (08/10/2025 7:27 PM EST) [facility] POCT Glucose 215(H) 74 - 99 mg/dL 08/10/2025 7:33 PM EST [facility] Comment:Accuracy of a glucos e result [...] for testing. Comment 08/10/2025 7:33 PM EST [facility] Etl Data Architect ID [employer] 08/10/2025 7:33 PM EST [facility] Device ID [id number] 08/10/2025 7:33 PM EST [facility] Specimen Type POC Capillary 08/10/2025 7:33 PM EST [facility] Blood Capillary blood specimen / Unknown 08/10/2025 7:27 PM EST 08/10/2025 7:33 PM EST Uche Fonseca MD LAB POINT OF CARE TE ST DOCKED DEVICE UNSOLICITED RESULTS Final Result Performing Organization Address City/[facility]/ZIP Co de Phone Number [facility] [address] [place] [address] * (ABNORMAL) POCT glucose meter (08/10/2025 4:15 PM EST) Pathologist [facility] POCT Glucose 237(H) 74 - 99 mg/dL [...] 08/10/2025 4:18 PM EST [facility] Etl Data Architect ID Chapin Steve 08/10/2025 4:18 PM EST [facility] Device ID [id number] 08/10/2025 4:18 PM EST [facility] Specimen Type POC Capillary 08/10/2025 4:18 PM EST [facility] Blood Capillary blood specimen / Unknown 08/10/2025 4:15 PM EST 08/10/2025 4:18 PM EST Uche Fonseca MD LAB POINT OF CARE TE ST DOCKED DEVICE UNSOLICITED RESULTS Final Result Performing Organization Address City/State/[facility] Co de Phone Number [facility] [address] [place] [address] * (ABNORMAL) POCT glucose meter (08/10/2025 11:13 AM EST) [facility] POCT Glucose 323(H) 74 - 99 [...] for testing. Comment 08/10/2025 11:18 AM EST [facility] Etl Data Architect ID Franki Alba Arriola 08/10/2025 11:18 AM EST [facility] Device ID [id number] 08/10/2025 11:18 AM EST [facility] Specimen Type POC Capillary 08/10/2025 11:18 AM EST [facility] Blood Capillary blood specimen / Unknown 08/10/2025 11:13 AM EST 08/10/2025 11:18 AM EST Uche Fonseca MD LAB POINT OF CARE TE ST DOCKED DEVICE UNSOLICITED RESULTS Final Result Performing Organization Address [facility] de Phone Number [facility] [address] [place] [address] * (ABNORMAL) POCT glucose meter (08/10/2025 7:34 AM EST) Pathologist [facility] POCT Glucose 176(H) 74 - 99 mg/dL 08/10/2025 7:39 AM EST [facility] Comment:Accuracy of a glucos e result [...] for testing. Comment 08/10/2025 7:39 AM EST [facility] Etl Data Architect ID Alba Doan 08/10/2025 7:39 AM EST [facility] Device ID [id number] 08/10/2025 7:39 AM EST [facility] Specimen Type POC Capillary 08/10/2025 7:39 AM EST [facility] Blood Capillary blood specimen / Unknown 08/10/2025 7:34 AM EST 08/10/2025 7:39 AM EST Uche Fonseca MD LAB POINT OF CARE TE ST DOCKED DEVICE UNSOLICITED RESULTS Final Result Performing Organization Address City/[facility] Co de Phone Number [facility] [address] [place] [address] * (ABNORMAL) C-reactive protein (08/10/2025 3:22 AM EST) Pathologist [facility] CRP, Plasma 52.4(H) <=8.0 mg/L 08/11/2025 3:21 AM EST [facility] Blood Venous blood specimen / Unknown Venipuncture / Unknown 08/10/2025 3:22 AM EST 08/10/2025 3:29 AM EST Narrative [facility] - 08/11/2025 3:21 AM EST This CRP test is appropriate for assessment of infection, systemic inflammation and/or tissue injury. To assess cardiovascular disease risk order high sensitivity CRP (CRPH). Uche Fonseca MD LAB BLOOD ORDERABLES Final Re sult Performing Organization Address [facility] Co de Phone Number [facility] [address] [place] [address] * Vitamin D 25 Hydroxy (08/10/2025 3:22 AM EST) Vitamin D 25 Hydroxy 78.2 20.0 - 80.0 ng/mL 08/10/2025 8:08 AM EST [facility] Blood Venous blood specimen / Unknown Venipuncture / Unknown 08/10/2025 3:22 AM EST 08/10/2025 3:29 AM EST Narrative [facility] - 08/10/2025 8:08 AM EST Testing performed on [employer], standardized against NIST SRM [id number]. When testing [...] ORDERABLES Coleen l Result Performing Organization Address City/[facility] Co de Phone Number [facility] [address] [place] [address] * Phosphorus, Plasma (08/10/2025 3:22 AM EST) Phosphorus, Plasma 3.4 2.5 - 4.5 mg/dL 08/10/2025 3:55 AM EST [facility] Blood Venous blood specimen / Unknown Venipuncture / Unknown 08/10/2025 3:22 AM EST 08/10/2025 3:29 AM EST us Fabienne Palm MD LAB BLOOD ORDERABLES Coleen l Result Performing Organization Address City/[facility]/ZIP Co de Phone Number [facility] [address] [place] [address] * Magnesium, Plasma (08/10/2025 3:22 AM EST) [facility] Magnesium, Plasma 1.9 1.9 - 2.4 mg/dL 08/10/2025 3:55 AM EST [facility] Blood Venous blood specimen / Unknown Venipuncture / Unknown 08/10/2025 3:22 AM EST 08/10/2025 3:29 AM EST us Fabienne Palm MD LAB BLOOD ORDERABLES Coleen l Result Performing Organization Address [facility] [place] [address] * (ABNORMAL) POCT glucose meter (08/10/2025 3:13 AM EST) [facility] POCT Glucose 173(H) 74 - 99 mg/dL 08/10/2025 3:15 AM EST [facility] Comment:Accuracy of a glucos e result [...] for testing. Comment 08/10/2025 3:15 AM EST [facility] Etl Data Architect ID Yobany Carr 08/10/2025 3:15 AM EST [facility] Device ID [id number] 08/10/2025 3:15 AM EST [facility] Specimen Type POC Capillary 08/10/2025 3:15 AM EST [facility] Blood Capillary blood specimen / Unknown 08/10/2025 3:13 AM EST 08/10/2025 3:15 AM EST Result Harvey Palm MD LAB POINT OF CARE TEST DOCKED DEVICE UNSOLICITED RESULTS Final Result Performing Organization Address City/[facility]/ZIP Co de Phone Number [facility] [address] [place] [address] * (ABNORMAL) POCT glucose meter (08/09/2025 9:11 PM EST) [facility] POCT Glucose 251(H) 74 - 99 [...] 08/09/2025 9:12 PM EST [facility] Etl Data Architect ID Yobany Carr 08/09/2025 9:12 PM EST [facility] Device ID [id number] 08/09/2025 9:12 PM EST [facility] Specimen Type POC Capillary 08/09/2025 9:12 PM EST [facility] Blood Capillary blood specimen / Unknown 08/09/2025 9:11 PM EST 08/09/2025 9:12 PM EST Fabienne Palm MD LAB POINT OF CARE TEST DOCKED DEVICE UNSOLICITED RESULTS Final Result [facility] [address] [place] [address] * (ABNORMAL) POCT glucose meter (08/09/2025 5:01 PM EST) [facility] POCT Glucose 272(H) 74 - 99 mg/dL 08/09/2025 5:03 PM EST [facility] Comment:Accuracy of [...] for testing. Comment 08/09/2025 5:03 PM EST [facility] Etl Data Architect ID Winnie Stringer 08/09/2025 5:03 PM EST [facility] Device ID [id number] 08/09/2025 5:03 PM EST [facility] Specimen Type POC Capillary 08/09/2025 5:03 PM EST [facility] Blood Capillary blood specimen / Unknown 08/09/2025 5:01 PM EST 08/09/2025 5:03 PM EST Fabienne Palm MD LAB POINT OF CARE TEST DOCKED DEVICE UNSOLICITED RESULTS Final Result Performing Organization Address City/[facility]/ZIP Co de Phone Number [facility] [address] [place] [address] * Vancomycin, Peak, Plasma Please draw ~2 hours after 0900 08/09 dose of vancomycin finishes infusing. Consider obtaining level via peripheral stick. If peripheral stick is not feasible, please ensure that line is flushed well prior to drawing level... (08/09/2025 12:49 PM EST) Vancomycin, Peak, Plasma 20.0 20.0 - 40.0 ug/mL 08/09/2025 1:46 PM EST [facility] Blood Venous blood specimen / Unknown Venipuncture / Unknown 08/09/2025 12:49 PM EST 08/09/2025 1:11 PM EST Narrative [facility] [facility] - 08/09/2025 1:46 PM EST Therapeutic Peak level: 20-40ug/mL Supra-therapeutic Peak level: >40 ug/mL us Oriana Castelan MD LAB BLOOD ORDERABLES Final R esult Performing Organization Address City/[facility]/ZIP Co de Phone Number [facility] [address] [place] [id number] * (ABNORMAL) POCT glucose meter (08/09/2025 11:54 AM EST) POCT Glucose 395(H) 74 - 99 mg/dL 08/09/2025 11:56 AM EST [facility] Comment:Accuracy of a glucos e result [...] for testing. Comment 08/09/2025 11:56 AM EST [facility] Etl Data Architect ID Winnie Stringer 08/09/2025 11:56 AM EST [facility] Device ID [id number] 08/09/2025 11:56 AM EST [facility] Specimen Type POC Capillary 08/09/2025 11:56 AM EST [facility] Blood Capillary blood specimen / Unknown 08/09/2025 11:54 AM EST 08/09/2025 11:56 AM EST us Fabienne Palm MD LAB POINT OF CARE TEST DOCKED DEVICE UNSOLICITED RESULTS Final Result [facility] [address] [place] [address] * (ABNORMAL) Vancomycin, Trough, Plasma Please draw ~30 minutes prior to dose due at 0830 on 08/09. Please do NOT hold dose awaiting level to return. Consider obtaining level via peripheral stick. If peripheral stick is not feasible, please ensure that line i... (08/09/2025 8:30 AM EST) Vancomycin, Trough, Plasma 8.2(L) 10.0 - 20.0 ug/mL 08/09/2025 10:45 AM EST [facility] Blood Venous blood specimen / Unknown Venipuncture / Unknown 08/09/2025 8:30 AM EST 08/09/2025 10:15 AM EST Narrative [facility] - 08/09/2025 10:45 AM EST Therapeutic Trough level: 10-20ug/mL Supra-therapeutic Trough level: >20 ug/mL us Oriana Castelan MD LAB BLOOD ORDERABLES Final R esult [facility] [address] [place] [address] * (ABNORMAL) POCT glucose meter (08/09/2025 7:38 AM EST) POCT Glucose 245(H) 74 - 99 mg/dL 08/09/2025 7:39 AM EST [facility] Comment:Accuracy of a glucos e result [...] Comment 08/09/2025 7:39 AM EST [facility] Etl Data Architect ID Winnie Stringer 08/09/2025 7:39 AM EST [facility] Device ID [id number] 08/09/2025 7:39 AM EST [facility] Specimen Type POC Capillary 08/09/2025 7:39 AM EST [facility] Blood Capillary blood specimen / Unknown 08/09/2025 7:38 AM EST 08/09/2025 7:39 AM EST us Oriana Castelan MD LAB POINT OF CARE TE ST DOCKED DEVICE UNSOLICITED RESULTS Final Result Performing Organization Address City/State/[facility] de Phone Number [facility] [address] [place] [address] * (ABNORMAL) POCT glucose meter (08/09/2025 3:42 AM EST) [facility] Signature POCT Glucose 232(H) 74 - 99 mg/dL 08/09/2025 3:45 AM EST [facility] Comment:Accuracy of a glucos e result [...] for testing. Comment 08/09/2025 3:45 AM EST [facility] Etl Data Architect ID Janene Bush 3:45 AM EST [facility] Device ID [id number] 08/09/2025 3:45 AM EST [facility] Specimen Type POC Capillary 08/09/2025 3:45 AM EST [facility] Blood Capillary blood specimen / Unknown 08/09/2025 3:42 AM EST 08/09/2025 3:45 AM EST us Oriana Castelan MD LAB POINT OF CARE TE ST DOCKED DEVICE UNSOLICITED RESULTS Final Result Performing Organization Address City/[facility]/ZIP Co de Phone Number [facility] [address] [place] [address] * Phosphorus, Plasma (08/09/2025 2:30 AM EST) Phosphorus, Plasma 3.2 2.5 - 4.5 mg/dL 08/09/2025 3:14 AM EST [facility] Blood Venous blood specimen / Unknown Venipuncture / Unknown 08/09/2025 2:30 AM EST 08/09/2025 2:44 AM EST us aFbienne Palm MD LAB BLOOD ORDERABLES Coleen l Result Performing Organization Address City/[facility]/ZIP Co de Phone Number [facility] [address] [place] [address] * (ABNORMAL) Magnesium, Plasma (08/09/2025 2:30 AM EST) Magnesium, Plasma 1.8(L) 1.9 - 2.4 mg/dL 08/09/2025 3:14 AM EST [facility] Blood Venous blood specimen / Unknown Venipuncture / Unknown 08/09/2025 2:30 AM EST 08/09/2025 2:44 AM EST us Fabienne Palm MD LAB BLOOD ORDERABLES Coleen l Result Performing Organization Address City/[facility]/ZIP Co de Phone Number [facility] [address] [place] [address] * (ABNORMAL) Comprehensive metabolic panel (08/09/2025 2:30 AM EST) Glucose, Plasma 226(H) 74 - 99 mg/dL 08/09/2025 3:14 AM EST [facility] BUN, Plasma 22(H) 7 - 21 mg/dL 08/09/2025 3:14 AM EST [facility] Creatinine, Plasma 1.18 0.70 - 1.20 mg/dL 08/09/2025 3:14 AM EST [facility] BUN/Creatinine Ratio 19 08/09/2025 3:14 AM EST [facility] Sodium, Plasma 133(L) 136 - 145 mmol/L 08/09/2025 3:14 AM [facility] Potassium, Plasma 4.5 3.6 - 4.9 mmol/L 08/09/2025 3:14 AM EST [facility] Chloride, Plasma 99 97 - 107 mmol/L 08/09/2025 3:14 AM [facility] CO2, Plasma 24 22 - 29 mmol/L 08/09/2025 3:14 AM EST [facility] Anion Gap 10 6 - 16 mmol/L 08/09/2025 3:14 AM [facility] Total Calcium, Plasma 9.9 8.9 - 10.2 mg/dL 08/09/2025 3:14 AM [facility] Total Protein 7.1 6.3 - 7.9 g/dL 08/09/2025 3:14 AM [facility] Albumin, Plasma 3.6 3.5 - 5.2 g/dL 08/09/2025 3:14 AM EST [facility] AST, Plasma 29 10 - 50 U/L 08/09/2025 3:14 AM [facility] Comment:Hemolyzed, result ma y be falsely increased. ALT, Plasma 37 10 - 50 U/L 08/09/2025 3:14 AM [facility] Alkaline Phosphatase, Plasma 75 40 - 115 U/L 08/09/2025 3:14 AM [facility] Total Bilirubin, Plasma 0.4 0.2 - 1.1 mg/dL 08/09/2025 3:14 AM EST [facility] eGFRcr 71.1 mL/min/1.7 3m*2 08/09/2025 3:14 AM [facility] Comment:Reported eGFRcr in m L/min/1.73m2 is based the CKD-EPI 2020 equation that does not use a race coefficient. Blood Venous blood specimen / Unknown Venipuncture / Unknown 08/09/2025 2:30 AM EST 08/09/2025 2:44 AM EST Mery TEJEDA LAB BLOOD ORDERABLES F inal Result [facility] [address] [place] [address] * (ABNORMAL) CBC and differential (08/09/2025 2:30 AM EST) WBC Count 8.34 3.70 - 10.30 10*3/uL LAB HEMATOLOGY METHOD 08/09/2025 2:50 AM EST [facility] RBC Count 4.90 4.60 - 6.10 10*6/uL LAB HEMATOLOGY METHOD 08/09/2025 2:50 AM EST [facility] HGB 14.4 13.7 - 17.5 g/dL LAB HEMATOLOGY METHOD 08/09/2025 2:50 AM EST [facility] HCT 43.0 40.0 - 51.0 % LAB HEMATOLOGY METHOD 08/09/2025 2:50 AM EST [facility] Platelet Count 159 155 - 369 10*3/uL LAB HEMATOLOGY METHOD 08/09/2025 2:50 AM EST [facility] MCV 88 79 - 98 fL LAB HEMATOLOGY METHOD 08/09/2025 2:50 AM EST [facility] MCH 29.4 26.0 - 32.0 pg LAB HEMATOLOGY METHOD 08/09/2025 2:50 AM EST [facility] MCHC 33.5 30.7 - 35.5 g/dL LAB HEMATOLOGY METHOD 08/09/2025 2:50 AM EST [facility] RDW 11.7 11.5 - 14.5 % LAB HEMATOLOGY METHOD 08/09/2025 2:50 AM EST [facility] MPV 12.7(H) 8.8 - 12.5 fL LAB HEMATOLOGY METHOD 08/09/2025 2:50 AM EST [facility] nRBC 0.0 <=0.0 per 100 WBCs LAB HEMATOLOGY METHOD 08/09/2025 2:50 AM EST [facility] Differential Type Automated LAB HEMATOLOGY METHOD 08/09/2025 2:50 AM EST [facility] Neutrophils % 72 % LAB HEMATOLOGY METHOD 08/09/2025 2:50 AM EST [facility] Lymphocytes % 13 % LAB HEMATOLOGY METHOD 08/09/2025 2:50 AM EST [facility] Monocytes % 10 % LAB HEMATOLOGY METHOD 08/09/2025 2:50 AM EST [facility] Eosinophils % 3 % LAB HEMATOLOGY METHOD 08/09/2025 2:50 AM EST [facility] Basophils % 1 % LAB HEMATOLOGY METHOD 08/09/2025 2:50 AM EST [facility] Immature Granulocytes % 1 % LAB HEMATOLOGY METHOD 08/09/2025 2:50 AM EST [facility] Neutrophils Absolute 6.04 1.60 - 6.10 10*3/uL LAB HEMATOLOGY METHOD 08/09/2025 2:50 AM EST [facility] Lymphocytes Absolute 1.06(L) 1.20 - 3.90 10*3/uL LAB HEMATOLOGY METHOD 08/09/2025 2:50 AM EST [facility] Monocytes Absolute 0.87 0.30 - 0.90 10*3/uL LAB HEMATOLOGY METHOD 08/09/2025 2:50 AM EST [facility] Eosinophils Absolute 0.28 0.00 - 0.50 10*3/uL LAB HEMATOLOGY METHOD 08/09/2025 2:50 AM EST [facility] Basophils Absolute 0.05 0.00 - 0.10 10*3/uL LAB HEMATOLOGY METHOD 08/09/2025 2:50 AM EST [facility] Immature Granulocytes Absolute 0.04 0.00 - 0.06 10*3/uL LAB HEMATOLOGY METHOD 08/09/2025 2:50 AM EST [facility] Blood Venous blood specimen / Unknown Venipuncture / Unknown 08/09/2025 2:30 AM EST 08/09/2025 2:44 AM EST Narrative [facility] - 08/09/2025 2:50 AM EST Therapeutic decision making should be based on absolute values, rather than percentages. us Mery TEJEDA LAB BLOOD ORDERABLES F inal Result [facility] [address] [place] [address] * (ABNORMAL) C-Reactive Protein, Plasma (08/09/2025 2:30 AM EST) CRP, Plasma 91.2(H) <=8.0 mg/L 08/09/2025 3:14 AM EST [facility] Blood Venous blood specimen / Unknown Venipuncture / Unknown 08/09/2025 2:30 AM EST 08/09/2025 2:44 AM EST Narrative [facility] - 08/09/2025 3:14 AM EST This CRP test is appropriate for assessment of infection, systemic inflammation and/or tissue injury. To assess cardiovascular disease risk order high sensitivity CRP (CRPH). us Mery TEJEDA LAB BLOOD ORDERABLES F inal Result Performing Organization Address [facility] Co de Phone Number [facility] [address] [place] [address] * Vitamin D 1,25 dihydroxy (08/09/2025 2:30 AM EST) VITAMIN D, 1, 25-DIHYDROXY 44.9 19.9 - 79.3 pg/mL 08/12/2025 8:43 AM EST [facility] Blood Venous blood specimen / Unknown Venipuncture / Unknown 08/09/2025 2:30 AM EST 08/09/2025 2:44 AM EST Fabienne Palm MD LAB BLOOD ORDERABLES Coleen l Result Performing Organization Address [facility] [place] [address] * MR Foot Left w and wo [...] multiecho sequences were obtained utilizing T1 and [id number] with and without the administration of intravenous [...] by James Bianchi on 08/09/2025 8:22 AM Mery TEJEDA IMG MRI PROCEDURES Fin al Result * (ABNORMAL) POCT glucose meter (08/08/2025 8:32 PM EST) POCT Glucose 286(H) 74 - 99 mg/dL 08/08/2025 8:34 PM EST [facility] Comment:Accuracy of a glucos e result [...] for testing. Comment 08/08/2025 8:34 PM EST [facility] Etl Data Architect ID Janene Bush 8:34 PM EST [facility] Device ID [id number] 08/08/2025 8:34 PM EST [facility] Specimen Type POC Capillary 08/08/2025 8:34 PM EST [facility] Blood Capillary blood specimen / Unknown 08/08/2025 8:32 PM EST 08/08/2025 8:34 PM EST Oriana Castelan MD LAB POINT OF CARE TE ST DOCKED DEVICE UNSOLICITED RESULTS Final Result Performing Organization Address City/[facility]/ZIP Co de Phone Number [facility] [address] [place] [address] * (ABNORMAL) POCT glucose meter (08/08/2025 4:11 [...] 08/08/2025 4:13 PM EST [facility] Etl Data Architect ID Veronica Red 025 4:13 PM EST [facility] Device ID [id number] 08/08/2025 4:13 PM EST [facility] Specimen Type POC Capillary 08/08/2025 4:13 PM EST [facility] Blood Capillary blood specimen / Unknown 08/08/2025 4:11 PM EST 08/08/2025 4:13 PM EST Oriana Castelan MD LAB POINT OF CARE TE ST DOCKED DEVICE UNSOLICITED RESULTS Final Result [facility] [address] [place] [address] * (ABNORMAL) POCT glucose meter (08/08/2025 11:21 [...] Comment 08/08/2025 11:24 AM EST [facility] Etl Data Architect ID Veronica Red 025 11:24 AM EST [facility] Device ID [id number] 08/08/2025 11:24 AM EST [facility] Specimen Type POC Capillary 08/08/2025 11:24 AM EST [facility] Blood Capillary blood specimen / Unknown 08/08/2025 11:21 AM EST 08/08/2025 11:24 AM EST us Oriana Castelan MD LAB POINT OF CARE TE ST DOCKED DEVICE UNSOLICITED RESULTS Final Result Performing Organization Address City/State/[facility] Co de Phone Number [facility] [address] [place] [address] * (ABNORMAL) POCT glucose meter (08/08/2025 8:07 AM EST) [facility] POCT Glucose 359(H) 74 - 99 mg/dL 08/08/2025 8:08 AM EST [facility] Comment:Accuracy of a glucos e result [...] Comment 08/08/2025 8:08 AM EST [facility] Etl Data Architect ID Veronica Red 025 8:08 AM EST [facility] Device ID [id number] 08/08/2025 8:08 AM EST [facility] Specimen Type POC Capillary 08/08/2025 8:08 AM EST [facility] Blood Capillary blood specimen / Unknown 08/08/2025 8:07 AM EST 08/08/2025 8:08 AM EST us Oriana Castelan MD LAB POINT OF CARE TE ST DOCKED DEVICE UNSOLICITED RESULTS Final Result Performing Organization Address [facility] Co de Phone Number [facility] [address] [place] [address] * (ABNORMAL) POCT glucose meter (08/08/2025 3:48 AM EST) [facility] POCT Glucose 277(H) 74 - 99 [...] for testing. Comment 08/08/2025 3:50 AM EST [facility] Etl Data Architect ID Marilu Hernandez 3:50 AM EST [facility] Device ID [id number] 08/08/2025 3:50 AM EST [facility] Specimen Type POC Capillary 08/08/2025 3:50 AM EST [facility] Blood Capillary blood specimen / Unknown 08/08/2025 3:48 AM EST 08/08/2025 3:50 AM EST Oriana Castelan MD LAB POINT OF CARE TE ST DOCKED DEVICE UNSOLICITED RESULTS Final Result Performing Organization Address [facility] Co de Phone Number [facility] [address] [place] [address] * (ABNORMAL) Basic metabolic panel (08/08/2025 1:15 AM EST) [facility] Glucose, Plasma 268(H) 74 - 99 mg/dL 08/08/2025 1:54 AM EST [facility] BUN, Plasma 27(H) 7 - 21 mg/dL 08/08/2025 1:54 AM EST [facility] Creatinine, Plasma 1.45(H) 0.70 - 1.20 mg/dL 08/08/2025 1:54 AM EST [facility] BUN/Creatinine Ratio 19 08/08/2025 1:54 AM EST [facility] Sodium, Plasma 133(L) 136 - 145 mmol/L 08/08/2025 1:54 AM EST [facility] Potassium, Plasma 4.3 3.6 - 4.9 mmol/L 08/08/2025 1:54 AM EST [facility] Chloride, Plasma 99 97 - 107 mmol/L 08/08/2025 1:54 AM EST [facility] CO2, Plasma 25 22 - 29 mmol/L 08/08/2025 1:54 AM EST [facility] Anion Gap 9 6 - 16 mmol/L 08/08/2025 1:54 AM EST [facility] Total Calcium, Plasma 9.3 8.9 - 10.2 mg/dL 08/08/2025 1:54 AM EST [facility] eGFRcr 55.5 mL/min/1.7 3m*2 08/08/2025 1:54 AM EST [facility] Comment:Reported eGFRcr in m L/min/1.73m2 is based the CKD-EPI 2020 equation that does not use a race coefficient. Blood Venous blood specimen / Unknown Venipuncture / Unknown 08/08/2025 1:15 AM EST 08/08/2025 1:23 AM EST us Mery TEJEDA LAB BLOOD ORDERABLES F inal Result [facility] [address] [place] [address] * (ABNORMAL) CBC and Differential (08/08/2025 1:15 AM EST) WBC Count 9.46 3.70 - 10.30 10*3/uL LAB HEMATOLOGY METHOD 08/08/2025 1:30 AM EST [facility] RBC Count 4.49(L) 4.60 - 6.10 10*6/uL LAB HEMATOLOGY METHOD 08/08/2025 1:30 AM EST [facility] HGB 13.4(L) 13.7 - 17.5 g/dL LAB HEMATOLOGY METHOD 08/08/2025 1:30 AM EST [facility] HCT 39.8(L) 40.0 - 51.0 % LAB HEMATOLOGY METHOD 08/08/2025 1:30 AM EST [facility] Platelet Count 138(L) 155 - 369 10*3/uL LAB HEMATOLOGY METHOD 08/08/2025 1:30 AM EST [facility] MCV 89 79 - 98 fL LAB HEMATOLOGY METHOD 08/08/2025 1:30 AM EST [facility] MCH 29.8 26.0 - 32.0 pg LAB HEMATOLOGY METHOD 08/08/2025 1:30 AM EST [facility] MCHC 33.7 30.7 - 35.5 g/dL LAB HEMATOLOGY METHOD 08/08/2025 1:30 AM EST [facility] RDW 11.7 11.5 - 14.5 % LAB HEMATOLOGY METHOD 08/08/2025 1:30 AM EST [facility] MPV 12.6(H) 8.8 - 12.5 fL LAB HEMATOLOGY METHOD 08/08/2025 1:30 AM [facility] nRBC 0.0 <=0.0 per 100 WBCs LAB HEMATOLOGY METHOD 08/08/2025 1:30 AM [facility] Differential Type Automated LAB HEMATOLOGY METHOD 08/08/2025 1:30 AM [facility] Neutrophils % 79 % LAB HEMATOLOGY METHOD 08/08/2025 1:30 AM [facility] Lymphocytes % 9 % LAB HEMATOLOGY METHOD 08/08/2025 1:30 AM [facility] Monocytes % 10 % LAB HEMATOLOGY METHOD 08/08/2025 1:30 AM [facility] Eosinophils % 2 % LAB HEMATOLOGY METHOD 08/08/2025 1:30 AM [facility] Basophils % 0 % LAB HEMATOLOGY METHOD 08/08/2025 1:30 AM EST [facility] Immature Granulocytes % 0 % LAB HEMATOLOGY METHOD 08/08/2025 1:30 AM [facility] Neutrophils Absolute 7.42(H) 1.60 - 6.10 10*3/uL LAB HEMATOLOGY METHOD 08/08/2025 1:30 AM EST [facility] Lymphocytes Absolute 0.80(L) 1.20 - 3.90 10*3/uL LAB HEMATOLOGY METHOD 08/08/2025 1:30 AM [facility] Monocytes Absolute 0.96(H) 0.30 - 0.90 10*3/uL LAB HEMATOLOGY METHOD 08/08/2025 1:30 AM EST [facility] Eosinophils Absolute 0.21 0.00 - 0.50 10*3/uL LAB HEMATOLOGY METHOD 08/08/2025 1:30 AM EST [facility] Basophils Absolute 0.04 0.00 - 0.10 10*3/uL LAB HEMATOLOGY METHOD 08/08/2025 1:30 AM EST [facility] Immature Granulocytes Absolute 0.03 0.00 - 0.06 10*3/uL LAB HEMATOLOGY METHOD 08/08/2025 1:30 AM EST [facility] Blood Venous blood specimen / Unknown Venipuncture / Unknown 08/08/2025 1:15 AM EST 08/08/2025 1:23 AM EST Narrative [facility] - 08/08/2025 1:30 AM EST Therapeutic decision making should be based on absolute values, rather than percentages. us Mery TEJEDA LAB BLOOD ORDERABLES F inal Result [facility] [address] [place] [address] * (ABNORMAL) POCT glucose meter (08/07/2025 8:55 PM EST) POCT Glucose 305(H) 74 - 99 mg/dL 08/07/2025 8:56 PM EST [facility] Comment:Accuracy of a glucos e result [...] for testing. Comment 08/07/2025 8:56 PM EST [facility] Etl Data Architect ID Marilu Hernandez 8:56 PM EST [facility] Device ID [id number] 08/07/2025 8:56 PM EST [facility] Specimen Type POC Capillary 08/07/2025 8:56 PM EST [facility] Blood Capillary blood specimen / Unknown 08/07/2025 8:55 PM EST 08/07/2025 8:56 PM EST us Oriana Castelan MD LAB POINT OF CARE TE ST DOCKED DEVICE UNSOLICITED RESULTS Final Result Performing Organization Address [facility] Co de Phone Number [facility] [address] [place] [address] * (ABNORMAL) POCT glucose meter (08/07/2025 4:34 [...] for testing. Comment 08/07/2025 4:37 PM EST [facility] Etl Data Architect ID Avani Alicia 4:37 PM EST [facility] Device ID [id number] 08/07/2025 4:37 PM EST [facility] Specimen Type POC Capillary 08/07/2025 4:37 PM EST [facility] Blood Capillary blood specimen / Unknown 08/07/2025 4:34 PM EST 08/07/2025 4:37 PM EST us Oriana Castelan MD LAB POINT OF CARE TE ST DOCKED DEVICE UNSOLICITED RESULTS Final Result Performing Organization Address [facility] Co de Phone Number [facility] [address] [place] [address] * Blood Culture (Aerobic/Anaerobet Set) (08/07/2025 7:16 AM EST) Culture No growth at day 5 08/12/2025 9:01 AM EST [facility] Blood Structure of part of right upper limb / Unknown Venipuncture / Unknown 08/07/2025 7:16 AM EST 08/07/2025 8:30 AM EST Narrative [facility] - 08/12/2025 9:01 AM EST Low blood volume submitted, results may be compromised us Luis Cody MD LAB MICROBIOLOGY - GENERAL ANITA PICHARDO Final Result Performing Organization Address City/[facility]/ZIP Co de Phone Number [facility] [address] [place] [address] * (ABNORMAL) Hemoglobin A1c (08/07/2025 6:42 AM EST) Hemoglobin A1c 9.5(H) <5.7 % 08/07/2025 3:41 PM EST [facility] Blood Venous blood specimen / Unknown Venipuncture / Unknown 08/07/2025 6:42 AM EST 08/07/2025 7:06 AM EST Narrative [facility] - 08/07/2025 3:41 PM EST HA1C Interpretive Data: Diagnosis of Diabetes: Diabetic > or = 6.5% Pre-diabetic 5.7 to 6.4% Non-diabetic < or = 5.6% Glycemic Targets for Type I and Type II Diabetics: Non- Adults <7.0% Adults <6.0% Children and Adolescents <7.5% Source: [employer]. Standards of medical care in diabetes,2017. Diabetes Care.2017:40 (suppl 1):S1-S135. us Mery TEJEDA LAB BLOOD ORDERABLES F inal Result Performing Organization Address [facility] Co de Phone Number [facility] [address] [place] [address] * ED HIV 1/2 Antibody/Antigen Screen w/Reflex to HIV 1/2 Differentiation (08/07/2025 6:42 AM EST) HIV 1 & 2 Antibody/Antigen Screen Non Reactive Non Reactive 08/07/2025 7:42 AM EST [facility] Comment:Screening for HIV 1 & 2 antibodies, and P24 antigen is NONREACTIVE. No confirmatory testing is required. Blood Venous blood specimen / Unknown Venipuncture / Unknown 08/07/2025 6:42 AM EST 08/07/2025 7:03 AM EST us Luis Cody MD LAB BLOOD ORDERABLES Final Resu lt Performing Organization Address City/[facility]/ZIP Co de Phone Number [facility] [address] [place] [address] * Hepatitis C Antibody - ED (08/07/2025 6:42 AM EST) Hepatitis C Antibody Negative Negative 08/07/2025 7:43 AM EST [facility] Blood Venous blood specimen / Unknown Venipuncture / Unknown 08/07/2025 6:42 AM EST 08/07/2025 7:03 AM EST us Luis Cody MD LAB BLOOD ORDERABLES Final Resu lt Performing Organization Address City/[facility] Co de Phone Number [facility] [address] [place] [address] * (ABNORMAL) Sed rate, automated (08/07/2025 6:42 AM EST) Pathologist [facility] Sedimentation Rate 28(H) <20 mm/hr 2024 7:44 AM EST [facility] Blood Venous blood specimen / Unknown Venipuncture / Unknown 08/07/2025 6:42 AM EST 08/07/2025 7:06 AM EST Result Harvey Cody MD LAB BLOOD ORDERABLES Final Resu lt Performing Organization Address [facility] Phone Number [facility] [address] [place] [address] * (ABNORMAL) C-Reactive protein (08/07/2025 6:42 AM EST) Pathologist [facility] CRP, Plasma 178.0(H) <=8.0 mg/L 08/07/2025 7:29 AM EST [facility] Blood Venous blood specimen / Unknown Venipuncture / Unknown 08/07/2025 6:42 AM EST 08/07/2025 7:06 AM EST Narrative [facility] - 08/07/2025 7:29 AM EST This CRP test is appropriate for assessment of infection, systemic inflammation and/or tissue injury. To assess cardiovascular disease risk order high sensitivity CRP (CRPH). us Luis Cody MD LAB BLOOD ORDERABLES Final Resu lt Performing Organization Address City/[facility] Co de Phone Number [facility] [address] [place] [address] * Lactic acid, venous (08/07/2025 6:42 AM EST) Lactate, Venous, Whole Blood 1.0 0.5 - 2.2 mmol/L LAB HEMATOLOGY METHOD 08/07/2025 6:54 AM EST [facility] Blood Venous blood specimen / Unknown Venipuncture / Unknown 08/07/2025 6:42 AM EST 08/07/2025 6:53 AM EST us Luis Cody MD LAB BLOOD ORDERABLES Final Resu lt Performing Organization Address City/[facility]/ZIP Co de Phone Number [facility] [address] [place] [address] * Type and screen (08/07/2025 6:42 AM [...] LAB BLOOD BANK TEST ORDERABLES Final Result BLOOD BANK [address] [place] [address], * Blood Culture (Aerobic/Anaerobet Set) (08/07/2025 6:42 AM EST) Culture No growth at day 5 08/12/2025 8:01 AM EST [facility] Blood Venous blood specimen / Unknown Venipuncture / Unknown 08/07/2025 6:42 AM EST 08/07/2025 7:38 AM EST us Luis Cody MD LAB MICROBIOLOGY - GENERAL ANITA PICHARDO Final Result [facility] [address] [place] [address] * (ABNORMAL) CMP (08/07/2025 6:42 AM EST) Glucose, Plasma 248(H) 74 - 99 mg/dL 08/07/2025 7:29 AM EST [facility] BUN, Plasma 17 7 - 21 mg/dL 08/07/2025 7:29 AM EST [facility] Creatinine, Plasma 1.04 0.70 - 1.20 mg/dL 08/07/2025 7:29 AM EST [facility] BUN/Creatinine Ratio 16 08/07/2025 7:29 AM EST [facility] Sodium, Plasma 131(L) 136 - 145 mmol/L 08/07/2025 7:29 AM EST [facility] Potassium, Plasma 4.3 3.6 - 4.9 mmol/L 08/07/2025 7:29 AM EST [facility] Chloride, Plasma 98 97 - 107 mmol/L 08/07/2025 7:29 AM EST [facility] CO2, Plasma 23 22 - 29 mmol/L 08/07/2025 7:29 AM EST [facility] Anion Gap 10 6 - 16 mmol/L 08/07/2025 7:29 AM EST [facility] Total Calcium, Plasma 10.0 8.9 - 10.2 mg/dL 08/07/2025 7:29 AM EST [facility] Total Protein 7.0 6.3 - 7.9 g/dL 08/07/2025 7:29 AM EST [facility] Albumin, Plasma 3.8 3.5 - 5.2 g/dL 08/07/2025 7:29 AM EST [facility] AST, Plasma 20 10 - 50 U/L 08/07/2025 7:29 AM EST [facility] ALT, Plasma 34 10 - 50 U/L 08/07/2025 7:29 AM EST [facility] Alkaline Phosphatase, Plasma 75 40 - 115 U/L 08/07/2025 7:29 AM EST [facility] Total Bilirubin, Plasma 0.7 0.2 - 1.1 mg/dL 08/07/2025 7:29 AM EST [facility] eGFRcr 82.7 mL/min/1.7 3m*2 08/07/2025 7:29 AM EST [facility] Comment:Reported eGFRcr in m L/min/1.73m2 is based the CKD-EPI 2020 equation that does not use a race coefficient. Blood Venous blood specimen / Unknown Venipuncture / Unknown 08/07/2025 6:42 AM EST 08/07/2025 7:06 AM EST us Luis Cody MD LAB BLOOD ORDERABLES Final Resu lt Performing Organization Address [facility] Co de Phone Number [facility] [address] [place] [address] * (ABNORMAL) PT-INR (08/07/2025 6:42 AM EST) Prothrombin Time 14.7(H) 12.0 - 14.3 sec LAB COAGULATION METHOD 08/07/2025 7:45 AM EST [facility] INR 1.1 0.9 - 1.1 LAB COAGULATION METHOD 08/07/2025 7:45 AM EST [facility] Blood Venous blood specimen / Unknown Venipuncture / Unknown 08/07/2025 6:42 AM EST 08/07/2025 7:02 AM EST Narrative [facility] - 08/07/2025 7:45 AM EST OPTIMAL INR RANGES FOR PATIENT ON ORAL ANTICOAGULANT THERAPY Prevention of venous thromboembolism INR 2.0 to 3.0 In patients with heart disease: Atrial fibrillation INR 2.0 to 3.0 Valvular heart disease INR 2.0 to 3.0 Tissue heart valves INR 2.0 to 3.0 Mechanical prosthetic valves INR 2.5 to 3.5 Prevention of recurrent WI INR 2.5 to 3.5 us Luis Cody MD LAB BLOOD ORDERABLES Final Resu lt Performing Organization Address City/[facility]/ZIP Co de Phone Number [facility] [address] [place] [address] * (ABNORMAL) CBC w/diff (08/07/2025 6:42 AM EST) WBC Count 10.01 3.70 - 10.30 10*3/uL LAB HEMATOLOGY METHOD 08/07/2025 7:22 AM EST [facility] RBC Count 4.81 4.60 - 6.10 10*6/uL LAB HEMATOLOGY METHOD 08/07/2025 7:22 AM [facility] HGB 14.3 13.7 - 17.5 g/dL LAB HEMATOLOGY METHOD 08/07/2025 7:22 AM [facility] HCT 41.2 40.0 - 51.0 % LAB HEMATOLOGY METHOD 08/07/2025 7:22 AM EST [facility] Platelet Count 132(L) 155 - 369 10*3/uL LAB HEMATOLOGY METHOD 08/07/2025 7:22 AM [facility] MCV 86 79 - 98 fL LAB HEMATOLOGY METHOD 08/07/2025 7:22 AM [facility] MCH 29.7 26.0 - 32.0 pg LAB HEMATOLOGY METHOD 08/07/2025 7:22 AM [facility] MCHC 34.7 30.7 - 35.5 g/dL LAB HEMATOLOGY METHOD 08/07/2025 7:22 AM [facility] RDW 11.9 11.5 - 14.5 % LAB HEMATOLOGY METHOD 08/07/2025 7:22 AM [facility] MPV 13.0(H) 8.8 - 12.5 fL LAB HEMATOLOGY METHOD 08/07/2025 7:22 AM [facility] nRBC 0.0 <=0.0 per 100 WBCs LAB HEMATOLOGY METHOD 08/07/2025 7:22 AM [facility] Differential Type Automated LAB HEMATOLOGY METHOD 08/07/2025 7:22 AM [facility] Neutrophils % 74 % LAB HEMATOLOGY METHOD 08/07/2025 7:22 AM [facility] Lymphocytes % 11 % LAB HEMATOLOGY METHOD 08/07/2025 7:22 AM [facility] Monocytes % 13 % LAB HEMATOLOGY METHOD 08/07/2025 7:22 AM [facility] Eosinophils % 1 % LAB HEMATOLOGY METHOD 08/07/2025 7:22 AM [facility] Basophils % 0 % LAB HEMATOLOGY METHOD 08/07/2025 7:22 AM [facility] Immature Granulocytes % 1 % LAB HEMATOLOGY METHOD 08/07/2025 7:22 AM EST [facility] Neutrophils Absolute 7.45(H) 1.60 - 6.10 10*3/uL LAB HEMATOLOGY METHOD 08/07/2025 7:22 AM EST [facility] Lymphocytes Absolute 1.14(L) 1.20 - 3.90 10*3/uL LAB HEMATOLOGY METHOD 08/07/2025 7:22 AM EST [facility] Monocytes Absolute 1.27(H) 0.30 - 0.90 10*3/uL LAB HEMATOLOGY METHOD 08/07/2025 7:22 AM EST [facility] Eosinophils Absolute 0.06 0.00 - 0.50 10*3/uL LAB HEMATOLOGY METHOD 08/07/2025 7:22 AM EST [facility] Basophils Absolute 0.04 0.00 - 0.10 10*3/uL LAB HEMATOLOGY METHOD 08/07/2025 7:22 AM EST [facility] Immature Granulocytes Absolute 0.05 0.00 - 0.06 10*3/uL LAB HEMATOLOGY METHOD 08/07/2025 7:22 AM EST [facility] Blood Venous blood specimen / Unknown Venipuncture / Unknown 08/07/2025 6:42 AM EST 08/07/2025 7:06 AM EST Narrative [facility] - 08/07/2025 7:22 AM EST Therapeutic decision making should be based on absolute values, rather than percentages. us Luis Cody MD LAB BLOOD ORDERABLES Final Resu lt [facility] [address] [place] [address] * EKG now - STAT (adult) (08/07/2025 6:35 AM EST) EKG DIAGNOSIS CLASS Abnormal MUSE ECG Ventricular Rate 72 BPM MUSE ECG Atrial Rate 72 BPM MUSE ECG CA Interval 178 ms MUSE ECG QRSD Interval 90 ms MUSE ECG QT Interval 358 ms MUSE ECG QTC Interval 392 ms MUSE ECG P [place] 31 degrees MUSE ECG R [place] -14 degrees MUSE ECG T Wave [place] 43 degrees MUSE ECG Diagnosis Normal sinus [...] unspecified whether generalized or localized, unspecified site Cellulitis and abscess of toe of left foot documented in this encounter Admitting Diagnoses Diagnosis [...] 8:02 AM EST 150 mg ceFAZolin (Ancef) 1 g in sodium chloride 0.9 % 1,010 mL irrigation Continuous PRN, Starting on Sat08/11/25 at 1059, Until Sat08/11/25 at 1313, Routine New Bag 08/11/2025 12:37 PM EST ceFAZolin (Ancef) injection 2 g 2 g, [...] Given 08/14/2025 8:02 AM EST 5 mg glucagon (human recombinant) injection 1 mg 1 [...] 1455, Until Discontinued, Routine Given 08/16/2025 10: 08 AM EST 25 mg Given 08/15/2025 8:01 AM EST 25 mg Given 08/14/2025 8:02 AM EST 25 mg ibuprofen tablet 400 mg 400 mg, Oral, Every 6 hours PRN, Starting on 08/07/25 at 1329, Until Sat08/16/25 at 1903, Routine, Mild Plus Pain with CPOT DVPRS FLACC PAINAD NPASS NRS Gandhi-Lynch Faces score of 1 or greater OR NIPS score 2 or greater Given 08/14/2025 8:16 PM EST 4 00 mg Given 08/14/2025 10:33 AM EST 400 mg Given 08/12/2025 2:00 PM EST 400 mg insulin glargine-yfgn 100 UNIT/ML injection 20 Units [...] Given 08/11/2025 8:53 PM EST 3 mg multivitamin (Theragran-M) tablet 1 tablet 1 tablet, Oral, Daily, First dose on 08/07/25 at 1455, Until Discontinued, Routine Given 08/16/2025 10:08 AM EST 1 tablet Given 08/15/2025 8:01 AM EST 1 tablet Given 08/14/2025 8:02 AM EST 1 tablet polyethylene glycol (Miralax) packet 17 g 17 g, Oral, Daily, First dose on 08/08/25 at 1215, Until Discontinued, Routine Given 08/16/2025 10:09 AM EST 17 g Given 08/15/2025 8:04 AM EST 17 g Given 08/14/2025 8:02 AM EST 17 g sodium chloride 0.9 % flush 10 mL [...] Until 08/16/25 at 1903, Routine, line care thrombin (recombinant) (Recothrom) topical solution As needed, Starting on Sat08/11/25 at 1256, Until Sat08/11/25 at 1313, Routine Given 08/11/2025 12:56 PM EST 5,000 Units Given 08/11/2025 12:55 PM EST 5,000 Units documented in this encounter Active and Recently [...] Tamara Lou RN)1346 (Given - Provider: Olga Tomlin, ORLIN)211 (Given - Provider: Amisha Velásquez, RN) 0551 (Given - Provider: Amisha Velásquez, ORLIN)1238 (Given - Provider: Marina Madison RN) cholecalciferol (Vitamin D-3) tablet 1,000 Units 1,000 Units, Oral, Daily, First dose on 08/07/25 at 1455, Until Discontinued 0802 (Given - Provider: Matilde Ornelas RN) 0803 (Given - Provider: Meena Chou LPN) 1008 (Given - Provider: Marina Madison RN) docusate sodium (Colace) capsule 250 mg 250 [...] RN)2010 (Given - Provider: Tamara Lou RN) 08 (Given - Provider: Meena Chou LPN)211 (Given - Provider: Amisha Velásquez RN) 1010 (Given - Provider: Marina Madison, ORLIN) insulin lispro (Admelog) 100 units/mL injection - [...] on Sat08/07/25 at 2100, Until Discontinued, Routine 0315 (Not Given - Provider: Gucci Abel RN - Reason: Order parameters not met)2011 (Given - Provider: Tamara Lou RN) 030 (Given - Provider: Tamara Lou RN)2112 (Given - Provider: Amisha Velásquez RN) 035 (Not Given - Provider: Amisha Velásquez [...] fever 1035 (Canceled Entry - Provider: Klarissa Whitehead, ORLIN)2015 (Given - Provider: Tamara Lou RN) dextrose [...] or greater 1033 (Given - Provider: Klarissa Whitehead RN)2015 (Given - Provider: Tamara Lou RN) melatonin tablet 3 mg 3 mg, Oral, Nightly PRN, Starting on 08/07/25 at 1330, Until Sat08/16/25 at 1903, Routine, sleep 2016 (Given - Provider: Tamara Lou RN) sodium [...] documented as of this encounter Care Teams Acute Care Nursing Assistant Relationship Specialty Start Date End Date Iraida Reese APRN [address] [place] [address] PCP - General 08/07/25 documented as of this encounter
--- OUTSIDE RECORDS SUMMARY | 2025-08-11 12:15 | XMS_ITS | Encounter Summary ---
Author Organization Healthcare Address [address] [id number] Care Team Providers Care Shop Laborer Name Role Phone Iraida Reese APRN Primary Care Provider [phone] Reason for Visit * Auth/Cert (Routine) Specialty Diagnoses / Procedures Referred By Darrell lin Referred To Contact Diagnoses Cellulitis and abscess of toe of left foot necrotizing fasciitis of left foot Oriana Castelan MD [address] [place] [phone] Phone: tel: fax: PAV A Inpatient [address] [place] [phone] Referral ID Status Reason Start Date Expiration Date Visits Re quested Visits Authorized [id number] 1 1 Encounter Details Date Type Department Care Team (Late st Contact Info) Description 08/11/2025 12:15 PM EST Anesthesia Event [facility] A OPERATING ROOM [address] [place] [phone] Raymond Villela MD [address] [place] [phone] Vidhya Thompson MD [address] [place] [address] [id number] Anesthesia Record Procedure Summary Procedure Name Responsible [...] 1454 by Marina Madison RN Wound 08/07/25; 2004; Y; Y es; Traumatic; Puncture; Toe (Comment which one) (4th); Left; 08/15/25; 0730; Converged 08/07/252004 by Janie Ma RN 08/15/25 07 by Olga Tomlin RN Peripheral IV Placement [...] any time in the past [address] [facility], were you homeless or living in a assisted (including now)? No 08/09/2025 [facility] Utilities Answer Date Recorded In the past 12 months has th e electric, gas, oil, or water company threatened to shut off services in your home? No 08/09/2025 Sex and Gender Information Value Date Recorded Sex Assigned at Not on file Legal Sex Male 6:50 PM EDT Gender Identity Not on file Sexual Orientation Not on file documented as of this encounter Mental Status * Pressure Support (cm H2O) Answer Entry Date Author 10 08/11/2025 12:31 PM EST Interfac e, Device In * Minute Ventilation Set (L/min) Answer Entry Date Author 0.5 08/11/2025 1:10 PM EST Interface , Device In * Patient Category Range Answer Entry Date Author Adult 08/11/2025 1:10 PM EST Interface , Device In * Assessment Question Answer Entry Date Author Warming Device Forced warm air 08/11/2025 12:52 PM EST Lucia Reed CRNA, DNP O2 Delivery Method LMA 08/11/2025 12:28 PM ES T Lucia Reed CRNA, DNP * iCO2 Answer Entry Date Author 0 08/11/2025 1:10 PM EST Interface , Device In documented in this encounter Miscellaneous Notes * Anesthesia Postprocedure Evaluation - Lucia Reed CRNA, DNP - 08/11/2025 3:11 PM EST Patient: Hi Goode Anesthesia Type: general, regional Vitals Value Taken Time BP 102/60 08/11/25 13:18 Temp 36.5 ??C (97.7 ??F) 08/11/25 13:18 Pulse 65 08/11/25 13:18 Resp 18 [...] and Staff Patient location during procedure: OR DIGITAL IMAGING TECHNICIAN: Lucia Reed CRNA, DNP Performed: DIGITAL IMAGING TECHNICIAN Patient Condition Indications for airway management: anesthesia [...] monitoring: continuous pulse ox, heart rate and cardiac nurse practitioner Block type: popliteal and adductor canal Laterality: [...] portions of the procedure(s) and immediately available [facility] services the entire duration. See resident note for details. * Anesthesia Preprocedure Evaluation - Raymond Villela MD - 08/11/2025 11:49 AM EST Patient: Hi Goode is a 60 y.o. male with body mass index is 27.57 kg/m??. who presents with Cellulitis and abscess of toe of left foot, now for AMPUTATION,TOE (Left) Procedure Information Date/Time: 08/11/25 1200 Procedure: AMPUTATION,TOE (Left: Toes) [facility] Surgeons: Andie Moyer MD [...] ABG No results found for: PHART , XUW3XTN , PO2ART , SO2ART , BEART , HYO4RXO , HCTART , SODIUMART , POTASSIUMART , POCTCL , POCGLU , IONCALART , LACTATE No results found for: PH , PCO2 , PO2 , V4BXJRTU , BASEEXC , HCTSYR , KSYR , CLSYR , GLUSYR , CAION , LACTATE ECHO No echocardiogram results found for the past 12 months PFTs No results found for: WOZ3DQY , WFX4RMTI , HJY3TTM , FVCPRED BP Readings from Last 5 [...] Plan ASA 3 Plan was reviewed with: DIGITAL IMAGING TECHNICIAN Anesthesia technique(s) discussed with the patient/family: general [...] Visit [facility] [address] [place] [address] Bossman Haywood DO [address] [place] [address] 09/30/2025 11:40 AM EST Office Visit [facility] [address] 5th Floor [address], [address] [place] [address] Renea Li, ILEANA [address] [place] [address] documented as of this encounter Procedures Procedure Name Priority Date/Time Associated Diagnosis Comments PB ANESTHESIA PLACEHOLDER Routine 08/11/2025 12:28 PM EST [place] AN ELECTIVE SUPRAGLOTTIC AIRWAY Routine 08/11/2025 12:28 PM EST ANESTHESIA PERIPHERAL IV PLACEMENT Routine 08/11/2025 12:25 PM EST PB POINT OF CARE IMAGING PLACEHOLDER Routine 08/11/2025 12:03 PM EST documented in this encounter Results * [place] AN ELECTIVE SUPRAGLOTTIC AIRWAY, PB ANESTHESIA PLACEHOLDER (08/11/2025 12:28 PM EST) Narrative Lucia Reed CRNA, DNP - 08/11/2025 12:28 PM EST Lucia Reed CRNA, DNP 08/11/2025 12:39 PM Airway Date/Time: 08/11/2025 12:28 PM Reason: elective Airway not difficult General Information and Staff Patient location during procedure: OR DIGITAL IMAGING TECHNICIAN: Lucia Reed CRNA, DNP Performed: DIGITAL IMAGING TECHNICIAN Patient Condition Indications for airway management: anesthesia [...] prep: alcohol Technique: anatomical landmarks Attempts: 1 Raymond Villela MD ANESTHESIA ORDERABLES Final R esult * PB POINT OF CARE IMAGING PLACEHOLDER (08/11/2025 12:03 PM EST) Audelia Condon MD - 08/11/2025 12:03 PM EST Audelia [...] monitoring: continuous pulse ox, heart rate and cardiac nurse practitioner Block type: popliteal and adductor canal Laterality: [...] PM 25 mL - 08/11/2025 12:07:00 PM us Raymond Villela MD ANESTHESIA ORDERABLES Final [...] documented as of this encounter Care Teams Shop Laborer Relationship Specialty Start Date End Date Iraida Reese APRN [address] [place] [address] PCP - General 08/07/25 documented as of this encounter
--- OUTSIDE RECORDS SUMMARY | 2025-08-28 22:07 | XMS_ITS | Encounter Summary ---
Author Organization Healthcare Address [address] [id number] Care Team Providers Care Rigging Supervisor Name Role Phone Iraida Reese APRN Primary Care Provider [phone] aHrriet Bush LPN Unavailable Unavaila ble Reason for Visit * Reason Comments Wound Check Encounter Details Date Type Department Care Team (Late st Contact Info) Description 08/28/2025 10:07 PM EST - 08/29/2025 2:22 AM EST Emergency [facility] Emergency Department [address] [place] [address] Anai Desai MD [address] [place] [address] Infection of superficial incisional surgical site after procedure, initial encounter (Primary Dx); Status post amputation of lesser toe, left (CMS/HCC) Discharge Disposition: Home or Self Care Social [...] any time in the past 12 m [facility], were you homeless or living in a intermediate (including now)? No 08/09/2025 [facility] Utilities Answer Date Recorded In the [...] Sign Reading Time Taken Comments Blood Pressure 148/70 08/29/2025 2:21 AM EST Pulse 78 08/29/2025 2:21 AM EST Temperature 36.6 C (97.8 F) 08/29/2025 2:21 AM EST Respiratory Rate 18 08/29/2025 2:21 AM EST Oxygen Saturation 98% 08/29/2025 2:21 AM EST Inhaled Oxygen Concentration - - Weight - - Height - - Body Mass Index - - documented in this encounter Functional Status * General Emergency Care CPG Interventions Question Answer Date of Assessment Author General Care Management calm environment promoted 08/28/2025 10:39 PM EST Eleno Araya * Acuity/Destination Question Answer Date of Assessment Author Patient Acuity 3 08/28/2025 9:57 PM River Betancourt RN * Vital Signs Question Answer Date of Assessment Author BP Location Right arm 08/28/2025 9:49 PM Reina Little, RN BP Method Automatic 08/28/2025 9:49 PM Reina Little, RN Patient Position Sitting 08/28/2025 9:49 PM Reina Smith, RN * Oxygen Therapy Question Answer Date of Assessment Author SpO2 98 08/29/2025 2:21 AM Eleno Palma Oxygen Therapy None 08/28/2025 9:49 PM Reina Ohara, RN * Airway Question Answer Date of Assessment Author Airway ([facility]) [facility] 08/28/2025 11:22 PM EST Eleno Kelley * Breathing Question Answer Date of Assessment Author Breathing ([facility]) [facility] 08/28/2025 11:22 PM EST Eleno Ayoub * Circulation Question Answer Date of Assessment Author Circulation ([facility]) [facility] 08/28/2025 11:22 PM Eleno Palma * Disability Question Answer Date of Assessment Author Disability ([facility]) [facility] 08/28/2025 11:22 PM Eleno Palma * Restart Vitals Timer Answer Date of Assessment Author Yes 08/29/2025 2:21 AM Kenroy Palma * Calculated C-SSRS Risk Score (Lifetime/Recent) Answer Date of Assessment Author No Risk Indicated 08/29/2025 12:15 AM Eleno Palma * Extremity Injury Question Answer Date of Assessment Author Skin Integrity Redness 08/28/2025 9:49 PM Reina Ohara, RN Body Area Affected Left;Foot 08/28/2025 9:49 PM Reina Little, RN * Learning Assessment Question Answer Date of Assessment Author Education Level College 08/28/2025 10:41 PM EST Eleno Ayoub Factors that Impact Ability to Learn None 08/16 10:41 PM Eleno Palma Cultural Considerations None 08/28/2025 10:41 PM Eleno Palma Adventism Considerations None 08/28/2025 10:41 PM Eleno Palma * Abuse Screen Question Answer Date of Assessment Author Are you or have you been thr eatened or abused physically, emotionally, or sexually by a partner, spouse, or family member? No 08/28/2025 10:32 PM Eleno Palma * VAN 1 Fall Risk Factor Assessment Question Answer Date of Assessment Author Presented to ED because of fall 0 11:22 PM Eleno Palma Age > 70 0 08/28/2025 11:22 PM EST Stephanie oMacielis Intoxicated with alcohol or substance confusion 0 08/28/2025 11:22 PM EST Araya, Eleno Ambulates or transfers with assistive devices or assist 0 08/28/2025 11:22 PM OMAYRA Araya, Eleno Unable to ambulate or transfer 0 08/28/2025 11:22 PM Eleno Palma Nursing judgement 0 08/28/2025 11:22 PM Eleno Palma Fall Risk Score 0 08/28/2025 11:22 PM Eleno Palma * Patient Belongings Placed in Locker Question Answer Date of Assessment Author Belongings at Bedside Retained by joya lin and/or family/legal jewelry sales representative who assumes responsibility 08/29/2025 12:15 AM Eleno Palma * [place] Suicide Severity Rating Scale Question Answer Date of Assessment Author 1. Wish to be (Past 1 Month) No 025 12:15 AM Eleno Palma 2. Non-Specific Active Suici ramsey Thoughts (Past 1 Month) No 08/29/2025 12:15 AM Eleno Palma 6. Suicidal Behavior (Lifetime) No 12:15 AM Maciel Palmais Is patient awake, alert, and able to answer questions appropriately? Yes 08/29/2025 12:15 AM EST Stephanie o Eleno * Vital Signs Question Answer Date of Assessment Author BP 148/70 08/29/2025 2:21 AM EST Araya , Eleno Temp 97.8 08/29/2025 2:21 AM EST Araya , Eleno Temp src Oral 08/29/2025 2:21 AM EST Araya , Eleno Pulse 78 08/29/2025 2:21 AM EST Araya , Eleno Resp 18 08/29/2025 2:21 AM EST Araya , Eleno * Temp (in Celsius) for [place] IV Answer Date of Assessment Author 36.6 08/29/2025 2:21 AM Kenroy Palma * Pain Assessment Question Answer Date of Assessment Author Pain Location Foot 08/29/2025 12:15 AM Eleno Trammell Pain Orientation Left 08/28/2025 10:51 PM Eleno Palma Patient is asleep Yes, assume pain is decreased 08/29/2025 1:10 AM Eleno Palma Pain Type Acute pain 08/28/2025 10:51 PM Eleno Gunter Clinical Progression Not changed 08/29/2025 1:10 AM E Eleno Castellanos Pain Score 1 08/29/2025 12:15 AM Eleno Gunter Pain Assessment 0-10 (Adult DVPRS/Pe ds 0-10) 08/29/2025 1:10 AM Eleno Palma * Patient Belongings Sent Home Question Answer Date of Assessment Author Belongings Sent Home None 08/29/2025 12:15 AM Eleno Palma * Patient Belongings Sent to Safe/Security Question Answer Date of Assessment Author Belongings Sent to Safe/Security None 08/29/20 12:15 AM Eleno Palma * Skin Color/Condition Question Answer Date of Assessment Author Skin Condition/Temp Warm;Dry 08/29/2025 12:15 AM E Eleno Castellanos Skin Pertinent Negatives Intact;Warm;Dry 08/29/2025 12 :15 AM Eleno Palma Skin Color/Condition (WDL) X 08/29/2025 12: 15 AM Eleno Palma * Vitals Timer Question Answer Date of Assessment Author Restart Vitals Timer Yes 08/29/2025 2:21 AM E Eleno Castellanos * Hourly Rounding Question Answer Date of Assessment Author Call Light Hallway 08/29/2025 1:10 AM Eleno Palma Rest/ Sleep No problem identified;Resting 08/29/2025 1:10 AM Eleno Palma Rest/ Sleep Enhancement Care clustered t o minimize awakenings 08/29/2025 1:10 AM Eleno Palma Completed Hourly Rounding Yes 08/29/2025 1:10 AM Eleno Palma Plan of Care Reviewed With Patient 08/29/2025 1:10 AM Eleno Palma * Are you deaf or do you [...] 08/16/2025 2:53 PM Marina Velázquez RN * General Emergency Care CPG Interventions Question Answer Date of Assessment Author General Care Management calm environment promoted 08/28/2025 10:39 PM Eleno Palma * Vital Signs Question Answer Date of Assessment Author BP Location Right arm 08/28/2025 9:49 PM Reina Little RN BP Method Automatic 08/28/2025 9:49 PM Reina Little, RN Patient Position Sitting 08/28/2025 9:49 PM Reina Smith, ORLIN * Oxygen Therapy Question Answer Date of Assessment Author SpO2 98 08/29/2025 2:21 AM Eleno Palma Oxygen Therapy None 08/28/2025 9:49 PM Reina Ohara, ORLIN * Restart Vitals Timer Answer Date of Assessment Author Yes 08/29/2025 2:21 AM Kenroy Palma * Calculated C-SSRS Risk Score (Lifetime/Recent) Answer Date of Assessment Author No Risk Indicated 08/29/2025 12:15 AM Eleno Palma * Extremity Injury Question Answer Date of Assessment Author Skin Integrity Redness 08/28/2025 9:49 PM Reina Ohara, ORLIN * Learning Assessment Question Answer Date of Assessment Author Education Level College 08/28/2025 10:41 PM Eleno Naik Factors that Impact Ability to Learn None 08/16 10:41 PM Eleno Palma Cultural Considerations None 08/28/2025 10:41 PM Eleno Palma Adventism Considerations None 08/28/2025 10:41 PM Eleno Palma * KINDER 1 Fall Risk Factor Assessment Question Answer Date of Assessment Author Presented to ED because of fall 0 11:22 PM Eleno Palma Age > 70 0 08/28/2025 11:22 PM OMAYRA Brown o, Eleno Intoxicated with alcohol or substance confusion 0 08/28/2025 11:22 PM Eleno Palma Ambulates or transfers with assistive devices or assist 0 08/28/2025 11:22 PM OMAYRA Araya, Eleno Unable to ambulate or transfer 0 08/28/2025 11:22 PM Eleno Palma Nursing judgement 0 08/28/2025 11:22 PM Eleno Palma 1 Fall Risk Score 0 08/28/2025 11:22 PM Eleno Palma * Patient Belongings Placed in Locker Question Answer Date of Assessment Author Belongings at Bedside Retained by patien t and/or family/legal jewelry sales representative who assumes responsibility 08/29/2025 12:15 AM Eleno Palma * [place] Suicide Severity Rating Scale Question Answer Date of Assessment Author 1. Wish to be (Past 1 Month) No 025 12:15 AM Eleno Palma 2. Non-Specific Active Suici ramsey Thoughts (Past 1 Month) No 08/29/2025 12:15 AM Eleno Palma 6. Suicidal Behavior (Lifetime) No 12:15 AM Eleno Palma * Vital Signs Question Answer Date of Assessment Author BP 148/70 08/29/2025 2:21 AM Eleno Palma Temp 97.8 08/29/2025 2:21 AM Eleno Palma Temp src Oral 08/29/2025 2:21 AM Eleno Palma Pulse 78 08/29/2025 2:21 AM Eleno Palma Resp 18 08/29/2025 2:21 AM Eleno Palma * Pain Assessment Question Answer Date of Assessment Author Pain Location Foot 08/29/2025 12:15 AM Eleno Trammell Pain Orientation Left 08/28/2025 10:51 PM Eleno Palma Patient is asleep Yes, assume pain is decreased 08/29/2025 1:10 AM Eleno Palma Pain Type Acute pain 08/28/2025 10:51 PM Eleno Gunter Clinical Progression Not changed 08/29/2025 1:10 AM E Eleno Castellanos Pain Score 1 08/29/2025 12:15 AM Eleno Gunter Pain Assessment 0-10 (Adult DVPRS/Pe ds 0-10) 08/29/2025 1:10 AM Eleno Palma * Patient Belongings Sent Home Question Answer Date of Assessment Author Belongings Sent Home None 08/29/2025 12:15 AM Eleno Palma * Patient Belongings Sent to Safe/Security Question Answer Date of Assessment Author Belongings Sent to Safe/Security None 08/29/20 12:15 AM Eleno Palma * Skin Color/Condition Question Answer Date of Assessment Author Skin Condition/Temp Warm;Dry 08/29/2025 12:15 AM E Eleno Castellanos * Hourly Rounding Question Answer Date of Assessment Author Call Light Hallway 08/29/2025 1:10 AM Eleno Palma Rest/ Sleep No problem identified;Resting 08/29/2025 1:10 AM Eleno Palma Rest/ Sleep Enhancement Care clustered t o minimize awakenings 08/29/2025 1:10 AM Eleno Palma Completed Hourly Rounding Yes 08/29/2025 1:10 AM Eleno Palma Plan of Care Reviewed With Patient 08/29/2025 1:10 AM Eleno Palma documented as of this encounter Mental Status * General Emergency Care CPG Interventions Question Answer Entry Date Author General Care Management calm environment promote d 08/28/2025 10:39 PM Eleno Palma * Acuity/Destination Question Answer Entry Date Author Patient Acuity 3 08/28/2025 9:57 PM River Betancourt RN Triage Complete Triage complete 08/28/2025 9:57 PM River Pina RN ED Destination Main 08/28/2025 9:57 PM River Betancourt RN * Vital Signs Question Answer Entry Date Author BP Location Right arm 08/28/2025 9:49 PM EST Reina Pandey RN BP Method Automatic 08/28/2025 9:49 PM Reina Little, RN Patient Position Sitting 08/28/2025 9:49 PM EST Reina Butler, RN * Oxygen Therapy Question Answer Entry Date Author SpO2 98 08/29/2025 2:21 AM Eleno Palma Oxygen Therapy None 08/28/2025 9:49 PM Reina Ohara, RN * Airway Question Answer Entry Date Author Airway ([facility]) [facility] 08/28/2025 11:22 PM EST Eleno Kelley * Breathing Question Answer Entry Date Author Breathing ([facility]) [facility] 08/28/2025 11:22 PM EST R ubioEleno * Circulation Question Answer Entry Date Author Circulation ([facility]) [facility] 08/28/2025 11:22 PM EST Eleno Araya * Disability Question Answer Entry Date Author Disability ([facility]) [facility] 08/28/2025 11:22 PM Eleno Palma * Restart Vitals Timer Answer Entry Date Author Yes 08/29/2025 2:21 AM Kenroy Palma * Calculated C-SSRS Risk Score (Lifetime/Recent) Answer Entry Date Author No Risk Indicated 08/29/2025 12:15 AM Eleno Palma * Departure Condition Question Answer Entry Date Author Mobility at Departure Ambulatory 08/29/2025 2:21 AM Eleno Palma Patient Teaching Discharge instructio ns reviewed;Medications discussed;Patient verbalized understanding 08/29/2025 2:21 AM Eleno Palma * Restart Pain Assessment Timer Answer Entry Date Author Yes 08/29/2025 12:15 AM Amber Palma * Extremity Injury Question Answer Entry Date Author Skin Integrity Redness 08/28/2025 9:49 PM Reina Ohara, RN * KINDER 1 Fall Risk Factor Assessment Question Answer Entry Date Author Presented to ED because of fall 0 11:22 PM Eleno Palma Age > 70 0 08/28/2025 11:22 PM Eleno Gunter Intoxicated with alcohol or substance confusion 0 08/28/2025 11:22 PM Eleno Palma Ambulates or transfers with assistive devices or assist 0 08/28/2025 11:22 PM Eleno Palma Unable to ambulate or transfer 0 08/28/2025 11:22 PM Eleno Palma Nursing judgement 0 08/28/2025 11:22 PM Eleno Palma KINDER 1 Fall Risk Score 0 08/28/2025 11:22 PM Eleno Palma * Patient Belongings Placed in Locker Question Answer Entry Date Author Belongings placed in Locker None 08/29/2025 12:15 AM Eleno Palma Belongings at Bedside Retained by patien t and/or family/legal jewelry sales representative who assumes responsibility 08/29/2025 12:15 AM Eleno Palma * [employer] Information Question Answer Entry Date Author Mode of Arrival Private Vehicle 08/28/2025 9:49 PM Reina Little, RN * [place] Suicide Severity Rating Scale Question Answer Entry Date Author 1. Wish to be (Past 1 Month) No 025 12:15 AM Eleno Palma 2. Non-Specific Active Suici ramsey Thoughts (Past 1 Month) No 08/29/2025 12:15 AM Eleno Palma 6. Suicidal Behavior (Lifetime) No 12:15 AM Eleno Palma Is patient awake, alert, and able to answer questions appropriately? Yes 08/29/2025 12:15 AM Eleno Gunter * Vital Signs Question Answer Entry Date Author BP 148/70 08/29/2025 2:21 AM Eleno Palma Temp 97.8 08/29/2025 2:21 AM Eleno Palma Temp src Oral 08/29/2025 2:21 AM Eleno Palma Pulse 78 08/29/2025 2:21 AM Eleno Palma Resp 18 08/29/2025 2:21 AM Eleno Palma * Temp (in Celsius) for [place] IV Answer Entry Date Author 36.6 08/29/2025 2:21 AM Kenroy Palma * Pain Assessment Question Answer Entry Date Author Pain Location Foot 08/29/2025 12:15 AM Eleno Trammell Pain Orientation Left 08/28/2025 10:51 PM Eleno Palma Patient is asleep Yes, assume pain is decreased 08/29/2025 1:10 AM Eleno Palma Pain Type Acute pain 08/28/2025 10:51 PM Eleno Gunter Clinical Progression Not changed 08/29/2025 1:10 AM E Eleno Castellanos Pain Score 1 08/29/2025 12:15 AM Eleno Gunter Pain Assessment 0-10 (Adult DVPRS/Pe ds 0-10) 08/29/2025 1:10 AM Eleno Palma * Patient Belongings Sent Home Question Answer Entry Date Author Belongings Sent Home None 08/29/2025 12:15 AM Eleno Palma * Patient Belongings Sent to Safe/Security Question Answer Entry Date Author Belongings Sent to Safe/Security None 08/29/20 12:15 AM Eleno Palma * Skin Color/Condition Question Answer Entry Date Author Skin Condition/Temp Warm;Dry 08/29/2025 12:15 AM E Eleno Castellanos * Vitals Timer Question Answer Entry Date Author Restart Vitals Timer Yes 08/29/2025 2:21 AM E Eleno Castellanos * Hourly Rounding Question Answer Entry Date Author Call Light Hallway 08/29/2025 1:10 AM Eleno Palma Rest/ Sleep No problem identified;Resting 08/29/2025 1:10 AM Eleno Palma Rest/ Sleep Enhancement Care clustered t o minimize awakenings 08/29/2025 1:10 AM Eleno Palma Completed Hourly Rounding Yes 2024 1:10 AM Eleno Palma Plan of Care Reviewed With Patient 08/29 1:10 AM Eleno Palma * Because of a physical, mental, or emotional condition, do you have serious difficulty concentrating, remembering, or making decisions? (5 years old or older) Answer Entry Date Author No 08/16/2025 2:53 PM EST Marina Madison RN documented in this encounter Discharge Instructions * Discharge Instructions* Sawyer Zhao MD - 08/29/2025 1:00 AM EST Please go to your follow-up appointment with vascular surgery on 08/31. Discuss that you were recently prescribed antibiotics out of concern for an infection. Please take your antibiotics as prescribed documented in this encounter Medications at Time [...] 11 08/16/2025 lisinopril 10 MG tablet 12/05/2017 lisinopril-hydroC HLOROthiazide 20-12.5 MG tablet Take 2 tablets by [...] hr capsule 12/05/2017 cefadroxil (Duricef) 500 MG capsuleIndication s:Status post amputation of lesser toe, left (CMS/HCC),Infecti on of superficial incisional surgical site after procedure, initial encounter Take 1 capsule by mouth 2 times a day for 5 days. 10 capsule 08/29/2025 documented as of this encounter Miscellaneous Notes * ED Provider Notes - Sawyer Zhao MD - 08/28/2025 9:45 PM EST Images from the original note were not included. - HPI Chief Complaint Patient presents with Wound Check PIT Note Hi Goode is a 60 y.o. male who presents to ED with Wound Check. Pt c/o infection of the L foot. Pt states he had his L 4th toe amputated in July but believes the amputation site may be infected. Pt endorses cleaning the wound and changing the bandages regularly. Pt reports drainage and blood coming from the site today. Patient denies fever, chills, cough, chest pain, shortness of breath, nausea, vomiting, and diarrhea. MAIN ED NOTE//Sawyer Zhao MD: I assumed full responsibility for this patient after transfer to Main ED from [facility]. I personally performed my own history, ROS, and physical. I agree with the above [facility] documentation with the following additions/exceptions: Vascular surgery performed amputation on 08/11. Patient discharged on 08/16. Was initially started on vanc and zosyn for broad coverage, transitioned to meropenem per ID recs. Gram stain and culture from bone grew Staphylococcus aureus, and antibiotics were transitioned to cefazolin; vancomycin and meropenem were discontinued. Prescribed 2 more days of oral Duricef at discharge to complete a totalof 7 days of antibiotics after surgery. Patient reports completing these abx as prescribed. Denies any recent fevers, chills, or other sick symptoms. Patient and noticed some bleeding and a slight increase in his pain, so sent to ED for concerns of infection. History provided by: Patient custodial engineer used: No Patient History Past Medical History[1] Surgical History[2] Family History[3] Social History[4] Allergies: Allergies[5] Physical Exam ED Triage Vitals [08/28/252148] Temp Heart Rate Resp BP 36.8 ??C (98.3 ??F) 85 16 (!) 152/83 SpO2 Temp src Heart Rate Source Patient Position 95 % -- -- Sitting BP Location FiO2 (%) Right arm -- Physical Exam Vitals and nursing note [...] There is no abdominal tenderness. Musculoskeletal: General: No swelling. Cervical back: Neck supple. Skin: General: Skin is warm and dry. Capillary Refill: Capillary refill takes less than 2 seconds. Comments: See image below. Areas of good skin healing, with a pale edge. No signs of necrosis or erythema Neurological: Mental Status: He is alert. Psychiatric: Mood and Affect: Mood normal. No data recorded ED Course & MDM - Assessment: 60 y.o. male presents to ED for a wound check s/p L 4th toe amputation. It should be noted that thechronic conditions includes T2DM, HTN, depression, which currently is not at goal therapy. This complicates the clinical picture because it Comorbidities: may be exacerbating symptoms and increases the amount and complexity of data to be reviewed Differential Diagnosis: Differential diagnosis includes but is not limited to cellulitis, abscess, cyst, lymphadenopathy, reactive lymph node, pyomyositis, necrotizing soft tissue infection, lymphangitis, erysipelas, toxic shock syndrome, and osteomyelitis. In order to fully explore the differential diagnosis the following treatments and tests were ordered: ED Medication Administration from 08/28/20252144 to 08/29/2025 0456 Date/Time Order Dose Route Action 08/28/2025 2238 EST acetaminophen (Tylenol) tablet 1,000 mg 1,000 mg Oral Given All Other Orders Ordered Status Ordering Provider 08/29/256 XR Foot Left 3+ Views Once Final result SAWYER ZHAO 08/28/252156 BMP STAT Final result RAE HINTON 08/28/252156 CBC STAT Final result RAE HINTON 08/28/252156 C-Reactive protein STAT Final result RAE HINTON 08/28/252156 Sed rate, automated STAT Final result RAE HINTON ED Course as of 08/29/25 0513 Sat Aug 28, 20252223 BP(!): 152/83 Patient is hypertensive on arrival. Confirms he took his medication today. Non- actionable at this time [CJ] 2223 Heart Rate: 85 Patient is not tachycardic [CJ] 2223 Temp: 36.8 ??C (98.3 ??F) Afebrile [CJ] 2306 CBC(!) CBC was within normal limits. No actionable leukocytosis or leukopenia, anemia or polycythemia. Normal platelets. No evidence of infection, inflammation, bleeding, or bone marrow suppression. [CJ] 2306 WBC: 7.28 No leukocytosis to suggest infection [CJ] 2306 Sed Rate(!): 42 Elevated ESR, but normal CRP. Could represent underlying inflammation [CJ] 2306 BUN(!): 28 Elevation consistent with prior values. No WU [CJ] 2308 Based on exam, patient's postoperative site does not appear infected. Some areas of non-perfused tissue around the edges, but no purulent drainage or increased redness. Not TTP. [CJ] Kaylan Aug 29, 2025 0015 On attending evaluation, was able to express some moore, thin fluid from the wound. May need POabx to go home with out of abundance of caution [CJ] 0030 XR Foot Left 3+ Views XR of the foot was reviewed by me. No obvious areas of soft tissue swelling. IMPRESSION: Amputation the fourth digit at the mid proximal phalanx. No definite bony erosions or abnormal softtissue findings. [CJ] 0100 I discussed the workup with the patient. We discussed that out of abundance of caution, we'd give him a 5 day course of Cefadroxil (the medication he was discharged with) to cover for any superficial infection he may have. He has a follow up appointment with vascular surgery on Saturday. He wasencouraged to go and discuss this with them, as well as for repeat evaluation [CJ] ED Course User Index [CJ] Sawyer Zhao MD Clinical Impressions as of 08/29/25 0513 Status post amputation of lesser toe, left (CMS/HCC) Infection of superficial incisional surgical site after procedure, initial encounter Social Determinates of Health Risks (including Economic Stability, Education and level of understanding, Healthcare access and quality and concerning social factors): None identified on this visit Ultimately, this patient was Was discharged Home (Discharge) The primary encounter diagnosis was Infection of superficial incisional surgical site after procedure, initial encounter. A diagnosis of Status post amputation of lesser toe, left (CMS/HCC) was also pertinent to this visit. . Patient was counseled on the diagnoses. Discharge medicationsif any are listed below. Listed medications are thought be either curative for listed diagnoses or will help control ongoing symptoms. Patient is requested to follow up with Patient's Primary Care Provider and Vascular in order to obtain routine follow-up. Instructions on follow up as well as precautions to return to the ER provided verbally by the EM provider, as well as written in patients discharge education packet. ED Prescriptions Medication Sig Dispense Start Date End Date Auth. Provider cefadroxil (Duricef) 500 MG capsule Take 1 capsule by mouth 2 times a day for 5 days. 10 capsule 08/29/2025 09/03/2025 Anai Desai MD Discharge Instructions Please go to your follow-up appointment with vascular surgery on 08/31. Discuss that you were recently prescribed antibiotics out of concern for an infection. Please take your antibiotics as prescribed Disposition Discharge Patient meet discharge criteria. Patient given discharge instruction as well as paper work given. Patient advised to return to emergency department for worsening or new symptoms. Patient verbalized understanding and all patient questions answered. Patient aox4 NADN, gcs 15, ambulatory out the department with steady gait. AVS (Hungarian Snapshot) - Printed 08/29/2025 Follow-Ups: Schedule an appointment with Iraida Reese APRN; As needed, for further evaluation and management - PIT Date: 08/28/2025 Scribe Attestation: This note was dictated to me, Ramos Sims, acting as a scribe for Dr. Rae Hinton MD. Attending Attestation: The documentation was recorded by Ramos Sims acting as scribe in my presence at the time of the encounter and accurately reflects the service I personally performed. [1] Past Medical History: Diagnosis Date Essential [...] Never [5] Allergies Allergen Reactions Codeine Itching Sawyer Zhao MD Resident 08/29/25 05 Cosigned by Anai Desai MD at 08/31/2025 11:12 PM EST Associated attestation - Anai Desai MD - 08/31/2025 11:12 PM EST I saw and evaluated the patient with the resident/fellow. I discussed the case with the resident/fellow and agree with the findings and plan as documented. * ED Triage Notes - Reina Pandey RN - 08/28/2025 9:45 PM EST Pt presents with complaints of possible infection on his L foot. Pt stated he was here in July-amputated his a toe on L foot d/t infection. documented in this encounter Plan of Treatment Upcoming Encounters Date Type Department Care Team (Late st Contact Info) Description 09/24/2025 10:40 AM EST Office Visit [facility] [address] [address] Bossman Haywood DO [address] [facility] [address] [place] [address] 09/30/2025 11:40 AM EST Office Visit [facility] [address] [place] [address] Renea Li PA [address] [place] [address] documented as of this encounter Procedures Procedure Name Priority Date/Time Associated Diagnosis Comments XR FOOT LEFT 3+ VIEWS STAT 08/29/2025 1:12 AM EST SEDIMENTATION RATE, AUTOMATED STAT 08/28/2025 10:05 PM EST CBC W/O DIFFERENTIAL STAT 08/28/2025 10:05 PM EST C-REACTIVE PROTEIN, PLASMA STAT 08/28/2025 10:05 PM EST BASIC METABOLIC PANEL, PLASMA STAT 08/28/2025 10:05 PM EST documented in this encounter Results * XR Foot Left 3+ Views (08/29/2025 1:12 AM EST) Anatomical Region Laterality Modality Lower Extremities, Foot Left Computed Radiography Impressions 08/29/2025 1:54 AM EST Amputation the fourth digit at the mid proximal phalanx. No definite bony erosions or abnormal soft tissue findings. CRITICAL RESULT: No. COMMUNICATION: Per this written report. Preliminary report signed by Jo Dodson MD on 08/29/2025 1:23 AM By electronically signing this report, I, the attending physician, attest that I have personally reviewed the images/data for the above examination(s) and agree with the final edited report. Drafted by Jo Dodson MD on 08/29/2025 1:20 AM Final report signed by Nico Navarrete MD on 08/29/2025 1:54 AM Narrative 08/29/2025 1:54 AM EST CLINICAL INDICATION: look for signs of infection s/p amputation TECHNIQUE: XR FOOT LEFT 3+ VIEWS COMPARISON: None. FINDINGS: Amputation of the fourth digit at the mid proximal phalanx. There is mild irregularity of the bone at the incision site without discrete erosions. No significant soft tissue swelling or subcutaneous emphysema at site of amputation. The foot is otherwise without acute osseous or soft tissue finding. Procedure Note Nico Navarrete MD - 08/29/2025 CLINICAL INDICATION: look for signs of infection s/p amputation TECHNIQUE: XR FOOT LEFT 3+ VIEWS COMPARISON: None. FINDINGS: Amputation of the fourth digit at the mid proximal phalanx. There is mildirregularity of the bone at the incision site without discrete erosions.No significant soft tissue swelling or subcutaneous emphysema at site ofamputation. The foot is otherwise without acute osseous or soft tissuefinding. IMPRESSION: Amputation the fourth digit at the mid proximal phalanx. No definite bonyerosions or abnormal soft tissue findings. CRITICAL RESULT: No. COMMUNICATION: Per this written report. Preliminary report signed by Jo Dodson MD on 08/29/2025 1:23 AM By electronically signing this report, I, the attending physician, attestthat I have personally reviewed the images/data for the aboveexamination(s) and agree with the final edited report. Drafted by Jo Dodson MD on 08/29/2025 1:20 AM Final report signed by Nico Navarrete MD on 08/29/2025 1:54 AM us Anai Andrade MD IMG XR PROCEDURES Final Resu lt * (ABNORMAL) Sed rate, automated (08/28/2025 10:05 PM EST) Sedimentation Rate 42(H) <20 mm/hr 2024 10:44 PM EST [facility] Blood Venous blood specimen / Unknown Venipuncture / Unknown 08/28/2025 10:05 PM EST 08/28/2025 10:22 PM EST us Rae Hinton MD LAB BLOOD ORDERABLES Final Res ult [facility] [address] [place] [address] * C-Reactive protein (08/28/2025 10:05 PM EST) Pathologist [facility] CRP, Plasma 7.0 <=8.0 mg/L 08/28/2025 10:53 PM EST [facility] Blood Venous blood specimen / Unknown Venipuncture / Unknown 08/28/2025 10:05 PM EST 08/28/2025 10:22 PM EST Narrative [facility] - 08/28/2025 10:53 PM EST This CRP test is appropriate for assessment of infection, systemic inflammation and/or tissue injury. To assess cardiovascular disease risk order high sensitivity CRP (CRPH). us Rae Hinton MD LAB BLOOD ORDERABLES Final Res ult [facility] [address] [place] [address] * (ABNORMAL) CBC (08/28/2025 10:05 PM EST) Pathologist [facility] WBC Count 7.28 3.70 - 10.30 10*3/uL LAB HEMATOLOGY METHOD 08/28/2025 10:30 PM EST [facility] RBC Count 4.64 4.60 - 6.10 10*6/uL LAB HEMATOLOGY METHOD 08/28/2025 10:30 PM EST [facility] HGB 13.5(L) 13.7 - 17.5 g/dL LAB HEMATOLOGY METHOD 08/28/2025 10:30 PM EST [facility] HCT 40.2 40.0 - 51.0 % LAB HEMATOLOGY METHOD 08/28/2025 10:30 PM EST [facility] Platelet Count 188 155 - 369 10*3/uL LAB HEMATOLOGY METHOD 08/28/2025 10:30 PM EST [facility] MCV 87 79 - 98 fL LAB HEMATOLOGY METHOD 08/28/2025 10:30 PM EST [facility] MCH 29.1 26.0 - 32.0 pg LAB HEMATOLOGY METHOD 08/28/2025 10:30 PM EST [facility] MCHC 33.6 30.7 - 35.5 g/dL LAB HEMATOLOGY METHOD 08/28/2025 10:30 PM EST [facility] RDW 11.9 11.5 - 14.5 % LAB HEMATOLOGY METHOD 08/28/2025 10:30 PM EST [facility] MPV 12.5 8.8 - 12.5 fL LAB HEMATOLOGY METHOD 08/28/2025 10:30 PM EST [facility] nRBC 0.0 <=0.0 per 100 WBCs LAB HEMATOLOGY METHOD 08/28/2025 10:30 PM EST [facility] Blood Venous blood specimen / Unknown Venipuncture / Unknown 08/28/2025 10:05 PM EST 08/28/2025 10:22 PM EST us Rae Hinton MD LAB BLOOD ORDERABLES Final Res ult [facility] [address] [place] [address] * (ABNORMAL) BMP (08/28/2025 10:05 PM EST) Glucose, Plasma 148(H) 74 - 99 mg/dL 08/28/2025 10:53 PM EST [facility] BUN, Plasma 28(H) 7 - 21 mg/dL 08/28/2025 10:53 PM EST [facility] Creatinine, Plasma 1.12 0.70 - 1.20 mg/dL 08/28/2025 10:53 PM EST [facility] BUN/Creatinine Ratio 25 08/28/2025 10:53 PM EST [facility] Sodium, Plasma 140 136 - 145 mmol/L 08/28/2025 10:53 PM EST [facility] Potassium, Plasma 4.1 3.6 - 4.9 mmol/L 08/28/2025 10:53 PM EST [facility] Chloride, Plasma 103 97 - 107 mmol/L 08/28/2025 10:53 PM EST [facility] CO2, Plasma 25 22 - 29 mmol/L 08/28/2025 10:53 PM EST [facility] Anion Gap 12 6 - 16 mmol/L 08/28/2025 10:53 PM EST [facility] Total Calcium, Plasma 10.4(H) 8.9 - 10.2 mg/dL 08/28/2025 10:53 PM EST [facility] eGFRcr 75.7 mL/min/1.7 3m*2 08/28/2025 10:53 PM EST [facility] Comment:Reported eGFRcr in m L/min/1.73m2 is based the CKD-EPI 2020 equation that does not use a race coefficient. Blood Venous blood specimen / Unknown Venipuncture / Unknown 08/28/2025 10:05 PM EST 08/28/2025 10:22 PM EST us Rae Hinton MD LAB BLOOD ORDERABLES Final Res ult [facility] [address] [place] [address] documented in this encounter Visit Diagnoses Diagnosis Infection of superficial incisional surgical site after procedure, initial encounter- Primary Status post amputation of lesser toe, left (CMS/HCC) documented in this encounter Administered Medications Inactive Administered Medications - up to 3 most recent administrations Medication Order MAR Action Action Date Dose Rate Site acetaminophen (Tylenol) tablet 1,000 mg 1,000 mg, Oral, Once, 1 dose, On 08/28/25 at 2235, Routine Given 08/28/2025 10:38 PM EST 1,000 mg documented in this encounter Active and Recently Administered Medications Times are shown in EST. Scheduled Medication Order 08/27/2025 08/28/2025 08/29/2025 acetaminophen (Tylenol) tablet 1,000 mg (COMPLETED) 1,000 mg, Oral, Once, 1 dose, On 08/28/25 at 2235, Routine 2238 (Given - Provider: Maciel Araya) documented in this encounter Additional Health Concerns Assessment Noted Time A Body Mass Index follow-up plan has been documented for the patient 08/16/2025 2:54 PM EST documented as of this encounter Care Teams Rigging Supervisor Relationship Specialty Start Date End Date Iraida Reese APRN [address], [place] [id number] PCP - General 08/07/25 Harriet Bush LPN VALUE-BASED TRANSFORMATION PROGRAM None Registered Nurse 08/17/25 documented as of this encounter
--- OUTSIDE RECORDS SUMMARY | 2025-08-31 11:20 | XMS_ITS | Encounter Summary ---
Author Organization [facility] Address [address] [id number] Care Team Providers Care Manager Acute Name Role Phone Iraida Reese APRN Primary Care Provider Harriet Bush LPN Unavailable Unavaila ble Reason for Referral * Consultation (Routine) - Pending Review Specialty Diagnoses / Procedures Referred By Contac t Referred To Contact Wound Care Diagnoses Complication of toe amputation stump (CMS/HCC) Renea Li PA [address] [facility] [address] [place] [address] Phone: tel: fax: Referral ID Status Reason Start Date Expiration Date V isits Requested Visits Authorized [id number] Pending Review 08/31/2025 03/02/2027 1 1 * Other Medical (Routine) - Pending Review Specialty Diagnoses / Procedures Referred By Contac t Referred To Contact Diagnoses Complication of toe amputation stump (CMS/HCC) Procedures Debridement Renea Li PA [address] [facility] [address] [place] [address] Phone: tel: fax: Referral ID Status Reason Start Date Expiration Date V isits Requested Visits Authorized [id number] Pending Review 08/31/2025 03/02/2027 1 1 * Other Medical (Routine) - Pending Review Specialty Diagnoses / Procedures Referred By Contac t Referred To Contact Diagnoses Complication of toe amputation stump (CMS/HCC) Procedures Debridement Anterior;Left Toe (Comment which one) Surgical Renea Li PA [address] [place] [address] Phone: tel: fax: Referral ID Status Reason Start Date Expiration Date V isits Requested Visits Authorized [id number] Pending Review 08/31/2025 03/02/2027 1 1 * Consultation (Routine) - Pending Review Specialty Diagnoses / Procedures Referred By Contact Referred To Contact Physical Medicine and Rehabilitation Diagnoses Encounter related to worker's compensation claim Renea Li PA [address] [place] [address] Phone: tel:[phone] fax:[phone] [facility] at [facility] [address] [facility] [place] [address] Phone: tel: fax: Referral ID Status Reason Start Date Expiration Date Visits Requested Visits Authorized [id number] Pending Review Specialty Services Required 03/02/2027 1 1 Reason for Visit * Reason Comments Wound Check * Consultation (Routine) - Pending Review Specialty Diagnoses / Procedures Referred By Contact Referred To Contact Vascular [facility] / [facility] Diagnoses Cellulitis and abscess of toe of left foot Andie Moyer MD [address] [address] Phone: tel: fax: Andie Moyer MD [id number] [place] [address] Phone: tel: fax: Referral ID Status Reason Start Date Expiration Date Visits Requested Visits Authorized [id number] Pending Review Specialty Services Required 08/16/2025 02/15/2027 1 1 Encounter Details Date Type Department Care Team (Late st Contact Info) Description 08/31/2025 11:20 AM EST Office [facility] [address] [place] [address] Renea Li, ILEANA [address] [place] [address] Encounter related to worker's compensation claim (Primary Dx); Complication of toe amputation stump (CMS/HCC) Social History Tobacco Use Types Packs/Day Years [...] were you homeless or living in a jail (including now)? No 08/09/2025 [facility] Utilities Answer Date Recorded In the past [...] Sign Reading Time Taken Comments Blood Pressure 180/72 08/31/2025 11:34 AM EST Pulse 70 08/31/2025 11:34 AM EST Temperature 36.8 C (98.2 F) 08/31/2025 11:34 AM EST Respiratory Rate - - Oxygen Saturation - - Inhaled Oxygen Concentration - - Weight 87.2 kg (192 lb 3.9 oz) 08/31/2025 11:34 AM EST Height 170.2 cm (5' 7.01 ) 08/31/2025 11:[address] Body Mass Index 30.1 08/31/2025 11:34 AM EST documented in this encounter Functional Status * BP Answer Date of Assessment Author 180/72 08/31/2025 11:34 AM EST Jose Dejesus A * Temp Answer Date of Assessment Author 98.2 08/31/2025 11:34 AM EST Jose Dejesus A * Pulse Answer Date of Assessment Author 70 08/31/2025 11:34 AM EST Jose Dejesus A * Height Answer Date of Assessment Author 67.008 08/31/2025 11:34 AM EST Jose Dejesus A * Weight Answer Date of Assessment Author 3075.86 08/31/2025 11:34 AM EST Jose Dejesus A * BMI (Calculated) Answer Date of Assessment Author 30.2 08/31/2025 11:34 AM EST Dejesus, Jose A * Percent Excess Weight Loss Answer Date of Assessment Author 0 08/31/2025 11:34 AM EST Dejesus, Jose A * Total Weight Change Percent Answer Date of Assessment Author 2222 08/31/2025 11:34 AM EST Dejesus, Jose A * Weight Change Since Preop Answer Date of Assessment Author 87.18 08/31/2025 11:34 AM EST Dejesus, Jose A * Initial Excess Weight Answer Date of Assessment Author -67.15 08/31/2025 11:34 AM EST Dejesus, Jose A * IBW in lbs (Bariatric) Answer Date of Assessment Author 148.05 08/31/2025 11:34 AM EST Dejesus, Jose A * Weight Change Since Last Visit Answer Date of Assessment Author 87.18 08/31/2025 11:34 AM EST Dejesus, Jose A * IBW in kg (Bariatric) Answer Date of Assessment Author 67.15 08/31/2025 11:34 AM EST Dejesus Jose A * Percent of IBW Answer Date of Assessment Author 4,580.58 08/31/2025 11:34 AM EST Dejesus Jose A * EBW (kg) Answer Date of Assessment Author 3,073.96 08/31/2025 11:34 AM EST Dejesus Jose A * EBW (lbs) Answer Date of Assessment Author 3,066.61 08/31/2025 11:34 AM EST Dejesus Jose A * Weight Change 24 hrs Answer Date of Assessment Author 7 08/31/2025 11:34 AM EST Dejesus Jose A * BSA (Calculated - sq m) Answer Date of Assessment Author 2.03 08/31/2025 11:34 AM EST Dejesus Jose A * BMI (Calculated) Answer Date of Assessment Author 30.1 08/31/2025 11:34 AM EST Dejesus Jose A * BP Location Answer Date of Assessment Author Left arm 08/31/2025 11:34 AM EST Dejesus, Jose A * IBW/kg (Calculated) Male Answer Date of Assessment Author 66.12 08/31/2025 11:34 AM EST Dejesus Jose A * IBW/kg (Calculated) Female Answer Date of Assessment Author 61.62 08/31/2025 11:34 AM EST Dejesus, Jose A * IBW/kg (Calculated) Answer Date of Assessment Author 66.12 08/31/2025 11:34 AM EST Dejesus, Jose A * Weight in (lb) to have BMI = 25 Answer Date of Assessment Author 159.3 08/31/2025 11:34 AM EST Dejesus, Jose A * BMI (Calculated) Answer Date of Assessment Author 30.2 08/31/2025 11:34 AM EST Dejesus, Jose A * Percent Excess Weight Loss Answer Date of Assessment Author 0 08/31/2025 11:34 AM EST Dejesus, Jose A * Weight Change Since Preop Answer Date of Assessment Author 87.2 08/31/2025 11:34 AM EST Dejesus, Jose A * Initial Excess Weight Answer Date of Assessment Author -67.15 08/31/2025 11:34 AM EST Dejesus, Jose A * IBW in kg (Bariatric) Answer Date of Assessment Author 67.15 08/31/2025 11:34 AM EST Dejesus, Jose A * IBW in lb (Bariatric) Answer Date of Assessment Author 148.05 08/31/2025 11:34 AM EST Dejesus, Jose A * Weight Change Since Last Visit Answer Date of Assessment Author 87.2 08/31/2025 11:34 AM EST Dejesus, Jose A * Percent of IBW Answer Date of Assessment Author 129.85 08/31/2025 11:34 AM EST Dejesus, Jose A * EBW (kg) Answer Date of Assessment Author 20.03 08/31/2025 11:34 AM EST Dejesus, Jose A * EBW (lb) Answer Date of Assessment Author 44.19 08/31/2025 11:34 AM EST Dejesus, Jose A * Difference in Weight Since Last Visit Answer Date of Assessment Author 7 08/31/2025 11:34 AM EST Dejesus, Jose A * Temp (in Celsius) for CHEVAK IV Answer Date of Assessment Author 36.8 08/31/2025 11:34 AM EST Dejesus, Jose A * IBW/kg (Calculated) Answer Date of Assessment Author 66.12 08/31/2025 11:34 AM Jose Ball A * Adult Low Range Vt 6mL/kg Answer Date of Assessment Author 396.72 08/31/2025 11:34 AM Justin Ballden A * Adult Moderate Range Vt 8mL/kg Answer Date of Assessment Author 528.96 08/31/2025 11:34 AM Justin Ballden A * Adult High Range Vt 10mL/kg Answer Date of Assessment Author 661.2 08/31/2025 11:34 AM Jose Ball A * Are you deaf or do you [...] 08/16/2025 2:53 PM Marina Velázquez RN * BP Answer Date of Assessment Author 180/72 08/31/2025 11:34 AM Jose Ball A * Temp Answer Date of Assessment Author 98.2 08/31/2025 11:34 AM Jose Ball A * Pulse Answer Date of Assessment Author 70 08/31/2025 11:34 AM Jose Ball A * Height Answer Date of Assessment Author 67.008 08/31/2025 11:34 AM Justin Ballden A * Weight Answer Date of Assessment Author 3075.86 08/31/2025 11:34 AM Justin Ballden A * BSA (Calculated - sq m) Answer Date of Assessment Author 2.03 08/31/2025 11:34 AM Justin Ballden A * BMI (Calculated) Answer Date of Assessment Author 30.1 08/31/2025 11:34 AM Jose Ball A * BP Location Answer Date of Assessment Author Left arm 08/31/2025 11:34 AM EST Dejesus, Jose A * Weight in (lb) to have BMI = 25 Answer Date of Assessment Author 159.3 08/31/2025 11:34 AM EST Justin Dejesusden A documented as of this encounter Mental Status * BP Answer Entry Date Author 180/72 08/31/2025 11:34 AM EST Justin Dejesusden A * Temp Answer Entry Date Author 98.2 08/31/2025 11:34 AM Justin Ballden A * Pulse Answer Entry Date Author 70 08/31/2025 11:34 AM EST Dejesus Jose A * Height Answer Entry Date Author 67.008 08/31/2025 11:34 AM EST Burgess Jose A * Weight Answer Entry Date Author 3075.86 08/31/2025 11:34 AM EST Justin Dejesusden A * BMI (Calculated) Answer Entry Date Author 30.2 08/31/2025 11:34 AM EST Justin Dejesusden A * Percent Excess Weight Loss Answer Entry Date Author 0 08/31/2025 11:34 AM EST Justin Dejesusden A * Total Weight Change Percent Answer Entry Date Author 2222 08/31/2025 11:34 AM EST Justin Dejesusden A * Weight Change Since Preop Answer Entry Date Author 87.18 08/31/2025 11:34 AM EST Justin Dejesusden A * Initial Excess Weight Answer Entry Date Author -67.15 08/31/2025 11:34 AM EST Justin Dejesusden A * IBW in lbs (Bariatric) Answer Entry Date Author 148.05 08/31/2025 11:34 AM EST Justin Dejesusden A * Weight Change Since Last Visit Answer Entry Date Author 87.18 08/31/2025 11:34 AM EST Burgess Jose A * IBW in kg (Bariatric) Answer Entry Date Author 67.15 08/31/2025 11:34 AM EST Justin Dejesusden A * Percent of IBW Answer Entry Date Author 4,580.58 08/31/2025 11:34 AM EST Justin Dejesusden A * EBW (kg) Answer Entry Date Author 3,073.96 08/31/2025 11:34 AM EST Burgess Jose A * EBW (lbs) Answer Entry Date Author 3,066.61 08/31/2025 11:34 AM EST Dejesus, Jose A * Weight Change 24 hrs Answer Entry Date Author 7 08/31/2025 11:34 AM EST Dejesus, Jose A * BSA (Calculated - sq m) Answer Entry Date Author 2.03 08/31/2025 11:34 AM EST Dejesus, Jose A * BMI (Calculated) Answer Entry Date Author 30.1 08/31/2025 11:34 AM EST Dejesus, Jose A * BP Location Answer Entry Date Author Left arm 08/31/2025 11:34 AM EST Dejesus, Jose A * IBW/kg (Calculated) Male Answer Entry Date Author 66.12 08/31/2025 11:34 AM EST Dejesus, Jose A * IBW/kg (Calculated) Female Answer Entry Date Author 61.62 08/31/2025 11:34 AM EST Dejesus, Jose A * IBW/kg (Calculated) Answer Entry Date Author 66.12 08/31/2025 11:34 AM EST Dejesus, Jose A * Weight in (lb) to have BMI = 25 Answer Entry Date Author 159.3 08/31/2025 11:34 AM EST Dejesus, Jose A * BMI (Calculated) Answer Entry Date Author 30.2 08/31/2025 11:34 AM EST Dejesus, Jose A * Percent Excess Weight Loss Answer Entry Date Author 0 08/31/2025 11:34 AM EST Dejesus Jose A * Weight Change Since Preop Answer Entry Date Author 87.2 08/31/2025 11:34 AM EST Dejesus, Jose A * Initial Excess Weight Answer Entry Date Author -67.15 08/31/2025 11:34 AM EST Dejesus, Jose A * IBW in kg (Bariatric) Answer Entry Date Author 67.15 08/31/2025 11:34 AM EST Dejesus, Jose A * IBW in lb (Bariatric) Answer Entry Date Author 148.05 08/31/2025 11:34 AM EST Dejesus, Jose A * Weight Change Since Last Visit Answer Entry Date Author 87.2 08/31/2025 11:34 AM EST Dejesus, Jose A * Percent of IBW Answer Entry Date Author 129.85 08/31/2025 11:34 AM EST Justin Dejesusden A * EBW (kg) Answer Entry Date Author 20.03 08/31/2025 11:34 AM EST Burgess Jose A * EBW (lb) Answer Entry Date Author 44.19 08/31/2025 11:34 AM EST Burgess Jose A * Difference in Weight Since Last Visit Answer Entry Date Author 7 08/31/2025 11:34 AM EST Dejesus Jose A * Temp (in Celsius) for CHEVAK IV Answer Entry Date Author 36.8 08/31/2025 11:34 AM EST Dejesus Jose A * IBW/kg (Calculated) Answer Entry Date Author 66.12 08/31/2025 11:34 AM EST Burgess Jose A * Adult Low Range Vt 6mL/kg Answer Entry Date Author 396.72 08/31/2025 11:34 AM EST Justin Dejesusden A * Adult Moderate Range Vt 8mL/kg Answer Entry Date Author 528.96 08/31/2025 11:34 AM EST Burgess Jose A * Adult High Range Vt 10mL/kg Answer Entry Date Author 661.2 08/31/2025 11:34 AM EST Jose Dejesus A * Because of a physical, mental, or emotional condition, do you have serious difficulty concentrating, remembering, or making decisions? (5 years old or older) Answer Entry Date Author No 08/16/2025 2:53 PM EST Marina Madison RN documented in this encounter Miscellaneous Notes * Patient Instructions - Lilly Coy RN - 08/31/2025 11:20 AM EST [facility] Physician Orders/Patient Instructions Should you notice a significant change in your wound(s) (such as increased drainage, foul odor, or pain) or have questions or problems following these instructions, please contact us at or call your primary care physician or the hospital emergency rooms. Offloading: Other: Continue to wear your offloading shoe. Wound Care/Dressing: Wound location Left 4th toe amp site Cleanse Wound With: with soap and water You may shower, please pat dry prior to dressing. Apply: Collagen with silver Cover With: Moistened Gauze with Normal Saline Secure With: Kerlix and Tape Dressing Changes: Daily * Progress Notes - Renea Li PA - 08/31/2025 11:20 AM ESTAssociated Order(s): Debridement Anterior;Left Toe (Comment which one) Surgical Post-Procedure Diagnose(s): Complication of toe amputation stump (CMS/HCC) Hi Goode is a 60 y.o. male who comes in to see us today for: Chief Complaint Wound Check 08/11/25 ([place]): Left 4th toe amputation His wound was debrided as described below: Debridement Anterior;Left Toe (Comment which one) Surgical Wound 08/11/25 Surgical Toe (Comment which one) Anterior;Left Performed by: Renea Li PA Authorized by: Renea Li PA Consent Consent obtained? written (indications for the procedure include removal of devitalized, necrotic or nonviable tissue) Consent given by: patient Risks discussed? procedural risks discussed (risks including but not limited to infection, pain, bleeding, scarring, tissue and nerve damage) Immediately prior to the procedure a time out was called and the performing provider verified the correct patient, procedure, equipment, aircraft life support fitter, and site/side marked as required. Debridement Details Performed by: ILEANA Debridement type: surgical Comment regarding debridement type: excisional Level of debridement: subcutaneous tissue Is excisional: Yes Pain control: lidocaine 4% Pain control administration type: topical Pre-debridement measurements Length (cm): 2 Width (cm): 1 Depth (cm): 0.1 Surface Area (cm^2): 1.57 Post-debridement measurements Length (cm): 2 Width (cm): 1 Depth (cm): 0.1 Percent debrided: 100% Surface Area (cm^2): 1.57 Area Debrided (cm^2): 1.57 Volume (cm^3): 0.1 Tissue and other material debrided: subcutaneous tissue Devitalized tissue debrided: biofilm, callus, exudate, fibrin, necrotic debris and slough Instrument(s) utilized: curette Bleeding: small Hemostasis obtained with: pressure Procedural pain (0-10): 0 Post-procedural pain: 0 Response to treatment: procedure was tolerated well Assessment/Plan In Summary: Hi Goode is a 60 y.o. 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 Below is a summary of the diagnoses addressed in today's visit andany associated orders. Problem List Items Addressed This Visit Other Encounter related to worker's compensation claim - Primary Relevant Orders Ambulatory referral to Physical Medicine Rehab Other Visit Diagnoses Complication of toe amputation stump (CMS/HCC) Relevant Orders Debridement 1 Month - Follow Up [facility] We will see him back for: No follow-ups on file. documented in this encounter Plan of Treatment Upcoming Encounters Date Type Department Care Team (Late st Contact Info) Description 09/24/2025 10:40 AM EST Office Visit Physical Medicine & Rehabilitation Clinic at [facility] [address] [place] [address] Bossman Haywood DO [address] [place] [address] 09/30/2025 11:40 AM EST Office Visit [facility] [address] [facility] 5th Floor [address] [place] [address] Renea Li PA [address] [facility] [address] [place] [address] Scheduled Orders Name Type Priority Associated Diagnoses Orde r Schedule Debridement Procedures Routine Complication of toe amputation stump (CMS/HCC) 1 Occurrences starting 08/31/2025 until 11/01/2025 Scheduled Referrals Name Type Priority Associated Diagnoses Order Schedule Ambulatory referral to Physical Medicine Rehab Outpatient Referral Routine Encounter related to worker's compensation claim 1 Occurrences starting 08/31/2025 until 03/04/2027 1 Month - Follow Up [facility] Care Outpatient Referral Routine Complication of toe amputation stump (CMS/HCC) Expected: 09/28/2025 (Approximate), Expires: 02/22/2027 documented as of this encounter Procedures Procedure Name Priority Date/Time Associated Diagnosis Comments VA DEBRIDEMENT, SKIN, SUB-Q TISSUE,=<20 SQ CM Routine 08/31/2025 11:20 AM EST Complication of toe amputation stump (CMS/HCC) documented in this encounter Results * VA DEBRIDEMENT, SKIN, SUB-Q TISSUE,=<20 SQ CM (08/31/2025 11:20 AM EST) Narrative Renea Li PA - 08/31/2025 11:20 AM EST Renea Li PA 08/31/2025 1:14 PM Debridement Anterior;Left Toe (Comment which one) Surgical Wound 08/11/25 Surgical Toe (Comment which one) Anterior;Left Performed by: Renea Li PA Authorized by: Renea Li PA Consent Consent obtained? written (indications for the procedure include removal of devitalized, necrotic or nonviable tissue) Consent given by: patient Risks discussed? procedural risks discussed (risks including but not limited to infection, pain, bleeding, scarring, tissue and nerve damage) Immediately prior to the procedure a time out was called and the performing provider verified the correct patient, procedure, equipment, aircraft life support fitter, and site/side marked as required. Debridement Details Performed by: ILEANA Debridement type: surgical Comment regarding debridement type: excisional Level of debridement: subcutaneous tissue Is excisional: Yes Pain control: lidocaine 4% Pain control administration type: topical Pre-debridement measurements Length (cm): 2 Width (cm): 1 Depth (cm): 0.1 Surface Area (cm^2): 1.57 Post-debridement measurements Length (cm): 2 Width (cm): 1 Depth (cm): 0.1 Percent debrided: 100% Surface Area (cm^2): 1.57 Area Debrided (cm^2): 1.57 Volume (cm^3): 0.1 Tissue and other material debrided: subcutaneous tissue Devitalized tissue debrided: biofilm, callus, exudate, fibrin, necrotic debris and slough Instrument(s) utilized: curette Bleeding: small Hemostasis obtained with: pressure Procedural pain (0-10): 0 Post-procedural pain: 0 Response to treatment: procedure was tolerated well us Renea TEJEDA IN CLINIC/BEDSIDE ORDERABLES Final Result documented in this encounter Visit Diagnoses Diagnosis Encounter related to worker's compensation claim- Primary Complication of toe amputation stump (CMS/HCC) documented in this encounter Additional Health Concerns Assessment Noted Time A fall risk assessment has been complete d for the patient 08/31/2025 11:42 AM EST A Body Mass Index follow-up plan has been documented for the patient 08/31/2025 12:16 PM EST documented as of this encounter Care Teams Manager Acute Relationship Specialty Start Date End Date Iraida Reese APRN [address] [place] [address] PCP - General 08/07/25 Harriet Bush LPN VALUE-BASED TRANSFORMATION PROGRAM None Registered Nurse 08/17/25 documented as of this encounter
--- OUTSIDE RECORDS SUMMARY | 2025-09-12 03:27 | XMS_ITS | Encounter Summary ---
Author Organization Healthcare Address [address] [place] [address] Care Team Providers Care [employer] Name Role Phone Iraida Reese APRN Primary Care Provider [phone] Harriet Bush LPN Unavailable Unavaila ble Reason for Visit * Reason Comments TCM Encounter Details Date Type Department Care Team (Late st Contact Info) Description 08/17/2025 Patient Outreach [facility] [address] [facility] [place] [address] Harriet Bush LPN VALUE-BASED TRANSFORMATION [...] any time in the past 12 m [facility], were you homeless or living in a half-way (including now)? No 08/09/2025 [facility] Utilities Answer Date Recorded In the past [...] as of this encounter Functional Status * Engagement Question Answer Date of Assessment Author Is the patient eligible? Yes 08/17/2025 12:37 PM Harriet Wise LPN * Medications Question Answer Date of Assessment Author Medications reviewed with patient/caregiver? Yes 08/17/2025 12:37 PM Dara Wise LPN Is the patient having any side effects they believe may be caused by any medication additions or changes? No 08/17/2025 12:37 PM Hair Wise LPN Does the patient have all medications ordered at discharge? Yes 08/17/2025 12:37 PM Dara Wise LPN Is the patient taking all medications as directed (includes completed medication regime)? Yes 08/17/2025 12:37 PM Dara Wise LPN * Appointments Question Answer Date of Assessment Author Does the patient have a primary care provider? Yes 08/17/2025 12:37 PM Harriet Wise LPN Nursing Interventions Educated patient o n importance of making appointment 08/17/2025 12:37 PM Harriet Wise LPN * Patient Teaching Question Answer Date of Assessment Author Did the patient receive a copy of their discharge instructions? Yes 08/17/2025 12:37 PM Dara Wise, FURNACE DOOR TENDER What is the patient's perception of their health status since discharge? Improving 08/17/2025 12:37 PM Anton Wise FURNACE DOOR TENDER Is the patient/caregiver able to teach back signs and symptoms related to disease process for when to call PCP? Yes 08/17/2025 12:37 PM Dara Wise, FURNACE DOOR TENDER Is the patient/caregiver able to teach back signs and symptoms related to disease process for when to call 911? Yes 08/17/2025 12:37 PM Dara Wise, FURNACE DOOR TENDER Is the patient/caregiver able to teach back the hierarchy of who to call/visit for symptoms/problems? PCP, Specialist, Home Health nurse, Urgent Care, ED, 911 Yes 08/17/2025 12:37 PM Dara Wise, FURNACE DOOR TENDER * Wrap Up Question Answer Date of Assessment Author Call completed? Yes 08/17/2025 12:37 PM Harriet Membreno LPN * Are you deaf or do you [...] Visit Physical Medicine & Rehabilitation Clinic at [facility] [address] [place] [address] Bossman Haywood DO [address] [place] [address] 09/30/2025 11:40 AM EST Office Visit [facility] [address] [facility] 5th [address] [place] [id number] Renea Li, PA [address] [place] [address] documented as of this encounter Visit Diagnoses Not on filedocumented in this encounter Additional Health Concerns Assessment Noted Time A Body Mass Index follow-up plan has been documented for the patient 08/16/2025 2:54 PM EST documented as of this encounter Care Teams [employer] Teacher Relationship Specialty Start Date End Date Iraida Reese APRN [address] [place] [address] PCP - General 08/07/25 Harriet Bush LPN VALUE-BASED TRANSFORMATION PROGRAM None Registered Nurse 08/17/25 documented as of this encounter
[2025-09-12 03:29] VITALS: BP 150/81; PULSE 68; RESP 18; TEMP 36.6; O2SAT 95
--- OUTSIDE RECORDS SUMMARY | 2025-09-12 03:29 | XMS_ITS | Encounter Summary ---
Author Organization Healthcare Address [address] [place] [address] Care Team Providers Care Mock Up Maker Name Role Phone Iraida Reese APRN Primary Care Provider [phone] Encounter Details Date Type Department Care Team [...] time in the past 12 m [facility], were you homeless or living in a fpc (including now)? No 08/09/2025 [facility] Utilities Answer Date Recorded In the [...] as of this encounter Functional Status * Communicable Disease Screening Question Answer Date of Assessment Author Have you been in contact with someone who was sick? No / Unsure 08/11/2025 11:47 AM Nidia Polanco RN Do you have any of the following new or worsening symptoms? None of these 08/11/2025 11:47 AM Nidia Polanco RN * Travel Screening Question Answer Date of Assessment Author Have you traveled [place] or domestically in the last month? No 08/11/2025 11:47 AM Nidia Polanco RN documented as of this encounter Mental Status * Communicable Disease Screening Question Answer Entry Date Author Have you been in contact with someone who was sick? No / Unsure 08/11/2025 11:47 AM Nidia Polanco RN Do you have any of the following new or worsening symptoms? None of these 08/11/2025 11:47 AM Nidia Polanco RN * Travel Screening Question Answer Entry Date Author Have you traveled [place] or domestically in the last month? No 08/11/2025 11:47 AM Nidia Laird RN documented in this encounter Plan of Treatment Upcoming Encounters Date Type Department Care Team (Late st Contact Info) Description 09/24/2025 10:40 AM EST Office Visit [facility] [address] [place] [address] Bossman Haywood DO [address] [place] [address] 09/30/2025 11:40 AM EST Office Visit [facility] [address] [place] [address] Renea Li, ILEANA [address] [place] [address] documented as of this encounter Visit Diagnoses Not on filedocumented in this encounter Additional Health Concerns Assessment Noted Time A Body Mass Index follow-up plan has been documented for the patient 08/16/2025 2:54 PM EST documented as of this encounter Care Teams Mock Up Maker Relationship Specialty Start Date End Date Iraida Reese APRN [address] [place] [address] PCP - General 08/07/25 documented as of this encounter
--- OUTSIDE RECORDS SUMMARY | 2025-09-12 03:29 | XMS_ITS | Encounter Summary ---
Author Organization Healthcare Address [address] [place] [id number] Care Team Providers Care Emissions Testing Technician Name Role Phone Iraida Reese APRN Primary Care Provider [phone] Harriet Bush LPN Unavailable Unavaila ble Encounter Details Date Type Department Care Team (Latest Contact Info) Description 08/29/2025 Travel Social History Tobacco Use Types Packs/Day [...] any time in the past 12 m [facility], were you homeless or living in a prison (including now)? No 08/09/2025 [facility] Utilities Answer Date Recorded In the [...] Date Author No 08/16/2025 2:53 PM Marina Veláqzuez RN documented in this encounter Plan of Treatment Upcoming Encounters Date Type Department Care Team (Late st Contact Info) Description 09/24/2025 10:40 AM EST Office Visit [facility] [address] [place] [address] Bossman Haywood, DO [address] [place] [address] 09/30/2025 11:40 AM EST Office Visit [facility] [address] [place] [address] Renea Li, ILEANA [address] [place] [address] documented as of this encounter Visit Diagnoses Not on filedocumented in this encounter Additional Health Concerns Assessment Noted Time A Body Mass Index follow-up plan has been documented for the patient 08/16/2025 2:54 PM EST documented as of this encounter Care Teams Emissions Testing Technician Relationship Specialty Start Date End Date Iraida Reese APRN [address] [place] [address] PCP - General 08/07/25 Harriet Bush, INNER TUBE TUBER MACHINE OPERATOR VALUE-BASED TRANSFORMATION PROGRAM None Registered Nurse 08/17/25 documented as of this encounter
--- OUTSIDE RECORDS SUMMARY | 2025-09-12 03:29 | XMS_ITS ---
Author Organization [facility] Address [address] [place] [address] Care Team Providers Care Clinical Nurse Occupational Medicine Name Role Phone Hugh Iraida CHAKA Primary Care Provider [phone] Harriet Bush LPN Unavailable Unavaila ble Transitional Care Management Status:Active (Active) Program category:Transitional Care Management - [facility] Start date:08/17/2025 Enrollment date:08/17/2025 Enrollment reason:Identified using hospital discharge data Overview This episode type is for outpatient care managers enrolling patients in the [facility] Transitional Care Management program. Case Team Name Relationship Phone Harriet Bush LPN(Responsible Staff) Lindsey robles Nurse Continued Care and Services Coordination
--- OUTSIDE RECORDS SUMMARY | 2025-09-12 03:29 | XMS_ITS | Encounter Summary ---
Author Organization Healthcare Address [address] [place] [address] Care Team Providers Care Analytics Senior Manager Name Role Phone Justin Morales MD Primary Care Provider [phone] Iraida Reese APRN Primary Care Provider [phone] Harriet Buhs PROFESSOR OF GEOLOGY Unavailable Unavaila ble Encounter Details Date Type Department Care Team (Late st Contact Info) Description 01/31/2023 [facility] [address] [place] [address] Kayla Monroy DO [address] [place] [address] Increased prostate specific antigen (PSA) velocity (Primary [...] Visit [facility] at [facility] [address] [place] [address] Bossman Haywood DO [address] [place] [address] 09/30/2025 11:40 AM EST Office Visit [facility] [address] [place] [address] Renea Li, PA [address] [facility] [address] [place] [address] documented as of this encounter Visit Diagnoses Diagnosis Increased prostate specific antigen (PSA) velocity- Primary documented in this encounter Care Teams Analytics Senior Manager Relationship Specialty [place] [address] PCP - General 01/27/21 08/06/25 Iraida Reese APRN [address] [place] [address] PCP - General 08/07/25 Harriet Bush LPN VALUE-BASED TRANSFORMATION PROGRAM None Registered Nurse 08/17/25 documented as of this encounter
--- OUTSIDE RECORDS SUMMARY | 2025-09-12 03:29 | XMS_ITS | Encounter Summary ---
Author Organization Healthcare Address [address] [place] [address] Care Team Providers Care Flame Annealing Machine Operator Name Role Phone Justin Morales MD Primary Care Provider [phone] Iraida Reese APRN Primary Care Provider [phone] Encounter Details Date Type Department Care Team (Late st Contact Info) Description 08/06/2025 Orders Only External Location [address] [place] [address] Cayden Feldman, [address] [place] [address] Social History Tobacco Use Types Packs/Day Years [...] any time in the past 12 m [facility], were you homeless or living in a group home (including now)? No 08/09/2025 [facility] Utilities Answer Date Recorded In the [...] [facility] [address] [place] [address] Bossman Haywood DO [address] [place] [address] 09/30/2025 11:40 AM EST Office Visit [facility] [address] [place] [address] Renea Li PA [address] [place] [address] documented as of this encounter Procedures Procedure Name Priority Date/Time Associated Diagnosis Comments XR MSK OUTSIDE IMAGES 08/06/2025 10:21 PM EST documented in this encounter Results * XR [facility] OUTSIDE IMAGES (08/06/2025 10:21 PM EST) Anatomical Region Laterality Modality Radiographic Diana ging 08/06/2025 Cayden Feldman DO IMG XR PROCEDURES Edited Res ult - Final documented in this encounter Visit Diagnoses Not on filedocumented in this encounter Care Teams Flame Annealing Machine Operator Relationship Specialty [place] [address] PCP - General 01/27/21 08/06/25 Iraida Reese APRN [address] [place] [address] PCP - General 08/07/25 documented as of this encounter
--- OUTSIDE RECORDS SUMMARY | 2025-09-12 03:29 | XMS_ITS | Clinical Summary ---
Author Organization [facility] Address 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 Active buPROPion SR (Wellbutrin SR) 150 MG 12 hr tablet Take 1 tablet by mouth daily. Do not crush, chew, or split. Active finasteride (Proscar) 5 MG tablet Take 1 tablet by mouth daily. Do not crush, chew, or split. Active lisinopril-hydr oCHLOROthiazide 20-12.5 MG tablet Take 2 tablets by mouth daily. Active multivitamin (Theragran-M) tablet Take 1 tablet by mouth daily. Active cholecalciferol (Vitamin D3) 25 MCG (1000 UT) tablet Take 1 tablet by mouth daily. Active acetaminophen (Tylenol) 500 MG tablet Take 2 tablets by mouth every 8 hours as needed for pain. 5 Active Blood Glucose Monitoring Suppl device Test three times daily 1 each 5 Active glucose blood test strip Test three times daily 300 strip 11 5 Active Lancets misc Test three times daily 300 each 11 5 Active Alcohol Sheets (Alcoh-Wipe) sheet Use as directed. 300 each 11 5 Active pen needle, diabetic 31G X 5 MM misc Use as directed with insulin pen. 100 each 11 5 Active insulin glargine (Lantus SoloStar) 100 UNIT/ML injection pen Inject 20 Units under the skin 2 times a day. 15 mL 2 5 Active pen needle, diabetic 31G X 5 MM misc Use as directed with insulin pen. 100 each 11 5 Active insulin aspart (NovoLOG FLEXPEN) 100 UNIT/ML injection pen Inject 8 Units under the skin 3 times a day before meals. Add a correction scale dose as follows: blood sugar 150-199 use 2 units, 200-249 use 4 units, 250-299 use 6 units, 300-349 use 8 units, 350-399 use 10 units, >399 12 units and call provider. Max daily dose 50 units. 15 mL 5 5 Active cefdinir (Omnicef) 300 MG capsule 5 Active lisinopril 10 MG tablet 8 Active tamsulosin (Flomax) 0.4 MG 24 hr capsule 8 Active glipiZIDE XL 10 MG 24 hr tablet Take 1 tablet by mouth daily. Do not crush, chew, or split. 025 Discontinu ed(Stop Taking at Discharge) insulin aspart (NovoLOG FLEXPEN) 100 UNIT/ML injection pen Inject 0-12 Units under the skin 3 times a day before meals. 025 Discontinu ed(Stop Taking at Discharge) insulin glargine (Lantus SoloStar) 100 UNIT/ML injection pen Inject 20-25 Units under the skin nightly. 025 Discontinu ed(Stop Taking at Discharge) ibuprofen 400 MG tablet Take 1 tablet by mouth every 8 hours as needed for moderate pain for up to 5 days. 5 025 cefadroxil (Duricef) 500 MG capsuleIndicati ons:Cellulitis and abscess of toe of left foot Take 1 capsule by mouth 2 times a day for 2 days. 4 capsule 5 025 cefadroxil (Duricef) 500 MG capsuleIndicati ons:Status post amputation of lesser toe, left (CMS/HCC),Infec tion of superficial incisional surgical site after procedure, initial encounter Take 1 capsule by mouth 2 times a day for 5 days. 10 capsule 5 025 Active Problems Problem Noted Date Diagnosed Date Encounter related to worker's compensation claim 08/31/2025 Cellulitis and abscess of toe of left foot 08/07 Insulin dependent type 2 diabetes mellitus Essential (primary) hypertension Hyperlipidemia, mixed Major depressive disorder Osteoarthritis Encounters Date Type Department Care Team Description 08/31/2025 11:20 AM EST Office Visit [facility] [address] 5th Floor [address] [place] [address] Renea Li PA Encounter related to worker's compensation claim (Primary Dx); Complication of toe amputation stump (CMS/HCC) 08/31/2025 Travel 08/29/2025 Travel 08/28/2025 10:07 PM EST - 08/29/2025 2:22 AM EST Emergency [facility] Emergency Department [address] [place] [id number] Anai Desai MD Infection of superficial incisional surgical site after procedure, initial encounter (Primary Dx); Status post amputation of lesser toe, left (CMS/HCC) Discharge Disposition: Home or Self Care 08/28/2025 Travel 08/17/2025 Patient Outreach [facility] [address] [place] [address] Harriet Bush LPN [facility] 08/11/2025 12:15 PM EST Anesthesia Event [facility] OPERATING ROOM [address] [place] [phone] Raymond Villela MD Harned, Madison H, MD 08/11/2025 12:00 PM EST - 08/11/2025 1:30 PM EST Surgery [facility] [address] [place] [address] Andie Moyer MD AMPUTATION,TOE 08/11/2025 Travel 08/09/2025 Travel 08/07/2025 5:18 AM EST - 08/16/2025 5:03 PM EST Hospital Encounter [facility] Inpatient [address] [place] [address] Zay Dave MD Elhelw, Mohamed E, MD Scatliffe, Kristen D, MD Foley, William S, MD Cellulitis and abscess of toe of left foot (Primary Dx); Insulin dependent type 2 diabetes mellitus Discharge Disposition: Home or Self Care 08/07/2025 Travel 08/06/2025 Orders Only External Location [address] [place] [address] Provider, External 08/06/2025 Orders Only External Location [address] [place] [id number] Cayden Feldman, DO from Last 3 Months Family History Medical History Relation Name Comments Diabetes Father Diabetes Maternal Grandfather Heart attack Maternal Grandfather Diabetes Maternal Grandmother Heart attack Maternal Grandmother Diabetes Mother Heart attack Mother Relation Name Status Comments Father Maternal Grandfather Maternal Grandmother Mother Social History Tobacco Use Types Packs/Day Years [...] any time in the past 12 m ont, were you homeless or living in a skilled nursing (including now)? No 08/09/2025 [facility] Utilities Answer Date Recorded In the [...] F) 08/31/2025 11:34 AM EST Respiratory Rate 18 08/29/2025 2:21 AM EST Oxygen Saturation 98% 08/29/2025 2:21 AM EST Inhaled Oxygen Concentration - - Weight 87.2 kg (192 lb 3.9 oz) 08/31/2025 11:34 AM EST Height 170.2 cm (5' 7.01 ) 08/31/2025 11:[address] Body Mass Index 30.1 08/31/2025 11:34 AM EST Plan of Treatment Upcoming Encounters Date Type Department Care Team (Late st Contact Info) Description 09/24/2025 10:40 AM EST Office Visit [facility] [address] [place] [address] Bossman Haywood DO [address] [place] [address] 09/30/2025 11:40 AM EST Office Visit [facility] [address] 5th Floor [address] [place] [address] Renea Li, ILEANA [address] [place] [address] Health Maintenance Due Date Last Done Comments [facility]-Depression Screening 1965 [facility]-Infant/Child/Adol SDOH Screenings 1965 Diabetes: Dental Exam 1976 CT Colonography 2011 Colonoscopy 2011 FIT-DNA 2011 FIT 2011 FOBT 2011 Sigmoidoscopy 2011 [facility]-Colorectal Cancer Screening 2011 [facility]-Hepatitis B Vaccines (3 of 3 - Hep B Twinrix 3-dose series) 08/02/2018 03/02/2018, 12/31/2017 [facility]-Pneumococcal Vaccine: 50+ Years (2 of 2 - PCV) 09/07/2021 09/07/2020 [id number] Vaccine (5 - season) 2025 08/08/2022, 01/25/2022, 07/21/2021, Additional history exists [facility]-Influenza Vaccine (#1) 05/17/202506/22, 09/19/2020, 06/23/2019 [facility]-Diabetes: Hemoglobin A1C 11/06/2025 08/07/2025 [facility]- SDOH Screenings 02/06/2026 [facility]-Adult SDOH Screenings 02/06/2026 08/09/2025 [facility]-DTaP,Tdap,and Td Vaccines (5 - Td or Tdap) 08/06/2035 08/06/2025, 04/01/2024, 09/07/2020, Additional history exists [facility]-Hepatitis A Vaccines Aged Out 03/02/2018, 12/15 No longer eligible based on patient's age to complete this topic [facility]-Zoster Vaccines Completed 03/02/2018, 8 [facility]-HIV Screening Completed 08/07/2025 [facility]-Hepatitis C Screening Completed 08/07/2025 [facility]-Obesity Intervention Completed 08/31/2025, 07/18 HPV Vaccines (No Doses Required) Completed [facility]-HIB Vaccines Aged Out No longer e ligible based on patient's age to complete this topic [facility]-IPV Vaccines Aged Out No longer e ligible based on patient's age to complete this topic [facility]-Rotavirus Vaccines Aged Out No lo nger eligible based on patient's age to complete this topic Procedures Procedure Name Priority Date/Time Associated Diagnosis Comments MT DEBRIDEMENT, SKIN, SUB-Q TISSUE,=<20 SQ CM Routine 08/31/2025 11:20 AM EST Complication of toe amputation stump (CMS/HCC) XR FOOT LEFT 3+ VIEWS STAT 08/29/2025 1:12 AM EST SEDIMENTATION RATE, AUTOMATED STAT 08/28/2025 10:05 PM EST C-REACTIVE PROTEIN, PLASMA STAT 08/28/2025 10:05 PM EST CBC W/O DIFFERENTIAL STAT 08/28/2025 10:05 PM EST BASIC METABOLIC PANEL, PLASMA STAT 08/28/2025 10:05 PM EST POCT GLUCOSE METER UNSOLICITED RESULTS Routine 08/16/2025 4:18 PM EST POCT GLUCOSE METER UNSOLICITED RESULTS Routine 08/16/2025 11:12 AM EST POCT GLUCOSE METER UNSOLICITED RESULTS Routine 08/16/2025 8:02 AM EST PHOSPHORUS, PLASMA Routine 08/16/2025 2: 57 AM EST MAGNESIUM, PLASMA Routine 08/16/2025 2:5 7 AM EST COMPREHENSIVE METABOLIC PANEL, PLASMA Timed 08/16/2025 2:57 AM EST CBC WITH AUTO DIFFERENTIAL Timed 08/16/2025 2:57 AM EST C-REACTIVE PROTEIN, PLASMA Timed 08/16/2025 2:57 AM EST POCT GLUCOSE METER UNSOLICITED RESULTS Routine 08/15/2025 7:29 PM EST POCT GLUCOSE METER UNSOLICITED RESULTS Routine 08/15/2025 4:03 PM EST POCT GLUCOSE METER UNSOLICITED RESULTS Routine 08/15/2025 11:00 AM EST POCT GLUCOSE METER UNSOLICITED RESULTS Routine 08/15/2025 7:14 AM EST POCT GLUCOSE METER UNSOLICITED RESULTS Routine 08/15/2025 3:10 AM EST BASIC METABOLIC PANEL, PLASMA Routine 08/15/2025 1:24 AM EST PHOSPHORUS, PLASMA Routine 08/15/2025 1: 24 AM EST MAGNESIUM, PLASMA Routine 08/15/2025 1:2 4 AM EST POCT GLUCOSE METER UNSOLICITED RESULTS Routine 08/14/2025 7:54 PM EST POCT GLUCOSE METER UNSOLICITED RESULTS Routine 08/14/2025 4:06 PM EST POCT GLUCOSE METER UNSOLICITED RESULTS Routine 08/14/2025 11:10 AM EST POCT GLUCOSE METER UNSOLICITED RESULTS Routine 08/14/2025 7:13 AM EST BASIC METABOLIC PANEL, PLASMA Routine 08/14/2025 3:18 AM EST PHOSPHORUS, PLASMA Routine 08/14/2025 3: 18 AM EST MAGNESIUM, PLASMA Routine 08/14/2025 3:1 8 AM EST POCT GLUCOSE METER UNSOLICITED RESULTS [...] EXTRA TUBES Routine 08/13/2025 5:39 AM EST VANCOMYCIN, TROUGH, PLASMA Timed 08/13/2025 5:39 AM EST BASIC METABOLIC PANEL, PLASMA Routine 08/13/2025 5:39 AM EST PHOSPHORUS, PLASMA Routine 08/13/2025 5: 39 AM EST MAGNESIUM, PLASMA Routine 08/13/2025 5:3 9 AM EST POCT GLUCOSE METER UNSOLICITED RESULTS Routine 08/12/2025 7:44 PM EST POCT GLUCOSE METER UNSOLICITED RESULTS Routine 08/12/2025 4:06 PM EST POCT GLUCOSE METER UNSOLICITED RESULTS Routine 08/12/2025 11:02 AM EST POCT GLUCOSE METER UNSOLICITED RESULTS Routine 08/12/2025 7:14 AM EST PHOSPHORUS, PLASMA Routine 08/12/2025 3: 09 AM EST MAGNESIUM, PLASMA Routine 08/12/2025 3:0 9 AM EST COMPREHENSIVE METABOLIC PANEL, PLASMA Timed 08/12/2025 3:09 AM EST CBC WITH AUTO DIFFERENTIAL Timed 08/12/2025 3:09 AM EST POCT GLUCOSE [...] and abscess of toe of left foot PB ANESTHESIA PLACEHOLDER Routine 08/11/2025 12:28 PM EST MT AN ELECTIVE SUPRAGLOTTIC AIRWAY Routine 08/11/2025 12:28 PM EST ANESTHESIA PERIPHERAL IV PLACEMENT Routine 08/11/2025 12:25 PM EST PB POINT OF CARE IMAGING PLACEHOLDER Routine 08/11/2025 12:03 PM EST AMPUTATION, TOE 08/11/2025 12:00 PM EST Cellulitis and abscess of toe of left foot POCT GLUCOSE METER UNSOLICITED RESULTS Routine 08/11/2025 11:42 AM EST POCT GLUCOSE METER UNSOLICITED RESULTS Routine 08/11/2025 7:39 AM EST SEDIMENTATION RATE, AUTOMATED STAT 08/11/2025 3:30 AM EST CBC WITH AUTO DIFFERENTIAL Routine 08/11/2025 3:30 AM EST BASIC METABOLIC PANEL, PLASMA Routine 08/11/2025 3:30 AM EST PHOSPHORUS, PLASMA Routine 08/11/2025 3: 30 AM EST MAGNESIUM, PLASMA Routine 08/11/2025 3:3 0 AM EST POCT GLUCOSE METER UNSOLICITED RESULTS Routine 08/10/2025 7:27 PM EST POCT GLUCOSE METER UNSOLICITED RESULTS Routine 08/10/2025 4:15 PM EST POCT GLUCOSE METER UNSOLICITED RESULTS Routine 08/10/2025 11:13 AM EST POCT GLUCOSE METER UNSOLICITED RESULTS Routine 08/10/2025 7:34 AM EST C-REACTIVE PROTEIN, PLASMA STAT Add-on 08/10/2025 3:22 AM EST VITAMIN D 25 HYDROXY Routine 08/10/2025 3:22 AM EST PHOSPHORUS, PLASMA Routine [...] UNSOLICITED RESULTS Routine 08/09/2025 3:42 AM EST PHOSPHORUS, PLASMA Routine 08/09/2025 2: 30 AM EST MAGNESIUM, PLASMA Routine 08/09/2025 2:3 0 AM EST VITAMIN D, 1, 25-DIHYDROXY Routine 08/09/2025 2:30 AM EST COMPREHENSIVE METABOLIC PANEL, PLASMA Timed 08/09/2025 2:30 AM EST CBC WITH AUTO DIFFERENTIAL Timed 08/09/2025 2:30 AM EST C-REACTIVE PROTEIN, PLASMA Timed 08/09/2025 2:30 AM EST MR [...] UNSOLICITED RESULTS Routine 08/08/2025 3:48 AM EST BASIC METABOLIC PANEL, PLASMA Routine 08/08/2025 1:15 AM EST CBC WITH AUTO DIFFERENTIAL Routine 08/08/2025 1:15 AM EST POCT GLUCOSE METER UNSOLICITED RESULTS Routine 08/07/2025 8:55 PM EST POCT GLUCOSE METER UNSOLICITED RESULTS Routine 08/07/2025 4:34 PM EST BLOOD CULTURE (AEROBIC/ANAEROBIC SET) STAT 08/07/2025 7:16 AM EST HEMOGLOBIN A1C Add-On 08/07/2025 6:42 AM EST ED HIV 1/2 ANTIBODY/ANTIGEN SCREEN WITH REFLEX TO HIV I/II DIFFERENTIATION STAT 08/07/2025 6:42 AM EST ED PROTOCOL HIV 1/2 ANTIBODY/ANTIGEN SCREEN W/REFLEX TO HIV 1/2 ANTIBODY DIFFERENTIATION STAT 08/07/2025 6:42 AM EST HEPATITIS C ANTIBODY - ED W/REFLEX TO HCV QUANT PCR STAT 08/07/2025 6:42 AM EST SEDIMENTATION RATE, AUTOMATED STAT 08/07/2025 6:42 AM EST C-REACTIVE PROTEIN, PLASMA STAT 08/07/2025 6:42 AM EST LACTATE, VENOUS STAT 08/07/2025 6:42 AM EST TYPE AND SCREEN STAT 08/07/2025 6:42 AM EST COMPREHENSIVE METABOLIC PANEL, PLASMA STAT 08/07/2025 6:42 AM EST PROTHROMBIN TIME(PT) / INR STAT 08/07/2025 6:42 AM EST CBC WITH AUTO DIFFERENTIAL STAT 08/07/2025 6:42 AM EST BLOOD CULTURE (AEROBIC/ANAEROBIC SET) STAT 08/07/2025 6:42 AM EST ECG ADULT STAT 08/07/2025 6:[address] MSK OUTSIDE IMAGES 08/06/2025 11:51 PM EST XR MSK OUTSIDE IMAGES 08/06/2025 10:21 PM EST from Last 3 Months Results * MT DEBRIDEMENT, SKIN, SUB-Q TISSUE,=<20 SQ CM (08/31/2025 [...] provider verified the correct patient, procedure, equipment, clerical and office support workers, and site/side marked as required. Debridement Details [...] Renea TEJEDA IN CLINIC/BEDSIDE ORDERABLES Final Result * XR Foot Left 3+ Views (08/29/2025 [...] Sed rate, automated (08/28/2025 10:05 PM EST) Only the most recent of3 resultswithin the time period is included. Sedimentation Rate 42(H) <20 mm/hr 2024 10:44 PM EST [facility] Blood Venous blood specimen / Unknown Venipuncture / Unknown 08/28/2025 10:05 PM EST 08/28/2025 10:22 PM EST us Mahendra Kent MD LAB BLOOD ORDERABLES Final Res ult [facility] [address] [place] [address] * (ABNORMAL) CBC (08/28/2025 10:05 PM EST) WBC Count 7.28 3.70 - 10.30 10*3/uL LAB HEMATOLOGY METHOD 08/28/2025 10:30 PM EST [facility] RBC Count 4.64 4.60 - 6.10 10*6/uL LAB HEMATOLOGY METHOD 08/28/2025 10:30 PM EST [facility] HGB 13.5(L) 13.7 - 17.5 g/dL LAB HEMATOLOGY METHOD 08/28/2025 10:30 PM EST [facility] HCT 40.2 40.0 - 51.0 % LAB HEMATOLOGY METHOD 08/28/2025 10:30 PM EST [facility] Platelet Count 188 155 - 369 10*3/uL LAB HEMATOLOGY METHOD 08/28/2025 10:30 PM EST [facility] MCV 87 79 - 98 fL LAB HEMATOLOGY METHOD 08/28/2025 10:30 PM EST [facility] MCH 29.1 26.0 - 32.0 pg LAB HEMATOLOGY METHOD 08/28/2025 10:30 PM EST [facility] MCHC 33.6 30.7 - 35.5 g/dL LAB HEMATOLOGY METHOD 08/28/2025 10:30 PM EST [facility] RDW 11.9 11.5 - 14.5 % LAB HEMATOLOGY METHOD 08/28/2025 10:30 PM EST [facility] MPV 12.5 8.8 - 12.5 fL LAB HEMATOLOGY METHOD 08/28/2025 10:30 PM EST [facility] nRBC 0.0 <=0.0 per 100 WBCs LAB HEMATOLOGY METHOD 08/28/2025 10:30 PM EST [facility] Blood Venous blood specimen / Unknown Venipuncture / Unknown 08/28/2025 10:05 PM EST 08/28/2025 10:22 PM EST us Mahendra Kent MD LAB BLOOD ORDERABLES Final Res ult [facility] [address] [place] [address] * C-Reactive protein (08/28/2025 10:05 PM EST) Only the most recent of5 resultswithin the time period is included. CRP, Plasma 7.0 <=8.0 mg/L 08/28/2025 10:53 PM EST [facility] Blood Venous blood specimen / Unknown Venipuncture / Unknown 08/28/2025 10:05 PM EST 08/28/2025 10:22 PM EST Narrative [facility] - 08/28/2025 10:53 PM EST This CRP test is appropriate for assessment of infection, systemic inflammation and/or tissue injury. To assess cardiovascular disease risk order high sensitivity CRP (CRPH). us Mahendra Kent MD LAB BLOOD ORDERABLES Final Res ult [facility] [address] [place] [address] * (ABNORMAL) BMP (08/28/2025 10:05 PM EST) Only the most recent of6 resultswithin the time period is included. Glucose, Plasma 148(H) 74 - 99 mg/dL 08/28/2025 10:53 PM EST [facility] BUN, Plasma 28(H) 7 - 21 mg/dL 08/28/2025 10:53 PM EST [facility] Creatinine, Plasma 1.12 0.70 - 1.20 mg/dL 08/28/2025 10:53 PM EST [facility] BUN/Creatinine Ratio 25 08/28/2025 10:53 PM EST [facility] Sodium, Plasma 140 136 - 145 mmol/L 08/28/2025 10:53 PM EST [facility] Potassium, Plasma 4.1 3.6 - 4.9 mmol/L 08/28/2025 10:53 PM EST [facility] Chloride, Plasma 103 97 - 107 mmol/L 08/28/2025 10:53 PM EST [facility] CO2, Plasma 25 22 - 29 mmol/L 08/28/2025 10:53 PM EST [facility] Anion Gap 12 6 - 16 mmol/L 08/28/2025 10:53 PM EST [facility] Total Calcium, Plasma 10.4(H) 8.9 - 10.2 mg/dL 08/28/2025 10:53 PM EST [facility] eGFRcr 75.7 mL/min/1.7 3m*2 08/28/2025 10:53 PM EST [facility] Comment:Reported eGFRcr in m L/min/1.73m2 is based the CKD-EPI 2020 equation that does not use a race coefficient. Blood Venous blood specimen / Unknown Venipuncture / Unknown 08/28/2025 10:05 PM EST 08/28/2025 10:22 PM EST us Mahendra Kent MD LAB BLOOD ORDERABLES Final Res ult [facility] [address] [place] [address] * (ABNORMAL) POCT glucose meter (08/16/2025 4:18 PM EST) Only the most recent of44 resultswithin the time period is included. POCT Glucose 123(H) 74 - 99 mg/dL 08/16/2025 4:20 PM EST [facility] Comment:Accuracy of a glucos e result [...] for testing. Comment 08/16/2025 4:20 PM EST [facility] Stewarding Supervisor ID Carmen Reyes 4:20 PM EST [facility] Device ID [id number] 08/16/2025 4:20 PM EST [facility] Specimen Type POC Capillary 08/16/2025 4:20 PM EST [facility] Blood Capillary blood specimen / Unknown 08/16/2025 4:18 PM EST 08/16/2025 4:20 PM EST us Uche Fonseca MD LAB POINT OF CARE TE ST DOCKED DEVICE UNSOLICITED RESULTS Final Result [facility] [address] [place] [address] * (ABNORMAL) CBC and differential (08/16/2025 2:57 AM EST) Only the most recent of6 resultswithin the time period is included. WBC Count 6.91 3.70 - 10.30 10*3/uL LAB HEMATOLOGY METHOD 08/16/2025 3:17 AM EST [facility] RBC Count 4.69 4.60 - 6.10 10*6/uL LAB HEMATOLOGY METHOD 08/16/2025 3:17 AM EST [facility] HGB 13.7 13.7 - 17.5 g/dL LAB HEMATOLOGY METHOD 08/16/2025 3:17 AM EST [facility] HCT 40.1 40.0 - 51.0 % LAB HEMATOLOGY METHOD 08/16/2025 3:17 AM EST [facility] Platelet Count 214 155 - 369 10*3/uL LAB HEMATOLOGY METHOD 08/16/2025 3:17 AM EST [facility] MCV 86 79 - 98 fL LAB HEMATOLOGY METHOD 08/16/2025 3:17 AM EST [facility] MCH 29.2 26.0 - 32.0 pg LAB HEMATOLOGY METHOD 08/16/2025 3:17 AM EST [facility] MCHC 34.2 30.7 - 35.5 g/dL LAB HEMATOLOGY METHOD 08/16/2025 3:17 AM EST [facility] RDW 11.4(L) 11.5 - 14.5 % LAB HEMATOLOGY METHOD 08/16/2025 3:17 AM EST [facility] MPV 11.8 8.8 - 12.5 fL LAB HEMATOLOGY METHOD 08/16/2025 3:17 AM EST [facility] nRBC 0.0 <=0.0 per 100 WBCs LAB HEMATOLOGY METHOD 08/16/2025 3:17 AM EST [facility] Differential Type Automated LAB HEMATOLOGY METHOD 08/16/2025 3:17 AM EST [facility] Neutrophils % 59 % LAB HEMATOLOGY METHOD 08/16/2025 3:17 AM EST [facility] Lymphocytes % 24 % LAB HEMATOLOGY METHOD 08/16/2025 3:17 AM EST [facility] Monocytes % 11 % LAB HEMATOLOGY METHOD 08/16/2025 3:17 AM EST [facility] Eosinophils % 4 % LAB HEMATOLOGY METHOD 08/16/2025 3:17 AM EST [facility] Basophils % 1 % LAB HEMATOLOGY METHOD 08/16/2025 3:17 AM EST [facility] Immature Granulocytes % 1 % LAB HEMATOLOGY METHOD 08/16/2025 3:17 AM EST [facility] Neutrophils Absolute 4.13 1.60 - 6.10 10*3/uL LAB HEMATOLOGY METHOD 08/16/2025 3:17 AM EST [facility] Lymphocytes Absolute 1.66 1.20 - 3.90 10*3/uL LAB HEMATOLOGY METHOD 08/16/2025 3:17 AM EST [facility] Monocytes Absolute 0.75 0.30 - 0.90 10*3/uL LAB HEMATOLOGY METHOD 08/16/2025 3:17 AM EST [facility] Eosinophils Absolute 0.25 0.00 - 0.50 10*3/uL LAB HEMATOLOGY METHOD 08/16/2025 3:17 AM EST [facility] Basophils Absolute 0.08 0.00 - 0.10 10*3/uL LAB HEMATOLOGY METHOD 08/16/2025 3:17 AM EST [facility] Immature Granulocytes Absolute 0.04 0.00 - 0.06 10*3/uL LAB HEMATOLOGY METHOD 08/16/2025 3:17 AM EST [facility] Blood Venous blood specimen / Unknown Venipuncture / Unknown 08/16/2025 2:57 AM EST 08/16/2025 3:06 AM EST Narrative [facility] - 08/16/2025 3:17 AM EST Therapeutic decision making should be based on absolute values, rather than percentages. us August TEJEDA LAB BLOOD ORDERABLES F inal Result [facility] [address] [place] [address] * Phosphorus, Plasma (08/16/2025 2:57 AM EST) Only the most recent of8 resultswithin the time period is included. Phosphorus, Plasma 2.6 2.5 - 4.5 mg/dL 08/16/2025 3:36 AM EST [facility] Blood Venous blood specimen / Unknown Venipuncture / Unknown 08/16/2025 2:57 AM EST 08/16/2025 3:05 AM EST us Fabienne Palm MD LAB BLOOD ORDERABLES Coleen l Result Performing Organization Address City/[facility] Co de Phone Number [facility] [address] [place] [address] * Magnesium, Plasma (08/16/2025 2:57 AM EST) Only the most recent of8 resultswithin the time period is included. Magnesium, Plasma 2.1 1.9 - 2.4 mg/dL 08/16/2025 3:36 AM EST [facility] Blood Venous blood specimen / Unknown Venipuncture / Unknown 08/16/2025 2:57 AM EST 08/16/2025 3:05 AM EST us Fabienne Palm MD LAB BLOOD ORDERABLES Coleen l Result Performing Organization Address City/[facility] de Phone Number [facility] [address] [place] [address] * (ABNORMAL) Comprehensive metabolic panel (08/16/2025 2:57 AM EST) Only the most recent of4 resultswithin the time period is included. Glucose, Plasma 198(H) 74 - 99 mg/dL 08/16/2025 3:36 AM EST [facility] BUN, Plasma 30(H) 7 - 21 mg/dL 08/16/2025 3:36 AM EST [facility] Creatinine, Plasma 1.03 0.70 - 1.20 mg/dL 08/16/2025 3:36 AM EST [facility] BUN/Creatinine Ratio 29 08/16/2025 3:36 AM EST [facility] Sodium, Plasma 133(L) 136 - 145 mmol/L 08/16/2025 3:36 AM EST [facility] Potassium, Plasma 4.1 3.6 - 4.9 mmol/L 08/16/2025 3:36 AM EST [facility] Chloride, Plasma 100 97 - 107 mmol/L 08/16/2025 3:36 AM EST [facility] CO2, Plasma 22 22 - 29 mmol/L 08/16/2025 3:36 AM EST [facility] Anion Gap 11 6 - 16 mmol/L 08/16/2025 3:36 AM EST [facility] Total Calcium, Plasma 9.5 8.9 - 10.2 mg/dL 08/16/2025 3:36 AM EST [facility] Total Protein 6.4 6.3 - 7.9 g/dL 08/16/2025 3:36 AM EST [facility] Albumin, Plasma 3.3(L) 3.5 - 5.2 g/dL 08/16/2025 3:36 AM EST [facility] AST, Plasma 57(H) 10 - 50 U/L 08/16/2025 3:36 AM EST [facility] ALT, Plasma 55(H) 10 - 50 U/L 08/16/2025 3:36 AM EST [facility] Alkaline Phosphatase, Plasma 90 40 - 115 U/L 08/16/2025 3:36 AM EST [facility] Total Bilirubin, Plasma <0.2(L) 0.2 - 1.1 mg/dL 08/16/2025 3:36 AM EST [facility] eGFRcr 83.7 mL/min/1.7 3m*2 08/16/2025 3:36 AM EST [facility] Comment:Reported eGFRcr in m L/min/1.73m2 is based the CKD-EPI 2020 equation that does not use a race coefficient. Blood Venous blood specimen / Unknown Venipuncture / Unknown 08/16/2025 2:57 AM EST 08/16/2025 3:05 AM EST us August TEJ[facility]A LAB BLOOD ORDERABLES F inal Result [facility] [address] [place] [address] * Vancomycin, Peak, Plasma Please draw ~2 hours after 0600 dose of vancomycin finishes infusing. Consider obtaining level via peripheral stick. If peripheral stick is not feasible, please ensure that line is flushed well prior to drawing level. Than... (08/13/2025 9:12 AM EST) Only the most recent of2 resultswithin the time period is included. Vancomycin, Peak, Plasma 33.3 20.0 - 40.0 ug/mL 08/13/2025 9:44 AM EST [facility] Blood Venous blood specimen / Unknown Venipuncture / Unknown 08/13/2025 9:12 AM EST 08/13/2025 9:16 AM EST Narrative [facility] - 08/13/2025 9:44 AM EST Therapeutic Peak level: 20-40ug/mL Supra-therapeutic Peak level: >40 ug/mL Uche Fonseca MD LAB BLOOD ORDERABLES Final Re sult Performing Organization Address City/[facility]/ZIP Co de Phone Number [facility] [address] [place] [address] * Lavender Top (08/13/2025 5:39 AM EST) Pathologist [facility] Extra Hold for add-ons 08/13/2025 8:01 AM EST [facility] Comment:Auto resulted. Blood Venous blood specimen / Unknown 08/13/2025 5:39 AM EST 08/13/2025 5:44 AM EST Uche Fnoseca MD LAB BLOOD ORDERABLES Final Re sult [facility] [address] [place] [address] * Vancomycin, Trough, Plasma Please draw ~30 minutes prior to dose due at 0600 on 08/13. Please do NOT hold dose awaiting level to return. Consider obtaining level via peripheral stick. If peripheral stick is not feasible, please ensure that line i... (08/13/2025 5:39 AM EST) Only the most recent of2 resultswithin the time period is included. Vancomycin, Trough, Plasma 13.7 10.0 - 20.0 ug/mL 08/13/2025 6:15 AM EST [facility] Blood Venous blood specimen / Unknown Venipuncture / Unknown 08/13/2025 5:39 AM EST 08/13/2025 5:46 AM EST Narrative [facility] - 08/13/2025 6:15 AM EST Therapeutic Trough level: 10-20ug/mL Supra-therapeutic Trough level: >20 ug/mL Uche Fonseca MD LAB BLOOD ORDERABLES Final Re sult Performing Organization Address City/[facility]/ZIP Co de Phone Number [facility] [address] [place] [address] * FL Less than 1 Hour Intraoperative (08/11/2025 1:30 PM EST) Narrative IMAGING - 08/11/2025 8:16 PM EST Images were obtained for surgical purposes. See Andie Moyer's surgical note in the patient's chart for the findings. Andie Moyer MD IMG FLUOROSCOPY PROCEDURE S Final Result Performing Organization Address [facility] Co de Phone Number IMAGING * Fungal Culture, Tissue and BACILIO (08/11/2025 1:02 PM EST) Only the most recent of2 resultswithin the time period is included. Culture Reading Mycological 4 Weeks No Fungal Growth at 4 Weeks 09/08/2025 9:02 AM EST [facility] BACILIO No fungal elements seen 09/08/2025 9:02 AM EST [facility] Bone Structure of toe of left foot / Unknown 08/11/2025 1:02 PM EST 08/11/2025 1:38 PM EST Comment:Pre-op diagnosis: Cellulitis and abscess of toe of left foot [L03.032, L02.612] Andie Moyer MD LAB MICROBIOLOGY - GENERA L ORDERABLES Final Result Performing Organization Address City/[facility]/ZIP Co de Phone Number [facility] [address] [place] [address] * (ABNORMAL) Bone Culture and Gram Stain (08/11/2025 1:02 PM EST) Only the most recent of2 resultswithin the time period is included. Culture Light Growth 08/13/2025 1:45 PM EST [facility] Culture Staphylococcus aureus(A) 08/13/2025 1:45 PM EST [facility] Comment: For susceptibility results refer to: [facility]-[id number] The organism value for this result has been updated. These results have been appended to the previously preliminary verified report. Gram Stain Result No polymorphonuclear leukocytes seen 08/13/2025 1:45 PM EST [facility] Gram Stain Result No organisms seen 08/13/2025 1:45 PM EST [facility] Bone Structure of toe of left foot / Unknown 08/11/2025 1:02 PM EST 08/11/2025 1:38 PM EST Comment:Pre-op diagnosis: Cellulitis and abscess of toe of left foot [L03.032, L02.612] Parko S Anastaciaos LAB MICROBIOLOGY - GENERA L ORDERABLES Final Result Performing Organization Address City/[facility] Co de Phone Number [facility] [address] [place] [address] * Anaerobic Culture (08/11/2025 1:02 PM EST) Only the most recent of2 resultswithin the time period is included. Culture No anaerobes isolated 08/15/2025 11:08 AM EST [facility] Bone Structure of toe of left foot / Unknown 08/11/2025 1:02 PM EST 08/11/2025 1:38 PM EST Comment:Pre-op diagnosis: Cellulitis and abscess of toe of left foot [L03.032, L02.612] us [employer] MD LAB MICROBIOLOGY - GENERA L ORDERABLES Final Result Performing Organization Address City/[facility]/ZIP Co de Phone Number [facility] [address] [place] [address] * Surgical Pathology Exam (08/11/2025 12:57 PM EST) Case Report Surgical Pathology Case: [id number] Authorizing Provider: Andie Moyer MD Collected: 08/11/2025 1257 Ordering Location: [facility]PER[facility] ROOM Received: 08/11/2025 1317 Pathologist: Diana King MD Specimen: Toe, Left, 4th Left Toe 08/16/2025 12:51 PM EST [facility] Final Diagnosis A. 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 - NO ACUTE OSTEOMYELITIS IDENTIFIED 08/16/2025 12:51 PM EST [facility] at 1251 EST Clinical Information Cellulitis and abscess of toe of left foot [L03.032, L02.612] 08/16/2025 12:51 PM EST [facility] Gross Description A. 4TH LEFT [...] resection margin is a roughened cut surface. Longitudinal Float Operator sections are submitted in cassettes A1-A3 as follows: A1: Skin resection margin. A2: Roughened bone resection margin, submitted for decal. A3: Full-thickness cross section of ulceration with underlying bone, submitted for decal. Amisha C Jose Alberto 08/16/2025 12:51 PM EST [facility] Bone Structure of toe of left foot / Unknown 08/11/2025 12:57 PM EST 08/11/2025 1:17 PM EST Comment:Pre-op diagnosis: Cellulitis and abscess of toe of left foot [L03.032, L02.612] us Andie Moyer MD LAB PATHOLOGY ORDERABLES Final Result [facility] [address] [place] [address] * MT AN ELECTIVE SUPRAGLOTTIC AIRWAY, PB ANESTHESIA PLACEHOLDER (08/11/2025 12:28 PM EST) Narrative Lucia Reed CRNA, DNP - 08/11/2025 12:28 PM EST Lucia Reed CRNA, DNP 08/11/2025 12:39 PM Airway Date/Time: 08/11/2025 12:28 PM Reason: elective Airway not difficult General Information and Staff Patient location during procedure: OR ENDOSCOPY REGISTERED NURSE: Lucia Reed CRNA, DNP Performed: KRISTIE Patient [...] monitoring: continuous pulse ox, heart rate and marine resource economist Block type: popliteal and adductor canal Laterality: [...] MD ANESTHESIA ORDERABLES Final R esult * Vitamin D 25 Hydroxy (08/10/2025 3:22 AM EST) Vitamin D 25 Hydroxy 78.2 20.0 - 80.0 ng/mL 08/10/2025 8:08 AM EST [facility] Blood Venous blood specimen / Unknown Venipuncture / Unknown 08/10/2025 3:22 AM EST 08/10/2025 3:29 AM EST Narrative [facility] - 08/10/2025 8:08 AM EST Testing performed on PPI Occupational Therapy Assist, standardized against NIST SRM 2972. When testing [...] MD LAB BLOOD ORDERABLES Coleen santizo Result [facility] [address] [place] [address] * Vitamin D 1,25 dihydroxy (08/09/2025 2:30 AM EST) VITAMIN D, 1, 25-DIHYDROXY 44.9 19.9 - 79.3 pg/mL 08/12/2025 8:43 AM EST [facility] Blood Venous blood specimen / Unknown Venipuncture / Unknown 08/09/2025 2:30 AM EST 08/09/2025 2:44 AM EST us Fabienne Palm MD LAB BLOOD ORDERABLES Coleen sukhdev Result [facility] [address] [place] [address] * MR Foot Left w and wo [...] multiecho sequences were obtained utilizing T1 and [id number] with and without the administration of intravenous [...] by James Bianchi on 08/09/2025 8:22 AM August [facility] IMG MRI PROCEDURES Fin al Result * Blood Culture (Aerobic/Anaerobet Set) (08/07/2025 7:16 AM EST) Only the most recent of2 resultswithin the time period is included. Culture No growth at day 5 08/12/2025 9:01 AM EST [facility] Blood Structure of part of right upper limb / Unknown Venipuncture / Unknown 08/07/2025 7:16 AM EST 08/07/2025 8:30 AM EST Narrative [facility] - 08/12/2025 9:01 AM EST Low blood volume submitted, results may be compromised Luis Cody MD LAB MICROBIOLOGY - GENERAL [facility] Final Result [facility] [address] [place] [address] * ED HIV 1/2 Antibody/Antigen Screen w/Reflex to HIV 1/2 Differentiation (08/07/2025 6:42 AM EST) HIV 1 & 2 Antibody/Antigen Screen Non Reactive Non Reactive 08/07/2025 7:42 AM EST [facility] Comment:Screening for HIV 1 & 2 antibodies, and P24 antigen is NONREACTIVE. No confirmatory testing is required. Blood Venous blood specimen / Unknown Venipuncture / Unknown 08/07/2025 6:42 AM EST 08/07/2025 7:03 AM EST us Luis Cody MD LAB BLOOD ORDERABLES Final Resu lt [facility] [address] [place] [address] * Lactic acid, venous (08/07/2025 6:42 AM EST) Lactate, Venous, Whole Blood 1.0 0.5 - 2.2 mmol/L LAB HEMATOLOGY METHOD 08/07/2025 6:54 AM EST [facility] Blood Venous blood specimen / Unknown Venipuncture / Unknown 08/07/2025 6:42 AM EST 08/07/2025 6:53 AM EST us Luis Cody MD LAB BLOOD ORDERABLES Final Resu lt Performing Organization Address City/[facility]/ZIP Co de Phone Number [facility] [address] [place] [address] * Hepatitis C Antibody - ED (08/07/2025 6:42 AM EST) Hepatitis C Antibody Negative Negative 08/07/2025 7:43 AM EST [facility] Blood Venous blood specimen / Unknown Venipuncture / Unknown 08/07/2025 6:42 AM EST 08/07/2025 7:03 AM EST us Lius Cody MD LAB BLOOD ORDERABLES Final Resu lt Performing Organization Address City/[facility]/ZIP Co de Phone Number [facility] [address] [place] [address] * (ABNORMAL) PT-INR (08/07/2025 6:42 AM EST) Pathologist [facility] Prothrombin Time 14.7(H) 12.0 - 14.3 sec LAB COAGULATION METHOD 08/07/2025 7:45 AM EST [facility] INR 1.1 0.9 - 1.1 LAB COAGULATION METHOD 08/07/2025 7:45 AM EST [facility] Blood Venous blood specimen / Unknown Venipuncture / Unknown 08/07/2025 6:42 AM EST 08/07/2025 7:02 AM EST Narrative [facility] - 08/07/2025 7:45 AM EST OPTIMAL INR RANGES FOR PATIENT ON ORAL ANTICOAGULANT THERAPY Prevention of venous thromboembolism INR 2.0 to 3.0 In patients with heart disease: Atrial fibrillation INR 2.0 to 3.0 Valvular heart disease INR 2.0 to 3.0 Tissue heart valves INR 2.0 to 3.0 Mechanical prosthetic valves INR 2.5 to 3.5 Prevention of recurrent [place] INR 2.5 to 3.5 Luis Cody MD LAB BLOOD ORDERABLES Final Resu lt Performing Organization Address City/[facility]/ZIP Co de Phone Number [facility] [address] [place] [address] * Type and screen (08/07/2025 6:42 AM [...] TEST ORDERABLES Final Result Performing Organization Address [facility] de Phone Number [facility] [address] [place] [address] * (ABNORMAL) Hemoglobin A1c (08/07/2025 6:42 AM EST) Hemoglobin A1c 9.5(H) <5.7 % 08/07/2025 3:41 PM EST [facility] Blood Venous blood specimen / Unknown Venipuncture / Unknown 08/07/2025 6:42 AM EST 08/07/2025 7:06 AM EST Narrative [facility] - 08/07/2025 3:41 PM EST HA1C Interpretive Data: Diagnosis of Diabetes: Diabetic > or = 6.5% Pre-diabetic 5.7 to 6.4% Non-diabetic < or = 5.6% Glycemic Targets for Type I and Type II Diabetics: Non- Adults <7.0% Adults <6.0% Children and Adolescents <7.5% Source: [place] [employer]. Standards of medical care in diabetes,2017. Diabetes Care.2017:40 (suppl 1):S1-S135. us August [facility] LAB BLOOD ORDERABLES F inal Result Performing Organization Address City/[facility] Co de Phone Number [facility] [address] [place] [address] * EKG now - STAT (adult) (08/07/2025 6:35 AM EST) EKG DIAGNOSIS CLASS Abnormal MUSE ECG Ventricular Rate 72 BPM MUSE ECG Atrial Rate 72 BPM MUSE ECG MT Interval 178 ms MUSE ECG QRSD Interval 90 ms MUSE ECG QT Interval 358 ms MUSE ECG QTC Interval 392 ms MUSE ECG P [place] 31 degrees MUSE ECG R [place] -14 degrees MUSE ECG T Wave [place] 43 degrees MUSE ECG Diagnosis Normal sinus [...] ECG ORDERABLES Final Result Performing Organization Address [facility] Co de Phone Number MUSE ECG * CT MSK OUTSIDE IMAGES (08/06/2025 11:51 PM EST) Anatomical Region Laterality Modality Computed Tomogra phy 08/06/2025 us External Provider IMG CT PROCEDURES Edited Resul t - Final * XR MSK OUTSIDE IMAGES (08/06/2025 10:21 PM EST) Anatomical Region Laterality Modality Radiographic Diana ging 08/06/2025 Cayden Feldman DO IMG XR PROCEDURES Edited Res ult - Final from Last 3 Months Insurance [employer] COMP Advance Directives * Full Code (Latest Code Status on File) Date Activated Date Inactivated Comments 08/07/2025 1:32 PM 08/16/2025 7:08 PM Question Answer Comments I have reviewed the capacity from the link above and, if needed, have updated to appropriate status: Yes Care Teams Wind Turbine Blade Repair Technician Relationship Specialty Start Date End Date Iraida Reese APRN [address] [place] [address] PCP - General 08/07/25 Harriet Bush LPN VALUE-BASED TRANSFORMATION PROGRAM None Registered Nurse 08/17/25
--- OUTSIDE RECORDS SUMMARY | 2025-09-12 03:29 | XMS_ITS | Encounter Summary ---
Author Organization Healthcare Address [address] [id number] Care Team Providers Care Alining Inspector Name Role Phone Iraida Reese APRN Primary Care Provider Harriet Bush LPN Unavailable Unavaila ble Encounter Details Date Type Department Care Team (Latest Contact Info) Description 08/31/2025 Travel Social History Tobacco Use Types Packs/Day [...] any time in the past 12 m [facility], were you homeless or living in a prison (including now)? No 08/09/2025 [facility] Utilities Answer Date Recorded In the past [...] Assessment Author Have you been in contact wit h someone who was sick? No / Unsure 08/31/2025 11:16 AM Aydin Adrian y Do you have any of the following new or worsening symptoms? None of these 08/31/2025 11:16 AM Ning Adrian * Travel Screening Question Answer Date of Assessment Author Have you traveled [place] or domestically in the last month? No 08/31/2025 11:16 AM Ning Gaytan * Are you deaf or do you [...] Date Author Have you been in contact wit h someone who was sick? No / Unsure 08/31/2025 11:16 AM Aydin Adrian y Do you have any of the following new or worsening symptoms? None of these 08/31/2025 11:16 AM Ning Adrian * Travel Screening Question Answer Entry Date Author Have you traveled [place] or domestically in the last month? No 08/31/2025 11:16 AM Ning Gaytan * Because of a physical, mental, or emotional condition, do you have serious difficulty concentrating, remembering, or making decisions? (5 years old or older) Answer Entry Date Author No 08/16/2025 2:53 PM Marina Velázquez RN documented in this encounter Plan of Treatment Upcoming Encounters Date Type Department Care Team (Late st Contact Info) Description 09/24/2025 10:40 AM EST Office Visit [facility] at [facility] [address] [place] [address] Bossman Haywood DO [address] [place] [address] 09/30/2025 11:40 AM EST Office Visit [facility] [address] [facility] 5th Floor [address] [place] [address] Renea Li, PA [address] [place] [address] documented as of this encounter Visit Diagnoses Not on filedocumented in this encounter Additional Health Concerns Assessment Noted Time A fall risk assessment has been complete d for the patient 08/31/2025 11:42 AM EST A Body Mass Index follow-up plan has been documented for the patient 08/31/2025 12:16 PM EST documented as of this encounter Care Teams Alining Inspector Relationship Specialty Start Date End Date Iraida Reese APRN [address] [place] [address] PCP - General 08/07/25 Harriet Bush LPN VALUE-BASED TRANSFORMATION PROGRAM None Registered Nurse 08/17/25 documented as of this encounter
--- OUTSIDE RECORDS SUMMARY | 2025-09-12 03:29 | XMS_ITS | Encounter Summary ---
Author Organization Healthcare Address [address] [id number] Care Team Providers Care Credit Card Clerk Name Role Phone Iraida Reese APRN Primary Care Provider [phone] Harriet Bush LPN Unavailable Unavaila ble Encounter Details Date Type Department Care Team (Latest Contact Info) Description 08/28/2025 Travel Social History Tobacco Use Types Packs/Day [...] any time in the past 12 m [facility], were you homeless or living in a assisted (including now)? No 08/09/2025 [facility] Utilities Answer Date Recorded In the [...] someone who was sick? No / Unsure 08/28/2025 9:49 PM Jamel Little RN Do you have any of the following new or worsening symptoms? None of these 08/28/2025 9:49 PM Reina Little RN * Travel Screening Question Answer Date of Assessment Author Have you traveled [place] or domestically in the last month? No 08/28/2025 9:49 PM Reina Akbar RN * Are you deaf or do [...] someone who was sick? No / Unsure 08/28/2025 9:49 PM EST Jamel Pandey RN Do you have any of the following new or worsening symptoms? None of these 08/28/2025 9:49 PM EST Reina Pandey RN * Travel Screening Question Answer Entry Date Author Have you traveled [place] or domestically in the last month? No 08/28/2025 9:49 PM EST Reina Danielson RN * Because of a physical, mental, or emotional condition, do you have serious difficulty concentrating, remembering, or making decisions? (5 years old or older) Answer Entry Date Author No 08/16/2025 2:53 PM EST Marina Madison RN documented in this encounter Plan of Treatment Upcoming Encounters Date Type Department Care Team (Late st Contact Info) Description 09/24/2025 10:40 AM EST Office Visit Physical Medicine & Rehabilitation Clinic at [facility] [address] [place] [address] Bossman Haywood DO [address] [place] [address] 09/30/2025 11:40 AM EST Office Visit [facility] [address] [facility] 5th Floor [address] [place] [address] Renea Li, ILEANA [address] [place] [address] documented as of this encounter Visit Diagnoses Not on filedocumented in this encounter Additional Health Concerns Assessment Noted Time A Body Mass Index follow-up plan has been documented for the patient 08/16/2025 2:54 PM EST documented as of this encounter Care Teams Credit Card Clerk Relationship Specialty Start Date End Date Iraida Reese APRN [address] [place] [address] PCP - General 08/07/25 Harriet Bush LPN VALUE-BASED TRANSFORMATION PROGRAM None Registered Nurse 08/17/25 documented as of this encounter
--- NOTE | 2025-09-12 03:30 | XR_ITS ---
PROCEDURE INFORMATION: Exam: XR Left Foot Exam date and time: 09/12/2025 3:54 AM Age: 60 years old Clinical indication: Pain; Toes; Left; Prior surgery; Surgery date: <1 month; Surgery type: Toe amputation; Additional info: Pain at 4th toe amputation site, ? infxn TECHNIQUE: Imaging protocol: Radiologic exam of the left foot. Views: 1 or 2 views. COMPARISON: CT LLE W/ CON 08/06/2025 11:51 PM FINDINGS: Bones/joints: Postoperative changes of amputation at the base of the 4th proximal phalanx. Mild fragmentation along the residual 4th proximal phalangeal base likely postsurgical however comparison is limited with lack of postsurgical comparison. No definite changes of osseous infection. No acute fracture. Achilles enthesophyte. Soft tissues: Mild soft tissue swelling along the amputation site and lateral foot at the 5th MTP joint. IMPRESSION: 1. Postoperative changes of amputation at the base of the 4th proximal phalanx. 2. Mild soft tissue swelling along the amputation site and lateral foot at the 5th MTP joint. No definite soft tissue emphysema. 3. No definite osseous infection, however evaluation limited with lack of postsurgical comparison.
--- OUTSIDE RECORDS SUMMARY | 2025-09-12 03:31 | XMS_ITS | Encounter Summary ---
Author Organization Healthcare Address [address] [place] [address] Care Team Providers Care Plasma Processing Technician Name Role Phone Iraida Reese APRN Primary Care Provider [phone] Encounter Details Date Type Department Care Team [...] someone who was sick? No / Unsure 08/07/2025 5:18 AM Carol Kilgore RN Do you have any of the following new or worsening symptoms? None of these 08/07/2025 5:18 AM Carol Kilgore R N * Travel Screening Question Answer Date of Assessment Author Have you traveled [place] or domestically in the last month? No 08/07/2025 5:18 AM Carol Poe RN documented as of this encounter Mental Status * Communicable Disease Screening Question Answer Entry Date Author Have you been in contact wit h someone who was sick? No / Unsure 08/07/2025 5:18 AM Carol Kilgore RN Do you have any of the following new or worsening symptoms? None of these 08/07/2025 5:18 AM Carol Kilgore R N * Travel Screening Question Answer Entry Date Author Have you traveled [place] or domestically in the last month? No 08/07/2025 5:18 AM EST Carol Boucher RN documented in this encounter Plan of Treatment Upcoming Encounters Date Type Department Care Team (Late st Contact Info) Description 09/24/2025 10:40 AM EST Office Visit Physical Medicine & Rehabilitation Clinic at [facility] [address] [place] [address] Bossman Haywood, [address] [place] [address] 09/30/2025 11:40 AM EST Office Visit [facility] [address] 5th [address] [place] [address] Renea Li, PA [address] [place] [address] documented as of this encounter Visit Diagnoses Not on filedocumented in this encounter Additional Health Concerns Assessment Noted Time A Body Mass Index follow-up plan has been documented for the patient 08/16/2025 2:54 PM EST documented as of this encounter Care Teams Plasma Processing Technician Relationship Specialty Start Date End Date Iraida Reese APRN [address] [place] [address] PCP - General 08/07/25 documented as of this encounter
--- OUTSIDE RECORDS SUMMARY | 2025-09-12 03:31 | XMS_ITS | Encounter Summary ---
Author Organization Healthcare Address [address] [place] [address] Care Team Providers Care Machine Shop Lead Man Name Role Phone Iraida Reese APRN Primary Care Provider [phone] Encounter Details Date Type Department Care Team [...] any time in the past 12 m [facility], were you homeless or living in a assisted (including now)? No 08/09/2025 [facility] Utilities Answer Date Recorded In the [...] [facility] [address] [place] [address] Bossman Haywood DO [address] [place] [address] 09/30/2025 11:40 AM EST Office Visit [facility] [address] 5th Floor [address] [place] [address] Renea Li PA [address] [place] [address] documented as of this encounter Visit Diagnoses Not on filedocumented in this encounter Additional Health Concerns Assessment Noted Time A Body Mass Index follow-up plan has been documented for the patient 08/16/2025 2:54 PM EST documented as of this encounter Care Teams Machine Shop Lead Man Relationship Specialty Start Date End Date Iraida Reese APRN [address] [place] [address] PCP - General 08/07/25 documented as of this encounter
--- OUTSIDE RECORDS SUMMARY | 2025-09-12 03:31 | XMS_ITS | Encounter Summary ---
Author Organization Healthcare Address [address] [place] [address] Care Team Providers Care Corporate Planner Name Role Phone Justin Morales MD Primary Care Provider [phone] Iraida Reese APRN Primary Care Provider [phone] Encounter Details Date Type Department Care Team (Late st Contact Info) Description 08/06/2025 Orders Only External Location [address] [place] [address] Provider, External Social History Tobacco Use Types [...] any time in the past 12 m [facility], were you homeless or living in a skilled nursing (including now)? No 08/09/2025 [facility] Utilities Answer Date Recorded In the [...] [facility] [address] [place] [address] Bossman Haywood DO [address] [place] [address] 09/30/2025 11:40 AM EST Office Visit [facility] [address] [facility] 5th Floor [address] [place] [address] Renea Li, ILEANA [address] [place] [address] documented as of this encounter Procedures Procedure Name Priority Date/Time Associated Diagnosis Comments CT [facility] OUTSIDE IMAGES 08/06/2025 11:51 PM EST documented in this encounter Results * CT [facility] OUTSIDE IMAGES (08/06/2025 11:51 PM EST) Anatomical Region Laterality Modality Computed Tomogra phy 08/06/2025 us External Provider IMG CT PROCEDURES Edited Resul t - Final documented in this encounter Visit Diagnoses Not on filedocumented in this encounter Care Teams Corporate Planner Relationship Specialty [place] [id number] PCP - General 01/27/21 08/06/25 Iraida Reese APRN [address] [place] [address] PCP - General 08/07/25 documented as of this encounter
[2025-09-12 04:00] VITALS: BP 130/75; PULSE 61; O2SAT 95
--- NOTE | 2025-09-12 04:10 | ED_ITS ---
Discharge Plan Disposition Patient Disposition: Home, Self-Care Condition: Good Prescriptions Prescriptions: New amoxicillin-pot clavulanate 875-125 mg tablet 1 tab PO BID Qty: 14 0RF No Action finasteride 5 mg tablet 5 mg PO DAILY (DME) lancets [Accu-Chek Softclix Lancets] Misc See Rx Instructions .ROUTE .MEDSUPPLY Qty: 100 2RF Rx Instructions: As directed (DME) blood-glucose meter [Accu-Chek Guide Glucose Meter] Misc See Rx Instructions .ROUTE .MEDSUPPLY Qty: 1 0RF Rx Instructions: As directed (DME) Accu-Chek Guide test strips Strip See Rx Instructions .ROUTE .MEDSUPPLY Qty: 50 2RF Rx Instructions: Test blood sugar 2x a day. (DME) pen needle, diabetic 32 gauge x 5/32 needle See Rx Instructions .ROUTE .MEDSUPPLY Qty: 1200 0RF Rx Instructions: As directed insulin aspart U-100 [Novolog FlexPen U-100 Insulin] 100 unit/mL (3 mL) insulin pen 2 - 15 unit SQ ACHS Qty: 15 5RF Rx Instructions: Please check your blood sugar 30 minutes prior to eating 3 times a day. Please also check blood sugar before going to sleep. If blood sugar 151 to 200 mg/dL administer 2 units subcu short acting insulin If blood sugar 201 to 250 mg/dL administer 5 units subcu short acting insulin If blood sugar 251 to 300 mg/dL administer 8 units subcu short acting insulin If blood sugar 301 to 350 mg/dL administer 10 units subcu short acting insulin If blood sugar 351 to 400 mg/dL administer 15 units subcu short acting insulin If blood sugar over 400 mg/dL administer 15 units subcu short acting insulin and call doctor for further instructions. max daily 45 units atorvastatin 40 mg tablet 40 mg PO HS Qty: 90 1RF insulin glargine [Lantus Solostar U-100 Insulin] 100 unit/mL (3 mL) insulin pen 35 unit SQ DAILY Qty: 15 2RF lisinopril-hydrochlorothiazide 20-12.5 mg tablet 2 tab PO DAILY Qty: 90 2RF bupropion HCl 150 mg tablet sustained-release 12 hr 150 mg PO BID Qty: 60 2RF Referrals Follow up/Referrals: Jeremy Enamorado DO [Primary Care Provider, Family Practice] - See instructions Activity Restrictions/Add. Instructions Additional Instructions/Restrictions: You were evaluated in the ER and are believed to be appropriate for discharge at this time. Stop taking the cephalexin. Start taking the prescribed amoxicillin?clavulanate. Do not skip doses, do not stop taking this medication early. Continue taking all other home medications as previously prescribed. Continue with your wound care as previously recommended. Please call your surgeons office first thing Saturday morning and ask for a sooner appointment to have the infected area reevaluated by them. Follow-up with [facility] and [facility] as scheduled. Also follow-up with your primary care doctor for reevaluation in 2 to 3 days. Return to the ER with any new, worsening, or otherwise concerning symptoms. Clinical Impressions Clinical Impression: Wound of foot, Cellulitis Print Language Print Language: Kuwaiti Discharge ED Provider: Bria Coy General Adult HPI General Chief complaint: Extremity Injury, Lower Stated complaint: possible infection L foot Time Seen by Provider: 09/12/25 03:28 Mode of Arrival: Ambulatory Source of Information: Patient Description of Symptoms (Recalled from ER Triage Doc. by RN): Pt reports he had 4th digit on left fot amputated at [facility] on 08/12/2025, and he is coming in for evaluation due to having a purple look to the amputation site. He states he massaged the area and everthing went back to normal. Pt does rate pain 2/10 and dull. History of Present Illness HPI narrative: 60-year-old male presents to the ER for evaluation of left fourth toe amputation site. Patient had amputation of this toe performed on 08/12/2025 at . He states he has ongoing evaluations weekly with [facility]. They reportedly just keep an eye on the wound but do not perform specific wound care. He states yesterday his evaluation they appreciated some redness extending from the wound and up the lateral side of the foot so he was started on cephalexin 2 pills twice daily. He states since that time the redness has reduced. He has no fevers or chills associated with it. He states he has chronic 2 out of 10 dull pain at the site. Tonight he woke up approximately 2 hours prior to arrival and noticed discoloration of the area. He massaged it and states it improved but he came to the ER for further evaluation. He denies any other associated symptoms at this time. He states he has continued weekly follow-up with [facility] as well as follow-up with [facility] and his surgeon coming up within the next 2 weeks. Related Data Home Medications ?Medication ?Instructions ?Recorded ?Confirmed finasteride 5 mg tablet 5 mg PO DAILY 08/23/2508/25 Previous Rx's ?Medication ?Instructions ?Recorded blood-glucose meter (Accu-Chek #1 ea 04/16/24 Guide Glucose Meter) lancets (Accu-Chek Softclix #100 ea 04/16/24 Lancets) blood sugar diagnostic (Accu-Chek #50 ea 12/25/24 Guide test strips) pen needle, diabetic 32 gauge x #1,200 ea 01/28/25/ insulin aspart U-100 100 unit/mL 2 - 15 unit (0.02 - 0 .15 mL) SQ 04/26/25 (3 mL) subcutaneous pen (Novolog ACHS hyperglycemia #1 5 mL FlexPen U-100 Insulin aspart) atorvastatin 40 mg tablet 40 mg PO HS #90 tabs 5 insulin glargine 100 unit/mL (3 35 unit (0.35 mL) SQ D AILY 08/26/25 mL) subcutaneous pen (Lantus Diabetes #15 mL Solostar U-100 Insulin) bupropion HCl 150 mg tablet,12 hr 150 mg PO BID #60 ta bs 08/30/25 sustained-release lisinopril 20 2 tab PO DAILY for blood pre ssure 08/30/25 mg-hydrochlorothiazide 12.5 mg #90 tabs tablet amoxicillin 875 mg-potassium 1 tab PO BID #14 tabs clavulanate 125 mg tablet Allergies Allergy/AdvReac Type Severity Reaction Status Date / Time codeine AdvReac Intermediate Rash Verified 08/25/25 10:15 [facility] Disclaimer: The information contained in this section may have been updated after the patient was seen, as this information can be updated by other users. Medical History Contact dermatitis and eczema Acute pancreatitis Eyelid laceration, left Encounter for screening colonoscopy Viral upper respiratory tract infection Broken tooth Fonseca catheter in place Bladder cancer Bladder CA in situ Bladder cancer Constipation High cholesterol HTN (hypertension) Diabetes Constipation Surgical History History of colonoscopy History of prostate surgery Family History Grandmother Diabetes Family history of myocardial infarction Mother Diabetes Family history of myocardial infarction Father Diabetes Grandfather Diabetes Family history of myocardial infarction Social History Smoking Status: Never smoker alcohol intake: never substance use type: denies use current occupational status: employed Travel in the last 8 weeks?: None caffeine: Yes Have you lived/traveled outside [place] in past 30 days?: No Contact w/someone who lives/traveled outside US past 30 days?: No Exposure to someone with infectious disease in past 14 days?: No Do you have a fever (greater than 100.4 F or 38 C)?: No Have you tested positive for COVID-19?: No Exposed to someone with COVID-19 in past 14 days?: No Do you have a sore throat?: No Do you have a cough?: No Do you have any weakness?: No Do you have any diarrhea?: No Are you experiencing any unusual bleeding?: No Do you have any muscle aches/pain?: No Do you have any abdominal pain?: No Are you experiencing loss of taste or smell?: No Other Medical History Have you received the Flu Vaccine for this season: No Have you received the Pneumonia Vaccine: Yes ROS Obtained: Yes Systems reviewed as appropriate & no additional complaints except as documented Per HPI Physical Exam General General appearance: alert and in no apparent distress Head Head exam: atraumatic and normocephalic Eye Eye exam: Present PERRL and EOMI ENT ENT exam: Present mucous membranes moist Neck Neck exam: Present normal inspection and full ROM Chest Chest inspection: Present symmetric chest wall rise Respiratory Respiratory exam: Present normal lung sounds bilaterally; Absent respiratory distress, wheezes or stridor Cardiovascular Cardiovascular exam: Present regular rate and normal rhythm Extremities Exam Extremities exam: Present full ROM, normal capillary refill and other (Left fourth toe absent, healthy granulation tissue at the amputation site. Mild surrounding erythema with very slight induration, only extends approximately 1 cm from the wound itself. No tenderness of the tissue or over the fourth metatarsal. Neurovascularly intact.) Neurological Exam Neurological exam: Present alert and oriented X3; Absent motor sensory deficit Psychiatric Psychiatric exam: Present normal affect and normal mood Skin Skin exam: Present warm and dry Medical Decision Making Medical Records Medical records reviewed: Yes I reviewed the patient's medical records. Screening: Per USPSTF and CDC recommendations, given the prevalence of disease in our region, it is our hospital?s policy to screen for HIV and viral Hepatitis for all patients aged 18 and over and those with ongoing risk factors. Eduardo Inquiry Pt receiving controlled substance: No Vital Signs: 09/12/25 03:29 09/12/25 04:00 09/12/25 05:00 Temperature 97.9 F Temperature Source Oral Pulse Rate 61 62 Pulse Rate [Left] 68 Respiratory Rate 18 Blood Pressure 130/75 122/71 Blood Pressure [Right Arm] 150/81 H Blood Pressure Mean 100 88 Blood Pressure Mean [Right Arm] 104 Blood Pressure Source [Right Arm] Automatic Cuff Blood Pressure Position [Right Arm] Sitting 02 Sat by Pulse Oximetry 95 95 95 Oxygen Delivery Method Room Air Lab Data Lab Results 09/12/25 05:20: WBC 5.0, RBC 4.57 L, Hgb 13.4 L, Hct 39.0 L, MCV 85.3, MCH 29.3, MCHC 34.4, RDW 12.0, Plt Count 131 L, MPV 12.8 H, Neut % (Auto) 51.0, Lymph % (Auto) 28.0, [place] % (Auto) 14.8 H, Eos % (Auto) 4.6, Baso % (Auto) 1.0, Neut # (Auto) 2.6, Lymph # (Auto) 1.4, [place] # (Auto) 0.7, Eos # (Auto) 0.2, Baso # (Auto) 0.1, Sodium 137, Potassium 4.1, Chloride 104, Carbon Dioxide 26, Anion Gap 11.1, BUN 25 H, Creatinine 1.20, Estimated Creat Clear 82, Estimated GFR 62, Est GFR ( Amer) 75, Glucose 175 H, Calcium 10.0, Total Bilirubin 0.3, AST 38, ALT 34, Alkaline Phosphatase 70, Total Protein 6.8, Albumin 3.9, Globulin 2.9, Albumin/Globulin Ratio 1.3 09/12/25 05:20 09/12/25 05:20 Orders (Tests/Meds): ED MEDICATIONS Discontinued Medications Generic Name Dose Route Start Last Admin Trade Name Earnest PRN Reason Stop Dose Admin Amoxicillin/Clavulanate Potassium 1 each 09/12/25 05:35 Amoxicillin/Clavulanate Potassium 875/125mg Tablet PO 09/12/25 05:36 ONCE ONE ORDERS Category Date Time Status Foot XR left 2 views [XR foot LT 2V] Stat Exams 09/12/25 03:30 Completed CBC w/Auto Diff [Complete Blood Count Auto Diff] Stat Lab 09/12/25 05:20 Completed CMP [Comprehensive Metabolic Panel] Stat Lab 09/12/25 05:20 Completed Medical Decision Narrative: In summary, this 60-year-old male with history of hypertension, hypercholesterolemia, diabetes, previous bladder cancer presents to the emergency department today for evaluation of the wound from his left fourth toe amputation that was performed 1 month ago. On initial evaluation patient is hemodynamically stable, afebrile, GCS 15, ambulatory into the ER with crutches. Examination of the foot demonstrates healthy granulation tissue at the fourth toe amputation site with mild surrounding erythema and induration but this only extends approximately 1 cm from the wound on the dorsal aspect of the foot. Neurovascularly intact. He states this redness is significantly reduced since 24 hours ago. Remainder of exam unremarkable. Differential diagnosis includes but is not limited to wound infection, I considered abscess but appreciate no evidence of this clinically, I considered underlying osteomyelitis, cellulitis. Based on these concerns, I ordered basic hematologic and serum labs as well as x-ray left foot. Labs reviewed by me demonstrate no leukocytosis, chronic anemia stable from prior, CMP with mild prerenal azotemia but patient is tolerating oral intake, I do not believe IV fluids are indicated at this time. No other acutely actionable abnormalities. X-ray personally interpreted by me does not demonstrate obvious evidence of osteomyelitis, see radiology read for final interpretation. Given the patient's symptoms, lack of pain, only mild associated redness and induration I have low suspicion for significant deeper infection. After discussion with the patient, I believe it is important to change his antibiotics to a better antibiotic for diabetic foot infection. Augmentin was administered in the ER. I instructed the patient to stop the cephalexin he is currently taking and start taking Augmentin. The prescription was sent to his pharmacy of choice. He is agreeable to this. Dressing applied to the wound. He was given instructions for continued symptomatic monitoring and management, close follow-up including instructions to follow-up more closely with his surgeon. He was also given return precautions for the ER. He indicated understanding and the patient was discharged in stable condition. Critical Care Critical Care Time Critical Care Time: No
[2025-09-12 05:00] VITALS: BP 122/71; PULSE 62; O2SAT 95
[2025-09-12 05:37] LABS: Hematocrit 39.0 % (42.0-52.0); Hemoglobin 13.4 g/dL (14.1-18.0); Immature Granulocytes % 0.6 %; Mean Corpuscular HGB Conc 34.4 g/dL (31.8-35.4); Mean Corpuscular Hemoglobin 29.3 pg (27.0-31.2); Mean Corpuscular Volume 85.3 fl (80-94); Nucleated Red Blood Cells % 0 %; Platelet Count 131 K/mm3 (142-424); Red Blood Count 4.57 M/mm3 (4.60-6.20); Red Cell Distribution Width-SD 37.1 fL; White Blood Count 5.0 K/mm3 (4.8-10.8)
[2025-09-12 05:38] LABS: Albumin Level 3.9 g/dl (3.5-5.0); Chloride 104 mmol/L (98-107); Sodium 137 mmol/L (136-145)
[2025-09-12 05:39] LABS: Potassium 4.1 mmoL/L (3.5-5.1)
[2025-09-12 05:41] LABS: Alanine Aminotransferase 34 U/L (12-78); Albumin/Globulin Ratio 1.3 (1.1-1.8); Alkaline Phosphatase 70 U/L (38-126); Anion Gap 11.1 mEq/L (5-15); Aspartate Amino Transferase 38 U/L (17-59); Bilirubin,Total 0.3 mg/dl (0.2-1.3); Blood Urea Nitrogen 25 mg/dl (9-20); Carbon Dioxide 26 mmol/L (22.0-30.0); Creatinine Clearance Estimated 82 mL/min (50-200); Creatinine,Serum 1.20 mg/dl (0.66-1.25); Estimated Glomerular Filt Rate 62 ml/min (>60); GFR (African American) 75 ML/MIN (>60); Globulin 2.9 g/dL (1.3-3.2); Total Protein,Serum 6.8 g/dl (6.3-8.2)
[2025-09-12 05:42] LABS: Calcium 10.0 mg/dl (8.4-10.2); Glucose 175 mg/dl (74-100)
[2025-09-12] MEDS: AMOXICILLIN/CLAVULANATE POTASSIUM 875/125MG TABLET 1 EACH PO (06:15)
[2025-09-12 06:27] VITALS: BP 148/88; PULSE 89; RESP 14; TEMP 36.9; O2SAT 97
== END 2025-09-12 06:26 | disposition home or self-care (01) ==
PROVIDERS: Emergency Provider Emergency Medicine; PCP Student in an Organized Health Care Education/Training Program
DX: L03.032 Cellulitis of left toe (principal); E11.628 Type 2 diabetes mellitus with other skin complications; Z79.4 Long term (current) use of insulin
CPT/HCPCS: 73620; 80053; 85025; 99283; 99284